=== PATIENT | male | born 1955 | race Caucasian/White ===

== ENCOUNTER 2018-06-20 16:55 | Observation (INO) | payer OTHER, SELFPAY ==
[2018-06-20 16:55] VITALS: BP 111/79; PULSE 99; RESP 18; TEMP 36.6; O2SAT 100; BMI 25.9
--- NOTE | 2018-06-20 17:25 | CT_ITS ---
STUDY: CT ABDOMEN AND PELVIS WITH CONTRAST REASON FOR EXAM: Male, 62 years old. Abdominal pain around tumor site. RADIATION DOSAGE (If Supplied By Facility): CTDIvol = ( 16.03 ) mGy, DLP = ( 988.04 ) mGycm TECHNIQUE: Transaxial images were obtained from the dome of the diaphragm to the symphysis pubis without oral contrast. 100ML ml of Isovue 300 contrast was administered. Sagittal and coronal images were reconstructed. Individualized dose optimization techniques were used for this CT. COMPARISON: None. FINDINGS: The visualized lung bases are unremarkable. The visualized portions of the heart are within normal limits. The liver is diffusely low in attenuation consistent fatty infiltration. There is non-visualization of the gallbladder, which may be secondary to either contraction or a prior cholecystectomy. Normal spleen. Normal pancreas. Normal bilateral adrenal glands. Normal right kidney. Normal left kidney. Normal visualized stomach. Normal small intestine. There are anastomotic sutures within the sigmoid colon. The appendix appears to be surgically absent. There is a enhancing 1 cm soft tissue mass within the mesentery within the mid abdomen. There is an enhancing 6.9 x 2.6 x 5.4 cm soft tissue mass within the anterior abdominal wall within the supraumbilical region. This soft tissue mass extends into the peritoneal cavity and abuts loops of small bowel. There is an additional similar appearing soft tissue focus within the lower anterior abdominal wall cranial to the pubic symphysis measuring 4.7 x 2.6 x 5.1 cm Normal abdominal aorta. Normal inferior vena cava. Normal retroperitoneum. Normal urinary bladder. Normal abdominal wall. There are diffuse degenerative changes of the visualized lumbar spine. CT/Abdomen/Pelvis W IV Cont ONLY IMPRESSION: Soft tissue masses within the anterior abdominal wall consistent with metastases. Soft tissue focus within the mesentery consistent with peritoneal carcinomatosis. Fatty infiltration of the liver. Electronically Signed: Zahra Gutierrez MD at 18:58 EST Tel , Service support ,
--- NOTE | 2018-06-20 17:26 | ED.VISSUMM ---
- ER Visit Summary Date of Service: 06/20/18 Chief Complaint: Abdominal pain History of Present Illness: The patient is a 62 M history of colon CA with abdominal wall metastases. He has had a prior sigmoidectomy. Also prior appendectomy and cholecystectomy. He has had a prior PE and is on Xarelto. Patient's been admitted to [facility] twice in the last 4 months for abdominal pain and what he states her bowel obstructions. He is having the same type of pain for the last 2 days. Limited bowel movement in the last 24 hours. No melena. No fever. He does have nausea. But no vomiting. No dysuria. He is able to urinate. Physical Examination: Middle-aged male. Complaint of pain. Vital signs are stable. He is afebrile. HEENT exam unremarkable. Neck nontender no lymphadenopathy. Lungs clear to auscultation bilaterally. Heart regular rate and rhythm no murmur. Abdomen is soft. Nondistended. He does have a hard mass just above his umbilicus appears to be on the abdominal wall on the inside. He also has some mild bruising by his bellybutton on the which he states he gets from time to time. His abdomen otherwise is soft and nondistended. Normal bowel sounds. No peritoneal signs. He is moving all 4 extremities. Calves are without edema. No cords. Neurologically is awake and alert with no focal motor deficits. Test Results: CBC shows a white count of 3.0. Hemoglobin of 10. I have no old labs available for comparison. Gap of 8 creatinine 0.9. Liver enzymes are normal. Lipase is normal. He had a CAT scan done of his abdomen with IV contrast only which shows a soft tissue mass and peritoneal carcinomatosis but no signs of an acute obstruction. No perforation. Otherwise unremarkable. I discussed all his test results with the patient. Emergency Department Course and Treatment: Patient treated with normal saline times 1 L. Dilaudid for pain and Zofran for nausea. Patient is doing better on repeat exam. Him and his are very anxious he has had bowel obstructions before or the day concerned about going home. He is still having some pain and nausea. He will be admitted for observation and pain control. I have spoken to Dr. Yaneth wells for the patient's oncologist. I have the hospitalist on page for admission. Treatment Plan: Admit for pain control and further observation. Disposition: Observation Impression: Acute abdominal pain Known history of colon CA with abdominal wall metastases This note was generated with [employer] dictation software. It may contain incorrect words, spelling, and punctuation that were not noted in review of the chart prior to signing ED Disposition - Plan for ED Patient: Chief Complaint: Abd Pain Referrals: [facility] Doctor,Out of [Primary Care Provider] -
[2018-06-20] MEDS: HYDROmorphone 1 MG/ML Syringe IV ×2 (17:57→22:07)
[2018-06-20] MEDS: 0.9% Normal Saline 1,000 ML 1000 ML IV (17:57)
[2018-06-20] MEDS: Ondansetron 4 MG/2 ML Vial IV ×2 (17:57→23:10)
[2018-06-20 17:58] VITALS: BP 118/77; PULSE 93; RESP 20; O2SAT 99
[2018-06-20 18:15] LABS: Absolute Lymphocyte Count 1.28 X10^3/ul (0.83-4.51); Basophil# 0.03 X10^3/uL; Eosinophil# 0.05 X10^3/uL; Eosinophils% 1.7 % (0-5); Hematocrit 30.3 % (40-54); Lymphocyte # 1.28 X10^3/ul (4.0); Mean Corpuscular Hgb 29.8 pg (27.0-32.0); Mean Corpuscular Volume 90.2 fL (80-94); Mean Platelet Vol. 8.7 fl (6.2-12.0); Monocyte# 0.64 X10^3/uL; Monocyte% 21.5 % (0-10); Neutrophil # 0.98 X10^3/uL (2.7-7.7); Neutrophil % 32.8 % (47-70); Platelet Count 138 K/mm3 (150-450); RBC Distribution Width CV 14.9 % (11.6-14.6); RBC Distribution Width SD 48.8 fl (35.1-43.9); Red Blood Count 3.36 M/mm3 (4.6-6.2)
[2018-06-20 18:18] LABS: Differential Indicated SCAN CRITERIA MET; POSITIVE COUNT NO; POSITIVE DIFFERENTIAL YES; POSITIVE MORPHOLOGY NO
[2018-06-20 18:19] LABS: AST(SGOT) 24 U/L (15-37); Alanine Aminotransfer ALT/SGPT 26 U/L (16-61); Albumin, Serum 2.8 g/dL (3.2-5.0); Alkaline Phosphatase 82 U/L (45-117); Anion Gap 8 (5-15); BUN 13 mg/dL (7-18); BUN/Creat Ratio 13.5 RATIO (10-20); Calcium,Total 8.3 mg/dL (8.5-10.1); Chloride 114 mmol/L (98-107); Creatinine, Serum 0.96 mg/dL (0.70-1.30); EST Glomerular Filtration Rate 83 mL/min (>60); Est Glom Filt Rate - Afr Amer 101 mL/min (>60); Estimated Creatinine Clearance 85.32 ml/min; Globulin 2.6 g/dL (2.2-4.2); Glucose 85 mg/dL (74-106); Lipase 50 U/L (73-393); Potassium 3.7 mmol/L (3.5-5.1); Protein, Total 5.4 g/dL (6.4-8.2); Sodium Level 144 mmol/L (136-145)
[2018-06-20 18:32] LABS: Differential Comment SCANNED
[2018-06-20 19:00] VITALS: BP 115/72; PULSE 77; RESP 16; O2SAT 97
--- NOTE | 2018-06-20 20:30 | PCM.HP.STD ---
Problem List (1) Intractable abdominal pain Status: Acute History of Present Illness Date of Admission: 06/20/18 Chief Complaint: abdominal pain The patient is a 62 year old M with a significant history of colon cancer status post sigmoidectomy and chemotherapy pack in his abdomen, and chemotherapy every 2 weeks; PE who presented with progressively worsening severe nonradiating vance-umbilical pain that started about 2 days ago. He denies any aggravating factor. At emergency department he received some Dilaudid IV that helped with his pain. Associated with her symptoms is nausea with dry heaving but no vomiting. Patient has had 2 bowel obstruction that [facility]. The day before his admission he had regular bowel movement. However on the morning of his admission he had a small bowel movement. He reported that typically he has diarrhea with chemotherapy. Patient's oncologist Dr. Stone advised patient come to the emergency department. At the ED, CT of his abdomen showed metastasis of colon cancer without any noted bowel obstruction. At emergency department patient was going to be discharged home but because patient was fearful that he might have bowel obstruction he was subsequently admitted. Past Medical History Medical History: Medical History (Last Updated 06/20/18 @ 21:16 by Glen Johnson MD) Colon cancer C18.9 Allergies No Known Allergies Allergy (Verified 06/20/18 16:55) Home Medications: Ambulatory Orders Medication Instructions Recorded Dexamethasone [Decadron] 4 mg PO PRN PRN 06/20/18 Minocycline [Minocin] 100 mg PO BID 06/20/18 Ondansetron [Zofran] 8 mg PO PRN PRN 06/20/18 Potassium Chloride [Klor-Con M20] 40 meq PO BID 06/20/18 Rivaroxaban [Xarelto] 20 mg PO DAILY 06/20/18 proMETHazine tablet [Phenergan 25 mg PO PRN PRN 06/20/18 tablet] Surgical History: - - Sigmoidectomy; chemotherapy packing in abdomen Smoking Status: Former smoker Alcohol: Occasional - *Family History Paternal History Items: Cancer - His paternal grandfather had colon cancer. Review of Systems Constitutional: Reports: Anorexia. Denies: Chills, Fever, Weight Change HEENT: Denies: Head Aches, Sinus Congestion, Sinus Drainage Cardiovascular: Denies: Chest Pain, Palpitations Respiratory: Denies: Cough, Shortness of breath at rest, Sputum production Gastrointestinal: Reports: Abdominal Pain, Nausea. Denies: Vomiting Genitourinary: Denies: Dysuria Musculoskeletal: Denies: Joint Pain, Joint Tenderness Skin: Denies: Rash, Wounds Neurological: Denies: Numbness, Tingling, Focal weakness Psychiatric: Denies: Anxiety, Depression, Homicidal Ideations, Suicidal Ideations Hematologic/ Lymphatic: Denies: Easy Bruising, Easy Bleeding VTE Information - Inpt Only VTE Present on Admission: Yes VTE Mechan Device Prophylaxis: None VTE Pharm Prophylaxis ordered?: No Reason prophylaxis not ordered:: Treatment Not Indicated - Home Xarelto for PE continued. Patient Problems: Active and Suspected Problems (Last Updated 06/20/18 @ 21:16 by Glen Johnson MD) Intractable abdominal pain (Acute) - Physical Exam General: Alert, Oriented x3, Cooperative HEENT: Atraumatic, PERRLA, EOMI, Normocephalic Neck: Supple, No JVD, Negative Carotid Bruits Lungs: Clear to auscultation, Normal air movement Cardiovascular: Regular rate, No murmurs Abdomen: Soft, Bowel Sounds Not Present, Tender - Right vance-umbilical area. A palpable mass at right vance-umbilical area., - Extremities: No edema, Capillary Refill Less than 3 Seconds Skin: No rashes, No breakdown Musculoskeletal: No Tenderness to Palpation of Joints or Extremities Neurological: Cranial nerves II-XII grossly intact Psych/Mental Status: Normal Affect, Appropriate Vital Signs Temp Pulse Resp BP Pulse Ox 98 F 77 16 115/72 97 06/20/18 16:55 06/20/18 19:00 06/20/18 19:00 06/20/18 19:00 06/20/18 19:00 Oxygen Delivery Method Room Air Weight: 87 kg Body Mass Index (BMI) 25.9 Laboratory Tests Past 24 Hrs 06/20/18 06/20/18 17:49 17:49 WBC 3.0 L RBC 3.36 L Hgb 10.0 L Hct 30.3 L MCV 90.2 MCH 29.8 MCHC 33.0 RDW 14.9 H RDW Differential 48.8 H Plt Count 138 L MPV 8.7 Immature Gran % (Auto) 0.000 Neut % (Auto) 32.8 L Lymph % (Auto) 43.0 H [place] % (Auto) 21.5 H Eos % (Auto) 1.7 Baso % (Auto) 1.0 Absolute Neuts (auto) 1.0 L Absolute Lymphs (auto) 1.28 Total Counted Not Reportable Differential Comment SCANNED Sodium 144 Potassium 3.7 Chloride 114 H Carbon Dioxide 22.0 Anion Gap 8 BUN 13 Creatinine 0.96 Estim Creat Clear Calc 85.32 Est GFR (MDRD) Af Amer 101 Est GFR (MDRD) Non-Af 83 BUN/Creatinine Ratio 13.5 Glucose 85 Calcium 8.3 L Total Bilirubin 0.70 Direct Bilirubin 0.20 AST 24 ALT 26 Alkaline Phosphatase 82 Total Protein 5.4 L Albumin 2.8 L Globulin 2.6 Lipase 50 L Assessment/Plan All Active Problems (Last Updated 06/20/18 @ 21:16 by Glen Johnson MD) Intractable abdominal pain (Acute) The patient is a 62 year old M with a significant history of colon cancer status post sigmoidectomy and chemotherapy pack in his abdomen, and chemotherapy every 2 weeks; PE who presented with progressively worsening severe nonradiating vanec-umbilical pain. Intractable abdominal pain in the setting of colon cancer His abdominal pain is likely due to metastatic colon cancer. Supportive treatment with IV hydration; IV Dilaudid; antiemetics of IV Zofran and IV Phenergan. It is unlikely the patient has bowel obstruction since CT abdomen does not support that and he is not constipated but we will keep n.p.o. overnight and monitor. Colon cancer Status post sigmoidoscopy with chemotherapy packing with his abdomen; and regular chemotherapy. Patient reports that he go on vacation in June 2018 after which he will be started on radiation treatment. Reportedly he takes steroids when he gets his chemotherapy. Dr. Stone, his regular oncologist, consulted for inpatient. Facial rash Patient reports that some of his chemotherapy medication gives him facial rash for which reason he is on minocycline. Minocycline continued. History of PE Xarelto continued. Code Visit OBSV E&M: 03738 Initial observation care L3
[2018-06-20 22:00] VITALS: BP 128/82; PULSE 89; RESP 16; TEMP 36.9; O2SAT 100
[2018-06-20] MEDS: Lactated Ringers 1,000 ML 100 ML IV (22:17)
[2018-06-20 22:37] VITALS: BMI 25.9
[2018-06-20 22:40] VITALS: BMI 25.9
[2018-06-20 23:00] VITALS: PULSE 89; RESP 16; BMI 25.1
--- NOTE | 2018-06-20 23:33 | NURSING ---
pt got up to use the restroom was fine till he got back to his bed then nausea hit him, he vomited a small amt, zofran given
[2018-06-21] MEDS: Minocycline 100 MG Capsule PO (00:02)
[2018-06-21] MEDS: HYDROmorphone 1 MG/ML Syringe IV ×2 (01:06→06:13)
[2018-06-21 05:45] VITALS: BP 125/81; PULSE 91; RESP 18; TEMP 36.6; O2SAT 97
--- NOTE | 2018-06-21 06:00 | NURSING ---
After labs were drawn pt wanted to walk in wild without IV fluids being connected. Arlene PHILIPPE aware.
[2018-06-21] MEDS: 0.9% NaCl VAD Flush 10 ML IV ×6 (06:19→12:23)
[2018-06-21 06:27] LABS: Anion Gap 9 (5-15); BUN 12 mg/dL (7-18); BUN/Creat Ratio 12.8 RATIO (10-20); Calcium,Total 8.2 mg/dL (8.5-10.1); Chloride 114 mmol/L (98-107); Creatinine, Serum 0.94 mg/dL (0.70-1.30); EST Glomerular Filtration Rate 86 mL/min (>60); Est Glom Filt Rate - Afr Amer 104 mL/min (>60); Estimated Creatinine Clearance 87.14 ml/min; Glucose 76 mg/dL (74-106); Potassium 3.8 mmol/L (3.5-5.1); Sodium Level 146 mmol/L (136-145)
[2018-06-21 07:10] VITALS: O2SAT 95
[2018-06-21 07:10] LABS: Absolute Lymphocyte Count 1.16 X10^3/ul (0.83-4.51); Absolute Neutrophil Count 0.8 X10^3/uL (2.0-7.7); Basophil# 0.04 X10^3/uL; Basophil% 1.5 % (0-1); Differential Indicated SCAN CRITERIA MET; Eosinophils% 3.7 % (0-5); Hematocrit 30.1 % (40-54); Hemoglobin 9.7 g/dl (13.0-16.5); Lymphocyte # 1.16 X10^3/ul (4.0); Lymphocyte % 43.4 % (19-41); Mean Corp Hgb Conc 32.2 g/gl (32-36); Mean Corpuscular Hgb 29.7 pg (27.0-32.0); Mean Platelet Vol. 9.3 fl (6.2-12.0); Monocyte# 0.58 X10^3/uL; Monocyte% 21.7 % (0-10); Neutrophil # 0.79 X10^3/uL (2.7-7.7); Neutrophil % 29.7 % (47-70); POSITIVE COUNT NO; POSITIVE DIFFERENTIAL YES; POSITIVE MORPHOLOGY NO; Platelet Count 152 K/mm3 (150-450); RBC Distribution Width SD 50.6 fl (35.1-43.9); Red Blood Count 3.27 M/mm3 (4.6-6.2); White Blood Count 2.7 K/mm3 (4.4-11.0)
[2018-06-21 07:39] VITALS: BP 128/83; PULSE 89; RESP 16; TEMP 36.6; O2SAT 95
[2018-06-21] MEDS: Rivaroxaban 20 MG Tablet PO (07:48)
[2018-06-21] MEDS: Lactated Ringers 1,000 ML 100 ML IV (07:48)
[2018-06-21] MEDS: Senna/Docusate Sodium 1 Tablet 2 TABLET PO (07:54)
--- NOTE | 2018-06-21 08:13 | PCM.CONS.B ---
Problem List (1) Intractable abdominal pain Status: Acute Comment: Abdominal wall metastasis (2) Malignant neoplasm metastatic to colon with unknown primary site Status: Chronic (3) Ileus, unspecified Status: Acute - Consult Date of Consult: 06/21/[address] Glen Johnson regarding a patient with metastatic colon cancer presented with abdominal pain and nausea. My final recommendation will be communicated by electronic medical records and to the patient. - Reason for Consult Problem List (1) Intractable abdominal pain Status: Acute History of Present Illness Date of Admission: 06/20/18 Chief Complaint: abdominal pain & nausea The patient is a 62 year old M with a significant history of colon cancer status post sigmoidectomy in January 2015. His tumor was extending to the abdominal wall involving the muscularis propria of the small bowel. Patient underwent chemotherapy with FOLFOX finished in August 2015. CT scan in January 2016 shows small peritoneal omental metastases. Patient underwent additional chemotherapy with FOLFIRI underwent exploratory laparotomy and further resection of residual tumor with HIPEC intraperitoneal chemotherapy (mitomycin C) and bilateral ureteral stent placement on May 22, 2016. Remained free of disease until August 2017. On repeat CT scan unfortunately showed liver metastasis along with intra-abdominal metastasis. He started on chemotherapy FOLFIRI with cetuximab since spring 2017. His last cycle of chemotherapy was 2 weeks ago. He had a rash related to cetuximab & Vectibix on minocycline. He presented with progressively worsening severe nonradiating vance-umbilical pain that started about 2 days ago. He denies any aggravating factor. At emergency department he received some Dilaudid IV that helped with his pain Zofran which helped his nausea. Patient has been having loose stools since chemotherapy. No abdominal bloating or distention. Associated with symptoms of nausea with dry heaving but no vomiting. Patient has had 2 bowel obstruction that was [facility]. The day before his admission he had regular bowel movement. However on the morning of his admission he had a small bowel movement. He reported that typically he has diarrhea with chemotherapy. At the ED, CT of his abdomen showed metastasis of colon cancer without any noted bowel obstruction. Large mass seen in the tear abdominal mass consistent with metastasis. & Possible ileus. At emergency department patient was going to be discharged home but because patient was fearful that he might have bowel obstruction he was subsequently admitted seen by oncology. Past Medical History Medical History: Medical History (Last Updated 06/20/18 @ 21:16 by Glen Johnson MD) Colon cancer C18.9 Allergies No Known Allergies Allergy (Verified 06/20/18 16:55) Home Medications: Ambulatory Orders Medication Instructions Recorded Dexamethasone [Decadron] 4 mg PO PRN PRN 06/20/18 Minocycline [Minocin] 100 mg PO BID 06/20/18 Ondansetron [Zofran] 8 mg PO PRN PRN 06/20/18 Potassium Chloride [Klor-Con M20] 40 meq PO BID 06/20/18 Rivaroxaban [Xarelto] 20 mg PO DAILY 06/20/18 proMETHazine tablet [Phenergan 25 mg PO PRN PRN 06/20/18 tablet] Surgical History: - - Sigmoidectomy; chemotherapy packing in abdomen Smoking Status: Former smoker Alcohol: Occasional - *Family History Paternal History Items: Cancer - His paternal grandfather had colon cancer. Review of Systems Constitutional: Reports: Anorexia. Denies: Chills, Fever, Weight Change HEENT: Denies: Head Aches, Sinus Congestion, Sinus Drainage Cardiovascular: Denies: Chest Pain, Palpitations Respiratory: Denies: Cough, Shortness of breath at rest, Sputum production Gastrointestinal: Reports: Abdominal Pain, Nausea. Denies: Vomiting Genitourinary: Denies: Dysuria Musculoskeletal: Denies: Joint Pain, Joint Tenderness Skin: Denies: Rash, Wounds Neurological: Denies: Numbness, Tingling, Focal weakness Psychiatric: Denies: Anxiety, Depression, Homicidal Ideations, Suicidal Ideations Hematologic/ Lymphatic: Denies: Easy Bruising, Easy Bleeding VTE Information - Inpt Only VTE Present on Admission: Yes VTE Mechan Device Prophylaxis: None VTE Pharm Prophylaxis ordered?: No Reason prophylaxis not ordered:: Treatment Not Indicated - Home Xarelto for PE continued. Patient Problems: Active and Suspected Problems (Last Updated 06/20/18 @ 21:16 by Glen Johnson MD) Intractable abdominal pain (Acute) - Physical Exam General: Alert, Oriented x3, Cooperative HEENT: Atraumatic, PERRLA, EOMI, Normocephalic Neck: Supple, No JVD, Negative Carotid Bruits Lungs: Clear to auscultation, Normal air movement Cardiovascular: Regular rate, No murmurs Abdomen: Soft, Bowel Sounds Not Present, Tender - Right vance-umbilical area. A palpable mass at right vance-umbilical area., - Extremities: No edema, Capillary Refill Less than 3 Seconds Skin: No rashes, No breakdown Musculoskeletal: No Tenderness to Palpation of Joints or Extremities Neurological: Cranial nerves II-XII grossly intact Psych/Mental Status: Normal Affect, Appropriate Vital Signs Temp Pulse Resp BP Pulse Ox 98 F 77 16 115/72 97 06/20/18 16:55 06/20/18 19:00 06/20/18 19:00 06/20/18 19:00 06/20/18 19:00 Oxygen Delivery Method Room Air Weight: 87 kg Body Mass Index (BMI) 25.9 Laboratory Results - last 24 hr 06/20/18 06/20/18 06/21/18 17:49 17:49 05:50 WBC 3.0 L RBC 3.36 L Hgb 10.0 L Hct 30.3 L MCV 90.2 MCH 29.8 MCHC 33.0 RDW 14.9 H RDW Differential 48.8 H Plt Count 138 L MPV 8.7 Immature Gran % (Auto) 0.000 Neut % (Auto) 32.8 L Lymph % (Auto) 43.0 H [place] % (Auto) 21.5 H Eos % (Auto) 1.7 Baso % (Auto) 1.0 Absolute Neuts (auto) 1.0 L Absolute Lymphs (auto) 1.28 Total Counted Not Reportable Differential Comment SCANNED Sodium 144 146 H Potassium 3.7 3.8 Chloride 114 H 114 H Carbon Dioxide 22.0 23.0 Anion Gap 8 9 BUN 13 12 Creatinine 0.96 0.94 Estim Creat Clear Calc 85.32 87.14 Est GFR (MDRD) Af Amer 101 104 Est GFR (MDRD) Non-Af 83 86 BUN/Creatinine Ratio 13.5 12.8 Glucose 85 76 Calcium 8.3 L 8.2 L Total Bilirubin 0.70 Direct Bilirubin 0.20 AST 24 ALT 26 Alkaline Phosphatase 82 Total Protein 5.4 L Albumin 2.8 L Globulin 2.6 Lipase 50 L 06/21/18 05:50 WBC 2.7 L RBC 3.27 L Hgb 9.7 L Hct 30.1 L MCV 92.0 MCH 29.7 MCHC 32.2 RDW 15.0 H RDW Differential 50.6 H Plt Count 152 MPV 9.3 Immature Gran % (Auto) 0.000 Neut % (Auto) 29.7 L Lymph % (Auto) 43.4 H [place] % (Auto) 21.7 H Eos % (Auto) 3.7 Baso % (Auto) 1.5 H Absolute Neuts (auto) 0.8 L Absolute Lymphs (auto) 1.16 Total Counted Not Reportable Differential Comment Sodium Potassium Chloride Carbon Dioxide Anion Gap BUN Creatinine Estim Creat Clear Calc Est GFR (MDRD) Af Amer Est GFR (MDRD) Non-Af BUN/Creatinine Ratio Glucose Calcium Total Bilirubin Direct Bilirubin AST ALT Alkaline Phosphatase Total Protein Albumin Globulin Lipase Assessment/Plan All Active Problems (Last Updated 06/20/18 @ 21:16 by Glen Johnson MD) Intractable abdominal pain (Acute) Nausea (Acute) Ileus (Acute) Leukopenia and anemia secondary to chemotherapy (Acute) Metastatic colon cancer (Chronic) The patient is a 62 year old M with a significant history of colon cancer status post sigmoidectomy with peritoneal metastasis He presented with progressively worsening severe nonradiating vance-umbilical pain secondary to abdominal wall metastasis Ileus and leukopenia/anemia secondary to chemotherapy 1) Intractable abdominal pain in the setting of metastatic colon cancer His abdominal pain is due to metastatic colon cancer. There is no evidence of small bowel obstruction. I personally reviewed CT scan with patient and family today. Plan: -Discharge home on MS Contin 15mg BID -Vicodin or ibuprofen every 6 hours as needed for breakthrough pain. -Start stool softeners; Senokot and Colace once his stool is formed -Continue Zofran and Phenergan as needed for nausea. 2) Colon cancer Status post sigmoidoscopy with chemotherapy on hold until after the new year. Patient reports that he go on vacation in June 2018; after which he will be started on palliative radiation treatment in July to his abdominal wall metastasis Plan: -Stop minocycline -Continue Xarelto -Follow-up with Dr. Stone next week. cc: Dr. Geraldo Stone; Dr. Glen Johnson
[2018-06-21] MEDS: morphine SR 15 MG Tablet PO (09:19)
--- NOTE | 2018-06-21 11:00 | CASEMGMT ---
DENAE CONTRERAS Face to Face with patient for initial transition planning/care coordination assessment. RN CM introduced self and role at [facility]. Patient lying in bed, alert and oriented. Patient willing to participate in assessment and is able to answer all questions appropriately. Care providers, pharmacy, and demographics verified. Patient wishes to discharge home, denies need for home health at this time. Patient states he has no further needs or concerns at this time. CM to follow for discharge planning needs that may arise. Disposition Plan: Patient to discharge home with family support and follow-up plans in place. Keyona FLORES, RN, CM
--- NOTE | 2018-06-21 11:31 | PCM.DC ---
- Discharge Diagnoses Current Active Problems: Current Active and Chronic Problems (Last Updated 06/20/18 @ 21:16 by Glen Johnson MD) Intractable abdominal pain (Acute) Abdominal wall metastasis Malignant neoplasm metastatic to colon with unknown primary site (Chronic) Ileus, unspecified (Acute) You will use the following diet at home:: No restrictions Your food should be the consistency of: Regular Your liquids should be the consistency of: Regular/Thin Discharge Activity: Return to Normal Activity Allergies/Adverse Reactions: Allergies hydromorphone [From Dilaudid] Adverse Reaction (Verified 06/21/18 07:14) Other URINARY RETENTION Medications to take at Discharge Ondansetron [Zofran] 8 mg PO PRN PRN 06/20/18 Potassium Chloride [Klor-Con M20] 40 meq PO BID 06/20/18 Rivaroxaban [Xarelto] 20 mg PO DAILY 06/20/18 proMETHazine tablet [Phenergan tablet] 25 mg PO PRN PRN 06/20/18 Bisacodyl [Dulcolax] 5 mg PO DAILY PRN PRN #30 tablet 06/21/18 Hydrocodone Bitart/Apap 5-325 [[place] 5/325] 1 tablet PO Q6H PRN PRN 7 Days #28 tablet 06/21/18 Magnesium Hydroxide [Milk Of Magnesia] 30 ml PO DAILY PRN PRN #1 bottle 06/21/18 Senna/Docusate Sodium [Senokot-S] 2 tablet PO BID #60 tablet 06/21/18 morphine SR tablet [Ms Contin] 15 mg PO BID #14 tablet 06/21/18 The following prescriptions were given: Bisacodyl [Dulcolax] 5 mg PO DAILY PRN PRN #30 tablet PRN Reason: Constipation Hydrocodone Bitart/Apap 5-325 [[place] 5/325] 1 tablet PO Q6H PRN PRN 7 Days #28 tablet PRN Reason: Severe Pain (6-05/01) Magnesium Hydroxide [Milk Of Magnesia] 30 ml PO DAILY PRN PRN #1 bottle PRN Reason: Constipation morphine SR tablet [Ms Contin] 15 mg PO BID #14 tablet Senna/Docusate Sodium [Senokot-S] 2 tablet PO BID #60 tablet Primary Care Physician: [facility] Doctor,Out of [NON-STAFF] - Please follow up with your Primary Care Physician in: 1-2 weeks Test Results: Test results from this visit will be discussed in further detail at your follow-up appointment, if applicable. Please Follow Up With: Geraldo Stone DO When: 1 week Proposed Discharge Date: 06/21/18
[2018-06-21 12:22] VITALS: BP 118/74; PULSE 100; RESP 18; TEMP 36.9; O2SAT 100
[2018-06-21] MEDS: Ibuprofen 400 MG Tablet PO (12:31)
--- NOTE | 2018-06-21 14:52 | DS.PCM_ITS ---
<Lester Trinh - Last Filed: 06/21/18 14:45> Discharge Date and Diagnosis Date of Admission: 06/20/18 Date of Discharge: 06/21/18 - Primary Discharge Diagnosis Intractable Abdominal pain 2/2 colorectal cancer with peritoneal carcinomatsosis, s/p sigmoidectomy, chemo. Hx PE - Secondary Discharge Diagnosis Chronic Problems (Last Updated 06/20/18 @ 21:16 by Glen Johnson MD) Malignant neoplasm metastatic to colon with unknown primary site (Chronic) Hospital Course and Treatment Imaging Results: CT/Abdomen/Pelvis W IV Cont ONLY IMPRESSION: Soft tissue masses within the anterior abdominal wall consistent with metastases. Soft tissue focus within the mesentery consistent with peritoneal carcinomatosis. Fatty infiltration of the liver. Consults: Yaneth - oncology Operations: None Procedures: None Summary of Care Provided: Hospital Course: The patient is a 62 year old M with pmhx as above who is being treated by Dr. Stone for colorectal cancer, mets to the liver, peritoneum, small bowel, completed chemo about a month prior, who presented to the ER with intractable abdominal pain. CT abdomen showed carcinomatosis as above, and there was concern for ileus. He was made NPO and admitted to the [facility] floor and oncology was consulted. Dr. Wolfe felt the pain was 2/2 the cancer, and there was no obstruction. He was placed on morphine and norco, and a bowel regimen, and discharged home. He will follow up with Dr. Stone next week. He plans to pursue radiation in July after touring [place]. Minocycline was DCd (was on for rash from chemo which is complete) Patient was seen by Lester Trinh PA-C under the supervision of Dr. Salazar [] - Physical Exam General: Alert, Oriented x3, Cooperative HEENT: Atraumatic, PERRLA, EOMI, Normocephalic Neck: Supple, No JVD, Negative Carotid Bruits Lungs: Clear to auscultation, Normal air movement Cardiovascular: Regular rate, No murmurs Abdomen: Bowel Sounds Present, Soft, Tender Extremities: No edema, Capillary Refill Less than 3 Seconds Skin: No rashes, No breakdown Musculoskeletal: No Tenderness to Palpation of Joints or Extremities Neurological: Cranial nerves II-XII grossly intact Psych/Mental Status: Normal Affect, Appropriate, Alert and oriented to time, place, person, mood and affect Vital Signs Temp Pulse Resp BP Pulse Ox 98.5 F 100 18 118/74 100 06/21/18 12:22 06/21/18 12:22 06/21/18 12:22 06/21/18 12:22 06/21/18 12:22 Oxygen Delivery Method Room Air Weight: 185 lb 6.54 oz Body Mass Index (BMI) 25.1 Intake and Output for Last 24 Hours 06/19/18 06/20/18 06/21/18 23:59 23:59 23:59 Intake Total 2234 / 2234 Output Total 925 / 925 Balance 1309 / 1309 Laboratory Tests Past 24 Hrs 06/20/18 06/20/18 06/21/18 17:49 17:49 05:50 WBC 3.0 L RBC 3.36 L Hgb 10.0 L Hct 30.3 L MCV 90.2 MCH 29.8 MCHC 33.0 RDW 14.9 H RDW Differential 48.8 H Plt Count 138 L MPV 8.7 Immature Gran % (Auto) 0.000 Neut % (Auto) 32.8 L Lymph % (Auto) 43.0 H [place] % (Auto) 21.5 H Eos % (Auto) 1.7 Baso % (Auto) 1.0 Absolute Neuts (auto) 1.0 L Absolute Lymphs (auto) 1.28 Total Counted Not Reportable Differential Comment SCANNED Sodium 144 146 H Potassium 3.7 3.8 Chloride 114 H 114 H Carbon Dioxide 22.0 23.0 Anion Gap 8 9 BUN 13 12 Creatinine 0.96 0.94 Estim Creat Clear Calc 85.32 87.14 Est GFR (MDRD) Af Amer 101 104 Est GFR (MDRD) Non-Af 83 86 BUN/Creatinine Ratio 13.5 12.8 Glucose 85 76 Calcium 8.3 L 8.2 L Total Bilirubin 0.70 Direct Bilirubin 0.20 AST 24 ALT 26 Alkaline Phosphatase 82 Total Protein 5.4 L Albumin 2.8 L Globulin 2.6 Lipase 50 L 06/21/18 05:50 WBC 2.7 L RBC 3.27 L Hgb 9.7 L Hct 30.1 L MCV 92.0 MCH 29.7 MCHC 32.2 RDW 15.0 H RDW Differential 50.6 H Plt Count 152 MPV 9.3 Immature Gran % (Auto) 0.000 Neut % (Auto) 29.7 L Lymph % (Auto) 43.4 H [place] % (Auto) 21.7 H Eos % (Auto) 3.7 Baso % (Auto) 1.5 H Absolute Neuts (auto) 0.8 L Absolute Lymphs (auto) 1.16 Total Counted Not Reportable Differential Comment Sodium Potassium Chloride Carbon Dioxide Anion Gap BUN Creatinine Estim Creat Clear Calc Est GFR (MDRD) Af Amer Est GFR (MDRD) Non-Af BUN/Creatinine Ratio Glucose Calcium Total Bilirubin Direct Bilirubin AST ALT Alkaline Phosphatase Total Protein Albumin Globulin Lipase Discharge Diet: No Restrictions Discharge Activity: Return to Normal Activity Home Medications: Medications to take at Discharge Ondansetron [Zofran] 8 mg PO PRN PRN 06/20/18 Potassium Chloride [Klor-Con M20] 40 meq PO BID 06/20/18 Rivaroxaban [Xarelto] 20 mg PO DAILY 06/20/18 proMETHazine tablet [Phenergan tablet] 25 mg PO PRN PRN 06/20/18 Bisacodyl [Dulcolax] 5 mg PO DAILY PRN PRN #30 tablet 06/21/18 Hydrocodone Bitart/Apap 5-325 [Bul[place]de 5/325] 1 tablet PO Q6H PRN PRN 7 Days #28 tablet 06/21/18 Magnesium Hydroxide [Milk Of Magnesia] 30 ml PO DAILY PRN PRN #1 bottle 06/21/18 Senna/Docusate Sodium [Senokot-S] 2 tablet PO BID #60 tablet 06/21/18 morphine SR tablet [Ms Contin] 15 mg PO BID #14 tablet 06/21/18 Following Prescrptions Were Given to Patient: Bisacodyl [Dulcolax] 5 mg PO DAILY PRN PRN #30 tablet PRN Reason: Constipation Hydrocodone Bitart/Apap 5-325 [Bul[place]de 5/325] 1 tablet PO Q6H PRN PRN 7 Days #28 tablet PRN Reason: Severe Pain (-05/01) Magnesium Hydroxide [Milk Of Magnesia] 30 ml PO DAILY PRN PRN #1 bottle PRN Reason: Constipation morphine SR tablet [Ms Contin] 15 mg PO BID #14 tablet Senna/Docusate Sodium [Senokot-S] 2 tablet PO BID #60 tablet Primary Care Physician: [facility] Doctor,Out of [NON-STAFF] - Please follow up with your Primary Care Physician in: 1-2 weeks Please Follow Up With: Geraldo Stone DO When: 1 week Disposition: Home Minutes spent on discharge:: 35 Patient Condition:: Stable Medical Necessity - Tobacco Use Smoking Status: Former smoker Meaningful Use Info Meaningful Use Diagnoses (Choose all that apply): None applicable <Glen Salazar - Last Filed: 06/21/18 15:00> Discharge Date and Diagnosis - Secondary Discharge Diagnosis Chronic Problems (Last Updated 06/20/18 @ 21:16 by Glen Johnson MD) Malignant neoplasm metastatic to colon with unknown primary site (Chronic) Hospital Course and Treatment Summary of Care Provided: Hospitalist note: Discharge summary above reviewed and I agree with above discharge plan. Patient was admitted for intractable abdominal pain in context of history of metastatic colon cancer. CT scan abdomen and pelvis with IV contrast revealed soft tissue masses within the anterior abdominal wall consistent with metastasis as well as soft tissue focus within the mesentery consistent with peritoneal carcinomatosis. His routine blood work was remarkable for chronic anemia, otherwise normal. His LFT and lipase were normal. Patient was treated with pain medications. Oncology consulted and stated that his pain due to the metastatic cancer and there was no evidence of bowel obstruction. His vital signs were stable. With pain medications, his pain improved. Patient discharged home in a stable medical condition, discharged on [place] as needed for pain, Zofran as needed for nausea and vomiting, plan to follow-up with Dr. Stone next week, recommended follow-up with PCP in 1-2 weeks. - Physical Exam General: Alert, Oriented x3, Cooperative, No apparent distress. HEENT: Atraumatic, PERRLA, EOMI. Neck: Supple, No JVD, Negative Carotid Bruits, Trachea Midline, Thyroid Normal. Lungs: Clear to auscultation, Normal air movement, No rhonchi, No wheeze, No rales. Cardiovascular: Regular rate, Regular Rhythm, Normal S1, Normal S2, PMI Normal. Abdomen: Bowel Sounds Present, Soft, tenderness is just above the umbilicus, no guarding or rigidity, Non-Distended, No Hepato-splenomegaly. Extremities: No clubbing, No cyanosis, No edema Skin: No rashes, No breakdown Neurological: Neuro grossly intact Vital Signs are stable. This note was generated with [employer] dictation software. It may contain incorrect words, spelling, and punctuation that were not noted in checking the note before signing. - Physical Exam Vital Signs Temp Pulse Resp BP Pulse Ox 98.5 F 100 18 118/74 100 06/21/18 12:22 06/21/18 12:22 06/21/18 12:22 06/21/18 12:22 06/21/18 12:22 Oxygen Delivery Method Room Air Weight: 185 lb 6.54 oz Body Mass Index (BMI) 25.1 Intake and Output for Last 24 Hours 06/19/18 06/20/18 06/21/18 23:59 23:59 23:59 Intake Total 2234 / 2234 Output Total 925 / 925 Balance 1309 / 1309 Laboratory Tests Past 24 Hrs 06/20/18 06/20/18 06/21/18 17:49 17:49 05:50 WBC 3.0 L RBC 3.36 L Hgb 10.0 L Hct 30.3 L MCV 90.2 MCH 29.8 MCHC 33.0 RDW 14.9 H RDW Differential 48.8 H Plt Count 138 L MPV 8.7 Immature Gran % (Auto) 0.000 Neut % (Auto) 32.8 L Lymph % (Auto) 43.0 H [place] % (Auto) 21.5 H Eos % (Auto) 1.7 Baso % (Auto) 1.0 Absolute Neuts (auto) 1.0 L Absolute Lymphs (auto) 1.28 Total Counted Not Reportable Differential Comment SCANNED Sodium 144 146 H Potassium 3.7 3.8 Chloride 114 H 114 H Carbon Dioxide 22.0 23.0 Anion Gap 8 9 BUN 13 12 Creatinine 0.96 0.94 Estim Creat Clear Calc 85.32 87.14 Est GFR (MDRD) Af Amer 101 104 Est GFR (MDRD) Non-Af 83 86 BUN/Creatinine Ratio 13.5 12.8 Glucose 85 76 Calcium 8.3 L 8.2 L Total Bilirubin 0.70 Direct Bilirubin 0.20 AST 24 ALT 26 Alkaline Phosphatase 82 Total Protein 5.4 L Albumin 2.8 L Globulin 2.6 Lipase 50 L 06/21/18 05:50 WBC 2.7 L RBC 3.27 L Hgb 9.7 L Hct 30.1 L MCV 92.0 MCH 29.7 MCHC 32.2 RDW 15.0 H RDW Differential 50.6 H Plt Count 152 MPV 9.3 Immature Gran % (Auto) 0.000 Neut % (Auto) 29.7 L Lymph % (Auto) 43.4 H [place] % (Auto) 21.7 H Eos % (Auto) 3.7 Baso % (Auto) 1.5 H Absolute Neuts (auto) 0.8 L Absolute Lymphs (auto) 1.16 Total Counted Not Reportable Differential Comment Sodium Potassium Chloride Carbon Dioxide Anion Gap BUN Creatinine Estim Creat Clear Calc Est GFR (MDRD) Af Amer Est GFR (MDRD) Non-Af BUN/Creatinine Ratio Glucose Calcium Total Bilirubin Direct Bilirubin AST ALT Alkaline Phosphatase Total Protein Albumin Globulin Lipase Disposition: Home Minutes spent on discharge:: 24 Patient Condition:: Stable Meaningful Use Info Meaningful Use Diagnoses (Choose all that apply): None applicable Code Visit OBSV E&M: 54906 Observation care discharge
--- OUTSIDE RECORDS SUMMARY | 2018-08-15 23:26 | XMS RPT_ITS ---
:1955 Author Organization OHIP Care Team Providers Name Role Phone GERALDO STONE Referring Unavailable JUSTIN DHILLON Attending Unavailable GERALDO STONE Referring Unavailable JUSTIN DHILLON Admitting Unavailable JUSTIN DHILLON Attending Unavailable Glen Johnson Admitting Unavailable Mariely Chowdary Primary Care Unavailable Geraldo Stone Consulting Unavailable Glen Salazar Attending Unavailable Glen Johnson Admitting Unavailable Agyepong, Glen Attending Unavailable Chowdary, Mariely Primary Care Unavailable Agyepong, Glen Consulting Unavailable Agyepong, Glen Admitting Unavailable Chowdary, Mariely Primary Care Unavailable Masci, Geraldo Consulting Unavailable Ashelfah, Glen Attending Unavailable Ashelfah, Glen Consulting Unavailable SABOTA, ANGUS RODARTE Admitting Unavailable SABOTA, ANGUS RODARTE Attending Unavailable SABOTA, ANGUS RODARTE Primary Care Unavailable CHOWDARY, MARIELY T Referring Unavailable CHOWDARY, MARIELY T Consulting Unavailable PROVIDER, UNKNOWN Consulting Unavailable PROVIDER, UNKNOWN Consulting Unavailable PROVIDER, UNKNOWN Consulting Unavailable MAGANA, IZABELA Admitting Unavailable MAGANA, IZABELA Attending Unavailable MAGANA, IZABELA Primary Care Unavailable CHOWDARY, MARIELY T Consulting Unavailable CHOWDARY, MARIELY T Referring Unavailable PROVIDER, UNKNOWN Consulting Unavailable PROVIDER, UNKNOWN Consulting Unavailable PROVIDER, UNKNOWN Consulting Unavailable CHOWDARY, MARIELY T Referring Unavailable CHOWDARY, MARIELY T Consulting Unavailable MARGA, SKYLER RODARTE Admitting Unavailable OMRAN, SKYLER RODARTE Attending Unavailable MARGA, SKYLER RODARTE Primary Care Unavailable PROVIDER, UNKNOWN Consulting Unavailable PROVIDER, UNKNOWN Consulting Unavailable PROVIDER, UNKNOWN Consulting Unavailable MASCI, GERALDO A Referring Unavailable MASCI, GERALDO A Referring Unavailable MASCI, GERALDO A Referring Unavailable MASCI, GERALDO A Referring Unavailable MASCI, GERALDO A Attending Unavailable MASCI, GERALDO A Referring Unavailable MASCI, GERALDO A Referring Unavailable MASCI, GERALDO A Referring Unavailable MASCI, GERALDO A Referring Unavailable MASCI, GERALDO A Referring Unavailable MASCI, GERALDO A Referring Unavailable MASCI, GERALDO A Referring Unavailable MASCI, GERALDO A Referring Unavailable MASCI, GERALDO Galan Attending Unavailable MASCI, GERALDO A Referring Unavailable MASCI, GERALDO A Referring Unavailable MASCI, GERALDO A Referring Unavailable MASCI, GERALDO A Referring Unavailable MASCI, GERALDO A Referring Unavailable MASCI, GERALDO A Referring Unavailable MASCI, GERALDO A Referring Unavailable MASCI, GERALDO A Referring Unavailable MASCI, GERALDO A Referring Unavailable MASCI, GERALDO A Referring Unavailable MASCI, GERALDO A Referring Unavailable MASCI, GERALDO A Referring Unavailable MASCI, GERALDO A Referring Unavailable MASCI, GERALDO A Attending Unavailable MASCI, GERALDO A Referring Unavailable MASCI, GERALDO A Referring Unavailable MASCI, GERALDO A Referring Unavailable MASCI, GERALDO A Referring Unavailable MASCI, GERALDO A Referring Unavailable MASCI, GERALDO A Referring Unavailable MASCI, GERALDO A Referring Unavailable MASCI, GERALDO A Referring Unavailable MASCI, GERALDO A Referring Unavailable MASCI, GERALDO A Attending Unavailable MASCI, GERALDO A Referring Unavailable MASCI, GERALDO A Referring Unavailable MASCI, GERALDO A Referring Unavailable MASCI, GERALDO A Referring Unavailable MASCI, GERALDO A Referring Unavailable MASCI, GERALDO A Referring Unavailable MASCI, GERALDO A Referring Unavailable MASCI, GERALDO A Referring Unavailable MASCI, GERALDO A Referring Unavailable MASCI, GERALDO A Referring Unavailable MASCI, GERALDO A Referring Unavailable MASCI, GERALDO A Referring Unavailable MASCI, GERALDO A Referring Unavailable MASCI, GERALDO A Referring Unavailable MASCI, GEARLDO A Referring Unavailable MASCI, GERALDO A Attending Unavailable MASCI, GERALDO A Referring Unavailable MASCI, GERALDO A Referring Unavailable MASCI, GERALDO A Referring Unavailable MASCI, GERALDO A Referring Unavailable MASCI, GERALDO A Referring Unavailable TATIANA CARTAGENA (STRUCTURAL WORKER) Attending Unavailable TATIANA CARTAGENA (STRUCTURAL WORKER) Referring Unavailable MASCI, GERALDO A Referring Unavailable MASCI, GERALDO A Attending Unavailable MASCI, GERALDO A Referring Unavailable MASCI, GERALDO A Referring Unavailable MASCI, GERALDO A Referring Unavailable MASCI, GERALDO A Referring Unavailable MASCI, GERALDO A Referring Unavailable MASCI, GERALDO A Attending Unavailable MASCI, GERALDO A Referring Unavailable MASCI, GERALDO A Referring Unavailable MASCI, GERALDO A Referring Unavailable MASCI, GERALDO A Referring Unavailable MASCI, GERALDO A Referring Unavailable MASCI, GERALDO A Referring Unavailable MASCI, GERALDO A Referring Unavailable MASCI, GERALDO A Referring Unavailable MASCI, GERALDO A Attending Unavailable MASCI, GERALDO A Referring Unavailable MASCI, GERALDO A Referring Unavailable MASCI, GERALDO A Referring Unavailable MASCI, GERALDO A Referring Unavailable MASCI, GERALDO A Referring Unavailable TATIANA CARTAGENA (STRUCTURAL WORKER) Attending Unavailable MASCI, GERALDO A Referring Unavailable MASCI, GERALDO A Referring Unavailable TATIANA CARTAGENA (STRUCTURAL WORKER) Referring Unavailable TATIANA CARTAGENA (STRUCTURAL WORKER) Referring Unavailable MASCI, GERALDO A Referring Unavailable MASCI, GERALDO A Attending Unavailable MASCI, GERALDO A Referring Unavailable MASCI, GERALDO A Referring Unavailable MASCI, GERALDO A Referring Unavailable MASCI, GERALDO A Attending Unavailable MASCI, GERALDO A Referring Unavailable MASCI, GERALDO A Referring Unavailable MASCI, GERALDO A Referring Unavailable MASCI, GERALDO A Referring Unavailable MASCI, GERALDO A Referring Unavailable MASCI, GERALDO A Attending Unavailable MASCI, GERALDO A Referring Unavailable MASCI, GERALDO A Referring Unavailable MASCI, GERALDO A Referring Unavailable MASCI, GERALDO A Referring Unavailable MASCI, GERALDO A Referring Unavailable TATIANA CARTAGENA (STRUCTURAL WORKER) Attending Unavailable MASCI, GERALDO A Referring Unavailable TATIANA CARTAGENA (STRUCTURAL WORKER) Referring Unavailable MASCI, GERALDO A Referring Unavailable MASCI, GERALDO A Referring Unavailable MASCI, GERALDO A Referring Unavailable MASCI, GERALDO A Referring Unavailable MASCI, GERALDO A Referring Unavailable TATIANA CARTAGENA (STRUCTURAL WORKER) Attending Unavailable MASCI, GERALDO A Referring Unavailable MASCI, GERALDO A Referring Unavailable TATIANA CARTAGENA (STRUCTURAL WORKER) Referring Unavailable MASCI, GERALDO A Attending Unavailable MASCI, GERALDO A Referring Unavailable [facility] Primary Care Unavailable MASCI, GERALDO A Referring Unavailable [facility] Primary Care Unavailable MASCI, GERALDO A Referring Unavailable ALI, NOAMAN S Attending Unavailable [facility] Primary Care Unavailable ALI, NOAMAN S Admitting Unavailable ALI, NOAMAN S Attending Unavailable [facility] Referring Unavailable [facility] Primary Care Unavailable MIRA CISSE (STRUCTURAL WORKER) Attending Unavailable PROBLEMS PROBLEMS DATE TYPE CONDITION / CODE ATTENDING STATUS SOURCE 08/21/2017 Active Malignant neoplasm ALI, NOAMAN Active [place] of sigmoid colon / Clinic Other C18.7(ICD-10) [place] Repository 06/08/2016 Active Secondary malignant ALI, 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 Clinic Other and intrahepatic [place] bile duct / Repository C78.7(ICD-10) 05/22/2016 Active Disseminated ALI, NOAMAN Active [place] malignant neoplasm, Clinic Other unspecified / [place] C80.0(ICD-10) Repository 08/21/2017 Admitting Unknown / ALI NOAMAN S Active [facility] diagnosis [facility](Unknown) [facility] Repository 06/21/2018 Unknown C18.9 - Malignant Ashelf[place], Active [place] neoplasm of colon, [facility] unspecified / Hospital C18.9(ICD-10) Repository 06/21/2018 Unknown 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[place], 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 / Repository C78.5(ICD-10) 06/21/2018 Unknown C80.1 - Malignant [place], Active [place] (primary) neoplasm, [facility] unspecified / Hospital C80.1(ICD-10) Repository 06/17/2018 Active Dyspnea, unspecified NA Active [facility] / R06.00(ICD-10) Clinic Main [place] Repository 06/17/2018 Active Other abnormalities NA Active [place] of breathing / Clinic Main R06.89(ICD-10) [place] Repository 05/06/2018 Admitting Acute pancreatitis SKYLER GRESHAM Active [facility] without necrosis or [facility] infection, Hospital unspecified / Repository K8590(ICD-10) 05/06/2018 Principle Acute pancreatitis SKYLER GRESHAM Active [facility] without necrosis or 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 and Hospital peritoneum / Repository C786(ICD-10) 04/05/2018 Active Nausea with NA Active [facility] vomiting, Clinic Main unspecified / [place] R11.2(ICD-10) Repository 10/30/2017 Active [place] embolus of NA Active [place] pulmonary artery Clinic Main without acute cor [place] pulmonale / Repository I26.92(ICD-10) 10/06/2016 Active Generalized skin NA Active [facility] eruption due to Clinic Main drugs and [place] medicaments taken Repository internally / L27.0(ICD-10) 02/22/2018 Active Lower abdominal NA Active [facility] pain, unspecified / Clinic Main R10.30(ICD-10) [place] Repository 09/25/2017 Active Unknown / NA Active [facility] UNK(Unknown) Clinic Other [place] Repository 05/22/2016 Active 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 / Repository C78.6(ICD-10) 05/22/2016 Active Malignant (primary) NA Active [facility] neoplasm, Clinic Main unspecified / [place] C80.1(ICD-10) Repository 08/21/2017 Active Malignant neoplasm NA Active [place] of colon, Clinic Main unspecified / [place] C18.9(ICD-10) Repository 05/28/2017 Admitting Chest pain, ANGUS ROBERTS Active [facility] Diagnosis unspecified / [facility] R079(ICD-10) Hospital Repository 05/28/2017 Principle Calculus of ANGUS ROBERTS Active [facility] Diagnosis gallbladder with [facility] cholecystitis Repository without obstruction / K8010(ICD-10) PROCEDURES PROCEDURES No Procedure Records FoundRESULTS RESULTS EKG Observed: 07/05/2018 Status: F Source: [place] 2:03 PM CLINIC OTHER CAMPUS REPOSITORY NAME : BECCA MAGANA PID : [id number] : 1955 Gender : Male Race : ORD : Procedure Date : Jul 05 2018 14:03 Edit Date : Jul 06 2018 13:37 Diagnosis:NORMAL SINUS RHYTHM NORMAL ECG WHEN COMPARED WITH ECG OF 30-DEC-2014 22:44, NO SIGNIFICANT CHANGE WAS FOUND Confirmed by MD Moe Vinay ([id number]) on 07/06/2018 1:37:01 PM Ventricular Rate : 88 BPM Atrial Rate : 88 BPM P-R Interval : 186 ms QRS Duration : 88 ms Q-T Interval : 380 ms QTC Calculation(Bezet) : 459 ms P Compton : 27 degrees R Compton : 44 degrees T Compton : 30 degrees Test Reason : Location : 50 : [address] [place] [address] Overread By : MD Moe Vinay Editted By : MD Moe Vinay Referred By : , Acquired by : Kalyn ZAPATA PLAN OF CARE Observed: 07/05/2018 Status: COMPLETED Source: [place] 11:03 AM [facility] REPOSITORY HNO ID: [id number] Author: Selene Mitchell (Pharmacist) Service: Pharmacy Author Type: Pharmacist Type: Plan of Care Filed: 07/05/2018 11:04 AM Note Text: PHARMACY DISCHARGE MEDICATION COUNSELING PATIENT NAME: Becca Magana DATE of SERVICE: 07/05/18 TIME of SERVICE: 1030 The patient accepted medication counseling for the discharge medications below. The patient was given the opportunity to ask questions regarding medication indication, interactions and side effects. Discharge Medications: Oxycodone, Zofran, Senna-S Patient verbalizes understanding of counseling. Signature: SELENE MITCHELL PHARMACIST Date: July 05, 2018 Time: 11:03 AM PLAN OF CARE Observed: 07/05/2018 Status: COMPLETED Source: [place] 10:43 AM [facility] REPOSITORY HNO ID: [id number] Author: Sunita Keyes (Telemetry Nurse) Service: (none) Author Type: (none) Type: Plan of Care Filed: 07/05/2018 10:44 AM Note Text: Pharmacy Discharge Medication Service: This patient has elected to receive their discharge prescriptions through the [facility] Bedside Prescription Delivery program. The prescriptions are currently being processed. A follow-up note will be entered once the prescriptions have been filled and delivered to the patient. Please contact me with any questions or updates to the patient's discharge medications. Sunita Keyes (Telemetry Nurse) DCT Contact Info: Phone extension [phone] PLAN OF CARE Observed: 07/05/2018 Status: COMPLETED Source: [place] 10:43 AM [facility] REPOSITORY HNO ID: [id number] Author: Sunita Keyes (Telemetry Nurse) Service: (none) Author Type: (none) Type: Plan of Care Filed: 07/05/2018 10:43 AM Note Text: [facility] BEDSIDE DELIVERY SURVEY 1. Patient to use [facility] Bedside Delivery - YES 2. If fax, patient would like us to fax prescriptions to Pharmacy of choice a. Pharmacy: b. Location: c. Phone: 3. Insurance card on file - YES 4. Credit card for payment - N/A Oxycodone 5mg Sunita Keyes, Pharmacy [phone] if you have questions upon discharge PROGRESS Observed: 07/05/2018 Status: COMPLETED Source: [place] 9:56 AM [facility] REPOSITORY HNO ID: [id number] Author: July Borrego Service: Pain Management Author Type: Physician Type: Progress Notes Filed: 07/05/2018 9:58 AM Note Text: BECCA MAGANA 62 year old PAIN CONSULTATION: Abdominal pain, colon cancer Pain Description: some increased pain yest; received more oxycodone- new LUE edema- to be eval by Surgery Interval HPI: new LUE edema yesterday; port working 07/01 Surgery- clamp G tube; ALBERTA to bulb sxn, added Toradol 06/29 Pain currently 10/10 in severity, improves to perhaps 8/10 at its best, inadequately relieved, Sharp/aching, aggravated by any movement, palpation. Subjective HPI: 62-year-old male, status post surgery and 06/28/2018 at which time he underwent resection of abdominal wall masses ?3, SBR ?3 with 1 anastomosis, splenectomy, repair of diaphragmatic defect, insertion of left chest tube, gastric duodenostomy tube placement, bilateral myocutaneous flaps, placement of retrocrural mass, with findings of masses of anterior and right lateral abdominal wall, splenic lesions with diaphragmatic extension, now resected. He had presented to [facility] Emergency department on 06/20 with progressive nonradiating periumbilical pain, with findings of concern for bowel obstruction that was managed conservatively. He was seen by Dr. Dhillon on the day of admission who have directly admitted secondary to persistent and worsening abdominal pain, and sought mechanical cause of partial small bowel obstruction. At presentation, he was able to eat, was having bowel movements without bleeding, no nausea, emesis, and also denied pulmonary, and complaints. This patient has an extensive history of metastatic colon carcinoma. He is followed by Dr. Stone in [place] who summarizes his history with his malignancy as follows: 1) Metastatic recurrence of stage III colon cancer. MSI stable. BRAF - A sequence change: [id number] ([id number]) was detected at approximately 48% allele proportion. [Reference sequence: ([id number])]. KRAS - No variant detected [Reference?sequence: ([id number])]. NRAS - No variant detected [Reference sequence: ([id number])]. ? Patient referred by ongoing management of metastatic colon cancer. ? HPI: The patient is a 62 yo male who developed abdominal pain around June 2014. His symptoms progressively worsened throughout the spring. He also began losing weight in the spring and this culminated in a hospitalization for what was thought to be diverticulitis in December 2014. He underwent a CT scan which was thought to demonstrated a left lower quadrant abscess. The drain was placed and he was treated with antibiotic treatment. Pain flared and a repeat CT scan on 01/24/15 demonstrated marked inflammatory phlegmonous changes of the proximal sigmoid colon. He therefore underwent a colonoscopy and sigmoid colon resection with lymph node dissection on 01/29/2015. The sigmoid colon was noted to be adherent to the anterior abdominal wall and small bowel. The final pathology demonstrated an invasive moderately differentiated adenocarcinoma, tumor extension through the colonic wall and involving the muscularis propria of the small bowel. The proximal margin resection had a small focus of tumor present at the serosal surface. None of 25 lymph nodes were involved. The patient went on to receive 12 cycles FOLFOX which she finished on 09/13/2015. ? Surveillance CT scan the abdomen and pelvis on January 06, 2016 demonstrated a small omental nodules. He was treated with 4 cycles of FOLFIRI and then underwent exploratory laparotomy, excision of peritoneal/liver/small bowel/mesenteric nodules, heated intraperitoneal chemotherapy (HIPEC) administration for 100 minutes, cystoscopy with bilateral ureteral stent placement on 05/22/2016. His [place] prescription history shows recent MS Contin 15 mg every 12 hours #14, and [place] 5/325#28 both filled on 06/21/2018 at the time of his last hospital discharge. Prior to this, had only one prescription approximately one year ago for [place] #15. ? Pathology: 1. Small bowel peritoneal nodules, excision (A) - Organizing fibrous adhesions. - No evidence of malignancy. 2. Left liver nodule, biopsy (B) - Adenocarcinoma in liver, consistent with colonic primary. 3. Omentum, excision (C) - Infiltrating adenocarcinoma, consistent with colonic primary. 4. Left upper quadrant abdominal wall, biopsy (D) - Infiltrating adenocarcinoma, consistent with colonic primary. 5. Pelvic nodule and omentum, excision (E) - Infiltrating adenocarcinoma, consistent with colonic primary. - One lymph node, negative for malignancy (0/1). 6. Ileal nodule, excision (F) - Infiltrating adenocarcinoma, consistent with colonic primary. ? In end of July/first week of August this year he underwent repeat staging workup (CT and PET) which unfortunately showed liver metastasis and intra-abdominal metastases. ? He recently started back on chemotherapy with FOLFIRI and cetuximab. He's had 2 cycles to date. ? Previous therapy: 1) FOLFOX ?12 cycles completed 09/13/2015. 2) FOLFIRI x4 cycles. 3) Exploratory lap 04/2016 with HIPEC (mitomycin). ? Current therapy: 1) FOLFIRI (with Vectibix--side effects permitting). Current Facility-Administered Medications: acetaminophen 975 mg CUP (TYLENOL) 975 mg ORAL QID Lai (Res) Ramirez 975 mg at 07/01/18 0859 Or acetaminophen 975 mg tab(s) (TYLENOL) 975 mg ORAL QID Lai (Res) Ramirez 975 mg at 07/04/18 2230 bisacodyl 10 mg suppository (DULCOLAX) 10 mg RECTAL DAILY PRN Lai (Res) Ramirez enoxaparin 40 mg injection (LOVENOX) 40 mg SUBCUTANEOUS DAILY Esteban (Res) Gastaldo, DO 40 mg at 07/04/18 0916 heparin 100 unit/mL 200-500 Units injection 200-500 Units INTRAVENOUS PRN Trixie (Res) MD Jonny 500 Units at 07/04/18 0440 minocycline 100 mg cap(s) (MINOCIN, DYNACIN) 100 mg ORAL BID Lai (Res) Ramirez 100 mg at 07/04/18 0916 NaCl 0.9% 10 mL 10 mL INTRAVENOUS q 12 H Esteban (Res) Gastaldo, DO 10 mL at 07/04/18 2230 NaCl 0.9% 20 mL 20 mL INTRAVENOUS PRN Esteban (Res) Gastaldo, DO 20 mL at 07/04/18 0440 ondansetron 4 mg tab(s) (ZOFRAN) 4 mg ORAL q 6 H PRN Esteban (Res) Gastaldo, DO 4 mg at 07/05/18 0507 Or ondansetron (PF) 4 mg injection (ZOFRAN) 4 mg INTRAVENOUS q 6 H PRN Esteban (Res) Gastaldo, DO 4 mg at 07/04/18 0041 oxyCODONE IR 10 mg tab(s) (ROXICODONE) 10 mg ORAL q 3 H PRN Dion Carroll Bibi 10 mg at 07/01/18 0654 oxyCODONE IR 5 mg tab(s) (ROXICODONE) 5 mg ORAL q 3 H PRN Dion Carroll Bibi 5 mg at 07/05/[address] 40 mg tab(s) (PROTONIX) 40 mg ORAL DAILY (6 AM) Lai (Res) Ramirez 40 mg at 07/05/18 0508 Or pantoprazole 40 mg granules for suspension (PROTONIX) 40 mg ORAL DAILY (6 AM) Lai (Res) Ramirez polyethylene glycol 3350 17 g packet (MIRALAX, GLYCOLAX) 17 g ORAL DAILY PRN Lai (Res) Ramirez potassium chloride ER 40 mEq tab(s) (K-DUR, KLOR-CON) 40 mEq ORAL BID Esteban (Res) Gastaldo, DO 40 mEq at 07/04/18 2230 prochlorperazine 5 mg injection (COMPAZINE) 5 mg INTRAVENOUS q 6 H PRN Tripp Shaikh) Sher[place] 5 mg at 07/01/18 2105 senna-docusate 8.6-50 mg 1 tablet (SENNA-S) 1 tablet ORAL BID Lai (Res) Ramirez 1 tablet at 07/04/18 0916 Prescriptions Prior to Admission: XARELTO 20 mg tablet TAKE ONE TABLET BY MOUTH DAILY WITH DINNER. Disp: 30 tablet Rfl: 5 Past Week at Unknown time dexamethasone (DECADRON) 4 mg tablet TAKE ONE TABLET BY MOUTH TWICE DAILY (Patient not taking: Reported on 06/26/2018) Disp: 10 tablet Rfl: 5 Not Taking minocycline (MINOCIN, DYNACIN) 100 mg capsule Take 100 mg by mouth twice daily. Disp: Rfl: 3 Not Taking ondansetron (ZOFRAN) 8 mg tablet Take 1 tablet by mouth every 8 hours as needed for Nausea/Vomiting. (Patient not taking: Reported on 06/26/2018 ) Disp: 30 tablet Rfl: 2 Not Taking potassium chloride ER (K-DUR, KLOR-CON) 20 mEq tablet Take 1 tablet by mouth three times daily. (Patient taking differently: Take 40 mEq by mouth twice daily. ) Disp: 90 tablet Rfl: 2 promethazine (PHENERGAN) 25 mg tablet Take 1 tablet by mouth every 6 hours as needed. FOR NAUSEA (Patient not taking: Reported on 06/26/2018 ) Disp: 20 tablet Rfl: 2 Not Taking Social History Marital status: Spouse name: Years of education: Number of children: Social History Main Topics Smoking status: Former Smoker Packs/day: 0.50 Years: 10.00 Types: Cigarettes Quit date: 01/21/1990 Smokeless tobacco: Never Used Alcohol use: Yes Comment: beer once in awhile Drug use: No Other Topics Concern Caffeine Concern Yes Special Diet No Exercise No FAMILY HISTORY Problem Relation Age of Onset - Colon Cancer Paternal Grandfather 83 - Diabetes Sister PAST SURGICAL HISTORY Procedure Laterality Date - APPENDECTOMY at age 8 - LAP COLECTOMY, 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 with en bloc SB resection - PAST SURGICAL HISTORY OF 05/22/16 wedge liver bx, ileum wedge rsxn, omentectomy, debulking, HIPEC ROS: All of the following reviewed and negative except as noted below: GENERAL: no fever, chills, sweats, weight loss, fatigue, generalized weakness HEENT: no headache, vision changes, eye discomfort, hearing change, ear discomfort, sinus pain, nasal discharge or congestion, oral lesions, soreness, dental problem NECK: no adenopathy, discomfort, change in ROM CHEST: no shortness of breath, dyspnea on exertion, wheezing, cough, sputum production or chest pain HEART: no chest pain, palpitations, syncope ABDOMEN: no nausea, vomiting, constipation, diarrhea, abdominal pain : no dysuria, urgency, frequency, history of stones, incontinence NEURO: Tolerating oxycodone better without confusion. Was having some confusion and sedation with IV Dilaudid yesterday. EXTREMITIES: no new pain, edema, change in ROM HEME: no new adenopathy, bruises, petechiae PSYCH: no depression, anxiety, agitation PHYSICAL EXAMINATION: see below for new or abnormal findings BP 126/73 Pulse 93 Temp 36.5 ?C (97.7 ?F) Resp 18 Ht 185.4 cm (6' 1) Wt 78.2 kg (172 lb 8 oz) SpO2 99% BMI 22.76 kg/m? BMI 22.76 kg/(m2) GENERAL: well nourished and developed; no acute distress; alert and oriented x 3; intact judgement and insight HEENT: no evidence of trauma; cranial nerves intact; eyes clear EOMI; no hearing deficits apparent; nasal passages unremarkable; throat and mucous membranes clear NECK: supple without lymphadenopathy; no JVD; no thyromegaly CHEST: clear bilaterally to auscultation; normal chest movement; no rales or rhonchi HEART: regular rate and rhythm, normal S1 and S2, no murmurs, clicks, rubs, or gallops ABDOMEN: soft; nondistended; bowel sounds present; no hepatomegaly; no splenomegaly; mild tender +ALBERTA serosanguinous EXTREMITIES: no evidence of clubbing; no cyanosis; no deformity; no joint effusion; no edema NEURO: cranial nerves intact; no focal deficits; no confusion; no tremor; sensorium normal SKIN: no rash; no skin breakdown; no decubitus lesions HEME: no bruising; no adenopathy PSYCH: no evidence of depression; no anxiety; no agitation; no apparent hallucinations ABNORMAL/NEW FINDINGS: NONE CBC: Recent Labs 07/05/18 0515 WBC 10.80* RBC 2.73* HB 7.9* HCT 25.3* PLT 591* MCV 92.7 MCH 28.9 MPV 8.6* RDW 14.6* CMP: No results for input(s): NA, K, CHLOR, CO2, BUN, CREAT, GLUC, TPROT, CA, MG, ALBUMIN, TBILI, ALKPHOS, ALT, AST, ANION in the last 24 hours. Heme: No results for input(s): RETICP, ABSRETIC, LD, SARAH, FE, TIBC, TRANSFERSAT in the last 24 hours. 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 I reviewed the resident's note. I agree with the resident's assessment and plan with the following revisions and/or additions: al home Signature: Justin Dhillon MD Date: 07/05/2018 Time: 6:13 PM DISCHARGE SUMMARY PATIENT NAME: Becca Magana ADMISSION DATE: 06/26/2018 DISCHARGE DATE: 07/05/2018 ATTENDING PHYSICIAN: Justin Dhillon Code Status: Not on file Highest Readmission Risk Score: 23 The 30 day readmissions risk score is derived from an internally validated risk model which evaluates patient level characteristics, utilization history, medication orders and lab results up until the day of discharge. Patients with a score of 40 or above are considered highest risk for readmission. Specific patient level drivers will be listed at the bottom of the summary. REASON FOR HOSPITALIZATION: Carcinomatosis DIAGNOSIS: Principal Problem: Carcinomatosis (HCC) Resolved Problems: * No resolved hospital problems. * OPERATIONS DURING HOSPITALIZATION: Ex Lap, Resection of Abdominal Masses x3, SBRx3, Splenectomy, Diaphragm Repair, Left Chest tube, Abdominal Closure with Mesh PROCEDURES DURING HOSPITALIZATION: No procedures performed HOSPITAL COURSE: Debulking procedure for Carcinomatosis Post-op pain/nausea control ALBERTA Drain to bulb suction Prevena VAC Left Chest tube removed on POD 2 without complication PT/OT recs home Asplenia vaccines given prior to dc Transitions of Care Critical Issues: ALBERTA and Vac care, patient now Asplenic LABS AND PROCEDURES PENDING AT DISCHARGE: Pathology Results (pending) CONSULTING TEAMS DURING HOSPITALIZATION: Pain mgmt PATIENT CONDITION AT DISCHARGE: Stable DISCHARGE DISPOSITION: Home/Self Care INFORMATION PROVIDED TO PATIENT: (To pull info documented from the DC Instruct Orderset Complete O/S First): DIET: Resume pre-hospital diet ACTIVITY: Resume pre-hospital activity Lifting is restricted to: <15 lbs WOUND/SURGICAL SITE CARE: Wound/Surgical Site Care Leave open to air Other: Prevena wound vac WOUND CARE INSTRUCTIONS WOUND VAC ([place]) Freq: Ongoing Order Specific Question: Site: Answer: abdomen Order Specific Question: Target Pressure (MMHG): Answer: 125 Order Specific Question: Cycle: Answer: Continuous Order Specific Question: Change Canister / Dressing: Answer: Every 48 Hours DRESSING CARE (SPECIFY) ([place]) Freq: Daily Order Specific Question: Specify: Answer: please change Left chest tube dressing, covaderm or gauze/tape is fine Stitches Will absorb, or fall out by themselves, in a week or so ALLERGIES No Known Allergies DISCHARGE MEDICATION: Current Discharge Medication List START taking these medications acetaminophen (TYLENOL) 650 mg Take 650 mg by mouth every 4 hours as needed for Pain or Fever. oxyCODONE IR (ROXICODONE) 5-10 mg Take 5-10 mg by mouth every 4 hours as needed. Earliest Fill Date: 07/05/18 Qty: 30 tablet Refills: 0 Associated Diagnoses:Peritoneal carcinomatosis (HCC); Metastasis to liver (HCC); Malignant neoplasm of sigmoid colon (HCC) senna-docusate (SENNA-S) 1 tablet Take 1 tablet by mouth twice daily. Qty: 60 tablet Refills: 0 CONTINUE these medications which have CHANGED ondansetron (ZOFRAN) 4 mg Take 4 mg by mouth every 6 hours as needed for Nausea/Vomiting. Qty: 120 tablet Refills: 2 CONTINUE these medications which have NOT CHANGED XARELTO 20 mg tablet TAKE ONE TABLET BY MOUTH DAILY WITH DINNER. Qty: 30 tablet Refills: 5 Comments: This prescription was filled on 05/13/2018. Any refills authorized will be placed on file. minocycline (MINOCIN, DYNACIN) 100 mg Take 100 mg by mouth twice daily. Refills: 3 potassium chloride ER (K-DUR, KLOR-CON) 20 mEq Take 20 mEq by mouth three times daily. Qty: 90 tablet Refills: 2 Comments: This prescription was filled on 04/25/2018. Any refills authorized will be placed on file. promethazine (PHENERGAN) 25 mg Take 25 mg by mouth every 6 hours as needed. FOR NAUSEA Qty: 20 tablet Refills: 2 STOP taking these medications dexamethasone (DECADRON) 4 mg tablet Comments: Reason for Stopping: FUTURE APPOINTMENTS: Follow Up Appointments Follow-Up Appointment When: In 2 weeks Patient/Parents to call for appointment?: Yes Justin Dhillon [phone] [facility] [address] [facility] [id number] PCP Requested Referral The patient's risk for 30-day readmission is determined using the following contributing factors: Pt variables contributing to increased readmission risk: 22 Active Medication Orders 9 Most Recent BUN Result 8.3 First Resulted Calcium During Admission 1 Insurance - Private Coverage 1 Active Anticoagulant TIME OF CARE: Discharge Management: I personally spent less than 30 minutes involved in the discharge management of this patient. SIGNATURE: Lai Ramirez MD PAGER/CONTACT #: [phone] DATE: July 05, 2018 TIME: 7:05 AM PROGRESS Observed: 07/05/2018 Status: COMPLETED Source: [place] 6:25 AM [facility] REPOSITORY O ID: [id number] Author: Lai Ramirez Service: General Surgery Author Type: Resident Type: Progress Notes Filed: 07/05/2018 7:05 AM Note Text: Attestation signed by Justin Dhillon at 07/05/2018 6:09 PM Attending Note I personally saw and examined the patient. I reviewed the resident's note. I agree with the resident's assessment and plan with the following revisions and/or additions: doing better. Dc home today Signature: Justin Dhillon MD Date: 07/05/2018 Time: 6:09 PM Elective General Surgery Progress Note SERVICE DATE: 07/05/2018 Elective General Surgery Service Pager: For questions or concerns Mon-Sun 6a-5p please page [phone]. After 5pm and on Weekends and Holidays, please page [phone] if in ICU or [phone] if on RNF. SUBJECTIVE: Persistent Nausea and Poor PO --> Emesis yesterday after eating food from home Tolerating diet DIET GASTRO INTESTINAL Nausea Yes Emesis No Flatus Yes Bowel movement Yes Pain Controlled Yes Ambulating Yes OBJECTIVE: Vitals: Temp (24hrs), Av.8 ?C (98.2 ?F), Min:36.5 ?C (97.7 ?F), Max:37 ?C (98.6 ?F) BP 126/73 Pulse 93 Temp 36.5 ?C (97.7 ?F) Resp 18 Ht 185.4 cm (6' 1) Wt 78.2 kg (172 lb 8 oz) SpO2 99% BMI 22.76 kg/m? O2 Therapy: Room Air IANDO: Date 07/04/18 07 - 07/05/18 0659 07/05/18 07 - 07/06/18 0659 Shift 6387-5415 7330-6894 1540-1374 24 Hour Total 6577-7174 7057-1253 9201-4003 24 Hour Total I N T A K E PO 480 285 495 1267 PO 480 066 500 2047 Shift Total 480 992 340 0626 O U T P U T Urine 490 490 Void (ml) 490 490 Urine Not Saved. 4 x 1 x 5 x Emesis 450 450 Emesis (ml) 450 450 Tubes 40 15 15 70 Drain/Tube Output (Drain/Tube 06/28/18 1857 Assessment Michael Odonnell Right Abdomen Drain #1) 40 15 15 70 # of BMs Number of BMs 2 x 2 x Shift Total 490 15 505 1010 Weight (kg) 80.7 80.7 78.2 78.2 78.2 78.2 78.2 78.2 MEDICATIONS Current Facility-Administered Medications: acetaminophen 975 mg CUP (TYLENOL) 975 mg ORAL QID Or acetaminophen 975 mg tab(s) (TYLENOL) 975 mg ORAL QID bisacodyl 10 mg suppository (DULCOLAX) 10 mg RECTAL DAILY PRN enoxaparin 40 mg injection (LOVENOX) 40 mg SUBCUTANEOUS DAILY heparin 100 unit/mL 200-500 Units injection 200-500 Units INTRAVENOUS PRN minocycline 100 mg cap(s) (MINOCIN, DYNACIN) 100 mg ORAL BID NaCl 0.9% 10 mL 10 mL INTRAVENOUS q 12 H NaCl 0.9% 20 mL 20 mL INTRAVENOUS PRN ondansetron 4 mg tab(s) (ZOFRAN) 4 mg ORAL q 6 H PRN Or ondansetron (PF) 4 mg injection (ZOFRAN) 4 mg INTRAVENOUS q 6 H PRN oxyCODONE IR 10 mg tab(s) (ROXICODONE) 10 mg ORAL q 3 H PRN oxyCODONE IR 5 mg tab(s) (ROXICODONE) 5 mg ORAL q [address] 40 mg tab(s) (PROTONIX) 40 mg ORAL DAILY (6 AM) Or pantoprazole 40 mg granules for suspension (PROTONIX) 40 mg ORAL DAILY (6 AM) polyethylene glycol 3350 17 g packet (MIRALAX, GLYCOLAX) 17 g ORAL DAILY PRN potassium chloride ER 40 mEq tab(s) (K-DUR, KLOR-CON) 40 mEq ORAL BID prochlorperazine 5 mg injection (COMPAZINE) 5 mg INTRAVENOUS q 6 H PRN senna-docusate 8.6-50 mg 1 tablet (SENNA-S) 1 tablet ORAL BID Labs: Recent Labs 07/05/18 0515 07/04/18 0445 NA 136 138 K 4.1 3.7 CHLOR 103 104 CO2 24 25 BUN 9 9 CREAT 0.81 0.79 GLUC 68* 80 ANION 13 13 CA 8.3* 7.9* WBC 10.80* 10.77* HB 7.9* 8.1* HCT 25.3* 25.4* PLT 591* 556* Exam: GENERAL: No distress, Alert NEURO: AANDOx3, CN II-XII grossly intact HEENT: normocephalic, atraumatic LUNGS: Unlabored breathing CARDIAC: Regular rate and rhythm as above ABDOMEN: Soft, ND, minimally TTP, Prevena intact, ALBERTA serosang, G-D Tube intact EXTREMITIES: HEDRICK, No deformities, + edema SKIN: Skin color, texture, turgor normal, No rashes or lesions ASSESSMENT AND PLAN: Active Hospital Problems Diagnosis Date Noted - Carcinomatosis (HCC) 06/26/2018 Overview Note: Added automatically from request for surgery [id number] 62 year old male with Metastatic Sigmoid Colon cancer and Carcinomatosis s/p Sigmoidectomy, Wedge Liver Rxn, SBR, Omentectomy, Debulking, and HIPEC in 2014 and 2016 ? - Soft GI - Clamp G tube - pain ctl per pain mgmt - ALBERTA to bulb sxn - Prevena - ambulate - Leukocytosis without SIRS resolved, Asplenic - monitor - acute blood loss anemia on chronic anemia - stable, monitor - IS - PT/OT recs home - Asplenia vaccines today - dispo planning - poss home today SIGNATURE: Lai Ramirez MD PATIENT NAME: Becca Magana DATE: July 05, 2018 TIME: 6:25 AM Pager: Elective General Surgery Service Pager: For questions or concerns Mon-Fri 6a-5p please page [phone]. After 5pm and on Weekends and Holidays, please page [phone] if in ICU or [phone] if on RNF. MDRD GFR Collected: 07/05/2018 Status: F Source: [facility] 5:15 AM HEALTH SYSTEM REPOSITORY TYPE CODE TESTS RESULT OUT OF RANGE REFERENCE UNITS LAB GFRFN(LOINC >60mL/min/1.73m ) 2 eGFR >60 Result Comment: If the patient is , multiply the result by 1.210. Performed By: #### GFR #### [place] [address] HEMOGRAM/DIFF Collected: 07/05/2018 Status: F Source: [facility] 5:15 AM HEALTH SYSTEM REPOSITORY TYPE CODE TESTS RESULT OUT OF REFERENCE UNITS RANGE LAB WBC(LOINC) 4.23-9.07 thou/cmm WBC High 10.80 LAB RBC(LOINC) 4.63-6.08 mil/cmm Low RBC 2.73 LAB HGB(LOINC) 13.7-17.5 g/dL Low Hgb 7.9 LAB HCT(LOINC) 40.1-51.0 % Low Hct 25.3 LAB MCV(LOINC) 83.2-95.6 fl MCV 92.7 LAB MCH(LOINC) 25.7-32.2 pg MCH 28.9 LAB MCHC(LOINC 32.3-36.5 % ) Low MCHC 31.2 LAB RDW(LOINC) 11.6-14.4 % RDW High 14.6 LAB RDWSD(LOIN 36.1-45.8 fl C) RDW SD High 49.9 LAB PLT(LOINC) 141-365 thou/cmm Platelet High 591 LAB MPV(LOINC) 8.7-12.0 fl Low MPV 8.6 LAB NRBCR(LOIN 0.0-0.2 % C) Nucleated RBC % 0.2 LAB NRBCA(LOIN 0.00-0.01 thou/cmm C) High Nucleated RBC 0.02 Absolute LAB SEG(LOINC) % Seg Neutrophil 63.3 LAB IGRE(LOINC % ) Immature Grans 1.70 LAB LYMPH(LOIN % C) Lymphocyte 12.7 LAB MNO(LOINC) % Monocyte 16.3 LAB EOSIN(LOIN % C) Eosinophil 5.4 LAB BASO(LOINC % ) Basophil 0.6 LAB SEGN(LOINC 1.78-5.38 thou/cmm ) Abs. High Neut (ANC) 6.84 LAB IGAB(LOINC 0.00-0.05 thou/cmm ) Abs High Immature Grans 0.18 LAB LYMN(LOINC 0.84-2.85 thou/cmm ) Abs. Lymph 1.37 LAB MONON(LOIN 0.30-0.82 thou/cmm C) Abs. High [place] 1.76 LAB EOSN(LOINC 0.04-0.54 thou/cmm ) Abs. High Eosin 0.58 LAB BASON(LOIN 0.01-0.08 thou/cmm C) Abs. Baso 0.06 Performed By: #### [id number] #### [place] [address] BASIC PANEL Collected: 07/05/2018 Status: F Source: [facility] 5:15 AM HEALTH SYSTEM REPOSITORY TYPE CODE TESTS RESULT OUT OF REFERENCE UNITS RANGE LAB NA(LOINC) 136-145 mEq/L Sodium Blood 136 LAB K(LOINC) 3.5-5.1 mEq/L Potassium Blood 4.1 LAB CL(LOINC) 98-107 mEq/L Chloride Blood 103 LAB CO2(LOINC) 21-32 mEq/L CO2 Blood 24 LAB GLU(LOINC) 70-99 mg/dL Low Glucose Blood 68 LAB BUN(LOINC) 7-18 mg/dL BUN Blood 9 LAB CREA(LOINC 0.67-1.17 mg/dL ) Creatinine Blood 0.81 LAB CA(LOINC) 8.5-10.1 mg/dL Low Calcium Blood 8.3 LAB ANGAP(LOIN 8-16 C) Anion Gap 13 Performed By: #### P8 #### [place] [address] NURSING PROG Observed: 07/05/2018 Status: COMPLETED Source: [place] 4:29 AM CLINIC OTHER CAMPUS REPOSITORY HNO ID: [id number] Author: Daria HernándezRn) DENAE Freed Service: (none) Author Type: Registered Nurse Type: Nursing Progress Note Filed: 07/05/2018 4:38 AM Note Text: Nursing Progress Note Patient Name: Becca Magana Patient Location: [id number] Event(s) / Intervention Note: At 1930 07/04 RN noticed pt's LUE was bigger in size compared to the RUE. RN flushed Port on LUE and had positive blood return, pt denied N/T, and extremity was warm to touch. RN elevated extremity and continued to monitor. Upon assessment at 0400 RN noticed no decrease in pt's LUE. RN notified Dr. Culver. RN was instructed to get morning labs and notify Dr. Culver if any complications occur. RN will continue to monitor. This note was completed by: Daria Freed RN PROGRESS Observed: 07/04/2018 Status: COMPLETED Source: [place] 9:05 AM CLINIC OTHER CAMPUS REPOSITORY HNO ID: [id number] Author: July Borrego Service: Pain Management Author Type: Physician Type: Progress Notes Filed: 07/04/2018 9:06 AM Note Text: BECCA MAGANA 62 year old PAIN CONSULTATION: Abdominal pain, colon cancer Pain Description: pain scores down 2-3; overall improving dull ache lower abdomen Interval HPI: 12 Surgery- clamp G tube; ALBERTA to bulb sxn, added Toradol 06/29 Pain currently 10/10 in severity, improves to perhaps 8/10 at its best, inadequately relieved, Sharp/aching, aggravated by any movement, palpation. Subjective HPI: 62-year-old male, status post surgery and 06/28/2018 at which time he underwent resection of abdominal wall masses ?3, SBR ?3 with 1 anastomosis, splenectomy, repair of diaphragmatic defect, insertion of left chest tube, gastric duodenostomy tube placement, bilateral myocutaneous flaps, placement of retrocrural mass, with findings of masses of anterior and right lateral abdominal wall, splenic lesions with diaphragmatic extension, now resected. He had presented to [facility] Emergency department on 06/20 with progressive nonradiating periumbilical pain, with findings of concern for bowel obstruction that was managed conservatively. He was seen by Dr. Dhillon on the day of admission who have directly admitted secondary to persistent and worsening abdominal pain, and sought mechanical cause of partial small bowel obstruction. At presentation, he was able to eat, was having bowel movements without bleeding, no nausea, emesis, and also denied pulmonary, and complaints. This patient has an extensive history of metastatic colon carcinoma. He is followed by Dr. Stone in [place] who summarizes his history with his malignancy as follows: 1) Metastatic recurrence of stage III colon cancer. MSI stable. BRAF - A sequence change: [id number] ([id number]) was detected at approximately 48% allele proportion. [Reference sequence: ([id number])]. KRAS - No variant detected [Reference?sequence: ([id number])]. NRAS - No variant detected [Reference sequence: ([id number])]. ? Patient referred by ongoing management of metastatic colon cancer. ? HPI: The patient is a 62 yo male who developed abdominal pain around June 2014. His symptoms progressively worsened throughout the spring. He also began losing weight in the spring and this culminated in a hospitalization for what was thought to be diverticulitis in December 2014. He underwent a CT scan which was thought to demonstrated a left lower quadrant abscess. The drain was placed and he was treated with antibiotic treatment. Pain flared and a repeat CT scan on 01/24/15 demonstrated marked inflammatory phlegmonous changes of the proximal sigmoid colon. He therefore underwent a colonoscopy and sigmoid colon resection with lymph node dissection on 01/29/2015. The sigmoid colon was noted to be adherent to the anterior abdominal wall and small bowel. The final pathology demonstrated an invasive moderately differentiated adenocarcinoma, tumor extension through the colonic wall and involving the muscularis propria of the small bowel. The proximal margin resection had a small focus of tumor present at the serosal surface. None of 25 lymph nodes were involved. The patient went on to receive 12 cycles FOLFOX which she finished on 09/13/2015. ? Surveillance CT scan the abdomen and pelvis on January 06, 2016 demonstrated a small omental nodules. He was treated with 4 cycles of FOLFIRI and then underwent exploratory laparotomy, excision of peritoneal/liver/small bowel/mesenteric nodules, heated intraperitoneal chemotherapy (HIPEC) administration for 100 minutes, cystoscopy with bilateral ureteral stent placement on 05/22/2016. His [place] prescription history shows recent MS Contin 15 mg every 12 hours #14, and [place] 5/325#28 both filled on 06/21/2018 at the time of his last hospital discharge. Prior to this, had only one prescription approximately one year ago for [place] #15. ? Pathology: 1. Small bowel peritoneal nodules, excision (A) - Organizing fibrous adhesions. - No evidence of malignancy. 2. Left liver nodule, biopsy (B) - Adenocarcinoma in liver, consistent with colonic primary. 3. Omentum, excision (C) - Infiltrating adenocarcinoma, consistent with colonic primary. 4. Left upper quadrant abdominal wall, biopsy (D) - Infiltrating adenocarcinoma, consistent with colonic primary. 5. Pelvic nodule and omentum, excision (E) - Infiltrating adenocarcinoma, consistent with colonic primary. - One lymph node, negative for malignancy (0/1). 6. Ileal nodule, excision (F) - Infiltrating adenocarcinoma, consistent with colonic primary. ? In end of July/first week of August this year he underwent repeat staging workup (CT and PET) which unfortunately showed liver metastasis and intra-abdominal metastases. ? He recently started back on chemotherapy with FOLFIRI and cetuximab. He's had 2 cycles to date. ? Previous therapy: 1) FOLFOX ?12 cycles completed 09/13/2015. 2) FOLFIRI x4 cycles. 3) Exploratory lap 04/2016 with HIPEC (mitomycin). ? Current therapy: 1) FOLFIRI (with Vectibix--side effects permitting). Current Facility-Administered Medications: acetaminophen 975 mg CUP (TYLENOL) 975 mg ORAL QID Lai (Res) Ramirez 975 mg at 07/01/18 0859 Or acetaminophen 975 mg tab(s) (TYLENOL) 975 mg ORAL QID Lai (Res) Ramirez 975 mg at 07/02/18 0936 bisacodyl 10 mg suppository (DULCOLAX) 10 mg RECTAL DAILY PRN Lai (Res) Ramirez enoxaparin 40 mg injection (LOVENOX) 40 mg SUBCUTANEOUS DAILY Esteban (Res) Gastaldo, DO 40 mg at 07/03/18 0850 heparin 100 unit/mL 200-500 Units injection 200-500 Units INTRAVENOUS PRN Trixie (Res) MD Jonny 500 Units at 07/04/18 0440 HYDROmorphone HCl 1 mg injection (DILAUDID) 1 mg INTRAVENOUS q 3 H PRN Dion Carroll Bibi 1 mg at 07/01/18 2150 ketorolac 15 mg injection (TORADOL) 15 mg INTRAVENOUS q 6 H Tripp (Res) Sheridan 15 mg at 07/04/18 0440 minocycline 100 mg cap(s) (MINOCIN, DYNACIN) 100 mg ORAL BID Lai (Res) Ramirez 100 mg at 07/03/18 0850 NaCl 0.9% 10 mL 10 mL INTRAVENOUS q 12 H Esteban (Res) Caroaldo, DO 10 mL at 07/03/18 1954 NaCl 0.9% 20 mL 20 mL INTRAVENOUS PRN Esteban (Res) Caroaldo, DO 20 mL at 07/04/18 0440 ondansetron 4 mg tab(s) (ZOFRAN) 4 mg ORAL q 6 H PRN Esteban (Res) Gastaldo, DO Or ondansetron (PF) 4 mg injection (ZOFRAN) 4 mg INTRAVENOUS q 6 H PRN Esteban (Res) Gastaldo, DO 4 mg at 07/04/18 0041 oxyCODONE IR 10 mg tab(s) (ROXICODONE) 10 mg ORAL q 3 H PRN Dion Carroll Bibi 10 mg at 07/01/18 0654 oxyCODONE IR 5 mg tab(s) (ROXICODONE) 5 mg ORAL q 3 H PRN Dion Carroll Bibi pantoprazole DR 40 mg tab(s) (PROTONIX) 40 mg ORAL DAILY (6 AM) Lai (Res) Ramirez 40 mg at 07/04/18 0440 Or pantoprazole 40 mg granules for suspension (PROTONIX) 40 mg ORAL DAILY (6 AM) Lai (Res) Ramirez polyethylene glycol 3350 17 g packet (MIRALAX, GLYCOLAX) 17 g ORAL DAILY PRN Lai (Res) Ramirez potassium chloride ER 40 mEq tab(s) (K-DUR, KLOR-CON) 40 mEq ORAL BID Esteban (Res) Gastaldo, DO 40 mEq at 07/03/18 0851 prochlorperazine 5 mg injection (COMPAZINE) 5 mg INTRAVENOUS q 6 H PRN Tripp (Res) Sheridan 5 mg at 07/01/18 2105 senna-docusate 8.6-50 mg 1 tablet (SENNA-S) 1 tablet ORAL BID Lai (Res) Ramirez 1 tablet at 07/03/18 0850 Prescriptions Prior to Admission: XARELTO 20 mg tablet TAKE ONE TABLET BY MOUTH DAILY WITH DINNER. Disp: 30 tablet Rfl: 5 Past Week at Unknown time dexamethasone (DECADRON) 4 mg tablet TAKE ONE TABLET BY MOUTH TWICE DAILY (Patient not taking: Reported on 06/26/2018) Disp: 10 tablet Rfl: 5 Not Taking minocycline (MINOCIN, DYNACIN) 100 mg capsule Take 100 mg by mouth twice daily. Disp: Rfl: 3 Not Taking ondansetron (ZOFRAN) 8 mg tablet Take 1 tablet by mouth every 8 hours as needed for Nausea/Vomiting. (Patient not taking: Reported on 06/26/2018 ) Disp: 30 tablet Rfl: 2 Not Taking potassium chloride ER (K-DUR, KLOR-CON) 20 mEq tablet Take 1 tablet by mouth three times daily. (Patient taking differently: Take 40 mEq by mouth twice daily. ) Disp: 90 tablet Rfl: 2 promethazine (PHENERGAN) 25 mg tablet Take 1 tablet by mouth every 6 hours as needed. FOR NAUSEA (Patient not taking: Reported on 06/26/2018 ) Disp: 20 tablet Rfl: 2 Not Taking Social History Marital status: Spouse name: Years of education: Number of children: Social History Main Topics Smoking status: Former Smoker Packs/day: 0.50 Years: 10.00 Types: Cigarettes Quit date: 01/21/1990 Smokeless tobacco: Never Used Alcohol use: Yes Comment: beer once in awhile Drug use: No Other Topics Concern Caffeine Concern Yes Special Diet No Exercise No FAMILY HISTORY Problem Relation Age of Onset - Colon Cancer Paternal Grandfather 83 - Diabetes Sister PAST SURGICAL HISTORY Procedure Laterality Date - APPENDECTOMY at age 8 - LAP COLECTOMY, 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 with en bloc SB resection - PAST SURGICAL HISTORY OF 05/22/16 wedge liver bx, ileum wedge rsxn, omentectomy, debulking, HIPEC ROS: All of the following reviewed and negative except as noted below: GENERAL: no fever, chills, sweats, weight loss, fatigue, generalized weakness HEENT: no headache, vision changes, eye discomfort, hearing change, ear discomfort, sinus pain, nasal discharge or congestion, oral lesions, soreness, dental problem NECK: no adenopathy, discomfort, change in ROM CHEST: no shortness of breath, dyspnea on exertion, wheezing, cough, sputum production or chest pain HEART: no chest pain, palpitations, syncope ABDOMEN: no nausea, vomiting, constipation, diarrhea, abdominal pain : no dysuria, urgency, frequency, history of stones, incontinence NEURO: Tolerating oxycodone better without confusion. Was having some confusion and sedation with IV Dilaudid yesterday. EXTREMITIES: no new pain, edema, change in ROM HEME: no new adenopathy, bruises, petechiae PSYCH: no depression, anxiety, agitation PHYSICAL EXAMINATION: see below for new or abnormal findings BP 124/79 Pulse 85 Temp 36.7 ?C (98.1 ?F) (Oral) Resp 18 Ht 185.4 cm (6' 1) Wt 80.7 kg (178 lb) SpO2 96% BMI 23.48 kg/m? BMI 23.48 kg/(m2) GENERAL: well nourished and developed; no acute distress; alert and oriented x 3; intact judgement and insight HEENT: no evidence of trauma; cranial nerves intact; eyes clear EOMI; no hearing deficits apparent; nasal passages unremarkable; throat and mucous membranes clear NECK: supple without lymphadenopathy; no JVD; no thyromegaly CHEST: clear bilaterally to auscultation; normal chest movement; no rales or rhonchi HEART: regular rate and rhythm, normal S1 and S2, no murmurs, clicks, rubs, or gallops ABDOMEN: soft; nondistended; bowel sounds present; no hepatomegaly; no splenomegaly; mild tender +ALBERTA serosanguinous EXTREMITIES: no evidence of clubbing; no cyanosis; no deformity; no joint effusion; no edema NEURO: cranial nerves intact; no focal deficits; no confusion; no tremor; sensorium normal SKIN: no rash; no skin breakdown; no decubitus lesions HEME: no bruising; no adenopathy PSYCH: no evidence of depression; no anxiety; no agitation; no apparent hallucinations ABNORMAL/NEW FINDINGS: NONE CBC: Recent Labs 07/04/18 0445 WBC 10.77* RBC 2.76* HB 8.1* HCT 25.4* PLT 556* MCV 92.0 MCH 29.3 MPV 9.3 RDW 14.6* CMP: No results for input(s): NA, K, CHLOR, CO2, BUN, CREAT, GLUC, TPROT, CA, MG, ALBUMIN, TBILI, ALKPHOS, ALT, AST, ANION in the last 24 hours. Heme: No results for input(s): RETICP, ABSRETIC, LD, SARAH, FE, TIBC, TRANSFERSAT in the last 24 hours. 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) Carcinomatosis (Hcc) OARRS: 06/21/18 MSContin 15mg #14 Dr Trinh 06/21/18 [place] 5/325 #28 Pain Regimen Use/Notes (Opiate use last 24 hrs): Acetaminophen 975 mg qid?x one Dilaudid 1mg IV q3h prn x none Toradol 15mg IV q6h x 5 doses Oxycodone 5-10mg q3h prn x none PLAN: Pt remains hesitant to take pain meds; does get pain relief with Toradol- continue for now Discontinue Dilaudid IV Coninue Oxycodone 5mg po q3h prn moderate pain, 10mg q3h prn severe pain FI[employer]IEF using MSContin 15mg BID AND [place]-no longer taking, pt was trying to get off opiates FI[employer] CHIEF Increase activity as tolerated; appreciate PT input Goal home at discharge- hopefully tomorrow. Son coming today for care instructions July Borrego MD PROGRESS Observed: 07/04/2018 Status: COMPLETED Source: [place] 6:29 AM CLINIC OTHER CAMPUS REPOSITORY HNO ID: [id number] Author: Lai Ramirez Service: General Surgery Author Type: Resident Type: Progress Notes Filed: 07/04/2018 7:09 AM Note Text: Attestation signed by Justin Dhillon at 07/04/2018 6:10 PM Attending Note I personally saw and examined the patient. I reviewed the resident's note. I agree with the resident's assessment and plan with the following revisions and/or additions: Will dc home tomorrow Signature: Justin Dhillon MD Date: 07/04/2018 Time: 6:10 PM Elective General Surgery Progress Note SERVICE DATE: 07/04/2018 Elective General Surgery Service Pager: For questions or concerns Mon-Fri 6a-5p please page [phone]. After 5pm and on Weekends and Holidays, please page [phone] if in ICU or [phone] if on RNF. SUBJECTIVE: Persistent nausea, poor appetite, and pain Tolerating diet DIET GASTRO INTESTINAL Nausea Yes Emesis No Flatus Yes Bowel movement Yes Pain Controlled Yes Ambulating Yes OBJECTIVE: Vitals: Temp (24hrs), Av.7 ?C (98.1 ?F), Min:36 ?C (96.8 ?F), Max:37.1 ?C (98.8 ?F) BP 124/79 Pulse 85 Temp 36.7 ?C (98.1 ?F) (Oral) Resp 18 Ht 185.4 cm (6' 1) Wt 80.7 kg (178 lb) SpO2 96% BMI 23.48 kg/m? O2 Therapy: Room Air IANDO: Date 07/03/18699 - 07/04/1865807/04/18699 - 07/05/1859 Shift 9699-8302 8574-7028 6878-7703 24 Hour Total 7872-0375 8200-2839 7460-1326 24 Hour Total I N T A K E PO 550 204 481 4088 PO 550 467 600 7800 Shift Total 550 760 503 9616 O U T P U T Urine 400 400 Void (ml) 400 400 Urine Not Saved. 3 x 1 x 2 x 6 x Tubes 40 30 40 110 Drain/Tube Output (Drain/Tube 06/28/18 1857 Assessment Michael Odonnell Right Abdomen Drain #1) 40 30 40 110 # of BMs Number of BMs 1 x 2 x 3 x Shift Total 40 30 440 510 Weight (kg) 85 85 80.7 80.7 80.7 80.7 80.7 80.7 MEDICATIONS Current Facility-Administered Medications: acetaminophen 975 mg CUP (TYLENOL) 975 mg ORAL QID Or acetaminophen 975 mg tab(s) (TYLENOL) 975 mg ORAL QID bisacodyl 10 mg suppository (DULCOLAX) 10 mg RECTAL DAILY PRN enoxaparin 40 mg injection (LOVENOX) 40 mg SUBCUTANEOUS DAILY heparin 100 unit/mL 200-500 Units injection 200-500 Units INTRAVENOUS PRN HYDROmorphone HCl 1 mg injection (DILAUDID) 1 mg INTRAVENOUS q 3 H PRN ketorolac 15 mg injection (TORADOL) 15 mg INTRAVENOUS q 6 H minocycline 100 mg cap(s) (MINOCIN, DYNACIN) 100 mg ORAL BID NaCl 0.9% 10 mL 10 mL INTRAVENOUS q 12 H NaCl 0.9% 20 mL 20 mL INTRAVENOUS PRN ondansetron 4 mg tab(s) (ZOFRAN) 4 mg ORAL q 6 H PRN Or ondansetron (PF) 4 mg injection (ZOFRAN) 4 mg INTRAVENOUS q 6 H PRN oxyCODONE IR 10 mg tab(s) (ROXICODONE) 10 mg ORAL q 3 H PRN oxyCODONE IR 5 mg tab(s) (ROXICODONE) 5 mg ORAL q [address] 40 mg tab(s) (PROTONIX) 40 mg ORAL DAILY (6 AM) Or pantoprazole 40 mg granules for suspension (PROTONIX) 40 mg ORAL DAILY (6 AM) polyethylene glycol 3350 17 g packet (MIRALAX, GLYCOLAX) 17 g ORAL DAILY PRN potassium chloride ER 40 mEq tab(s) (K-DUR, KLOR-CON) 40 mEq ORAL BID prochlorperazine 5 mg injection (COMPAZINE) 5 mg INTRAVENOUS q 6 H PRN senna-docusate 8.6-50 mg 1 tablet (SENNA-S) 1 tablet ORAL BID Labs: Recent Labs 12/13/18 0445 07/03/18 0435 07/02/18 0445 NA -- 139 138 K -- 3.9 3.8 CHLOR -- 105 106 CO2 -- 25 25 BUN -- 13 13 CREAT -- 0.80 0.91 GLUC -- 76 78 ANION -- 13 11 CA -- 8.0* 7.7* WBC 10.77* 10.88* 12.77* HB 8.1* 8.0* 9.0* HCT 25.4* 25.4* 28.0* PLT 556* 474* 409* Exam: GENERAL: No distress, Alert NEURO: AANDOx3, CN II-XII grossly intact HEENT: normocephalic, atraumatic LUNGS: Unlabored breathing CARDIAC: Regular rate and rhythm as above ABDOMEN: Soft, ND, minimally TTP, Prevena intact, ALBERTA serosang, G-D Tube intact EXTREMITIES: HEDRICK, No deformities, + edema SKIN: Skin color, texture, turgor normal, No rashes or lesions ASSESSMENT AND PLAN: Active Hospital Problems Diagnosis Date Noted - Carcinomatosis (HCC) 06/26/2018 Overview Note: Added automatically from request for surgery [id number] 62 year old male with Metastatic Sigmoid Colon cancer and Carcinomatosis s/p Sigmoidectomy, Wedge Liver Rxn, SBR, Omentectomy, Debulking, and HIPEC in 2014 and 2015 ? - Soft GI - Clamp G tube - pain ctl per pain mgmt - ALBERTA to bulb sxn - Prevena - ambulate - Leukocytosis without SIRS resolved, Asplenic - acute blood loss anemia on chronic anemia - stable, monitor - IS - PT/OT recs home - will need Asplenia vaccines prior to dc - dispo planning - patient doesn't feel ready for home quite yet, possibly by Sunday SIGNATURE: Lai Ramirez MD PATIENT NAME: Becca Magana DATE: July 04, 2018 TIME: 6:29 AM Pager: Elective General Surgery Service Pager: For questions or concerns Mon-Fri 6a-5p please page [phone]. After 5pm and on Weekends and Holidays, please page [phone] if in ICU or [phone] if on RNF. HEMOGRAM/DIFF Collected: 07/04/2018 Status: F Source: [facility] 4:45 AM [facility]ALTH SYSTEM REPOSITORY TYPE CODE TESTS RESULT OUT OF REFERENCE UNITS RANGE LAB WBC(LOINC) 4.23-9.07 thou/cmm WBC High 10.77 LAB RBC(LOINC) 4.63-6.08 mil/cmm Low RBC 2.76 LAB HGB(LOINC) 13.7-17.5 g/dL Low Hgb 8.1 LAB HCT(LOINC) 40.1-51.0 % Low Hct 25.4 LAB MCV(LOINC) 83.2-95.6 fl MCV 92.0 LAB MCH(LOINC) 25.7-32.2 pg MCH 29.3 LAB MCHC(LOINC 32.3-36.5 % ) Low MCHC 31.9 LAB RDW(LOINC) 11.6-14.4 % RDW High 14.6 LAB RDWSD(LOIN 36.1-45.8 fl C) RDW SD High 49.8 LAB PLT(LOINC) 141-365 thou/cmm Platelet High 556 LAB MPV(LOINC) 8.7-12.0 fl MPV 9.3 LAB SEG(LOINC) % Seg Neutrophil 71.8 LAB IGRE(LOINC % ) Immature Grans 1.50 LAB LYMPH(LOIN % C) Lymphocyte 10.1 LAB MNO(LOINC) % Monocyte 12.9 LAB EOSIN(LOIN % C) Eosinophil 3.2 LAB BASO(LOINC % ) Basophil 0.5 LAB SEGN(LOINC 1.78-5.38 thou/cmm ) Abs. High Neut (ANC) 7.73 LAB IGAB(LOINC 0.00-0.05 thou/cmm ) Abs High Immature Grans 0.16 LAB LYMN(LOINC 0.84-2.85 thou/cmm ) Abs. Lymph 1.09 LAB MONON(LOIN 0.30-0.82 thou/cmm C) Abs. High [place] 1.39 LAB EOSN(LOINC 0.04-0.54 thou/cmm ) Abs. Eosin 0.34 LAB BASON(LOIN 0.01-0.08 thou/cmm C) Abs. Baso 0.05 Performed By: #### [id number] #### [address] [address] BASIC PANEL Collected: 07/04/2018 Status: F Source: [facility] 4:45 AM HEALTH SYSTEM REPOSITORY TYPE CODE TESTS RESULT OUT OF REFERENCE UNITS RANGE LAB NA(LOINC) 136-145 mEq/L Sodium Blood 138 LAB K(LOINC) 3.5-5.1 mEq/L Potassium Blood 3.7 LAB CL(LOINC) 98-107 mEq/L Chloride Blood 104 LAB CO2(LOINC) 21-32 mEq/L CO2 Blood 25 LAB GLU(LOINC) 70-99 mg/dL Glucose Blood 80 LAB BUN(LOINC) 7-18 mg/dL BUN Blood 9 LAB CREA(LOINC 0.67-1.17 mg/dL ) Creatinine Blood 0.79 LAB CA(LOINC) 8.5-10.1 mg/dL Low Calcium Blood 7.9 LAB ANGAP(LOIN 8-16 C) Anion Gap 13 Performed By: #### P8 #### [facility] [address] [address] NUTRITION Observed: 07/03/2018 Status: COMPLETED Source: [place] 3:26 PM CLINIC OTHER CAMPUS REPOSITORY HNO ID: [id number] Author: Mira Knowles) DONNELL Livingston Service: Nutrition Therapy Author Type: Registered Dietitian Type: Nutrition Filed: 07/03/2018 3:31 PM Note Text: NUTRITION THERAPY PROGRESS NOTE SERVICE DATE: 07/03/2018 SERVICE TIME: 1130am RECOMMENDED DIAGNOSIS: UNABLE TO IDENTIFY MALNUTRITION AT THIS TIME per Registered Dietitian on 06/28/18 Pt decline physical assessment NUTRITION CARE PLAN Problem, Etiology and Signs/Symptoms: Increased nutrient needs (protein/kcal)?related to elevated metabolic demand?as evidenced by history of cancer with suspicion of lung mets. ? Intervention: 1. Continue to monitor and encourage PO intake 2. Discussed ways to avoid nausea with food 3. Encouraged supplement intake Coordination of Care: d/w RN Monitor and Evaluation: Goal: Meet >75% of estimated needs Discharge Nutrition Recommendations: Diet: GI soft with supplements as needed Reason for consult: Follow-up Per HPI: 62 year old M with a PMHx colon cancer status post sigmoidectomy in January 2015. At the time, tumor extended into?to the abdominal wall involving the muscularis propria of the small bowel. Patient underwent chemotherapy with FOLFOX finished in August 2015. CT scan in January 2016 showed?small peritoneal omental metastases. Patient underwent additional chemotherapy with FOLFIRI, exploratory laparotomy and further resection of residual tumor with HIPEC intraperitoneal chemotherapy (mitomycin C) and bilateral ureteral stent placement on May 22, 2016. Remained free of disease until August 2017. Repeat CT scan showed liver metastasis along with intra-abdominal metastasis. He started on chemotherapy FOLFIRI with cetuximab since spring 2017. His last cycle of chemotherapy was 3?weeks ago. He presented to [facility] ED on 06/20 with progressively worsening severe nonradiating vance-umbilical pain, concern for bowel obstruction, was managed conservatively and subsequently ?discharged. ? 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 Pt still c/o nausea. +BM. Not trying very hard to eat. Nutritional Intake: Nutritional Intake Prior to Admission: <50% estimated energy need over the past couple day(s) Nauseated with food odors and has excuses as to why he is not drinking the supplements, but states he does not dislike them. Current Diet Order DIET GASTRO INTESTINAL Order Specific Question: Gastro Intestinal Answer: GI SOFT-FIBER CONTROLLED Supplement 1 Frequency: 7. BREAKFAST, LUNCH, DINNER Supplement 2 Frequency: 3. LUNCH Supplement 3 Frequency: 5. DINNER Supplement 1: ENSURE CLEAR APPLE Supplement 2: ENSURE ENLIVE CHOCOLATE Supplement 3: ENSURE ENLIVE STRAWBERRY There are no questions and answers to display. There are no questions and answers to display. Lines and Drains: Implanted Vascular Access Device Single Port 06/30/18 1106 Left (Active) Peripheral 06/28/18 1330 Assessment Right Wrist 18 Gauge (Active) GI Feed/Drain 06/28/18 1806 Assessment Gastrostomy Left Abdomen (Active) Drain/Tube 06/28/18 1857 Assessment Michael Odonnell Right Abdomen Drain #1 (Active) Height: 185.4 cm (6' 1) Admission Weight: 86.6 kg (190 lb 15.8 oz) Current Weight: 85 kg (187 lb 4.8 oz) Body mass index is 24.71 kg/m?. normal Recent Labs 07/03/18 0435 GLUC 76 BUN 13 CREAT 0.80 NA 139 K 3.9 CHLOR 105 CO2 25 HB 8.0* HCT 25.4* WBC 10.88* Current Facility-Administered Medications: acetaminophen 975 mg CUP (TYLENOL) 975 mg ORAL QID Or acetaminophen 975 mg tab(s) (TYLENOL) 975 mg ORAL QID bisacodyl 10 mg suppository (DULCOLAX) 10 mg RECTAL DAILY PRN enoxaparin 40 mg injection (LOVENOX) 40 mg SUBCUTANEOUS DAILY heparin 100 unit/mL 200-500 Units injection 200-500 Units INTRAVENOUS PRN HYDROmorphone HCl 1 mg injection (DILAUDID) 1 mg INTRAVENOUS q 3 H PRN ketorolac 15 mg injection (TORADOL) 15 mg INTRAVENOUS q 6 H minocycline 100 mg cap(s) (MINOCIN, DYNACIN) 100 mg ORAL BID NaCl 0.9% 10 mL 10 mL INTRAVENOUS q 12 H NaCl 0.9% 20 mL 20 mL INTRAVENOUS PRN ondansetron 4 mg tab(s) (ZOFRAN) 4 mg ORAL q 6 H PRN Or ondansetron (PF) 4 mg injection (ZOFRAN) 4 mg INTRAVENOUS q 6 H PRN oxyCODONE IR 10 mg tab(s) (ROXICODONE) 10 mg ORAL q 3 H PRN oxyCODONE IR 5 mg tab(s) (ROXICODONE) 5 mg ORAL q [address] 40 mg tab(s) (PROTONIX) 40 mg ORAL DAILY (6 AM) Or pantoprazole 40 mg granules for suspension (PROTONIX) 40 mg ORAL DAILY (6 AM) polyethylene glycol 3350 17 g packet (MIRALAX, GLYCOLAX) 17 g ORAL DAILY PRN potassium chloride ER 40 mEq tab(s) (K-DUR, KLOR-CON) 40 mEq ORAL BID prochlorperazine 5 mg injection (COMPAZINE) 5 mg INTRAVENOUS q 6 H PRN senna-docusate 8.6-50 mg 1 tablet (SENNA-S) 1 tablet ORAL BID Date 07/02/181499 - 07/03/1865807/03/18 0700 - 07/04/18 0659 Shift 8565-5121 1448-2807 24 Hour Total 9170-4368 2745-9519 9777-9781 24 Hour Total I N T A K E PO 360 240 960 430 430 PO 360 240 960 430 430 Shift Total 360 240 960 430 430 O U T P U T Urine 200 425 925 Void (ml) 200 425 925 Urine Not Saved. 1 x 3 x 1 x 1 x Tubes 40 35 120 40 40 Drain/Tube Output (Drain/Tube 06/28/187 Assessment Michael Odonnell Right Abdomen Drain #1) 40 35 120 40 40 # of BMs Number of BMs 1 x 2 x 1 x 1 x Shift Total 203 617 5719 40 40 Weight (kg) 86.5 85 85 85 85 85 85 Surgical Incision 06/28/18 2250 Abdomen - Midline (Active) Dressing Status Clean, Dry AND Intact 07/03/2018 10:00 AM Frequency of Dressing Change Every 3 Days 07/03/2018 10:00 AM Dressing Change Due 06/30/18 06/28/2018 10:50 PM Dressing /Treatment Type Negative Pressure Wound Therapy 07/03/2018 10:00 AM Incision Closures Other: See Comment 06/28/2018 10:50 PM Drainage Description None 07/03/2018 10:00 AM Drainage Amount None 07/03/2018 10:00 AM Edges Intact 07/03/2018 10:00 AM Hematoma No 07/03/2018 10:00 AM Number of days: 4 MNT Billing Type: Re-assess/15 min 2 units SIGNATURE: Mira Livingston RD PATIENT NAME: Becca Magana DATE: July 03, 2018 TIME: 3:26 PM PAGER: [phone] THERAPY NT Observed: 07/03/2018 Status: COMPLETED Source: [place] 11:33 AM CLINIC OTHER CAMPUS REPOSITORY HNO ID: [id number] Author: Anum Hathaway/Gema Mcfarland Service: Occupational Therapy Author Type: Occupational Therapist Type: Therapy (PT/OT/Speech/Resp) Filed: 07/03/2018 2:02 PM Note Text: Occupational Therapy SERVICE DATE: 07/03/2018 SERVICE TIME: 1107 to 1123 ROOM: [id number] Recommended Discharge Disposition: Home Recommended Discharge Disposition Comments: Pt home with increased assist from /son to complete ADL/IADLs PRN Anticipated Discharge Needs: Physical Assist at Home Physical Assist at Home for: Cleaning;Laundry;Meals OT Recommendations to Nursing: To Bathroom for ADL?s /and or Toileting;With assist of 1 person;Transfer to Chair;OOB for meals OT 6 Clicks Score: 22 Precautions/Activity Restrictions: Abdominal Precaution/Activity Restriction Comments: abdominal ALBERTA drain and wound vac Isolation Type: None ASSESSMENT: OT Evaluation Low Complexity: Occupational Profile - Brief review of patient's medical record completed (please see current hospital course of evaluation). Occupational Performance - Pt presents with no deficits. Complexity in Clinical Decision Making - The extent of clinical reasoning was low, no need for modifications during the evaluation process, few comorbidities present to affect patient's occupational performance: colon cancer Patient Disposition at Start of Session: Supine in Bed;Call Trevino in Reach Patient Disposition at End of Session: OOB in Chair;Call Trevino in Reach Tolerated Full Session Occupational Therapy Problem List: Education Deficit;Pain;Impaired Self Care;Decreased Activity Tolerance Patient /Caregiver Goals: Go Home;Care For Self Rehab Potential: Excellent PLAN: Treatment Frequency (times per week): Discontinue Therapy Services Reasons Therapy Services Discontinued: Independent in all functional mobility;No skilled needs Current admission Treatment Interventions: Education;Self Care / Home Management Plan of Care developed with: Patient TREATMENT INTERVENTIONS: Therapy Diagnosis: Reduced mobility-other;Decreased activities of daily living (ADL);Unsteadiness on feet Interventions Provided: Evaluation $ Evaluation-Low (40806) Billed Units: 1 unit Facilitated functional mobility in hallway with IV pole. Provided opportunity for safe standing ADL of oral hygiene and washing face at sink to increase ADL participation and standing activity tolerance for approx 5 minutes. Provided stand by assist for pt to complete ADL successfully. Facilitated functional mobility to chair with fall guard assist. Edu pt on fall prevention / up with assistance. Pt left in room in chair / bed and chair alarm activated / bed alarm activated with calllight within reach. Total Treatment Time (minutes): 16 FUNCTIONAL G CODE: OT 6 Clicks Score: 22 (07/03/18 1107) Self Care Current Status (G8987): (07/03/18 1107) Self Care Goal Status (G8988): CJ (07/03/18 1107) Self Care Discharge Status (G8989): (07/03/18 110) Based on clinical assessment and the score on the 6 Clicks Functional Assessment Tool, the G code and corresponding severity modifiers are documented above. SUBJECTIVE: Current Hospital Course: Chart reviewed; 62 year old M presented to [facility] ED on 06/20 with progressively worsening severe nonradiating vance-umbilical pain, concern for bowel obstruction, was managed conservatively and subsequently discharged. He states that Dr Dhillon reviewed his new images and directly admitted him to [facility] 06/26/18. Pt admits to some persistent worsening abdominal pain, worse with movement. 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 with en bloc SB resection - PAST SURGICAL HISTORY OF 05/22/16 wedge liver bx, ileum wedge rsxn, omentectomy, debulking, HIPEC Reason for Occupational Therapy Consult: Progressive mobility protocol Relevant Past Medical History: Colon cancer Patient Report: I do okay, I know I need to keep moving so I am better for when I go home on Sunday Pain: 2 Abdominal Verbal Home Environment Patient Lives With: Spouse () Assistance Available: 24 Hour ( and son) Entry To Home: Stairs Number Of Stairs Into Home: 3 Number Of Stairs To Bed/Bath: able to stay on 1st floor Tub/Shower Type: walk in Laundry: can complete Prior Functional Level: Within Functional Limits Prior Functional Level Comments: I with ADL/IADLs, driving, functional mob/transfers OBJECTIVE: Cognition/Communication Deficits Responsiveness: Awake;Alert Follows Commands: 2-step Commands CURRENT FUNCTIONAL STATUS: Current Activities of Daily Living Assist Level Feeding Independent Grooming Contact Guard Assistance Bathing Upper Body Contact Guard Assistance Bathing Lower Body Minimal Assistance Dressing Upper Body Contact Guard Assistance Dressing Lower Body Minimal Assistance Toileting Contact Guard Assistance Functional Mobility Assist Level Rolling Supine to Sit Contact Guard Assistance Sit to Supine Contact Guard Assistance Scooting Sit to Stand Contact Guard Assistance Stand to Sit Contact Guard Assistance Bed to Chair Toilet/Commode Contact Guard Assistance Functional Mobility Contact Guard Assistance IV Pole Balance: Static Standing;Dynamic Standing Static Standing Balance: Contact Guard Assistance Dynamic Standing Balance: Contact Guard Assistance Hand Dominance: Right Range of Motion: WFL Strength: WFL I reviewed and agree with the documentation corresponding to this therapy visit Anum Mcfarland OTR/L Please see discipline specific clinical documentation flowsheet for complete details for this therapy evaluation/treatment. SIGNATURE: Madeleine Peres/ADAM PATIENT NAME: Becca Magana DATE: July 03, 2018 TIME: 11:34 AM PROGRESS Observed: 07/03/2018 Status: COMPLETED Source: [facility] 8:57 AM CLINIC OTHER CAMPUS REPOSITORY HNO ID: [id number] Author: July Borrego Service: Pain Management Author Type: Physician Type: Progress Notes Filed: 07/03/2018 8:59 AM Note Text: BECCA MAGANA 62 year old PAIN CONSULTATION: Abdominal pain, colon cancer Pain Description: pt has tried to go w/o pain meds- some increased pain this AM sitting in chair- c/o no appetite. Limited activity due to pain. Some nausea Interval HPI 12 Surgery- clamp G tube; ALBERTA to bulb sxn, added Toradol 06/29 Pain currently 10/10 in severity, improves to perhaps 8/10 at its best, inadequately relieved, Sharp/aching, aggravated by any movement, palpation. Subjective HPI: 62-year-old male, status post surgery and 06/28/2018 at which time he underwent resection of abdominal wall masses ?3, SBR ?3 with 1 anastomosis, splenectomy, repair of diaphragmatic defect, insertion of left chest tube, gastric duodenostomy tube placement, bilateral myocutaneous flaps, placement of retrocrural mass, with findings of masses of anterior and right lateral abdominal wall, splenic lesions with diaphragmatic extension, now resected. He had presented to [facility] Emergency department on 06/20 with progressive nonradiating periumbilical pain, with findings of concern for bowel obstruction that was managed conservatively. He was seen by Dr. Dhillon on the day of admission who have directly admitted secondary to persistent and worsening abdominal pain, and sought mechanical cause of partial small bowel obstruction. At presentation, he was able to eat, was having bowel movements without bleeding, no nausea, emesis, and also denied pulmonary, and complaints. This patient has an extensive history of metastatic colon carcinoma. He is followed by Dr. Stone in [place] who summarizes his history with his malignancy as follows: 1) Metastatic recurrence of stage III colon cancer. MSI stable. BRAF - A sequence change: [id number] ([id number]) was detected at approximately 48% allele proportion. [Reference sequence: (NM_[id number])]. KRAS - No variant detected [Reference?sequence: ([id number])]. NRAS - No variant detected [Reference sequence: ([id number])]. ? Patient referred by ongoing management of metastatic colon cancer. ? HPI: The patient is a 62 yo male who developed abdominal pain around June 2014. His symptoms progressively worsened throughout the spring. He also began losing weight in the spring and this culminated in a hospitalization for what was thought to be diverticulitis in December 2014. He underwent a CT scan which was thought to demonstrated a left lower quadrant abscess. The drain was placed and he was treated with antibiotic treatment. Pain flared and a repeat CT scan on 01/24/15 demonstrated marked inflammatory phlegmonous changes of the proximal sigmoid colon. He therefore underwent a colonoscopy and sigmoid colon resection with lymph node dissection on 01/29/2015. The sigmoid colon was noted to be adherent to the anterior abdominal wall and small bowel. The final pathology demonstrated an invasive moderately differentiated adenocarcinoma, tumor extension through the colonic wall and involving the muscularis propria of the small bowel. The proximal margin resection had a small focus of tumor present at the serosal surface. None of 25 lymph nodes were involved. The patient went on to receive 12 cycles FOLFOX which she finished on 09/13/2015. ? Surveillance CT scan the abdomen and pelvis on January 06, 2016 demonstrated a small omental nodules. He was treated with 4 cycles of FOLFIRI and then underwent exploratory laparotomy, excision of peritoneal/liver/small bowel/mesenteric nodules, heated intraperitoneal chemotherapy (HIPEC) administration for 100 minutes, cystoscopy with bilateral ureteral stent placement on 05/22/2016. His [place] prescription history shows recent MS Contin 15 mg every 12 hours #14, and [place] 5/325#28 both filled on 06/21/2018 at the time of his last hospital discharge. Prior to this, had only one prescription approximately one year ago for [place] #15. ? Pathology: 1. Small bowel peritoneal nodules, excision (A) - Organizing fibrous adhesions. - No evidence of malignancy. 2. Left liver nodule, biopsy (B) - Adenocarcinoma in liver, consistent with colonic primary. 3. Omentum, excision (C) - Infiltrating adenocarcinoma, consistent with colonic primary. 4. Left upper quadrant abdominal wall, biopsy (D) - Infiltrating adenocarcinoma, consistent with colonic primary. 5. Pelvic nodule and omentum, excision (E) - Infiltrating adenocarcinoma, consistent with colonic primary. - One lymph node, negative for malignancy (0/1). 6. Ileal nodule, excision (F) - Infiltrating adenocarcinoma, consistent with colonic primary. ? In end of July/first week of August this year he underwent repeat staging workup (CT and PET) which unfortunately showed liver metastasis and intra-abdominal metastases. ? He recently started back on chemotherapy with FOLFIRI and cetuximab. He's had 2 cycles to date. ? Previous therapy: 1) FOLFOX ?12 cycles completed 09/13/2015. 2) FOLFIRI x4 cycles. 3) Exploratory lap 04/2016 with HIPEC (mitomycin). ? Current therapy: 1) FOLFIRI (with Vectibix--side effects permitting). Current Facility-Administered Medications: acetaminophen 975 mg CUP (TYLENOL) 975 mg ORAL QID Lai (Res) Ramirez 975 mg at 07/01/18 0859 Or acetaminophen 975 mg tab(s) (TYLENOL) 975 mg ORAL QID Lai (Res) Ramirez 975 mg at 07/02/18 0936 bisacodyl 10 mg suppository (DULCOLAX) 10 mg RECTAL DAILY PRN Lai (Res) Ramirez enoxaparin 40 mg injection (LOVENOX) 40 mg SUBCUTANEOUS DAILY Esteban (Res) Carlos Albertoo, DO 40 mg at 07/02/18 0932 heparin 100 unit/mL 200-500 Units injection 200-500 Units INTRAVENOUS PRN Trixie (Res) MD Jonny 500 Units at 07/02/18 2241 HYDROmorphone HCl 1 mg injection (DILAUDID) 1 mg INTRAVENOUS q 3 H PRN Dion Carroll Bibi 1 mg at 07/01/182149 ketorolac 15 mg injection (TORADOL) 15 mg INTRAVENOUS q 6 H Tripp (Sammie) Sheridan 15 mg at 07/02/182236 minocycline 100 mg cap(s) (MINOCIN, DYNACIN) 100 mg ORAL BID Lai (Res) Ramirez 100 mg at 07/02/182051 NaCl 0.9% 10 mL 10 mL INTRAVENOUS q 12 H Esteban (Res) Gastaldo, DO 10 mL at 07/02/181953 NaCl 0.9% 20 mL 20 mL INTRAVENOUS PRN Esteban (Res) Gastaldo, DO 20 mL at 07/02/182241 ondansetron 4 mg tab(s) (ZOFRAN) 4 mg ORAL q 6 H PRN Esteban (Res) Gastaldo, DO Or ondansetron (PF) 4 mg injection (ZOFRAN) 4 mg INTRAVENOUS q 6 H PRN Esteban (Res) Gastaldo, DO 4 mg at 07/01/18 1728 oxyCODONE IR 10 mg tab(s) (ROXICODONE) 10 mg ORAL q 3 H PRN Dion Carroll Bbii 10 mg at 07/01/18 0654 oxyCODONE IR 5 mg tab(s) (ROXICODONE) 5 mg ORAL q 3 H PRN Dion Carroll Bibi pantoprazole DR 40 mg tab(s) (PROTONIX) 40 mg ORAL DAILY (6 AM) Lai (Res) Ramirez 40 mg at 07/03/18 0551 Or pantoprazole 40 mg granules for suspension (PROTONIX) 40 mg ORAL DAILY (6 AM) Lai (Res) Ramirez polyethylene glycol 3350 17 g packet (MIRALAX, GLYCOLAX) 17 g ORAL DAILY PRN Lai (Res) Ramirez potassium chloride ER 40 mEq tab(s) (K-DUR, KLOR-CON) 40 mEq ORAL BID Esteban (Res) Gastaldo, DO 40 mEq at 07/02/182051 prochlorperazine 5 mg injection (COMPAZINE) 5 mg INTRAVENOUS q 6 H PRN Tripp Shaikh) Sheridan 5 mg at 12/10/18 2105 senna-docusate 8.6-50 mg 1 tablet (SENNA-S) 1 tablet ORAL BID Lai (Res) Ramirez 1 tablet at 07/02/182051 Prescriptions Prior to Admission: XARELTO 20 mg tablet TAKE ONE TABLET BY MOUTH DAILY WITH DINNER. Disp: 30 tablet Rfl: 5 Past Week at Unknown time dexamethasone (DECADRON) 4 mg tablet TAKE ONE TABLET BY MOUTH TWICE DAILY (Patient not taking: Reported on 06/26/2018) Disp: 10 tablet Rfl: 5 Not Taking minocycline (MINOCIN, DYNACIN) 100 mg capsule Take 100 mg by mouth twice daily. Disp: Rfl: 3 Not Taking ondansetron (ZOFRAN) 8 mg tablet Take 1 tablet by mouth every 8 hours as needed for Nausea/Vomiting. (Patient not taking: Reported on 06/26/2018 ) Disp: 30 tablet Rfl: 2 Not Taking potassium chloride ER (K-DUR, KLOR-CON) 20 mEq tablet Take 1 tablet by mouth three times daily. (Patient taking differently: Take 40 mEq by mouth twice daily. ) Disp: 90 tablet Rfl: 2 promethazine (PHENERGAN) 25 mg tablet Take 1 tablet by mouth every 6 hours as needed. FOR NAUSEA (Patient not taking: Reported on 06/26/2018 ) Disp: 20 tablet Rfl: 2 Not Taking Social History Marital status: Spouse name: Years of education: Number of children: Social History Main Topics Smoking status: Former Smoker Packs/day: 0.50 Years: 10.00 Types: Cigarettes Quit date: 01/21/1990 Smokeless tobacco: Never Used Alcohol use: Yes Comment: beer once in awhile Drug use: No Other Topics Concern Caffeine Concern Yes Special Diet No Exercise No FAMILY HISTORY Problem Relation Age of Onset - Colon Cancer Paternal Grandfather 83 - Diabetes Sister PAST SURGICAL HISTORY Procedure Laterality Date - APPENDECTOMY at age 8 - LAP COLECTOMY, 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 with en bloc SB resection - PAST SURGICAL HISTORY OF 05/22/16 wedge liver bx, ileum wedge rsxn, omentectomy, debulking, HIPEC ROS: All of the following reviewed and negative except as noted below: GENERAL: no fever, chills, sweats, weight loss, fatigue, generalized weakness HEENT: no headache, vision changes, eye discomfort, hearing change, ear discomfort, sinus pain, nasal discharge or congestion, oral lesions, soreness, dental problem NECK: no adenopathy, discomfort, change in ROM CHEST: no shortness of breath, dyspnea on exertion, wheezing, cough, sputum production or chest pain HEART: no chest pain, palpitations, syncope ABDOMEN: no nausea, vomiting, constipation, diarrhea, abdominal pain : no dysuria, urgency, frequency, history of stones, incontinence NEURO: Tolerating oxycodone better without confusion. Was having some confusion and sedation with IV Dilaudid yesterday. EXTREMITIES: no new pain, edema, change in ROM HEME: no new adenopathy, bruises, petechiae PSYCH: no depression, anxiety, agitation PHYSICAL EXAMINATION: see below for new or abnormal findings BP 121/75 Pulse 79 Temp 36.7 ?C (98.1 ?F) (Oral) Resp 18 Ht 185.4 cm (6' 1) Wt 85 kg (187 lb 4.8 oz) SpO2 97% BMI 24.71 kg/m? BMI 24.71 kg/(m2) GENERAL: well nourished and developed; no acute distress; alert and oriented x 3; intact judgement and insight HEENT: no evidence of trauma; cranial nerves intact; eyes clear EOMI; no hearing deficits apparent; nasal passages unremarkable; throat and mucous membranes clear NECK: supple without lymphadenopathy; no JVD; no thyromegaly CHEST: clear bilaterally to auscultation; normal chest movement; no rales or rhonchi HEART: regular rate and rhythm, normal S1 and S2, no murmurs, clicks, rubs, or gallops ABDOMEN: soft; nondistended; bowel sounds present; no hepatomegaly; no splenomegaly; mild tender +ALBERTA serosanguinous EXTREMITIES: no evidence of clubbing; no cyanosis; no deformity; no joint effusion; no edema NEURO: cranial nerves intact; no focal deficits; no confusion; no tremor; sensorium normal SKIN: no rash; no skin breakdown; no decubitus lesions HEME: no bruising; no adenopathy PSYCH: no evidence of depression; no anxiety; no agitation; no apparent hallucinations ABNORMAL/NEW FINDINGS: NONE CBC: No results for input(s): WBC, RBC, HB, HCT, PLT, MCV, MCH, MPV, RDW in the last 24 hours. CMP: No results for input(s): NA, K, CHLOR, CO2, BUN, CREAT, GLUC, TPROT, CA, MG, ALBUMIN, TBILI, ALKPHOS, ALT, AST, ANION in the last 24 hours. Heme: No results for input(s): RETICP, ABSRETIC, LD, SARAH, FE, TIBC, TRANSFERSAT in the last 24 hours. 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 MSContin 15mg BID AND [place]-no longer taking, pt was trying to get off opiates FI[employer] CHIEF Pt goal minimize opiates; Toradol added 07/01- beneficial per pt Increase activity as tolerated; appreciate PT input Goal home at discharge July Borrego MD PROGRESS Observed: 07/03/2018 Status: COMPLETED Source: [place] 6:47 AM CLINIC OTHER CAMPUS REPOSITORY O ID: [id number] Author: Lai (Sandra Ramirez Service: General Surgery Author Type: Resident Type: Progress Notes Filed: 07/03/2018 6:55 AM Note Text: Attestation signed by Justin Dhillon at 07/03/2018 8:22 PM Attending Note I personally saw and examined the patient. I reviewed the resident's note. I agree with the resident's assessment and plan with the following revisions and/or additions: anticipate DC this Sunday. Continues to do better Signature: Justin Dhillon MD Date: 07/03/2018 Time: 8:22 PM Elect[facility] General Surgery Progress Note SERVICE DATE: 07/03/2018 Elective General Surgery Service Pager: For questions or concerns Sun-Sun 6a-5p please page [phone]. After 5pm and on Weekends and Holidays, please page [phone] if in ICU or [phone] if on RNF. SUBJECTIVE: +Nausea, poor appetite Weak but improving Tolerating diet DIET GASTRO INTESTINAL Nausea Yes Emesis No Flatus Yes Bowel movement Yes Pain Controlled Yes Ambulating Yes OBJECTIVE: Vitals: Temp (24hrs), Av.6 ?C (97.8 ?F), Min:36.1 ?C (97 ?F), Max:36.8 ?C (98.2 ?F) BP 121/75 Pulse 79 Temp 36.7 ?C (98.1 ?F) (Oral) Resp 18 Ht 185.4 cm (6' 1) Wt 85 kg (187 lb 4.8 oz) SpO2 97% BMI 24.71 kg/m? O2 Therapy: Room Air IANDO: Date 07/02/18699 - 07/03/1865807/03/18699 - 07/04/18 0659 Shift 3075-9121 6694-7424 7352-9467 24 Hour Total 0760-4859 4460-0680 8145-2400 24 Hour Total I N T A K E PO 360 360 240 960 PO 360 360 240 960 Shift Total 360 360 240 960 O U T P U T Urine 300 200 425 925 Void (ml) 300 200 425 925 Urine Not Saved. 2 x 1 x 3 x Tubes 45 40 35 120 Drain/Tube Output (Drain/Tube 06/28/18 1857 Assessment Michael Odonnell Right Abdomen Drain #1) 45 40 35 120 # of BMs Number of BMs 1 x 1 x 2 x Shift Total 345 459 065 8454 Weight (kg) 86.5 86.5 85 85 85 85 85 85 MEDICATIONS Current Facility-Administered Medications: acetaminophen 975 mg CUP (TYLENOL) 975 mg ORAL QID Or acetaminophen 975 mg tab(s) (TYLENOL) 975 mg ORAL QID bisacodyl 10 mg suppository (DULCOLAX) 10 mg RECTAL DAILY PRN enoxaparin 40 mg injection (LOVENOX) 40 mg SUBCUTANEOUS DAILY heparin 100 unit/mL 200-500 Units injection 200-500 Units INTRAVENOUS PRN HYDROmorphone HCl 1 mg injection (DILAUDID) 1 mg INTRAVENOUS q 3 H PRN ketorolac 15 mg injection (TORADOL) 15 mg INTRAVENOUS q 6 H minocycline 100 mg cap(s) (MINOCIN, DYNACIN) 100 mg ORAL BID NaCl 0.9% 10 mL 10 mL INTRAVENOUS q 12 H NaCl 0.9% 20 mL 20 mL INTRAVENOUS PRN ondansetron 4 mg tab(s) (ZOFRAN) 4 mg ORAL q 6 H PRN Or ondansetron (PF) 4 mg injection (ZOFRAN) 4 mg INTRAVENOUS q 6 H PRN oxyCODONE IR 10 mg tab(s) (ROXICODONE) 10 mg ORAL q 3 H PRN oxyCODONE IR 5 mg tab(s) (ROXICODONE) 5 mg ORAL q [address] 40 mg tab(s) (PROTONIX) 40 mg ORAL DAILY (6 AM) Or pantoprazole 40 mg granules for suspension (PROTONIX) 40 mg ORAL DAILY (6 AM) polyethylene glycol 3350 17 g packet (MIRALAX, GLYCOLAX) 17 g ORAL DAILY PRN potassium chloride ER 40 mEq tab(s) (K-DUR, KLOR-CON) 40 mEq ORAL BID prochlorperazine 5 mg injection (COMPAZINE) 5 mg INTRAVENOUS q 6 H PRN senna-docusate 8.6-50 mg 1 tablet (SENNA-S) 1 tablet ORAL BID Labs: Recent Labs 07/03/18 0435 07/02/18 0445 NA 139 138 K 3.9 3.8 CHLOR 105 106 CO2 25 25 BUN 13 13 CREAT 0.80 0.91 GLUC 76 78 ANION 13 11 CA 8.0* 7.7* WBC 10.88* 12.77* HB 8.0* 9.0* HCT 25.4* 28.0* PLT 474* 409* Exam: GENERAL: No distress, Alert NEURO: AANDOx3, CN II-XII grossly intact HEENT: normocephalic, atraumatic LUNGS: Unlabored breathing CARDIAC: Regular rate and rhythm as above ABDOMEN: Soft, ND, minimally TTP, Prevena intact, ALBERTA serosang, G-D Tube intact EXTREMITIES: HEDRICK, No deformities, + edema SKIN: Skin color, texture, turgor normal, No rashes or lesions ASSESSMENT AND PLAN: Active Hospital Problems Diagnosis Date Noted - Carcinomatosis (HCC) 06/26/2018 Overview Note: Added automatically from request for surgery [id number] 62 year old male with Metastatic Sigmoid Colon cancer and Carcinomatosis s/p Sigmoidectomy, Wedge Liver Rxn, SBR, Omentectomy, Debulking, and HIPEC in 2014 and 2015 ? - Soft GI - Clamp G tube - pain ctl per pain mgmt - ALBERTA to bulb sxn - Prevena - ambulate - Leukocytosis without SIRS resolved - acute blood loss anemia on chronic anemia - stable, monitor - IS - PT/OT recs home - dispo planning - patient doesn't feel ready for home quite yet, possibly by Sunday SIGNATURE: Lai Ramirez MD PATIENT NAME: Becca Magana DATE: July 03, 2018 TIME: 6:47 AM Pager: Elective General Surgery Service Pager: For questions or concerns Mon-Sun 6a-5p please page [phone]. After 5pm and on Weekends and Holidays, please page [phone] if in ICU or [phone] if on RNF. HEMOGRAM/DIFF Collected: 07/03/2018 Status: F Source: [facility] 4:35 AM HEALTH SYSTEM REPOSITORY TYPE CODE TESTS RESULT OUT OF REFERENCE UNITS RANGE LAB WBC(LOINC) 4.23-9.07 thou/cmm WBC High 10.88 LAB RBC(LOINC) 4.63-6.08 mil/cmm Low RBC 2.74 LAB HGB(LOINC) 13.7-17.5 g/dL Low Hgb 8.0 LAB HCT(LOINC) 40.1-51.0 % Low Hct 25.4 LAB MCV(LOINC) 83.2-95.6 fl MCV 92.7 LAB MCH(LOINC) 25.7-32.2 pg MCH 29.2 LAB MCHC(LOINC 32.3-36.5 % ) Low MCHC 31.5 LAB RDW(LOINC) 11.6-14.4 % RDW High 14.6 LAB RDWSD(LOIN 36.1-45.8 fl C) RDW SD High 49.2 LAB PLT(LOINC) 141-365 thou/cmm Platelet High 474 LAB MPV(LOINC) 8.7-12.0 fl MPV 9.0 LAB NRBCR(LOIN 0.0-0.2 % C) Nucleated RBC % 0.2 LAB SEG(LOINC) % Seg Neutrophil 70.8 LAB IGRE(LOINC % ) Immature Grans 0.70 LAB LYMPH(LOIN % C) Lymphocyte 10.9 LAB MNO(LOINC) % Monocyte 13.1 LAB EOSIN(LOIN % C) Eosinophil 4.0 LAB BASO(LOINC % ) Basophil 0.5 LAB NRBCA(LOIN 0.00-0.01 thou/cmm C) High Nucleated RBC 0.02 Absolute LAB SEGN(LOINC 1.78-5.38 thou/cmm ) Abs. High Neut (ANC) 7.70 LAB IGAB(LOINC 0.00-0.05 thou/cmm ) Abs High Immature Grans 0.08 LAB LYMN(LOINC 0.84-2.85 thou/cmm ) Abs. Lymph 1.19 LAB MONON(LOIN 0.30-0.82 thou/cmm C) Abs. High [place] 1.43 LAB EOSN(LOINC 0.04-0.54 thou/cmm ) Abs. Eosin 0.44 LAB BASON(LOIN 0.01-0.08 thou/cmm C) Abs. Baso 0.05 Performed By: #### [id number] #### [address] [address] BASIC PANEL Collected: 07/03/2018 Status: F Source: [facility] 4:35 AM HEALTH SYSTEM REPOSITORY TYPE CODE TESTS RESULT OUT OF REFERENCE UNITS RANGE LAB NA(LOINC) 136-145 mEq/L Sodium Blood 139 LAB K(LOINC) 3.5-5.1 mEq/L Potassium Blood 3.9 LAB CL(LOINC) 98-107 mEq/L Chloride Blood 105 LAB CO2(LOINC) 21-32 mEq/L CO2 Blood 25 LAB GLU(LOINC) 70-99 mg/dL Glucose Blood 76 LAB BUN(LOINC) 7-18 mg/dL BUN Blood 13 LAB CREA(LOINC 0.67-1.17 mg/dL ) Creatinine Blood 0.80 LAB CA(LOINC) 8.5-10.1 mg/dL Low Calcium Blood 8.0 LAB ANGAP(LOIN 8-16 C) Anion Gap 13 Performed By: #### P8 #### [facility] [address] [address] THERAPY NT Observed: 07/02/2018 Status: COMPLETED Source: [place] 4:20 PM CLINIC OTHER CAMPUS REPOSITORY HNO ID: [id number] Author: Mira (PtBell Torres Service: Physical Therapy Author Type: Physical Therapist Type: Therapy (PT/OT/Speech/Resp) Filed: 07/02/2018 4:27 PM Note Text: Physical Therapy Evaluation SERVICE DATE: 07/02/2018 SERVICE TIME: 1530 to 1605 (part of time patient was in the bathroom) ROOM: [id number] Recommended Discharge Disposition: Home Patient currently not a household ambulation level PT Recommendations to Nursing: Ambulate with device;To bathroom Device: Hand Held Assist PT 6 Clicks Score: 17 Precautions/Activity Restrictions: Abdominal Precaution/Activity Restriction Comments: abdominal ALBERTA drain and wound vac Isolation Type: None ASSESSMENT : Patient who was admitted for abdominal pain and recurrence of metastatic colon cancer requiring surgery and drain/wound vac, presents with an evolving hospital course and the past medical history of colon cancer since 2014 limiting current functional level, as well as the social factors complicating the discharge of his will not be home in [place] until Sunday; thus the patient required a moderate level complexity evaluation. This patient is below baseline functioning of being independent and will benefit from continued skilled therapy in the hospital for treatment of integumentary and endurance impairments which require gait training, transfer training, general strengthening, balance training, safety and endurance training. Currently the recommendation is home due to above listed functional deficits. Patient Disposition at Start of Session: Supine in Bed Patient Disposition at End of Session: Supine in Bed Tolerance Limited By Fatigue Physical Therapy Problem List: Education Deficit;Safety Deficits;Decreased Activity Tolerance;Decreased Strength;Functional Mobility Impairment;Balance Impaired Patient /Caregiver Goals: Walk Goals for Plan of Care: Rolling with: Independent (from a flat bed) Transfer supine to/from sit with: Independent Transfer sit to/from stand with: Independent Ambulate with: Independent Distance: 50 Device: No Device Ambulate up and down steps with: Independent Number of steps: 4 Device: Rail Rehab Potential: Excellent PLAN: Treatment Frequency (times per week): 5 (2-5) Current admission Treatment Interventions: Education;Strengthening;Functional Mobility Training;Balance Training Plan of Care developed with: Patient TREATMENT INTERVENTIONS: Therapy Diagnosis: Muscle Weakness (generalized);Abnormalities of gait and mobility-other Interventions Provided: Evaluation;Therapeutic Activity (12072) $ Evaluation-Moderate (85504) Billed Units: 1 unit Therapeutic Activity (95750) Treatment Minutes: 8 1 unit Skilled Intervention(s): Education with slow transitions to avoid pain and dizziness with sitting and standing. Education on the need for ambulation to prepare for home going. Total Timed Code Treatment Minutes: 8 Total Treatment Time (minutes): 25 FUNCTIONAL G CODE: PT 6 Clicks Score: 17 (07/02/18 1530) Mobility: Walking and Moving Around Current Status (G8978): CK (07/02/18 1530) Mobility: Walking and Moving Around Goal Status (G8979): CJ (07/02/18 1530) Based on clinical assessment and the score on the 6 Clicks Functional Assessment Tool, the G code and corresponding severity modifiers are documented above. SUBJECTIVE: Current Hospital Course: Chart reviewed; SURGERY/PROCEDURE: 1. Exploratory laparotomy. 2. Lysis of adhesions greater than 30 minutes. 3. Excision of abdominal wall mass x2. 4. Small-bowel resection x3 with primary anastomosis. 5. Excision of peritoneal nodule. 6. Splenectomy. 7. G-tube placement. 8. Creation of bilateral myofascial cutaneous muscle flaps. 9. Wound VAC placement. Reason for Physical Therapy Consult : jorgeal sp surgery Patient Report: patient was fatigued with gait but stated he knew he had to walk Home Environment Patient Lives With: Spouse () Assistance Available: 24 Hour Entry To Home: Stairs Number Of Stairs Into Home: 3 Number Of Stairs To Bed/Bath: can do 1st floor set up Prior Functional Level: Within Functional Limits Prior Functional Level Comments: Patient is hoping to go the [place] the day after [place] OBJECTIVE: .Range of Motion: WFL Strength: WFL Except;Strength Limitation Comments Strength Limitation Comments: weak due to pain CURRENT FUNCTIONAL STATUS: Current Functional Mobility Assist Level Additional Information Rolling Minimal Assistance Supine to Sit Minimal Assistance Sit to Supine Minimal Assistance Scooting Sit to Stand Minimal Assistance Stand to Sit Minimal Assistance Bed to Chair Toilet/Commode Gait Minimal Assistance Gait Device: IV Pole Gait Distance (feet): 30 ft intervals Stairs Curb Step Car Transfer General Gait Deviations: Flexed trunk posture;Lateral sway increased;Non-functional gait speed -HLM: 7: Walk 25 feet or more Please see discipline specific clinical documentation flowsheet for complete details for this therapy evaluation/treatment. SIGNATURE: Mira Torres PT PATIENT NAME: Becca Magana DATE: July 02, 2018 TIME: 4:20 PM CASE MANAGEM Observed: 07/02/2018 Status: COMPLETED Source: [place] 9:20 AM [facility] OTHER [place] REPOSITORY HNO ID: [id number] Author: Irish (Rn) DENAE Johnson Service: Care Management Author Type: Registered Nurse Type: Care Mgt Progress Note Filed: 07/02/2018 9:42 AM Note Text: CARE MANAGEMENT PROGRESS NOTE SERVICE DATE: 07/02/2018 SERVICE TIME: 9:20 AM LOS: 6 days Met with patient at bedside. States he plans to return home with spouse at discharge. Declines need for DME or therapy at home. Prevena wound vac intact. G-tube is clamped at this time. Will follow for need for [facility] for Gtube feeding/care. SIGNATURE: Irish Johnson RN PATIENT NAME: Becca Magana DATE: July 02, 2018 TIME: 9:20 AM PAGER/CONTACT #: [phone] PROGRESS Observed: 07/02/2018 Status: COMPLETED Source: [place] 8:35 AM [facility] OTHER [place] REPOSITORY HNO ID: [id number] Author: July Borrego Service: Pain Management Author Type: Physician Type: Progress Notes Filed: 07/02/2018 8:38 AM Note Text: BECCA MAGANA 62 year old PAIN CONSULTATION: Abdominal pain, colon cancer Pain Description: pressure better with Toradol; had BM this Am. New sharp RLQ pain- intermittent. Some n/v yesterday Interval HPI 07/01 Surgery- clamp G tube; ALBERTA to bulb sxn, added Toradol 06/29 Pain currently 10/10 in severity, improves to perhaps 8/10 at its best, inadequately relieved, Sharp/aching, aggravated by any movement, palpation. Subjective HPI: 62-year-old male, status post surgery and 06/28/2018 at which time he underwent resection of abdominal wall masses ?3, SBR ?3 with 1 anastomosis, splenectomy, repair of diaphragmatic defect, insertion of left chest tube, gastric duodenostomy tube placement, bilateral myocutaneous flaps, placement of retrocrural mass, with findings of masses of anterior and right lateral abdominal wall, splenic lesions with diaphragmatic extension, now resected. He had presented to [facility] Emergency department on 06/20 with progressive nonradiating periumbilical pain, with findings of concern for bowel obstruction that was managed conservatively. He was seen by Dr. Dhillon on the day of admission who have directly admitted secondary to persistent and worsening abdominal pain, and sought mechanical cause of partial small bowel obstruction. At presentation, he was able to eat, was having bowel movements without bleeding, no nausea, emesis, and also denied pulmonary, and complaints. This patient has an extensive history of metastatic colon carcinoma. He is followed by Dr. Stone in [place] who summarizes his history with his malignancy as follows: 1) Metastatic recurrence of stage III colon cancer. MSI stable. BRAF - A sequence change: [id number] ([id number]) was detected at approximately 48% allele proportion. [Reference sequence: ([id number])]. KRAS - No variant detected [Reference?sequence: ([id number])]. NRAS - No variant detected [Reference sequence: ([id number])]. ? Patient referred by ongoing management of metastatic colon cancer. ? HPI: The patient is a 62 yo male who developed abdominal pain around June 2014. His symptoms progressively worsened throughout the spring. He also began losing weight in the spring and this culminated in a hospitalization for what was thought to be diverticulitis in December 2014. He underwent a CT scan which was thought to demonstrated a left lower quadrant abscess. The drain was placed and he was treated with antibiotic treatment. Pain flared and a repeat CT scan on 01/24/15 demonstrated marked inflammatory phlegmonous changes of the proximal sigmoid colon. He therefore underwent a colonoscopy and sigmoid colon resection with lymph node dissection on 01/29/2015. The sigmoid colon was noted to be adherent to the anterior abdominal wall and small bowel. The final pathology demonstrated an invasive moderately differentiated adenocarcinoma, tumor extension through the colonic wall and involving the muscularis propria of the small bowel. The proximal margin resection had a small focus of tumor present at the serosal surface. None of 25 lymph nodes were involved. The patient went on to receive 12 cycles FOLFOX which she finished on 09/13/2015. ? Surveillance CT scan the abdomen and pelvis on January 06, 2016 demonstrated a small omental nodules. He was treated with 4 cycles of FOLFIRI and then underwent exploratory laparotomy, excision of peritoneal/liver/small bowel/mesenteric nodules, heated intraperitoneal chemotherapy (HIPEC) administration for 100 minutes, cystoscopy with bilateral ureteral stent placement on 05/22/2016. His [place] prescription history shows recent MS Contin 15 mg every 12 hours #14, and [place] 5/325#28 both filled on 06/21/2018 at the time of his last hospital discharge. Prior to this, had only one prescription approximately one year ago for [place] #15. ? Pathology: 1. Small bowel peritoneal nodules, excision (A) - Organizing fibrous adhesions. - No evidence of malignancy. 2. Left liver nodule, biopsy (B) - Adenocarcinoma in liver, consistent with colonic primary. 3. Omentum, excision (C) - Infiltrating adenocarcinoma, consistent with colonic primary. 4. Left upper quadrant abdominal wall, biopsy (D) - Infiltrating adenocarcinoma, consistent with colonic primary. 5. Pelvic nodule and omentum, excision (E) - Infiltrating adenocarcinoma, consistent with colonic primary. - One lymph node, negative for malignancy (0/1). 6. Ileal nodule, excision (F) - Infiltrating adenocarcinoma, consistent with colonic primary. ? In end of July/first week of August this year he underwent repeat staging workup (CT and PET) which unfortunately showed liver metastasis and intra-abdominal metastases. ? He recently started back on chemotherapy with FOLFIRI and cetuximab. He's had 2 cycles to date. ? Previous therapy: 1) FOLFOX ?12 cycles completed 09/13/2015. 2) FOLFIRI x4 cycles. 3) Exploratory lap 04/2016 with HIPEC (mitomycin). ? Current therapy: 1) FOLFIRI (with Vectibix--side effects permitting). Current Facility-Administered Medications: oxyCODONE IR 5 mg tab(s) (ROXICODONE) 5 mg ORAL q 3 H PRN Dion Carroll Bibi oxyCODONE IR 10 mg tab(s) (ROXICODONE) 10 mg ORAL q 3 H PRN Dion Carroll Bibi 10 mg at 07/01/18 0654 senna-docusate 8.6-50 mg 1 tablet (SENNA-S) 1 tablet ORAL BID Lai (Res) Ramirez 1 tablet at 07/01/18 2314 polyethylene glycol 3350 17 g packet (MIRALAX, GLYCOLAX) 17 g ORAL DAILY Lai (Res) Ramirez 17 g at 07/01/18 0901 bisacodyl 10 mg suppository (DULCOLAX) 10 mg RECTAL DAILY PRN Lai (Res) Ramirez ketorolac 15 mg injection (TORADOL) 15 mg INTRAVENOUS q 6 H Tripp (Res) Sheridan 15 mg at 07/02/18 0436 pantoprazole 40 mg injection (PROTONIX) 40 mg INTRAVENOUS DAILY (6 AM) Maria Alejandra (Res) Maggei 40 mg at 07/02/18 0436 heparin 100 unit/mL 200-500 Units injection 200-500 Units INTRAVENOUS PRN Trixie (Res) MD Jonny 500 Units at 07/02/18 0436 minocycline 100 mg cap(s) (MINOCIN, DYNACIN) 100 mg ORAL BID Lai (Res) Ramirez 100 mg at 07/01/18 2300 acetaminophen 975 mg CUP (TYLENOL) 975 mg ORAL QID Lai (Res) Ramirez 975 mg at 07/01/18 0859 Or acetaminophen 975 mg tab(s) (TYLENOL) 975 mg ORAL QID Lai (Res) Ramirez 975 mg at 07/01/18 1233 HYDROmorphone HCl 1 mg injection (DILAUDID) 1 mg INTRAVENOUS q 3 H PRN Dion Carroll Bibi 1 mg at 07/01/18 2150 prochlorperazine 5 mg injection (COMPAZINE) 5 mg INTRAVENOUS q 6 H PRN Tripp (Res) Sheridan 5 mg at 07/01/18 2105 potassium chloride ER 40 mEq tab(s) (K-DUR, KLOR-CON) 40 mEq ORAL BID Esteban (Res) Gastaldo, DO 40 mEq at 07/01/18 0900 enoxaparin 40 mg injection (LOVENOX) 40 mg SUBCUTANEOUS DAILY Esteban (Res) Gastaldo, DO 40 mg at 07/01/18 0900 NaCl 0.9% 10 mL 10 mL INTRAVENOUS q 12 H Esteban (Res) Gastaldo, DO 10 mL at 07/01/18 2107 NaCl 0.9% 20 mL 20 mL INTRAVENOUS PRN Esteban (Res) Gastaldo, DO 20 mL at 07/02/18 0442 ondansetron 4 mg tab(s) (ZOFRAN) 4 mg ORAL q 6 H PRN Esteban (Res) Gastaldo, DO Or ondansetron (PF) 4 mg injection (ZOFRAN) 4 mg INTRAVENOUS q 6 H PRN Esteban (Res) Gastaldo, DO 4 mg at 07/01/18 1728 Prescriptions Prior to Admission: XARELTO 20 mg tablet TAKE ONE TABLET BY MOUTH DAILY WITH DINNER. Disp: 30 tablet Rfl: 5 Past Week at Unknown time promethazine (PHENERGAN) 25 mg tablet Take 1 tablet by mouth every 6 hours as needed. FOR NAUSEA (Patient not taking: Reported on 06/26/2018 ) Disp: 20 tablet Rfl: 2 Not Taking dexamethasone (DECADRON) 4 mg tablet TAKE ONE TABLET BY MOUTH TWICE DAILY (Patient not taking: Reported on 06/26/2018) Disp: 10 tablet Rfl: 5 Not Taking minocycline (MINOCIN, DYNACIN) 100 mg capsule Take 100 mg by mouth twice daily. Disp: Rfl: 3 Not Taking potassium chloride ER (K-DUR, KLOR-CON) 20 mEq tablet Take 1 tablet by mouth three times daily. (Patient taking differently: Take 40 mEq by mouth twice daily. ) Disp: 90 tablet Rfl: 2 ondansetron (ZOFRAN) 8 mg tablet Take 1 tablet by mouth every 8 hours as needed for Nausea/Vomiting. (Patient not taking: Reported on 06/26/2018 ) Disp: 30 tablet Rfl: 2 Not Taking Social History Marital status: Spouse name: Years of education: Number of children: Social History Main Topics Smoking status: Former Smoker Packs/day: 0.50 Years: 10.00 Types: Cigarettes Quit date: 01/21/1990 Smokeless tobacco: Never Used Alcohol use: Yes Comment: beer once in awhile Drug use: No Other Topics Concern Caffeine Concern Yes Special Diet No Exercise No FAMILY HISTORY Problem Relation Age of Onset - Colon Cancer Paternal Grandfather 83 - Diabetes Sister PAST SURGICAL HISTORY Procedure Laterality Date - APPENDECTOMY at age 8 - LAP COLECTOMY, 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 with en bloc SB resection - PAST SURGICAL HISTORY OF 05/22/16 wedge liver bx, ileum wedge rsxn, omentectomy, debulking, HIPEC ROS: All of the following reviewed and negative except as noted below: GENERAL: no fever, chills, sweats, weight loss, fatigue, generalized weakness HEENT: no headache, vision changes, eye discomfort, hearing change, ear discomfort, sinus pain, nasal discharge or congestion, oral lesions, soreness, dental problem NECK: no adenopathy, discomfort, change in ROM CHEST: no shortness of breath, dyspnea on exertion, wheezing, cough, sputum production or chest pain HEART: no chest pain, palpitations, syncope ABDOMEN: no nausea, vomiting, constipation, diarrhea, abdominal pain : no dysuria, urgency, frequency, history of stones, incontinence NEURO: Tolerating oxycodone better without confusion. Was having some confusion and sedation with IV Dilaudid yesterday. EXTREMITIES: no new pain, edema, change in ROM HEME: no new adenopathy, bruises, petechiae PSYCH: no depression, anxiety, agitation PHYSICAL EXAMINATION: see below for new or abnormal findings BP 138/84 Pulse 89 Temp 37.1 ?C (98.8 ?F) (Temporal Artery) Resp 18 Ht 185.4 cm (6' 1) Wt 86.5 kg (190 lb 11.2 oz) SpO2 93% BMI 25.16 kg/m? BMI 25.16 kg/(m2) GENERAL: well nourished and developed; no acute distress; alert and oriented x 3; intact judgement and insight HEENT: no evidence of trauma; cranial nerves intact; eyes clear EOMI; no hearing deficits apparent; nasal passages unremarkable; throat and mucous membranes clear NECK: supple without lymphadenopathy; no JVD; no thyromegaly CHEST: clear bilaterally to auscultation; normal chest movement; no rales or rhonchi HEART: regular rate and rhythm, normal S1 and S2, no murmurs, clicks, rubs, or gallops ABDOMEN: soft; nondistended; bowel sounds present; no hepatomegaly; no splenomegaly; mild tender +ALBERTA serosanguinous EXTREMITIES: no evidence of clubbing; no cyanosis; no deformity; no joint effusion; no edema NEURO: cranial nerves intact; no focal deficits; no confusion; no tremor; sensorium normal SKIN: no rash; no skin breakdown; no decubitus lesions HEME: no bruising; no adenopathy PSYCH: no evidence of depression; no anxiety; no agitation; no apparent hallucinations ABNORMAL/NEW FINDINGS: NONE CBC: Recent Labs 07/02/18 0445 WBC 12.77* RBC 2.99* HB 9.0* HCT 28.0* PLT 409* MCV 93.6 MCH 30.1 MPV 9.1 RDW 14.4 CMP: No results for input(s): NA, K, CHLOR, CO2, BUN, CREAT, GLUC, TPROT, CA, MG, ALBUMIN, TBILI, ALKPHOS, ALT, AST, ANION in the last 24 hours. Heme: No results for input(s): RETICP, ABSRETIC, LD, SARAH, FE, TIBC, TRANSFERSAT in the last 24 hours. 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) Carcinomatosis (Hcc) OARRS: 06/21/18 MSContin 15mg #14 Dr Trinh 06/21/18 [place] 5/325 #28 Pain Regimen Use/Notes (Opiate use last 24 hrs): Acetaminophen 975 mg qid?x one Dilaudid 1mg IV q3h prn x one dose Toradol 15mg IV q6h x 3 doses Oxycodone 5-10mg q3h prn x 1 PLAN: Continue Dilaudid IV option 2/2 some nausea; minimal use Coninue Oxycodone 5mg po q3h prn moderate pain, 10mg q3h prn severe pain FIELD [employer]IEF using MSContin 15mg BID AND [place]-no longer taking, pt was trying to get off opiates FIELD [employer] CHIEF Pt goal minimize opiates; Toradol added 07/01- beneficial per pt Increase activity as tolerated July Borrego MD PROGRESS Observed: 07/02/2018 Status: COMPLETED Source: [place] 8:05 AM CLINIC OTHER CAMPUS REPOSITORY HNO ID: [id number] Author: Justin Dhillon Service: (none) Author Type: Physician Type: Progress Notes Filed: 07/02/2018 8:16 AM Note Text: Patient referred by: Geraldo Stone DO [address] [facility] [id number] Patient presents with: Established Patient: Mr. Magana is here today for a small bowel mass. HPI: A 62-year-old male status post sigmoid colectomy for perforated colon cancer followed by HIPEC. He currently has had a recurrence in his abdominal wall. He has been receiving chemotherapy but this is had to be stopped several times due to toxicity. He currently has pain at the abdominal region. He has nausea but no vomiting. He has been hospitalized several times for small bowel obstruction. He is here to discuss possible surgical options. He is taking in very little by mouth. He has severe pain at the epigastric mass. He has no fevers or chills. He denies any jaundice. His last chemotherapy was 3 weeks ago. PAST MEDICAL HISTORY Diagnosis Date - Colon cancer (HCC) PAST SURGICAL HISTORY Procedure Laterality Date - APPENDECTOMY at age 8 - LAP COLECTOMY, 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 with en bloc SB resection - PAST SURGICAL HISTORY OF 05/22/16 wedge liver bx, ileum wedge rsxn, omentectomy, debulking, HIPEC FAMILY HISTORY Problem Relation Age of Onset - Colon Cancer Paternal Grandfather 83 - Diabetes Sister Social History Marital status: Spouse name: Years of education: Number of children: Social History Main Topics Smoking status: Former Smoker Packs/day: 0.50 Years: 10.00 Types: Cigarettes Quit date: 01/21/1990 Smokeless tobacco: Never Used Alcohol use: Yes Comment: beer once in awhile Drug use: No Other Topics Concern Caffeine Concern Yes Special Diet No Exercise No No current facility-administered medications for this visit. No current outpatient prescriptions on file. Facility-Administered Medications Ordered in Other Visits: acetaminophen 975 mg CUP (TYLENOL) 975 mg ORAL QID Or acetaminophen 975 mg tab(s) (TYLENOL) 975 mg ORAL QID bisacodyl 10 mg suppository (DULCOLAX) 10 mg RECTAL DAILY PRN enoxaparin 40 mg injection (LOVENOX) 40 mg SUBCUTANEOUS DAILY heparin 100 unit/mL 200-500 Units injection 200-500 Units INTRAVENOUS PRN HYDROmorphone HCl 1 mg injection (DILAUDID) 1 mg INTRAVENOUS q 3 H PRN ketorolac 15 mg injection (TORADOL) 15 mg INTRAVENOUS q 6 H minocycline 100 mg cap(s) (MINOCIN, DYNACIN) 100 mg ORAL BID NaCl 0.9% 10 mL 10 mL INTRAVENOUS q 12 H NaCl 0.9% 20 mL 20 mL INTRAVENOUS PRN ondansetron 4 mg tab(s) (ZOFRAN) 4 mg ORAL q 6 H PRN Or ondansetron (PF) 4 mg injection (ZOFRAN) 4 mg INTRAVENOUS q 6 H PRN oxyCODONE IR 10 mg tab(s) (ROXICODONE) 10 mg ORAL q 3 H PRN oxyCODONE IR 5 mg tab(s) (ROXICODONE) 5 mg ORAL q [address] 40 mg tab(s) (PROTONIX) 40 mg ORAL DAILY (6 AM) Or pantoprazole 40 mg granules for suspension (PROTONIX) 40 mg ORAL DAILY (6 AM) polyethylene glycol 3350 17 g packet (MIRALAX, GLYCOLAX) 17 g ORAL DAILY PRN potassium chloride ER 40 mEq tab(s) (K-DUR, KLOR-CON) 40 mEq ORAL BID prochlorperazine 5 mg injection (COMPAZINE) 5 mg INTRAVENOUS q 6 H PRN senna-docusate 8.6-50 mg 1 tablet (SENNA-S) 1 tablet ORAL BID ALLERGIES No Known Allergies REVIEW OF SYSTEMS: GENERAL: No weight loss, malaise or fevers GI: Negative for nausea , vomiting, diarrhea, constipation and signs of jaundice Positive for abdominal pain epigastrium PHYSICAL EXAM: BP 110/78 Pulse 96 Ht 6' 0 (1.83m) Wt 190 lb (86.2kg) SpO2 95% BMI 25.76 kg/(m2). GENERAL APPEARANCE: Well appearing, alert, in no acute distress, well-hydrated, well nourished.. ABDOMEN: Abdomen is soft. There is a palpable recurrence at the epigastric region. There is also a recurrence at the suprapubic region. There are no signs of infection or skin necrosis. NEURO: Alert, oriented x3, no asterixis, speech clear and articulate and HEDRICK DATA: Diagnostic tests reviewed for today's visit: Most recent imaging A total of 25 minutes was spent in direct patient contact.Greater than 50% of the direct patient contact time was spent in counseling or coordination of care. ASSESSMENT / PLAN 1. Peritoneal carcinomatosis (HCC) I reviewed his imaging. I discussed this case with his medical oncologist. He does appear to have resectable disease in his abdomen. This would necessitate abdominal wall resection as well as small bowel resection and possible splenectomy. Due to his severe pain and we will direct him into the hospital for IV fluid hydration and bowel prep. I'll make arrangements to have him admitted. Justin Dhillon MD PROGRESS Observed: 07/02/2018 Status: COMPLETED Source: [place] 6:41 AM [facility] REPOSITORY HNO ID: [id number] Author: Lai (Sammie) James Service: General Surgery Author Type: Resident Type: Progress Notes Filed: 07/02/2018 6:54 AM Note Text: Attestation signed by Justin Dhillon at 07/02/2018 9:55 PM Attending Note I personally saw and examined the patient. I reviewed the resident's note. I agree with the resident's assessment and plan with the following revisions and/or additions: poss dc home tomorrow if pain controlled Signature: Justin Dhillon MD Date: 07/02/2018 Time: 9:54 PM [facility] Progress Note SERVICE DATE: 07/02/2018 [facility] Service Pager: For questions or concerns Mon-Fri 6a-5p please page [phone]. After 5pm and on Weekends and Holidays, please page [phone] if in ICU or [phone] if on RNF. SUBJECTIVE: Patient states he's feeling better today +N/V yesterday and overnight, slowly improving Tolerating diet DIET GASTRO INTESTINAL Nausea Yes Emesis Yes Flatus Yes Bowel movement Yes Pain Controlled Yes Ambulating Yes OBJECTIVE: Vitals: Temp (24hrs), Av ?C (98.6 ?F), Min:36.7 ?C (98.1 ?F), Max:37.1 ?C (98.8 ?F) BP 138/84 Pulse 89 Temp 37.1 ?C (98.8 ?F) (Temporal Artery) Resp 18 Ht 185.4 cm (6' 1) Wt 86.5 kg (190 lb 11.2 oz) SpO2 93% BMI 25.16 kg/m? O2 Therapy: Room Air IANDO: Date 07/01/18699 - 07/02/1865807/02/18 07 - 07/03/18 0659 Shift 9940-4049 9729-8565 1751-4763 24 Hour Total 6835-5450 7472-8176 5122-6529 24 Hour Total I N T A K E PO 240 120 360 PO 240 120 360 Shift Total 240 120 360 O U T P U T Urine 725 184 821 5662 Void (ml) 725 703 847 9898 Urine Not Saved. 1 x 1 x Emesis 50 50 100 Emesis (ml) 50 50 100 Tubes 50 50 40 140 Drain/Tube Output (Drain/Tube 06/28/18 1857 Assessment Michael Odonnell Right Abdomen Drain #1) 50 50 40 140 Shift Total 825 119 011 4318 Weight (kg) 86.5 86.5 86.5 86.5 86.5 86.5 86.5 86.5 MEDICATIONS Current Facility-Administered Medications: oxyCODONE IR 5 mg tab(s) (ROXICODONE) 5 mg ORAL q 3 H PRN oxyCODONE IR 10 mg tab(s) (ROXICODONE) 10 mg ORAL q 3 H PRN senna-docusate 8.6-50 mg 1 tablet (SENNA-S) 1 tablet ORAL BID polyethylene glycol 3350 17 g packet (MIRALAX, GLYCOLAX) 17 g ORAL DAILY bisacodyl 10 mg suppository (DULCOLAX) 10 mg RECTAL DAILY PRN ketorolac 15 mg injection (TORADOL) 15 mg INTRAVENOUS q 6 H pantoprazole 40 mg injection (PROTONIX) 40 mg INTRAVENOUS DAILY (6 AM) heparin 100 unit/mL 200-500 Units injection 200-500 Units INTRAVENOUS PRN minocycline 100 mg cap(s) (MINOCIN, DYNACIN) 100 mg ORAL BID acetaminophen 975 mg CUP (TYLENOL) 975 mg ORAL QID Or acetaminophen 975 mg tab(s) (TYLENOL) 975 mg ORAL QID HYDROmorphone HCl 1 mg injection (DILAUDID) 1 mg INTRAVENOUS q 3 H PRN prochlorperazine 5 mg injection (COMPAZINE) 5 mg INTRAVENOUS q 6 H PRN potassium chloride ER 40 mEq tab(s) (K-DUR, KLOR-CON) 40 mEq ORAL BID enoxaparin 40 mg injection (LOVENOX) 40 mg SUBCUTANEOUS DAILY NaCl 0.9% 10 mL 10 mL INTRAVENOUS q 12 H NaCl 0.9% 20 mL 20 mL INTRAVENOUS PRN ondansetron 4 mg tab(s) (ZOFRAN) 4 mg ORAL q 6 H PRN Or ondansetron (PF) 4 mg injection (ZOFRAN) 4 mg INTRAVENOUS q 6 H PRN Labs: Recent Labs 07/02/18 0445 07/01/18 0312 NA 138 138 K 3.8 4.0 CHLOR 106 107 CO2 25 25 BUN 13 15 CREAT 0.91 0.94 GLUC 78 83 ANION 11 10 CA 7.7* 7.6* WBC 12.77* 11.02* HB 9.0* 8.5* HCT 28.0* 27.1* PLT 409* 317 Exam: GENERAL: No distress, Alert NEURO: AANDOx3, CN II-XII grossly intact HEENT: normocephalic, atraumatic LUNGS: Unlabored breathing CARDIAC: Regular rate and rhythm as above ABDOMEN: Soft, mild D, aTTP, Prevena intact, ALBERTA serosang EXTREMITIES: HEDRICK, No deformities, No edema SKIN: Skin color, texture, turgor normal, No rashes or lesions ASSESSMENT AND PLAN: Active Hospital Problems Diagnosis Date Noted - Carcinomatosis (HCC) 06/26/2018 Overview Note: Added automatically from request for surgery [id number] 62 year old male with Metastatic Sigmoid Colon cancer and Carcinomatosis s/p Sigmoidectomy, Wedge Liver Rxn, SBR, Omentectomy, Debulking, and HIPEC in 2014 and 2016 ? - Soft GI - Clamp G tube - pain ctl per pain mgmt - ALBERTA to bulb sxn - Prevena - ambulate - Leukocytosis without SIRS - acute blood loss anemia on chronic anemia - stable, monitor - IS SIGNATURE: Lai Ramirez MD PATIENT NAME: Becca Magana DATE: July 02, 2018 TIME: 6:41 AM Pager: [facility] General [facility] Service Pager: For questions or concerns Mon-Fri 6a-5p please page [phone]. After 5pm and on Weekends and Holidays, please page [phone] if in ICU or [phone] if on RNF. HEMOGRAM/DIFF Collected: 07/02/2018 Status: F Source: [facility] 4:45 AM HEALTH SYSTEM REPOSITORY TYPE CODE TESTS RESULT OUT OF REFERENCE UNITS RANGE LAB WBC(LOINC) 4.23-9.07 thou/cmm WBC High 12.77 LAB RBC(LOINC) 4.63-6.08 mil/cmm Low RBC 2.99 LAB HGB(LOINC) 13.7-17.5 g/dL Low Hgb 9.0 LAB HCT(LOINC) 40.1-51.0 % Low Hct 28.0 LAB MCV(LOINC) 83.2-95.6 fl MCV 93.6 LAB MCH(LOINC) 25.7-32.2 pg MCH 30.1 LAB MCHC(LOINC 32.3-36.5 % ) Low MCHC 32.1 LAB RDW(LOINC) 11.6-14.4 % RDW 14.4 LAB RDWSD(LOIN 36.1-45.8 fl C) RDW SD High 49.9 LAB PLT(LOINC) 141-365 thou/cmm Platelet High 409 LAB MPV(LOINC) 8.7-12.0 fl MPV 9.1 LAB NRBCR(LOIN 0.0-0.2 % C) High Nucleated RBC % 0.3 LAB SEG(LOINC) % Seg Neutrophil 78.0 LAB IGRE(LOINC % ) Immature Grans 1.00 LAB LYMPH(LOIN % C) Lymphocyte 6.7 LAB MNO(LOINC) % Monocyte 11.5 LAB EOSIN(LOIN % C) Eosinophil 2.6 LAB BASO(LOINC % ) Basophil 0.2 LAB NRBCA(LOIN 0.00-0.01 thou/cmm C) High Nucleated RBC 0.04 Absolute LAB SEGN(LOINC 1.78-5.38 thou/cmm ) Abs. High Neut (ANC) 9.96 LAB IGAB(LOINC 0.00-0.05 thou/cmm ) Abs High Immature Grans 0.13 LAB LYMN(LOINC 0.84-2.85 thou/cmm ) Abs. Lymph 0.86 LAB MONON(LOIN 0.30-0.82 thou/cmm C) Abs. High [place] 1.47 LAB EOSN(LOINC 0.04-0.54 thou/cmm ) Abs. Eosin 0.33 LAB BASON(LOIN 0.01-0.08 thou/cmm C) Abs. Baso 0.03 Performed By: #### [id number] #### [place] [id number] BASIC PANEL Collected: 07/02/2018 Status: F Source: [facility] 4:45 AM HEALTH SYSTEM REPOSITORY TYPE CODE TESTS RESULT OUT OF REFERENCE UNITS RANGE LAB NA(LOINC) 136-145 mEq/L Sodium Blood 138 LAB K(LOINC) 3.5-5.1 mEq/L Potassium Blood 3.8 LAB CL(LOINC) 98-107 mEq/L Chloride Blood 106 LAB CO2(LOINC) 21-32 mEq/L CO2 Blood 25 LAB GLU(LOINC) 70-99 mg/dL Glucose Blood 78 LAB BUN(LOINC) 7-18 mg/dL BUN Blood 13 LAB CREA(LOINC 0.67-1.17 mg/dL ) Creatinine Blood 0.91 LAB CA(LOINC) 8.5-10.1 mg/dL Low Calcium Blood 7.7 LAB ANGAP(LOIN 8-16 C) Anion Gap 11 Performed By: #### P8 #### [facility] [address] [place] [address] NUTRITION Observed: 07/01/2018 Status: COMPLETED Source: [place] 1:31 PM CLINIC OTHER CAMPUS REPOSITORY HNO ID: [id number] Author: Mira Livingston RD Service: Nutrition Therapy Author Type: Registered Dietitian Type: Nutrition Filed: 07/01/2018 1:56 PM Note Text: NUTRITION THERAPY PROGRESS NOTE SERVICE DATE: 07/01/2018 SERVICE TIME: 1130am RECOMMENDED DIAGNOSIS: UNABLE TO IDENTIFY MALNUTRITION AT THIS TIME per Registered Dietitian on 06/28/18 NUTRITION CARE PLAN Problem, Etiology and Signs/Symptoms: Increased nutrient needs (protein/kcal) related to elevated metabolic demand as evidenced by history of cancer with suspicion of lung mets. ? Intervention: 1. Continue to monitor and encourage intake 2. Start nutrient dense supplements------------->Ensure Enlive TID for add'l 350kcals, 20gms pro 3. Monitor need for nutrition support if unable to tolerated GI soft diet Coordination of Care: d/w RN Monitor and Evaluation: Goal: Meet >75% of estimated needs Monitor fluid/electrolyte balance Monitor labs, I/Os, vital signs, weight Discharge Nutrition Recommendations: To be determined Reason for consult: Follow up po intake Per HPI: 62 year old M with a PMHx colon cancer status post sigmoidectomy in January 2015. At the time, tumor extended into?to the abdominal wall involving the muscularis propria of the small bowel. Patient underwent chemotherapy with FOLFOX finished in August 2015. CT scan in January 2016 showed?small peritoneal omental metastases. Patient underwent additional chemotherapy with FOLFIRI, exploratory laparotomy and further resection of residual tumor with HIPEC intraperitoneal chemotherapy (mitomycin C) and bilateral ureteral stent placement on May 22, 2016. Remained free of disease until August 2017. Repeat CT scan showed liver metastasis along with intra-abdominal metastasis. He started on chemotherapy FOLFIRI with cetuximab since spring 2017. His last cycle of chemotherapy was 3?weeks ago. He presented to [facility] ED on 06/20 with progressively worsening severe nonradiating vance-umbilical pain, concern for bowel obstruction, was managed conservatively and subsequently ?discharged. ? 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 G-tube clamped. Transitioned to GI soft diet, but with very poor intake d/t nausea. No bowel fxn yet. Willing to try supplements. Eating no > 20% of meals. Poor pain control per pt. Current Diet Order DIET GASTRO INTESTINAL Order Specific Question: Gastro Intestinal Answer: GI SOFT-FIBER CONTROLLED Supplement 1 Frequency: 7. BREAKFAST, LUNCH, DINNER Supplement 1: ENSURE CLEAR APPLE There are no questions and answers to display. There are no questions and answers to display. Lines and Drains: Implanted Vascular Access Device Single Port 06/30/18 1106 Left (Active) Peripheral 06/28/18 1330 Assessment Right Wrist 18 Gauge (Active) GI Feed/Drain 06/28/18 1806 Assessment Gastrostomy Left Abdomen (Active) Drain/Tube 06/28/18 1857 Assessment Michael Odonnell Right Abdomen Drain #1 (Active) Height: 185.4 cm (6' 1) Admission Weight: 86.6 kg (190 lb 15.8 oz) Current Weight: 86.5 kg (190 lb 12.8 oz) Body mass index is 25.17 kg/m?. normal Recent Labs 07/01/18 0312 06/29/18 0335 GLUC 83 < > 186* BUN 15 < > 8 CREAT 0.94 < > 1.00 NA 138 < > 137 K 4.0 < > 5.2* CHLOR 107 < > 105 CO2 25 < > 23 P -- -- 3.7 HB 8.5* < > 10.9* HCT 27.1* < > 34.1* WBC 11.02* < > 16.99* MG -- -- 2.1 < > = values in this interval not displayed. Current Facility-Administered Medications: oxyCODONE IR 5 mg tab(s) (ROXICODONE) 5 mg ORAL q 3 H PRN oxyCODONE IR 10 mg tab(s) (ROXICODONE) 10 mg ORAL q 3 H PRN senna-docusate 8.6-50 mg 1 tablet (SENNA-S) 1 tablet ORAL BID polyethylene glycol 3350 17 g packet (MIRALAX, GLYCOLAX) 17 g ORAL DAILY bisacodyl 10 mg suppository (DULCOLAX) 10 mg RECTAL DAILY PRN ketorolac 15 mg injection (TORADOL) 15 mg INTRAVENOUS q 6 H minocycline 100 mg cap(s) (MINOCIN, DYNACIN) 100 mg ORAL BID acetaminophen 975 mg CUP (TYLENOL) 975 mg ORAL QID Or acetaminophen 975 mg tab(s) (TYLENOL) 975 mg ORAL QID HYDROmorphone HCl 1 mg injection (DILAUDID) 1 mg INTRAVENOUS q 3 H PRN prochlorperazine 5 mg injection (COMPAZINE) 5 mg INTRAVENOUS q 6 H PRN potassium chloride ER 40 mEq tab(s) (K-DUR, KLOR-CON) 40 mEq ORAL BID enoxaparin 40 mg injection (LOVENOX) 40 mg SUBCUTANEOUS DAILY NaCl 0.9% 10 mL 10 mL INTRAVENOUS q 12 H NaCl 0.9% 20 mL 20 mL INTRAVENOUS PRN ondansetron 4 mg tab(s) (ZOFRAN) 4 mg ORAL q 6 H PRN Or ondansetron (PF) 4 mg injection (ZOFRAN) 4 mg INTRAVENOUS q 6 H PRN Date 06/30/18699 - 07/01/1865807/01/18 07 - 07/02/18 0659 Shift 7237-5892 0912-7027 1728-9940 24 Hour Total 9822-7811 9125-2965 5576-0883 24 Hour Total I N T A K E PO 100 100 PO 100 100 IV 2100 1400 1000 4500 D5 LR 1600 1600 NS 0.9% 500 1400 1000 2900 Shift Total 2200 1400 1000 4600 O U T P U T Urine 100 150 235 485 725 725 Void (ml) 100 75 175 725 725 Amount Voided Before Bladder Scan 75 235 310 Urine Incontinence/Not Saved 6 x 6 x Urine Not Saved. 1 x 1 x 2 x Emesis 50 50 Emesis (ml) 50 50 Tubes 50 30 80 50 50 Drain/Tube Output (Drain/Tube 06/28/18 1857 Assessment Michael Odonnell Right Abdomen Drain #1) 50 30 80 50 50 Shift Total 100 200 265 565 825 825 Weight (kg) 89 89 86.5 86.5 86.5 86.5 86.5 86.5 Surgical Incision 06/28/18 2250 Abdomen - Midline (Active) Dressing Status Initial Post-Op Dressing Intact;Other: See Comment 07/01/2018 9:00 AM Frequency of Dressing Change Every 3 Days 06/29/2018 7:45 PM Dressing Change Due 06/30/18 06/28/2018 10:50 PM Dressing /Treatment Type Negative Pressure Wound Therapy 07/01/2018 9:00 AM Incision Closures Other: See Comment 06/28/2018 10:50 PM Drainage Description None 07/01/2018 9:00 AM Drainage Amount None 07/01/2018 9:00 AM Edges Other: See Comment 06/28/2018 10:50 PM Hematoma No 07/01/2018 9:00 AM Number of days: 2 MNT Billing Type: Re-assess/15 min 2 units SIGNATURE: Mira Livingston RD PATIENT NAME: Becca Magana DATE: July 01, 2018 TIME: 1:32 PM PAGER: [id number] PROGRESS Observed: 07/01/2018 Status: COMPLETED Source: [place] 7:45 AM CLINIC OTHER CAMPUS REPOSITORY HNO ID: [id number] Author: Dion Mtz Service: Pain Management Author Type: Physician Type: Progress Notes Filed: 07/01/2018 8:53 AM Note Text: BECCA MAGANA 62 year old PAIN CONSULTATION: Abdominal pain, colon cancer Interval HPI 12/10 rating pain 5/10. Overall better 12/8 Pain currently 10/10 in severity, improves to perhaps 8/10 at its best, inadequately relieved, Sharp/aching, aggravated by any movement, palpation. Subjective HPI: 62-year-old male, status post surgery and 06/28/2018 at which time he underwent resection of abdominal wall masses ?3, SBR ?3 with 1 anastomosis, splenectomy, repair of diaphragmatic defect, insertion of left chest tube, gastric duodenostomy tube placement, bilateral myocutaneous flaps, placement of retrocrural mass, with findings of masses of anterior and right lateral abdominal wall, splenic lesions with diaphragmatic extension, now resected. He had presented to [facility] Emergency department on 06/20 with progressive nonradiating periumbilical pain, with findings of concern for bowel obstruction that was managed conservatively. He was seen by Dr. Dhillon on the day of admission who have directly admitted secondary to persistent and worsening abdominal pain, and sought mechanical cause of partial small bowel obstruction. At presentation, he was able to eat, was having bowel movements without bleeding, no nausea, emesis, and also denied pulmonary, and complaints. This patient has an extensive history of metastatic colon carcinoma. He is followed by Dr. Stone in [place] who summarizes his history with his malignancy as follows: 1) Metastatic recurrence of stage III colon cancer. MSI stable. BRAF - A sequence change: [id number] ([id number]) was detected at approximately 48% allele proportion. [Reference sequence: ([id number])]. KRAS - No variant detected [Reference?sequence: ([id number]_004985.4)]. NRAS - No variant detected [Reference sequence: (NM_[id number])]. ? Patient referred by ongoing management of metastatic colon cancer. ? HPI: The patient is a 62 yo male who developed abdominal pain around June 2014. His symptoms progressively worsened throughout the spring. He also began losing weight in the spring and this culminated in a hospitalization for what was thought to be diverticulitis in December 2014. He underwent a CT scan which was thought to demonstrated a left lower quadrant abscess. The drain was placed and he was treated with antibiotic treatment. Pain flared and a repeat CT scan on 01/24/15 demonstrated marked inflammatory phlegmonous changes of the proximal sigmoid colon. He therefore underwent a colonoscopy and sigmoid colon resection with lymph node dissection on 01/29/2015. The sigmoid colon was noted to be adherent to the anterior abdominal wall and small bowel. The final pathology demonstrated an invasive moderately differentiated adenocarcinoma, tumor extension through the colonic wall and involving the muscularis propria of the small bowel. The proximal margin resection had a small focus of tumor present at the serosal surface. None of 25 lymph nodes were involved. The patient went on to receive 12 cycles FOLFOX which she finished on 09/13/2015. ? Surveillance CT scan the abdomen and pelvis on January 06, 2016 demonstrated a small omental nodules. He was treated with 4 cycles of FOLFIRI and then underwent exploratory laparotomy, excision of peritoneal/liver/small bowel/mesenteric nodules, heated intraperitoneal chemotherapy (HIPEC) administration for 100 minutes, cystoscopy with bilateral ureteral stent placement on 05/22/2016. His [place] prescription history shows recent MS Contin 15 mg every 12 hours #14, and [place] 5/325#28 both filled on 06/21/2018 at the time of his last hospital discharge. Prior to this, had only one prescription approximately one year ago for [place] #15. ? Pathology: 1. Small bowel peritoneal nodules, excision (A) - Organizing fibrous adhesions. - No evidence of malignancy. 2. Left liver nodule, biopsy (B) - Adenocarcinoma in liver, consistent with colonic primary. 3. Omentum, excision (C) - Infiltrating adenocarcinoma, consistent with colonic primary. 4. Left upper quadrant abdominal wall, biopsy (D) - Infiltrating adenocarcinoma, consistent with colonic primary. 5. Pelvic nodule and omentum, excision (E) - Infiltrating adenocarcinoma, consistent with colonic primary. - One lymph node, negative for malignancy (0/1). 6. Ileal nodule, excision (F) - Infiltrating adenocarcinoma, consistent with colonic primary. ? In end of July/first week of August this year he underwent repeat staging workup (CT and PET) which unfortunately showed liver metastasis and intra-abdominal metastases. ? He recently started back on chemotherapy with FOLFIRI and cetuximab. He's had 2 cycles to date. ? Previous therapy: 1) FOLFOX ?12 cycles completed 09/13/2015. 2) FOLFIRI x4 cycles. 3) Exploratory lap 04/2016 with HIPEC (mitomycin). ? Current therapy: 1) FOLFIRI (with Vectibix--side effects permitting). Current Facility-Administered Medications: NaCl 0.9% iv infusion 125 mL/hr INTRAVENOUS CONTINUOUS Lai (Res) Ramirez minocycline 100 mg cap(s) (MINOCIN, DYNACIN) 100 mg ORAL BID Lai (Res) Ramirez HYDROmorphone HCl 1-1.5 mg injection (DILAUDID) 1-1.5 mg INTRAVENOUS q 3 H PRN Dion Carroll Bibi 1 mg at 06/30/18 0659 prochlorperazine 5 mg injection (COMPAZINE) 5 mg INTRAVENOUS q 6 H PRN Tripp (Res) Sheridan 5 mg at 06/28/18 1209 acetaminophen 975 mg CUP (TYLENOL) 975 mg ORAL/FEEDING TUBE QID Lai (Res) Ramirez potassium chloride ER 40 mEq tab(s) (K-DUR, KLOR-CON) 40 mEq ORAL BID Esteban (Res) Gastaldo, DO 40 mEq at 06/27/182016 enoxaparin 40 mg injection (LOVENOX) 40 mg SUBCUTANEOUS DAILY Esteban (Res) Gastaldo, DO 40 mg at 06/30/18 0841 NaCl 0.9% 10 mL 10 mL INTRAVENOUS q 12 H Esteban (Res) Gastaldo, DO 10 mL at 06/28/18 0825 NaCl 0.9% 20 mL 20 mL INTRAVENOUS PRN Esteban (Res) Gastaldo, DO ondansetron 4 mg tab(s) (ZOFRAN) 4 mg ORAL q 6 H PRN Esteban (Res) Gastaldo, DO Or ondansetron (PF) 4 mg injection (ZOFRAN) 4 mg INTRAVENOUS q 6 H PRN Esteban (Res) Gastaldo, DO 4 mg at 06/29/18 1434 Prescriptions Prior to Admission: XARELTO 20 mg tablet TAKE ONE TABLET BY MOUTH DAILY WITH DINNER. Disp: 30 tablet Rfl: 5 Past Week at Unknown time promethazine (PHENERGAN) 25 mg tablet Take 1 tablet by mouth every 6 hours as needed. FOR NAUSEA (Patient not taking: Reported on 06/26/2018 ) Disp: 20 tablet Rfl: 2 Not Taking dexamethasone (DECADRON) 4 mg tablet TAKE ONE TABLET BY MOUTH TWICE DAILY (Patient not taking: Reported on 06/26/2018) Disp: 10 tablet Rfl: 5 Not Taking minocycline (MINOCIN, DYNACIN) 100 mg capsule Take 100 mg by mouth twice daily. Disp: Rfl: 3 Not Taking potassium chloride ER (K-DUR, KLOR-CON) 20 mEq tablet Take 1 tablet by mouth three times daily. (Patient taking differently: Take 40 mEq by mouth twice daily. ) Disp: 90 tablet Rfl: 2 ondansetron (ZOFRAN) 8 mg tablet Take 1 tablet by mouth every 8 hours as needed for Nausea/Vomiting. (Patient not taking: Reported on 06/26/2018 ) Disp: 30 tablet Rfl: 2 Not Taking Social History Marital status: Spouse name: Years of education: Number of children: Social History Main Topics Smoking status: Former Smoker Packs/day: 0.50 Years: 10.00 Types: Cigarettes Quit date: 01/21/1990 Smokeless tobacco: Never Used Alcohol use: Yes Comment: beer once in awhile Drug use: No Other Topics Concern Caffeine Concern Yes Special Diet No Exercise No FAMILY HISTORY Problem Relation Age of Onset - Colon Cancer Paternal Grandfather 83 - Diabetes Sister PAST SURGICAL HISTORY Procedure Laterality Date - APPENDECTOMY at age 8 - LAP COLECTOMY, 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 with en bloc SB resection - PAST SURGICAL HISTORY OF 05/22/16 wedge liver bx, ileum wedge rsxn, omentectomy, debulking, HIPEC ROS: All of the following reviewed and negative except as noted below: GENERAL: no fever, chills, sweats, weight loss, fatigue, generalized weakness HEENT: no headache, vision changes, eye discomfort, hearing change, ear discomfort, sinus pain, nasal discharge or congestion, oral lesions, soreness, dental problem NECK: no adenopathy, discomfort, change in ROM CHEST: no shortness of breath, dyspnea on exertion, wheezing, cough, sputum production or chest pain HEART: no chest pain, palpitations, syncope ABDOMEN: no nausea, vomiting, constipation, diarrhea, abdominal pain : no dysuria, urgency, frequency, history of stones, incontinence NEURO: Tolerating oxycodone better without confusion. Was having some confusion and sedation with IV Dilaudid yesterday. EXTREMITIES: no new pain, edema, change in ROM HEME: no new adenopathy, bruises, petechiae PSYCH: no depression, anxiety, agitation PHYSICAL EXAMINATION: see below for new or abnormal findings BP 119/74 Pulse 103 Temp 36.4 ?C (97.5 ?F) (Temporal Artery) Resp 18 Ht 185.4 cm (6' 1) Wt 89 kg (196 lb 3.2 oz) SpO2 95% BMI 25.89 kg/m? BMI 25.89 kg/(m2) GENERAL: well nourished and developed; no acute distress; alert and oriented x 3; intact judgement and insight HEENT: no evidence of trauma; cranial nerves intact; eyes clear EOMI; no hearing deficits apparent; nasal passages unremarkable; throat and mucous membranes clear NECK: supple without lymphadenopathy; no JVD; no thyromegaly CHEST: clear bilaterally to auscultation; normal chest movement; no rales or rhonchi HEART: regular rate and rhythm, normal S1 and S2, no murmurs, clicks, rubs, or gallops ABDOMEN: soft; nondistended; bowel sounds present; no hepatomegaly; no splenomegaly; no tenderness EXTREMITIES: no evidence of clubbing; no cyanosis; no deformity; no joint effusion; no edema NEURO: cranial nerves intact; no focal deficits; no confusion; no tremor; sensorium normal SKIN: no rash; no skin breakdown; no decubitus lesions HEME: no bruising; no adenopathy PSYCH: no evidence of depression; no anxiety; no agitation; no apparent hallucinations ABNORMAL/NEW FINDINGS: NONE CBC: No results for input(s): WBC, RBC, HB, HCT, PLT, MCV, MCH, MPV, RDW in the last 24 hours. CMP: No results for input(s): NA, K, CHLOR, CO2, BUN, CREAT, GLUC, TPROT, CA, MG, ALBUMIN, TBILI, ALKPHOS, ALT, AST, ANION in the last 24 hours. Heme: No results for input(s): RETICP, ABSRETIC, LD, SARAH, FE, TIBC, TRANSFERSAT in the last 24 hours. 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) Carcinomatosis (Hcc) OARRS: 06/21/18 MSContin 15mg #14 Dr Trinh 06/21/18 [place] 5/325 #28 Pain Regimen Use/Notes (Opiate use last 24 hrs): Acetaminophen 975 mg?x 2 Dilaudid 1mg iv x 3, 0.5mg iv x 1 Oxycodone 10mg x 1 PLAN: D/C Dilaudid IV tomorrow am -pt thinks he needs just one more day Change Oxycodone 5mg po q3h prn moderate pain, 10mg q3h prn severe pain FIELD [employer]IEF using MSContin 15mg BID AND [place]-no longer taking, pt was trying to get off opiates [employer]IEF Surgery note reviewed-low UOP, bladder scan for 300cc pt asymptomatic on 06/30 ALEIDA NORMAN PHARMACIST 6:47 AM Pt seen and examined independently. Discussed with the Pain Service, and agree with above note as amended in blue Dion Mtz MD PROGRESS Observed: 07/01/2018 Status: COMPLETED Source: [place] 6:51 AM CLINIC OTHER CAMPUS REPOSITORY HNO ID: [id number] Author: Lai (Sandra Ramirez Service: General Surgery Author Type: Resident Type: Progress Notes Filed: 07/01/2018 6:57 AM Note Text: Attestation signed by Justin Dhillon at 07/01/2018 4:31 PM Attending Note I personally saw and examined the patient. I reviewed the resident's note. I agree with the resident's assessment and plan with the following revisions and/or additions: Feeling better today. We'll add Toradol. Hep-Lock IV fluids. Add protein supplements. Signature: Justin Dhillon MD Date: 07/01/2018 Time: 4:31 PM [facility] General Surgery Progress Note SERVICE DATE: 07/01/2018 Elective General Surgery Service Pager: For questions or concerns Mon-Fri 6a-5p please page [phone]. After 5pm and on Weekends and Holidays, please page [phone] if in ICU or [phone] if on RNF. SUBJECTIVE: NAEON, +pain, nausea improved from yesterday Tolerating diet DIET GASTRO INTESTINAL Nausea No Emesis No Flatus Yes Bowel movement No Pain Controlled No Ambulating Yes OBJECTIVE: Vitals: Temp (24hrs), Av.4 ?C (97.5 ?F), Min:36.2 ?C (97.2 ?F), Max:36.5 ?C (97.7 ?F) BP 122/77 Pulse 89 Temp 36.2 ?C (97.2 ?F) (Temporal Artery) Resp 18 Ht 185.4 cm (6' 1) Wt 86.5 kg (190 lb 12.8 oz) SpO2 96% BMI 25.17 kg/m? O2 Therapy: Room Air IANDO: Date 06/30/18 07 - 07/01/18 0659 07/01/18 07 - 07/02/18 0659 Shift 2614-7184 4182-8929 7451-8105 24 Hour Total 2589-6815 8675-8251 4109-3182 24 Hour Total I N T A K E PO 100 100 PO 100 100 IV 2100 1400 1000 4500 D5 LR 1600 1600 NS 0.9% 500 1400 1000 2900 Shift Total 2200 1400 1000 4600 O U T P U T Urine 100 150 235 485 Void (ml) 100 75 175 Amount Voided Before Bladder Scan 75 235 310 Urine Incontinence/Not Saved 6 x 6 x Urine Not Saved. 1 x 1 x 2 x Tubes 50 30 80 Drain/Tube Output (Drain/Tube 06/28/18 1857 Assessment Michael Odonnell Right Abdomen Drain #1) 50 30 80 Shift Total 100 200 265 565 Weight (kg) 89 89 86.5 86.5 86.5 86.5 86.5 86.5 MEDICATIONS Current Facility-Administered Medications: oxyCODONE IR 5 mg tab(s) (ROXICODONE) 5 mg ORAL q 3 H PRN oxyCODONE IR 10 mg tab(s) (ROXICODONE) 10 mg ORAL q 3 H PRN NaCl 0.9% iv infusion 125 mL/hr INTRAVENOUS CONTINUOUS minocycline 100 mg cap(s) (MINOCIN, DYNACIN) 100 mg ORAL BID acetaminophen 975 mg CUP (TYLENOL) 975 mg ORAL QID Or acetaminophen 975 mg tab(s) (TYLENOL) 975 mg ORAL QID HYDROmorphone HCl 1 mg injection (DILAUDID) 1 mg INTRAVENOUS q 3 H PRN prochlorperazine 5 mg injection (COMPAZINE) 5 mg INTRAVENOUS q 6 H PRN potassium chloride ER 40 mEq tab(s) (K-DUR, KLOR-CON) 40 mEq ORAL BID enoxaparin 40 mg injection (LOVENOX) 40 mg SUBCUTANEOUS DAILY NaCl 0.9% 10 mL 10 mL INTRAVENOUS q 12 H NaCl 0.9% 20 mL 20 mL INTRAVENOUS PRN ondansetron 4 mg tab(s) (ZOFRAN) 4 mg ORAL q 6 H PRN Or ondansetron (PF) 4 mg injection (ZOFRAN) 4 mg INTRAVENOUS q 6 H PRN Labs: Recent Labs 07/01/18 0312 06/30/18 1050 06/29/18 0335 NA 138 136 137 K 4.0 4.3 5.2* CHLOR 107 103 105 CO2 25 28 23 BUN 15 16 8 CREAT 0.94 1.05 1.00 GLUC 83 164* 186* ANION 10 9 14 CA 7.6* 7.8* 7.8* MG -- -- 2.1 P -- -- 3.7 WBC 11.02* 13.55* 16.99* HB 8.5* 9.5* 10.9* HCT 27.1* 30.3* 34.1* PLT 317 294 300 Exam: GENERAL: No distress, Alert NEURO: AANDOx3, CN II-XII grossly intact HEENT: normocephalic, atraumatic LUNGS: Unlabored breathing CARDIAC: Regular rate and rhythm as above ABDOMEN: Soft, mild D, aTTP, Prevena intact, ALBERTA SS, G-D Tube intact and clamped EXTREMITIES: HEDRICK, No deformities, No edema SKIN: Skin color, texture, turgor normal, No rashes or lesions ASSESSMENT AND PLAN: Active Hospital Problems Diagnosis Date Noted - Carcinomatosis (HCC) 06/26/2018 Overview Note: Added automatically from request for surgery [id number] 62 year old male with Metastatic Sigmoid Colon cancer and Carcinomatosis s/p Sigmoidectomy, Wedge Liver Rxn, SBR, Omentectomy, Debulking, and HIPEC in 2014 and 2016 ? - Soft GI - Clamp G tube - pain ctl per pain mgmt - ALBERTA to bulb sxn - Prevena - ambulate - reactive leukocytosis improving - acute blood loss anemia on chronic anemia - monitor - IS SIGNATURE: Lai Ramirez MD PATIENT NAME: Becca Magana DATE: July 01, 2018 TIME: 6:52 AM Pager: Elective General Surgery Service Pager: For questions or concerns Mon-Fri 6a-5p please page [phone]. After 5pm and on Weekends and Holidays, please page [phone] if in ICU or [phone] if on RNF. NURSING PROG Observed: 07/01/2018 Status: COMPLETED Source: [place] 4:28 AM CLINIC OTHER CAMPUS REPOSITORY HNO ID: [id number] Author: Tawnya HernándezRn) DENAE Ghosh Service: Nursing Author Type: Registered Nurse Type: Nursing Progress Note Filed: 07/01/2018 4:30 AM Note Text: Notified Dr. Fran Culver of pt low urine output. Pt bladder scanned for 235cc. notified now new orders received. Will continue to monitor. HEMOGRAM/DIFF Collected: 07/01/2018 Status: F Source: [facility] 3:12 AM HEALTH SYSTEM REPOSITORY TYPE CODE TESTS RESULT OUT OF REFERENCE UNITS RANGE LAB WBC(LOINC) 4.23-9.07 thou/cmm WBC High 11.02 LAB RBC(LOINC) 4.63-6.08 mil/cmm Low RBC 2.84 LAB HGB(LOINC) 13.7-17.5 g/dL Low Hgb 8.5 LAB HCT(LOINC) 40.1-51.0 % Low Hct 27.1 LAB MCV(LOINC) 83.2-95.6 fl MCV 95.4 LAB MCH(LOINC) 25.7-32.2 pg MCH 29.9 LAB MCHC(LOINC 32.3-36.5 % ) Low MCHC 31.4 LAB RDW(LOINC) 11.6-14.4 % RDW 14.3 LAB RDWSD(LOIN 36.1-45.8 fl C) RDW SD High 50.5 LAB PLT(LOINC) 141-365 thou/cmm Platelet 317 LAB MPV(LOINC) 8.7-12.0 fl MPV 9.2 LAB NRBCR(LOIN 0.0-0.2 % C) High Nucleated RBC % 0.3 LAB SEG(LOINC) % Seg Neutrophil 74.7 LAB IGRE(LOINC % ) Immature Grans 0.80 LAB LYMPH(LOIN % C) Lymphocyte 7.8 LAB MNO(LOINC) % Monocyte 13.2 LAB EOSIN(LOIN % C) Eosinophil 3.1 LAB BASO(LOINC % ) Basophil 0.4 LAB NRBCA(LOIN 0.00-0.01 thou/cmm C) High Nucleated RBC 0.03 Absolute LAB SEGN(LOINC 1.78-5.38 thou/cmm ) Abs. High Neut (ANC) 8.23 LAB IGAB(LOINC 0.00-0.05 thou/cmm ) Abs High Immature Grans 0.09 LAB LYMN(LOINC 0.84-2.85 thou/cmm ) Abs. Lymph 0.86 LAB MONON(LOIN 0.30-0.82 thou/cmm C) Abs. High [place] 1.45 LAB EOSN(LOINC 0.04-0.54 thou/cmm ) Abs. Eosin 0.34 LAB BASON(LOIN 0.01-0.08 thou/cmm C) Abs. Baso 0.04 Performed By: #### [id number] #### [facility] [address] [address] BASIC PANEL Collected: 07/01/2018 Status: F Source: [facility] 3:12 AM HEALTH SYSTEM REPOSITORY TYPE CODE TESTS RESULT OUT OF REFERENCE UNITS RANGE LAB NA(LOINC) 136-145 mEq/L Sodium Blood 138 LAB K(LOINC) 3.5-5.1 mEq/L Potassium Blood 4.0 LAB CL(LOINC) 98-107 mEq/L Chloride Blood 107 LAB CO2(LOINC) 21-32 mEq/L CO2 Blood 25 LAB GLU(LOINC) 70-99 mg/dL Glucose Blood 83 LAB BUN(LOINC) 7-18 mg/dL BUN Blood 15 LAB CREA(LOINC 0.67-1.17 mg/dL ) Creatinine Blood 0.94 LAB CA(LOINC) 8.5-10.1 mg/dL Low Calcium Blood 7.6 LAB ANGAP(LOIN 8-16 C) Anion Gap 10 Performed By: #### P8 #### [facility] [address] [address] CHEST 1 VIEW Observed: 06/30/2018 Status: F Source: [facility] 5:17 PM HEALTH SYSTEM REPOSITORY Performed at [facility] APPROVED BY: Brodie Giron MD EXAMINATION: CHEST RADIOGRAPH (PORTABLE SINGLE VIEW AP) Exam Date/Time: 06/30/2018 5:17 PM Indication: Chest tube removal; evaluate for pneumothorax Comparison: Chest x-ray done earlier today RESULT: Lines, tubes, and devices: Left PICC line is unchanged. Left thoracostomy tube has been removed. Lungs and pleura: Shallow depth of inspiration. Mild left basilar atelectasis. No pleural effusion. Cardiomediastinal silhouette: Normal in appearance. Bony thorax is appropriate for the patient's age. No pneumothorax is seen. IMPRESSION: NO EVIDENCE OF PNEUMOTHORAX FOLLOWING CHEST TUBE REMOVAL. MILD LEFT BASILAR ATELECTASIS. HEMOGRAM/DIFF Collected: 06/30/2018 Status: F Source: [facility] 10:50 AM HEALTH SYSTEM REPOSITORY TYPE CODE TESTS RESULT OUT OF REFERENCE UNITS RANGE LAB WBC(LOINC) 4.23-9.07 thou/cmm WBC High 13.55 LAB RBC(LOINC) 4.63-6.08 mil/cmm Low RBC 3.21 LAB HGB(LOINC) 13.7-17.5 g/dL Low Hgb 9.5 LAB HCT(LOINC) 40.1-51.0 % Low Hct 30.3 LAB MCV(LOINC) 83.2-95.6 fl MCV 94.4 LAB MCH(LOINC) 25.7-32.2 pg MCH 29.6 LAB MCHC(LOINC 32.3-36.5 % ) Low MCHC 31.4 LAB RDW(LOINC) 11.6-14.4 % RDW 14.2 LAB RDWSD(LOIN 36.1-45.8 fl C) RDW SD High 49.4 LAB PLT(LOINC) 141-365 thou/cmm Platelet 294 LAB MPV(LOINC) 8.7-12.0 fl MPV 8.9 LAB NRBCR(LOIN 0.0-0.2 % C) Nucleated RBC % 0.1 LAB NRBCA(LOIN 0.00-0.01 thou/cmm C) High Nucleated RBC 0.02 Absolute LAB SEG(LOINC) % Seg Neutrophil 85.0 LAB LYMPH(LOIN % C) Lymphocyte 8.0 LAB MNO(LOINC) % Monocyte 6.0 LAB EOSIN(LOIN % C) Eosinophil 0.0 LAB BASO(LOINC % ) Basophil 1.0 LAB SEGN(LOINC 1.78-5.38 thou/cmm ) Abs. High Neut (ANC) 11.52 LAB LYMN(LOINC 0.84-2.85 thou/cmm ) Abs. Lymph 1.08 LAB MONON(LOIN 0.30-0.82 thou/cmm C) Abs. [place] 0.81 LAB EOSN(LOINC 0.04-0.54 thou/cmm ) Low Abs. Eosin 0.00 LAB BASON(LOIN 0.01-0.08 thou/cmm C) Abs. High Baso 0.14 LAB RBCM(LOINC ) RBC Morphology Normal Performed By: #### [id number] #### [facility] [address] [place], [place] [address] BASIC PANEL Collected: 06/30/2018 Status: F Source: [facility] 10:50 AM HEALTH SYSTEM REPOSITORY TYPE CODE TESTS RESULT OUT OF REFERENCE UNITS RANGE LAB NA(LOINC) 136-145 mEq/L Sodium Blood 136 LAB K(LOINC) 3.5-5.1 mEq/L Potassium Blood 4.3 LAB CL(LOINC) 98-107 mEq/L Chloride Blood 103 LAB CO2(LOINC) 21-32 mEq/L CO2 Blood 28 LAB GLU(LOINC) 70-99 mg/dL Glucose High Blood 164 LAB BUN(LOINC) 7-18 mg/dL BUN Blood 16 LAB CREA(LOINC 0.67-1.17 mg/dL ) Creatinine Blood 1.05 LAB CA(LOINC) 8.5-10.1 mg/dL Low Calcium Blood 7.8 LAB ANGAP(LOIN 8-16 C) Anion Gap 9 Performed By: #### P8 #### [facility] [address] [place], [place] [address] PROGRESS Observed: 06/30/2018 Status: COMPLETED Source: [place] 7:23 AM CLINIC OTHER CAMPUS REPOSITORY HNO ID: [id number] Author: Dion Mtz Service: Pain Management Author Type: Physician Type: Progress Notes Filed: 07/01/2018 2:52 AM Note Text: BECCA MAGANA 62 year old PAIN CONSULTATION: Abdominal pain, colon cancer Pain currently 10/10 in severity, improves to perhaps 8/10 at its best, inadequately relieved, Sharp/aching, aggravated by any movement, palpation. Liquid diet started 06/29/2018. Has not yet taken much by way of oral route yet. One episode of flatus Subjective HPI: 62-year-old male, status post surgery and 06/28/2018 at which time he underwent resection of abdominal wall masses ?3, SBR ?3 with 1 anastomosis, splenectomy, repair of diaphragmatic defect, insertion of left chest tube, gastric duodenostomy tube placement, bilateral myocutaneous flaps, placement of retrocrural mass, with findings of masses of anterior and right lateral abdominal wall, splenic lesions with diaphragmatic extension, now resected. He had presented to [facility] Emergency department on 06/20 with progressive nonradiating periumbilical pain, with findings of concern for bowel obstruction that was managed conservatively. He was seen by Dr. Dhillon on the day of admission who have directly admitted secondary to persistent and worsening abdominal pain, and sought mechanical cause of partial small bowel obstruction. At presentation, he was able to eat, was having bowel movements without bleeding, no nausea, emesis, and also denied pulmonary, and complaints. This patient has an extensive history of metastatic colon carcinoma. He is followed by Dr. Stone in [place] who summarizes his history with his malignancy as follows: 1) Metastatic recurrence of stage III colon cancer. MSI stable. BRAF - A sequence change: [id number] ([id number]) was detected at approximately 48% allele proportion. [Reference sequence: ([id number])]. KRAS - No variant detected [Reference?sequence: ([id number])]. NRAS - No variant detected [Reference sequence: ([id number])]. ? Patient referred by ongoing management of metastatic colon cancer. ? HPI: The patient is a 62 yo male who developed abdominal pain around June 2014. His symptoms progressively worsened throughout the spring. He also began losing weight in the spring and this culminated in a hospitalization for what was thought to be diverticulitis in December 2014. He underwent a CT scan which was thought to demonstrated a left lower quadrant abscess. The drain was placed and he was treated with antibiotic treatment. Pain flared and a repeat CT scan on 01/24/15 demonstrated marked inflammatory phlegmonous changes of the proximal sigmoid colon. He therefore underwent a colonoscopy and sigmoid colon resection with lymph node dissection on 01/29/2015. The sigmoid colon was noted to be adherent to the anterior abdominal wall and small bowel. The final pathology demonstrated an invasive moderately differentiated adenocarcinoma, tumor extension through the colonic wall and involving the muscularis propria of the small bowel. The proximal margin resection had a small focus of tumor present at the serosal surface. None of 25 lymph nodes were involved. The patient went on to receive 12 cycles FOLFOX which she finished on 09/13/2015. ? Surveillance CT scan the abdomen and pelvis on January 06, 2016 demonstrated a small omental nodules. He was treated with 4 cycles of FOLFIRI and then underwent exploratory laparotomy, excision of peritoneal/liver/small bowel/mesenteric nodules, heated intraperitoneal chemotherapy (HIPEC) administration for 100 minutes, cystoscopy with bilateral ureteral stent placement on 05/22/2016. His [place] prescription history shows recent MS Contin 15 mg every 12 hours #14, and [place] 5/325#28 both filled on 06/21/2018 at the time of his last hospital discharge. Prior to this, had only one prescription approximately one year ago for [place] #15. ? Pathology: 1. Small bowel peritoneal nodules, excision (A) - Organizing fibrous adhesions. - No evidence of malignancy. 2. Left liver nodule, biopsy (B) - Adenocarcinoma in liver, consistent with colonic primary. 3. Omentum, excision (C) - Infiltrating adenocarcinoma, consistent with colonic primary. 4. Left upper quadrant abdominal wall, biopsy (D) - Infiltrating adenocarcinoma, consistent with colonic primary. 5. Pelvic nodule and omentum, excision (E) - Infiltrating adenocarcinoma, consistent with colonic primary. - One lymph node, negative for malignancy (0/1). 6. Ileal nodule, excision (F) - Infiltrating adenocarcinoma, consistent with colonic primary. ? In end of July/first week of August this year he underwent repeat staging workup (CT and PET) which unfortunately showed liver metastasis and intra-abdominal metastases. ? He recently started back on chemotherapy with FOLFIRI and cetuximab. He's had 2 cycles to date. ? Previous therapy: 1) FOLFOX ?12 cycles completed 09/13/2015. 2) FOLFIRI x4 cycles. 3) Exploratory lap 04/2016 with HIPEC (mitomycin). ? Current therapy: 1) FOLFIRI (with Vectibix--side effects permitting). Current Facility-Administered Medications: HYDROmorphone HCl 1-1.5 mg injection (DILAUDID) 1-1.5 mg INTRAVENOUS q 3 H PRN Dion Mtz prochlorperazine 5 mg injection (COMPAZINE) 5 mg INTRAVENOUS q 6 H PRN Tripp (Res) Sheridan 5 mg at 06/28/18 1209 acetaminophen 975 mg CUP (TYLENOL) 975 mg ORAL/FEEDING TUBE QID Lai (Res) Ramirez dextrose 5% in LR infusion (D5-LR) 125 mL/hr INTRAVENOUS CONTINUOUS Lai (Res) Ramirez Last Rate: 125 mL/hr at 06/29/18616 125 mL/hr at 06/29/18616 potassium chloride ER 40 mEq tab(s) (K-DUR, KLOR-CON) 40 mEq ORAL BID Esteban (Res) Gastaldo, DO 40 mEq at 06/27/182016 enoxaparin 40 mg injection (LOVENOX) 40 mg SUBCUTANEOUS DAILY Esteban (Res) Gastaldo, DO 40 mg at 06/28/18825 NaCl 0.9% 10 mL 10 mL INTRAVENOUS q 12 H Esteban (Res) Gastaldo, DO 10 mL at 06/28/18824 NaCl 0.9% 20 mL 20 mL INTRAVENOUS PRN Esteban (Res) Gastaldo, DO ondansetron 4 mg tab(s) (ZOFRAN) 4 mg ORAL q 6 H PRN Esteban (Res) Gastaldo, DO Or ondansetron (PF) 4 mg injection (ZOFRAN) 4 mg INTRAVENOUS q 6 H PRN Esteban (Res) Gastaldo, DO 4 mg at 06/28/18824 minocycline 100 mg cap(s) (MINOCIN, DYNACIN) 100 mg ORAL BID Esteban (Res) Gastaldo, DO 100 mg at 06/28/18825 Prescriptions Prior to Admission: XARELTO 20 mg tablet TAKE ONE TABLET BY MOUTH DAILY WITH DINNER. Disp: 30 tablet Rfl: 5 Past Week at Unknown time promethazine (PHENERGAN) 25 mg tablet Take 1 tablet by mouth every 6 hours as needed. FOR NAUSEA (Patient not taking: Reported on 06/26/2018 ) Disp: 20 tablet Rfl: 2 Not Taking dexamethasone (DECADRON) 4 mg tablet TAKE ONE TABLET BY MOUTH TWICE DAILY (Patient not taking: Reported on 06/26/2018) Disp: 10 tablet Rfl: 5 Not Taking minocycline (MINOCIN, DYNACIN) 100 mg capsule Take 100 mg by mouth twice daily. Disp: Rfl: 3 Not Taking potassium chloride ER (K-DUR, KLOR-CON) 20 mEq tablet Take 1 tablet by mouth three times daily. (Patient taking differently: Take 40 mEq by mouth twice daily. ) Disp: 90 tablet Rfl: 2 ondansetron (ZOFRAN) 8 mg tablet Take 1 tablet by mouth every 8 hours as needed for Nausea/Vomiting. (Patient not taking: Reported on 06/26/2018 ) Disp: 30 tablet Rfl: 2 Not Taking Social History Marital status: Spouse name: Years of education: Number of children: Social History Main Topics Smoking status: Former Smoker Packs/day: 0.50 Years: 10.00 Types: Cigarettes Quit date: 01/21/1990 Smokeless tobacco: Never Used Alcohol use: Yes Comment: beer once in awhile Drug use: No Other Topics Concern Caffeine Concern Yes Special Diet No Exercise No FAMILY HISTORY Problem Relation Age of Onset - Colon Cancer Paternal Grandfather 83 - Diabetes Sister PAST SURGICAL HISTORY Procedure Laterality Date - APPENDECTOMY at age 8 - LAP COLECTOMY, 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 with en bloc SB resection - PAST SURGICAL HISTORY OF 05/22/16 wedge liver bx, ileum wedge rsxn, omentectomy, debulking, HIPEC ROS: All of the following reviewed and negative except as noted below: GENERAL: no fever, chills, sweats, weight loss, fatigue, generalized weakness HEENT: no headache, vision changes, eye discomfort, hearing change, ear discomfort, sinus pain, nasal discharge or congestion, oral lesions, soreness, dental problem NECK: no adenopathy, discomfort, change in ROM CHEST: no shortness of breath, dyspnea on exertion, wheezing, cough, sputum production or chest pain HEART: no chest pain, palpitations, syncope ABDOMEN: no nausea, vomiting, constipation, diarrhea, abdominal pain : no dysuria, urgency, frequency, history of stones, incontinence NEURO: no confusion or alteration in consciousness, slurred speech, seizure, focal weakness EXTREMITIES: no new pain, edema, change in ROM HEME: no new adenopathy, bruises, petechiae PSYCH: no depression, anxiety, agitation PHYSICAL EXAMINATION: see below for new or abnormal findings BP 102/67 Pulse 105 Temp 36.8 ?C (98.2 ?F) (Oral) Resp 18 Ht 185.4 cm (6' 1) Wt 85.8 kg (189 lb 3.2 oz) SpO2 95% BMI 24.96 kg/m? BMI 24.96 kg/(m2) GENERAL: well nourished and developed; no acute distress; alert and oriented x 3; intact judgement and insight HEENT: no evidence of trauma; cranial nerves intact; eyes clear EOMI; no hearing deficits apparent; nasal passages unremarkable; throat and mucous membranes clear NECK: supple without lymphadenopathy; no JVD; no thyromegaly CHEST: clear bilaterally to auscultation; normal chest movement; no rales or rhonchi HEART: regular rate and rhythm, normal S1 and S2, no murmurs, clicks, rubs, or gallops ABDOMEN: soft; nondistended; bowel sounds present; no hepatomegaly; no splenomegaly; no tenderness EXTREMITIES: no evidence of clubbing; no cyanosis; no deformity; no joint effusion; no edema NEURO: cranial nerves intact; no focal deficits; no confusion; no tremor; sensorium normal SKIN: no rash; no skin breakdown; no decubitus lesions HEME: no bruising; no adenopathy PSYCH: no evidence of depression; no anxiety; no agitation; no apparent hallucinations ABNORMAL/NEW FINDINGS: NONE CBC: Recent Labs 06/29/18 0335 WBC 16.99* RBC 3.65* HB 10.9* HCT 34.1* PLT 300 MCV 93.4 MCH 29.9 MPV 9.5 RDW 14.2 CMP: Recent Labs 06/29/18 0335 NA 137 K 5.2* CHLOR 105 CO2 23 BUN 8 CREAT 1.00 GLUC 186* CA 7.8* MG 2.1 ANION 14 Heme: No results for input(s): RETICP, ABSRETIC, LD, SARAH, FE, TIBC, TRANSFERSAT in the last 24 hours. 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 Anticipate transition to oral opiates as early as this afternoon if tolerating by mouth We'll follow along with you No concerns regarding opiate use Dion Mtz M.D. CHEST 1 VIEW Observed: 06/30/2018 Status: F Source: [facility] 7:15 AM HEALTH SYSTEM REPOSITORY Performed at [facility] APPROVED BY: LINSEY GREEN MD X-RAY CHEST (1 VIEW) History: Evaluate tube, line or lead position , Pneumothorax Comparison: 06/29/2018 RESULT: 1. Lines, Tubes, and Devices: Left approach PICC. Left thoracostomy catheter. 2. Lungs and Pleura: No substantive pneumothorax. No focal consolidation. No pleural effusion. 3. Cardiomediastinal silhouette: Stable cardiomediastinal contours. 4. Other: No acute osseous abnormality. IMPRESSION: STABLE EXAM. PROGRESS Observed: 06/30/2018 Status: COMPLETED Source: [place] 6:59 AM CLINIC OTHER CAMPUS REPOSITORY HNO ID: [id number] Author: Vikas Langston Service: General Surgery Author Type: Resident Type: Progress Notes Filed: 06/30/2018 7:01 AM Note Text: Attestation signed by Silvano Menchaca at 07/02/2018 8:55 PM I saw and evaluated the patient. I reviewed the resident's note and agree. Silvano Menchaca MD, [facility], [facility] Elective General Surgery Progress Note SERVICE DATE: 06/30/2018 SUBJECTIVE: No acute events.Low UOP; bladder scan for 300cc, pt asymptomatic. States he usually has urinary retention while in the hospital. Pain LUQ abdomen, mild. Tolerating clears. Tolerating diet DIET LIQUID OBJECTIVE: Vitals: Temp (24hrs), Av.4 ?C (97.6 ?F), Min:35.8 ?C (96.4 ?F), Max:36.9 ?C (98.4 ?F) BP 134/79 Pulse 102 Temp 36.9 ?C (98.4 ?F) (Oral) Resp 18 Ht 185.4 cm (6' 1) Wt 89 kg (196 lb 3.2 oz) SpO2 96% BMI 25.89 kg/m? O2 Therapy: Room Air IANDO: Date 06/29/18699 - 06/30/18 0659 06/30/18 07 - 07/01/18 0659 Shift 7813-5124 2487-8619 6340-1696 24 Hour Total 7715-9377 7236-7933 1227-4113 24 Hour Total I N T A K E PO 120 120 PO 120 120 IV 959 6411 881 9400 D5 LR 959 3449 807 8027 NS 0.9% 500 500 Shift Total 1079 8433 595 3152 O U T P U T Urine 30 150 180 Void (ml) 75 75 Amount Voided Before Bladder Scan 75 75 Tube Output ([REMOVED] Indwelling Urinary Catheter 06/28/18 1430 Assessment [place] 06/29/18 1200) 30 30 Tubes 210 40 40 290 Drain/Tube Output (Drain/Tube 06/28/18 1857 Assessment Michael Odonnell Right Abdomen Drain #1) 30 40 40 110 Output (GI Feed/Drain 06/28/18 1806 Assessment Gastrostomy Left Abdomen) 180 180 Chest Tube 0 85 85 Chest Tube Output (Chest Tube 06/28/18 1758 Assessment Left Pleural 24 Fr Tube #1) 0 85 85 Shift Total 240 125 190 555 Weight (kg) 85.8 85.8 89 89 89 89 89 89 MEDICATIONS Current Facility-Administered Medications: NaCl 0.9% 500 mL iv bolus 500 mL INTRAVENOUS ONCE HYDROmorphone HCl 1-1.5 mg injection (DILAUDID) 1-1.5 mg INTRAVENOUS q 3 H PRN prochlorperazine 5 mg injection (COMPAZINE) 5 mg INTRAVENOUS q 6 H PRN acetaminophen 975 mg CUP (TYLENOL) 975 mg ORAL/FEEDING TUBE QID dextrose 5% in LR infusion (D5-LR) 125 mL/hr INTRAVENOUS CONTINUOUS potassium chloride ER 40 mEq tab(s) (K-DUR, KLOR-CON) 40 mEq ORAL BID enoxaparin 40 mg injection (LOVENOX) 40 mg SUBCUTANEOUS DAILY NaCl 0.9% 10 mL 10 mL INTRAVENOUS q 12 H NaCl 0.9% 20 mL 20 mL INTRAVENOUS PRN ondansetron 4 mg tab(s) (ZOFRAN) 4 mg ORAL q 6 H PRN Or ondansetron (PF) 4 mg injection (ZOFRAN) 4 mg INTRAVENOUS q 6 H PRN minocycline 100 mg cap(s) (MINOCIN, DYNACIN) 100 mg ORAL BID Labs: Recent Labs 06/29/18 0335 06/28/18 0450 NA 137 136 K 5.2* 4.7 CHLOR 105 102 CO2 23 29 BUN 8 8 CREAT 1.00 0.97 GLUC 186* 99 ANION 14 10 CA 7.8* 8.3* MG 2.1 -- P 3.7 -- WBC 16.99* 4.47 HB 10.9* 9.3* HCT 34.1* 29.5* PLT 300 216 Exam: GENERAL: No distress, Alert NEURO: AANDOx3, CN II-XII grossly intact HEENT: normocephalic, atraumatic LUNGS: Unlabored breathing, L CT WS, no leak CARDIAC: Regular rate and rhythm as above ABDOMEN: Soft, non-tender, non-distended, ALBERTA serosang. EXTREMITIES: HEDRICK, No deformities, No edema SKIN: Skin color, texture, turgor normal, No rashes or lesions ASSESSMENT AND PLAN: Active Hospital Problems Diagnosis Date Noted - Carcinomatosis (HCC) 06/26/2018 Overview Note: Added automatically from request for surgery [id number] ? 62 year old male with Metastatic Sigmoid Colon cancer and Carcinomatosis s/p Sigmoidectomy, Wedge Liver Rxn, SBR, Omentectomy, Debulking, and HIPEC in 2014 and 2016 ? - CLD - Clamp G tube - Monitor CT output, continue WS, possibly dc CT today - Daily CXR with CT in place - pain ctl - Saline bolus 500cc - Monitor UOP - bladder scan later today SIGNATURE: Vikas Langston MD PATIENT NAME: Becca Magana DATE: June 30, 2018 TIME: 6:59 AM Pager: [phone] Elective General Surgery Service Pager: For questions or concerns Mon-Fri 6a-5p please page [phone]. After 5pm and on Weekends and Holidays, please page [phone]. NURSING PROG Observed: 06/30/2018 Status: COMPLETED Source: [place] 6:45 AM CLINIC OTHER CAMPUS REPOSITORY HNO ID: [id number] Author: Tawnya HernándezRn) Augie, RN Service: Nursing Author Type: Registered Nurse Type: Nursing Progress Note Filed: 06/30/2018 7:12 AM Note Text: Notified Dr. Vikas Langston of pt low urine output and bladder scan of 216cc. New orders received. PROGRESS Observed: 06/30/2018 Status: COMPLETED Source: [place] 3:15 AM [facility] REPOSITORY HNO ID: [id number] Author: Downtime Note Service: (none) Author Type: (none) Type: Progress Notes Filed: 06/30/2018 3:22 AM Note Text: Epic Scheduled Downtime: 06/30/2018 1:00:00 AM to 06/30/2018 3:07:00 AM NURSING PROG Observed: 06/30/2018 Status: COMPLETED Source: [place] 12:54 AM [facility] REPOSITORY HNO ID: [id number] Author: Tawnya HernándezRn) Augie, RN Service: Nursing Author Type: Registered Nurse Type: Nursing Progress Note Filed: 06/30/2018 12:57 AM Note Text: This nurse and senior tech in to bladder scan pt. Pt apologized to this RN for behavior and miscommunication. Pt bladder scanned for 196 cc. MD Magdaleno Campbell notified. NURSING PROG Observed: 06/30/2018 Status: COMPLETED Source: [place] 12:45 AM [facility] REPOSITORY HNO ID: [id number] Author: Tawnya HernándezRn) Augie, RN Service: Nursing Author Type: Registered Nurse Type: Nursing Progress Note Filed: 06/30/2018 12:55 AM Note Text: Senior tech in to see pt. Pt states to senior tech he would like to apologize to RN. States he thought nurse was going to straight cath pt. NURSING PROG Observed: 06/30/2018 Status: COMPLETED Source: [place] 12:36 AM [facility] REPOSITORY HNO ID: [id number] Author: Tawnya HernándezRn) Augie, RN Service: Nursing Author Type: Registered Nurse Type: Nursing Progress Note Filed: 06/30/2018 12:54 AM Note Text: This nurse and tech in to bladder scan pt. Nurse explains procedure to pt. Pt begins to be argumentative stating I am refusing this, I have the right to refuse. This nurse again explains that this is a rather simple non invasive procedure. He states you are cross talking and will not do that to me. I know my rights and refuse. MD Magdaleno Campbell notified. PROGRESS Observed: 06/29/2018 Status: COMPLETED Source: [place] 10:40 AM CLINIC OTHER CAMPUS REPOSITORY HNO ID: [id number] Author: Vikas Langston Service: General Surgery Author Type: Resident Type: Progress Notes Filed: 06/29/2018 10:43 AM Note Text: Attestation signed by Silvano Menchaca at 06/30/2018 12:28 AM I saw and evaluated the patient. I reviewed the resident's note and agree. Silvano Menchaca MD, FACS, [facility] Elective General Surgery Progress Note SERVICE DATE: 06/29/2018 SUBJECTIVE: No acute events. Pain over incisions. No N/V. L CT to WS, maradiaga, G tube, and ALBERTA in place. No BM or flatus. Tolerating diet DIET LIQUID OBJECTIVE: Vitals: Temp (24hrs), Av.7 ?C (98 ?F), Min:36.1 ?C (97 ?F), Max:37.1 ?C (98.8 ?F) BP 103/64 Pulse 105 Temp 36.5 ?C (97.7 ?F) (Oral) Resp 18 Ht 185.4 cm (6' 1) Wt 85.8 kg (189 lb 3.2 oz) SpO2 95% BMI 24.96 kg/m? O2 Therapy: Room Air IANDO: Date 06/28/18 0700 - 12/08/18 0659 06/29/18 07 - 06/30/18 0659 Shift 8300-6726 0919-6877 9784-1019 24 Hour Total 4213-7825 1136-2694 8440-7730 24 Hour Total I N T A K E IV 3178 912 4090 D5 LR 912 912 LR 178 178 OR Crystalloid intake (mL) 3000 3000 Shift Total 3178 912 4090 O U T P U T Urine 315 269 7807 OR Urine Output 900 900 Tube Output ( Indwelling Urinary Catheter 06/28/18 1430 Assessment [place]) 70 225 295 Tubes 140 195 335 30 30 Drain/Tube Output (Drain/Tube 06/28/18 1857 Assessment Michael Odonnell Right Abdomen Drain #1) 70 70 140 Output (GI Feed/Drain 06/28/18 1806 Assessment Gastrostomy Left Abdomen) 70 125 195 30 30 Chest Tube 80 90 170 Chest Tube Output (Chest Tube 06/28/18 1758 Assessment Left Pleural 24 Fr Tube #1) 80 90 170 Blood 100 100 Estimated Blood loss 100 100 Shift Total 4181 816 2339 30 30 Weight (kg) 86.6 86.6 85.8 85.8 85.8 85.8 85.8 85.8 MEDICATIONS Current Facility-Administered Medications: HYDROmorphone HCl 1-1.5 mg injection (DILAUDID) 1-1.5 mg INTRAVENOUS q 3 H PRN prochlorperazine 5 mg injection (COMPAZINE) 5 mg INTRAVENOUS q 6 H PRN acetaminophen 975 mg CUP (TYLENOL) 975 mg ORAL/FEEDING TUBE QID dextrose 5% in LR infusion (D5-LR) 125 mL/hr INTRAVENOUS CONTINUOUS potassium chloride ER 40 mEq tab(s) (K-DUR, KLOR-CON) 40 mEq ORAL BID enoxaparin 40 mg injection (LOVENOX) 40 mg SUBCUTANEOUS DAILY NaCl 0.9% 10 mL 10 mL INTRAVENOUS q 12 H NaCl 0.9% 20 mL 20 mL INTRAVENOUS PRN ondansetron 4 mg tab(s) (ZOFRAN) 4 mg ORAL q 6 H PRN Or ondansetron (PF) 4 mg injection (ZOFRAN) 4 mg INTRAVENOUS q 6 H PRN minocycline 100 mg cap(s) (MINOCIN, DYNACIN) 100 mg ORAL BID Labs: Recent Labs 06/29/18 0335 06/28/18 0450 06/27/18 0320 06/26/18 1735 NA 137 136 140 140 K 5.2* 4.7 4.3 4.0 CHLOR 105 102 109* 109* CO2 23 29 25 27 BUN 8 8 6* 6* CREAT 1.00 0.97 0.87 0.82 GLUC 186* 99 77 96 ANION 14 10 10 8 CA 7.8* 8.3* 8.2* 8.3* MG 2.1 -- -- -- P 3.7 -- -- -- ALB -- -- 2.2* 2.3* AST -- -- 25 30 ALT -- -- 23 24 ALKPHOS -- -- 73 78 TBILI -- -- 0.2 0.3 WBC 16.99* 4.47 3.73* 4.03* HB 10.9* 9.3* 9.1* 9.2* HCT 34.1* 29.5* 28.6* 27.7* PLT 300 216 182 179 Exam: GENERAL: No distress, Alert NEURO: AANDOx3, CN II-XII grossly intact HEENT: normocephalic, atraumatic LUNGS: Unlabored breathing CARDIAC: Regular rate and rhythm as above ABDOMEN: Soft, mild tenderness, nondistended. ALBERTA serosanguinous, G tube gastric, Chest tube serosang. EXTREMITIES: HEDRICK, No deformities, No edema SKIN: Skin color, texture, turgor normal, No rashes or lesions ASSESSMENT AND PLAN: Active Hospital Problems Diagnosis Date Noted - Carcinomatosis (HCC) 06/26/2018 Overview Note: Added automatically from request for surgery [id number] 62 year old male with Metastatic Sigmoid Colon cancer and Carcinomatosis s/p Sigmoidectomy, Wedge Liver Rxn, SBR, Omentectomy, Debulking, and HIPEC in 2014 and 2016 ? - NPO/IVF - Advance to CLD - DC maradiaga - Clamp G tube - Monitor CT output, continue WS - Daily CXR with CT in place - pain ctl SIGNATURE: Vikas Langston MD PATIENT NAME: Becca Magana DATE: June 29, 2018 TIME: 10:40 AM Pager: [phone] Elective General Surgery Service Pager: For questions or concerns Mon-Sun 6a-5p please page [phone]. After 5pm and on Weekends and Holidays, please page [phone]. NURSING PROG Observed: 06/29/2018 Status: COMPLETED Source: [place] 7:40 AM [facility] REPOSITORY HNO ID: [id number] Author: Margie (Rn) DENAE Henriquez Service: (none) Author Type: Registered Nurse Type: Nursing Progress Note Filed: 06/29/2018 7:40 AM Note Text: Nursing Progress Note Patient Name: Becca Magana Patient Location: [place] [id number] Notified Dr. Culver regarding pt low urine output in mar[place] catheter of 225cc in the last 8 hours. No new orders received. Will continue to monitor pt. This note was completed by: Margie Henriquez RN CHEST 1 VIEW Observed: 06/29/2018 Status: F Source: [facility] 7:28 AM HEALTH SYSTEM REPOSITORY Performed at [facility] APPROVED BY: LINSEY GREEN MD X-RAY CHEST (1 VIEW) History: Evaluate tube, line or lead position , Pneumothorax Comparison: 06/28/2018 RESULT: 1. Lines, Tubes, and Devices: Left approach PICC. Left thoracostomy catheter. 2. Lungs and Pleura: No substantive pneumothorax. No focal consolidation. No pleural effusion. 3. Cardiomediastinal silhouette: Stable cardiomediastinal contours. 4. Other: No acute osseous abnormality. IMPRESSION: ABOVE. CONSULT Observed: 06/29/2018 Status: COMPLETED Source: [place] 7:11 AM [facility] REPOSITORY HNO ID: [id number] Author: Dion Mtz Service: Pain Management Author Type: Physician Type: Consults Filed: 06/29/2018 7:11 AM Note Text: BECCA MAGANA 62 year old PAIN CONSULTATION: Abdominal pain, colon cancer Pain currently 10/10 in severity, improves to perhaps 8/10 at its best, inadequately relieved, Sharp/aching, aggravated by any movement, palpation. Subjective HPI: 62-year-old male, status post surgery and 06/28/2018 at which time he underwent resection of abdominal wall masses ?3, SBR ?3 with 1 anastomosis, splenectomy, repair of diaphragmatic defect, insertion of left chest tube, gastric duodenostomy tube placement, bilateral myocutaneous flaps, placement of retrocrural mass, with findings of masses of anterior and right lateral abdominal wall, splenic lesions with diaphragmatic extension, now resected. He had presented to [facility] Emergency department on 06/20 with progressive nonradiating periumbilical pain, with findings of concern for bowel obstruction that was managed conservatively. He was seen by Dr. Dhillon on the day of admission who have directly admitted secondary to persistent and worsening abdominal pain, and sought mechanical cause of partial small bowel obstruction. At presentation, he was able to eat, was having bowel movements without bleeding, no nausea, emesis, and also denied pulmonary, and complaints. This patient has an extensive history of metastatic colon carcinoma. He is followed by Dr. Stone in [place] who summarizes his history with his malignancy as follows: 1) Metastatic recurrence of stage III colon cancer. MSI stable. BRAF - A sequence change: [id number] (p.[id number]) was detected at approximately 48% allele proportion. [Reference sequence: ([id number])]. KRAS - No variant detected [Reference?sequence: ([id number]_004985.4)]. NRAS - No variant detected [Reference sequence: ([id number])]. ? Patient referred by ongoing management of metastatic colon cancer. ? HPI: The patient is a 62 yo male who developed abdominal pain around June 2014. His symptoms progressively worsened throughout the spring. He also began losing weight in the spring and this culminated in a hospitalization for what was thought to be diverticulitis in December 2014. He underwent a CT scan which was thought to demonstrated a left lower quadrant abscess. The drain was placed and he was treated with antibiotic treatment. Pain flared and a repeat CT scan on 01/24/15 demonstrated marked inflammatory phlegmonous changes of the proximal sigmoid colon. He therefore underwent a colonoscopy and sigmoid colon resection with lymph node dissection on 01/29/2015. The sigmoid colon was noted to be adherent to the anterior abdominal wall and small bowel. The final pathology demonstrated an invasive moderately differentiated adenocarcinoma, tumor extension through the colonic wall and involving the muscularis propria of the small bowel. The proximal margin resection had a small focus of tumor present at the serosal surface. None of 25 lymph nodes were involved. The patient went on to receive 12 cycles FOLFOX which she finished on 09/13/2015. ? Surveillance CT scan the abdomen and pelvis on January 06, 2016 demonstrated a small omental nodules. He was treated with 4 cycles of FOLFIRI and then underwent exploratory laparotomy, excision of peritoneal/liver/small bowel/mesenteric nodules, heated intraperitoneal chemotherapy (HIPEC) administration for 100 minutes, cystoscopy with bilateral ureteral stent placement on 05/22/2016. His [place] prescription history shows recent MS Contin 15 mg every 12 hours #14, and [place] 5/325#28 both filled on 06/21/2018 at the time of his last hospital discharge. Prior to this, had only one prescription approximately one year ago for [place] #15. ? Pathology: 1. Small bowel peritoneal nodules, excision (A) - Organizing fibrous adhesions. - No evidence of malignancy. 2. Left liver nodule, biopsy (B) - Adenocarcinoma in liver, consistent with colonic primary. 3. Omentum, excision (C) - Infiltrating adenocarcinoma, consistent with colonic primary. 4. Left upper quadrant abdominal wall, biopsy (D) - Infiltrating adenocarcinoma, consistent with colonic primary. 5. Pelvic nodule and omentum, excision (E) - Infiltrating adenocarcinoma, consistent with colonic primary. - One lymph node, negative for malignancy (0/1). 6. Ileal nodule, excision (F) - Infiltrating adenocarcinoma, consistent with colonic primary. ? In end of July/first week of August this year he underwent repeat staging workup (CT and PET) which unfortunately showed liver metastasis and intra-abdominal metastases. ? He recently started back on chemotherapy with FOLFIRI and cetuximab. He's had 2 cycles to date. ? Previous therapy: 1) FOLFOX ?12 cycles completed 09/13/2015. 2) FOLFIRI x4 cycles. 3) Exploratory lap 04/2016 with HIPEC (mitomycin). ? Current therapy: 1) FOLFIRI (with Vectibix--side effects permitting). Current Facility-Administered Medications: prochlorperazine 5 mg injection (COMPAZINE) 5 mg INTRAVENOUS q 6 H PRN Tripp (Res) Sheridan 5 mg at 06/28/18 1209 HYDROmorphone HCl 0.5-1 mg injection (DILAUDID) 0.5-1 mg INTRAVENOUS q 3 H PRN Lai (Res) Ramirez 0.5 mg at 06/29/18 0024 acetaminophen 975 mg CUP (TYLENOL) 975 mg ORAL/FEEDING TUBE QID Lai (Res) Ramirez dextrose 5% in LR infusion (D5-LR) 125 mL/hr INTRAVENOUS CONTINUOUS Lai (Res) Ramirez Last Rate: 125 mL/hr at 06/28/18 2244 125 mL/hr at 06/28/18 224 potassium chloride ER 40 mEq tab(s) (K-DUR, KLOR-CON) 40 mEq ORAL BID Esteban (Res) Gastaldo, DO 40 mEq at 06/27/182016 enoxaparin 40 mg injection (LOVENOX) 40 mg SUBCUTANEOUS DAILY Esteban (Res) Gastaldo, DO 40 mg at 06/28/18 0826 NaCl 0.9% 10 mL 10 mL INTRAVENOUS q 12 H Esteban (Res) Gastaldo, DO 10 mL at 06/28/18 0825 NaCl 0.9% 20 mL 20 mL INTRAVENOUS PRN Esteban (Res) Gastaldo, DO ondansetron 4 mg tab(s) (ZOFRAN) 4 mg ORAL q 6 H PRN Esteban (Res) Gastaldo, DO Or ondansetron (PF) 4 mg injection (ZOFRAN) 4 mg INTRAVENOUS q 6 H PRN Esteban (Res) Gastaldo, DO 4 mg at 06/28/18 0825 minocycline 100 mg cap(s) (MINOCIN, DYNACIN) 100 mg ORAL BID Esteban (Res) Gastaldo, DO 100 mg at 06/28/18 0826 Prescriptions Prior to Admission: XARELTO 20 mg tablet TAKE ONE TABLET BY MOUTH DAILY WITH DINNER. Disp: 30 tablet Rfl: 5 Past Week at Unknown time promethazine (PHENERGAN) 25 mg tablet Take 1 tablet by mouth every 6 hours as needed. FOR NAUSEA (Patient not taking: Reported on 06/26/2018 ) Disp: 20 tablet Rfl: 2 Not Taking dexamethasone (DECADRON) 4 mg tablet TAKE ONE TABLET BY MOUTH TWICE DAILY (Patient not taking: Reported on 06/26/2018) Disp: 10 tablet Rfl: 5 Not Taking minocycline (MINOCIN, DYNACIN) 100 mg capsule Take 100 mg by mouth twice daily. Disp: Rfl: 3 Not Taking potassium chloride ER (K-DUR, KLOR-CON) 20 mEq tablet Take 1 tablet by mouth three times daily. (Patient taking differently: Take 40 mEq by mouth twice daily. ) Disp: 90 tablet Rfl: 2 ondansetron (ZOFRAN) 8 mg tablet Take 1 tablet by mouth every 8 hours as needed for Nausea/Vomiting. (Patient not taking: Reported on 06/26/2018 ) Disp: 30 tablet Rfl: 2 Not Taking Social History Marital status: Spouse name: Years of education: Number of children: Social History Main Topics Smoking status: Former Smoker Packs/day: 0.50 Years: 10.00 Types: Cigarettes Quit date: 01/21/1990 Smokeless tobacco: Never Used Alcohol use: Yes Comment: beer once in awhile Drug use: No Other Topics Concern Caffeine Concern Yes Special Diet No Exercise No FAMILY HISTORY Problem Relation Age of Onset - Colon Cancer Paternal Grandfather 83 - Diabetes Sister PAST SURGICAL HISTORY Procedure Laterality Date - APPENDECTOMY at age 8 - LAP COLECTOMY, 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 with en bloc SB resection - PAST SURGICAL HISTORY OF 05/22/16 wedge liver bx, ileum wedge rsxn, omentectomy, debulking, HIPEC ROS: All of the following reviewed and negative except as noted below: GENERAL: no fever, chills, sweats, weight loss, fatigue, generalized weakness HEENT: no headache, vision changes, eye discomfort, hearing change, ear discomfort, sinus pain, nasal discharge or congestion, oral lesions, soreness, dental problem NECK: no adenopathy, discomfort, change in ROM CHEST: no shortness of breath, dyspnea on exertion, wheezing, cough, sputum production or chest pain HEART: no chest pain, palpitations, syncope ABDOMEN: no nausea, vomiting, constipation, diarrhea, abdominal pain : no dysuria, urgency, frequency, history of stones, incontinence NEURO: no confusion or alteration in consciousness, slurred speech, seizure, focal weakness EXTREMITIES: no new pain, edema, change in ROM HEME: no new adenopathy, bruises, petechiae PSYCH: no depression, anxiety, agitation PHYSICAL EXAMINATION: see below for new or abnormal findings BP 102/67 Pulse 105 Temp 36.8 ?C (98.2 ?F) (Oral) Resp 18 Ht 185.4 cm (6' 1) Wt 86.6 kg (190 lb 15.8 oz) SpO2 95% BMI 25.20 kg/m? BMI 25.20 kg/(m2) GENERAL: well nourished and developed; no acute distress; alert and oriented x 3; intact judgement and insight HEENT: no evidence of trauma; cranial nerves intact; eyes clear EOMI; no hearing deficits apparent; nasal passages unremarkable; throat and mucous membranes clear NECK: supple without lymphadenopathy; no JVD; no thyromegaly CHEST: clear bilaterally to auscultation; normal chest movement; no rales or rhonchi HEART: regular rate and rhythm, normal S1 and S2, no murmurs, clicks, rubs, or gallops ABDOMEN: soft; nondistended; bowel sounds present; no hepatomegaly; no splenomegaly; no tenderness EXTREMITIES: no evidence of clubbing; no cyanosis; no deformity; no joint effusion; no edema NEURO: cranial nerves intact; no focal deficits; no confusion; no tremor; sensorium normal SKIN: no rash; no skin breakdown; no decubitus lesions HEME: no bruising; no adenopathy PSYCH: no evidence of depression; no anxiety; no agitation; no apparent hallucinations ABNORMAL/NEW FINDINGS: NONE CBC: Recent Labs 06/28/18 0450 WBC 4.47 RBC 3.14* HB 9.3* HCT 29.5* PLT 216 MCV 93.9 MCH 29.6 MPV 9.1 RDW 14.2 CMP: Recent Labs 06/28/18 0450 NA 136 K 4.7 CHLOR 102 CO2 29 BUN 8 CREAT 0.97 GLUC 99 CA 8.3* ANION 10 Heme: No results for input(s): RETICP, ABSRETIC, LD, SARAH, FE, TIBC, TRANSFERSAT in the last 24 hours. 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 He is not opiate naive and I do suspect he'll require higher than average opiate use given his underlying malignancy. We'll follow along with you No concerns regarding opiate use Dion Mtz M.D. HEMOGRAM/DIFF Collected: 06/29/2018 Status: F Source: [facility] 3:35 AM HEALTH SYSTEM REPOSITORY TYPE CODE TESTS RESULT OUT OF REFERENCE UNITS RANGE LAB WBC(LOINC) 4.23-9.07 thou/cmm WBC High 16.99 LAB RBC(LOINC) 4.63-6.08 mil/cmm Low RBC 3.65 LAB HGB(LOINC) 13.7-17.5 g/dL Low Hgb 10.9 LAB HCT(LOINC) 40.1-51.0 % Low Hct 34.1 LAB MCV(LOINC) 83.2-95.6 fl MCV 93.4 LAB MCH(LOINC) 25.7-32.2 pg MCH 29.9 LAB MCHC(LOINC 32.3-36.5 % ) Low MCHC 32.0 LAB RDW(LOINC) 11.6-14.4 % RDW 14.2 LAB RDWSD(LOIN 36.1-45.8 fl C) RDW SD High 49.2 LAB PLT(LOINC) 141-365 thou/cmm Platelet 300 LAB MPV(LOINC) 8.7-12.0 fl MPV 9.5 LAB SEG(LOINC) % Seg Neutrophil 89.0 LAB LYMPH(LOIN % C) Lymphocyte 6.0 LAB MNO(LOINC) % Monocyte 4.0 LAB EOSIN(LOIN % C) Eosinophil 1.0 LAB BASO(LOINC % ) Basophil 0.0 LAB SEGN(LOINC 1.78-5.38 thou/cmm ) Abs. High Neut (ANC) 15.12 LAB LYMN(LOINC 0.84-2.85 thou/cmm ) Abs. Lymph 1.02 LAB MONON(LOIN 0.30-0.82 thou/cmm C) Abs. [place] 0.68 LAB EOSN(LOINC 0.04-0.54 thou/cmm ) Abs. Eosin 0.17 LAB BASON(LOIN 0.01-0.08 thou/cmm C) Low Abs. Baso 0.00 LAB RBCM(LOINC ) RBC Morphology Normal Performed By: #### [id number] #### [place] [address] BASIC PANEL Collected: 06/29/2018 Status: F Source: [facility] 3:35 AM HEALTH SYSTEM REPOSITORY TYPE CODE TESTS RESULT OUT OF REFERENCE UNITS RANGE LAB NA(LOINC) 136-145 mEq/L Sodium Blood 137 LAB K(LOINC) 3.5-5.1 mEq/L High Potassium Blood 5.2 LAB CL(LOINC) 98-107 mEq/L Chloride Blood 105 LAB CO2(LOINC) 21-32 mEq/L CO2 Blood 23 LAB GLU(LOINC) 70-99 mg/dL Glucose High Blood 186 LAB BUN(LOINC) 7-18 mg/dL BUN Blood 8 LAB CREA(LOINC 0.67-1.17 mg/dL ) Creatinine Blood 1.00 LAB CA(LOINC) 8.5-10.1 mg/dL Low Calcium Blood 7.8 LAB ANGAP(LOIN 8-16 C) Anion Gap 14 Performed By: #### P8 #### [place] [address] MAGNESIUM BLOOD Collected: 06/29/2018 Status: F Source: [facility] 3:35 AM HEALTH SYSTEM REPOSITORY TYPE CODE TESTS RESULT OUT OF REFERENCE UNITS RANGE LAB MAG(LOINC) 1.6-2.6 mg/dL Magnesium Blood 2.1 Performed By: #### MAG #### [place] [address] PHOSPHORUS BLOOD Collected: 06/29/2018 Status: F Source: [facility] 3:35 AM HEALTH SYSTEM REPOSITORY TYPE CODE TESTS RESULT OUT OF REFERENCE UNITS RANGE LAB PHOS(LOINC 2.5-4.9 mg/dL ) Phosphorus Blood 3.7 Performed By: #### PHOS #### [place] [address] ANES POST Observed: 06/29/2018 Status: COMPLETED Source: [place] 3:25 AM CLINIC OTHER CAMPUS REPOSITORY HNO ID: [id number] Author: Adilson Isbell Service: Anesthesiology Author Type: Physician Type: Anesthesia PostOp Filed: 06/29/2018 3:26 AM Note Text: POST ANESTHESIA EVALUATION NOTE SERVICE DATE: 06/29/2018 SERVICE TIME:3:25 AM : 1955 Vitals: 06/28/18203006/28/18212906/28/18225306/29/18318 Temp: 36.7 ?C (98.1 ?F) 37.1 ?C (98.8 ?F) 36.8 ?C (98.2 ?F) 36.8 ?C (98.2 ?F) 06/28/18212906/28/18214406/28/18225306/29/18318 BP: 112/68 117/72 131/74 102/67 06/28/18212906/28/18214406/28/18225306/29/18318 Pulse: 89 91 103 105 06/28/18212906/28/18214406/28/18225306/29/18318 Resp: 19 06/28/18212906/28/18214406/28/18225306/29/18318 SpO2: 100% 100% 100% 95% Validated Vital Signs: Yes POST ANES STATUS: No apparent anesthetic complications. The patient is appropriately hydrated with stable respiratory and cardiovascular status. Patient has safe and adequate airway control. The patient has appropriate pain relief and no significant post operative nausea or vomiting. The patient has achieved baseline mental status. Intra-Operative Events: No Significant Anesthesia Events Further assessment by Anesthesia Service: None Other Remarks: SIGNATURE: Adilson Isbell MD PATIENT NAME: Becca Magana DATE: June 29, 2018 TIME: 3:25 AM PAGER/CONTACT #: CHEST 1 VIEW Observed: 06/28/2018 Status: F Source: [facility] 8:44 PM HEALTH SYSTEM REPOSITORY Performed at [facility] APPROVED BY: Albin Reilly MD EXAMINATION: CHEST RADIOGRAPH (SINGLE VIEW AP OR PA) Clinical History: Evaluate tube, line or lead position , Pneumothorax M: [id number]_4 Comparison: 01/26/2015 chest film. 06/27/2018 CT RESULT: Lines, tubes, and devices: Left side PICC line. Elevated right hemidiaphragm. There is a tubing seen entering the left lower chest or left upper quadrant abdomen as seen on a semiupright portable exam. Correlation with procedure history. Lungs and pleura: No consolidation. Pulmonary nodule seen on the recent CT are below the threshold of plain film imaging. No pleural effusion. Cardiomediastinal silhouette: Normal cardiomediastinal silhouette. Other: IMPRESSION: No acute radiographic abnormality. See discussion above NURSING PROG Observed: 06/28/2018 Status: COMPLETED Source: [place] 8:30 PM [facility] REPOSITORY HNO ID: [id number] Author: Geraldo (Rn) Jacob RN Service: Nursing Author Type: Registered Nurse Type: Nursing Progress Note Filed: 06/28/2018 8:43 PM Note Text: Chest x ray done. Body warmer placed on patient scds on pt and functioning Dr isbell anesthesia by to see patient and evaluate BRIEF OP NOT Observed: 06/28/2018 Status: COMPLETED Source: [place] 8:06 PM [facility] REPOSITORY HNO ID: [id number] Author: Lai Ramirez Service: General Surgery Author Type: Resident Type: Brief Op Note Filed: 06/28/2018 8:35 PM Note Text: BRIEF OPERATIVE / PROCEDURE NOTE LOG ID: [id number] SURGERY/PROCEDURE DATE: 06/28/2018 INCISION/PROCEDURE START TIME: 2:44 PM INCISION CLOSE/PROCEDURE END TIME: 7:46 PM SURGEON(S)/PROCEDURALIST(S) AND PROFESSOR OF POULTRY SCIENCE(S): Surgeon(s) and Role: * Justin Dhillon - Primary * Lai Ramirez - Resident - Assisting No Additional Staff SURGERY/PROCEDURE(S): 1) Exploratory Laparotomy 2) Resection of Abdominal Wall Masses x3 3) SBR x3 with 1* Anastomosis 4) Splenectomy 5) Repair of Diaphragmatic Defect 6) Insertion of Left Chest Tube 7) Gastroduodenostomy Tube Placement 8) Bilateral Myocutaneous Flaps 9) Placement of Retrorectus Mesh ANESTHESIA: General FINDINGS: masses of anterior and right lateral abdominal wall, splenic lesions with diaphragmatic extension ESTIMATED BLOOD LOSS: 100 mls IVF: 3000cc UOP: 900cc SPECIMENS: Abdominal Wall masses x3, SBR x3 COMPLICATIONS: None PRE-OP/PRE-PROCEDURE DIAGNOSIS: Metastatic Colon Cancer, Carcinomatosis POST-OP/POST-PROCEDURE DIAGNOSIS: Carcinomatosis (HCC) [C80.0] same SIGNATURE: Lai Ramirez MD PATIENT NAME: Becca Magana DATE: June 28, 2018 TIME: 8:06 PM PAGER/CONTACT #: LIBRA SUMNERG Observed: 06/28/2018 Status: COMPLETED Source: [place] 5:03 PM [facility] REPOSITORY HNO ID: [id number] Author: Anson (Rn) DENAE Morejon Service: Nursing Author Type: Registered Nurse Type: Nursing Progress Note Filed: 06/28/2018 5:03 PM Note Text: FAMILY UPDATED ON PROGRESS. ANES PREOP Observed: 06/28/2018 Status: COMPLETED Source: [place] 4:09 PM [facility] REPOSITORY HNO ID: [id number] Author: Crescencio Dial Service: Anesthesiology Author Type: Physician Type: Anesthesia PreOp Filed: 06/28/2018 4:11 PM Note Text: ANESTHESIOLOGY DAY OF SURGERY NOTE SERVICE DATE: 06/28/2018 SERVICE TIME: 4:09 PM : 1955 Procedure(s) (LRB): EXPLORATORY LAPAROTOMY, (N/A) POSSIBLE BOWEL RESECTION, POSSIBLE STOMA, (N/A) POSSIBLE BLOOD PRODUCTS, (N/A) POSSIBLE G-TUBE, (N/A) SPLENECTOMY ADULT (N/A) Surgeon(s): Justin Hoyt (Res) James Estimated body mass index is 25.2 kg/m? as calculated from the following: Height as of this encounter: 185.4 cm (6' 1). Weight as of this encounter: 86.6 kg (190 lb 15.8 oz). 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) Carcinomatosis (Hcc) PAST MEDICAL HISTORY Diagnosis Date - Colon cancer (HCC) PAST SURGICAL HISTORY Procedure Laterality Date - APPENDECTOMY at age 8 - LAP COLECTOMY, 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 with en bloc SB resection - PAST SURGICAL HISTORY OF 05/22/16 wedge liver bx, ileum wedge rsxn, omentectomy, debulking, HIPEC FAMILY HISTORY Problem Relation Age of Onset - Colon Cancer Paternal Grandfather 83 - Diabetes Sister Social History: Social History Substance Use Topics - Smoking status: Former Smoker Packs/day: 0.50 Years: 10.00 Types: Cigarettes Quit date: 01/21/1990 - Smokeless tobacco: Never Used - Alcohol use Yes Comment: beer once in awhile No current facility-administered medications on file prior to encounter. Current Outpatient Prescriptions on File Prior to Encounter: XARELTO 20 mg tablet TAKE ONE TABLET BY MOUTH DAILY WITH DINNER. promethazine (PHENERGAN) 25 mg tablet Take 1 tablet by mouth every 6 hours as needed. FOR NAUSEA (Patient not taking: Reported on 06/26/2018 ) dexamethasone (DECADRON) 4 mg tablet TAKE ONE TABLET BY MOUTH TWICE DAILY (Patient not taking: Reported on 06/26/2018) minocycline (MINOCIN, DYNACIN) 100 mg capsule Take 100 mg by mouth twice daily. potassium chloride ER (K-DUR, KLOR-CON) 20 mEq tablet Take 1 tablet by mouth three times daily. (Patient taking differently: Take 40 mEq by mouth twice daily. ) ondansetron (ZOFRAN) 8 mg tablet Take 1 tablet by mouth every 8 hours as needed for Nausea/Vomiting. (Patient not taking: Reported on 06/26/2018 ) Current Facility-Administered Medications: [MAR Hold due to Transfer] ertapenem 1 g in NaCl 0.9% 100 mL MB+ (INVanz) 1 g INTRAVENOUS Pre-Op Once Lai (Res) James [MAR Hold due to Transfer] prochlorperazine 5 mg injection (COMPAZINE) 5 mg INTRAVENOUS q 6 H PRN Tripp (Res) [place] 5 mg at 06/28/18 1209 ketamine 39.95 mg injection (KETALAR) 0.5 mg/kg/dose ([place]) INTRAVENOUS ONCE Noaman Ali lidocaine iv infusion 2 g in D5W 250 mL 2.4 mg/kg/hr ([place]) INTRAVENOUS ONCE Noaman Ali magnesium sulfate 2.4 g in NaCl 0.9% 100 mL 2.4 g INTRAVENOUS ONCE Noaman Ali bupivacaine liposome (EXPAREL) 266 mg (20 mL) + bupivacaine 0.25% 30 mL in 0.9% NaCl 150 mL bag for wound infiltration INFILTRATION ONCE Noaman Ali ketamine 500 mg in NaCl 0.9% 100 mL (KETALAR) 10 mcg/kg/min INTRAVENOUS ONCE Noaman Ali NaCl 0.9% irrigation solution X (OR/PROCEDURE) PRN Noaman Ali 1,000 mL at 06/28/18 1525 water for irrigation irrigation X (OR/PROCEDURE) PRN Noaman Ali 1,000 mL at 06/28/18 1526 [MAR Hold due to Transfer] acetaminophen 975 mg tab(s) (TYLENOL) 975 mg ORAL QID Lai (Res) Ramirez 975 mg at 06/28/18824 [MAR Hold due to Transfer] senna-docusate 8.6-50 mg 1 tablet (SENNA-S) 1 tablet ORAL BID Lai (Res) Ramirez 1 tablet at 06/27/182016 [MAR Hold due to Transfer] morphine 4 mg injection 4 mg INTRAVENOUS q 4 H PRN Lai (Res) Ramirez 4 mg at 06/28/18824 [MAR Hold due to Transfer] oxyCODONE IR 10-15 mg tab(s) (ROXICODONE) 10-15 mg ORAL q 4 H PRN Lai (Res) Ramirez 15 mg at 06/27/182112 [MAR Hold due to Transfer] dextrose 5% in LR infusion (D5- LR) 125 mL/hr INTRAVENOUS CONTINUOUS Lai (Res) Ramirez Last Rate: 125 mL/hr at 06/28/18825 125 mL/hr at 06/28/18825 [MAR Hold due to Transfer] potassium chloride ER 40 mEq tab(s) (K-DUR, KLOR-CON) 40 mEq ORAL BID Esteban (Res) Gastaldo, DO 40 mEq at 06/27/182016 [MAR Hold due to Transfer] enoxaparin 40 mg injection (LOVENOX) 40 mg SUBCUTANEOUS DAILY Esteban (Res) Gastaldo, DO 40 mg at 06/28/18825 [MAR Hold due to Transfer] NaCl 0.9% 10 mL 10 mL INTRAVENOUS q 12 H Esteban (Res) Gastaldo, DO 10 mL at 06/28/18824 [MAR Hold due to Transfer] NaCl 0.9% 20 mL 20 mL INTRAVENOUS PRN Esteban (Res) Gastaldo, DO [MAR Hold due to Transfer] ondansetron 4 mg tab(s) (ZOFRAN) 4 mg ORAL q 6 H PRN Esteban (Res) Gastaldo, DO Or [MAR Hold due to Transfer] ondansetron (PF) 4 mg injection (ZOFRAN) 4 mg INTRAVENOUS q 6 H PRN Esteban (Res) Gastaldo, DO 4 mg at 06/28/18824 [MAR Hold due to Transfer] minocycline 100 mg cap(s) (MINOCIN, DYNACIN) 100 mg ORAL BID Esteban (Res) Gastaldo, DO 100 mg at 06/28/18825 [MAR Hold due to Transfer] iv contrast (radiology procedure) INTRAVENOUS DIRECTED PRN Esteban (Res) Gastaldo, DO Allergies: ALLERGIES No Known Allergies DOS EXAM: Adequate NPO status: Yes Anesthetic risks, benefits, alternatives, personnel and consent discussed: Yes Patient agrees to proceed: Yes Previous Anesthesia: No history of adverse event. Airway Assessment: MP 2; Neck ROM: Full ROM without neurologic symptoms; Airway Evaluation: [place] Present Symptoms of Sleep Apnea: Age over 50 (62 year old) and Male gender Dentition: Teeth intact Additional Physical Exam: Lungs: Patient health status unchanged since recent history and physical. See history and physical for exam findings. Cardiac: Patient health status unchanged since recent history and physical. See history and physical for exam findings. Additional Pertinent Findings: amenia HANDH 9.3/29.5 Blood Products: Not anticipated for this procedure. Anesthetic Plan: General, Standard ASA Monitors Pain Management Plan: Parenteral or Oral, Peripheral Nerve Block and TAP rectus blocks bilaterally ASA Class: 3 Other Medical Problems: None Chronic Beta Liseth medication administered within 24 hours: N/A I have interviewed and examined the patient. I have reviewed the medical record and/or the pre-anesthesia evaluation, pertinent labs, and test results. Significant changes in the patient's condition since the History and Physical, not otherwise documented in primary service progress notes: No This contains updated information obtained within 48 hours of Surgery/Procedure. SIGNATURE: Crescencio Dial MD PATIENT NAME: Becca Magana DATE: June 28, 2018 TIME: 4:09 PM CSN: [id number] NURSING PROG Observed: 06/28/2018 Status: COMPLETED Source: [place] 4:07 PM [facility] REPOSITORY HNO ID: [id number] Author: Anson HernándezRn) DENAE Morejon Service: Nursing Author Type: Registered Nurse Type: Nursing Progress Note Filed: 06/28/2018 5:03 PM Note Text: FAMILY UPDATED ON PROGRESS. NURSING PROG Observed: 06/28/2018 Status: COMPLETED Source: [place] 11:45 AM [facility] REPOSITORY HNO ID: [id number] Author: Nusrat Fairchild) DENAE Ivey Service: Nursing Author Type: Registered Nurse Type: Nursing Progress Note Filed: 06/28/2018 11:47 AM Note Text: Nursing Progress Note Patient Name: Becca Magana Patient Location: [place] [address] [address]* Daily Note: Patient awaiting surgery with family. C/O continued nausea - dose of zofran IVP was given at 0825 worked well initially, but patient stated that it wore off quickly. Surgery aware and awaiting orders This note was completed by: Nusrat Ivey RN NUTRITION Observed: 06/28/2018 Status: COMPLETED Source: [place] 9:13 AM [facility] REPOSITORY HNO ID: [id number] Author: Steph Pisano Service: Nutrition Therapy Author Type: Registered Dietitian Type: Nutrition Filed: 06/28/2018 3:04 PM Note Text: NUTRITION THERAPY INITIAL ASSESSMENT SERVICE DATE: 06/28/2018 SERVICE TIME: 3:03 PM RECOMMENDED MALNUTRITION DIAGNOSIS: UNABLE TO IDENTIFY MALNUTRITION AT THIS TIME NUTRITION CARE PLAN: Problem, Etiology and Signs/Symptoms: Increased nutrient needs (protein/kcal) related to elevated metabolic demand as evidenced by history of cancer with suspicion of lung mets. Intervention: Unable to see patient today d/t OR. Will add supplements and reassess/adjsut as appropriate. - Ensure Clear BID to provide 240 kcals and 8 grams protein per serving Monitor and Evaluation: Goal: Meet >75% of estimated needs Monitor fluid/electrolyte balance Monitor labs, I/Os, vital signs, weight Discharge Nutrition Recommendations: To be determined Reason for Assessment: previous malnutrition Per HPI: 62 year old M with a PMHx colon cancer status post sigmoidectomy in January 2015. At the time, tumor extended into to the abdominal wall involving the muscularis propria of the small bowel. Patient underwent chemotherapy with FOLFOX finished in August 2015. CT scan in January 2016 showed small peritoneal omental metastases. Patient underwent additional chemotherapy with FOLFIRI, exploratory laparotomy and further resection of residual tumor with HIPEC intraperitoneal chemotherapy (mitomycin C) and bilateral ureteral stent placement on May 22, 2016. Remained free of disease until August 2017. Repeat CT scan showed liver metastasis along with intra-abdominal metastasis. He started on chemotherapy FOLFIRI with cetuximab since spring 2017. His last cycle of chemotherapy was 3 weeks ago. He presented to [facility] ED on 06/20 with progressively worsening severe nonradiating vance-umbilical pain, concern for bowel obstruction, was managed conservatively and subsequently discharged. ? Per pt, Dr Dhillon reviewed his new images and directly admitted him to [facility]. This afternoon pt admits to some persistent worsening abdominal pain, worse with movement. He is tolerating a diet, and states he is having softer than normal BM but no bloody stools or melena. Denies CP/SOB, cough, wheezing, urinary problems. CT C/A/P --> two new R lung lesions concerning for mets, 8cm mass superior to umbilicus, 6.5cm pelvic mass, new splenic leasion. OR today for Ex Lap, possible Rxn/Stoma/GT. 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) Carcinomatosis (Hcc) PAST MEDICAL HISTORY Diagnosis Date - Colon cancer (HCC) PAST SURGICAL HISTORY Procedure Laterality Date - APPENDECTOMY at age 8 - LAP COLECTOMY, 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 with en bloc SB resection - PAST SURGICAL HISTORY OF 05/22/16 wedge liver bx, ileum wedge rsxn, omentectomy, debulking, HIPEC Social History Marital status: Spouse name: Years of education: Number of children: Social History Main Topics Smoking status: Former Smoker Packs/day: 0.50 Years: 10.00 Types: Cigarettes Quit date: 01/21/1990 Smokeless tobacco: Never Used Alcohol use: Yes Comment: beer once in awhile Drug use: No Other Topics Concern Caffeine Concern Yes Special Diet No Exercise No Current Diet Order DIET NPO Order Specific Question: NPO Restrictions Answer: EXCEPT MEDS Was on CLD. Lines and Drains: Implanted Vascular Access Device Single Port 06/26/18 1715 Left (Active) Nutritional Intake Prior to Admission: Suspect < or = to 75% estimated energy needs over the past 6 month(s) AEB wt change GI symptoms: abdominal pain, nausea, vomiting Nutrition Abdominal Exam:, abdomen is soft and bowel sounds are hypoactive per nursing ANTHROPOMETRICS Height: 185.4 cm (6' 1) Admission Weight: 86.6 kg (190 lb 15.8 oz) Current Weight: 86.6 kg (190 lb 15.8 oz) Body mass index is 25.2 kg/m?. overweight - Weight has decreased by 10.5 kg over 7 months representing 10.8 % weight change potentially clinically significant but does not meet criteria to support a malnutrition diagnosis - Weight has decreased by 5 kg over 3 months representing 5.5% weight change potentially clinically significant but does not meet criteria to support a malnutrition diagnosis - Weight has not significantly changed over the past month. Last Wt 06/27/18 : 86.6 kg (190 lb 15.8 oz) - bed 06/26/18 : 86.2 kg (190 lb) - gen surg 06/24/18 : 87.1 kg (192 lb) - hem/onc office 06/17/18 : 85.7 kg (189 lb) - infusion center 06/03/18 : 87.5 kg (193 lb) - hem/onc office 05/20/18 : 87.1 kg (192 lb) - hem/onc office 04/23/18 : 89.4 kg (197 lb) - hem/onc office 04/08/18 : 87.1 kg (192 lb)- hem.onc office 04/08/18 : 87.1 kg (192 lb) - infusion center 04/05/18 : 85.3 kg (188 lb) - hem/onc office 03/26/18 : 90.3 kg (199 lb) - hem/onc office 03/22/18 : 90.3 kg (199 lb) - hem/onc office 03/11/18 : 91.6 kg (202 lb) 02/25/18 : 91.2 kg (201 lb) 02/22/18 : 91.4 kg (201 lb 8 oz) 01/29/18 : 94.8 kg (209 lb) 01/17/18 : 91.6 kg (202 lb) 12/12/17 : 95.7 kg (211 lb) 11/27/17 : 97.1 kg (214 lb) - hem/onc office 11/14/17 : 95.9 kg (211 lb 8 oz) 10/30/2017 97.5 kg (215 lb) 10/03/2017 95.9 kg (211 lb 8 oz) 09/18/2017 95.3 kg (210 lb) 09/05/2017 96.6 kg (213 lb) 08/21/2017 96.6 kg (213 lb) 06/20/2017 96.8 kg (213 lb 8 oz) [place] Body Weight: 84kg Resting Metabolic Rate: 1714 Estimated kilocalorie needs: 2520 kilocalories determined by 30 kcal/kg Estimated protein needs: 101-134 grams determined by 1.2-1.6 g/kg [place] weight Estimated fluid needs: 2100 milliliters based on 25 mL/kg NUTRITION FOCUSED PHYSICAL EXAM: Unable to perform exam due to patient unavailable, will re- attempt during reassessment. Temperature Max in 24 hours: Temp (24hrs), Av.4 ?C (97.6 ?F), Min:36.1 ?C (97 ?F), Max:36.7 ?C (98.1 ?F) BP 105/70 Pulse 81 Temp 36.7 ?C (98.1 ?F) (Temporal Artery) Resp 18 Ht 185.4 cm (6' 1) Wt 86.6 kg (190 lb 15.8 oz) SpO2 98% BMI 25.20 kg/m? Recent Labs 06/28/18 0450 06/27/18 0320 06/26/18 1735 GLUC 99 77 96 BUN 8 6* 6* CREAT 0.97 0.87 0.82 NA 136 140 140 K 4.7 4.3 4.0 CHLOR 102 109* 109* CO2 29 25 27 ALB -- 2.2* 2.3* PREALB -- -- 10.5* HB 9.3* 9.1* 9.2* HCT 29.5* 28.6* 27.7* WBC 4.47 3.73* 4.03* Potential Signs of Inflammation: leukopenia, hypoalbuminemia, low prealbumin and chronic condition ALLERGIES No Known Allergies Current Facility-Administered Medications: [MAR Hold due to Transfer] ertapenem 1 g in NaCl 0.9% 100 mL MB+ (INVanz) 1 g INTRAVENOUS Pre-Op Once [MAR Hold due to Transfer] prochlorperazine 5 mg injection (COMPAZINE) 5 mg INTRAVENOUS q 6 H PRN ketamine 39.95 mg injection (KETALAR) 0.5 mg/kg/dose ([place]) INTRAVENOUS ONCE lidocaine iv infusion 2 g in D5W 250 mL 2.4 mg/kg/hr ([place]) INTRAVENOUS ONCE magnesium sulfate 2.4 g in NaCl 0.9% 100 mL 2.4 g INTRAVENOUS ONCE bupivacaine liposome (EXPAREL) 266 mg (20 mL) + bupivacaine 0.25% 30 mL in 0.9% NaCl 150 mL bag for wound infiltration INFILTRATION ONCE ketamine 500 mg in NaCl 0.9% 100 mL (KETALAR) 10 mcg/kg/min INTRAVENOUS ONCE [MAR Hold due to Transfer] acetaminophen 975 mg tab(s) (TYLENOL) 975 mg ORAL QID [MAR Hold due to Transfer] senna-docusate 8.6-50 mg 1 tablet (SENNA-S) 1 tablet ORAL BID [MAR Hold due to Transfer] morphine 4 mg injection 4 mg INTRAVENOUS q 4 H PRN [MAR Hold due to Transfer] oxyCODONE IR 10-15 mg tab(s) (ROXICODONE) 10-15 mg ORAL q 4 H PRN [MAR Hold due to Transfer] dextrose 5% in LR infusion (D5- LR) 125 mL/hr INTRAVENOUS CONTINUOUS [SEP Hold due to Transfer] potassium chloride ER 40 mEq tab(s) (K-DUR, KLOR-CON) 40 mEq ORAL BID [MAR Hold due to Transfer] enoxaparin 40 mg injection (LOVENOX) 40 mg SUBCUTANEOUS DAILY [MAR Hold due to Transfer] NaCl 0.9% 10 mL 10 mL INTRAVENOUS q 12 H [MAR Hold due to Transfer] NaCl 0.9% 20 mL 20 mL INTRAVENOUS PRN [MAR Hold due to Transfer] ondansetron 4 mg tab(s) (ZOFRAN) 4 mg ORAL q 6 H PRN Or [MAR Hold due to Transfer] ondansetron (PF) 4 mg injection (ZOFRAN) 4 mg INTRAVENOUS q 6 H PRN [MAR Hold due to Transfer] minocycline 100 mg cap(s) (MINOCIN, DYNACIN) 100 mg ORAL BID [MAR Hold due to Transfer] iv contrast (radiology procedure) INTRAVENOUS DIRECTED PRN Date 06/27/18699 - 06/28/1865806/28/18699 - 06/29/18 0659 Shift 7652-1219 5122-3439 5946-6571 24 Hour Total 3858-0578 5945-5840 5749-8422 24 Hour Total I N T A K E PO 240 240 PO 240 240 Shift Total 240 240 O U T P U T Urine 500 200 700 Void (ml) 500 200 700 Shift Total 500 200 700 Weight (kg) 86.6 86.6 86.6 86.6 86.6 86.6 86.6 86.6 Vitamin and Mineral Labs in the past year:No results for input(s): CHROMIUM, COPPER, MANGANESE, SELENIUM, VITAMINA, VITB1, VITB2, VITB6, B12, METHYLMAL, VITD25, VITAMINE, VITAK, ZINC, TIBC, FE, SARAH in the last 8784 hours. MNT Billing Type: Initial Assess/15 min 3 units SIGNATURE: Steph Pisano RD, LD PATIENT NAME: Becca Magana DATE: June 28, 2018 TIME: 9:13 AM PAGER: [phone] PROGRESS Observed: 06/28/2018 Status: COMPLETED Source: [place] 6:30 AM CLINIC OTHER CAMPUS REPOSITORY HNO ID: [id number] Author: Lia (Sammie) James Service: General Surgery Author Type: Resident Type: Progress Notes Filed: 06/28/2018 7:24 AM Note Text: Attestation signed by Justin Dhillon at 06/28/2018 11:15 AM Attending Note I personally saw and examined the patient. I reviewed the resident's note. I agree with the resident's assessment and plan with the following revisions and/or additions: plan for OR today Signature: Justin Dhillon MD Date: 06/28/2018 Time: 11:15 AM Elective General Surgery Progress Note SERVICE DATE: 06/28/2018 Elective General Surgery Service Pager: For questions or concerns Mon-Fri 6a-5p please page [phone]. After 5pm and on Weekends and Holidays, please page [phone] if in ICU or [phone] if on RNF. SUBJECTIVE: NAEON, persistent abdominal pain, emesis yesterday with PO contrast, nausea improved Tolerating diet DIET NPO Nausea No Emesis No Flatus Yes Bowel movement Yes Pain Controlled Yes Ambulating Yes OBJECTIVE: Vitals: Temp (24hrs), Av.5 ?C (97.7 ?F), Min:36.1 ?C (97 ?F), Max:36.9 ?C (98.4 ?F) BP 116/70 Pulse 85 Temp 36.5 ?C (97.7 ?F) (Oral) Resp 18 Ht 185.4 cm (6' 1) Wt 86.6 kg (190 lb 15.8 oz) SpO2 100% BMI 25.20 kg/m? O2 Therapy: Room Air IANDO: Date 06/27/18 07 - 06/28/18 0659 06/28/18 0700 - 06/29/18 0659 Shift 8436-0546 6640-2965 4338-6831 24 Hour Total 7964-9658 8419-3887 2014-6034 24 Hour Total I N T A K E PO 240 240 PO 240 240 Shift Total 240 240 O U T P U T Urine 500 200 700 Void (ml) 500 200 700 Shift Total 500 200 700 Weight (kg) 86.6 86.6 86.6 86.6 86.6 86.6 86.6 86.6 MEDICATIONS Current Facility-Administered Medications: acetaminophen 975 mg tab(s) (TYLENOL) 975 mg ORAL QID senna-docusate 8.6-50 mg 1 tablet (SENNA-S) 1 tablet ORAL BID morphine 4 mg injection 4 mg INTRAVENOUS q 4 H PRN oxyCODONE IR 10-15 mg tab(s) (ROXICODONE) 10-15 mg ORAL q 4 H PRN dextrose 5% in LR infusion (D5-LR) 125 mL/hr INTRAVENOUS CONTINUOUS potassium chloride ER 40 mEq tab(s) (K-DUR, KLOR-CON) 40 mEq ORAL BID enoxaparin 40 mg injection (LOVENOX) 40 mg SUBCUTANEOUS DAILY NaCl 0.9% 10 mL 10 mL INTRAVENOUS q 12 H NaCl 0.9% 20 mL 20 mL INTRAVENOUS PRN ondansetron 4 mg tab(s) (ZOFRAN) 4 mg ORAL q 6 H PRN Or ondansetron (PF) 4 mg injection (ZOFRAN) 4 mg INTRAVENOUS q 6 H PRN minocycline 100 mg cap(s) (MINOCIN, DYNACIN) 100 mg ORAL BID iv contrast (radiology procedure) INTRAVENOUS DIRECTED PRN Labs: Recent Labs 06/28/18 0450 06/27/18 0320 06/26/18 1735 NA -- 140 140 K -- 4.3 4.0 CHLOR -- 109* 109* CO2 -- 25 27 BUN -- 6* 6* CREAT -- 0.87 0.82 GLUC -- 77 96 ANION -- 10 8 CA -- 8.2* 8.3* ALB -- 2.2* 2.3* AST -- 25 30 ALT -- 23 24 ALKPHOS -- 73 78 TBILI -- 0.2 0.3 WBC 4.47 3.73* 4.03* HB 9.3* 9.1* 9.2* HCT 29.5* 28.6* 27.7* PLT 216 182 179 Exam: GENERAL: No distress, Alert NEURO: AANDOx3, CN II-XII grossly intact HEENT: normocephalic, atraumatic LUNGS: Unlabored breathing CARDIAC: Regular rate and rhythm as above ABDOMEN: Soft, ND, TTP mid-abdomen, no PS EXTREMITIES: HEDRICK, No deformities, No edema SKIN: Skin color, texture, turgor normal, No rashes or lesions ASSESSMENT AND PLAN: Active Hospital Problems Diagnosis Date Noted - Carcinomatosis (HCC) 06/26/2018 Overview Note: Added automatically from request for surgery [id number] 62 year old male with Metastatic Sigmoid Colon cancer and Carcinomatosis s/p Sigmoidectomy, Wedge Liver Rxn, SBR, Omentectomy, Debulking, and HIPEC in 2014 and 2015 ? - NPO/IVF - CEA 11.7 - CT C/A/P --> two new R lung lesions concerning for mets, 8cm mass superior to umbilicus, 6.5cm pelvic mass, new splenic leasions - Lvx for DVT ppx - OR today for Ex Lap, possible Rxn/Stoma/GT SIGNATURE: Lai Ramirez MD PATIENT NAME: Becca Magana DATE: June 28, 2018 TIME: 6:31 AM Pager: Elective General Surgery Service Pager: For questions or concerns Mon-Fri 6a-5p please page [phone]. After 5pm and on Weekends and Holidays, please page [phone] if in ICU or [phone] if on RNF. HEMOGRAM/DIFF Collected: 06/28/2018 Status: F Source: [facility] 4:50 AM HEALTH SYSTEM REPOSITORY TYPE CODE TESTS RESULT OUT OF REFERENCE UNITS RANGE LAB WBC(LOINC) 4.23-9.07 thou/cmm WBC 4.47 LAB RBC(LOINC) 4.63-6.08 mil/cmm Low RBC 3.14 LAB HGB(LOINC) 13.7-17.5 g/dL Low Hgb 9.3 LAB HCT(LOINC) 40.1-51.0 % Low Hct 29.5 LAB MCV(LOINC) 83.2-95.6 fl MCV 93.9 LAB MCH(LOINC) 25.7-32.2 pg MCH 29.6 LAB MCHC(LOINC 32.3-36.5 % ) Low MCHC 31.5 LAB RDW(LOINC) 11.6-14.4 % RDW 14.2 LAB RDWSD(LOIN 36.1-45.8 fl C) RDW SD High 48.9 LAB PLT(LOINC) 141-365 thou/cmm Platelet 216 LAB MPV(LOINC) 8.7-12.0 fl MPV 9.1 LAB SEG(LOINC) % Seg Neutrophil 49.8 LAB IGRE(LOINC % ) Immature Grans 1.10 LAB LYMPH(LOIN % C) Lymphocyte 28.2 LAB MNO(LOINC) % Monocyte 14.5 LAB EOSIN(LOIN % C) Eosinophil 5.1 LAB BASO(LOINC % ) Basophil 1.3 LAB SEGN(LOINC 1.78-5.38 thou/cmm ) Abs. Neut (ANC) 2.23 LAB IGAB(LOINC 0.00-0.05 thou/cmm ) Abs Immature Grans 0.05 LAB LYMN(LOINC 0.84-2.85 thou/cmm ) Abs. Lymph 1.26 LAB MONON(LOIN 0.30-0.82 thou/cmm C) Abs. [place] 0.65 LAB EOSN(LOINC 0.04-0.54 thou/cmm ) Abs. Eosin 0.23 LAB BASON(LOIN 0.01-0.08 thou/cmm C) Abs. Baso 0.06 Performed By: #### [id number] #### [place] [id number] BASIC PANEL Collected: 06/28/2018 Status: F Source: [facility] 4:50 AM HEALTH SYSTEM REPOSITORY TYPE CODE TESTS RESULT OUT OF REFERENCE UNITS RANGE LAB NA(LOINC) 136-145 mEq/L Sodium Blood 136 LAB K(LOINC) 3.5-5.1 mEq/L Potassium Blood 4.7 LAB CL(LOINC) 98-107 mEq/L Chloride Blood 102 LAB CO2(LOINC) 21-32 mEq/L CO2 Blood 29 LAB GLU(LOINC) 70-99 mg/dL Glucose Blood 99 LAB BUN(LOINC) 7-18 mg/dL BUN Blood 8 LAB CREA(LOINC 0.67-1.17 mg/dL ) Creatinine Blood 0.97 LAB CA(LOINC) 8.5-10.1 mg/dL Low Calcium Blood 8.3 LAB ANGAP(LOIN 8-16 C) Anion Gap 10 Performed By: #### P8 #### [facility] [address] [place] [id number] OPERATIVE NO Observed: 06/28/2018 Status: COMPLETED Source: [place] 12:00 AM CLINIC OTHER CAMPUS REPOSITORY HNO ID: [id number] Author: Justin Dhillon Service: General Surgery Author Type: Physician Type: Operative Report Filed: 07/01/2018 11:40 PM Note Text: [facility] - Operative Report BECCA MAGANA A : 1955 AGE: 62. SEX: M PATIENT TYPE: I HOSP SVC: [facility] LOCATION: [facility] ATTENDING PHYSICIAN: JUSTIN DHILLON CSN NUMBER: [id number] DATE OF SURGERY/PROCEDURE: 06/28/2018 INCISION/PROCEDURE START TIME: 2:44 PM INCISION CLOSE/PROCEDURE END TIME: 7:46 PM PREOPERATIVE DIAGNOSIS: Metastatic colorectal cancer. POSTOPERATIVE DIAGNOSIS: Metastatic colorectal cancer. SURGEON: Justin Dhillon MD PROFESSOR OF POULTRY SCIENCE: Lai Ramirez M.D. SURGERY/PROCEDURE: 1. Exploratory laparotomy. 2. Lysis of adhesions greater than 30 minutes. 3. Excision of abdominal wall mass x2. 4. Small-bowel resection x3 with primary anastomosis. 5. Excision of peritoneal nodule. 6. Splenectomy. 7. G-tube placement. 8. Creation of bilateral myofascial cutaneous muscle flaps. 9. Wound VAC placement. ANESTHESIA: General endotracheal. ESTIMATED BLOOD LOSS: 100. INDICATION FOR PROCEDURE: This is a 62-year-old male with metastatic colon cancer. He had undergone a previous HIPEC and had recurrence in his abdominal wall and several spots in his abdomen. It all appeared to be resectable on CT scans. He was counseled on the need for exploratory laparotomy. Risks and benefits of the procedure including, but not exclusive to bleeding, infection, possibility of anastomotic leak were discussed with him and he elected to undergo the procedure. DESCRIPTION OF PROCEDURE: After informed consent was obtained, patient was brought to the operating room and placed on operating room table in supine position. After induction of general anesthetic and the preoperative check was completed, the abdomen was prepped and draped in sterile fashion. An incision was made inferiorly to the abdominal wall mass and dissected down to the fascia. The fascia was opened in midline and peritoneal cavity was then entered. There were adhesions to the abdominal wall. We lysed adhesions for greater than 30 minutes with a combination of sharp and electrocautery dissection. After this, we were able to free a plane into the abdomen identified that there was 2 loops of small bowel adherent to the patient's abdominal wall mass. We then created an incision superior to this mass and entered the abdominal cavity superior to this. We then were able to score with the subcutaneous fat away from the mass and entered the mass. The mass in the midline was able to be excised from the rectus muscle on the right and left hand side. The mass measured approximately 8 x 8 x 8 centimeters. It was then sent to pathology for permanent sectioning. There was some small bowel, which was attached. This was stapled off with a fire of the JOHNATHAN stapler. We ran the bowel proximally and distally, there were found to be 2 lesions in the small bowel. The small lesion was excised easily without entering the mesenteric vasculature. There was another large lesion approximately 3 cm x 3 cm x 3 cm in size. This was excised. Upon removing this, there was found to be ischemia to the small bowel at the site and secondary to this, we elected to resect the small bowel at the site. We resected the small bowel proximal and distal to this area of ischemia with a fire of the JOHNATHAN stapler. We then oversewed the staple line and created end-to-side functional end- to-end anastomosis with first an outer layer of 3-0 silk and then an inner layer of 3-0 PDS. We then created small bowel anastomosis to our previous two in a similar fashion with an outer layer of 3-0 silk and inner layer of 3-0 PDS. We then closed the mesenteric defects of all these areas with 2-0 silk suture. We then ran the bowel from the ligament of Treitz all the way to the ileocecal valve. The were no further lesionslesions in the mesentery of the entirety of the small bowel as well as the colon. There was no found to be no disease in the pelvis. There was a lesion on the right lateral anterior abdominal wall, measuring approximately 2 cm x 2 cm x 2 cm in size. This was excised with electrocautery, sent to pathology for permanent sectioning. We then turned our attention to the splenectomy. Patient had a palpable lesion in the spleen. The splenic cavity taken down bluntly from the lateral attachments. The tumor was found to be adherent to the diaphragm on the right-hand side, thus a partial diaphragm resection was necessitated. This was accomplished with the LigaSure device. We then brought the spleen up into the field and stapled across the hilum with multiple fires of Endo-JOHNATHAN white load stapler. There was noted to be no bleeding from the staple line. We closed the hole in the diaphragm with figure- of-eight 0 Ethibond sutures. Prior to fully closing this, a 24-Slovenian chest tube was placed in the left chest cavity. It was a Pleur-Evac with good seal without any air leakage. We then turned our attention to our G-tube placement and a pursestring stitch was placed in the stomach. A gastrotomy was then created and the g tube was inserted through the abdominal wall into the stomach. The balloon was then inflated. The tube was then pexied to the abdominal wall with 2-0 silk sutures and the balloon was then inflated. We found no leakage from this site. We then changed closure due to the large defect into the anterior abdominal wall. We elected to create bilateral myofascial cutaneous flaps, which was carried down to the inferior part of the incision found to be a large mass in the abdominal wall. This was excised with electrocautery, measured 6 x 6 x 6 cm. It was sent to pathology for permanent sectioning. We then 1st turned our attention to the right-hand side. The posterior rectus sheath was incised. We created a muscle flap of the anterior rectus sheath and the rectus abdominis. We were able to bring the fascia to the midline. We then created a similar dissection on the left hand side. The posterior rectus sheath was incised and we were able to create this superiorly and inferiorly from the xiphoid down to the pubis to bring the posterior rectus sheath to the midline. We then turned our attention to closure. After adequate sponge and needle counts, we closed the posterior rectus sheath with running 0 non- looped PDS suture. We then placed a lightweight polypropylene mesh in the retrorectus space, was found to lay flat without any kinking or tension. We then closed the anterior rectus sheath with running 0 non-looped PDS suture and reapproximated the skin with 4-0 Monocryl stitch and covered with a wound VAC. At the end of the case, sponge and needle counts were correct. Patient was awakened and transferred to PACU in stable condition. I was present and scrubbed the entire procedure. SPECIMEN: Abdominal mass x2. Small bowel resection, spleen and subcutaneous nodule. DRAINS: 1. A 19-round drain. 2. Wound VAC. 3. Left chest tube. 4. G-tube. WOUND CLASS: 2, clean. Justin Dhillon MD NSA:[id number] /[id number] SURGICAL TISSUE EXAM Observed: 06/28/2018 Status: F Source: [employer] [facility] 12:00 AM HEALTH SYSTEM REPOSITORY Test performed at [place] [address] NAME: BECCA MAGANA REQUESTING: JUSTIN DHILLON MD COPY TO: MANUFACTURING TECHNICIAN; TUMOR REGISTRY FINAL DIAGNOSIS: A) SOFT TISSUE AND SMALL BOWEL, ABDOMINAL WALL MASS (#1), EN BLOC RESECTION - METASTATIC COLORECTAL ADENOCARCINOMA INVOLVING FIBROADIPOSE AND SKELETAL MUSCLE WITH TRANSMURAL EXTENSION INTO SMALL BOWEL SEGMENT. B) SOFT TISSUE, ABDOMINAL WALL MASS (#2), EXCISION - METASTATIC COLORECTAL ADENOCARCINOMA INVOLVING FIBROADIPOSE TISSUE. C) SOFT TISSUE, MESENTERIC NODULE (#1), EXCISION - METASTATIC COLORECTAL ADENOCARCINOMA INVOLVING FIBROADIPOSE TISSUE. D) SOFT TISSUE, MESENTERIC NODULE (#2), EXCISION - METASTATIC COLORECTAL ADENOCARCINOMA INVOLVING FIBROADIPOSE TISSUE. E) SPLEEN, SPLENECTOMY - TWO FOCI OF METASTATIC COLORECTAL ADENOCARCINOMA INVOLVING SPLEEN. F) SMALL BOWEL, SEGMENTAL RESECTION - SMALL BOWEL SEGMENT WITH FIBROUS SEROSAL ADHESIONS. NEGATIVE FOR MALIGNANCY. G) SOFT TISSUE, ABDOMINAL WALL MASS (#3), EXCISION - METASTATIC COLORECTAL ADENOCARCINOMA INVOLVING FIBROADIPOSE TISSUE AND SKELETAL MUSCLE. OPERATIVE PROCEDURE: Exploratory laparotomy CLINICAL INFORMATION: Carcinomatosis (HCC) [ C80.0] GROSS DESCRIPTION: A) Abdominal wall mass #1 Received in formalin labeled abdominal wall mass is an unoriented segment of abdominal wall with tightly adhered segments of bowel. The abdominal wall measures 9 x 6 x 3 cm. The peritoneal surface appears lopes-pink and smooth. The line of resection appears roughened and is inked black. Attached to the peritoneum are two segments of bowel with stapled margin measuring 4.0 and 5.0 cm respectively. The shortest segment of stapled margins are inked blue and the longest segment of margins are inked orange. The abdominal wall tissue is sectioned to reveal an 8.5 x 5.0 x 3.5 white to red mottled solid lesion. The lesion does show focal softening, necrosis and hemorrhage. The mass does grossly appear to involve the muscularis propria of the orange inked segment of bowel, extending within 1.8 cm of the nearest stapled margin. The blue-inked bowel segment shows a focal tumor ulceration extending within 1.0 cm of the nearest stapled margin. Finally, the mass extends within 1 mm of the periphery and deep soft tissue margin. Operations Vice President sections are submitted in formalin as follows: A1 - mass in relationship to nearest orange-inked bowel resection margin; A2 - opposite orange-inked bowel resection margin; A3 - perpendicular section of mass in relationship to nearest blue-inked stapled margin; A4 - opposite blue stapled margin in relationship to mass; A5 - ulcerative area of mass along blue-inked bowel segment; A6- A9 - sections of mass in relationship to periphery of abdominal wall, soft tissue; A10 - mass in relationship to deep soft tissue margin. B) Abdominal wall mass #2 Received in formalin labeled abdominal wall mass #2 is a segment of soft tissue measuring 2.0 x 1.7 x 1.0 cm. One surface is covered by lopes-pink, smooth peritoneum and the opposite is roughened with cauterized fibrofatty tissue. Cross sections reveal a white solid lesion measuring 1.2 x 1.0 x 0.6 cm. The lesion abuts the peritoneum without involvement. It extends within 2 mm of the cauterized soft tissue margin. No other gross abnormalities are seen. A sales and service representative section is submitted in formalin in cassette B1. C) Mesenteric nodule #1 Received in formalin labeled mesenteric nodule is an irregular-shaped segment of yellow fibrofatty tissue measuring 1.5 x 1.5 x 1.0 cm. Palpation reveals a white firm nodule measuring 1.0 x 0.7 x 0.7 cm. The specimen is bivalve and totally submitted in formalin in one cassette. D) Mesenteric nodule #2 Received in formalin labeled mesenteric nodule #2 is an irregular-shaped segment of yellow firm fibrofatty tissue measuring 2.5 x 2.0 x 1.5 cm. A smooth peritoneal lining is identified on one surface. The remaining cut surfaces appear roughened with cautery. The roughened surfaces are inked blue. The specimen is serially sectioned to reveal a 1.2 x 1.2 x 1.0 cm white solid lesion. The lesion extends within 1 mm of the periphery. No other gross abnormalities are seen. Operations Vice President sections are submitted in formalin in three cassettes. E) Spleen Received in formalin labeled spleen is an intact spleen measuring 9 x 8 x 5 cm and weighing 150 gm. The splenic capsule appears purple-stroud. Serial sectioning reveals two distinct white solid lesions measuring 1.5 x 0.5 x 0.5 cm and 2.0 x 2.0 x 1.5 cm. The smallest lesion is located along the hilum and the largest lesion is located along the periphery. The overlying capsule does show retraction in the area of the masses. No other gross abnormalities are seen. The uninvolved parenchyma appears dark red and soft. Operations Vice President sections are submitted in formalin as follow: E1 - smallest lesion; E2 - largest lesion: E3 - uninvolved parenchyma. F) Small bowel resection Received in formalin labeled small bowel resection is an unoriented small bowel resection with two staple margins. One margin is inked blue and the opposite margin is inked black. The serosal surface demonstrates fibrinous adhesions. The mucosal surface appears grossly unremarkable. No involvement by neoplasm is seen. The wall averages 0.2 cm in thickness. Operations Vice President sections are submitted in formalin as follows: F1 - perpendicular blue-inked margin; F2 - 4 cm; F3 - perpendicular black-inked margin. G) Abdominal wall mass #3 Received in formalin labeled abdominal wall mass #3 is an unoriented segment of yellow to white ovoid-shaped soft tissue measuring 6 x 6 x 4.0 cm. The external surfaces are inked black. The specimen is serially sectioned to reveal a 4.5 x 3.6 x 3.6 cm red to white necrotic mass. Focal areas of hemorrhage and softening is seen. The mass does extend within 1 mm of the periphery. Operations Vice President sections of the mass in relationship to the periphery are submitted in formalin in six cassettes. ARH:blair CÁRDENAS M.D.,PATHOLOGIST (Electronic signature on file) Signed out: 07/02/2018 16:14 PRINTED: 07/02/2018 Page 1 of 1 Performed By: #### SURG #### [facility] [address] [place] [address] [address] CHEST WITH Observed: 06/27/2018 Status: F Source: [facility] 1:37 PM HEALTH SYSTEM REPOSITORY Performed at [facility] APPROVED BY: Scar Westfall MD EXAMINATION: CHEST CT WITH CONTRAST CLINICAL HISTORY: Patient history of metastatic colon carcinoma and dehydration. Technique: Spiral CT acquisition of the chest from the thoracic inlet to the upper abdomen following IV contrast. Sagittal and coronal reconstructions. MQ: CTCWR_5 Contrast: [address] Dose-Length Product: 204 mGy*cm CT Dose Reduction Employed: Automated exposure control (AEC) was used. Comparison: 08/16/2016. RESULT: Limitations: None. Lines, tubes, and devices: None. Lung parenchyma and pleura: Right: New 4 mm nodule lateral aspect right middle lobe on 3:80. New since prior study. 4 mm groundglass opacity along the major fissure on 3:81. Stable. Atelectasis and/or scarring noted at the right lung base. 12 mm pleural-based nodular density right lung base posteriorly on 3:112. New since prior study. Previous 10 mm pleural-based nodule slightly lateral at the right lung base is decreased in size to 6 mm. Left: Linear areas of atelectasis noted at left lung base. Thoracic inlet, heart, and mediastinum: Heart size normal. No pericardial effusion. No significant mediastinal lymphadenopathy. Bones and soft tissues: No significant additional findings. IMPRESSION: 2 new nodules noted in the right lung. Metastatic disease is a concern. Nodular density noted posteriorly at the right lung base on prior exam is smaller. CT ABDOMEN AND PELVIS Observed: 06/27/2018 Status: F Source: [facility] 1:37 PM HEALTH SYSTEM REPOSITORY Performed at [facility] APPROVED BY: Scar Westfall MD EXAMINATION: CT ABDOMEN AND PELVIS WITH IV CONTRAST CLINICAL HISTORY: Follow-up colon carcinoma. TECHNIQUE: CT of the abdomen and pelvis was performed using standard technique, scanning from just above the dome of the diaphragm to the symphysis pubis. Sagittal and coronal reconstructions. MQ: CTAP_3 Contrast: IV: 150 ml of Omnipaque 300 Oral: [address] Radiation dose: Integrated Dose-length product (DLP) for this visit = 587 mGy*cm. CT Dose Reduction Employed: Automated exposure control (AEC) was used. COMPARISON: 08/16/2016 RESULT: Liver: Fatty infiltration in the liver. Biliary: The gallbladder is surgically absent. No pathologic bile duct dilatation. Spleen: There is hypodensity noted in the upper pole of the spleen measuring 2.4 cm. It is increased from 0.9 cm on prior exam and is most suspicious for metastasis. New 11 mm nodule centrally in the spleen. Pancreas: Unremarkable. Adrenals: No mass. Kidneys: Unremarkable. GI tract: Status post right hemicolectomy. Enterocolic anastomosis in the right abdomen. Transverse colon is distended with gas and stool. No small bowel dilatation. Lymph nodes: No abdominal or pelvic lymphadenopathy. Mesentery/Peritoneum: No ascites or mass. Retroperitoneum: No mass. Vasculature: The celiac axis and SMA are patent. The portal vein and branches, splenic vein, SMV, and hepatic veins are patent. Pelvis: No mass, ascites or fluid collection. The prostate is enlarged and impressing on the bladder base. Anterior abdominal wall: Large inhomogeneous mass in the midline anterior abdominal wall just above the umbilicus. It measures 8.0 x 4.5 cm. Similar mass lesion seen midline anterior wall of the lower pelvis measuring 6.5 x 3.5 cm. Bones/Soft Tissues: No significant additional findings. IMPRESSION: Solid mass lesions involving the anterior abdominal wall midline just above the umbilicus and in the anterior pelvic wall just above the pubic symphysis consistent with recurrent neoplasm. Splenic lesions. Are either new or have increased in size since prior exam and are most consistent with metastasis. Fatty changes in the liver. CONSULT PROG Observed: 06/27/2018 Status: COMPLETED Source: [facility] 10:53 AM CLINIC OTHER CAMPUS REPOSITORY HNO ID: [id number] Author: Anastasia Fairchild) DENAE Wiley Service: Wound/Ostomy Author Type: Registered Nurse Type: Consult Progress Note Filed: 06/27/2018 11:08 AM Note Text: WOUND CARE NURSE CONSULT NOTE SERVICE DATE: 06/27/2018 SERVICE TIME: 1030 REASON FOR VISIT: Ostomy TIME SPENT (minutes): 30 Documentation from Wound Expert can be found in scanned documents. Patient seen for ostomy care consult for stoma marking for ileostomy and colostomy per order from Dr. Campbell. Patient was assessed in the lying, sitting, and standing positions. Patient marked in the RLQ and LLQ, avoiding abdominal creases and scar tissue. assembler cards and announcements explained what a colostomy and ileostomy is, purpose and function of an ostomy, appearance of a healthy stoma, and showed patient samples of ostomy pouches. Patient verbalized understanding of information provided. No further questions at this time. Colostomy and ileostomy information left at the bedside, including inpatient ostomy care department card. Ostomy care to follow. SIGNATURE: Anastasia Wiley RN PATIENT NAME: Becca Magana DATE: June 27, 2018 TIME: 10:54 AM CONTACT#: [id number] CASE MGT INIT Observed: 06/27/2018 Status: COMPLETED Source: [facility] 8:44 AM CLINIC OTHER CAMPUS REPOSITORY HNO ID: [id number] Author: Alejandra HernándezRn) DENAE Squires Service: Care Management Author Type: Registered Nurse Type: Care Mgt Initial Assessment Filed: 06/27/2018 8:52 AM Note Text: CARE MANAGEMENT: ASSESSMENT AND DISCHARGE PLAN SERVICE DATE: 06/27/2018 SERVICE TIME: 8:44 AM PRIMARY CARE PHYSICIAN: Mariely Chowdary MD ADMISSION STATUS: Inpatient Needs Prior to Discharge: To Be Determined;Procedure MEDICAL: Patient/Operations Vice President Stated Goals: To have reduction in pain To have reduction in symptoms To return home to life as it was Health Insurance: MMO [employer] PLUS None Health Issues Impacting Discharge Plan: Uncontrolled Pain, G-tube care, stoma care. Last Admission Date: Previous admit date: 05/22/2016 Is this Within the Past 30 days? No Advance Directive: Current Advance Directive: None Structural Steel Engineer Attempted to Assist with AD Completion: Yes Action: Patient Unwilling Health Literacy: 1. How often do you need to have someone help you when you read instructions, pamphlets, or other written material from your doctor or pharmacy? Never - 1 2. How confident are you filling out medical forms by yourself? Extremely - 1 If Patient scores > 3 on either question, the following interventions were put into place: Patient did not score > 3 FUNCTIONAL AND COGNITIVE/BEHAVIORAL PRIOR TO ADMISSION: Baseline Mental Status: Alert AND Oriented, Person, Place , Time and Situation Functional Status: Independent Does Patient Currently Receive Any Community Services or Home Care? None Equipment Prior to Admission: None Has the Patient Been in a Residential Facility in the Past 30 days? 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 No Caregiver Needed Patient's transition needs and plan for meeting these needs: TBD Does the patient have an acute stroke diagnosis, or has the patient had a stroke during this admission? No Medication Adherence: I am convinced of the importance of my prescription medication: Agree completely - 0 I worry that my prescription medication will do more harm than good to me Disagree completely - 0 I feel financially burdened by my [id number] expenses for my prescription medication: Disagree completely - 0 Patient is categorized as low risk < 2 Are you interested in bedside delivery of your medications? No Food Concerns: In the Last Month, Have You had Trouble Getting Food? No trouble getting food During the Last Month, Have You Worried Whether Your Food Would Run Out Before You Had Enough Money to Buy More? No Is the Patient Psychosocially Complex? No ASSESSMENT AND PLAN: Medical Needs: 2 or more chronic diseases Psychosocial Needs: None FREEDOM OF CHOICE EXPLAINED: N/A POTENTIAL TRANSITION PLANS No Services Indicated Chart reviewed. Met with patient at bedside. Plan is OR on Sunday for Ex-lap possible bowel resection, Possible stoma and possible G-tube. No needs at this time. Will continue to follow for discharge needs. May need [facility] for GTube placement. SIGNATURE: Alejandra Squires RN PATIENT NAME: Becca Magana DATE: June 27, 2018 TIME: 8:44 AM PAGER/CONTACT #: [phone] PROGRESS Observed: 06/27/2018 Status: COMPLETED Source: [facility] 6:26 AM CLINIC OTHER CAMPUS REPOSITORY HNO ID: [id number] Author: Lai Ramirez Service: General Surgery Author Type: Resident Type: Progress Notes Filed: 06/27/2018 8:38 AM Note Text: Attestation signed by Justin Dhillon at 06/28/2018 11:14 AM Attending Note I personally saw and examined the patient. I reviewed the resident's note. I agree with the resident's assessment and plan with the following revisions and/or additions: await CT scan results Signature: Justin Dhillon MD Date: 06/28/2018 Time: 11:14 AM Elective General Surgery Progress Note SERVICE DATE: 06/27/2018 Elective General Surgery Service Pager: For questions or concerns Mon-Fri 6a-5p please page [phone]. After 5pm and on Weekends and Holidays, please page [phone] if in ICU or [phone] if on RNF. SUBJECTIVE: NAEON, +pain Tolerating diet DIET LIQUID Nausea No Emesis No Flatus Yes Bowel movement Yes Pain Controlled No Ambulating Yes OBJECTIVE: Vitals: Temp (24hrs), Av.9 ?C (98.4 ?F), Min:36.8 ?C (98.2 ?F), Max:37 ?C (98.6 ?F) BP 110/75 Pulse 75 Temp 36.8 ?C (98.2 ?F) (Temporal Artery) Resp 18 Wt 86.6 kg (190 lb 15.8 oz) SpO2 98% BMI 25.90 kg/m? O2 Therapy: Room Air IANDO: Date 06/26/18 07 - 06/27/18 0659 06/27/18 07 - 06/28/18 0659 Shift [id number] 7127-4406 3343-2262 24 Hour Total 3008-6565 1972-0384 6091-9105 24 Hour Total I N T A K E Shift Total O U T P U T Urine 175 175 Void (ml) 175 175 Shift Total 175 175 Weight (kg) 86.6 86.6 86.6 86.6 86.6 86.6 MEDICATIONS Current Facility-Administered Medications: potassium chloride ER 40 mEq tab(s) (K-DUR, KLOR-CON) 40 mEq ORAL BID enoxaparin 40 mg injection (LOVENOX) 40 mg SUBCUTANEOUS DAILY NaCl 0.9% 10 mL 10 mL INTRAVENOUS q 12 H NaCl 0.9% 20 mL 20 mL INTRAVENOUS PRN ondansetron 4 mg tab(s) (ZOFRAN) 4 mg ORAL q 6 H PRN Or ondansetron (PF) 4 mg injection (ZOFRAN) 4 mg INTRAVENOUS q 6 H PRN docusate sodium 100 mg cap(s) (COLACE) 100 mg ORAL BID PRN acetaminophen 975 mg tab(s) (TYLENOL) 975 mg ORAL q 6 H PRN minocycline 100 mg cap(s) (MINOCIN, DYNACIN) 100 mg ORAL BID iv contrast (radiology procedure) INTRAVENOUS DIRECTED PRN And enteric contrast (radiology procedure) ORAL DIRECTED PRN oxyCODONE IR 5-10 mg tab(s) (ROXICODONE) 5-10 mg ORAL q 4 H PRN morphine 1-2 mg injection 1-2 mg INTRAVENOUS q 4 H PRN traMADol 50 mg tab(s) (ULTRAM) 50 mg ORAL q 6 H PRN Labs: Recent Labs 06/27/18 0320 06/26/18 1735 NA 140 140 K 4.3 4.0 CHLOR 109* 109* CO2 25 27 BUN 6* 6* CREAT 0.87 0.82 GLUC 77 96 ANION 10 8 CA 8.2* 8.3* ALB 2.2* 2.3* AST 25 30 ALT 23 24 ALKPHOS 73 78 TBILI 0.2 0.3 WBC 3.73* 4.03* HB 9.1* 9.2* HCT 28.6* 27.7* PLT 182 179 Exam: GENERAL: No distress, Alert NEURO: AANDOx3, CN II-XII grossly intact HEENT: normocephalic, atraumatic LUNGS: Unlabored breathing CARDIAC: Regular rate and rhythm as above ABDOMEN: Soft, ND, TTP mid-abdomen, no PS EXTREMITIES: HEDRICK, No deformities, No edema SKIN: Skin color, texture, turgor normal, No rashes or lesions ASSESSMENT AND PLAN: Active Hospital Problems Diagnosis Date Noted - Carcinomatosis (HCC) 06/26/2018 Overview Note: Added automatically from request for surgery [id number] 62 year old male with Metastatic Sigmoid Colon cancer and Carcinomatosis s/p Sigmoidectomy, Wedge Liver Rxn, SBR, Omentectomy, Debulking, and HIPEC in 2014 and 2016 - CLD - CEA 11.7 - CT C/A/P pending - Lvx for DVT ppx - Bowel prep today - OR tomorrow for Ex Lap, possible Rxn/Stoma/GT SIGNATURE: Lai Ramirez MD PATIENT NAME: Becca Magana DATE: June 27, 2018 TIME: 6:26 AM Pager: Elective General Surgery Service Pager: For questions or concerns Mon-Fri 6a-5p please page [phone]. After 5pm and on Weekends and Holidays, please page [phone] if in ICU or [phone] if on RNF. HEMOGRAM Collected: 06/27/2018 Status: F Source: [facility] 3:20 AM HEALTH SYSTEM REPOSITORY TYPE CODE TESTS RESULT OUT OF REFERENCE UNITS RANGE LAB WBC(LOINC) 4.23-9.07 thou/cmm Low WBC 3.73 LAB RBC(LOINC) 4.63-6.08 mil/cmm Low RBC 3.04 LAB HGB(LOINC) 13.7-17.5 g/dL Low Hgb 9.1 LAB HCT(LOINC) 40.1-51.0 % Low Hct 28.6 LAB MCV(LOINC) 83.2-95.6 fl MCV 94.1 LAB MCH(LOINC) 25.7-32.2 pg MCH 29.9 LAB MCHC(LOINC) 32.3-36.5 % Low MCHC 31.8 LAB RDW(LOINC) 11.6-14.4 % RDW 14.3 LAB RDWSD(LOINC 36.1-45.8 fl ) High RDW SD 48.8 LAB PLT(LOINC) 141-365 thou/cmm Platelet 182 LAB MPV(LOINC) 8.7-12.0 fl MPV 9.6 Performed By: #### CBC1 #### [facility] [address] [place] [address] COMPREHENSIVE PANEL Collected: 06/27/2018 Status: F Source: [facility] 3:20 AM HEALTH SYSTEM REPOSITORY TYPE CODE TESTS RESULT OUT OF REFERENCE UNITS RANGE LAB NA(LOINC) 136-145 mEq/L Sodium Blood 140 LAB K(LOINC) 3.5-5.1 mEq/L Potassium Blood 4.3 LAB CL(LOINC) 98-107 mEq/L Chloride High Blood 109 LAB CO2(LOINC) 21-32 mEq/L CO2 Blood 25 LAB GLU(LOINC) 70-99 mg/dL Glucose Blood 77 LAB BUN(LOINC) 7-18 mg/dL Low BUN Blood 6 LAB CREA(LOINC 0.67-1.17 mg/dL ) Creatinine Blood 0.87 LAB CA(LOINC) 8.5-10.1 mg/dL Low Calcium Blood 8.2 LAB ALB(LOINC) 3.4-5.0 g/dL Low Albumin Blood 2.2 LAB TP(LOINC) 6.4-8.2 g/dL Low Total Protein 5.3 LAB AST(LOINC) 9-37 U/L AST-SGOT Blood 25 LAB ALT(LOINC) 12-78 U/L ALT-SGPT Blood 23 LAB ALKP(LOINC 46-116 U/L ) Alk Phosphatase 73 LAB BILIT(LOIN 0.2-1.0 mg/dL C) Total Bilirubin 0.2 LAB ANGAP(LOIN 8-16 C) Anion Gap 10 Performed By: #### P14 #### [place] [address] HISTORY PHYSICAL Observed: 06/26/2018 Status: COMPLETED Source: [facility] 5:42 PM CLINIC OTHER CAMPUS REPOSITORY HNO ID: [id number] Author: Esteban Campbell DO Service: General Surgery Author Type: Resident Type: HANDP Filed: 06/26/2018 6:09 PM Note Text: Attestation signed by Justin Dhillon at 06/27/2018 7:10 AM Attending Note I personally saw and examined the patient. I reviewed the resident's note. I agree with the resident's assessment and plan with the following revisions and/or additions: concern for PSBO from tumor. Will admit for rehydration and plan for surgery this sunday Signature: Justin Dhillon MD Date: 06/27/2018 Time: 7:09 AM HISTORY AND PHYSICAL EXAMINATION SERVICE DATE: 06/26/2018 SERVICE TIME: 5:43 PM PRIMARY CARE PHYSICIAN: Mariely Chowdary MD Subjective CHIEF COMPLAINT: Abdominal pain, recurrence of metastatic colon cancer HPI: 62 year old M with a PMHx colon cancer status post sigmoidectomy in January 2015. At the time, tumor extended into to the abdominal wall involving the muscularis propria of the small bowel. Patient underwent chemotherapy with FOLFOX finished in August 2015. CT scan in January 2016 showed small peritoneal omental metastases. Patient underwent additional chemotherapy with FOLFIRI, exploratory laparotomy and further resection of residual tumor with HIPEC intraperitoneal chemotherapy (mitomycin C) and bilateral ureteral stent placement on May 22, 2016. Remained free of disease until August 2017. Repeat CT scan showed liver metastasis along with intra-abdominal metastasis. He started on chemotherapy FOLFIRI with cetuximab since spring 2017. His last cycle of chemotherapy was 3 weeks ago. He presented to [facility] ED on 06/20 with progressively worsening severe nonradiating vance-umbilical pain, concern for bowel obstruction, was managed conservatively and subsequently discharged. He states that Dr Dhillon reviewed his new images and directly admitted him to [facility]. This afternoon pt admits to some persistent worsening abdominal pain, worse with movement. He is tolerating a diet, and states he is having softer than normal BM but no bloody stools or melena. Denies CP/SOB, cough, wheezing, urinary problems FUNCTIONAL STATUS: Independent PAST MEDICAL HISTORY Diagnosis Date - Colon cancer (HCC) PAST SURGICAL HISTORY Procedure Laterality Date - APPENDECTOMY at age 8 - LAP COLECTOMY, 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 with en bloc SB resection - PAST SURGICAL HISTORY OF 05/22/16 wedge liver bx, ileum wedge rsxn, omentectomy, debulking, HIPEC FAMILY HISTORY Problem Relation Age of Onset - Colon Cancer Paternal Grandfather 83 - Diabetes Sister Social History Substance Use Topics - Smoking status: Former Smoker Packs/day: 0.50 Years: 10.00 Types: Cigarettes Quit date: 01/21/1990 - Smokeless tobacco: Never Used - Alcohol use Yes Comment: beer once in awhile Prescriptions Prior to Admission: promethazine (PHENERGAN) 25 mg tablet Take 1 tablet by mouth every 6 hours as needed. FOR NAUSEA (Patient not taking: Reported on 06/26/2018 ) Disp: 20 tablet Rfl: 2 Not Taking dexamethasone (DECADRON) 4 mg tablet TAKE ONE TABLET BY MOUTH TWICE DAILY (Patient not taking: Reported on 06/26/2018) Disp: 10 tablet Rfl: 5 Not Taking minocycline (MINOCIN, DYNACIN) 100 mg capsule Take 100 mg by mouth twice daily. Disp: Rfl: 3 Not Taking XARELTO 20 mg tablet TAKE ONE TABLET BY MOUTH DAILY WITH DINNER. (Patient not taking: Reported on 06/26/2018) Disp: 30 tablet Rfl: 5 Not Taking potassium chloride ER (K-DUR, KLOR-CON) 20 mEq tablet Take 1 tablet by mouth three times daily. (Patient taking differently: Take 40 mEq by mouth twice daily. ) Disp: 90 tablet Rfl: 2 ondansetron (ZOFRAN) 8 mg tablet Take 1 tablet by mouth every 8 hours as needed for Nausea/Vomiting. (Patient not taking: Reported on 06/26/2018 ) Disp: 30 tablet Rfl: 2 Not Taking ALLERGIES No Known Allergies COMPLETE REVIEW OF SYSTEMS: 10 point review of systems was performed and negative unless otherwise noted in the HPI. Objective PHYSICAL EXAM: Physical Exam Performed: GENERAL: Alert, no distress, cooperative SKIN: Skin color, texture, turgor normal. No rashes or lesions. HEAD/SINUSES: No significant findings NECK: No jugulovenous distention, Supple BACK: ROM normal, No CVAT. LUNGS: Lungs clear to auscultation, Good diaphragmatic excursion CARDIAC: Normal S1 and S2; no rubs, murmurs, or gallops ABDOMEN: Well healed midline laparotomy scar, palpable periumbilical mass approximately 10cm wide, pelvis firm to palpation, no rebound or guarding. EXTREMITIES: Extremities normal, no deformities, edema, clubbing or skin discoloration. Good capillary refill., No ulcers. BP 122/83 Pulse 85 Temp (Src) 98.6 (Oral) Resp 18 SpO2 100% DATA: Diagnostic tests reviewed for today's visit: Most recent labs and imaging results. Assessment/Plan Active Problems: Metastatic recurrent colon cancer, peritoneal carcinomatosis. - reg diet - OK to access port site - CBC, CMP, CEA, Type AND screen, prealbumin - CT Chest abd pelvis with IV contrast if Cr WNL - bowel prep/CLD starting tomorrow- miralax dulcolax - stoma nurse consult for marking - LVX - Plan for OR Sunday- Ex lap poss bowel resection poss stoma, poss G tube - DW Dr Dhillon Medication and Non-Pharmacologic VTE Prophylaxis/Anticoagulants VTE Prophylaxis: VTE prophylaxis appropriate SIGNATURE: Esteban Campbell DO PATIENT NAME: Becca Magana DATE: June 26, 2018 TIME: 5:42 PM PAGER/CONTACT #: [phone] HEMOGRAM/DIFF Collected: 06/26/2018 Status: F Source: [facility] 5:35 PM HEALTH SYSTEM REPOSITORY TYPE CODE TESTS RESULT OUT OF REFERENCE UNITS RANGE LAB WBC(LOINC) 4.23-9.07 thou/cmm Low WBC 4.03 LAB RBC(LOINC) 4.63-6.08 mil/cmm Low RBC 2.99 LAB HGB(LOINC) 13.7-17.5 g/dL Low Hgb 9.2 LAB HCT(LOINC) 40.1-51.0 % Low Hct 27.7 LAB MCV(LOINC) 83.2-95.6 fl MCV 92.6 LAB MCH(LOINC) 25.7-32.2 pg MCH 30.8 LAB MCHC(LOINC 32.3-36.5 % ) MCHC 33.2 LAB RDW(LOINC) 11.6-14.4 % RDW 14.3 LAB RDWSD(LOIN 36.1-45.8 fl C) RDW SD High 48.3 LAB PLT(LOINC) 141-365 thou/cmm Platelet 179 LAB MPV(LOINC) 8.7-12.0 fl MPV 9.8 LAB SEG(LOINC) % Seg Neutrophil 53.4 LAB IGRE(LOINC % ) Immature Grans 0.50 LAB LYMPH(LOIN % C) Lymphocyte 27.8 LAB MNO(LOINC) % Monocyte 14.6 LAB EOSIN(LOIN % C) Eosinophil 3.0 LAB BASO(LOINC % ) Basophil 0.7 LAB SEGN(LOINC 1.78-5.38 thou/cmm ) Abs. Neut (ANC) 2.15 LAB IGAB(LOINC 0.00-0.05 thou/cmm ) Abs Immature Grans 0.02 LAB LYMN(LOINC 0.84-2.85 thou/cmm ) Abs. Lymph 1.12 LAB MONON(LOIN 0.30-0.82 thou/cmm C) Abs. [place] 0.59 LAB EOSN(LOINC 0.04-0.54 thou/cmm ) Abs. Eosin 0.12 LAB BASON(LOIN 0.01-0.08 thou/cmm C) Abs. Baso 0.03 Performed By: #### CBCD1 #### [facility] [address] [address] COMPREHENSIVE PANEL Collected: 06/26/2018 Status: F Source: [facility] 5:35 PM HEALTH SYSTEM REPOSITORY TYPE CODE TESTS RESULT OUT OF REFERENCE UNITS RANGE LAB NA(LOINC) 136-145 mEq/L Sodium Blood 140 LAB K(LOINC) 3.5-5.1 mEq/L Potassium Blood 4.0 LAB CL(LOINC) 98-107 mEq/L Chloride High Blood 109 LAB CO2(LOINC) 21-32 mEq/L CO2 Blood 27 LAB GLU(LOINC) 70-99 mg/dL Glucose Blood 96 LAB BUN(LOINC) 7-18 mg/dL Low BUN Blood 6 LAB CREA(LOINC 0.67-1.17 mg/dL ) Creatinine Blood 0.82 LAB CA(LOINC) 8.5-10.1 mg/dL Low Calcium Blood 8.3 LAB ALB(LOINC) 3.4-5.0 g/dL Low Albumin Blood 2.3 LAB TP(LOINC) 6.4-8.2 g/dL Low Total Protein 5.5 LAB AST(LOINC) 9-37 U/L AST-SGOT Blood 30 LAB ALT(LOINC) 12-78 U/L ALT-SGPT Blood 24 LAB ALKP(LOINC 46-116 U/L ) Alk Phosphatase 78 LAB BILIT(LOIN 0.2-1.0 mg/dL C) Total Bilirubin 0.3 LAB ANGAP(LOIN 8-16 C) Anion Gap 8 Performed By: #### P14 #### [place] [address] PREALBUMIN Collected: 06/26/2018 Status: F Source: [facility] 5:35 PM HEALTH SYSTEM REPOSITORY TYPE CODE TESTS RESULT OUT OF REFERENCE UNITS RANGE LAB PAB(LOINC) 20.0-40.0 mg/dL Low Prealbumin 10.5 Performed By: #### PAB #### [place] [address] CEA Collected: 06/26/2018 Status: F Source: [facility] 5:35 PM HEALTH SYSTEM REPOSITORY TYPE CODE TESTS RESULT OUT OF RANGE REFERENCE UNITS LAB CEA(LOINC) 0.0-3.0 ng/mL High CEA 11.7 Result Comment: The reference range shown is for adult non-smokers. The range for smokers is 0-5.0 Testing performed by Chemiluminescence LOCI. Performed By: #### CEA #### [place] [address] TYPE AND SCREEN Collected: 06/26/2018 Status: F Source: [facility] 5:35 HEALTH SYSTEM REPOSITORY TYPE CODE TESTS RESULT OUT OF REFERENCE UNITS RANGE LAB ABO(LOINC) A ABO Group LAB WORM RAISER(LOINC ) RH Type Negative LAB ABSCR(LOIN C) Antibody NEGATIVE Screen LAB BBCMT(LOIN C) Comment See Below Result Comment: Screen &/or Xmatch expires in 3 days at 12 midnight. Redraw patient at that time. Performed By: #### T&S #### [place] [address] CNOV Observed: 06/26/2018 Status: COMPLETED Source: [place] 1:00 PM CLINIC OTHER CAMPUS REPOSITORY Office Visit (AGGENS1) BECCA MAGANA ([id number]) 1955 M Date Time Provider Department 06/26/18 1:00 PM JUSTIN DHILLON AGGENS1 During your visit today, we recorded the following information about you: Pulse Blood pressure Weight Height 96/minute 110/78 86.2 kg 1.829 m Justin Dhillon MD 07/02/2018 8:04 AM Signed Hospital will call with room and bed number Justin Dhillon MD 07/02/2018 8:16 AM Signed Patient referred by: Geraldo Stone DO [address] [place] [id number] Patient presents with: Established Patient: Mr. Magana is here today for a small bowel mass. HPI: A 62-year-old male status post sigmoid colectomy for perforated colon cancer followed by HIPEC. He currently has had a recurrence in his abdominal wall. He has been receiving chemotherapy but this is had to be stopped several times due to toxicity. He currently has pain at the abdominal region. He has nausea but no vomiting. He has been hospitalized several times for small bowel obstruction. He is here to discuss possible surgical options. He is taking in very little by mouth. He has severe pain at the epigastric mass. He has no fevers or chills. He denies any jaundice. His last chemotherapy was 3 weeks ago. PAST MEDICAL HISTORY Diagnosis Date - Colon cancer (HCC) PAST SURGICAL HISTORY Procedure Laterality Date - APPENDECTOMY at age 8 - LAP COLECTOMY, 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 with en bloc SB resection - PAST SURGICAL HISTORY OF 05/22/16 wedge liver bx, ileum wedge rsxn, omentectomy, debulking, HIPEC FAMILY HISTORY Problem Relation Age of Onset - Colon Cancer Paternal Grandfather 83 - Diabetes Sister Social History Marital status: Spouse name: Years of education: Number of children: Social History Main Topics Smoking status: Former Smoker Packs/day: 0.50 Years: 10.00 Types: Cigarettes Quit date: 01/21/1990 Smokeless tobacco: Never Used Alcohol use: Yes Comment: beer once in awhile Drug use: No Other Topics Concern Caffeine Concern Yes Special Diet No Exercise No No current facility-administered medications for this visit. No current outpatient prescriptions on file. Facility-Administered Medications Ordered in Other Visits: acetaminophen 975 mg CUP (TYLENOL) 975 mg ORAL QID Or acetaminophen 975 mg tab(s) (TYLENOL) 975 mg ORAL QID bisacodyl 10 mg suppository (DULCOLAX) 10 mg RECTAL DAILY PRN enoxaparin 40 mg injection (LOVENOX) 40 mg SUBCUTANEOUS DAILY heparin 100 unit/mL 200-500 Units injection 200-500 Units INTRAVENOUS PRN HYDROmorphone HCl 1 mg injection (DILAUDID) 1 mg INTRAVENOUS q 3 H PRN ketorolac 15 mg injection (TORADOL) 15 mg INTRAVENOUS q 6 H minocycline 100 mg cap(s) (MINOCIN, DYNACIN) 100 mg ORAL BID NaCl 0.9% 10 mL 10 mL INTRAVENOUS q 12 H NaCl 0.9% 20 mL 20 mL INTRAVENOUS PRN ondansetron 4 mg tab(s) (ZOFRAN) 4 mg ORAL q 6 H PRN Or ondansetron (PF) 4 mg injection (ZOFRAN) 4 mg INTRAVENOUS q 6 H PRN oxyCODONE IR 10 mg tab(s) (ROXICODONE) 10 mg ORAL q 3 H PRN oxyCODONE IR 5 mg tab(s) (ROXICODONE) 5 mg ORAL q [address] 40 mg tab(s) (PROTONIX) 40 mg ORAL DAILY (6 AM) Or pantoprazole 40 mg granules for suspension (PROTONIX) 40 mg ORAL DAILY (6 AM) polyethylene glycol 3350 17 g packet (MIRALAX, GLYCOLAX) 17 g ORAL DAILY PRN potassium chloride ER 40 mEq tab(s) (K-DUR, KLOR-CON) 40 mEq ORAL BID prochlorperazine 5 mg injection (COMPAZINE) 5 mg INTRAVENOUS q 6 H PRN senna-docusate 8.6-50 mg 1 tablet (SENNA-S) 1 tablet ORAL BID ALLERGIES No Known Allergies REVIEW OF SYSTEMS: GENERAL: No weight loss, malaise or fevers GI: Negative for nausea , vomiting, diarrhea, constipation and signs of jaundice Positive for abdominal pain epigastrium PHYSICAL EXAM: BP 110/78 Pulse 96 Ht 6' 0 (1.83m) Wt 190 lb (86.2kg) SpO2 95% BMI 25.76 kg/(m2). GENERAL APPEARANCE: Well appearing, alert, in no acute distress, well-hydrated, well nourished.. ABDOMEN: Abdomen is soft. There is a palpable recurrence at the epigastric region. There is also a recurrence at the suprapubic region. There are no signs of infection or skin necrosis. NEURO: Alert, oriented x3, no asterixis, speech clear and articulate and HEDRICK DATA: Diagnostic tests reviewed for today's visit: Most recent imaging A total of 25 minutes was spent in direct patient contact.Greater than 50% of the direct patient contact time was spent in counseling or coordination of care. ASSESSMENT / PLAN 1. Peritoneal carcinomatosis (HCC) I reviewed his imaging. I discussed this case with his medical oncologist. He does appear to have resectable disease in his abdomen. This would necessitate abdominal wall resection as well as small bowel resection and possible splenectomy. Due to his severe pain and we will direct him into the hospital for IV fluid hydration and bowel prep. I'll make arrangements to have him admitted. Justin Dhillon MD Referring Provider: GERALDO STONE [[id number]] Allergies As of Date: 06/26/2018 (No Known Allergies) Date Reviewed: 06/26/2018 Reviewed by: Soledad ([facility]) Akin - Fully Assessed Reason for Visit: Established Patient [175] Cmt: Mr. Magana is here today for a small bowel mass. Primary Visit Diagnosis:Peritoneal carcinomatosis (HCC) [C78.6, C80.1] Prescriptions as of 06/26/2018 Sig: MINOCYCLINE 100 MG CAPSULE Take 100 mg by mouth twice da* ONDANSETRON HCL 8 MG TABLET Take 1 tablet by mouth every * Patient not taking: Reported on 06/26/2018 POTASSIUM CHLORIDE ER 20 MEQ * Take 1 tablet by mouth three * Patient taking differently: Take 40 mEq by mouth twice da* PROMETHAZINE 25 MG TABLET Take 1 tablet by mouth every * Patient not taking: Reported on 06/26/2018 XARELTO 20 MG TABLET TAKE ONE TABLET BY MOUTH ROBERTA* DEXAMETHASONE 4 MG TABLET TAKE ONE TABLET BY MOUTH TWIC* Patient not taking: Reported on 06/26/2018 Problem List As Of Date 06/26/2018 Noted Resolved Colon cancer (HCC) [C18.9] 08/21/2017 Peritoneal carcinomatosis (HCC) [C78.6, C80.1] INVALID FOR* Metastasis to liver (HCC) [C78.7] INVALID FOR* More... Drug rash [L27.0] INVALID FOR* Malignant neoplasm of sigmoid colon (HCC) [C18.*INVALID FOR* Chronic saddle pulmonary embolism without acute*INVALID FOR* Carcinomatosis (HCC) [C80.0] INVALID FOR* More... Other instructions from your clinician: Hospital will call with room and bed number Encounter Status:Closed by JUSTIN DHILLON MD on 07/02/18 HOSP Observed: 06/26/2018 Status: COMPLETED Source: [place] 12:00 AM CLINIC OTHER CAMPUS REPOSITORY Patient:Becca Magana MRN: <[id number]> Height:6' 1(1.854 m) Weight:190 lb 15.8 oz (86.632 kg) Outpatient Medications as of 06/28/18: promethazine (PHENERGAN) 25 mg tablet dexamethasone (DECADRON) 4 mg tablet minocycline (MINOCIN, DYNACIN) 100 mg capsule XARELTO 20 mg tablet potassium chloride ER (K-DUR, KLOR-CON) 20 mEq tablet ondansetron (ZOFRAN) 8 mg tablet Admission/Clinic Administered Medications as of 06/28/18: ertapenem 1 g in NaCl 0.9% 100 mL MB+ (INVanz) prochlorperazine 5 mg injection (COMPAZINE) ketamine 39.95 mg injection (KETALAR) lidocaine iv infusion 2 g in D5W 250 mL magnesium sulfate 2.4 g in NaCl 0.9% 100 mL bupivacaine liposome (EXPAREL) 266 mg (20 mL) + bupivacaine 0.25% 30 mL in 0.9% NaCl 150 mL bag for wound infiltration ketamine 500 mg in NaCl 0.9% 100 mL (KETALAR) acetaminophen 975 mg tab(s) (TYLENOL) senna-docusate 8.6-50 mg 1 tablet (SENNA-S) morphine 4 mg injection oxyCODONE IR 10-15 mg tab(s) (ROXICODONE) dextrose 5% in LR infusion (D5-LR) potassium chloride ER 40 mEq tab(s) (K-DUR, KLOR-CON) enoxaparin 40 mg injection (LOVENOX) NaCl 0.9% 10 mL NaCl 0.9% 20 mL ondansetron 4 mg tab(s) (ZOFRAN) ondansetron (PF) 4 mg injection (ZOFRAN) minocycline 100 mg cap(s) (MINOCIN, DYNACIN) iv contrast (radiology procedure) Problem List: Peritoneal carcinomatosis (HCC) [C78.6, C80.1] Metastasis to liver (HCC) [C78.7] Drug rash [L27.0] Malignant neoplasm of sigmoid colon (HCC) [C18.7] Chronic saddle pulmonary embolism without acute cor pulmonale (HCC) [I26.92] Carcinomatosis (HCC) [C80.0] Allergies: No Known Allergies Date Verified:06/28/18 Lab Values Lab Value Units Date High Low POTA* 4.7 mEq/L 06/28/2018 5.1 3.5 BOLIVAR* 29.5 % 06/28/2018 51.0 40.1 Progress Notes (): Esteban Campbell DO, DO 06/26/2018 6:09 PM Attested Attestation signed by Justin Dhillon at 06/27/2018 7:10 AM Attending Note I personally saw and examined the patient. I reviewed the resident's note. I agree with the resident's assessment and plan with the following revisions and/or additions: concern for PSBO from tumor. Will admit for rehydration and plan for surgery this sunday Signature: Justin Dhillon MD Date: 06/27/2018 Time: 7:09 AM HISTORY AND PHYSICAL EXAMINATION SERVICE DATE: 06/26/2018 SERVICE TIME: 5:43 PM PRIMARY CARE PHYSICIAN: Mariely Chowdary MD Subjective CHIEF COMPLAINT: Abdominal pain, recurrence of metastatic colon cancer HPI: 62 year old M with a PMHx colon cancer status post sigmoidectomy in January 2015. At the time, tumor extended into to the abdominal wall involving the muscularis propria of the small bowel. Patient underwent chemotherapy with FOLFOX finished in August 2015. CT scan in January 2016 showed small peritoneal omental metastases. Patient underwent additional chemotherapy with FOLFIRI, exploratory laparotomy and further resection of residual tumor with HIPEC intraperitoneal chemotherapy (mitomycin C) and bilateral ureteral stent placement on May 22, 2016. Remained free of disease until August 2017. Repeat CT scan showed liver metastasis along with intra-abdominal metastasis. He started on chemotherapy FOLFIRI with cetuximab since spring 2017. His last cycle of chemotherapy was 3 weeks ago. He presented to [facility] ED on 06/20 with progressively worsening severe nonradiating vance-umbilical pain, concern for bowel obstruction, was managed conservatively and subsequently discharged. He states that Dr Dhillon reviewed his new images and directly admitted him to [facility]. This afternoon pt admits to some persistent worsening abdominal pain, worse with movement. He is tolerating a diet, and states he is having softer than normal BM but no bloody stools or melena. Denies CP/SOB, cough, wheezing, urinary problems FUNCTIONAL STATUS: Independent PAST MEDICAL HISTORY Diagnosis Date - Colon cancer (HCC) PAST SURGICAL HISTORY Procedure Laterality Date - APPENDECTOMY at age 8 - LAP COLECTOMY, 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 with en bloc SB resection - PAST SURGICAL HISTORY OF 05/22/16 wedge liver bx, ileum wedge rsxn, omentectomy, debulking, HIPEC FAMILY HISTORY Problem Relation Age of Onset - Colon Cancer Paternal Grandfather 83 - Diabetes Sister Social History Substance Use Topics - Smoking status: Former Smoker Packs/day: 0.50 Years: 10.00 Types: Cigarettes Quit date: 01/21/1990 - Smokeless tobacco: Never Used - Alcohol use Yes Comment: beer once in awhile Prescriptions Prior to Admission: promethazine (PHENERGAN) 25 mg tablet Take 1 tablet by mouth every 6 hours as needed. FOR NAUSEA (Patient not taking: Reported on 06/26/2018 ) Disp: 20 tablet Rfl: 2 Not Taking dexamethasone (DECADRON) 4 mg tablet TAKE ONE TABLET BY MOUTH TWICE DAILY (Patient not taking: Reported on 06/26/2018) Disp: 10 tablet Rfl: 5 Not Taking minocycline (MINOCIN, DYNACIN) 100 mg capsule Take 100 mg by mouth twice daily. Disp: Rfl: 3 Not Taking XARELTO 20 mg tablet TAKE ONE TABLET BY MOUTH DAILY WITH DINNER. (Patient not taking: Reported on 06/26/2018) Disp: 30 tablet Rfl: 5 Not Taking potassium chloride ER (K-DUR, KLOR-CON) 20 mEq tablet Take 1 tablet by mouth three times daily. (Patient taking differently: Take 40 mEq by mouth twice daily. ) Disp: 90 tablet Rfl: 2 ondansetron (ZOFRAN) 8 mg tablet Take 1 tablet by mouth every 8 hours as needed for Nausea/Vomiting. (Patient not taking: Reported on 06/26/2018 ) Disp: 30 tablet Rfl: 2 Not Taking ALLERGIES No Known Allergies COMPLETE REVIEW OF SYSTEMS: 10 point review of systems was performed and negative unless otherwise noted in the HPI. Objective PHYSICAL EXAM: Physical Exam Performed: GENERAL: Alert, no distress, cooperative SKIN: Skin color, texture, turgor normal. No rashes or lesions. HEAD/SINUSES: No significant findings NECK: No jugulovenous distention, Supple BACK: ROM normal, No CVAT. LUNGS: Lungs clear to auscultation, Good diaphragmatic excursion CARDIAC: Normal S1 and S2; no rubs, murmurs, or gallops ABDOMEN: Well healed midline laparotomy scar, palpable periumbilical mass approximately 10cm wide, pelvis firm to palpation, no rebound or guarding. EXTREMITIES: Extremities normal, no deformities, edema, clubbing or skin discoloration. Good capillary refill., No ulcers. BP 122/83 Pulse 85 Temp (Src) 98.6 (Oral) Resp 18 SpO2 100% DATA: Diagnostic tests reviewed for today's visit: Most recent labs and imaging results. Assessment/Plan Active Problems: Metastatic recurrent colon cancer, peritoneal carcinomatosis. - reg diet - OK to access port site - CBC, CMP, CEA, Type AND screen, prealbumin - CT Chest abd pelvis with IV contrast if Cr WNL - bowel prep/CLD starting tomorrow- miralax dulcolax - stoma nurse consult for marking - LVX - Plan for OR Sunday- Ex lap poss bowel resection poss stoma, poss G tube - DW Dr Dhillon Medication and Non-Pharmacologic VTE Prophylaxis/Anticoagulants VTE Prophylaxis: VTE prophylaxis appropriate SIGNATURE: Esteban Campbell DO PATIENT NAME: Becca Magana DATE: June 26, 2018 TIME: 5:42 PM PAGER/CONTACT #: [phone] Previous Version Lai Ramirez MD 06/27/2018 8:38 AM Attested Attestation signed by Justin Dhillon at 06/28/2018 11:14 AM Attending Note I personally saw and examined the patient. I reviewed the resident's note. I agree with the resident's assessment and plan with the following revisions and/or additions: await CT scan results Signature: Justin Dhillon MD Date: 06/28/2018 Time: 11:14 AM Elective General Surgery Progress Note SERVICE DATE: 06/27/2018 Elective General Surgery Service Pager: For questions or concerns Mon-Fri 6a-5p please page [phone]. After 5pm and on Weekends and Holidays, please page [phone] if in ICU or [phone] if on RNF. SUBJECTIVE: NAEON, +pain Tolerating diet DIET LIQUID Nausea No Emesis No Flatus Yes Bowel movement Yes Pain Controlled No Ambulating Yes OBJECTIVE: Vitals: Temp (24hrs), Av.9 ?C (98.4 ?F), Min:36.8 ?C (98.2 ?F), Max:37 ?C (98.6 ?F) BP 110/75 Pulse 75 Temp 36.8 ?C (98.2 ?F) (Temporal Artery) Resp 18 Wt 86.6 kg (190 lb 15.8 oz) SpO2 98% BMI 25.90 kg/m? O2 Therapy: Room Air IANDO: Date 06/26/18699 - 06/27/1865806/27/18699 - 06/28/18 0659 Shift 5756-4624 5991-0493 4298-9467 24 Hour Total 9524-9244 5035-9617 0069-2130 24 Hour Total I N T A K E Shift Total O U T P U T Urine 175 175 Void (ml) 175 175 Shift Total 175 175 Weight (kg) 86.6 86.6 86.6 86.6 86.6 86.6 MEDICATIONS Current Facility-Administered Medications: potassium chloride ER 40 mEq tab(s) (K-DUR, KLOR-CON) 40 mEq ORAL BID enoxaparin 40 mg injection (LOVENOX) 40 mg SUBCUTANEOUS DAILY NaCl 0.9% 10 mL 10 mL INTRAVENOUS q 12 H NaCl 0.9% 20 mL 20 mL INTRAVENOUS PRN ondansetron 4 mg tab(s) (ZOFRAN) 4 mg ORAL q 6 H PRN Or ondansetron (PF) 4 mg injection (ZOFRAN) 4 mg INTRAVENOUS q 6 H PRN docusate sodium 100 mg cap(s) (COLACE) 100 mg ORAL BID PRN acetaminophen 975 mg tab(s) (TYLENOL) 975 mg ORAL q 6 H PRN minocycline 100 mg cap(s) (MINOCIN, DYNACIN) 100 mg ORAL BID iv contrast (radiology procedure) INTRAVENOUS DIRECTED PRN And enteric contrast (radiology procedure) ORAL DIRECTED PRN oxyCODONE IR 5-10 mg tab(s) (ROXICODONE) 5-10 mg ORAL q 4 H PRN morphine 1-2 mg injection 1-2 mg INTRAVENOUS q 4 H PRN traMADol 50 mg tab(s) (ULTRAM) 50 mg ORAL q 6 H PRN Labs: Recent Labs 06/27/18 0320 06/26/18 1735 NA 140 140 K 4.3 4.0 CHLOR 109* 109* CO2 25 27 BUN 6* 6* CREAT 0.87 0.82 GLUC 77 96 ANION 10 8 CA 8.2* 8.3* ALB 2.2* 2.3* AST 25 30 ALT 23 24 ALKPHOS 73 78 TBILI 0.2 0.3 WBC 3.73* 4.03* HB 9.1* 9.2* HCT 28.6* 27.7* PLT 182 179 Exam: GENERAL: No distress, Alert NEURO: AANDOx3, CN II-XII grossly intact HEENT: normocephalic, atraumatic LUNGS: Unlabored breathing CARDIAC: Regular rate and rhythm as above ABDOMEN: Soft, ND, TTP mid-abdomen, no PS EXTREMITIES: HEDRICK, No deformities, No edema SKIN: Skin color, texture, turgor normal, No rashes or lesions ASSESSMENT AND PLAN: Active Hospital Problems Diagnosis Date Noted - Carcinomatosis (HCC) 06/26/2018 Overview Note: Added automatically from request for surgery [id number] 62 year old male with Metastatic Sigmoid Colon cancer and Carcinomatosis s/p Sigmoidectomy, Wedge Liver Rxn, SBR, Omentectomy, Debulking, and HIPEC in 2014 and 2016 - CLD - CEA 11.7 - CT C/A/P pending - Lvx for DVT ppx - Bowel prep today - OR tomorrow for Ex Lap, possible Rxn/Stoma/GT SIGNATURE: Lai Ramirez MD PATIENT NAME: Becca Magana DATE: June 27, 2018 TIME: 6:26 AM Pager: Elect[facility] General Surgery Service Pager: For questions or concerns Mon-Fri 6a-5p please page [phone]. After 5pm and on Weekends and Holidays, please page [phone] if in ICU or [phone] if on RNF. Alejandra Squires RN, RN 06/27/2018 8:52 AM Signed CARE MANAGEMENT: ASSESSMENT AND DISCHARGE PLAN SERVICE DATE: 06/27/2018 SERVICE TIME: 8:44 AM PRIMARY CARE PHYSICIAN: Mariely Chowdary MD ADMISSION STATUS: Inpatient Needs Prior to Discharge: To Be Determined;Procedure MEDICAL: Patient/Operations Vice President Stated Goals: To have reduction in pain To have reduction in symptoms To return home to life as it was Health Insurance: MMO SU[employer] PLUS None Health Issues Impacting Discharge Plan: Uncontrolled Pain, G-tube care, stoma care. Last Admission Date: Previous admit date: 05/22/2016 Is this Within the Past 30 days? No Advance Directive: Current Advance Directive: None Structural Steel Engineer Attempted to Assist with AD Completion: Yes Action: Patient Unwilling Health Literacy: 1. How often do you need to have someone help you when you read instructions, pamphlets, or other written material from your doctor or pharmacy? Never - 1 2. How confident are you filling out medical forms by yourself? Extremely - 1 If Patient scores > 3 on either question, the following interventions were put into place: Patient did not score > 3 FUNCTIONAL AND COGNITIVE/BEHAVIORAL PRIOR TO ADMISSION: Baseline Mental Status: Alert AND Oriented, Person, Place , Time and Situation Functional Status: Independent Does Patient Currently Receive Any Community Services or Home Care? None Equipment Prior to Admission: None Has the Patient Been in a Residential Facility in the Past 30 days? No SOCIAL: Living Arrangement: Home Lives With: Spouse Financial Resources: Disabled and Employed: PT Primary Contact: Extended Emergency Contact Information Primary Emergency Contact: Arlene Magana Address: [address] [place] [address] [facility] Mobile Relation: Spouse Supportive: Yes Other Important Patient Contacts: None Caregiver Assessment: Caregiver is ready, willing and able to meet the patient's needs as recommended by the inter-professional team? No Caregiver Needed Patient's transition needs and plan for meeting these needs: TBD Does the patient have an acute stroke diagnosis, or has the patient had a stroke during this admission? No Medication Adherence: I am convinced of the importance of my prescription medication: Agree completely - 0 I worry that my prescription medication will do more harm than good to me Disagree completely - 0 I feel financially burdened by my zos-ri-oghewo expenses for my prescription medication: Disagree completely - 0 Patient is categorized as low risk < 2 Are you interested in bedside delivery of your medications? No Food Concerns: In the Last Month, Have You had Trouble Getting Food? No trouble getting food During the Last Month, Have You Worried Whether Your Food Would Run Out Before You Had Enough Money to Buy More? No Is the Patient Psychosocially Complex? No ASSESSMENT AND PLAN: Medical Needs: 2 or more chronic diseases Psychosocial Needs: None FREEDOM OF CHOICE EXPLAINED: N/A POTENTIAL TRANSITION PLANS No Services Indicated Chart reviewed. Met with patient at bedside. Plan is OR on Sunday for Ex-lap possible bowel resection, Possible stoma and possible G-tube. No needs at this time. Will continue to follow for discharge needs. May need [facility] for GTube placement. SIGNATURE: Alejandra Squires RN PATIENT NAME: Becca Magana DATE: June 27, 2018 TIME: 8:44 AM PAGER/CONTACT #: [phone] Aanstasia Wiley RN, RN 06/27/2018 11:08 AM Signed WOUND CARE NURSE CONSULT NOTE SERVICE DATE: 06/27/2018 SERVICE TIME: 1030 REASON FOR VISIT: Ostomy TIME SPENT (minutes): 30 Documentation from Wound Expert can be found in scanned documents. Patient seen for ostomy care consult for stoma marking for ileostomy and colostomy per order from Dr. Campbell. Patient was assessed in the lying, sitting, and standing positions. Patient marked in the RLQ and LLQ, avoiding abdominal creases and scar tissue. assembler cards and announcements explained what a colostomy and ileostomy is, purpose and function of an ostomy, appearance of a healthy stoma, and showed patient samples of ostomy pouches. Patient verbalized understanding of information provided. No further questions at this time. Colostomy and ileostomy information left at the bedside, including inpatient ostomy care department card. Ostomy care to follow. SIGNATURE: Anastasia Wiley RN PATIENT NAME: Becca Magana DATE: June 27, 2018 TIME: 10:54 AM CONTACT#: [id number] Lai Ramirez MD 06/28/2018 7:24 AM Attested Attestation signed by Justin Dhillon at 06/28/2018 11:15 AM Attending Note I personally saw and examined the patient. I reviewed the resident's note. I agree with the resident's assessment and plan with the following revisions and/or additions: plan for OR today Signature: Justin Dhillon MD Date: 06/28/2018 Time: 11:15 AM Elective General Surgery Progress Note SERVICE DATE: 06/28/2018 Elective General Surgery Service Pager: For questions or concerns Mon-Fri 6a-5p please page [phone]. After 5pm and on Weekends and Holidays, please page [phone] if in ICU or [phone] if on RNF. SUBJECTIVE: NAEON, persistent abdominal pain, emesis yesterday with PO contrast, nausea improved Tolerating diet DIET NPO Nausea No Emesis No Flatus Yes Bowel movement Yes Pain Controlled Yes Ambulating Yes OBJECTIVE: Vitals: Temp (24hrs), Av.5 ?C (97.7 ?F), Min:36.1 ?C (97 ?F), Max:36.9 ?C (98.4 ?F) BP 116/70 Pulse 85 Temp 36.5 ?C (97.7 ?F) (Oral) Resp 18 Ht 185.4 cm (6' 1) Wt 86.6 kg (190 lb 15.8 oz) SpO2 100% BMI 25.20 kg/m? O2 Therapy: Room Air IANDO: Date 06/27/18699 - 06/28/18 0659 06/28/18 07 - 06/29/18 0659 Shift 9964-4137 6941-5602 5890-0054 24 Hour Total 5686-5080 1482-7304 7813-1753 24 Hour Total I N T A K E PO 240 240 PO 240 240 Shift Total 240 240 O U T P U T Urine 500 200 700 Void (ml) 500 200 700 Shift Total 500 200 700 Weight (kg) 86.6 86.6 86.6 86.6 86.6 86.6 86.6 86.6 MEDICATIONS Current Facility-Administered Medications: acetaminophen 975 mg tab(s) (TYLENOL) 975 mg ORAL QID senna-docusate 8.6-50 mg 1 tablet (SENNA-S) 1 tablet ORAL BID morphine 4 mg injection 4 mg INTRAVENOUS q 4 H PRN oxyCODONE IR 10-15 mg tab(s) (ROXICODONE) 10-15 mg ORAL q 4 H PRN dextrose 5% in LR infusion (D5-LR) 125 mL/hr INTRAVENOUS CONTINUOUS potassium chloride ER 40 mEq tab(s) (K-DUR, KLOR-CON) 40 mEq ORAL BID enoxaparin 40 mg injection (LOVENOX) 40 mg SUBCUTANEOUS DAILY NaCl 0.9% 10 mL 10 mL INTRAVENOUS q 12 H NaCl 0.9% 20 mL 20 mL INTRAVENOUS PRN ondansetron 4 mg tab(s) (ZOFRAN) 4 mg ORAL q 6 H PRN Or ondansetron (PF) 4 mg injection (ZOFRAN) 4 mg INTRAVENOUS q 6 H PRN minocycline 100 mg cap(s) (MINOCIN, DYNACIN) 100 mg ORAL BID iv contrast (radiology procedure) INTRAVENOUS DIRECTED PRN Labs: Recent Labs 06/28/18 0450 06/27/18 0320 06/26/18 1735 NA -- 140 140 K -- 4.3 4.0 CHLOR -- 109* 109* CO2 -- 25 27 BUN -- 6* 6* CREAT -- 0.87 0.82 GLUC -- 77 96 ANION -- 10 8 CA -- 8.2* 8.3* ALB -- 2.2* 2.3* AST -- 25 30 ALT -- 23 24 ALKPHOS -- 73 78 TBILI -- 0.2 0.3 WBC 4.47 3.73* 4.03* HB 9.3* 9.1* 9.2* HCT 29.5* 28.6* 27.7* PLT 216 182 179 Exam: GENERAL: No distress, Alert NEURO: AANDOx3, CN II-XII grossly intact HEENT: normocephalic, atraumatic LUNGS: Unlabored breathing CARDIAC: Regular rate and rhythm as above ABDOMEN: Soft, ND, TTP mid-abdomen, no PS EXTREMITIES: HEDRICK, No deformities, No edema SKIN: Skin color, texture, turgor normal, No rashes or lesions ASSESSMENT AND PLAN: Active Hospital Problems Diagnosis Date Noted - Carcinomatosis (HCC) 06/26/2018 Overview Note: Added automatically from request for surgery [id number] 62 year old male with Metastatic Sigmoid Colon cancer and Carcinomatosis s/p Sigmoidectomy, Wedge Liver Rxn, SBR, Omentectomy, Debulking, and HIPEC in 2014 and 2016 ? - NPO/IVF - CEA 11.7 - CT C/A/P --> two new R lung lesions concerning for mets, 8cm mass superior to umbilicus, 6.5cm pelvic mass, new splenic leasions - Lvx for DVT ppx - OR today for Ex Lap, possible Rxn/Stoma/GT SIGNATURE: Lai Ramirez MD PATIENT NAME: Becca Magana DATE: June 28, 2018 TIME: 6:31 AM Pager: Elective General Surgery Service Pager: For questions or concerns Mon-Fri 6a-5p please page [phone]. After 5pm and on Weekends and Holidays, please page [phone] if in ICU or [phone] if on RNF. Setph Pisano RD, LD 06/28/2018 9:44 AM Incomplete { :3206297} INITIAL ASSESSMENT SERVICE DATE: 06/28/2018 SERVICE TIME: RECOMMENDED MALNUTRITION DIAGNOSIS: { :048983} {Etiologies:919959} NUTRITION CARE PLAN: {PES Statement:6982300::Problem, Etiology and Signs/Symptoms:} Intervention: {Interventions:1870814} {Collaboration statement:300762} {Coordination of Care:7103774::Coordination of Care:} {Monitor and Evaluation :0462440::Monitor and Evaluation:} Discharge Nutrition Recommendations: { :321983} Reason for Assessment: previous malnutrition Per HPI: 62 year old M with a PMHx colon cancer status post sigmoidectomy in January 2015. At the time, tumor extended into to the abdominal wall involving the muscularis propria of the small bowel. Patient underwent chemotherapy with FOLFOX finished in August 2015. CT scan in January 2016 showed small peritoneal omental metastases. Patient underwent additional chemotherapy with FOLFIRI, exploratory laparotomy and further resection of residual tumor with HIPEC intraperitoneal chemotherapy (mitomycin C) and bilateral ureteral stent placement on May 22, 2016. Remained free of disease until August 2017. Repeat CT scan showed liver metastasis along with intra-abdominal metastasis. He started on chemotherapy FOLFIRI with cetuximab since spring 2017. His last cycle of chemotherapy was 3 weeks ago. He presented to [facility] ED on 06/20 with progressively worsening severe nonradiating vance-umbilical pain, concern for bowel obstruction, was managed conservatively and subsequently discharged. ? He states that Dr Dhillon reviewed his new images and directly admitted him to [facility]. This afternoon pt admits to some persistent worsening abdominal pain, worse with movement. He is tolerating a diet, and states he is having softer than normal BM but no bloody stools or melena. Denies CP/SOB, cough, wheezing, urinary problems. CT C/A/P --> two new R lung lesions concerning for mets, 8cm mass superior to umbilicus, 6.5cm pelvic mass, new splenic leasion. OR today for Ex Lap, possible Rxn/Stoma/GT. 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) Carcinomatosis (Hcc) PAST MEDICAL HISTORY Diagnosis Date - Colon cancer (HCC) PAST SURGICAL HISTORY Procedure Laterality Date - APPENDECTOMY at age 8 - LAP COLECTOMY, 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 with en bloc SB resection - PAST SURGICAL HISTORY OF 05/22/16 wedge liver bx, ileum wedge rsxn, omentectomy, debulking, HIPEC Social History Marital status: Spouse name: Years of education: Number of children: Social History Main Topics Smoking status: Former Smoker Packs/day: 0.50 Years: 10.00 Types: Cigarettes Quit date: 01/21/1990 Smokeless tobacco: Never Used Alcohol use: Yes Comment: beer once in awhile Drug use: No Other Topics Concern Caffeine Concern Yes Special Diet No Exercise No Current Diet Order DIET NPO Order Specific Question: NPO Restrictions Answer: EXCEPT MEDS Lines and Drains: Implanted Vascular Access Device Single Port 06/26/18 1715 Left (Active) {Nutritional Intake Prior to Admission :5034843::Nutritional Intake Prior to Admission:} GI symptoms: { :42404} {Nutrition Abdominal Exam:56162::Nutrition Abdominal Exam:} ANTHROPOMETRICS Height: 185.4 cm (6' 1) Admission Weight: 86.6 kg (190 lb 15.8 oz) Current Weight: 86.6 kg (190 lb 15.8 oz) Body mass index is 25.2 kg/m?. overweight Weight has {IP TPN WEIGHT STATUS:920629} Last Wt 06/27/18 : 86.6 kg (190 lb 15.8 oz) 06/26/18 : 86.2 kg (190 lb) 06/24/18 : 87.1 kg (192 lb) 06/17/18 : 85.7 kg (189 lb) 06/03/18 : 87.5 kg (193 lb) 05/20/18 : 87.1 kg (192 lb) 04/23/18 : 89.4 kg (197 lb) 04/08/18 : 87.1 kg (192 lb) 04/08/18 : 87.1 kg (192 lb) 04/05/18 : 85.3 kg (188 lb) 03/26/18 : 90.3 kg (199 lb) 03/22/18 : 90.3 kg (199 lb) 03/11/18 : 91.6 kg (202 lb) 02/25/18 : 91.2 kg (201 lb) 02/22/18 : 91.4 kg (201 lb 8 oz) 01/29/18 : 94.8 kg (209 lb) 01/17/18 : 91.6 kg (202 lb) 12/12/17 : 95.7 kg (211 lb) 11/27/17 : 97.1 kg (214 lb) 11/14/17 : 95.9 kg (211 lb 8 oz) {Weight Types:0824664} Resting Metabolic Rate: 1714 Estimated kilocalorie needs: kilocalories determined by { :82947} Estimated protein needs: grams determined by { :51389} { :318325} weight Estimated fluid needs: milliliters based on { :8567719} NUTRITION FOCUSED PHYSICAL EXAM: { :639630} Temperature Max in 24 hours: Temp (24hrs), Av.4 ?C (97.6 ?F), Min:36.1 ?C (97 ?F), Max:36.7 ?C (98.1 ?F) BP 105/70 Pulse 81 Temp 36.7 ?C (98.1 ?F) (Temporal Artery) Resp 18 Ht 185.4 cm (6' 1) Wt 86.6 kg (190 lb 15.8 oz) SpO2 98% BMI 25.20 kg/m? Recent Labs 06/28/18 0450 06/27/18 0320 06/26/18 1735 GLUC 99 77 96 BUN 8 6* 6* CREAT 0.97 0.87 0.82 NA 136 140 140 K 4.7 4.3 4.0 CHLOR 102 109* 109* CO2 29 25 27 ALB -- 2.2* 2.3* PREALB -- -- 10.5* HB 9.3* 9.1* 9.2* HCT 29.5* 28.6* 27.7* WBC 4.47 3.73* 4.03* Potential Signs of Inflammation: { :10920} {Links:42720788} MNT Billing Type: {IP NUTR MNT BILLING TYPE:88109} SIGNATURE: Steph Pisano RD, LD PATIENT NAME: Becca Magana DATE: June 28, 2018 TIME: 9:13 AM PAGER: Nusrat Ivey RN, RN 06/28/2018 11:47 AM Signed Nursing Progress Note Patient Name: Becca Magana Patient Location: [id number]/[id number]* Daily Note: Patient awaiting surgery with family. C/O continued nausea - dose of zofran IVP was given at 0825 worked well initially, but patient stated that it wore off quickly. Surgery aware and awaiting orders This note was completed by: Nusrat Ivey, RN Progress Notes ([facility]): Daisy Verduzco LPN 06/24/2018 11:11 AM Signed Est patient. [facility] follow up. Appetite poor, c/o nausea. Daisy Stone DO 06/24/2018 11:55 AM Signed Diagnosis: 1) Metastatic recurrence of stage III colon cancer. MSI stable. BRAF - A sequence change: c.1781A>G (p.Dxy320Qgd) was detected at approximately 48% allele proportion. [Reference sequence: ([id number])]. KRAS - No variant detected [Reference?sequence: ([id number])]. NRAS - No variant detected [Reference sequence: (NM_[id number])]. Patient referred by ongoing management of metastatic colon cancer. HPI: The patient is a 62 yo male who developed abdominal pain around June 2014. His symptoms progressively worsened throughout the spring. He also began losing weight in the spring and this culminated in a hospitalization for what was thought to be diverticulitis in December 2014. He underwent a CT scan which was thought to demonstrated a left lower quadrant abscess. The drain was placed and he was treated with antibiotic treatment. Pain flared and a repeat CT scan on 01/24/15 demonstrated marked inflammatory phlegmonous changes of the proximal sigmoid colon. He therefore underwent a colonoscopy and sigmoid colon resection with lymph node dissection on 01/29/2015. The sigmoid colon was noted to be adherent to the anterior abdominal wall and small bowel. The final pathology demonstrated an invasive moderately differentiated adenocarcinoma, tumor extension through the colonic wall and involving the muscularis propria of the small bowel. The proximal margin resection had a small focus of tumor present at the serosal surface. None of 25 lymph nodes were involved. The patient went on to receive 12 cycles FOLFOX whichshe finished on 09/13/2015. Surveillance CT scan the abdomen and pelvis on January 06, 2016 demonstrated a small omental nodules. He was treated with 4 cycles of FOLFIRI and then underwent exploratory laparotomy, excision of peritoneal/liver/small bowel/mesenteric nodules, heated intraperitoneal chemotherapy (HIPEC) administration for 100 minutes, cystoscopy with bilateral ureteral stent placement on 05/22/2016. Pathology: 1. Small bowel peritoneal nodules, excision (A) - Organizing fibrous adhesions. - No evidence of malignancy. 2. Left liver nodule, biopsy (B) - Adenocarcinoma in liver, consistent with colonic primary. 3. Omentum, excision (C) - Infiltrating adenocarcinoma, consistent with colonic primary. 4. Left upper quadrant abdominal wall, biopsy (D) - Infiltrating adenocarcinoma, consistent with colonic primary. 5. Pelvic nodule and omentum, excision (E) - Infiltrating adenocarcinoma, consistent with colonic primary. - One lymph node, negative for malignancy (0/1). 6. Ileal nodule, excision (F) - Infiltrating adenocarcinoma, consistent with colonic primary. In end of [place]/first week of August this year he underwent repeat staging workup (CT and PET) which unfortunately showed liver metastasis and intra-abdominal metastases. He recently started back on chemotherapy with FOLFIRI and cetuximab. He's had 2 cycles to date. Previous therapy: 1) FOLFOX ?12 cycles completed 09/13/2015. 2) FOLFIRI x4 cycles. 3) Exploratory lap 04/2016 with HIPEC (mitomycin). Current therapy: 1) FOLFIRI (with Vectibix--side effects permitting). Interim history: He was admitted for 23 hour observation last week to [facility] for worsening abdominal pain. CT showed no evidence of obstruction. Pain was controlled with pain medication. His bowels haven't moved but on the way here today he felt the urge to go after stopping pain medicines as of yesterday. He was able to move his bowels. He still having considerable pain. No nausea or vomiting. PMH, medications and allergies as below personally reviewed by me today. Any changes documented in appropriate section. ROS: Constitutional: Denies episodes night sweats. Neuro: Denies HIDALGO, vertigo, dizziness and imbalance. HEENT: No recent change in voice, vision or hearing. Resp: Denies cough, wheeze and hemoptysis. CVS: Denies exertional chest pain, PND, orthopnea and LE edema. GI: Denies dysgeusia. : Denies dysuria or gross hematuria. No symptoms of bladder outlet obstruction. Endo: Denies hot flashes. Denies polyuria and polydipsia. Denies heat and cold intolerance. Musculoskeletal: Denies bone, back, joint and muscular pain. Derm: Denies jaundice and diffuse pruritis. Heme: See above. Psych: Normal mood. PHYSICAL EXAM: Vitals: Blood pressure 115/83, pulse 102, temperature 36.8 ?C (98.2 ?F), temperature source Oral, weight 87.1 kg (192 lb). Well-appearing and in no acute distress. EYES: Sclerae are anicteric bilaterally. ENT: Oral mucosa is unremarkable. There is no sign of thrush or mucositis. NECK: Supple. No enlargement of thyroid. LYMPHATIC: There is no palpable cervical, supraclavicular, axillary or inguinal adenopathy. RESPIRATORY: Inspiratory breath sounds are of normal intensity in all woodruff. No rales, wheezes or rhonchi. Expiratory phase is normal. CARDIOVASCULAR: Rhythm is regular. Normal intensity S1/S2. There is no gallop or murmur. ABDOMEN: The abdomen is nondistended. No organomegaly. The periumbilical tumor is noticeably larger. Extremities: No swelling or edema. SKIN: No rash presently. 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 No focal motor weakness. MUSCULOSKELETAL: NNo muscle wasting. ASSESSMENT/PLAN: (C18.9) Malignant neoplasm of colon, unspecified part of colon (HCC) (primary encounter diagnosis) (C78.6, C80.1) Peritoneal carcinomatosis (HCC) (C78.7) Metastasis to liver (HCC) (L27.0) Drug rash Assessment: -KPS is 80-90%. -MMR proficient. [facility] sent previous testing that had been done at the time of his surgery 02/2016. Please see scanned document. -I reviewed the CT from [facility]. More convincing that he probably has a lupus small bowel adherent to the tumor causing intermittent obstructive symptoms. -I discussed the case with Dr. Dhillon is agreeable to see the patient on Sunday for potential ileostomy or bypass surgery depending on his assessment. Plan: -Appointment with Dr. Dhillon at Sunday. (I26.92) Chronic saddle pulmonary embolism without acute cor pulmonale (HCC) Assessment: -Symptoms of shortness of breath previously improved. -No unusual bleeding episodes. Plan: -Continue Xarelto can hold prior to surgery. Geraldo Stone, DO PROGRESS Observed: 06/24/2018 Status: COMPLETED Source: [place] 11:01 AM [facility] REPOSITORY HNO ID: [id number] Author: Geraldo Stone Service: (none) Author Type: Physician Type: Progress Notes Filed: 06/24/2018 11:55 AM Note Text: Diagnosis: 1) Metastatic recurrence of stage III colon cancer. MSI stable. BRAF - A sequence change: c.1781A>G (p.Xkn904Apz) was detected at approximately 48% allele proportion. [Reference sequence: (NM_[id number])]. KRAS - No variant detected [Reference?sequence: (NM_[id number])]. NRAS - No variant detected [Reference sequence: (NM_[id number])]. Patient referred by ongoing management of metastatic colon cancer. HPI: The patient is a 62 yo male who developed abdominal pain around June 2014. His symptoms progressively worsened throughout the spring. He also began losing weight in the spring and this culminated in a hospitalization for what was thought to be diverticulitis in December 2014. He underwent a CT scan which was thought to demonstrated a left lower quadrant abscess. The drain was placed and he was treated with antibiotic treatment. Pain flared and a repeat CT scan on 01/24/15 demonstrated marked inflammatory phlegmonous changes of the proximal sigmoid colon. He therefore underwent a colonoscopy and sigmoid colon resection with lymph node dissection on 01/29/2015. The sigmoid colon was noted to be adherent to the anterior abdominal wall and small bowel. The final pathology demonstrated an invasive moderately differentiated adenocarcinoma, tumor extension through the colonic wall and involving the muscularis propria of the small bowel. The proximal margin resection had a small focus of tumor present at the serosal surface. None of 25 lymph nodes were involved. The patient went on to receive 12 cycles FOLFOX which she finished on 09/13/2015. Surveillance CT scan the abdomen and pelvis on January 06, 2016 demonstrated a small omental nodules. He was treated with 4 cycles of FOLFIRI and then underwent exploratory laparotomy, excision of peritoneal/liver/small bowel/mesenteric nodules, heated intraperitoneal chemotherapy (HIPEC) administration for 100 minutes, cystoscopy with bilateral ureteral stent placement on 05/22/2016. Pathology: 1. Small bowel peritoneal nodules, excision (A) - Organizing fibrous adhesions. - No evidence of malignancy. 2. Left liver nodule, biopsy (B) - Adenocarcinoma in liver, consistent with colonic primary. 3. Omentum, excision (C) - Infiltrating adenocarcinoma, consistent with colonic primary. 4. Left upper quadrant abdominal wall, biopsy (D) - Infiltrating adenocarcinoma, consistent with colonic primary. 5. Pelvic nodule and omentum, excision (E) - Infiltrating adenocarcinoma, consistent with colonic primary. - One lymph node, negative for malignancy (0/1). 6. Ileal nodule, excision (F) - Infiltrating adenocarcinoma, consistent with colonic primary. In end of July/first week of August this year he underwent repeat staging workup (CT and PET) which unfortunately showed liver metastasis and intra-abdominal metastases. He recently started back on chemotherapy with FOLFIRI and cetuximab. He's had 2 cycles to date. Previous therapy: 1) FOLFOX ?12 cycles completed 09/13/2015. 2) FOLFIRI x4 cycles. 3) Exploratory lap 04/2016 with HIPEC (mitomycin). Current therapy: 1) FOLFIRI (with Vectibix--side effects permitting). Interim history: He was admitted for 23 hour observation last week to [facility] for worsening abdominal pain. CT showed no evidence of obstruction. Pain was controlled with pain medication. His bowels haven't moved but on the way here today he felt the urge to go after stopping pain medicines as of yesterday. He was able to move his bowels. He still having considerable pain. No nausea or vomiting. PMH, medications and allergies as below personally reviewed by me today. Any changes documented in appropriate section. ROS: Constitutional: Denies episodes night sweats. Neuro: Denies HIDALGO, vertigo, dizziness and imbalance. HEENT: No recent change in voice, vision or hearing. Resp: Denies cough, wheeze and hemoptysis. CVS: Denies exertional chest pain, PND, orthopnea and LE edema. GI: Denies dysgeusia. : Denies dysuria or gross hematuria. No symptoms of bladder outlet obstruction. Endo: Denies hot flashes. Denies polyuria and polydipsia. Denies heat and cold intolerance. Musculoskeletal: Denies bone, back, joint and muscular pain. Derm: Denies jaundice and diffuse pruritis. Heme: See above. Psych: Normal mood. PHYSICAL EXAM: Vitals: Blood pressure 115/83, pulse 102, temperature 36.8 ?C (98.2 ?F), temperature source Oral, weight 87.1 kg (192 lb). Well-appearing and in no acute distress. EYES: Sclerae are anicteric bilaterally. ENT: Oral mucosa is unremarkable. There is no sign of thrush or mucositis. NECK: Supple. No enlargement of thyroid. LYMPHATIC: There is no palpable cervical, supraclavicular, axillary or inguinal adenopathy. RESPIRATORY: Inspiratory breath sounds are of normal intensity in all woodruff. No rales, wheezes or rhonchi. Expiratory phase is normal. CARDIOVASCULAR: Rhythm is regular. Normal intensity S1/S2. There is no gallop or murmur. ABDOMEN: The abdomen is nondistended. No organomegaly. The periumbilical tumor is noticeably larger. Extremities: No swelling or edema. SKIN: No rash presently. 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 No focal motor weakness. MUSCULOSKELETAL: NNo muscle wasting. ASSESSMENT/PLAN: (C18.9) Malignant neoplasm of colon, unspecified part of colon (HCC) (primary encounter diagnosis) (C78.6, C80.1) Peritoneal carcinomatosis (HCC) (C78.7) Metastasis to liver (HCC) (L27.0) Drug rash Assessment: -KPS is 80-90%. -MMR proficient. [facility] sent previous testing that had been done at the time of his surgery 02/2016. Please see scanned document. -I reviewed the CT from [facility]. More convincing that he probably has a lupus small bowel adherent to the tumor causing intermittent obstructive symptoms. -I discussed the case with Dr. Dhillon is agreeable to see the patient on Sunday for potential ileostomy or bypass surgery depending on his assessment. Plan: -Appointment with Dr. Dhillon at Sunday. (I26.92) Chronic saddle pulmonary embolism without acute cor pulmonale (HCC) Assessment: -Symptoms of shortness of breath previously improved. -No unusual bleeding episodes. Plan: -Continue Xarelto can hold prior to surgery. Geraldo Stone DO CNOVSP Observed: 06/24/2018 Status: COMPLETED Source: [place] 10:30 AM [facility] REPOSITORY Visit (SP) Office ([place]) BECCA MAGANA ([id number]) 1955 M Date Time Provider Department 06/24/18 10:30 AM GERALDO STONE During your visit today, we recorded the following information about you: Temperature Pulse Blood pressure Weight 98.2 degrees 102/minute 115/83 87.1 kg Daisy Verduzco LPN 06/24/2018 11:11 AM Signed Est patient. [facility] follow up. Appetite poor, c/o nausea. Daisy Stone DO 06/24/2018 11:55 AM Signed Diagnosis: 1) Metastatic recurrence of stage III colon cancer. MSI stable. BRAF - A sequence change: [id number] ([id number]) was detected at approximately 48% allele proportion. [Reference sequence: (NM_[id number])]. KRAS - No variant detected [Reference?sequence: (NM_004985.4)]. NRAS - No variant detected [Reference sequence: (NM_[id number])]. Patient referred by ongoing management of metastatic colon cancer. HPI: The patient is a 62 yo male who developed abdominal pain around June 2014. His symptoms progressively worsened throughout the spring. He also began losing weight in the spring and this culminated in a hospitalization for what was thought to be diverticulitis in December 2014. He underwent a CT scan which was thought to demonstrated a left lower quadrant abscess. The drain was placed and he was treated with antibiotic treatment. Pain flared and a repeat CT scan on 01/24/15 demonstrated marked inflammatory phlegmonous changes of the proximal sigmoid colon. He therefore underwent a colonoscopy and sigmoid colon resection with lymph node dissection on 01/29/2015. The sigmoid colon was noted to be adherent to the anterior abdominal wall and small bowel. The final pathology demonstrated an invasive moderately differentiated adenocarcinoma, tumor extension through the colonic wall and involving the muscularis propria of the small bowel. The proximal margin resection had a small focus of tumor present at the serosal surface. None of 25 lymph nodes were involved. The patient went on to receive 12 cycles FOLFOX which she finished on 09/13/2015. Surveillance CT scan the abdomen and pelvis on January 06, 2016 demonstrated a small omental nodules. He was treated with 4 cycles of FOLFIRI and then underwent exploratory laparotomy, excision of peritoneal/liver/small bowel/mesenteric nodules, heated intraperitoneal chemotherapy (HIPEC) administration for 100 minutes, cystoscopy with bilateral ureteral stent placement on 05/22/2016. Pathology: 1. Small bowel peritoneal nodules, excision (A) - Organizing fibrous adhesions. - No evidence of malignancy. 2. Left liver nodule, biopsy (B) - Adenocarcinoma in liver, consistent with colonic primary. 3. Omentum, excision (C) - Infiltrating adenocarcinoma, consistent with colonic primary. 4. Left upper quadrant abdominal wall, biopsy (D) - Infiltrating adenocarcinoma, consistent with colonic primary. 5. Pelvic nodule and omentum, excision (E) - Infiltrating adenocarcinoma, consistent with colonic primary. - One lymph node, negative for malignancy (0/1). 6. Ileal nodule, excision (F) - Infiltrating adenocarcinoma, consistent with colonic primary. In end of July/first week of August this year he underwent repeat staging workup (CT and PET) which unfortunately showed liver metastasis and intra-abdominal metastases. He recently started back on chemotherapy with FOLFIRI and cetuximab. He's had 2 cycles to date. Previous therapy: 1) FOLFOX ?12 cycles completed 09/13/2015. 2) FOLFIRI x4 cycles. 3) Exploratory lap 04/2016 with HIPEC (mitomycin). Current therapy: 1) FOLFIRI (with Vectibix--side effects permitting). Interim history: He was admitted for 23 hour observation last week to [facility] for worsening abdominal pain. CT showed no evidence of obstruction. Pain was controlled with pain medication. His bowels haven't moved but on the way here today he felt the urge to go after stopping pain medicines as of yesterday. He was able to move his bowels. He still having considerable pain. No nausea or vomiting. PMH, medications and allergies as below personally reviewed by me today. Any changes documented in appropriate section. ROS: Constitutional: Denies episodes night sweats. Neuro: Denies HIDALGO, vertigo, dizziness and imbalance. HEENT: No recent change in voice, vision or hearing. Resp: Denies cough, wheeze and hemoptysis. CVS: Denies exertional chest pain, PND, orthopnea and LE edema. GI: Denies dysgeusia. : Denies dysuria or gross hematuria. No symptoms of bladder outlet obstruction. Endo: Denies hot flashes. Denies polyuria and polydipsia. Denies heat and cold intolerance. Musculoskeletal: Denies bone, back, joint and muscular pain. Derm: Denies jaundice and diffuse pruritis. Heme: See above. Psych: Normal mood. PHYSICAL EXAM: Vitals: Blood pressure 115/83, pulse 102, temperature 36.8 ?C (98.2 ?F), temperature source Oral, weight 87.1 kg (192 lb). Well-appearing and in no acute distress. EYES: Sclerae are anicteric bilaterally. ENT: Oral mucosa is unremarkable. There is no sign of thrush or mucositis. NECK: Supple. No enlargement of thyroid. LYMPHATIC: There is no palpable cervical, supraclavicular, axillary or inguinal adenopathy. RESPIRATORY: Inspiratory breath sounds are of normal intensity in all [place]. No rales, wheezes or rhonchi. Expiratory phase is normal. CARDIOVASCULAR: Rhythm is regular. Normal intensity S1/S2. There is no gallop or murmur. ABDOMEN: The abdomen is nondistended. No organomegaly. The periumbilical tumor is noticeably larger. Extremities: No swelling or edema. SKIN: No rash presently. 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 No focal motor weakness. MUSCULOSKELETAL: NNo muscle wasting. ASSESSMENT/PLAN: (C18.9) Malignant neoplasm of colon, unspecified part of colon (HCC) (primary encounter diagnosis) (C78.6, C80.1) Peritoneal carcinomatosis (HCC) (C78.7) Metastasis to liver (HCC) (L27.0) Drug rash Assessment: -KPS is 80-90%. -MMR proficient. [facility] sent previous testing that had been done at the time of his surgery 02/2016. Please see scanned document. -I reviewed the CT from [facility]. More convincing that he probably has a lupus small bowel adherent to the tumor causing intermittent obstructive symptoms. -I discussed the case with Dr. Dhillon is agreeable to see the patient on Sunday for potential ileostomy or bypass surgery depending on his assessment. Plan: -Appointment with Dr. Dhillon at Sunday. (I26.92) Chronic saddle pulmonary embolism without acute cor pulmonale (HCC) Assessment: -Symptoms of shortness of breath previously improved. -No unusual bleeding episodes. Plan: -Continue Xarelto can hold prior to surgery. Geraldo Stone DO Referring Provider: GERALDO STONE [[id number]] Allergies As of Date: 06/24/2018 (No Known Allergies) Date Reviewed: 06/24/2018 Reviewed by: Daisy Verduzco LPN - Fully Assessed Reason for Visit: Established Patient [175] Primary Visit Diagnosis:Malignant neoplasm of sigmoid colon (HCC) [C18.7] Other Visit Diagnosis:Peritoneal carcinomatosis (HCC) [C78.6, C80.1] Prescriptions as of 06/24/2018 Sig: PROMETHAZINE 25 MG TABLET Take 1 tablet by mouth every * MINOCYCLINE 100 MG CAPSULE Take 100 mg by mouth twice da* XARELTO 20 MG TABLET TAKE ONE TABLET BY MOUTH ROBERTA* POTASSIUM CHLORIDE ER 20 MEQ * Take 1 tablet by mouth three * ONDANSETRON HCL 8 MG TABLET Take 1 tablet by mouth every * DEXAMETHASONE 4 MG TABLET TAKE ONE TABLET BY MOUTH TWIC* Medication notes this encounter DEXAMETHASONE 4 MG TABLET >> Daisy Verduzco LPN 06/24/2018 10:50 AM >> DAISY VERDUZCO LPN [facility] Jun 24, 2018 10:50 AM Hasn't taken in 2 weeks Problem List As Of Date 06/24/2018 Noted Resolved Colon cancer (HCC) [C18.9] 08/21/2017 Peritoneal carcinomatosis (HCC) [C78.6, C80.1] INVALID FOR* Metastasis to liver (HCC) [C78.7] INVALID FOR* More... Drug rash [L27.0] INVALID FOR* Malignant neoplasm of sigmoid colon (HCC) [C18.*INVALID FOR* Chronic saddle pulmonary embolism without acute*INVALID FOR* Visit Notes: >> Daisy Verduzco LPN [facility] Jun 24, 2018 10:50 AM Status: Signed Est patient. [facility] follow up. Appetite poor, c/o nausea. Daisy Verduzco LPN Encounter Status:Closed by GERALDO STONE DO on 06/24/18 DISCHARGE SUMMARY Observed: 06/21/2018 Status: F Source: [place] 3:01 PM [facility] REPOSITORY [facility] Medical Records Department [address] [place] [place] [address] Discharge Summary 06/21/18 1445 MR#: [id number] Acct: [id number] Name: BECCA MAGANA Rep #: [id number] : 1955 62 From: Lester RED PCP: Mariely Chowdary MD Status: DIS FARHAN Y Location: ME3 [id number] <Lester Trinh - Last Filed: 06/21/18 14:45> Discharge Date and Diagnosis Date of Admission: 06/20/18 Date of Discharge: 06/21/18 - Primary Discharge Diagnosis Intractable Abdominal pain 2/2 colorectal cancer with peritoneal carcinomatsosis, s/p sigmoidectomy, chemo. Hx PE - Secondary Discharge Diagnosis Chronic Problems (Last Updated 06/20/18 @ 21:16 by Glen Johnson MD) Malignant neoplasm metastatic to colon with unknown primary site (Chronic) Hospital Course and Treatment Imaging Results: CT/Abdomen/Pelvis W IV Cont ONLY IMPRESSION: Soft tissue masses within the anterior abdominal wall consistent with metastases. Soft tissue focus within the mesentery consistent with peritoneal carcinomatosis. Fatty infiltration of the liver. Consults: Yaneth - oncology Operations: None Procedures: None Summary of Care Provided: Hospital Course: The patient is a 62 year old M with pmhx as above who is being treated by Dr. Stone for colorectal cancer, mets to the liver, peritoneum, small bowel, completed chemo about a month prior, who presented to the ER with intractable abdominal pain. CT abdomen showed carcinomatosis as above, and there was concern for ileus. He was made NPO and admitted to the Gen med floor and oncology was consulted. Dr. Wolfe felt the pain was 2/2 the cancer, and there was no obstruction. He was placed on morphine and norco, and a bowel regimen, and discharged home. He will follow up with Dr. Stone next week. He plans to pursue radiation in July after touring [place]. Minocycline was DCd (was on for rash from chemo which is complete) Patient was seen by Lester Trinh PA-C under the supervision of Dr. Salazar [] - Physical Exam General: Alert, Oriented x3, Cooperative HEENT: Atraumatic, PERRLA, EOMI, Normocephalic Neck: Supple, No JVD, Negative Carotid Bruits Lungs: Clear to auscultation, Normal air movement Cardiovascular: Regular rate, No murmurs Abdomen: Bowel Sounds Present, Soft, Tender Extremities: No edema, Capillary Refill Less than 3 Seconds Skin: No rashes, No breakdown Musculoskeletal: No Tenderness to Palpation of Joints or Extremities Neurological: Cranial nerves II-XII grossly intact Psych/Mental Status: Normal Affect, Appropriate, Alert and oriented to time, place, person, mood and affect Vital Signs Temp Pulse Resp BP Pulse Ox 98.5 F 100 18 118/74 100 06/21/18 12:22 06/21/18 12:22 06/21/18 12:22 06/21/18 12:22 06/21/18 12:22 Oxygen Delivery Method Room Air Weight: 185 lb 6.54 oz Body Mass Index (BMI) 25.1 Intake and Output for Last 24 Hours Intake Total 2234 / 2234 Output Total 925 / 925 Balance 1309 / 1309 Laboratory Tests Past 24 Hrs WBC 3.0 L WBC 2.7 L RBC 3.27 L Hgb 9.7 L Hct 30.1 L MCV 92.0 MCH 29.7 MCHC 32.2 RDW 15.0 H RDW Differential 50.6 H Plt Count 152 MPV 9.3 Immature Gran % (Auto) 0.000 Discharge Diet: No Restrictions Discharge Activity: Return to Normal Activity Home Medications: Medications to take at Discharge Ondansetron [Zofran] 8 mg PO PRN PRN 06/20/18 Potassium Chloride [Klor-Con M20] 40 meq PO BID 06/20/18 Rivaroxaban [Xarelto] 20 mg PO DAILY 06/20/18 proMETHazine tablet [Phenergan tablet] 25 mg PO PRN PRN 06/20/18 Bisacodyl [Dulcolax] 5 mg PO DAILY PRN PRN #30 tablet 06/21/18 Hydrocodone Bitart/Apap 5-325 [[place] 5/325] 1 tablet PO Q6H PRN PRN 7 Days #28 tablet 06/21/18 Magnesium Hydroxide [Milk Of Magnesia] 30 ml PO DAILY PRN PRN #1 bottle 06/21/18 Senna/Docusate Sodium [Senokot-S] 2 tablet PO BID #60 tablet 06/21/18 morphine SR tablet [Ms Contin] 15 mg PO BID #14 tablet 06/21/18 Following Prescrptions Were Given to Patient: Bisacodyl [Dulcolax] 5 mg PO DAILY PRN PRN #30 tablet PRN Reason: Constipation Hydrocodone Bitart/Apap 5-325 [[place] 5/325] 1 tablet PO Q6H PRN PRN 7 Days #28 tablet PRN Reason: Severe Pain (6-05/01) Magnesium Hydroxide [Milk Of Magnesia] 30 ml PO DAILY PRN PRN #1 bottle PRN Reason: Constipation morphine SR tablet [Ms Contin] 15 mg PO BID #14 tablet Senna/Docusate Sodium [Senokot-S] 2 tablet PO BID #60 tablet Primary Care Physician: [facility] Doctor,Out of [NON-STAFF] - Please follow up with your Primary Care Physician in: 1-2 weeks Please Follow Up With: Geraldo Stone DO When: 1 week Disposition: Home Minutes spent on discharge:: 35 Patient Condition:: Stable Medical Necessity - Tobacco Use Smoking Status: Former smoker Meaningful Use Info Meaningful Use Diagnoses (Choose all that apply): None applicable <Glen Salazar - Last Filed: 06/21/18 15:00> Discharge Date and Diagnosis - Secondary Discharge Diagnosis Chronic Problems (Last Updated 06/20/18 @ 21:16 by Glen Johnson MD) Malignant neoplasm metastatic to colon with unknown primary site (Chronic) Hospital Course and Treatment Summary of Care Provided: Hospitalist note: Discharge summary above reviewed and I agree with above discharge plan. Patient was admitted for intractable abdominal pain in context of history of metastatic colon cancer. CT scan abdomen and pelvis with IV contrast revealed soft tissue masses within the anterior abdominal wall consistent with metastasis as well as soft tissue focus within the mesentery consistent with peritoneal carcinomatosis. His routine blood work was remarkable for chronic anemia, otherwise normal. His LFT and lipase were normal. Patient was treated with pain medications. Oncology consulted and stated that his pain due to the metastatic cancer and there was no evidence of bowel obstruction. His vital signs were stable. With pain medications, his pain improved. Patient discharged home in a stable medical condition, discharged on [place] as needed for pain, Zofran as needed for nausea and vomiting, plan to follow-up with Dr. Stone next week, recommended follow-up with PCP in 1-2 weeks. - Physical Exam General: Alert, Oriented x3, Cooperative, No apparent distress. HEENT: Atraumatic, PERRLA, EOMI. Neck: Supple, No JVD, Negative Carotid Bruits, Trachea Midline, Thyroid Normal. Lungs: Clear to auscultation, Normal air movement, No rhonchi, No wheeze, No rales. Cardiovascular: Regular rate, Regular Rhythm, Normal S1, Normal S2, PMI Normal. Abdomen: Bowel Sounds Present, Soft, tenderness is just above the umbilicus, no guarding or rigidity, Non-Distended, No Hepato-splenomegaly. Extremities: No clubbing, No cyanosis, No edema Skin: No rashes, No breakdown Neurological: Neuro grossly intact Vital Signs are stable. This note was generated with [employer] software. It may contain incorrect words, spelling, and punctuation that were not noted in checking the note before signing. - Physical Exam Vital Signs Temp Pulse Resp BP Pulse Ox 98.5 F 100 18 118/74 100 06/21/18 12:22 06/21/18 12:22 06/21/18 12:22 06/21/18 12:22 06/21/18 12:22 Oxygen Delivery Method Room Air Weight: 185 lb 6.54 oz Body Mass Index (BMI) 25.1 Intake and Output for Last 24 Hours Intake Total 2234 / 2234 Output Total 925 / 925 Balance 1309 / 1309 Laboratory Tests Past 24 Hrs WBC 3.0 L WBC 2.7 L RBC 3.27 L Hgb 9.7 L Hct 30.1 L MCV 92.0 MCH 29.7 MCHC 32.2 RDW 15.0 H RDW Differential 50.6 H Plt Count 152 MPV 9.3 Immature Gran % (Auto) 0.000 Disposition: Home Minutes spent on discharge:: 24 Patient Condition:: Stable Meaningful Use Info Meaningful Use Diagnoses (Choose all that apply): None applicable Code Visit OBSV E AND M: [id number] Observation care discharge 06/21/18 1452 <Electronically signed by Lester RED> Date Lester RED 06/21/18 1501<Electronically signed by Glen Salazar MD> Cosigner Signature (if applicable): Date Glen Salazar MD CC: TEOFILO Trinh; Glen Salazar; Geraldo Stone DO; Mariely Chowdary MD Signed DISCHARGE INSTRUCTION Observed: 06/21/2018 Status: F Source: [place] 11:32 AM [facility] REPOSIT[facility] Medical Records Department [address] [address] Instructions for Home/Discharge Instructions 06/21/18 1131 MR#: [id number] Acct: [id number] Name: BECCA MAGANA Rep #: [id number] : 1955 62 From: Lester RED PCP: Mariely Chowdary MD Status: ADM FARHAN - Discharge Diagnoses Current Active Problems: Current Active and Chronic Problems (Last Updated 06/20/18 @ 21:16 by Glen Johnson MD) Intractable abdominal pain (Acute) Abdominal wall metastasis Malignant neoplasm metastatic to colon with unknown primary site (Chronic) Ileus, unspecified (Acute) You will use the following diet at home:: No restrictions Your food should be the consistency of: Regular Your liquids should be the consistency of: Regular/Thin Discharge Activity: Return to Normal Activity Allergies/Adverse Reactions: Allergies hydromorphone [From Dilaudid] Adverse Reaction (Verified 06/21/18 07:14) Other URINARY RETENTION Medications to take at Discharge Ondansetron [Zofran] 8 mg PO PRN PRN 06/20/18 Potassium Chloride [Klor-Con M20] 40 meq PO BID 06/20/18 Rivaroxaban [Xarelto] 20 mg PO DAILY 06/20/18 proMETHazine tablet [Phenergan tablet] 25 mg PO PRN PRN 06/20/18 Bisacodyl [Dulcolax] 5 mg PO DAILY PRN PRN #30 tablet 06/21/18 Hydrocodone Bitart/Apap 5-325 [[place] 5/325] 1 tablet PO Q6H PRN PRN 7 Days #28 tablet 06/21/18 Magnesium Hydroxide [Milk Of Magnesia] 30 ml PO DAILY PRN PRN #1 bottle 06/21/18 Senna/Docusate Sodium [Senokot-S] 2 tablet PO BID #60 tablet 06/21/18 morphine SR tablet [Ms Contin] 15 mg PO BID #14 tablet 06/21/18 The following prescriptions were given: Bisacodyl [Dulcolax] 5 mg PO DAILY PRN PRN #30 tablet PRN Reason: Constipation Hydrocodone Bitart/Apap 5-325 [[place] 5/325] 1 tablet PO Q6H PRN PRN 7 Days #28 tablet PRN Reason: Severe Pain (6-10/10) Magnesium Hydroxide [Milk Of Magnesia] 30 ml PO DAILY PRN PRN #1 bottle PRN Reason: Constipation morphine SR tablet [Ms Contin] 15 mg PO BID #14 tablet Senna/Docusate Sodium [Senokot-S] 2 tablet PO BID #60 tablet Primary Care Physician: [facility] Doctor,Out of [NON-STAFF] - Please follow up with your Primary Care Physician in: 1-2 weeks Test Results: Test results from this visit will be discussed in further detail at your follow-up appointment, if applicable. Please Follow Up With: Geraldo Stone DO When: 1 week Proposed Discharge Date: 06/21/18 06/21/18 1132 <Electronically signed by Lester RED> Date Lester RED CC: Geraldo Stone DO; Mariely Chowdary MD CONSULTATION Observed: 06/21/2018 Status: F Source: [place] 8:36 AM [facility] Medical Records Department [address] [place] [id number] Consultation 06/21/18 0813 MR#: [id number] Acct: [id number] Name: BECCA MAGANA Rep #: [id number] : 1955 62 From: Yogesh Wolfe MD PCP: Mariely Chowdary MD Status: ADM FARHAN Y Location: [place] [id number] Problem List (1) Intractable abdominal pain Status: Acute Comment: Abdominal wall metastasis (2) Malignant neoplasm metastatic to colon with unknown primary site Status: Chronic (3) Ileus, unspecified Status: Acute - Consult Date of Consult: 06/21/[address] Glen Johnson regarding a patient with metastatic colon cancer presented with abdominal pain and nausea. My final recommendation will be communicated by electronic medical records and to the patient. - Reason for Consult Problem List (1) Intractable abdominal pain Status: Acute History of Present Illness Date of Admission: 06/20/18 Chief Complaint: abdominal pain AND nausea The patient is a 62 year old M with a significant history of colon cancer status post sigmoidectomy in January 2015. His tumor was extending to the abdominal wall involving the muscularis propria of the small bowel. Patient underwent chemotherapy with FOLFOX finished in August 2015. CT scan in January 2016 shows small peritoneal omental metastases. Patient underwent additional chemotherapy with FOLFIRI underwent exploratory laparotomy and further resection of residual tumor with HIPEC intraperitoneal chemotherapy (mitomycin C) and bilateral ureteral stent placement on May 22, 2016. Remained free of disease until August 2017. On repeat CT scan unfortunately showed liver metastasis along with intra-abdominal metastasis. He started on chemotherapy FOLFIRI with cetuximab since spring 2017. His last cycle of chemotherapy was 2 weeks ago. He had a rash related to cetuximab AND Vectibix on minocycline. He presented with progressively worsening severe nonradiating vance-umbilical pain that started about 2 days ago. He denies any aggravating factor. At emergency department he received some Dilaudid IV that helped with his pain Zofran which helped his nausea. Patient has been having loose stools since chemotherapy. No abdominal bloating or distention. Associated with symptoms of nausea with dry heaving but no vomiting. Patient has had 2 bowel obstruction that [facility]. The day before his admission he had regular bowel movement. However on the morning of his admission he had a small bowel movement. He reported that typically he has diarrhea with chemotherapy. At the ED, CT of his abdomen showed metastasis of colon cancer without any noted bowel obstruction. Large mass seen in the tear abdominal mass consistent with metastasis. AND Possible ileus. At emergency department patient was going to be discharged home but because patient was fearful that he might have bowel obstruction he was subsequently admitted seen by oncology. Past Medical History Medical History: Medical History (Last Updated 06/20/18 @ 21:16 by Glen Johnson MD) Colon cancer C18.9 Allergies No Known Allergies Allergy (Verified 06/20/18 16:55) Home Medications: Ambulatory Orders Medication Instructions Recorded Dexamethasone [Decadron] 4 mg PO PRN PRN 06/20/18 Minocycline [Minocin] 100 mg PO BID 06/20/18 Ondansetron [Zofran] 8 mg PO PRN PRN 06/20/18 Surgical History: - - Sigmoidectomy; chemotherapy packing in abdomen Smoking Status: Former smoker Alcohol: Occasional - *Family History Paternal History Items: Cancer - His paternal grandfather had colon cancer. Review of Systems Constitutional: Reports: Anorexia. Denies: Chills, Fever, Weight Change HEENT: Denies: Head Aches, Sinus Congestion, Sinus Drainage Cardiovascular: Denies: Chest Pain, Palpitations Respiratory: Denies: Cough, Shortness of breath at rest, Sputum production Gastrointestinal: Reports: Abdominal Pain, Nausea. Denies: Vomiting Genitourinary: Denies: Dysuria Musculoskeletal: Denies: Joint Pain, Joint Tenderness Skin: Denies: Rash, Wounds Neurological: Denies: Numbness, Tingling, Focal weakness Psychiatric: Denies: Anxiety, Depression, Homicidal Ideations, Suicidal Ideations Hematologic/ Lymphatic: Denies: Easy Bruising, Easy Bleeding VTE Information - Inpt Only VTE Present on Admission: Yes VTE Mechan Device Prophylaxis: None VTE Pharm Prophylaxis ordered?: No Reason prophylaxis not ordered:: Treatment Not Indicated - Home Xarelto for PE continued. Patient Problems: Active and Suspected Problems (Last Updated 06/20/18 @ 21:16 by Glen Johnson MD) Intractable abdominal pain (Acute) - Physical Exam General: Alert, Oriented x3, Cooperative HEENT: Atraumatic, PERRLA, EOMI, Normocephalic Neck: Supple, No JVD, Negative Carotid Bruits Lungs: Clear to auscultation, Normal air movement Cardiovascular: Regular rate, No murmurs Abdomen: Soft, Bowel Sounds Not Present, Tender - Right vance- umbilical area. A palpable mass at right vance-umbilical area., - Extremities: No edema, Capillary Refill Less than 3 Seconds Skin: No rashes, No breakdown Musculoskeletal: No Tenderness to Palpation of Joints or Extremities Neurological: Cranial nerves II-XII grossly intact Psych/Mental Status: Normal Affect, Appropriate Vital Signs Temp Pulse Resp BP Pulse Ox 98 F 77 16 115/72 97 06/20/18 16:55 06/20/18 19:00 06/20/18 19:00 06/20/18 19:00 06/20/18 19:00 Oxygen Delivery Method Room Air Weight: 87 kg Body Mass Index (BMI) 25.9 Laboratory Results - last 24 hr WBC 3.0 L WBC 2.7 L RBC 3.27 L Hgb 9.7 L Hct 30.1 L MCV 92.0 MCH 29.7 MCHC 32.2 RDW 15.0 H RDW Differential 50.6 H Plt Count 152 MPV 9.3 Immature Gran % (Auto) 0.000 Assessment/Plan All Active Problems (Last Updated 06/20/18 @ 21:16 by Glen Johnson MD) Intractable abdominal pain (Acute) Nausea (Acute) Ileus (Acute) Leukopenia and anemia secondary to chemotherapy (Acute) Metastatic colon cancer (Chronic) The patient is a 62 year old M with a significant history of colon cancer status post sigmoidectomy with peritoneal metastasis He presented with progressively worsening severe nonradiating vance-umbilical pain secondary to abdominal wall metastasis Ileus and leukopenia/anemia secondary to chemotherapy 1) Intractable abdominal pain in the setting of metastatic colon cancer His abdominal pain is due to metastatic colon cancer. There is no evidence of small bowel obstruction. I personally reviewed CT scan with patient and family today. Plan: -Discharge home on MS Contin 15mg BID -Vicodin or ibuprofen every 6 hours as needed for breakthrough pain. -Start stool softeners; Senokot and Colace once his stool is formed -Continue Zofran and Phenergan as needed for nausea. 2) Colon cancer Status post sigmoidoscopy with chemotherapy on hold until after the new year. Patient reports that he go on vacation in June 2018; after which he will be started on palliative radiation treatment in July to his abdominal wall metastasis Plan: -Stop minocycline -Continue Xarelto -Follow-up with Dr. Stone next week. cc: Dr. Geraldo Stone; Dr. Glen Johnson 06/21/18 0836 <Electronically signed by Yogesh Wolfe MD> Date Yogesh Wolfe MD Cosigner Signature (if applicable): Date CC: Geraldo Stone DO; Mariely Chowdary MD Signed HISTORY AND PHYSICAL Observed: 06/21/2018 Status: F Source: [place] EXAM 6:47 AM [facility] Medical Records Department [address] [place] [address] History and Physical 06/20/182029 MR#: [id number] Acct: [id number] Name: BECCA MAGANA Rep #: [id number] : 1955 62 From: Glen Johnson MD PCP: Mariely Chowdary MD Status: ADM FARHAN Y Location: MS3 [id number] ADDENDUM by Glen Johnson MD on 06/21/18 at 0647 Code Visit Patient later reported that Dilaudid causes him to have urinary retention. Will discontinue Dilaudid and order prn morphine. Will start patient on a diet; and order bowel regimen in the setting of narcotic administration 06/21/18 0647 <Electronically signed by Glen Johnson MD> Date Glen Johnson MD cc: Glen Johnson MD; Mariely Chowdary MD * Signed Problem List (1) Intractable abdominal pain Status: Acute History of Present Illness Date of Admission: 06/20/18 Chief Complaint: abdominal pain The patient is a 62 year old M with a significant history of colon cancer status post sigmoidectomy and chemotherapy pack in his abdomen, and chemotherapy every 2 weeks; PE who presented with progressively worsening severe nonradiating vance-umbilical pain that started about 2 days ago. He denies any aggravating factor. At emergency department he received some Dilaudid IV that helped with his pain. Associated with her symptoms is nausea with dry heaving but no vomiting. Patient has had 2 bowel obstruction that [facility]. The day before his admission he had regular bowel movement. However on the morning of his admission he had a small bowel movement. He reported that typically he has diarrhea with chemotherapy. Patient's oncologist Dr. Stone advised patient come to the emergency department. At the ED, CT of his abdomen showed metastasis of colon cancer without any noted bowel obstruction. At emergency department patient was going to be discharged home but because patient was fearful that he might have bowel obstruction he was subsequently admitted. Past Medical History Medical History: Medical History (Last Updated 06/20/18 @ 21:16 by Glen Johnson MD) Colon cancer C18.9 Allergies No Known Allergies Allergy (Verified 06/20/18 16:55) Home Medications: Ambulatory Orders Medication Instructions Recorded Dexamethasone [Decadron] 4 mg PO PRN PRN 06/20/18 Minocycline [Minocin] 100 mg PO BID 06/20/18 Ondansetron [Zofran] 8 mg PO PRN PRN 06/20/18 Surgical History: - - Sigmoidectomy; chemotherapy packing in abdomen Smoking Status: Former smoker Alcohol: Occasional - *Family History Paternal History Items: Cancer - His paternal grandfather had colon cancer. Review of Systems Constitutional: Reports: Anorexia. Denies: Chills, Fever, Weight Change HEENT: Denies: Head Aches, Sinus Congestion, Sinus Drainage Cardiovascular: Denies: Chest Pain, Palpitations Respiratory: Denies: Cough, Shortness of breath at rest, Sputum production Gastrointestinal: Reports: Abdominal Pain, Nausea. Denies: Vomiting Genitourinary: Denies: Dysuria Musculoskeletal: Denies: Joint Pain, Joint Tenderness Skin: Denies: Rash, Wounds Neurological: Denies: Numbness, Tingling, Focal weakness Psychiatric: Denies: Anxiety, Depression, Homicidal Ideations, Suicidal Ideations Hematologic/ Lymphatic: Denies: Easy Bruising, Easy Bleeding VTE Information - Inpt Only VTE Present on Admission: Yes VTE Mechan Device Prophylaxis: None VTE Pharm Prophylaxis ordered?: No Reason prophylaxis not ordered:: Treatment Not Indicated - Home Xarelto for PE continued. Patient Problems: Active and Suspected Problems (Last Updated 06/20/18 @ 21:16 by Glen Johnson MD) Intractable abdominal pain (Acute) - Physical Exam General: Alert, Oriented x3, Cooperative HEENT: Atraumatic, PERRLA, EOMI, Normocephalic Neck: Supple, No JVD, Negative Carotid Bruits Lungs: Clear to auscultation, Normal air movement Cardiovascular: Regular rate, No murmurs Abdomen: Soft, Bowel Sounds Not Present, Tender - Right vance- umbilical area. A palpable mass at right vance-umbilical area., - Extremities: No edema, Capillary Refill Less than 3 Seconds Skin: No rashes, No breakdown Musculoskeletal: No Tenderness to Palpation of Joints or Extremities Neurological: Cranial nerves II-XII grossly intact Psych/Mental Status: Normal Affect, Appropriate Vital Signs Temp Pulse Resp BP Pulse Ox 98 F 77 16 115/72 97 06/20/18 16:55 06/20/18 19:00 06/20/18 19:00 06/20/18 19:00 06/20/18 19:00 Oxygen Delivery Method Room Air Weight: 87 kg Body Mass Index (BMI) 25.9 Laboratory Tests Past 24 Hrs WBC 3.0 L RBC 3.36 L Hgb 10.0 L Hct 30.3 L MCV 90.2 MCH 29.8 MCHC 33.0 RDW 14.9 H Assessment/Plan All Active Problems (Last Updated 06/20/18 @ 21:16 by Glen Johnson MD) Intractable abdominal pain (Acute) The patient is a 62 year old M with a significant history of colon cancer status post sigmoidectomy and chemotherapy pack in his abdomen, and chemotherapy every 2 weeks; PE who presented with progressively worsening severe nonradiating vance-umbilical pain. Intractable abdominal pain in the setting of colon cancer His abdominal pain is likely due to metastatic colon cancer. Supportive treatment with IV hydration; IV Dilaudid; antiemetics of IV Zofran and IV Phenergan. It is unlikely the patient has bowel obstruction since CT abdomen does not support that and he is not constipated but we will keep n.p.o. overnight and monitor. Colon cancer Status post sigmoidoscopy with chemotherapy packing with his abdomen; and regular chemotherapy. Patient reports that he go on vacation in June 2018 after which he will be started on radiation treatment. Reportedly he takes steroids when he gets his chemotherapy. Dr. Stone, his regular oncologist, consulted for inpatient. Facial rash Patient reports that some of his chemotherapy medication gives him facial rash for which reason he is on minocycline. Minocycline continued. History of PE Xarelto continued. Code Visit OBSV E AND M: [id number] Initial observation care L3 06/21/18 0616 <Electronically signed by Glen Johnson MD> Date Glen Johnson MD Cosigner Signature: Date (if applicable) CC: Glen Johnson MD; Mariely Chowdary MD Signed BASIC METABOLIC Collected: 06/21/2018 Status: F Source: [place] PROFILE (BMP) 5:50 AM [facility] REPOSITORY Order Comment: SPECIMEN OBTAINED FROM LINE DRAW TYPE CODE TESTS RESULT OUT OF RANGE REFERENCE UNITS LAB L501.0100 74-106 mg/dL Normal GLU 76 Result Comment: Please note revised GLUCOSE reference range effective 2017. LAB L501.1000 7-18 mg/dL Normal BUN 12 LAB L501.1100 0.70-1.30 mg/dL Normal CREAT,SERUM 0.94 Result Comment: The validity of the calculated GFR AND GFRAA in patients over 70 years has not been determined. Clinical correlation is essential. LAB L501.1110 >60 mL/min Normal EST GFR 86 Result Comment: Non- GFR Calc LAB L501.1115 >60 mL/min Normal EST GFR - AA 104 Result Comment: GFR Calc LAB L501.1255 ml/min Normal Estimated CRCL 87.14 LAB L501.1300 10-20 RATIO Normal BUN/CRE 12.8 LAB L501.2200 8.5-10 mg/dL Low .1 CA 8.2 LAB L501.5300 136-14 mmol/L High 5 NA 146 LAB L501.5600 3.5-5. mmol/L Normal 1 K 3.8 LAB L501.5900 98-107 mmol/L High CL 114 LAB L501.6100 21.0-3 mmol/L Normal 2.0 CO2 23.0 LAB L501.6200 5-15 Normal GAP 9 Performed By: #### L500.2500 #### [facility] [address] [place], [address] CBC W/DIFF, AUTOMATED Collected: 06/21/2018 Status: F Source: [place] 5:50 AM [facility] TYPE CODE TESTS RESULT OUT OF RANGE REFERENCE UNITS LAB L100.1000 4.4-11.0 K/mm3 Low WBC 2.7 LAB L100.1200 4.6-6.2 M/mm3 Low RBC 3.27 LAB L100.1300 13.0-16.5 g/dl Low HGB 9.7 LAB L100.1400 40-54 % Low HCT 30.1 LAB L100.1500 80-94 fL Normal MCV 92.0 LAB L100.1600 27.0-32.0 pg Normal MCH 29.7 LAB L100.1700 32-36 g/gl Normal MCHC 32.2 LAB L100.1810 11.6-14.6 % High RDW CV 15.0 LAB L100.1820 35.1-43.9 fl High RDW SD 50.6 LAB L100.1900 150-450 K/mm3 Normal PLT 152 LAB L100.2000 6.2-12.0 fl Normal MPV 9.3 LAB L100.2100 47-70 % Low NEUT% 29.7 LAB L100.2200 19-41 % High LY% 43.4 LAB L100.2300 0-10 % High MONO% 21.7 LAB L100.2400 0-5 % Normal EO% 3.7 LAB L100.2500 0-1 % High BASO% 1.5 LAB L100.2550 0.0-0.9 % Normal IM GRAN % 0.000 Result Comment: IG% - Immature Granulocytes (promyelocytes, myelocytes and metamyelocytes) > 1% indicates that a LEFT SHIFT is Present. LAB L100.2620 2.0-7.7 X10 3/uL Low Absolute Neut 0.8 LAB L100.2720 0.83-4.51 X10 3/ul Normal Absolute Lymph 1.16 Performed By: #### L100.0100 #### [facility] [address] [place], [address] EMERGENCY DEPARTMENT Observed: 06/20/2018 Status: F Source: [place] SUMMARY 11:54 PM [facility] Medical Records Department [address] [place] [address] Emergency Department Summary 06/20/18 1726 MR#: [id number] Acct: [id number] Name: BECCA MAGANA Rep #: [id number] : 1955 62 From: Kvng Gerardo MD PCP: Mariely Chowdary MD Status: ADM FARHAN - ER Visit Summary Date of Service: 06/20/18 Chief Complaint: Abdominal pain History of Present Illness: The patient is a 62 M history of colon CA with abdominal wall metastases. He has had a prior sigmoidectomy. Also prior appendectomy and cholecystectomy. He has had a prior PE and is on Xarelto. Patient's been admitted to [facility] twice in the last 4 months for abdominal pain and what he states her bowel obstructions. He is having the same type of pain for the last 2 days. Limited bowel movement in the last 24 hours. No melena. No fever. He does have nausea. But no vomiting. No dysuria. He is able to urinate. Physical Examination: Middle-aged male. Complaint of pain. Vital signs are stable. He is afebrile. HEENT exam unremarkable. Neck nontender no lymphadenopathy. Lungs clear to auscultation bilaterally. Heart regular rate and rhythm no murmur. Abdomen is soft. Nondistended. He does have a hard mass just above his umbilicus appears to be on the abdominal wall on the inside. He also has some mild bruising by his bellybutton on the which he states he gets from time to time. His abdomen otherwise is soft and nondistended. Normal bowel sounds. No peritoneal signs. He is moving all 4 extremities. Calves are without edema. No cords. Neurologically is awake and alert with no focal motor deficits. Test Results: CBC shows a white count of 3.0. Hemoglobin of 10. I have no old labs available for comparison. Gap of 8 creatinine 0.9. Liver enzymes are normal. Lipase is normal. He had a CAT scan done of his abdomen with IV contrast only which shows a soft tissue mass and peritoneal carcinomatosis but no signs of an acute obstruction. No perforation. Otherwise unremarkable. I discussed all his test results with the patient. Emergency Department Course and Treatment: Patient treated with normal saline times 1 L. Dilaudid for pain and Zofran for nausea. Patient is doing better on repeat exam. Him and his are very anxious he has had bowel obstructions before or the day concerned about going home. He is still having some pain and nausea. He will be admitted for observation and pain control. I have spoken to Dr. Yaneth wells for the patient's oncologist. I have the hospitalist on page for admission. Treatment Plan: Admit for pain control and further observation. Disposition: Observation Impression: Acute abdominal pain Known history of colon CA with abdominal wall metastases This note was generated with [employer] dictation software. It may contain incorrect words, spelling, and punctuation that were not noted in review of the chart prior to signing ED Disposition - Plan for ED Patient: Chief Complaint: Abd Pain Referrals: [facility] Doctor,Out of [Primary Care Provider] - What to do if you have Problems For any increased pain, shortness of breath, bleeding, nausea or vomiting, chest pain, or any unexpected problems, contact your Primary Care Provider. Call [facility] ([phone]) or report to the closest Emergency Room. Call 911 if necessary. 06/20/18 6724 <Electronically signed by Kvng Gerardo MD> Date Kvng Gerardo MD Cosigner Signature (If Indicated): Date CC: Mariely Chowdary MD CBC W/DIFF, AUTOMATED Collected: 06/20/2018 Status: F Source: [place] 5:49 PM [facility] TYPE CODE TESTS RESULT OUT OF RANGE REFERENCE UNITS LAB L100.1000 4.4-11.0 K/mm3 Low WBC 3.0 LAB L100.1200 4.6-6.2 M/mm3 Low RBC 3.36 LAB L100.1300 13.0-16.5 g/dl Low HGB 10.0 LAB L100.1400 40-54 % Low HCT 30.3 LAB L100.1500 80-94 fL Normal MCV 90.2 LAB L100.1600 27.0-32.0 pg Normal MCH 29.8 LAB L100.1700 32-36 g/gl Normal MCHC 33.0 LAB L100.1810 11.6-14.6 % High RDW CV 14.9 LAB L100.1820 35.1-43.9 fl High RDW SD 48.8 LAB L100.1900 150-450 K/mm3 Low PLT 138 LAB L100.2000 6.2-12.0 fl Normal MPV 8.7 LAB L100.2100 47-70 % Low NEUT% 32.8 LAB L100.2200 19-41 % High LY% 43.0 LAB L100.2300 0-10 % High MONO% 21.5 LAB L100.2400 0-5 % Normal EO% 1.7 LAB L100.2500 0-1 % Normal BASO% 1.0 LAB L100.2550 0.0-0.9 % Normal IM GRAN % 0.000 Result Comment: IG% - Immature Granulocytes (promyelocytes, myelocytes and metamyelocytes) > 1% indicates that a LEFT SHIFT is Present. LAB L100.2620 2.0-7.7 X10 3/uL Low Absolute Neut 1.0 LAB L100.2720 0.83-4.51 X10 3/ul Normal Absolute Lymph 1.28 LAB L100.4500 Normal SMEAR COMMENT SCANNED Result Comment: NEUTROPENIA NOTED Performed By: #### L100.0100 #### [facility] [address] [place], [address] BASIC METABOLIC Collected: 06/20/2018 Status: F Source: [place] PROFILE ([facility]) 5:49 PM [facility] TYPE CODE TESTS RESULT OUT OF RANGE REFERENCE UNITS LAB L501.0100 74-106 mg/dL Normal GLU 85 Result Comment: Please note revised GLUCOSE reference range effective 2017. LAB L501.1000 7-18 mg/dL Normal BUN 13 LAB L501.1100 0.70-1.30 mg/dL Normal CREAT,SERUM 0.96 Result Comment: The validity of the calculated GFR AND GFRAA in patients over 70 years has not been determined. Clinical correlation is essential. LAB L501.1110 >60 mL/min Normal EST GFR 83 Result Comment: Non- GFR Calc LAB L501.1115 >60 mL/min Normal EST GFR - AA 101 Result Comment: GFR Calc LAB L501.1255 ml/min Normal Estimated CRCL 85.32 LAB L501.1300 10-20 RATIO Normal BUN/CRE 13.5 LAB L501.2200 8.5-10 mg/dL Low .1 CA 8.3 LAB L501.5300 136-14 mmol/L Normal 5 NA 144 LAB L501.5600 3.5-5. mmol/L Normal 1 K 3.7 LAB L501.5900 98-107 mmol/L High CL 114 LAB L501.6100 21.0-3 mmol/L Normal 2.0 CO2 22.0 LAB L501.6200 5-15 Normal GAP 8 Performed By: #### L500.2500, L500.3400, L501.2450 #### [facility] [address] [place], [address] LIVER PROFILE Collected: 06/20/2018 Status: F Source: [place] 5:49 PM [facility] TYPE CODE TESTS RESULT OUT OF RANGE REFERENCE UNITS LAB L501.1500 6.4-8.2 g/dL Low T PROT 5.4 LAB L501.1800 3.2-5.0 g/dL Low ALB 2.8 LAB L501.1950 2.2-4.2 g/dL Normal GLOB 2.6 LAB L501.4100 15-37 U/L Normal AST 24 LAB L501.4305 45-117 U/L Normal ALK P 82 LAB L501.4405 16-61 U/L Normal ALT 26 LAB L501.4600 0.20-1.00 mg/dL Normal T BILI 0.70 LAB L501.4700 0.00-0.30 mg/dL Normal D BILI 0.20 Performed By: #### L500.2500, L500.3400, L501.2450 #### [facility] [address] [place], [address] LIPASE Collected: 06/20/2018 Status: F Source: [place] 5:49 PM [facility] TYPE CODE TESTS RESULT OUT OF REFERENCE UNITS RANGE LAB L501.2450 73-393 U/L Low LIPASE 50 Performed By: #### L500.2500, L500.3400, L501.2450 #### [facility] [address] [place], [address] ABDOMEN/PELVIS W IV CONT Observed: 06/20/2018 Status: F Source: [place] ONLY 5:26 PM [facility] Imaging Services [address] [place] [address] Abdomen/Pelvis W IV Cont ONLY MR#: [id number] Acct: [id number] Name: BECCA MAGANA A Rep #: [id number] : 1955 M 62 From: Zahra Gutierrez MD PCP: OUT OF TOWN DOCTOR Status: REG ER Study: Abdomen/Pelvis W IV Cont ONLY Date of Exam: 06/20/18 Exam# [id number] Ordering Dr: Kvng Gerardo MD STUDY: CT ABDOMEN AND PELVIS WITH CONTRAST REASON FOR EXAM: Male, 62 years old. Abdominal pain around tumor site. RADIATION DOSAGE (If Supplied By Facility): CTDIvol = ( 16.03 ) mGy, DLP = ( 988.04 ) mGycm TECHNIQUE: Transaxial images were obtained from the dome of the diaphragm to the symphysis pubis without oral contrast. 100ML ml of Isovue 300 contrast was administered. Sagittal and coronal images were reconstructed. Individualized dose optimization techniques were used for this CT. COMPARISON: None. FINDINGS: The visualized lung bases are unremarkable. The visualized portions of the heart are within normal limits. The liver is diffusely low in attenuation consistent fatty infiltration. There is non-visualization of the gallbladder, which may be secondary to either contraction or a prior cholecystectomy. Normal spleen. Normal pancreas. Normal bilateral adrenal glands. Normal right kidney. Normal left kidney. Normal visualized stomach. Normal small intestine. There are anastomotic sutures within the sigmoid colon. The appendix appears to be surgically absent. There is a enhancing 1 cm soft tissue mass within the mesentery within the mid abdomen. There is an enhancing 6.9 x 2.6 x 5.4 cm soft tissue mass within the anterior abdominal wall within the supraumbilical region. This soft tissue mass extends into the peritoneal cavity and abuts loops of small bowel. There is an additional similar appearing soft tissue focus within the lower anterior abdominal wall cranial to the pubic symphysis measuring 4.7 x 2.6 x 5.1 cm Normal abdominal aorta. Normal inferior vena cava. Normal retroperitoneum. Normal urinary bladder. Normal abdominal wall. There are diffuse degenerative changes of the visualized lumbar spine. CT/Abdomen/Pelvis W IV Cont ONLY IMPRESSION: Soft tissue masses within the anterior abdominal wall consistent with metastases. Soft tissue focus within the mesentery consistent with peritoneal carcinomatosis. Fatty infiltration of the liver. Electronically Signed: Zahra Gutierrez MD at 18:58 EST Tel , Service support , CC: Kvng Gerardo MD; OUT OF TOWN DOCTOR Dyeing Machine Feeder: Signed CT-ABDOMEN/PELVIS W IV CONT Observed: 06/20/2018 Status: F Source: [place] ONLY IMPORT 12:00 AM [facility] REPOSITORY Images were obtained outside of [facility] [id number] XR OUTSIDE CD DICOM Observed: 06/20/2018 Status: F Source: [place] IMPORT -NBNR 12:00 AM [facility] REPOSITORY Images were obtained outside of [facility] [id number] Observed: 06/17/2018 Status: COMPLETED Source: [place] 2:00 PM [facility] REPOSITORY Visit (SP) Office (DAMASO) MAGANABECCAALLYN ([id number]) 1955 M Date Time Provider Department 06/17/18 2:00 PM TATIANA CARTAGENA During your visit today, we recorded the following information about you: Temperature Pulse Blood pressure Weight 98.8 degrees 113/minute 103/70 85.7 kg Tatiana Cartagena APRN.CNP 06/18/2018 1:00 PM Signed Chief Complaint Patient presents with: Established Patient HPI: Becca Magana is a 62 year old male who presents here today for complaints of nausea/fatigue/dizziness since last treatment. See phone note. Per Dr. Stone's previous note: H/o abdominal pain around June 2014. His symptoms progressively worsened throughout the spring. He also began losing weight in the spring and this culminated in a hospitalization for what was thought to be diverticulitis in December 2014. He underwent a CT scan which was thought to demonstrated a left lower quadrant abscess. The drain was placed and he was treated with antibiotic treatment. Pain flared and a repeat CT scan on 01/24/15 demonstrated marked inflammatory phlegmonous changes of the proximal sigmoid colon. He therefore underwent a colonoscopy and sigmoid colon resection with lymph node dissection on 01/29/2015. The sigmoid colon was noted to be adherent to the anterior abdominal wall and small bowel. The final pathology demonstrated an invasive moderately differentiated adenocarcinoma, tumor extension through the colonic wall and involving the muscularis propria of the small bowel. The proximal margin resection had a small focus of tumor present at the serosal surface. None of 25 lymph nodes were involved. The patient went on to receive 12 cycles FOLFOX which she finished on 09/13/2015. ? Surveillance CT scan the abdomen and pelvis on January 06, 2016 demonstrated a small omental nodules. He was treated with 4 cycles of FOLFIRI and then underwent exploratory laparotomy, excision of peritoneal/liver/small bowel/mesenteric nodules, heated intraperitoneal chemotherapy (HIPEC) administration for 100 minutes, cystoscopy with bilateral ureteral stent placement on 05/22/2016. ? Pathology: 1. Small bowel peritoneal nodules, excision (A) - Organizing fibrous adhesions. - No evidence of malignancy. 2. Left liver nodule, biopsy (B) - Adenocarcinoma in liver, consistent with colonic primary. 3. Omentum, excision (C) - Infiltrating adenocarcinoma, consistent with colonic primary. 4. Left upper quadrant abdominal wall, biopsy (D) - Infiltrating adenocarcinoma, consistent with colonic primary. 5. Pelvic nodule and omentum, excision (E) - Infiltrating adenocarcinoma, consistent with colonic primary. - One lymph node, negative for malignancy (0/1). 6. Ileal nodule, excision (F) - Infiltrating adenocarcinoma, consistent with colonic primary. ? In end of July/first week of August this year he underwent repeat staging workup (CT and PET) which unfortunately showed liver metastasis and intra-abdominal metastases. ? He recently started back on chemotherapy with FOLFIRI and cetuximab. He's had 2 cycles to date. ? Previous therapy: 1) FOLFOX ?12 cycles completed 09/13/2015. 2) FOLFIRI x4 cycles. 3) Exploratory lap 04/2016 with HIPEC (mitomycin). ? Current therapy: 1) FOLFIRI (with Vectibix--side effects permitting). ? I'm not bouncing back as quickly this time. Appetite:I'm eating but everything turns to diarrhea. I get nauseated and then I try to eat. Energy level:very little energy-I don't want to go to work but I do. Denies fevers. Mouth:denies mouth sores Resp:denies cough or sob at rest, +arenas Cardiac:denies chest pain/palpitations GI:occ. pain to tumor site, +nausea-takes zofran with relief for an hour or two, denies vomiting, moving bowels regularly-more soft I feel like food goes right through me. :denies dysuria/hematuria Extrem:denies pain elsewhere Skin:facial rash-resolving Heme:denies bleeding The ROS is otherwise negative. Past medical history, appointments, medications, allergies reviewed. No changes. EXAM: BP 103/70 Pulse 113 Temp 37.1 ?C (98.8 ?F) (Oral) Wt 85.7 kg (189 lb) SpO2 99% BMI 26.55 kg/m? APPEARANCE tired appearing, alert, in no acute distress, well- hydrated, well nourished. MOUTH no mucositis/thrush HEART RRR with normal S1 and S2, no murmurs LUNG clear to auscultation LYMPH NODES No cervical lymphadenopathy, No supraclavicular lymphadenopathy and No axillary lymphadenopathy. ABDOMEN bowel sounds normoactive, soft, mild tenderness, non- distended, firm tumor above/R lateral umbilicus EXTREMITIES No edema NEURO Awake, alert and oriented x 3, Normal gait and No involuntary motions. SKIN Skin color, texture, turgor normal, no suspicious rashes or lesions LABS: Component Latest Ref Rng AND Units 06/03/2018 06/17/2018 WBC, [place] 3.70 - 11.00 k/uL 3.54 (L) 3.73 RBC, [place] 4.20 - 6.00 m/uL 3.10 (L) 3.56 (L) Hemoglobin, [place] 13.0 - 17.0 g/dL 9.5 (L) 10.8 (L) Hematocrit, [place] 39.0 - 51.0 % 29.1 (L) 32.3 (L) MCV, [place] 80.0 - 100.0 fL 93.9 90.7 MCH, [place] 26.0 - 34.0 pg 30.6 30.3 MCHC, [place] 30.5 - 36.0 g/dL 32.6 33.4 RDW, [place] 11.5 - 15.0 % 14.9 14.6 Platelet Cnt, [place] 150 - 400 k/uL 173 137 (L) MPV, [place] 9.0 - 12.7 fL 9.0 9.8 Absol Gran Count 1.45 - 7.50 k/uL 2.04 BMP: Pending RADIOLOGY: CXR: Pending ASSESSMENT/PLAN: 1. Malignant neoplasm of sigmoid colon (HCC) - ICD9: 153.3, ICD10: C18.7 (primary diagnosis) 2. Metastasis to liver (HCC) - ICD9: 197.7, ICD10: C78.7 3. Peritoneal carcinomatosis (HCC) - ICD9: 197.6, 199.1, ICD10: C78.6, C80.1 4. Drug rash - ICD9: 693.0, ICD10: L27.0 5. Dehydration - ICD9: 276.51, ICD10: E86.0 - CXR pending. - Reviewed CBC with pt. - Stop zofran. Trial phenergan. - Rx phenergan. - NS 1 Liter and phenergan today. See [place] orders. - Follow up as scheduled for CT's. - Pt. aware to call office with any questions/concerns. The patient indicates understanding of these issues and agrees with the plan. Tatiana Cartagena, MELLISA.STRUCTURAL WORKER Referring Provider: GERALDO STONE [[id number]] Allergies As of Date: 06/17/2018 (No Known Allergies) Date Reviewed: 06/17/2018 Reviewed by: Tatiana Cartagena - Fully Assessed Reason for Visit: Established Patient [[id number]] Primary Visit Diagnosis:Malignant neoplasm of sigmoid colon (HCC) [C18.7] Other Visit Diagnoses:Metastasis to liver (HCC) [C78.7] Peritoneal carcinomatosis (HCC) [C78.6, C80.1] Drug rash [L27.0] Dehydration [E86.0] Order(s):promethazine (PHENERGAN) 25 mg tabletTake 1 tablet by mouth every 6 hours as needed. FOR NAUSEADisp: 20 tabletRfl: 2 Follow-up and Disposition History Recorded Prescriptions as of 06/17/2018 Sig: DEXAMETHASONE 4 MG TABLET TAKE ONE TABLET BY MOUTH TWIC* MINOCYCLINE 100 MG CAPSULE Take 100 mg by mouth twice da* XARELTO 20 MG TABLET TAKE ONE TABLET BY MOUTH ROBERTA* POTASSIUM CHLORIDE ER 20 MEQ * Take 1 tablet by mouth three * ONDANSETRON HCL 8 MG TABLET Take 1 tablet by mouth every * PROMETHAZINE 25 MG TABLET Take 1 tablet by mouth every * Problem List As Of Date 06/17/2018 Noted Resolved Colon cancer (HCC) [C18.9] 08/21/2017 Peritoneal carcinomatosis (HCC) [C78.6, C80.1] INVALID FOR* Metastasis to liver (HCC) [C78.7] INVALID FOR* More... Drug rash [L27.0] INVALID FOR* Malignant neoplasm of sigmoid colon (HCC) [C18.*INVALID FOR* Chronic saddle pulmonary embolism without acute*INVALID FOR* Encounter Status:Closed by TATIANA CARTAGENA STRUCTURAL WORKER on 06/18/18 PROGRESS Observed: 06/17/2018 Status: COMPLETED Source: [place] 1:41 PM [facility] REPOSITORY HNO ID: [id number] Author: Tatiana Cartagena Service: (none) Author Type: Nurse Practitioner Type: Progress Notes Filed: 06/18/2018 1:00 PM Note Text: Chief Complaint Patient presents with: Established Patient HPI: Becca Magana is a 62 year old male who presents here today for complaints of nausea/fatigue/dizziness since last treatment. See phone note. Per Dr. Stone's previous note: H/o abdominal pain around June 2014. His symptoms progressively worsened throughout the spring. He also began losing weight in the spring and this culminated in a hospitalization for what was thought to be diverticulitis in December 2014. He underwent a CT scan which was thought to demonstrated a left lower quadrant abscess. The drain was placed and he was treated with antibiotic treatment. Pain flared and a repeat CT scan on 01/24/15 demonstrated marked inflammatory phlegmonous changes of the proximal sigmoid colon. He therefore underwent a colonoscopy and sigmoid colon resection with lymph node dissection on 01/29/2015. The sigmoid colon was noted to be adherent to the anterior abdominal wall and small bowel. The final pathology demonstrated an invasive moderately differentiated adenocarcinoma, tumor extension through the colonic wall and involving the muscularis propria of the small bowel. The proximal margin resection had a small focus of tumor present at the serosal surface. None of 25 lymph nodes were involved. The patient went on to receive 12 cycles FOLFOX which she finished on 09/13/2015. ? Surveillance CT scan the abdomen and pelvis on January 06, 2016 demonstrated a small omental nodules. He was treated with 4 cycles of FOLFIRI and then underwent exploratory laparotomy, excision of peritoneal/liver/small bowel/mesenteric nodules, heated intraperitoneal chemotherapy (HIPEC) administration for 100 minutes, cystoscopy with bilateral ureteral stent placement on 05/22/2016. ? Pathology: 1. Small bowel peritoneal nodules, excision (A) - Organizing fibrous adhesions. - No evidence of malignancy. 2. Left liver nodule, biopsy (B) - Adenocarcinoma in liver, consistent with colonic primary. 3. Omentum, excision (C) - Infiltrating adenocarcinoma, consistent with colonic primary. 4. Left upper quadrant abdominal wall, biopsy (D) - Infiltrating adenocarcinoma, consistent with colonic primary. 5. Pelvic nodule and omentum, excision (E) - Infiltrating adenocarcinoma, consistent with colonic primary. - One lymph node, negative for malignancy (0/1). 6. Ileal nodule, excision (F) - Infiltrating adenocarcinoma, consistent with colonic primary. ? In end of July/first week of August this year he underwent repeat staging workup (CT and PET) which unfortunately showed liver metastasis and intra-abdominal metastases. ? He recently started back on chemotherapy with FOLFIRI and cetuximab. He's had 2 cycles to date. ? Previous therapy: 1) FOLFOX ?12 cycles completed 09/13/2015. 2) FOLFIRI x4 cycles. 3) Exploratory lap 04/2016 with HIPEC (mitomycin). ? Current therapy: 1) FOLFIRI (with Vectibix--side effects permitting). ? I'm not bouncing back as quickly this time. Appetite:I'm eating but everything turns to diarrhea. I get nauseated and then I try to eat. Energy level:very little energy-I don't want to go to work but I do. Denies fevers. Mouth:denies mouth sores Resp:denies cough or sob at rest, +arenas Cardiac:denies chest pain/palpitations GI:occ. pain to tumor site, +nausea-takes zofran with relief for an hour or two, denies vomiting, moving bowels regularly-more soft I feel like food goes right through me. :denies dysuria/hematuria Extrem:denies pain elsewhere Skin:facial rash-resolving Heme:denies bleeding The ROS is otherwise negative. Past medical history, appointments, medications, allergies reviewed. No changes. EXAM: BP 103/70 Pulse 113 Temp 37.1 ?C (98.8 ?F) (Oral) Wt 85.7 kg (189 lb) SpO2 99% BMI 26.55 kg/m? APPEARANCE tired appearing, alert, in no acute distress, well-hydrated, well nourished. MOUTH no mucositis/thrush HEART RRR with normal S1 and S2, no murmurs LUNG clear to auscultation LYMPH NODES No cervical lymphadenopathy, No supraclavicular lymphadenopathy and No axillary lymphadenopathy. ABDOMEN bowel sounds normoactive, soft, mild tenderness, non-distended, firm tumor above/R lateral umbilicus EXTREMITIES No edema NEURO Awake, alert and oriented x 3, Normal gait and No involuntary motions. SKIN Skin color, texture, turgor normal, no suspicious rashes or lesions LABS: Component Latest Ref Rng AND Units 06/03/2018 06/17/2018 WBC, [place] 3.70 - 11.00 k/uL 3.54 (L) 3.73 RBC, [place] 4.20 - 6.00 m/uL 3.10 (L) 3.56 (L) Hemoglobin, [place] 13.0 - 17.0 g/dL 9.5 (L) 10.8 (L) Hematocrit, [place] 39.0 - 51.0 % 29.1 (L) 32.3 (L) MCV, [place] 80.0 - 100.0 fL 93.9 90.7 MCH, [place] 26.0 - 34.0 pg 30.6 30.3 MCHC, [place] 30.5 - 36.0 g/dL 32.6 33.4 RDW, [place] 11.5 - 15.0 % 14.9 14.6 Platelet Cnt, [place] 150 - 400 k/uL 173 137 (L) MPV, [place] 9.0 - 12.7 fL 9.0 9.8 Absol Gran Count 1.45 - 7.50 k/uL 2.04 BMP: Pending RADIOLOGY: CXR: Pending ASSESSMENT/PLAN: 1. Malignant neoplasm of sigmoid colon (HCC) - ICD9: 153.3, ICD10: C18.7 (primary diagnosis) 2. Metastasis to liver (HCC) - ICD9: 197.7, ICD10: C78.7 3. Peritoneal carcinomatosis (HCC) - ICD9: 197.6, 199.1, ICD10: C78.6, C80.1 4. Drug rash - ICD9: 693.0, ICD10: L27.0 5. Dehydration - ICD9: 276.51, ICD10: E86.0 - CXR pending. - Reviewed CBC with pt. - Stop zofran. Trial phenergan. - Rx phenergan. - NS 1 Liter and phenergan today. See [place] orders. - Follow up as scheduled for CT's. - Pt. aware to call office with any questions/concerns. The patient indicates understanding of these issues and agrees with the plan. Tatiana Cartagena APRN.STRUCTURAL WORKER [place] CBC Collected: 06/17/2018 Status: F Source: [place] 1:15 PM [facility] REPOSITORY TYPE CODE TESTS RESULT OUT OF REFERENCE UNITS RANGE LAB WWBC 3.70-11.00 k/uL [place] WBC 3.73 LAB WRBC 4.20-6.00 m/uL Low [place] RBC 3.56 LAB WHGB 13.0-17.0 g/dL Low [place] Hemoglobin 10.8 LAB WHCT 39.0-51.0 % Low [place] Hematocrit 32.3 LAB WMCV 80.0-100.0 fL [place] MCV 90.7 LAB WMCH 26.0-34.0 pg [place] MCH 30.3 LAB WMCHC 30.5-36.0 g/dL [place] MCHC 33.4 LAB WRDW 11.5-15.0 % [place] RDW 14.6 LAB WPLT 150-400 k/uL Low [place] Platelet Cnt 137 LAB WMPV 9.0-12.7 fL [place] MPV 9.8 Result Comment: Test performed at: [facility] [place] [facility], [address] [place] [address] Rd[address] [place] [address]. BASIC METABOLIC PANL Collected: 06/17/2018 Status: F Source: [place] 1:15 PM [facility] REPOSITORY TYPE CODE TESTS RESULT OUT OF REFERENCE UNITS RANGE LAB GLU 74-99 mg/dL Glucose High 144 LAB BUN 9-24 mg/dL BUN 16 LAB CRET 0.73-1.22 mg/dL Creatinine 1.04 LAB NA 136-144 mmol/L Sodium 138 LAB K 3.7-5.1 mmol/L Low Potassium 3.3 LAB CL 97-105 mmol/L Chloride High 109 LAB CO2 22-30 mmol/L Low CO2 20 LAB AGAP 9-18 mmol/L Anion Gap 9 LAB CA 8.5-10.2 mg/dL Calcium, Total 8.8 LAB GFRAA eGFR- >60 Amer. LAB GFRNAA . eGFR-All Other Races >60 Result Comment: eGFR (Estimated GFR) Units of measure: mL/min/1.73 meters squared eGFR is derived from the reexpressed MDRD Study equation using the following parameters: serum creatinine, age, gender and race. The creatinine assay has been calibrated to be traceable to IDMS. An eGFR <60 mL/min/1.73m2 for >3 months is consistent with chronic kidney disease. Refer to KDOQI guidelines for clinical interpretation. In patients with unstable renal function, e.g. those with acute kidney injury, the eGFR may not accurately reflect actual GFR. PROGRESS Observed: 06/17/2018 Status: COMPLETED Source: [place] 1:00 PM [facility] REPOSITORY HNO ID: [id number] Author: Tawnya (Rt) Danelle Magana Service: (none) Author Type: Deburring And Tooling Machine Operator Type: Progress Notes Filed: 06/17/2018 1:00 PM Note Text: Radiology Service Progress Note PATIENT NAME: Becca Magana DATE OF SERVICE: June 17, 2018 TIME: 1:00 PM PATIENT IDENTITY VERIFICATION COMPLETED USING TWO (2) METHODS: Patient confirmed name verbally and Date of . PATIENT GENDER DATA: Male PATIENT RELEVANT IMPLANT DATA REVIEWED: Not Applicable RADIOLOGY DEPARTMENT: General X-ray: Exam(s) Completed: Chest X-Ray PERIPHERAL IV DATA: Not applicable SIGNED BY: RT Zee June 17, 2018 1:00 PM XR CHEST 2V FRONTAL/LAT Observed: 06/17/2018 Status: F Source: [place] 12:59 PM [facility] REPOSITORY * * *Final Report* * * DATE OF EXAM: Jun 17 2018 12:59PM [id number] [id number] - XR CHEST 2V FRONTAL/LAT / PROCEDURE REASON: multiple diagnoses * * * * Physician Interpretation * * * * EXAMINATION: CHEST RADIOGRAPH (2 VIEW FRONTAL and LATERAL) CLINICAL HISTORY: Malignant neoplasm of sigmoid colon (HCC) Metastasis to liver (HCC) MQ: XC2_5 Comparison: 04/05/2018 RESULT: Lines, tubes, and devices: Left central venous catheter tip overlies the distal superior vena cava. Lungs and pleura: Lung woodruff are clear. No pleural fluid or pneumothorax is seen. Cardiomediastinal silhouette: Normal cardiomediastinal silhouette. IMPRESSION: No acute radiographic abnormality. Dyeing Machine Feeder: LALY Transcribe Date/Time: Jun 17 2018 1:56P Dictated by : RANDALL MAXWELL MD This examination was interpreted and the report reviewed and electronically signed by: RANDALL MAXWELL MD on Jun 17 2018 1:57PM EST [id number] PROGRESS Observed: 06/03/2018 Status: COMPLETED Source: [place] 9:38 AM [facility] REPOSITORY HNO ID: [id number] Author: Tatiana Cartagena Service: (none) Author Type: Nurse Practitioner Type: Progress Notes Filed: 06/04/2018 8:24 AM Note Text: Chief Complaint Patient presents with: Established Patient HPI: Becca Magana is a 62 year old male who presents here today for evaluation for treatment on Sun. Per Dr. Stone's previous note: H/o abdominal pain around June 2014. His symptoms progressively worsened throughout the spring. He also began losing weight in the spring and this culminated in a hospitalization for what was thought to be diverticulitis in December 2014. He underwent a CT scan which was thought to demonstrated a left lower quadrant abscess. The drain was placed and he was treated with antibiotic treatment. Pain flared and a repeat CT scan on 01/24/15 demonstrated marked inflammatory phlegmonous changes of the proximal sigmoid colon. He therefore underwent a colonoscopy and sigmoid colon resection with lymph node dissection on 01/29/2015. The sigmoid colon was noted to be adherent to the anterior abdominal wall and small bowel. The final pathology demonstrated an invasive moderately differentiated adenocarcinoma, tumor extension through the colonic wall and involving the muscularis propria of the small bowel. The proximal margin resection had a small focus of tumor present at the serosal surface. None of 25 lymph nodes were involved. The patient went on to receive 12 cycles FOLFOX which she finished on 09/13/2015. ? Surveillance CT scan the abdomen and pelvis on January 06, 2016 demonstrated a small omental nodules. He was treated with 4 cycles of FOLFIRI and then underwent exploratory laparotomy, excision of peritoneal/liver/small bowel/mesenteric nodules, heated intraperitoneal chemotherapy (HIPEC) administration for 100 minutes, cystoscopy with bilateral ureteral stent placement on 05/22/2016. ? Pathology: 1. Small bowel peritoneal nodules, excision (A) - Organizing fibrous adhesions. - No evidence of malignancy. 2. Left liver nodule, biopsy (B) - Adenocarcinoma in liver, consistent with colonic primary. 3. Omentum, excision (C) - Infiltrating adenocarcinoma, consistent with colonic primary. 4. Left upper quadrant abdominal wall, biopsy (D) - Infiltrating adenocarcinoma, consistent with colonic primary. 5. Pelvic nodule and omentum, excision (E) - Infiltrating adenocarcinoma, consistent with colonic primary. - One lymph node, negative for malignancy (0/1). 6. Ileal nodule, excision (F) - Infiltrating adenocarcinoma, consistent with colonic primary. ? In end of July/first week of August this year he underwent repeat staging workup (CT and PET) which unfortunately showed liver metastasis and intra-abdominal metastases. ? He recently started back on chemotherapy with FOLFIRI and cetuximab. He's had 2 cycles to date. ? Previous therapy: 1) FOLFOX ?12 cycles completed 09/13/2015. 2) FOLFIRI x4 cycles. 3) Exploratory lap 04/2016 with HIPEC (mitomycin). ? Current therapy: 1) FOLFIRI (with Vectibix--side effects permitting). ? I took a probiotic in Sunday morning and I've had pain and diarrhea. 3 episodes of diarrhea yesterday. Appetite:I can tell that I need to eat in the mornings to take my pills then I eat again after that. I don't feel hungry anymore like I used to. Energy level:It's bad. Denies fevers. Mouth:denies sores, some cracking in the corners on my mouth. Resp:denies cough or sob Cardiac:denies chest pain/palpitations GI:R sided abd pain, +nausea third day after treatement it started and then it's just blaine there-when I eat it feels good.-takes zofran with relief, denies vomiting, bowels as above :denies dysuria/hematuria Extrem:denies pain elsewhere Neuro:neuropathy stable Skin:denies rashes, will get rash to forehead the weekend before treatment, lasts a few days Heme:denies bleeding The ROS is otherwise negative. Past medical history, appointments, medications, allergies reviewed. No changes. EXAM: BP 110/71 Pulse 90 Temp 36.9 ?C (98.4 ?F) (Temporal Artery) Wt 87.5 kg (193 lb) BMI 27.11 kg/m? APPEARANCE Well appearing, alert, in no acute distress, well-hydrated, well nourished. MOUTH no mucositis HEART RRR with normal S1 and S2, no murmurs LUNG clear to auscultation LYMPH NODES No cervical lymphadenopathy, No supraclavicular lymphadenopathy and No axillary lymphadenopathy. ABDOMEN bowel sounds normoactive, no bruits, soft, non-tender, non-distended, firm tumor above/R lateral umbilicus EXTREMITIES No edema NEURO Awake, alert and oriented x 3, Normal gait and No involuntary motions. SKIN 2 small bruises to abd at waist/pant line LABS: Component Latest Ref Rng AND Units 04/23/2018 05/20/2018 WBC, [place] 3.70 - 11.00 k/uL 5.57 5.12 RBC, [place] 4.20 - 6.00 m/uL 3.57 (L) 3.30 (L) Hemoglobin, [place] 13.0 - 17.0 g/dL 10.8 (L) 10.0 (L) Hematocrit, [place] 39.0 - 51.0 % 33.2 (L) 30.9 (L) MCV, [place] 80.0 - 100.0 fL 93.0 93.6 MCH, [place] 26.0 - 34.0 pg 30.3 30.3 MCHC, [place] 30.5 - 36.0 g/dL 32.5 32.4 RDW, [place] 11.5 - 15.0 % 16.9 (H) 15.1 (H) Platelet Cnt, [place] 150 - 400 k/uL 148 (L) 189 MPV, [place] 9.0 - 12.7 fL 9.8 9.1 Absol Gran Count 1.45 - 7.50 k/uL 3.44 2.65 BMP/Mag/CEA/Hep. func.: Pending ASSESSMENT/PLAN: 1. Malignant neoplasm of sigmoid colon (HCC) - ICD9: 153.3, ICD10: C18.7 (primary diagnosis) 2. Metastasis to liver (HCC) - ICD9: 197.7, ICD10: C78.7 3. Peritoneal carcinomatosis (HCC) - ICD9: 197.6, 199.1, ICD10: C78.6, C80.1 4. Drug rash - ICD9: 693.0, ICD10: L27.0 - Tolerating vectibix fairly well. +nausea-taking zofran with relief. Rash to forehead persists with each treatment-usually resolved by next treatment. - Continue xarelto-monitor bruises (No bleeding). - Reviewed CBC with pt. Other labs pending. - CT abd/pelvis first week of Jun. - Proceed as scheduled for treatment on Sun. - Follow up as scheduled. - Pt. aware to call office with any questions/concerns. The patient indicates understanding of these issues and agrees with the plan. Discussed case with Dr. Stone who agrees with treatment plan. Tatiana Cartagena APRN.STRUCTURAL WORKER CEA Collected: 06/03/2018 Status: F Source: [place] 9:35 AM [facility] REPOSITORY TYPE CODE TESTS RESULT OUT OF RANGE REFERENCE UNITS LAB CEA 0.0-2.9 ng/mL High CEA 11.8 Result Comment: Test analyzed by the [employer] DxI method. Performed By: #### CEA #### [facility] [address] [place], [place] [address] BASIC METABOLIC PANL Collected: 06/03/2018 Status: F Source: [place] 9:32 AM [facility] REPOSITORY TYPE CODE TESTS RESULT OUT OF REFERENCE UNITS RANGE LAB GLU 74-99 mg/dL Glucose High 105 LAB BUN 7-21 mg/dL BUN 14 LAB CRET 0.73-1.22 mg/dL Creatinine 0.88 LAB NA 136-144 mmol/L Sodium 142 LAB K 3.7-5.1 mmol/L Low Potassium 3.6 LAB CL 97-105 mmol/L Chloride High 111 LAB CO2 22-30 mmol/L CO2 23 LAB AGAP 9-18 mmol/L Low Anion Gap 8 LAB CA 8.5-10.2 mg/dL Calcium, Total 9.2 LAB GFRAA eGFR- >60 Amer. LAB GFRNAA . eGFR-All Other Races >60 Result Comment: eGFR (Estimated GFR) Units of measure: mL/min/1.73 meters squared eGFR is derived from the reexpressed MDRD Study equation using the following parameters: serum creatinine, age, gender and race. The creatinine assay has been calibrated to be traceable to IDMS. An eGFR <60 mL/min/1.73m2 for >3 months is consistent with chronic kidney disease. Refer to KDOQI guidelines for clinical interpretation. In patients with unstable renal function, e.g. those with acute kidney injury, the eGFR may not accurately reflect actual GFR. HEPATIC FUNCTN PANEL Collected: 06/03/2018 Status: F Source: [place] 9:32 AM [facility] REPOSITORY TYPE CODE TESTS RESULT OUT OF REFERENCE UNITS RANGE LAB ALB 3.9-4.9 g/dL Low Albumin 3.7 LAB TBIL 0.2-1.3 mg/dL Bilirubin, Total 0.2 LAB CBIL <0.2 mg/dL Bilirubin,Conjuga <0.2 [place] LAB ALKP 38-113 U/L Alkaline Phosphatase 70 LAB AST 14-40 U/L Low AST 12 LAB ALT 10-54 U/L ALT 15 LAB TP 6.3-8.0 g/dL Low Protein, Total 5.5 MAGNESIUM Collected: 06/03/2018 Status: F Source: [place] 9:32 AM [facility] REPOSITORY TYPE CODE TESTS RESULT OUT OF REFERENCE UNITS RANGE LAB MG 1.7-2.3 mg/dL Low Magnesium 1.3 [place] ABS GR + CBC Collected: 06/03/2018 Status: F Source: [place] 9:31 AM [facility] REPOSITORY TYPE CODE TESTS RESULT OUT OF REFERENCE UNITS RANGE LAB WWBC 3.70-11.00 k/uL Low [place] WBC 3.54 LAB WRBC 4.20-6.00 m/uL Low [place] RBC 3.10 LAB WHGB 13.0-17.0 g/dL Low [place] Hemoglobin 9.5 LAB WHCT 39.0-51.0 % Low [place] Hematocrit 29.1 LAB WMCV 80.0-100.0 fL [place] MCV 93.9 LAB WMCH 26.0-34.0 pg [place] MCH 30.6 LAB WMCHC 30.5-36.0 g/dL [place] MCHC 32.6 LAB WRDW 11.5-15.0 % [place] RDW 14.9 LAB WPLT 150-400 k/uL [place] Platelet Cnt 173 LAB WMPV 9.0-12.7 fL [place] MPV 9.0 Result Comment: Test performed at: [facility] [place] [address] [place], [place] [address] [address]. LAB ABGRAN 1.45-7.50 k/uL Absol Gran 2.04 Count CNOVSP Observed: 06/03/2018 Status: COMPLETED Source: [place] 9:30 AM [facility] REPOSITORY Visit (SP) Office ([place]) BECCA MAGANA ([id number]) 1955 M Date Time Provider Department 06/03/18 9:30 AM TATIANA CARTAGENA During your visit today, we recorded the following information about you: Temperature Pulse Blood pressure Weight 98.4 degrees 90/minute 110/71 87.5 kg Tatiana Cartagena APRN.CNP 06/04/2018 8:24 AM Signed Chief Complaint Patient presents with: Established Patient HPI: Becca Magana is a 62 year old male who presents here today for evaluation for treatment on Sun. Per Dr. Stone's previous note: H/o abdominal pain around June 2014. His symptoms progressively worsened throughout the spring. He also began losing weight in the spring and this culminated in a hospitalization for what was thought to be diverticulitis in December 2014. He underwent a CT scan which was thought to demonstrated a left lower quadrant abscess. The drain was placed and he was treated with antibiotic treatment. Pain flared and a repeat CT scan on 01/24/15 demonstrated marked inflammatory phlegmonous changes of the proximal sigmoid colon. He therefore underwent a colonoscopy and sigmoid colon resection with lymph node dissection on 01/29/2015. The sigmoid colon was noted to be adherent to the anterior abdominal wall and small bowel. The final pathology demonstrated an invasive moderately differentiated adenocarcinoma, tumor extension through the colonic wall and involving the muscularis propria of the small bowel. The proximal margin resection had a small focus of tumor present at the serosal surface. None of 25 lymph nodes were involved. The patient went on to receive 12 cycles FOLFOX which she finished on 09/13/2015. ? Surveillance CT scan the abdomen and pelvis on January 06, 2016 demonstrated a small omental nodules. He was treated with 4 cycles of FOLFIRI and then underwent exploratory laparotomy, excision of peritoneal/liver/small bowel/mesenteric nodules, heated intraperitoneal chemotherapy (HIPEC) administration for 100 minutes, cystoscopy with bilateral ureteral stent placement on 05/22/2016. ? Pathology: 1. Small bowel peritoneal nodules, excision (A) - Organizing fibrous adhesions. - No evidence of malignancy. 2. Left liver nodule, biopsy (B) - Adenocarcinoma in liver, consistent with colonic primary. 3. Omentum, excision (C) - Infiltrating adenocarcinoma, consistent with colonic primary. 4. Left upper quadrant abdominal wall, biopsy (D) - Infiltrating adenocarcinoma, consistent with colonic primary. 5. Pelvic nodule and omentum, excision (E) - Infiltrating adenocarcinoma, consistent with colonic primary. - One lymph node, negative for malignancy (0/1). 6. Ileal nodule, excision (F) - Infiltrating adenocarcinoma, consistent with colonic primary. ? In end of July/first week of August this year he underwent repeat staging workup (CT and PET) which unfortunately showed liver metastasis and intra-abdominal metastases. ? He recently started back on chemotherapy with FOLFIRI and cetuximab. He's had 2 cycles to date. ? Previous therapy: 1) FOLFOX ?12 cycles completed 09/13/2015. 2) FOLFIRI x4 cycles. 3) Exploratory lap 04/2016 with HIPEC (mitomycin). ? Current therapy: 1) FOLFIRI (with Vectibix--side effects permitting). ? I took a probiotic in Sunday morning and I've had pain and diarrhea. 3 episodes of diarrhea yesterday. Appetite:I can tell that I need to eat in the mornings to take my pills then I eat again after that. I don't feel hungry anymore like I used to. Energy level:It's bad. Denies fevers. Mouth:denies sores, some cracking in the corners on my mouth. Resp:denies cough or sob Cardiac:denies chest pain/palpitations GI:R sided abd pain, +nausea third day after treatement it started and then it's just blaine there-when I eat it feels good.-takes zofran with relief, denies vomiting, bowels as above :denies dysuria/hematuria Extrem:denies pain elsewhere Neuro:neuropathy stable Skin:denies rashes, will get rash to forehead the weekend before treatment, lasts a few days Heme:denies bleeding The ROS is otherwise negative. Past medical history, appointments, medications, allergies reviewed. No changes. EXAM: BP 110/71 Pulse 90 Temp 36.9 ?C (98.4 ?F) (Temporal Artery) Wt 87.5 kg (193 lb) BMI 27.11 kg/m? APPEARANCE Well appearing, alert, in no acute distress, well- hydrated, well nourished. MOUTH no mucositis HEART RRR with normal S1 and S2, no murmurs LUNG clear to auscultation LYMPH NODES No cervical lymphadenopathy, No supraclavicular lymphadenopathy and No axillary lymphadenopathy. ABDOMEN bowel sounds normoactive, no bruits, soft, non-tender, non-distended, firm tumor above/R lateral umbilicus EXTREMITIES No edema NEURO Awake, alert and oriented x 3, Normal gait and No involuntary motions. SKIN 2 small bruises to abd at waist/pant line LABS: Component Latest Ref Rng AND Units 04/23/2018 05/20/2018 WBC, [place] 3.70 - 11.00 k/uL 5.57 5.12 RBC, [place] 4.20 - 6.00 m/uL 3.57 (L) 3.30 (L) Hemoglobin, [place] 13.0 - 17.0 g/dL 10.8 (L) 10.0 (L) Hematocrit, [place] 39.0 - 51.0 % 33.2 (L) 30.9 (L) MCV, [place] 80.0 - 100.0 fL 93.0 93.6 MCH, [place] 26.0 - 34.0 pg 30.3 30.3 MCHC, [place] 30.5 - 36.0 g/dL 32.5 32.4 RDW, [place] 11.5 - 15.0 % 16.9 (H) 15.1 (H) Platelet Cnt, [place] 150 - 400 k/uL 148 (L) 189 MPV, [place] 9.0 - 12.7 fL 9.8 9.1 Absol Gran Count 1.45 - 7.50 k/uL 3.44 2.65 BMP/Mag/CEA/Hep. func.: Pending ASSESSMENT/PLAN: 1. Malignant neoplasm of sigmoid colon (HCC) - ICD9: 153.3, ICD10: C18.7 (primary diagnosis) 2. Metastasis to liver (HCC) - ICD9: 197.7, ICD10: C78.7 3. Peritoneal carcinomatosis (HCC) - ICD9: 197.6, 199.1, ICD10: C78.6, C80.1 4. Drug rash - ICD9: 693.0, ICD10: L27.0 - Tolerating vectibix fairly well. +nausea-taking zofran with relief. Rash to forehead persists with each treatment-usually resolved by next treatment. - Continue xarelto-monitor bruises (No bleeding). - Reviewed CBC with pt. Other labs pending. - CT abd/pelvis first week of Jun. - Proceed as scheduled for treatment on Sun. - Follow up as scheduled. - Pt. aware to call office with any questions/concerns. The patient indicates understanding of these issues and agrees with the plan. Discussed case with Dr. Stone who agrees with treatment plan. GEORGE Dyer APRN.CNP 06/04/2018 10:37 AM Signed Addended by: TATIANA CARATGENA CNP on: 06/04/2018 10:37 AM Modules accepted: Orders Referring Provider: GERALDO STONE [[id number]] Allergies As of Date: 06/03/2018 (No Known Allergies) Date Reviewed: 06/03/2018 Reviewed by: Tatiana Cartagena - Fully Assessed Reason for Visit: Established Patient [175] Primary Visit Diagnosis:Malignant neoplasm of sigmoid colon (HCC) [C18.7] Other Visit Diagnoses:Metastasis to liver (HCC) [C78.7] Peritoneal carcinomatosis (HCC) [C78.6, C80.1] Drug rash [L27.0] Order(s):CT ABD/PEL W IVCON [[id number]] Order #: [id number] FUTURE iv contrast (will be provided with radiology test)CT Chest ABD/PEL-Inject, intravenously, once for 1 dose.No IV access, insert saline lock prior to the beginning of sedation, infusion, injection of imaging exam. Discontinue saline lock post exam. If Pt. has a central line or IVAD, may access for administration according to line specific nursing protocol. Once exam is complete flush line and de-access according to line specific nursing protocol in the CT contrast administration guidelines link.Disp: 1 EachRfl: 0 enteric contrast (will be provided with radiology test)For CT CHESTABD/PEL W IVCON Routine order Administer, As Directed One Time Only, via Oral, Rectal, both Oral and Rectal, Enteric Tube, Stoma or Indwelling Catheter, Enteric Contrast as designated per enteric contrast guidelinesDisp: 1 EachRfl: 0 Follow-up and Disposition History Recorded Prescriptions as of 06/03/2018 Sig: MINOCYCLINE 100 MG CAPSULE Take 100 mg by mouth twice da* XARELTO 20 MG TABLET TAKE ONE TABLET BY MOUTH ROBERTA* POTASSIUM CHLORIDE ER 20 MEQ * Take 1 tablet by mouth three * ONDANSETRON HCL 8 MG TABLET Take 1 tablet by mouth every * DEXAMETHASONE 4 MG TABLET Take 1 tablet by mouth twice * IV CONTRAST (RADIOLOGY PROCED* CT Chest ABD/PEL-Inject, intr* ENTERIC CONTRAST (RADIOLOGY P* For CT CHESTABD/PEL W IVCON R* Problem List As Of Date 06/03/2018 Noted Resolved Colon cancer (HCC) [C18.9] 08/21/2017 Peritoneal carcinomatosis (HCC) [C78.6, C80.1] INVALID FOR* Metastasis to liver (HCC) [C78.7] INVALID FOR* More... Drug rash [L27.0] INVALID FOR* Malignant neoplasm of sigmoid colon (HCC) [C18.*INVALID FOR* Chronic saddle pulmonary embolism without acute*INVALID FOR* Encounter Status:Closed by TATIANA CARTAGENA CNP on 06/04/18 PROGRESS Observed: 05/20/2018 Status: COMPLETED Source: [place] 3:24 PM [facility] REPOSITORY HNO ID: [id number] Author: Geraldo Stone Service: (none) Author Type: Physician Type: Progress Notes Filed: 05/20/2018 3:45 PM Note Text: Diagnosis: 1) Metastatic recurrence of stage III colon cancer. MSI stable. BRAF - A sequence change: c.1781A>G (p.Brc286Hyu) was detected at approximately 48% allele proportion. [Reference sequence: (NM_[id number])]. KRAS - No variant detected [Reference?sequence: ([id number]_[id number])]. NRAS - No variant detected [Reference sequence: (NM_[id number])]. Patient referred by ongoing management of metastatic colon cancer. HPI: The patient is a 62 yo male who developed abdominal pain around June 2014. His symptoms progressively worsened throughout the spring. He also began losing weight in the spring and this culminated in a hospitalization for what was thought to be diverticulitis in December 2014. He underwent a CT scan which was thought to demonstrated a left lower quadrant abscess. The drain was placed and he was treated with antibiotic treatment. Pain flared and a repeat CT scan on 01/24/15 demonstrated marked inflammatory phlegmonous changes of the proximal sigmoid colon. He therefore underwent a colonoscopy and sigmoid colon resection with lymph node dissection on 01/29/2015. The sigmoid colon was noted to be adherent to the anterior abdominal wall and small bowel. The final pathology demonstrated an invasive moderately differentiated adenocarcinoma, tumor extension through the colonic wall and involving the muscularis propria of the small bowel. The proximal margin resection had a small focus of tumor present at the serosal surface. None of 25 lymph nodes were involved. The patient went on to receive 12 cycles FOLFOX which she finished on 09/13/2015. Surveillance CT scan the abdomen and pelvis on January 06, 2016 demonstrated a small omental nodules. He was treated with 4 cycles of FOLFIRI and then underwent exploratory laparotomy, excision of peritoneal/liver/small bowel/mesenteric nodules, heated intraperitoneal chemotherapy (HIPEC) administration for 100 minutes, cystoscopy with bilateral ureteral stent placement on 05/22/2016. Pathology: 1. Small bowel peritoneal nodules, excision (A) - Organizing fibrous adhesions. - No evidence of malignancy. 2. Left liver nodule, biopsy (B) - Adenocarcinoma in liver, consistent with colonic primary. 3. Omentum, excision (C) - Infiltrating adenocarcinoma, consistent with colonic primary. 4. Left upper quadrant abdominal wall, biopsy (D) - Infiltrating adenocarcinoma, consistent with colonic primary. 5. Pelvic nodule and omentum, excision (E) - Infiltrating adenocarcinoma, consistent with colonic primary. - One lymph node, negative for malignancy (0/1). 6. Ileal nodule, excision (F) - Infiltrating adenocarcinoma, consistent with colonic primary. In end of July/first week of August this year he underwent repeat staging workup (CT and PET) which unfortunately showed liver metastasis and intra-abdominal metastases. He recently started back on chemotherapy with FOLFIRI and cetuximab. He's had 2 cycles to date. Previous therapy: 1) FOLFOX ?12 cycles completed 09/13/2015. 2) FOLFIRI x4 cycles. 3) Exploratory lap 04/2016 with HIPEC (mitomycin). Current therapy: 1) FOLFIRI (with Vectibix--side effects permitting). Interim history: He was admitted to [facility] for 3 days for small bowel obstruction. He was made nothing by mouth and treated with IV fluids. His symptoms resolved. He blames the episode on going to a wedding in [place] and having too much to eat. His symptoms started shortly thereafter. He's feeling better at this point. Abdominal tenderness is back to baseline. No nausea or vomiting. Bowels are moving regularly. No episodes of jaundice. Tolerating Xarelto well with no unusual bleeding or unexplained bruising-verified. Symptoms from neuropathy remain stable-verified. PMH, medications and allergies as below personally reviewed by me today. Any changes documented in appropriate section. ROS: Constitutional: Denies episodes night sweats. Neuro: Denies HIDALGO, vertigo, dizziness and imbalance. HEENT: No recent change in voice, vision or hearing. Resp: Denies cough, wheeze and hemoptysis. CVS: Denies exertional chest pain, PND, orthopnea and LE edema. GI: Denies dysgeusia. : Denies dysuria or gross hematuria. No symptoms of bladder outlet obstruction. Endo: Denies hot flashes. Denies polyuria and polydipsia. Denies heat and cold intolerance. Musculoskeletal: Denies bone, back, joint and muscular pain. Derm: Denies jaundice and diffuse pruritis. Heme: See above. Psych: Normal mood. PHYSICAL EXAM: Vitals: Blood pressure 117/82, pulse 99, temperature 36.9 ?C (98.5 ?F), weight 87.1 kg (192 lb). Well-appearing and in no acute distress. EYES: Sclerae are anicteric bilaterally. ENT: Oral mucosa is unremarkable. There is no sign of thrush or mucositis. NECK: Supple. No enlargement of thyroid. LYMPHATIC: There is no palpable cervical, supraclavicular, axillary or inguinal adenopathy. RESPIRATORY: Inspiratory breath sounds are of normal intensity in all woodruff. No rales, wheezes or rhonchi. Expiratory phase is normal. CARDIOVASCULAR: Rhythm is regular. Normal intensity S1/S2. There is no gallop or murmur. ABDOMEN: The abdomen is nondistended. No organomegaly. The periumbilical tumor is firmer but not larger. Extremities: No swelling or edema. SKIN: No rash presently. 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 No focal motor weakness. MUSCULOSKELETAL: NNo muscle wasting. ASSESSMENT/PLAN: (C18.9) Malignant neoplasm of colon, unspecified part of colon (HCC) (primary encounter diagnosis) (C78.6, C80.1) Peritoneal carcinomatosis (HCC) (C78.7) Metastasis to liver (HCC) (L27.0) Drug rash Assessment: -KPS is 80-90%. -MMR proficient. [facility] sent previous testing that had been done at the time of his surgery 02/2016. Please see scanned document. -Tolerating treatment with current dose of Vectibix fairly well. He is at low dose and tends to get cumulative toxicity of rash and diarrhea. -Symptoms from recent partial small bowel traction have resolved. I reviewed the CT scan images of the abdomen and pelvis personally with him. Stable disease. -Potentially could consider palliative radiation to the abdominal wall tumor in the future if necessary but we would probably use this as a last resort. -He may be a very good candidate for regorafenib when has chemotherapy failure. Plan: -Resume chemotherapy Sunday. -Olanzapine 5 mg at at bedtime. Zofran 8 mg every 6-8 hours throughout the day. -CT scan after 3 more cycles. -Continue potassium supplement. 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 -No unusual bleeding episodes. Plan: -Continue Xarelto. Geraldo Stone DO CNOVSP Observed: 05/20/2018 Status: COMPLETED Source: [place] 3:10 PM [facility] REPOSITORY Visit (SP) Office ([place]) BECCA MAGANA ([id number]) 1955 M Date Time Provider Department 05/20/18 3:10 PM GERALDO STONE During your visit today, we recorded the following information about you: Temperature Pulse Blood pressure Weight 98.5 degrees 99/minute 117/82 87.1 kg Azeb Mann LPN, [employer] 05/20/2018 3:29 PM Signed Est pt, discuss recent lab results, tx Sunday Azeb Mann, [employer] Geraldo Angelia Stone, DO 05/20/2018 3:45 PM Signed Diagnosis: 1) Metastatic recurrence of stage III colon cancer. MSI stable. BRAF - A sequence change: c.1781A>G (p.Bfl447Dxa) was detected at approximately 48% allele proportion. [Reference sequence: (NM_004333.4)]. KRAS - No variant detected [Reference?sequence: (NM_004985.4)]. NRAS - No variant detected [Reference sequence: (NM_002524.4)]. Patient referred by ongoing management of metastatic colon cancer. HPI: The patient is a 62 yo male who developed abdominal pain around June 2014. His symptoms progressively worsened throughout the spring. He also began losing weight in the spring and this culminated in a hospitalization for what was thought to be diverticulitis in December 2014. He underwent a CT scan which was thought to demonstrated a left lower quadrant abscess. The drain was placed and he was treated with antibiotic treatment. Pain flared and a repeat CT scan on 01/24/15 demonstrated marked inflammatory phlegmonous changes of the proximal sigmoid colon. He therefore underwent a colonoscopy and sigmoid colon resection with lymph node dissection on 01/29/2015. The sigmoid colon was noted to be adherent to the anterior abdominal wall and small bowel. The final pathology demonstrated an invasive moderately differentiated adenocarcinoma, tumor extension through the colonic wall and involving the muscularis propria of the small bowel. The proximal margin resection had a small focus of tumor present at the serosal surface. None of 25 lymph nodes were involved. The patient went on to receive 12 cycles FOLFOX which she finished on 09/13/2015. Surveillance CT scan the abdomen and pelvis on January 06, 2016 demonstrated a small omental nodules. He was treated with 4 cycles of FOLFIRI and then underwent exploratory laparotomy, excision of peritoneal/liver/small bowel/mesenteric nodules, heated intraperitoneal chemotherapy (HIPEC) administration for 100 minutes, cystoscopy with bilateral ureteral stent placement on 05/22/2016. Pathology: 1. Small bowel peritoneal nodules, excision (A) - Organizing fibrous adhesions. - No evidence of malignancy. 2. Left liver nodule, biopsy (B) - Adenocarcinoma in liver, consistent with colonic primary. 3. Omentum, excision (C) - Infiltrating adenocarcinoma, consistent with colonic primary. 4. Left upper quadrant abdominal wall, biopsy (D) - Infiltrating adenocarcinoma, consistent with colonic primary. 5. Pelvic nodule and omentum, excision (E) - Infiltrating adenocarcinoma, consistent with colonic primary. - One lymph node, negative for malignancy (0/1). 6. Ileal nodule, excision (F) - Infiltrating adenocarcinoma, consistent with colonic primary. In end of July/first week of August this year he underwent repeat staging workup (CT and PET) which unfortunately showed liver metastasis and intra-abdominal metastases. He recently started back on chemotherapy with FOLFIRI and cetuximab. He's had 2 cycles to date. Previous therapy: 1) FOLFOX ?12 cycles completed 09/13/2015. 2) FOLFIRI x4 cycles. 3) Exploratory lap 04/2016 with HIPEC (mitomycin). Current therapy: 1) FOLFIRI (with Vectibix--side effects permitting). Interim history: He was admitted to [facility] for 3 days for small bowel obstruction. He was made nothing by mouth and treated with IV fluids. His symptoms resolved. He blames the episode on going to a wedding in [place] and having too much to eat. His symptoms started shortly thereafter. He's feeling better at this point. Abdominal tenderness is back to baseline. No nausea or vomiting. Bowels are moving regularly. No episodes of jaundice. Tolerating Xarelto well with no unusual bleeding or unexplained bruising-verified. Symptoms from neuropathy remain stable-verified. PMH, medications and allergies as below personally reviewed by me today. Any changes documented in appropriate section. ROS: Constitutional: Denies episodes night sweats. Neuro: Denies HIDALGO, vertigo, dizziness and imbalance. HEENT: No recent change in voice, vision or hearing. Resp: Denies cough, wheeze and hemoptysis. CVS: Denies exertional chest pain, PND, orthopnea and LE edema. GI: Denies dysgeusia. : Denies dysuria or gross hematuria. No symptoms of bladder outlet obstruction. Endo: Denies hot flashes. Denies polyuria and polydipsia. Denies heat and cold intolerance. Musculoskeletal: Denies bone, back, joint and muscular pain. Derm: Denies jaundice and diffuse pruritis. Heme: See above. Psych: Normal mood. PHYSICAL EXAM: Vitals: Blood pressure 117/82, pulse 99, temperature 36.9 ?C (98.5 ?F), weight 87.1 kg (192 lb). Well-appearing and in no acute distress. EYES: Sclerae are anicteric bilaterally. ENT: Oral mucosa is unremarkable. There is no sign of thrush or mucositis. NECK: Supple. No enlargement of thyroid. LYMPHATIC: There is no palpable cervical, supraclavicular, axillary or inguinal adenopathy. RESPIRATORY: Inspiratory breath sounds are of normal intensity in all woodruff. No rales, wheezes or rhonchi. Expiratory phase is normal. CARDIOVASCULAR: Rhythm is regular. Normal intensity S1/S2. There is no gallop or murmur. ABDOMEN: The abdomen is nondistended. No organomegaly. The periumbilical tumor is firmer but not larger. Extremities: No swelling or edema. SKIN: No rash presently. 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 No focal motor weakness. MUSCULOSKELETAL: NNo muscle wasting. ASSESSMENT/PLAN: (C18.9) Malignant neoplasm of colon, unspecified part of colon (HCC) (primary encounter diagnosis) (C78.6, C80.1) Peritoneal carcinomatosis (HCC) (C78.7) Metastasis to liver (HCC) (L27.0) Drug rash Assessment: -KPS is 80-90%. -MMR proficient. [facility] sent previous testing that had been done at the time of his surgery 02/2016. Please see scanned document. -Tolerating treatment with current dose of Vectibix fairly well. He is at low dose and tends to get cumulative toxicity of rash and diarrhea. -Symptoms from recent partial small bowel traction have resolved. I reviewed the CT scan images of the abdomen and pelvis personally with him. Stable disease. -Potentially could consider palliative radiation to the abdominal wall tumor in the future if necessary but we would probably use this as a last resort. -He may be a very good candidate for regorafenib when has chemotherapy failure. Plan: -Resume chemotherapy Sunday. -Olanzapine 5 mg at at bedtime. Zofran 8 mg every 6-8 hours throughout the day. -CT scan after 3 more cycles. -Continue potassium supplement. 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 -No unusual bleeding episodes. Plan: -Continue Xarelto. Geraldo Stone DO Referring Provider: GERALDO STONE [[id number]] Allergies As of Date: 05/20/2018 (No Known Allergies) Date Reviewed: 05/20/2018 Reviewed by: Azeb Mann LPN - Fully Assessed Reason for Visit: Established Patient [175] Primary Visit Diagnosis:Malignant neoplasm of sigmoid colon (HCC) [C18.7] Other Visit Diagnoses:Metastasis to liver (HCC) [C78.7] Peritoneal carcinomatosis (HCC) [C78.6, C80.1] Chronic saddle pulmonary embolism without acute cor pulmonale (HCC) [I26.92] Follow-up and Disposition History Recorded Prescriptions as of 05/20/2018 Sig: MINOCYCLINE 100 MG CAPSULE Take 100 mg by mouth twice da* XARELTO 20 MG TABLET TAKE ONE TABLET BY MOUTH ROBERTA* POTASSIUM CHLORIDE ER 20 MEQ * Take 1 tablet by mouth three * ONDANSETRON HCL 8 MG TABLET Take 1 tablet by mouth every * DEXAMETHASONE 4 MG TABLET Take 1 tablet by mouth twice * Problem List As Of Date 05/20/2018 Noted Resolved Colon cancer (HCC) [C18.9] 08/21/2017 Peritoneal carcinomatosis (HCC) [C78.6, C80.1] INVALID FOR* Metastasis to liver (HCC) [C78.7] INVALID FOR* More... Drug rash [L27.0] INVALID FOR* Malignant neoplasm of sigmoid colon (HCC) [C18.*INVALID FOR* Chronic saddle pulmonary embolism without acute*INVALID FOR* Visit Notes: >> Azeb Mann LPN SunMay 20, 2018 3:06 PM Status: Signed Est pt, discuss recent lab results, tx Sunday Azeb Mann LPN Encounter Status:Closed by GERALDO STONE DO on 05/20/18 CEA Collected: 05/20/2018 Status: F Source: [place] 3:07 PM [facility] REPOSITORY TYPE CODE TESTS RESULT OUT OF RANGE REFERENCE UNITS LAB CEA 0.0-2.9 ng/mL High CEA 9.4 Result Comment: Test analyzed by the Brandon DxI method. Performed By: #### CEA #### [facility] [id number] [place] [id number] BASIC METABOLIC PANL Collected: 05/20/2018 Status: F Source: [place] 3:06 PM [facility] REPOSITORY TYPE CODE TESTS RESULT OUT OF REFERENCE UNITS RANGE LAB GLU 74-99 mg/dL Glucose 77 LAB BUN 7-21 mg/dL BUN 15 LAB CRET 0.73-1.22 mg/dL Creatinine 0.90 LAB NA 136-144 mmol/L Sodium 140 LAB K 3.7-5.1 mmol/L Potassium 3.8 LAB CL 97-105 mmol/L Chloride High 108 LAB CO2 22-30 mmol/L CO2 22 LAB AGAP 9-18 mmol/L Anion Gap 10 LAB CA 8.5-10.2 mg/dL Calcium, Total 9.5 LAB GFRAA eGFR- >60 Amer. LAB GFRNAA . eGFR-All Other Races >60 Result Comment: eGFR (Estimated GFR) Units of measure: mL/min/1.73 meters squared eGFR is derived from the reexpressed MDRD Study equation using the following parameters: serum creatinine, age, gender and race. The creatinine assay has been calibrated to be traceable to IDMS. An eGFR <60 mL/min/1.73m2 for >3 months is consistent with chronic kidney disease. Refer to KDOQI guidelines for clinical interpretation. In patients with unstable renal function, e.g. those with acute kidney injury, the eGFR may not accurately reflect actual GFR. HEPATIC FUNCTN PANEL Collected: 05/20/2018 Status: F Source: [place] 3:06 PM [facility] REPOSITORY TYPE CODE TESTS RESULT OUT OF REFERENCE UNITS RANGE LAB ALB 3.9-4.9 g/dL Albumin 3.9 LAB TBIL 0.2-1.3 mg/dL Bilirubin, Total 0.3 LAB CBIL <0.2 mg/dL Bilirubin,Conjuga <0.2 [place] LAB ALKP 38-113 U/L Alkaline Phosphatase 89 LAB AST 14-40 U/L AST 16 LAB ALT 10-54 U/L ALT 17 LAB TP 6.3-8.0 g/dL Low Protein, Total 6.0 MAGNESIUM Collected: 05/20/2018 Status: F Source: [place] 3:06 PM [facility] REPOSITORY TYPE CODE TESTS RESULT OUT OF REFERENCE UNITS RANGE LAB MG 1.7-2.3 mg/dL Low Magnesium 1.5 ROLANDO ABS GR + CBC Collected: 05/20/2018 Status: F Source: [place] 3:05 PM [facility] REPOSITORY TYPE CODE TESTS RESULT OUT OF REFERENCE UNITS RANGE LAB WWBC 3.70-11.00 k/uL [place] WBC 5.12 LAB WRBC 4.20-6.00 m/uL Low [place] RBC 3.30 LAB WHGB 13.0-17.0 g/dL Low [place] Hemoglobin 10.0 LAB WHCT 39.0-51.0 % Low [place] Hematocrit 30.9 LAB WMCV 80.0-100.0 fL [place] MCV 93.6 LAB WMCH 26.0-34.0 pg [place] MCH 30.3 LAB WMCHC 30.5-36.0 g/dL [place] MCHC 32.4 LAB WRDW 11.5-15.0 % [place] High RDW 15.1 LAB WPLT 150-400 k/uL [place] Platelet Cnt 189 LAB WMPV 9.0-12.7 fL [place] MPV 9.1 Result Comment: Test performed at: [facility], [address] [place] [address] Rd[address] [place] [address]. LAB ABGRAN 1.45-7.50 k/uL Absol Gran 2.65 Count CBC Collected: 05/10/2018 Status: F Source: [facility] 5:25 AM [facility] REPOSITORY TYPE CODE TESTS RESULT OUT OF RANGE REFERENCE UNITS LAB CBC(LOINC) CBC Result Comment: CBC-COMPLETE BLOOD COUNT LAB WBC(LOINC) 4.5 - 10.8 x 10EE3/UL WBC Low 2.1 LAB RBC(LOINC) 4.50 - x 10EE6/UL 6.00 RBC Low 3.10 LAB HEMOGLOBIN(LOINC 13.0 - g/dl ) 17.5 Low HEMOGLOBIN 9.5 LAB HEMATOCRIT(LOINC 40.0 - % ) 52.0 Low HEMATOCRIT 28.1 LAB MCV(LOINC) 81 - 98 fl MCV 91 LAB MCH(LOINC) 27 - 33 pg MCH 31 LAB MCHC(LOINC) 32 - 36 X10 3 MCHC 34 LAB RDW/CV(LOINC) 12.0 - % 15.6 RDW/CV High 17.0 LAB PLATELET(LOINC) 150 - 450 x10EE3/UL PLATELET Low 131 LAB MPV(LOINC) 6.4 - 10.5 fl MPV 8.0 Result Comment: AUTOMATED DIFFERENTIAL LAB NEUT %(LOINC) 46.0 - 76.0 % Low NEUT % 37.0 LAB LYMPH %(LOINC) 20.0 - 45.0 % LYMPH % 34.4 LAB MONOS %(LOINC) 0.0 - 10.0 % MONOS % High 19.5 LAB EO %(LOINC) 0.0 - 7.0 % EO % High 7.6 LAB BASO %(LOINC) 0.0 - 2.0 % BASO % 1.5 LAB Lymph #(LOINC) 0.80 - 2.80 x10EE3/U Low L Lymph # 0.70 LAB Neut #(LOINC) 1.50 - 7.10 x10EE3/U Low L Neut # 0.80 LAB [place] #(LOINC) 0.20 - 1.00 x10EE3/U L [place] # 0.40 LAB EO #(LOINC) 0.00 - 0.50 x10EE3/U L EO # 0.20 LAB Baso #(LOINC) 0.00 - 0.10 x10EE3/U L Baso # 0.00 LAB MANUAL DIFF(LOINC) MANUAL DIFF N/A LAB MORPHOLOGY(LOINC ) MORPHOLOGY N/A Result Comment: {CD] Performed By: #### [id number] #### [facility],[address] [place] [address] CMP WITH EGFR Collected: 05/10/2018 Status: F Source: [facility] 5:25 AM [facility] REPOSITORY TYPE CODE TESTS RESULT OUT OF RANGE REFERENCE UNITS LAB CMP with eGFR(INC) CMP with eGFR Result Comment: COMPREHENSIVE METABOLIC PANEL LAB SODIUM(LOINC) 136 - 145 mmol/l SODIUM 139 LAB POTASSIUM(LOINC) 3.5 - 5.1 mmol/L POTASSIUM 3.5 LAB CHLORIDE(LOINC) 98 - 107 mmol/L CHLORIDE High 111 LAB CO2(LOINC) 21.0 - mmol/L 31.0 CO2 23.4 LAB GLUCOSE(LOINC) 74 - 106 mg/dl GLUCOSE High 114 LAB BUN(LOINC) 6 - 20 mg/dl BUN 9 LAB CREATININE(LOINC) 0.7 - 1.3 mg/dl CREATININE 0.8 LAB AST/SGOT(LOINC) 13 - 39 U/L AST/SGOT 15 LAB ALK PHOS(LOINC) 38 - 126 U/L ALK PHOS 42 LAB CALCIUM(LOINC) 8.6 - mg/dl 10.2 CALCIUM Low 8.3 LAB TOTAL 6.4 - 8.3 g/dl PROTEIN(LOINC) TOTAL Low PROTEIN 4.4 LAB ALBUMIN(LOINC) 3.4 - 4.8 g/dL ALBUMIN Low 2.6 LAB GLOBULIN(LOINC) 1.5 - 3.8 G/DL GLOBULIN 1.8 LAB A/G RATIO(LOINC) 0.9 - 1.6 A/G RATIO 1.4 LAB TOTAL BILI(LOINC) 0.0 - 1.5 mg/dl TOTAL BILI 0.4 LAB B/C RATIO(LOINC) 0 - 30 ratio B/C RATIO 11 LAB ALT/SGPT(LOINC) 10 - 40 U/L ALT/SGPT 16 LAB ANION GAP(LOINC) 10 - 20 mmol/L ANION Low GAP 8 LAB AGE(LOINC) years AGE 62 LAB eGFR(LOINC) 60 - 999 ML/MINUTE eGFR >60 LAB eGFR(AA)(LOINC) 60 - 999 ML/MINUTE eGFR(AA) >60 Result Comment: ACCORDING TO THE NATIONAL KIDNEY DISEASE EDUCATION PROGRAM(NKDE), A NORMAL eGFR IS A VALUE GREATER THAN OR EQUAL TO 60 ML/MIN/1.73 SQ METERS. CHRONIC KIDNEY DISEASE: <60mL/MIN/1.73 SQ METERS KIDNEY FAILURE: <15mL/MIN/1.73 SQ METERS THIS TEST SHOULD ONLY BE USED FOR PATIENTS 18 YEARS OF AGE AND OLDER. Performed By: #### [id number] #### [facility],[address] [place] [address] CBC Collected: 05/09/2018 Status: F Source: [facility] 5:20 AM [facility] REPOSITORY TYPE CODE TESTS RESULT OUT OF RANGE REFERENCE UNITS LAB CBC(LOINC) CBC Result Comment: CBC-COMPLETE BLOOD COUNT LAB WBC(LOINC) 4.5 - 10.8 x 10EE3/UL WBC Low 1.8 LAB RBC(LOINC) 4.50 - x 10EE6/UL 6.00 RBC Low 3.14 LAB HEMOGLOBIN(LOINC 13.0 - g/dl ) 17.5 Low HEMOGLOBIN 9.7 LAB HEMATOCRIT(LOINC 40.0 - % ) 52.0 Low HEMATOCRIT 28.4 LAB MCV(LOINC) 81 - 98 fl MCV 90 LAB MCH(LOINC) 27 - 33 pg MCH 31 LAB MCHC(LOINC) 32 - 36 X10 3 MCHC 34 LAB RDW/CV(LOINC) 12.0 - % 15.6 RDW/CV High 16.7 LAB PLATELET(LOINC) 150 - 450 x10EE3/UL PLATELET Low 123 LAB MPV(LOINC) 6.4 - 10.5 fl MPV 7.5 Result Comment: AUTOMATED DIFFERENTIAL LAB NEUT %(LOINC) 46.0 - 76.0 % Low NEUT % 45.6 LAB LYMPH %(LOINC) 20.0 - 45.0 % LYMPH % 29.5 LAB MONOS %(LOINC) 0.0 - 10.0 % MONOS % High 15.8 LAB EO %(LOINC) 0.0 - 7.0 % EO % High 8.1 LAB BASO %(LOINC) 0.0 - 2.0 % BASO % 1.0 LAB Lymph #(LOINC) 0.80 - 2.80 x10EE3/U Low L Lymph # 0.50 LAB Neut #(LOINC) 1.50 - 7.10 x10EE3/U Low L Neut # 0.80 LAB [place] #(LOINC) 0.20 - 1.00 x10EE3/U L [place] # 0.30 LAB EO #(LOINC) 0.00 - 0.50 x10EE3/U L EO # 0.10 LAB Baso #(LOINC) 0.00 - 0.10 x10EE3/U L Baso # 0.00 LAB MANUAL DIFF(LOINC) MANUAL DIFF N/A LAB MORPHOLOGY(LOINC ) MORPHOLOGY N/A Result Comment: {CD] Performed By: #### [id number] #### [facility],[address] [place], [place] [id number] CMP WITH EGFR Collected: 05/09/2018 Status: F Source: [facility] 5:20 AM [facility] REPOSITORY TYPE CODE TESTS RESULT OUT OF RANGE REFERENCE UNITS LAB CMP with eGFR(LOINC) CMP with eGFR Result Comment: COMPREHENSIVE METABOLIC PANEL LAB SODIUM(LOINC) 136 - 145 mmol/l SODIUM 138 LAB POTASSIUM(LOINC) 3.5 - 5.1 mmol/L Low POTASSIUM 3.3 LAB CHLORIDE(LOINC) 98 - 107 mmol/L CHLORIDE High 111 LAB CO2(LOINC) 21.0 - mmol/L 31.0 CO2 21.3 LAB GLUCOSE(LOINC) 74 - 106 mg/dl GLUCOSE 84 LAB BUN(LOINC) 6 - 20 mg/dl BUN 9 LAB CREATININE(LOINC) 0.7 - 1.3 mg/dl CREATININE 0.7 LAB AST/SGOT(LOINC) 13 - 39 U/L AST/SGOT 15 LAB ALK PHOS(LOINC) 38 - 126 U/L ALK PHOS 41 LAB CALCIUM(LOINC) 8.6 - mg/dl 10.2 CALCIUM Low 7.9 LAB TOTAL 6.4 - 8.3 g/dl PROTEIN(LOINC) TOTAL Low PROTEIN 4.5 LAB ALBUMIN(LOINC) 3.4 - 4.8 g/dL ALBUMIN Low 2.6 LAB GLOBULIN(LOINC) 1.5 - 3.8 G/DL GLOBULIN 1.9 LAB A/G RATIO(LOINC) 0.9 - 1.6 A/G RATIO 1.4 LAB TOTAL BILI(LOINC) 0.0 - 1.5 mg/dl TOTAL BILI 0.8 LAB B/C RATIO(LOINC) 0 - 30 ratio B/C RATIO 13 LAB ALT/SGPT(LOINC) 10 - 40 U/L ALT/SGPT 17 LAB ANION GAP(LOINC) 10 - 20 mmol/L ANION Low GAP 9 LAB AGE(LOINC) years AGE 62 LAB eGFR(LOINC) 60 - 999 ML/MINUTE eGFR >60 LAB eGFR(AA)(LOINC) 60 - 999 ML/MINUTE eGFR(AA) >60 Result Comment: ACCORDING TO THE NATIONAL KIDNEY DISEASE EDUCATION PROGRAM(NKDE), A NORMAL eGFR IS A VALUE GREATER THAN OR EQUAL TO 60 ML/MIN/1.73 SQ METERS. CHRONIC KIDNEY DISEASE: <60mL/MIN/1.73 SQ METERS KIDNEY FAILURE: <15mL/MIN/1.73 SQ METERS THIS TEST SHOULD ONLY BE USED FOR PATIENTS 18 YEARS OF AGE AND OLDER. Performed By: #### [id number] #### [facility],[address] [place] [address] ABDOMEN 2 VIEWS Observed: 05/08/2018 Status: F [facility] [place] [id number] Patient: BECCA MAGANA Phone#: : [phone] Age: 62 Gender: M Pt. Type: In Account: [id number] Location: 010 Ordering: IZABELA MAGANA Exam Date: 05/08/2018/10:17 Family Phys: MARIELY CHOWDARY Charge Code: [id number] Physician: Uinta Order #: [id number] DLP Dose#: PROCEDURE: ABDOMEN 2 VIEWS COMPARISON: [facility], , ABDOMEN 2 VIEWS, 05/07/2018, 15:50. INDICATIONS: Abdominal pain FINDINGS: BOWEL GAS PATTERN: There has been interval decrease in the degree of bowel gas. Stool is seen in the transverse colon. Air is seen in small and large bowel without evidence of dilatation or bstruction. Air is present in the rectum. CALCIFICATIONS: Renal shadows are partially obscured by overlying bowel gas and stool. OTHER: Surgical anastomosis material seen in the right lower quadrant. CONCLUSION: 1. Interval decrease in the degree of air within the large and small bowel. No dilated air-filled the bowel present on the current study. Dictated by: Natasha Prasad MD on 05/08/2018 at 10:57 Approved by: Natasha Prasad MD on 05/08/2018 at 10:57 ABDOMEN 2 VIEWS Observed: 05/07/2018 Status: F Source: [facility] [place] 4:[address] [address] Patient: BECCA MAGANA Phone#: : 1955 Age: 62 Gender: M Pt. Type: In Account: [id number] Location: 010 Ordering: IZABELA MAGANA Exam Date: 05/07/2018/15:50 Family Phys: MARIELY CHOWDARY Charge Code: [id number] Physician: Uinta Order #: [id number] DLP Dose#: PROCEDURE: ABDOMEN 2 VIEWS COMPARISON: [facility], , ABDOMEN 2 VIEWS, 02/24/2018, 11:18. INDICATIONS: Abdominal pain FINDINGS: BOWEL GAS PATTERN: The ascending colon is stool and air filled measuring up to 11.5 cm. There is air throughout the transverse and descending colon. There is air in loops of small bowel measuring up to 3.5 cm. There is air in the pelvis. CALCIFICATIONS: The renal shadows are obscured by overlying bowel gas. OTHER: Surgical anastomosis material seen in the right lower quadrant. CONCLUSION: 1. Dilated air-filled loop of small bowel. Air is seen in bowel throughout the colon and into the rectum. 2. Distended stool and air filled ascending colon. 3. Air filled transverse and descending colon. Dictated by: Natasha Prasad MD on 05/07/2018 at 16:35 Approved by: Natasha Prasad MD on 05/07/2018 at 16:35 CBC Collected: 05/07/2018 Status: F Source: [facility] [place] 5:25 AM [facility] REPOSITORY TYPE CODE TESTS RESULT OUT OF RANGE REFERENCE UNITS LAB CBC(LOINC) CBC Result Comment: CBC-COMPLETE BLOOD COUNT LAB WBC(LOINC) 4.5 - 10.8 x 10EE3/UL WBC 4.7 LAB RBC(LOINC) 4.50 - x 10EE6/UL 6.00 RBC Low 3.65 LAB HEMOGLOBIN(LOINC 13.0 - g/dl ) 17.5 Low HEMOGLOBIN 11.1 LAB HEMATOCRIT(LOINC 40.0 - % ) 52.0 Low HEMATOCRIT 32.9 LAB MCV(LOINC) 81 - 98 fl MCV 90 LAB MCH(LOINC) 27 - 33 pg MCH 31 LAB MCHC(LOINC) 32 - 36 X10 3 MCHC 34 LAB RDW/CV(LOINC) 12.0 - % 15.6 RDW/CV High 17.6 LAB PLATELET(LOINC) 150 - 450 x10EE3/UL PLATELET Low 144 LAB MPV(LOINC) 6.4 - 10.5 fl MPV 7.8 Result Comment: AUTOMATED DIFFERENTIAL LAB NEUT %(LOINC) 46.0 - 76.0 % NEUT % 66.3 LAB LYMPH %(LOINC) 20.0 - 45.0 % Low LYMPH % 18.3 LAB MONOS %(LOINC) 0.0 - 10.0 % MONOS % High 12.3 LAB EO %(LOINC) 0.0 - 7.0 % EO % 2.8 LAB BASO %(LOINC) 0.0 - 2.0 % BASO % 0.3 LAB Lymph #(LOINC) 0.80 - 2.80 x10EE3/U L Lymph # 0.90 LAB Neut #(LOINC) 1.50 - 7.10 x10EE3/U L Neut # 3.10 LAB [place] #(LOINC) 0.20 - 1.00 x10EE3/U L [place] # 0.60 LAB EO #(LOINC) 0.00 - 0.50 x10EE3/U L EO # 0.10 LAB Baso #(LOINC) 0.00 - 0.10 x10EE3/U L Baso # 0.00 LAB MANUAL DIFF(INC) MANUAL DIFF N/A LAB MORPHOLOGY([facility] ) MORPHOLOGY N/A Result Comment: {CD] Performed By: #### [id number] #### [facility],[address] [place] [address] CMP WITH EGFR Collected: 05/07/2018 Status: F Source: [facility] 5:25 AM [facility] REPOSITORY TYPE CODE TESTS RESULT OUT OF RANGE REFERENCE UNITS LAB CMP with eGFR(INC) CMP with eGFR Result Comment: COMPREHENSIVE METABOLIC PANEL LAB SODIUM(LOINC) 136 - 145 mmol/l SODIUM Low 133 LAB POTASSIUM(INC) 3.5 - 5.1 mmol/L POTASSIUM 3.5 LAB CHLORIDE(LOINC) 98 - 107 mmol/L CHLORIDE 104 LAB CO2(LOINC) 21.0 - mmol/L 31.0 CO2 24.1 LAB GLUCOSE(LOINC) 74 - 106 mg/dl GLUCOSE 91 LAB BUN(LOINC) 6 - 20 mg/dl BUN 13 LAB CREATININE(LOINC) 0.7 - 1.3 mg/dl CREATININE 0.7 LAB AST/SGOT(LOINC) 13 - 39 U/L AST/SGOT 14 LAB ALK PHOS(LOINC) 38 - 126 U/L ALK PHOS 48 LAB CALCIUM(LOINC) 8.6 - mg/dl 10.2 CALCIUM Low 8.5 LAB TOTAL PROTEIN(LOINC) 6.4 - 8.3 g/dl TOTAL Low PROTEIN 5.0 LAB ALBUMIN(LOINC) 3.4 - 4.8 g/dL ALBUMIN Low 3.1 LAB GLOBULIN(LOINC) 1.5 - 3.8 G/DL GLOBULIN 1.9 LAB A/G RATIO(LOINC) 0.9 - 1.6 A/G RATIO 1.6 LAB TOTAL BILI(LOINC) 0.0 - 1.5 mg/dl TOTAL BILI 1.0 LAB B/C RATIO(LOINC) 0 - 30 ratio B/C RATIO 19 LAB ALT/SGPT(LOINC) 10 - 40 U/L ALT/SGPT 22 LAB ANION GAP(LOINC) 10 - 20 mmol/L ANION Low GAP 8 LAB AGE(LOINC) years AGE 62 LAB eGFR(LOINC) 60 - 999 ML/MINUTE eGFR >60 LAB eGFR(AA)(LOINC) 60 - 999 ML/MINUTE eGFR(AA) >60 Result Comment: ACCORDING TO THE NATIONAL KIDNEY DISEASE EDUCATION PROGRAM(NKDE), A NORMAL eGFR IS A VALUE GREATER THAN OR EQUAL TO 60 ML/MIN/1.73 SQ METERS. CHRONIC KIDNEY DISEASE: <60mL/MIN/1.73 SQ METERS KIDNEY FAILURE: <15mL/MIN/1.73 SQ METERS THIS TEST SHOULD ONLY BE USED FOR PATIENTS 18 YEARS OF AGE AND OLDER. Performed By: #### [id number] #### [place] [id number] LIPASE Collected: 05/07/2018 Status: F Source: [facility] 5:25 [facility] REPOSITORY TYPE CODE TESTS RESULT OUT OF REFERENCE UNITS RANGE LAB LIPASE(LOIN 18.0 - 51.0 U/L C) Low LIPASE 13.0 Performed By: #### [id number] #### [place] [address] AMYLASE Collected: 05/07/2018 Status: F Source: [facility] 5:25 [facility] REPOSITORY TYPE CODE TESTS RESULT OUT OF REFERENCE UNITS RANGE LAB AMYLASE(BALA 29 - 103 U/L NC) AMYLASE 31 Performed By: #### [id number] #### [place] [address] MAGNESIUM Collected: 05/07/2018 Status: F [facility] AM [facility] REPOSITORY TYPE CODE TESTS RESULT OUT OF REFERENCE UNITS RANGE LAB MAGNESIUM( 1.6 - 2.6 mg/dl LOINC) MAGNESIUM 1.8 Performed By: #### [id number] #### [facility],[address] [place] [address] ABDOMEN/PELVIS W Observed: 05/06/2018 Status: F Source: [facility] 10:38 AM [facility] REPOSITORY [address] [address] Patient: BECCA MAGANA Phone#: : 1955 Age: 62 Gender: M Pt. Type: ER Account: [id number] Location: [facility] Ordering: MANPREET THOMPSON Exam Date: 05/06/2018/10:23 Family Phys: MARIELY BOYD Charge Code: [id number] Physician: Uinta Order #: [id number] DLP Dose#: PROCEDURE: CT ABDOMEN/PELVIS WITH CONTRAST COMPARISON: [facility], CT, ABDOMEN/PELVIS W CON, 05/28/2017, 23:25. INDICATIONS: Abdominal pain TECHNIQUE: After obtaining the patient's consent, CT images were created with non-ionic intravenous contrast material. All CT scans at this facility use dose modulation, iterative reconstruction, and/or weight based dosing when appropriate to reduce radiation dose to as low as reasonably achievable. IV CONTRAST: Omnipaque 350,80ml TOTAL DOSE: 20.30 CTDIvol(mGy) FINDINGS: LIVER: Fatty changes of the liver are present. There is no evidence of focal abnormality. BILIARY: The gallbladder is absent. PANCREAS: Fatty changes in the liver are present. There is mild peripancreatic fat stranding. Early pancreatitis cannot be excluded. Correlate with amylase/lipase levels. SPLEEN: Normal. No enlargement or focal lesion. KIDNEYS: Normal. No mass, obstruction, or calcification. ADRENALS: Normal. No mass or enlargement. AORTA/VASCULAR: Normal. No aneurysm or dissection. RETROPERITONEUM: Normal. No mass or adenopathy. BOWEL/MESENTERY: There is moderate stool retention in the proximal colon. Surgical sutures present at the descending colon/sigmoid level. Continued Report - Page 2 of 2 Patient: BECCA MAGANA Phone#: : 1955 Age: 62 Gender: M Pt. Type: ER Account: [id number] Location: 052 Ordering: MANPREET THOMPSON Exam Date: 05/06/2018/10:23 Family Phys: MARIELY CHOWDARY Charge Code: [id number] Physician: Uinta Order #: [id number] DLP Dose#: ABDOMINAL WALL: Proximal to the umbilicus there is an irregularly shaped soft tissue mass within the abdominal wall musculature. The mass measures 6.8 x 7.5 x 2.6 cm. URINARY BLADDER: Normal. No visible focal wall thickening, lesion, or calculus. PELVIC NODES: Normal. No adenopathy. PELVIC ORGANS: Normal. No visible mass. Pelvic organs appropriate for patient age. BONES: Degenerative changes of the spine are present. Immediately above the pubic symphysis is a second anterior abdominal wall mass measuring 6.3 x 2.8 x 4.9 cm. LUNG BASES: Normal. No visible pulmonary or pleural disease. OTHER: Negative. CONCLUSION: 1. There are 2 foci of abdominal wall mass one immediately proximal to the umbilicus and the second immediately above the level of the pubic symphysis. 2. There is moderate stool retention. 3. Fatty changes of the pancreas are present. The head and neck is minimal peripancreatic fat stranding. Early pancreatitis cannot be excluded. Correlate lipase/amylase. Dictated by: Yennifer Milligan MD on 05/06/2018 at 11:11 Approved by: Yennifer Milligan MD on 05/06/2018 at 11:11 URINALYSIS Collected: 05/06/2018 Status: F Source: [facility] 9:22 AM [facility] REPOSITORY TYPE CODE TESTS RESULT OUT OF REFERENCE UNITS RANGE LAB URINALYSIS (LOINC) URINALYSIS Result Comment: URINALYSIS LAB Specimen Type(LOINC) Specimen Type UNSPECIFIED LAB Color(LOINC) NORMAL: YELLOW Color p.yel LAB Clarity(LOINC) NORMAL: CLEAR Clarity clear LAB ph(LOINC) NORMAL: 5.0-8.0 ph 5 LAB Protein(LOINC) NORMAL: NEGATIVE Protein 15 Abnormal LAB Glucose(LOINC) NORMAL: NORMAL Glucose 50 Abnormal LAB Ketone(LOINC) NORMAL: NEGATIVE Ketone NEG LAB Bilirubin(LOINC) NORMAL: NEGATIVE NEG Bilirubin LAB Blood(LOINC) NORMAL: NEGATIVE Blood NEG LAB Urobilinog(LOINC NORMAL: ) NORMAL NORM Urobilinog LAB Sp NORMAL: [place](LOINC) 1.010-1.030 Sp 1.020 [place] LAB Nitrite(LOINC) NORMAL: NEGATIVE Nitrite NEG LAB Leukocytes(LOINC NORMAL: ) NEGATIVE NEG Leukocytes LAB Microscopic(LOIN C) NOT Microscopic INDICATED Performed By: #### [id number] #### [facility],[address] [place] [address] CBC Collected: 05/06/2018 Status: F Source: [facility] 9:22 AM [facility] REPOSITORY TYPE CODE TESTS RESULT OUT OF RANGE REFERENCE UNITS LAB CBC(LOINC) CBC Result Comment: CBC-COMPLETE BLOOD COUNT LAB WBC(LOINC) 4.5 - 10.8 x 10EE3/UL WBC 5.4 LAB RBC(LOINC) 4.50 - x 10EE6/UL 6.00 RBC Low 3.92 LAB HEMOGLOBIN(LOINC 13.0 - g/dl ) 17.5 Low HEMOGLOBIN 12.0 LAB HEMATOCRIT(LOINC 40.0 - % ) 52.0 Low HEMATOCRIT 35.4 LAB MCV(LOINC) 81 - 98 fl MCV 90 LAB MCH(LOINC) 27 - 33 pg MCH 31 LAB MCHC(LOINC) 32 - 36 X10 3 MCHC 34 LAB RDW/CV(LOINC) 12.0 - % 15.6 RDW/CV High 17.1 LAB PLATELET(LOINC) 150 - 450 x10EE3/UL PLATELET 166 LAB MPV(LOINC) 6.4 - 10.5 fl MPV 7.8 Result Comment: AUTOMATED DIFFERENTIAL LAB NEUT %(LOINC) 46.0 - 76.0 % NEUT % 66.2 LAB LYMPH %(LOINC) 20.0 - 45.0 % LYMPH % 20.3 LAB MONOS %(LOINC) 0.0 - 10.0 % MONOS % High 10.8 LAB EO %(LOINC) 0.0 - 7.0 % EO % 2.5 LAB BASO %(LOINC) 0.0 - 2.0 % BASO % 0.2 LAB Lymph #(LOINC) 0.80 - 2.80 x10EE3/U L Lymph # 1.10 LAB Neut #(LOINC) 1.50 - 7.10 x10EE3/U L Neut # 3.60 LAB [place] #(LOINC) 0.20 - 1.00 x10EE3/U L [place] # 0.60 LAB EO #(LOINC) 0.00 - 0.50 x10EE3/U L EO # 0.10 LAB Baso #(LOINC) 0.00 - 0.10 x10EE3/U L Baso # 0.00 LAB MANUAL DIFF(LOINC) MANUAL DIFF N/A LAB MORPHOLOGY(INC ) MORPHOLOGY N/A Result Comment: {CD] Performed By: #### [id number] #### [facility],[address] [place] [address] CMP WITH EGFR Collected: 05/06/2018 Status: F Source: [facility] 9:22 AM [facility] REPOSITORY TYPE CODE TESTS RESULT OUT OF RANGE REFERENCE UNITS LAB CMP with eGFR(INC) CMP with eGFR Result Comment: COMPREHENSIVE METABOLIC PANEL LAB SODIUM(LOINC) 136 - 145 mmol/l SODIUM 136 LAB POTASSIUM(LOINC) 3.5 - 5.1 mmol/L POTASSIUM 3.9 LAB CHLORIDE(LOINC) 98 - 107 mmol/L CHLORIDE 106 LAB CO2(LOINC) 21.0 - mmol/L 31.0 CO2 23.4 LAB GLUCOSE(LOINC) 74 - 106 mg/dl GLUCOSE High 109 LAB BUN(LOINC) 6 - 20 mg/dl BUN 19 LAB CREATININE(LOINC) 0.7 - 1.3 mg/dl CREATININE 0.8 LAB AST/SGOT(LOINC) 13 - 39 U/L AST/SGOT 14 LAB ALK PHOS(LOINC) 38 - 126 U/L ALK PHOS 54 LAB CALCIUM(LOINC) 8.6 - mg/dl 10.2 CALCIUM 8.8 LAB TOTAL 6.4 - 8.3 g/dl PROTEIN(LOINC) TOTAL Low PROTEIN 5.4 LAB ALBUMIN(LOINC) 3.4 - 4.8 g/dL ALBUMIN 3.5 LAB GLOBULIN(LOINC) 1.5 - 3.8 G/DL GLOBULIN 1.9 LAB A/G RATIO(LOINC) 0.9 - 1.6 A/G High RATIO 1.8 LAB TOTAL BILI(LOINC) 0.0 - 1.5 mg/dl TOTAL BILI 0.6 LAB B/C RATIO(LOINC) 0 - 30 ratio B/C RATIO 24 LAB ALT/SGPT(LOINC) 10 - 40 U/L ALT/SGPT 24 LAB ANION GAP(LOINC) 10 - 20 mmol/L ANION GAP 11 LAB AGE(LOINC) years AGE 62 LAB eGFR(LOINC) 60 - 999 ML/MINUTE eGFR >60 LAB eGFR(AA)(LOINC) 60 - 999 ML/MINUTE eGFR(AA) >60 Result Comment: ACCORDING TO THE NATIONAL KIDNEY DISEASE EDUCATION PROGRAM(NKDE), A NORMAL eGFR IS A VALUE GREATER THAN OR EQUAL TO 60 ML/MIN/1.73 SQ METERS. CHRONIC KIDNEY DISEASE: <60mL/MIN/1.73 SQ METERS KIDNEY FAILURE: <15mL/MIN/1.73 SQ METERS THIS TEST SHOULD ONLY BE USED FOR PATIENTS 18 YEARS OF AGE AND OLDER. Performed By: #### [id number] #### [place] [id number] LIPASE Collected: 05/06/2018 Status: F Source: REFUGIO SPEAR 9:22 AM [facility] REPOSITORY TYPE CODE TESTS RESULT OUT OF REFERENCE UNITS RANGE LAB LIPASE(LOIN 18.0 - 51.0 U/L C) High LIPASE 92.0 Performed By: #### [id number] #### [address] [id number] LACTATE Collected: 05/06/2018 Status: F Source: REFUGIO SPEAR 9:22 [facility] REPOSITORY TYPE CODE TESTS RESULT OUT OF REFERENCE UNITS RANGE LAB LACTATE(BALA 4.5 - 18.0 mg/dL NC) LACTATE 10.8 Performed By: #### [id number] #### [place] [id number] ACUTE ABD W/SUPINE, Observed: 05/06/2018 Status: F Source: REFUGIO SPEAR ERECT OR DECU 1V CXR 9:05 AM [place] [id number] Patient: BECCA MAGANA Phone#: : [phone] Age: 62 Gender: M Pt. Type: ER Account: [id number] Location: 052 Ordering: MANPREET THOMPSON Exam Date: 05/06/2018/8:51 Family Phys: MARIELY CHOWDARY Charge Code: [id number] Physician: [place] Order #: [id number] DLP Dose#: PROCEDURE: X-RAY ACUTE ABDOMINAL SERIES SINGLE VIEW CHEST COMPARISON: None. INDICATIONS: Abdomen pain FINDINGS: BOWEL GAS PATTERN: There is mild gaseous distention of small bowel. There is moderate to large stool retention in the proximal colon. FREE AIR: None. CALCIFICATIONS: None significant. LUNGS: Normal for age. MEDIASTINUM: Normal for age. PLEURA: Normal. OTHER: Negative. CONCLUSION: 1. Moderate to large proximal stool retention. There is mild gaseous distention of a few segments of small bowel with air-fluid levels. Dictated by: Yennifer Milligan MD on 05/06/2018 at 9:27 Approved by: Yennifer Milligan MD on 05/06/2018 at 9:27 REVENUE COLLECTOR REPORT Observed: 05/06/2018 Status: F Source: [facility] 8:20 AM [facility] CONSULTATION REPORT NAME ACCOUNT SEX AGE ADMIT DISCHARGE PT MED. NUMBER DATE DATE TYPE RECORD# BECCA MAGANA [id number] M 62 05/06/18 1 [id number] ROOM: [facility] DATE OF : 1955 DICTATING PHYSICIAN: Izabela Magana DATE OF CONSULTATION: May 06, 2018 REASON FOR CONSULTATION: Abdominal pain. HISTORY OF PRESENT ILLNESS: Becca Magana is a pleasant is a 62-year-old gentleman who came to the emergency room because of increased abdominal pain. The patient has a long history which included colon cancer with metastatic disease, which is currently being treated with chemotherapy. He initially had diverticulitis, had undergone resection and cancer was found. He initially had his resection done in [place], [place], but recently has been followed in [place], [place] for chemotherapy. He was told that he is not a candidate for further surgical resection. The patient had been doing well Sunday and Sunday before noon and then Sunday afternoon had gradual mid abdominal pain, decreased appetite, nausea, but did not have emesis. His last bowel movement was Sunday and he did not feel like eating much. He had no fever, sweats, chills, increased cough, or increased sputum production. He came to the emergency room, and in his emergency room workup was found to be mildly anemic, hemoglobin was 12.0, hematocrit 35.4. In addition, he was found to have elevated lipase at 92. CT scan showed mild peripancreatic fat stranding. His gallbladder was removed in the past. He does have some fatty changes in the liver and there is some moderate stool retention in the proximal colon. In addition, his previously noted abdominal wall masses were noted as well. Urine specific gravity was 1.020, negative nitrites, negative leukocytes. He was admitted, placed at bowel rest, given intravenous fluids, and is receiving Nubain for pain medication. He is on Protonix and also on Zofran as needed. PAST MEDICAL HISTORY: (1) Colon cancer with metastases/carcinomatosis followed by his oncologist in [place], [place]. (2) History of deep venous thrombosis. The patient is on Xarelto at home. (3) Prior history of diverticulitis. (4) No rheumatic fever, murmur, arrhythmia, bleed diathesis. PAST SURGICAL HISTORY: (1) Colon resection. (2) Abdominal exploration. (3) Appendectomy. (4) Cholecystectomy. (5) T&A. MEDICATIONS: Omeprazole 20 mg p.o. b.i.d., potassium chloride 20 mEq t.i.d., Xarelto 20 mg every p.m., Zofran 8 mg p.o. every 8 hours as needed. ALLERGIES: Denied. Page 1 of 3 BECCA MAGANA Consultation FAMILY HISTORY: See H&P. SOCIAL HISTORY: The patient is . He has attentive family members. Ethanol: None. Smoking: None. REVIEW OF SYSTEMS: See H&P. PHYSICAL EXAMINATION: This is a pleasant, alert gentleman resting comfortably in bed. He is fully oriented. Speech is clear. Vital signs: Per nursing notes. HEENT: EOMI, not icteric. Mucosal surfaces normal. Neck: No JVD. No thyromegaly. No cervical lymphadenopathy. Chest: Clear. No rales or rhonchi. Heart: Regular rate and rhythm. Soft S1, S2. No gallops, rubs, or murmurs. Abdomen: Soft. Healthy scars, slight fullness above the umbilicus consistent with his known metastases. There is very vague discomfort. Definitely no rebound, no guarding, no thrill, no bruit, and no pulsatile mass. Bowel sounds are somewhat decreased. No flank tenderness. He is not grossly distended. Calves are nontender. Fair radial upstroke. Neurologic examination is nonfocal. ASSESSMENT/RECOMMENDATION: 1. Abdominal pain with slightly elevated lipase and findings worrisome for early pancreatitis. He could also have ileus because of the pancreatitis. I certainly agree with bowel rest, intravenous fluids, and empiric antibiotics in view of his likely pancreatitis. I have explained to the patient at this point I do not see any surgical need. Consider obtaining a HIDA scan to see if his common duct is open and would also agree with continued monitoring with serial physical examinations. Repeat blood studies. 2. History of multiple abdominal surgeries. He may have mild obstructive symptomatology because of adhesions or could also have ileus because of the pancreatitis. He is on IV fluids and bowel rest. I will be happy to follow him with you. 3. Status post appendectomy. 4. Status post cholecystectomy. 5. Status post tonsillectomy and adenoidectomy. 6. The patient has no further questions, concurs, and will continue to follow with you. Thank you for allowing me to participate in this fine gentleman's care. Dictated By: Izabela Magana MD 05/06/18 18:26 JOB #: [id number] Transcribed By: mickey 05/06/18 19:13 Electronically signed by: Page 2 of 3 BECCA MAGANA Consultation E-Sign Dr. Izabela Magana MD 05/07/18 15:39 Page 3 of 3 BECCA MAGANA Consultation PROGRESS NOTE Observed: 05/06/2018 Status: F Source: [facility] 8:20 AM [facility] PROGRESS NOTE NAME ACCOUNT SEX AGE ADMIT DISCHARGE PT MED. RECORD# NUMBER DATE DATE TYPE BECCA MAGANA [id number] M 62 05/06/18 1 A [id number] ROOM: 312 DATE OF : 1955 DICTATING PHYSICIAN: Izabela Magana DATE OF SERVICE: May 07, 2018 SUBJECTIVE: Today, Becca feels about the same. He has slight abdominal fullness or distension, but minimal pain. Occasionally, it goes up to a 3 out of 10 in severity. Earlier, he had pain up to an 8 out of 10 in severity. He has not had a bowel movement or flatus today. He is fully alert, spouse is present. OBJECTIVE: T-MAX is 99.3. He is currently afebrile. Pulse is 82, respiratory rate 18, blood pressure 98/66, weight 191.8 pounds, which is up slightly, and oxygen saturation 93 to 97% on room air. Intake so far today 1660 mL, output 1475 mL. Chest: Good air movement bilaterally. Heart: Regular rate and rhythm. Abdomen: There are a few bowel sounds present. 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 Calves are unremarkable. DIAGNOSTIC DATA: Laboratories: White blood cell count is 4.7, hemoglobin 11.1, which is down very slightly, differential shows 66.3% neutrophils. Lipase is 13 down from 92, amylase is 31. Magnesium is 1.8, sodium 133, potassium 3.5, chloride 104, BUN 13, creatinine 0.7, glucose 91. Total protein 5.0, albumin 3.1. ASSESSMENT/PLAN: The patient is clinically somewhat better. He has some of a history worrisome for obstructive symptomatology; although, obstruction was not really noted on his initial radiographic examination. I would suggest repeating abdominal x-rays and looking for obstructive symptomatology. He does have lots of stool in his colon, consider adding Dulcolax suppository which should only stimulate the colon, and I have explained in detail to the patient and spouse the possibility of needing a nasogastric tube placed for decompression. Becca states this would be the last thing that he wishes to have done, but he realizes it may eventually be necessary. So we will try to stimulate the colon to empty, and perhaps this will make him more comfortable and hopefully his small bowel will again cone picker motility. At this point, I am not sure if he really did have pancreatitis or whether the slightly elevated lipase came from the small bowel or other etiology. Perhaps, he did have early pancreatitis, which may have lead to an ileus; however, it is difficult to tell what is causing this problem. He does have constipation, and at least this can be relieved. Overall, he appears to be stable. He has no further questions. Spouse has no further questions as well. Dictated By: Izabela Magana MD 05/07/18 15:30 Page 1 of 2 BECCA MAAGNA Progress Note JOB #: [id number] Transcribed By: am 05/07/18 15:55 Electronically signed by: E-Sign Dr. Izabela Magana MD 05/08/18 14:15 Page 2 of 2 BECCA MAGANA Progress Note PROGRESS NOTE Observed: 05/06/2018 Status: F Source: [facility] 8:20 AM [facility] PROGRESS NOTE NAME ACCOUNT SEX AGE ADMIT DISCHARGE PT MED. RECORD# NUMBER DATE DATE TYPE BECCA MAGANA [id number] M 62 05/06/18 1 A [id number] ROOM: [facility] DATE OF : 1955 DICTATING PHYSICIAN: Izabela Magana DATE OF SERVICE: May 08, 2018 SUBJECTIVE: Today, Becca feels better. Yesterday evening at around 1900 hours, he states he had a bowel movement. Since then, he has been passing some flatus and today he had some liquids and he noted that this seemed to activate his bowels and he has noticed some rumbling. Overall, he feels better. OBJECTIVE: The patient is alert, fully oriented. Speech is clear. Spouse was present this morning when I first saw him. He is afebrile. Pulse 74 to 78, respiratory rate 12 to 14, blood pressure 115/75, oxygen saturation 98% on room air, weight is 190.2 pounds. Intake so far today is 2795 mL, output 1000 mL. Chest: Good air movement bilaterally. Abdomen: Soft and nondistended. He has mild tenderness at the tumor site, but otherwise no significant tenderness. Extremities: Unremarkable. DIAGNOSTIC DATA: X-ray shows no distended bowel and he has air all the way through the colon (see report). ASSESSMENT/PLAN: The patient apparently has had an ileus, which is resolving. This may have also possibly been a mechanical obstruction, difficult to tell at this time. He has no evidence of residual pancreatitis if, indeed, there may have been an early pancreatitis. It is not clear at this point. Overall, he is improving. We will advance him to clear, cool liquids and possibly advance him to a soft diet tomorrow if he tolerates this well. Dictated By: Izabela Magana MD 05/08/18 14:46 JOB #: [id number] Transcribed By: am 05/08/18 15:04 Electronically signed by: E-Sign Dr. Izabela Magana MD 05/09/18 16:47 Page 1 of 1 BECCA MAGANA Progress Note PROGRESS NOTE Observed: 05/06/2018 Status: F Source: [facility] 8:20 AM [facility] PROGRESS NOTE NAME ACCOUNT SEX AGE ADMIT DISCHARGE PT MED. RECORD# NUMBER DATE DATE BECCA STILES [id number] M 62 05/06/18 1 A [id number] ROOM: 312 DATE OF : 1955 DICTATING PHYSICIAN: Izabela Magana DATE OF SERVICE: May 09, 2018 SUBJECTIVE: Today, Becca feels somewhat better, but he did note that after he had full liquids he felt somewhat bloated and slightly uncomfortable. OBJECTIVE: He is alert. He is afebrile. Pulse is 67, respiratory rate 14, blood pressure 118/76, weight is 198 pounds. Intake so far 3838 mL in, 2800 mL out. Abdomen: No significant change. ASSESSMENT/PLAN: The patient is improving. His potassium is somewhat low and this is being supplemented. Possible discharge tomorrow. The patient has no further questions. He is improving and is resolving his ileus/obstruction. Dictated By: Izabela Magana MD 05/09/18 17:56 JOB #: [id number] Transcribed By: am 05/09/18 18:00 Electronically signed by: E-Sign Dr. Izabela Magana MD 05/12/18 11:18 Page 1 of 1 BECCA MAGANA Progress Note PROGRESS NOTE Observed: 05/06/2018 Status: F Source: [facility] 8:20 AM [facility] PROGRESS NOTE NAME ACCOUNT SEX AGE ADMIT DISCHARGE PT MED. RECORD# NUMBER DATE DATE TYPE BECCA MAGANA [id number] M 62 05/06/18 05/10/18 1 A [id number] ROOM: 312 DATE OF : 1955 DICTATING PHYSICIAN: Izabela Magana DATE OF SERVICE: May 10, 2018 The patient was seen this morning at 10:15. He was alert, fully oriented, and he tolerated his breakfast well. He is passing multiple bowel movements. He appeared to understand his restrictions, diet recommendations and will call or return for any difficulties. It appears that his partial obstructive symptomatology has resolved and he has no evidence of any pancreatitis. He will call for any difficulties. Dictated By: Izabela Magana MD 05/10/18 18:53 JOB #: [id number] Transcribed By: sp 05/10/18 19:28 Electronically signed by: E-Sign Dr. Izabela Magana MD 05/12/18 11:18 Page 1 of 1 BECCA MAGANA Progress Note HISTORY AND PHYSICAL Observed: 05/06/2018 Status: F Source: [facility] EXAM 8:20 AM [facility] HISTORY & PHYSICAL NAME ACCOUNT SEX AGE ADMIT DISCHARGE PT MED. RECORD# NUMBER DATE DATE TYPE CHINOBECCA [id number] M 62 05/06/18 1 [id number] ROOM: [facility] DATE OF : [birth year] DICTATING PHYSICIAN: Skyler Gresham ADMITTING DIAGNOSIS: Pancreatitis. CHIEF COMPLAINT: Abdominal pain. HISTORY OF PRESENT ILLNESS: This is a 62-year-old gentleman with a history of colon cancer with metastasis. The patient has been receiving chemotherapy at present for abdominal masses in the anterior abdomen and has been doing well. His last chemotherapy was 2 weeks ago. The patient started to get ill today with acute abdominal pain, sharp to burning in nature in the mid upper abdomen radiating to the side. The pain was persistent all through and quite severe and he did present to the emergency room. In the emergency room, his vital signs were stable. He was afebrile. Blood pressure 125/88, saturation on room air was 99. Examination did reveal abdominal tenderness. Laboratory data revealed normal white count, hemoglobin 12. His chemistries were unremarkable. Liver function tests were normal. UA was unremarkable. CT scan of the abdomen was done which revealed possible early pancreatitis, and his lipase was slightly elevated. The patient was admitted for management. When I saw the patient, his pain improved, but he has been medicated. He was not passing gas. He does not have any nausea or vomiting. He did not have any recent episodes of diarrhea or constipation. PAST MEDICAL HISTORY: Remarkable for (1) Colon cancer with metastasis. 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 He had relapse now with two masses of abdominal wall lesion, malignant, which is being treated with chemotherapy and tolerated very well. (2) Remote history of pneumonia. (3) History of elevated PSA in the past. (4) History of pulmonary emboli on Xarelto. PAST SURGICAL HISTORY: The patient has had (1) Multiple abdominal surgery for colon cancer. (2) Appendectomy. (3) T&A in remote past. (4) cholecystectomy. He did have hand surgery due to saw table accident. MEDICATIONS: The patient is currently on (1) Minocycline 100 mg twice a day. (2) Omeprazole 30 mg a day. (3) Potassium 20 mEq 3 times a day. (4) Xarelto 20 mg daily. (5) Zofran 8 mg every 8 hours as needed. FAMILY HISTORY: Remarkable for grandfather who had colon cancer. One sister had diabetes. No other significant family history. SOCIAL HISTORY: The patient is . He does not smoke or drink alcohol. 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 REVIEW OF SYSTEMS: The patient denied fever, chills, or night sweats. No headache, blurry vision, earache, or sore throat. No neck pain. No chest pain. No cough, abdominal pain as described above with some nausea, but no vomiting. No diarrhea. No constipation recently, but he has not passed gas today or had any bowel movement. He denied any edema of the lower extremities. PHYSICAL EXAMINATION GENERAL APPEARANCE: This is a 62-year-old gentleman alert, cooperative with examination. VITAL SIGNS: Afebrile. Temperature 98.2, blood pressure 125/88, respirations 16. HEENT: Pupils are round, equal, and reactive. Normal eye motion. No congestion. No icterus. No sinus tenderness. Tongue to midline. Slightly dry mucous membranes. NECK: Neck is supple. LUNGS: Clear bilaterally. HEART: Regular. No gallop or murmurs. ABDOMEN: Revealed mild tenderness in the upper 2 sides of the abdomen. There is a small mass, one just above the umbilicus and the other one below in the abdominal wall. Both of them are hard. Bowel sounds were reduced. EXTREMITIES: Revealed no edema, cyanosis, or clubbing. DIAGNOSTIC DATA: White count was 5.4, hemoglobin 12, hematocrit 35.4. Lipase was 92. Chemistries revealed a sodium of 136, potassium 3.9, chloride 106, bicarbonate 23.4, BUN 19, creatinine 0.8. Chemistries were unremarkable. UA was unremarkable. CT scan of the abdomen did reveal the following: (1) There was some stranding around the pancreas. It could be indicative of early pancreatitis. (2) There was moderate stool retention. (3) There was 2 foci of abdominal wall mass, one proximal to the umbilicus and the second immediately above the level of the pubis synthesis. IMPRESSION: 1. Acute pancreatitis. The patient has had a cholecystectomy in the past, which makes it unlikely to be biliary in nature. Other charge authorizer such as chemotherapy and malignancies are on the list of triggering events. 2. History of colon cancer with reoccurrence, currently on chemotherapy and well-tolerated. Page 2 of 3 BECCA MAGANA History & Physical PLAN: 1. Admit the patient to the hospital. 2. IV fluid resuscitation. 3. Proton-pump inhibitors. 4. Bowel rest. 5. Pain control. 6. Monitor electrolytes, amylase and lipase. 7. Deep venous thrombosis prophylaxis. The patient is currently on Xarelto. We will go ahead and use sequential compression devices for now and consideration for anticoagulation if he remains stable. We will use antibiotic empirically at this point with meropenem. Dictated By: Skyler Gresham MD 05/06/18 17:34 JOB #: [id number] Transcribed By: mickey 05/06/18 18:37 Electronically signed by: KISHA GRESHAM MD 05/15/18 11:07 Update to H&P: [ ] No changes: I have examined the patient and reviewed the H&P and there are no changes. [ ] As previously dictated with the following changes: PHYSICIAN SIGNATURE: TIME: DATE: Page 3 of 3 BECCA MAGANA History & Physical PROGRESS NOTE Observed: 05/06/2018 Status: F Source: [facility] 8:20 AM [facility] PROGRESS NOTE NAME ACCOUNT SEX AGE ADMIT DISCHARGE PT MED. RECORD# NUMBER DATE DATE TYPE BECCA MAGANA [id number] M 62 05/06/18 1 A [id number] ROOM: 312 DATE OF : 1955 DICTATING PHYSICIAN: Skyler Gresham DATE OF SERVICE: May 08, 2018 SUBJECTIVE: He is feeling better. He states abdominal pain is better. He had a small bowel movement. He is tolerating small amounts of liquid intake. Update from nursing staff. OBJECTIVE: Blood pressure 107/64, heart rate 74, respirations 14, temperature 98.2, oxygen saturation 96% on room air. This is a well-nourished, well-developed 62-year-old male in no acute distress who is alert, pleasant, and cooperative. Neck is supple. No JVD. Lungs: Normal respiratory effort. Abdomen: Soft with minimal tenderness. Neurologic: He is alert and oriented. Mood, affect, and memory within normal limits. DIAGNOSTIC DATA: Laboratory data: White count 4.7, hemoglobin 11.1, hematocrit 32.7, platelets 144,000. Amylase 31, lipase 13. Sodium 133, potassium 3.5, BUN 13, creatinine 0.7. Albumin is 3.1. ASSESSMENT/PLAN: 1. Partial bowel obstruction, improving. Appreciate Dr. Izabela Magana's input. 2. Pancreatitis, improving. 3. Above was discussed with the patient and his family at the bedside. All of their questions were answered. He verbalized understanding of the plan. Also, the case was discussed with Dr. Izabela Magana today. I examined the patient myself, The E&M above is accurate reflection of my work Enrrique Gresham M.D. Dictated by daniel Bryant for Skyler Gresham M.D. 05/08/18 12:28 JOB #: [id number] Transcribed By: am 05/08/18 13:10 Electronically signed by: KISHA GRESHAM MD SIGNDATE Page 1 of 1 BECCA MAGANA Progress Note PROGRESS NOTE Observed: 05/06/2018 Status: F Source: [facility] 8:20 AM [facility] PROGRESS NOTE NAME ACCOUNT SEX AGE ADMIT DISCHARGE PT MED. RECORD# NUMBER DATE DATE TYPE BECCA MAGANA [id number] M 62 05/06/18 1 A [id number] ROOM: 312 DATE OF : 1955 DICTATING PHYSICIAN: Skyler Gresham DATE OF SERVICE: May 07, 2018 SUBJECTIVE: Mr. Magana did have some abdominal pain during the night, but today, after he got up, he did have an episode where he felt something moving inside his belly and after that, that alleviated a significant amount of his pain. He has been receiving also Ketorolac, which was added to his medications. OBJECTIVE: Vital signs has revealed the following: His highest temperature is 99.4, blood pressure 109/70, respirations 14, and heart rate is 82. HEENT: Pupils are round, equal, and reactive. Tongue is midline. Neck is supple. Lungs are clear bilaterally. The heart was regular. Abdomen revealed no significant tenderness. Bowel sounds are reduced. Extremities revealed no edema. DIAGNOSTIC DATA: Laboratory data revealed a white count of 4.7, hemoglobin 11.1, hematocrit 32.9, platelets are 144,000. Sodium 133, potassium 3.5, chloride 104, CO2 24.1, BUN 13, creatinine 0.7. The rest of his chemistries are unremarkable. Albumin is 3.1. ASSESSMENT/PLAN: 1. Abdominal pain, could be pancreatitis very mild and improving at this point versus partial ileus. The patient does appear to be having some symptomatic improvement. The treatment for both are the same. We will continue current measures, pain control, IV fluids, and appreciate Dr. Izabela Magana's input. 2. Colon cancer with reoccurrence. It does not appear to be an issue at this point. Dictated By: Skyler Gresham MD 05/07/18 15:48 JOB #: [id number] Transcribed By: mickey 05/07/18 16:06 Electronically signed by: KISHA GRESHAM MD 05/15/18 11:14 Page 1 of 2 CHINOBECCA Progress Note PROGRESS NOTE Observed: 05/06/2018 Status: F Source: [facility] 8:20 AM [facility] PROGRESS NOTE NAME ACCOUNT SEX AGE ADMIT DISCHARGE PT MED. RECORD# NUMBER DATE DATE TYPE BECCA MAGANA [id number] Josefa 62 05/06/18 1 A [id number] ROOM: 312 DATE OF : 1955 DICTATING PHYSICIAN: Skyler Gresham DATE OF SERVICE: May 09, 2018 SUBJECTIVE: Mr. Magana continued to improve. At this point, he denied any significant pain. He is ambulatory. He is tolerating his diet well. OBJECTIVE: Vital signs are stable. HEENT: Unremarkable. Neck is supple. Lungs are clear. The heart was regular. Abdomen revealed no significant tenderness. Bowel sounds were positive. DIAGNOSTIC DATA: White count is 1.8, hemoglobin 9.7, platelets are 123,000. Sodium 138, potassium 3.3, bicarbonate 21.3, BUN 9, creatinine 0.7. ASSESSMENT: 1. Ileus, resolving. Continue current measures. 2. Hypokalemia. We will correct orally. 3. Leukopenia most likely reflection of the patient's chemotherapy, and it could be the normal white count on presentation to present elevated white count in fact. PLAN: Continue current treatment. Reassess the situation in the morning. Dictated By: Skyler Gresham MD 05/09/18 16:46 JOB #: [id number] Transcribed By: am 05/09/18 16:58 Electronically signed by: KISHA GRESHAM MD 05/15/18 11:14 Page 1 of 1 EBCCA MAGANA A Progress Note DISCHARGE SUMMARY Observed: 05/06/2018 Status: F Source: [facility] 8:20 AM [facility] DISCHARGE SUMMARY NAME ACCOUNT SEX AGE ADMIT DISCHARGE PT MED. RECORD# NUMBER DATE DATE TYPE BECCA MAGANA [id number] Josefa 62 05/06/18 05/10/18 1 [id number] ROOM: 312 DATE OF : 1955 DICTATING PHYSICIAN: Skyler Gresham ADMITTING DIAGNOSIS: Pancreatitis. FINAL DIAGNOSES: 1. Partial bowel obstruction, treated and resolved. 2. Metastatic carcinoma of the colon to the abdominal wall. HISTORY OF PRESENT ILLNESS: This is a 62-year-old gentleman with metastatic colon cancer. The patient was in his usual state of health. He presented to the Emergency Room with extensive and severe abdominal pain across the upper area on both sides of the abdomen. In the Emergency Room, vital signs were stable. The abdomen revealed bilateral tenderness from the epigastric area to both sides. The rest of his examination was unremarkable. CT scan of the abdomen did reveal some dilated loops of bowel. He had some inflammatory processes in the tail of the pancreas. Lipase was slightly elevated. At that point, entertainment of the diagnosis of pancreatitis was done. HOSPITAL COURSE: The patient was admitted and initiated on PPIs, broad-spectrum antibiotics, IV fluid resuscitation, and pain control. He had some improvement. Surgical consultation was obtained by Dr. Izabela Magana, who saw the patient and followed with his management. Repeat x-ray of the abdomen did reveal some partial bowel obstruction. His lipase went back to low on the following day, which made pancreatitis less likely. The patient at that point was felt to have a partial bowel obstruction. He was initiated on some clear liquid initially and his diet advanced carefully with continuation of the fluid. He did receive a laxative in the form of Dulcolax suppositories, and this did help some. On the day prior to discharge, the patient was walking the hallways well. He felt the bowels starting to move, and he did have a bowel movement. On the day of discharge, he was doing well, eating, and had a good bowel movement. He was discharged home in stable condition. CONDITION ON DISCHARGE: Improved. MEDICATIONS ON DISCHARGE: The patient was discharged on probiotics once a day. He will continue Zofran 8 mg every 8 hours as needed, Xarelto 20 mg daily, potassium chloride 20 mEq 3 times daily, omeprazole 20 mg twice a day, and minocycline 100 mg twice a day. DISCHARGE INSTRUCTIONS/PLAN: Activity as tolerated. Diet: Regular with increased fiber. Page 1 of 2 BECCA MAGANA Discharge Summary Dictated By: Skyler Gresham MD 05/10/18 18:02 JOB #: [id number] Transcribed By: agustin 05/11/18 07:58 Electronically signed by: KISHA GRESHAM MD 05/15/18 11:17 Page 2 of 2 BECCA MAGANA Discharge Summary EMERGENCY REPORT Observed: 05/06/2018 Status: F Source: [facility] 8:20 AM [facility]ENCY RO[facility] REPORT NAME ACCOUNT SEX AGE ADMIT DISCHARGE PT MED. RECORD# NUMBER DATE DATE TYPE BECCA MAGANA [id number] M 62 05/06/18 3 [id number] ROOM: ER DATE OF : 1955 DICTATING PHYSICIAN: Manpreet Malin CHIEF COMPLAINT: Abdominal pain. HISTORY OF PRESENT ILLNESS: This is a 62-year-old male patient with a history of abdominal carcinomatosis, seen at [facility] where he gets chemotherapy. His last dose of chemotherapy was last week, and he is due to have it tomorrow. He has a history of bowel obstructions x1 and says that he feels exactly the same as he did on that previous episode. He states that he has not been able to eat anything until last night he ate some popcorn. His last bowel movement was Sunday night and was not bloody in nature. He has been able to urinate. He has had no fever, chills, cough, chest pain, or shortness of breath. No nausea. No vomiting. No diarrhea, flank pain, or back pain. PAST MEDICAL HISTORY: Abdominal carcinomatosis, colon cancer. PAST SURGICAL HISTORY: Appendectomy, cholecystectomy, tonsils and adenoids. MEDICATIONS: See nursing notes. ALLERGIES: None. FAMILY HISTORY: Noncontributory. SOCIAL HISTORY: He lives with family. He denies alcohol, tobacco, or illicit drug abuse. REVIEW OF SYSTEMS: Ten systems reviewed and present above in the HPI. PHYSICAL EXAMINATION: Vital signs: Blood pressure 125/88, pulse 83, respiratory rate 16, O2 saturation 99% on room air. General: Well-developed, well-nourished, well-hydrated, alert and oriented x3 in no acute distress. Head: Normocephalic and atraumatic. Pupils are equal and reactive to light bilaterally. Mucous membranes are moist. No intraoral lesions. Full range of motion of the neck without any difficulty. Heart rate and rhythm are regular without murmur, gallop, or rub. Lungs: Clear to auscultation bilaterally without wheeze, rales, or rhonchi. Abdomen: Soft, diffuse tenderness to palpation without guarding, rebound, or rigidity. Minimal and diminished bowel sounds are present. No pulsatile abdominal masses or hernia. Femoral pulses are symmetric. No lower extremity edema, calf tenderness, or swelling. Page 1 of 2 BECCA MAGANA Emergency Room Report EMERGENCY DEPARTMENT COURSE AND TREATMENT: The patient is made n.p.o., given pain medication. Acute abdominal series, CT with IV contrast, CBC, CMP, lipase, urinalysis, and further assessment and evaluation. Dictated By: Manpreet Malin DO 05/06/18 08:41 JOB #: [id number] Transcribed By: am 05/06/18 13:18 Electronically signed by: E-Sign: MANPREET MALIN MD 06/11/18 12:00 Page 2 of 2 BECCA MAGANA Emergency Room Report EMERGENCY REPORT Observed: 05/06/2018 Status: F Source: [facility] 8:20 AM [facility] EM[facility]GENCY ROOM REPORT NAME ACCOUNT SEX AGE ADMIT DISCHARGE PT MED. RECORD# NUMBER DATE DATE TYPE BECCA MAGANA [id number] M 62 05/06/18 1 [id number] ROOM: [facility] DATE OF : 1955 DICTATING PHYSICIAN: Manpreet Malin CHIEF COMPLAINT: Abdominal pain. 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 They initially removed part of his colon and thought it was due to diverticulitis, but found out it was actually a cancer. He gets his chemotherapy at [facility], and is due again on Sunday. He said he has had a bowel obstruction in the past. Dr. Magana took care of him, and he feels that way again. Over the weekend, he has had increasing abdominal pain, nausea, decreased appetite, and no bowel movements since Sunday, but he has not been eating as much. No fevers, chills, cough, chest pain, or shortness of breath. PAST MEDICAL HISTORY: Colon cancer, abdominal pneumo carcinomatosis. PAST SURGICAL HISTORY: See nursing notes. MEDICATIONS: See nursing notes. ALLERGIES: None. FAMILY HISTORY: Noncontributory. REVIEW OF SYSTEMS: Ten systems reviewed and present above in the HPI. PHYSICAL EXAMINATION: Vital signs: Blood pressure 125/88, pulse 83, respiratory rate 16, O2 saturation 99% on room air, and temperature 98.1. General: Well-developed, well-nourished, well-hydrated, alert and oriented x3. Heart rate and rhythm are regular without murmur, gallop, or rub. Lungs: Clear to auscultation bilaterally without wheeze, rales, or rhonchi. Abdomen: Tenderness diffusely. No guarding, rebound, or rigidity. Diminished bowel sounds. Serial abdominal examination DIAGNOSTIC DATA: Acute x-ray does not show any obstruction. CT of the abdomen and pelvis shows early pancreatitis, mildly elevated lipase. Laboratories are stable. EMERGENCY DEPARTMENT COURSE AND TREATMENT: Pain control and fluids. Page 1 of 2 BECCA MAGANA Emergency Room Report DIAGNOSIS: Acute pancreatitis. PLAN/DISPOSITION: Dr. Magana was not available to speak as he is in the OR for 2 to 3 hours, so I contacted Dr. Gresham. He is going to admit him medically in stable condition. Dictated By: Manpreet Malin DO 05/06/18 13:11 JOB #: [id number] Transcribed By: am 05/06/18 15:41 Electronically signed by: E-Sign: MANPREET MALIN MD 06/11/18 12:00 Page 2 of 2 BECCA MAGANA Emergency Room Report CNPN Observed: 05/06/2018 Status: COMPLETED Source: [place] 12:00 AM [facility] REPOSITORY Telephone (HEMAWS) BECCA MAGANA ([id number]) 1955 M Date Time Provider Department 05/06/18 GERALDO STONE HEMAWS During your visit today, we recorded the following information about you: Azeb Mann LPN, LPN 05/06/2018 1:11 PM Signed Cancel appt. For today , pt. Being admitted to [facility] . AL Nicholsonoff Psr 05/06/2018 2:35 PM Signed Schedule updated. Ketty Asher PSR 05/07/2018 1:20 PM Signed Patient's called - patient is still in the hospital - please cancel appointment for tomorrow 05/08 and for 05/10 - please call patient's Arlene to r/s appts for next week Allergies As of Date: 05/06/2018 (No Known Allergies) Date Reviewed: 04/26/2018 Reviewed by: Jessika Lyles RN, RN - Fully Assessed Reason for Visit: cancel appt. [Other] Prescriptions as of 05/06/2018 Sig: POTASSIUM CHLORIDE ER 20 MEQ * Take 1 tablet by mouth three * ONDANSETRON HCL 8 MG TABLET Take 1 tablet by mouth every * DEXAMETHASONE 4 MG TABLET Take 1 tablet by mouth twice * RIVAROXABAN 20 MG TABLET Take 1 tablet by mouth daily * Problem List As Of Date 05/06/2018 Noted Resolved Colon cancer (HCC) [C18.9] 08/21/2017 Peritoneal carcinomatosis (HCC) [C78.6, C80.1] INVALID FOR* Metastasis to liver (HCC) [C78.7] INVALID FOR* More... Drug rash [L27.0] INVALID FOR* Malignant neoplasm of sigmoid colon (HCC) [C18.*INVALID FOR* Chronic saddle pulmonary embolism without acute*INVALID FOR* Encounter Status:Closed by GAVIN BELTRAN on 05/06/18 CT-ABDOMEN/PELVIS W CON Observed: 05/06/2018 Status: F Source: [facility] 12:00 AM [facility] REPOSITORY Images were obtained outside of [facility] [id number] Observed: 04/23/2018 Status: COMPLETED Source: [place] 10:07 AM [facility] REPOSITORY HNO ID: [id number] Author: Geraldo Stone Service: (none) Author Type: Physician Type: Progress Notes Filed: 04/23/2018 10:25 AM Note Text: Diagnosis: 1) Metastatic recurrence of stage III colon cancer. MSI stable. BRAF - A sequence change: c.1781A>G ([id number]) was detected at approximately 48% allele proportion. [Reference sequence: ([id number])]. KRAS - No variant detected [Reference?sequence: ([id number])]. NRAS - No variant detected [Reference sequence: ([id number]_[id number])]. Patient referred by ongoing management of metastatic colon cancer. HPI: The patient is a 62 yo male who developed abdominal pain around June 2014. His symptoms progressively worsened throughout the spring. He also began losing weight in the spring and this culminated in a hospitalization for what was thought to be diverticulitis in December 2014. He underwent a CT scan which was thought to demonstrated a left lower quadrant abscess. The drain was placed and he was treated with antibiotic treatment. Pain flared and a repeat CT scan on 01/24/15 demonstrated marked inflammatory phlegmonous changes of the proximal sigmoid colon. He therefore underwent a colonoscopy and sigmoid colon resection with lymph node dissection on 01/29/2015. The sigmoid colon was noted to be adherent to the anterior abdominal wall and small bowel. The final pathology demonstrated an invasive moderately differentiated adenocarcinoma, tumor extension through the colonic wall and involving the muscularis propria of the small bowel. The proximal margin resection had a small focus of tumor present at the serosal surface. None of 25 lymph nodes were involved. The patient went on to receive 12 cycles FOLFOX which she finished on 09/13/2015. Surveillance CT scan the abdomen and pelvis on January 06, 2016 demonstrated a small omental nodules. He was treated with 4 cycles of FOLFIRI and then underwent exploratory laparotomy, excision of peritoneal/liver/small bowel/mesenteric nodules, heated intraperitoneal chemotherapy (HIPEC) administration for 100 minutes, cystoscopy with bilateral ureteral stent placement on 05/22/2016. Pathology: 1. Small bowel peritoneal nodules, excision (A) - Organizing fibrous adhesions. - No evidence of malignancy. 2. Left liver nodule, biopsy (B) - Adenocarcinoma in liver, consistent with colonic primary. 3. Omentum, excision (C) - Infiltrating adenocarcinoma, consistent with colonic primary. 4. Left upper quadrant abdominal wall, biopsy (D) - Infiltrating adenocarcinoma, consistent with colonic primary. 5. Pelvic nodule and omentum, excision (E) - Infiltrating adenocarcinoma, consistent with colonic primary. - One lymph node, negative for malignancy (0/1). 6. Ileal nodule, excision (F) - Infiltrating adenocarcinoma, consistent with colonic primary. In end of July/first week of August this year he underwent repeat staging workup (CT and PET) which unfortunately showed liver metastasis and intra-abdominal metastases. He recently started back on chemotherapy with FOLFIRI and cetuximab. He's had 2 cycles to date. Previous therapy: 1) FOLFOX ?12 cycles completed 09/13/2015. 2) FOLFIRI x4 cycles. 3) Exploratory lap 04/2016 with HIPEC (mitomycin). Current therapy: 1) FOLFIRI (with Vectibix--side effects permitting). Interim history: Feeling much better now that off treatment for almost a month. Diarrhea resolved. Appetite improved. Having discomfort in the left midabdomen. Tumor itself is not quite as tender as it had been but it does feel harder to him. Rash cleared up. No episodes of jaundice. Tolerating Xarelto well with no unusual bleeding or unexplained bruising-verified. Symptoms from neuropathy remain stable-verified. PMH, medications and allergies as below personally reviewed by me today. Any changes documented in appropriate section. ROS: Constitutional: Denies episodes night sweats. Neuro: Denies HIDALGO, vertigo, dizziness and imbalance. HEENT: No recent change in voice, vision or hearing. Resp: Denies cough, wheeze and hemoptysis. CVS: Denies exertional chest pain, PND, orthopnea and LE edema. GI: Denies dysgeusia. : Denies dysuria or gross hematuria. No symptoms of bladder outlet obstruction. Endo: Denies hot flashes. Denies polyuria and polydipsia. Denies heat and cold intolerance. Musculoskeletal: Denies bone, back, joint and muscular pain. Derm: Denies jaundice and diffuse pruritis. Heme: See above. Psych: Normal mood. PHYSICAL EXAM: Vitals: Blood pressure 101/67, pulse 76, temperature 36.7 ?C (98.1 ?F), temperature source Temporal Artery, weight 89.4 kg (197 lb). Well-appearing and in no acute distress. EYES: Sclerae are anicteric bilaterally. ENT: Oral mucosa is unremarkable. There is no sign of thrush or mucositis. NECK: Supple. No enlargement of thyroid. LYMPHATIC: There is no palpable cervical, supraclavicular, axillary or inguinal adenopathy. RESPIRATORY: Inspiratory breath sounds are of normal intensity in all woodruff. No rales, wheezes or rhonchi. Expiratory phase is normal. CARDIOVASCULAR: Rhythm is regular. Normal intensity S1/S2. There is no gallop or murmur. ABDOMEN: The abdomen is nondistended. No organomegaly. The periumbilical tumor is firmer but not larger. Extremities: No swelling or edema. SKIN: No rash presently. 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 No focal motor weakness. MUSCULOSKELETAL: NNo muscle wasting. ASSESSMENT/PLAN: (C18.9) Malignant neoplasm of colon, unspecified part of colon (HCC) (primary encounter diagnosis) (C78.6, C80.1) Peritoneal carcinomatosis (HCC) (C78.7) Metastasis to liver (HCC) (L27.0) Drug rash Assessment: -KPS is 80-90%. -MMR proficient. [facility] sent previous testing that had been done at the time of his surgery 02/2016. Please see scanned document. -Tolerating treatment with current dose of Vectibix fairly well. He is at low dose and tends to get cumulative toxicity of rash and diarrhea. Plan: -Resume chemotherapy tomorrow. Dose reduce irinotecan and Vectibix further. -Olanzapine 5 mg at at bedtime. Zofran 8 mg every 6-8 hours throughout the day. -CT scan after 2 more cycles. -Continue potassium supplement. 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 -No unusual bleeding episodes. Plan: -Continue Xarelto. Geraldo Stone, DO [facility] ABS GR + CBC Collected: 04/23/2018 Status: F Source: [place] 10:02 AM [facility] REPOSITORY TYPE CODE TESTS RESULT OUT OF REFERENCE UNITS RANGE LAB WWBC 3.70-11.00 k/uL [facility] WBC 5.57 LAB WRBC 4.20-6.00 m/uL Low [facility] RBC 3.57 LAB WHGB 13.0-17.0 g/dL Low [facility] Hemoglobin 10.8 LAB WHCT 39.0-51.0 % Low [facility] Hematocrit 33.2 LAB WMCV 80.0-100.0 fL [facility] MCV 93.0 LAB WMCH 26.0-34.0 pg [facility] MCH 30.3 LAB WMCHC 30.5-36.0 g/dL [facility] MCHC 32.5 LAB WRDW 11.5-15.0 % [facility] High RDW 16.9 LAB WPLT 150-400 k/uL Low [facility] Platelet Cnt 148 LAB WMPV 9.0-12.7 fL [facility] MPV 9.8 Result Comment: Test performed at: [facility], [address] [place], [place] [address] [place] [address]. LAB ABGRAN 1.45-7.50 k/uL Absol Gran 3.44 Count BMP PLUS FHC Collected: 04/23/2018 Status: F Source: [place] 10:02 AM [facility] REPOSITORY TYPE CODE TESTS RESULT OUT OF REFERENCE UNITS RANGE LAB NA 128-145 mmol/L Sodium 141 LAB K 3.6-5.1 mmol/L Potassium 4.4 LAB CL 98-108 mmol/L Chloride 108 LAB CO2 18-33 mmol/L CO2 25 LAB CRET 0.6-1.2 mg/dL Creatinine 1.10 LAB BUN 7-22 mg/dL BUN 18 LAB GLU 73-118 mg/dL Glucose 91 LAB CA 8.0-10.3 mg/dL Calcium, Total 9.1 LAB MG 1.6-2.3 mg/dL Low Magnesium 1.4 LAB AGAP 9-18 mmol/L Low Anion Gap 8 LAB GFRAA eGFR- >60 Amer. LAB GFRNAA . eGFR-All Other Races >60 Result Comment: eGFR (Estimated GFR) Units of measure: mL/min/1.73 meters squared eGFR is derived from the reexpressed MDRD Study equation using the following parameters: serum creatinine, age, gender and race. The creatinine assay has been calibrated to be traceable to IDMS. An eGFR <60 mL/min/1.73m2 for >3 months is consistent with chronic kidney disease. Refer to KDOQI guidelines for clinical interpretation. In patients with unstable renal function, e.g. those with acute kidney injury, the eGFR may not accurately reflect actual GFR. HEPATIC FUNCTN PANEL Collected: 04/23/2018 Status: F Source: [place] 10:02 AM [facility] REPOSITORY TYPE CODE TESTS RESULT OUT OF REFERENCE UNITS RANGE LAB ALB 3.9-4.9 g/dL Low Albumin 3.7 LAB TBIL 0.2-1.3 mg/dL Bilirubin, Total 0.4 LAB CBIL <0.2 mg/dL Bilirubin,Conjuga <0.2 [place] LAB ALKP 38-113 U/L Alkaline Phosphatase 88 LAB AST 14-40 U/L AST 19 LAB ALT 10-54 U/L ALT 19 LAB TP 6.3-8.0 g/dL Low Protein, Total 5.7 Performed By: #### HFP, CEA #### [facility] [address] [place], [place] [address] CEA Collected: 04/23/2018 Status: F Source: [place] 10:02 AM [facility] REPOSITORY TYPE CODE TESTS RESULT OUT OF RANGE REFERENCE UNITS LAB CEA 0.0-2.9 ng/mL High CEA 11.1 Result Comment: Test analyzed by the Brandon DxI method. Performed By: #### HFP, CEA #### [facility] [address] [place], [place] [address] CNOVSP Observed: 04/23/2018 Status: COMPLETED Source: [place] 9:50 AM [facility] REPOSITORY Visit (SP) Office (DAMASO) BECCA MAGANA ([id number]) 1955 M Date Time Provider Department 04/23/18 9:50 AM GERALDO STONE During your visit today, we recorded the following information about you: Temperature Pulse Blood pressure Weight 98.1 degrees 76/minute 101/67 89.4 kg Geraldo Stone DO 04/23/2018 10:25 AM Signed Diagnosis: 1) Metastatic recurrence of stage III colon cancer. MSI stable. BRAF - A sequence change: c.1781A>G ([id number]) was detected at approximately 48% allele proportion. [Reference sequence: ([id number])]. KRAS - No variant detected [Reference?sequence: ([id number]_[id number])]. NRAS - No variant detected [Reference sequence: (NM_[id number])]. Patient referred by ongoing management of metastatic colon cancer. HPI: The patient is a 62 yo male who developed abdominal pain around June 2014. His symptoms progressively worsened throughout the spring of 2014. He also began losing weight in the spring and this culminated in a hospitalization for what was thought to be diverticulitis in December 2014. He underwent a CT scan which was thought to demonstrated a left lower quadrant abscess. The drain was placed and he was treated with antibiotic treatment. Pain flared and a repeat CT scan on 01/24/15 demonstrated marked inflammatory phlegmonous changes of the proximal sigmoid colon. He therefore underwent a colonoscopy and sigmoid colon resection with lymph node dissection on 01/29/2015. The sigmoid colon was noted to be adherent to the anterior abdominal wall and small bowel. The final pathology demonstrated an invasive moderately differentiated adenocarcinoma, tumor extension through the colonic wall and involving the muscularis propria of the small bowel. The proximal margin resection had a small focus of tumor present at the serosal surface. None of 25 lymph nodes were involved. The patient went on to receive 12 cycles FOLFOX which she finished on 09/13/2015. Surveillance CT scan the abdomen and pelvis on January 06, 2016 demonstrated a small omental nodules. He was treated with 4 cycles of FOLFIRI and then underwent exploratory laparotomy, excision of peritoneal/liver/small bowel/mesenteric nodules, heated intraperitoneal chemotherapy (HIPEC) administration for 100 minutes, cystoscopy with bilateral ureteral stent placement on 05/22/2016. Pathology: 1. Small bowel peritoneal nodules, excision (A) - Organizing fibrous adhesions. - No evidence of malignancy. 2. Left liver nodule, biopsy (B) - Adenocarcinoma in liver, consistent with colonic primary. 3. Omentum, excision (C) - Infiltrating adenocarcinoma, consistent with colonic primary. 4. Left upper quadrant abdominal wall, biopsy (D) - Infiltrating adenocarcinoma, consistent with colonic primary. 5. Pelvic nodule and omentum, excision (E) - Infiltrating adenocarcinoma, consistent with colonic primary. - One lymph node, negative for malignancy (0/1). 6. Ileal nodule, excision (F) - Infiltrating adenocarcinoma, consistent with colonic primary. In end of July/first week of August this year he underwent repeat staging workup (CT and PET) which unfortunately showed liver metastasis and intra-abdominal metastases. He recently started back on chemotherapy with FOLFIRI and cetuximab. He's had 2 cycles to date. Previous therapy: 1) FOLFOX ?12 cycles completed 09/13/2015. 2) FOLFIRI x4 cycles. 3) Exploratory lap 04/2016 with HIPEC (mitomycin). Current therapy: 1) FOLFIRI (with Vectibix--side effects permitting). Interim history: Feeling much better now that off treatment for almost a month. Diarrhea resolved. Appetite improved. Having discomfort in the left midabdomen. Tumor itself is not quite as tender as it had been but it does feel harder to him. Rash cleared up. No episodes of jaundice. Tolerating Xarelto well with no unusual bleeding or unexplained bruising-verified. Symptoms from neuropathy remain stable-verified. PMH, medications and allergies as below personally reviewed by me today. Any changes documented in appropriate section. ROS: Constitutional: Denies episodes night sweats. Neuro: Denies HIDALGO, vertigo, dizziness and imbalance. HEENT: No recent change in voice, vision or hearing. Resp: Denies cough, wheeze and hemoptysis. CVS: Denies exertional chest pain, PND, orthopnea and LE edema. GI: Denies dysgeusia. : Denies dysuria or gross hematuria. No symptoms of bladder outlet obstruction. Endo: Denies hot flashes. Denies polyuria and polydipsia. Denies heat and cold intolerance. Musculoskeletal: Denies bone, back, joint and muscular pain. Derm: Denies jaundice and diffuse pruritis. Heme: See above. Psych: Normal mood. PHYSICAL EXAM: Vitals: Blood pressure 101/67, pulse 76, temperature 36.7 ?C (98.1 ?F), temperature source Temporal Artery, weight 89.4 kg (197 lb). Well-appearing and in no acute distress. EYES: Sclerae are anicteric bilaterally. ENT: Oral mucosa is unremarkable. There is no sign of thrush or mucositis. NECK: Supple. No enlargement of thyroid. LYMPHATIC: There is no palpable cervical, supraclavicular, axillary or inguinal adenopathy. RESPIRATORY: Inspiratory breath sounds are of normal intensity in all woodruff. No rales, wheezes or rhonchi. Expiratory phase is normal. CARDIOVASCULAR: Rhythm is regular. Normal intensity S1/S2. There is no gallop or murmur. ABDOMEN: The abdomen is nondistended. No organomegaly. The periumbilical tumor is firmer but not larger. Extremities: No swelling or edema. SKIN: No rash presently. 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 No focal motor weakness. MUSCULOSKELETAL: NNo muscle wasting. ASSESSMENT/PLAN: (C18.9) Malignant neoplasm of colon, unspecified part of colon (HCC) (primary encounter diagnosis) (C78.6, C80.1) Peritoneal carcinomatosis (HCC) (C78.7) Metastasis to liver (HCC) (L27.0) Drug rash Assessment: -KPS is 80-90%. -MMR proficient. [facility] sent previous testing that had been done at the time of his surgery 02/2016. Please see scanned document. -Tolerating treatment with current dose of Vectibix fairly well. He is at low dose and tends to get cumulative toxicity of rash and diarrhea. Plan: -Resume chemotherapy tomorrow. Dose reduce irinotecan and Vectibix further. -Olanzapine 5 mg at at bedtime. Zofran 8 mg every 6-8 hours throughout the day. -CT scan after 2 more cycles. -Continue potassium supplement. 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 -No unusual bleeding episodes. Plan: -Continue Xarelto. 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 Drug rash [L27.0] INVALID FOR* Malignant neoplasm of sigmoid colon (HCC) [C18.*INVALID FOR* Chronic saddle pulmonary embolism without acute*INVALID FOR* Encounter Status:Closed by GERALDO STONE DO on 10/2/18 PROGRESS Observed: 04/08/2018 Status: COMPLETED Source: [place] 10:21 AM [facility] REPOSITORY HNO ID: [id number] Author: Geraldo Stone Service: (none) Author Type: Physician Type: Progress Notes Filed: 04/08/2018 10:41 AM Note Text: Diagnosis: 1) Metastatic recurrence of stage III colon cancer. MSI stable. BRAF - A sequence change: c.1781A>G (p.Dct520Ras) was detected at approximately 48% allele proportion. [Reference sequence: (NM_[id number])]. KRAS - No variant detected [Reference?sequence: ([id number]_004985.4)]. NRAS - No variant detected [Reference sequence: (NM_[id number])]. Patient referred by ongoing management of metastatic colon cancer. HPI: The patient is a 62 yo male who developed abdominal pain around June 2014. His symptoms progressively worsened throughout the spring. He also began losing weight in the spring and this culminated in a hospitalization for what was thought to be diverticulitis in December 2014. He underwent a CT scan which was thought to demonstrated a left lower quadrant abscess. The drain was placed and he was treated with antibiotic treatment. Pain flared and a repeat CT scan on 01/24/15 demonstrated marked inflammatory phlegmonous changes of the proximal sigmoid colon. He therefore underwent a colonoscopy and sigmoid colon resection with lymph node dissection on 01/29/2015. The sigmoid colon was noted to be adherent to the anterior abdominal wall and small bowel. The final pathology demonstrated an invasive moderately differentiated adenocarcinoma, tumor extension through the colonic wall and involving the muscularis propria of the small bowel. The proximal margin resection had a small focus of tumor present at the serosal surface. None of 25 lymph nodes were involved. The patient went on to receive 12 cycles FOLFOX which she finished on 09/13/2015. Surveillance CT scan the abdomen and pelvis on January 06, 2016 demonstrated a small omental nodules. He was treated with 4 cycles of FOLFIRI and then underwent exploratory laparotomy, excision of peritoneal/liver/small bowel/mesenteric nodules, heated intraperitoneal chemotherapy (HIPEC) administration for 100 minutes, cystoscopy with bilateral ureteral stent placement on 05/22/2016. Pathology: 1. Small bowel peritoneal nodules, excision (A) - Organizing fibrous adhesions. - No evidence of malignancy. 2. Left liver nodule, biopsy (B) - Adenocarcinoma in liver, consistent with colonic primary. 3. Omentum, excision (C) - Infiltrating adenocarcinoma, consistent with colonic primary. 4. Left upper quadrant abdominal wall, biopsy (D) - Infiltrating adenocarcinoma, consistent with colonic primary. 5. Pelvic nodule and omentum, excision (E) - Infiltrating adenocarcinoma, consistent with colonic primary. - One lymph node, negative for malignancy (0/1). 6. Ileal nodule, excision (F) - Infiltrating adenocarcinoma, consistent with colonic primary. In end of July/first week of August this year he underwent repeat staging workup (CT and PET) which unfortunately showed liver metastasis and intra-abdominal metastases. He recently started back on chemotherapy with FOLFIRI and cetuximab. He's had 2 cycles to date. Previous therapy: 1) FOLFOX ?12 cycles completed 09/13/2015. 2) FOLFIRI x4 cycles. 3) Exploratory lap 04/2016 with HIPEC (mitomycin). Current therapy: 1) FOLFIRI (with Vectibix--side effects permitting). Interim history: Was seen urgently last week for complaints of diarrhea, nausea and weakness along with shortness of breath. His potassium was low. He had not been taking potassium supplement properly. He was given in office hydration and felt better. Weakness and shortness of breath improved significantly. He still having loose bowel movements but there is more formed to the stools. No signs of GI bleeding. Rash under good control. Tolerating Xarelto well with no unusual bleeding or unexplained bruising-verified. Symptoms from neuropathy remain stable-verified. PMH, medications and allergies as below personally reviewed by me today. Any changes documented in appropriate section. ROS: Constitutional: Denies episodes night sweats. Neuro: Denies HIDALGO, vertigo, dizziness and imbalance. HEENT: No recent change in voice, vision or hearing. Resp: Denies cough, wheeze and hemoptysis. CVS: Denies exertional chest pain, PND, orthopnea and LE edema. GI: Denies dysgeusia. : Denies dysuria or gross hematuria. No symptoms of bladder outlet obstruction. Endo: Denies hot flashes. Denies polyuria and polydipsia. Denies heat and cold intolerance. Musculoskeletal: Denies bone, back, joint and muscular pain. Derm: Denies jaundice and diffuse pruritis. Heme: See above. Psych: Normal mood. PHYSICAL EXAM: Vitals: Blood pressure 97/64, pulse 110, temperature 37.1 ?C (98.8 ?F), temperature source Temporal Artery, weight 87.1 kg (192 lb). Well-appearing and in no acute distress. EYES: Sclerae are anicteric bilaterally. ENT: Oral mucosa is unremarkable. There is no sign of thrush or mucositis. NECK: Supple. No enlargement of thyroid. LYMPHATIC: There is no palpable cervical, supraclavicular, axillary or inguinal adenopathy. RESPIRATORY: Inspiratory breath sounds are of normal intensity in all woodruff. No rales, wheezes or rhonchi. Expiratory phase is normal. CARDIOVASCULAR: Rhythm is regular. Normal intensity S1/S2. There is no gallop or murmur. ABDOMEN: The abdomen is nondistended. No organomegaly. The mass in the midline just above the umbilicus is smaller and softer.. Extremities: No swelling or edema. SKIN: He has dry, flaky skin as well as resolving acneiform rash of the face. 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 No focal motor weakness. MUSCULOSKELETAL: NNo muscle wasting. ASSESSMENT/PLAN: (C18.9) Malignant neoplasm of colon, unspecified part of colon (HCC) (primary encounter diagnosis) (C78.6, C80.1) Peritoneal carcinomatosis (HCC) (C78.7) Metastasis to liver (HCC) (L27.0) Drug rash Assessment: -KPS is 80-90%. -MMR proficient. [facility] sent previous testing that had been done at the time of his surgery 02/2016. Please see scanned document. -Tolerating treatment with current dose of Vectibix fairly well. He is at low dose and tends to get cumulative toxicity of rash and diarrhea. -Continued response to Vectibix when added to chemotherapy as evidenced by physical exam. -We again discussed our schedule of dosing. Given the severity of diarrhea and hypokalemia, a two-week break from treatment is warranted. He agrees. Restart treatment first week of April. Towards the end of May, he'll hold on chemotherapy for a trip to [facility]. Plan: -Cancel chemotherapy tomorrow and resume in 2 weeks. -Olanzapine 5 mg at at bedtime. Zofran 8 mg every 6-8 hours throughout the day. -CT scan after 2-3 more cycles. -Continue potassium supplement. 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 -No unusual bleeding episodes. Plan: -Continue Xarelto. Geraldo Stone DO CNOVSP Observed: 04/08/2018 Status: COMPLETED Source: [place] 10:10 AM [facility] REPOSITORY Visit (SP) Office ([place]) BECCA MAGANA ([id number]) 1955 M Date Time Provider Department 04/08/18 10:10 AM GERALDO STONE During your visit today, we recorded the following information about you: Temperature Pulse Blood pressure Weight 98.8 degrees 110/minute 97/64 87.1 kg Daisy Verduzco LPN 04/08/2018 10:27 AM Signed Est patient. Discuss recent labs, treatment Sunday. Daisy Stone DO 04/08/2018 10:41 AM Signed Diagnosis: 1) Metastatic recurrence of stage III colon cancer. MSI stable. BRAF - A sequence change: c.1781A>G (p.Ois299Pgz) was detected at approximately 48% allele proportion. [Reference sequence: (NM_[id number])]. KRAS - No variant detected [Reference?sequence: (NM_004985.4)]. NRAS - No variant detected [Reference sequence: (NM_[id number])]. Patient referred by ongoing management of metastatic colon cancer. HPI: The patient is a 62 yo male who developed abdominal pain around June 2014. His symptoms progressively worsened throughout the spring. He also began losing weight in the spring and this culminated in a hospitalization for what was thought to be diverticulitis in December 2014. He underwent a CT scan which was thought to demonstrated a left lower quadrant abscess. The drain was placed and he was treated with antibiotic treatment. Pain flared and a repeat CT scan on 01/24/15 demonstrated marked inflammatory phlegmonous changes of the proximal sigmoid colon. He therefore underwent a colonoscopy and sigmoid colon resection with lymph node dissection on 01/29/2015. The sigmoid colon was noted to be adherent to the anterior abdominal wall and small bowel. The final pathology demonstrated an invasive moderately differentiated adenocarcinoma, tumor extension through the colonic wall and involving the muscularis propria of the small bowel. The proximal margin resection had a small focus of tumor present at the serosal surface. None of 25 lymph nodes were involved. The patient went on to receive 12 cycles FOLFOX which she finished on 09/13/2015. Surveillance CT scan the abdomen and pelvis on January 06, 2016 demonstrated a small omental nodules. He was treated with 4 cycles of FOLFIRI and then underwent exploratory laparotomy, excision of peritoneal/liver/small bowel/mesenteric nodules, heated intraperitoneal chemotherapy (HIPEC) administration for 100 minutes, cystoscopy with bilateral ureteral stent placement on 05/22/2016. Pathology: 1. Small bowel peritoneal nodules, excision (A) - Organizing fibrous adhesions. - No evidence of malignancy. 2. Left liver nodule, biopsy (B) - Adenocarcinoma in liver, consistent with colonic primary. 3. Omentum, excision (C) - Infiltrating adenocarcinoma, consistent with colonic primary. 4. Left upper quadrant abdominal wall, biopsy (D) - Infiltrating adenocarcinoma, consistent with colonic primary. 5. Pelvic nodule and omentum, excision (E) - Infiltrating adenocarcinoma, consistent with colonic primary. - One lymph node, negative for malignancy (0/1). 6. Ileal nodule, excision (F) - Infiltrating adenocarcinoma, consistent with colonic primary. In end of July/first week of August this year he underwent repeat staging workup (CT and PET) which unfortunately showed liver metastasis and intra-abdominal metastases. He recently started back on chemotherapy with FOLFIRI and cetuximab. He's had 2 cycles to date. Previous therapy: 1) FOLFOX ?12 cycles completed 09/13/2015. 2) FOLFIRI x4 cycles. 3) Exploratory lap 04/2016 with HIPEC (mitomycin). Current therapy: 1) FOLFIRI (with Vectibix--side effects permitting). Interim history: Was seen urgently last week for complaints of diarrhea, nausea and weakness along with shortness of breath. His potassium was low. He had not been taking potassium supplement properly. He was given in office hydration and felt better. Weakness and shortness of breath improved significantly. He still having loose bowel movements but there is more formed to the stools. No signs of GI bleeding. Rash under good control. Tolerating Xarelto well with no unusual bleeding or unexplained bruising-verified. Symptoms from neuropathy remain stable-verified. PMH, medications and allergies as below personally reviewed by me today. Any changes documented in appropriate section. ROS: Constitutional: Denies episodes night sweats. Neuro: Denies HIDALGO, vertigo, dizziness and imbalance. HEENT: No recent change in voice, vision or hearing. Resp: Denies cough, wheeze and hemoptysis. CVS: Denies exertional chest pain, PND, orthopnea and LE edema. GI: Denies dysgeusia. : Denies dysuria or gross hematuria. No symptoms of bladder outlet obstruction. Endo: Denies hot flashes. Denies polyuria and polydipsia. Denies heat and cold intolerance. Musculoskeletal: Denies bone, back, joint and muscular pain. Derm: Denies jaundice and diffuse pruritis. Heme: See above. Psych: Normal mood. PHYSICAL EXAM: Vitals: Blood pressure 97/64, pulse 110, temperature 37.1 ?C (98.8 ?F), temperature source Temporal Artery, weight 87.1 kg (192 lb). Well-appearing and in no acute distress. EYES: Sclerae are anicteric bilaterally. ENT: Oral mucosa is unremarkable. There is no sign of thrush or mucositis. NECK: Supple. No enlargement of thyroid. LYMPHATIC: There is no palpable cervical, supraclavicular, axillary or inguinal adenopathy. RESPIRATORY: Inspiratory breath sounds are of normal intensity in all woodruff. No rales, wheezes or rhonchi. Expiratory phase is normal. CARDIOVASCULAR: Rhythm is regular. Normal intensity S1/S2. There is no gallop or murmur. ABDOMEN: The abdomen is nondistended. No organomegaly. The mass in the midline just above the umbilicus is smaller and softer.. Extremities: No swelling or edema. SKIN: He has dry, flaky skin as well as resolving acneiform rash of the face. 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 No focal motor weakness. MUSCULOSKELETAL: NNo muscle wasting. ASSESSMENT/PLAN: (C18.9) Malignant neoplasm of colon, unspecified part of colon (HCC) (primary encounter diagnosis) (C78.6, C80.1) Peritoneal carcinomatosis (HCC) (C78.7) Metastasis to liver (HCC) (L27.0) Drug rash Assessment: -KPS is 80-90%. -MMR proficient. [facility] sent previous testing that had been done at the time of his surgery 02/2016. Please see scanned document. -Tolerating treatment with current dose of Vectibix fairly well. He is at low dose and tends to get cumulative toxicity of rash and diarrhea. -Continued response to Vectibix when added to chemotherapy as evidenced by physical exam. -We again discussed our schedule of dosing. Given the severity of diarrhea and hypokalemia, a two-week break from treatment is warranted. He agrees. Restart treatment first week of April. Towards the end of May, he'll hold on chemotherapy for a trip to [facility]. Plan: -Cancel chemotherapy tomorrow and resume in 2 weeks. -Olanzapine 5 mg at at bedtime. Zofran 8 mg every 6-8 hours throughout the day. -CT scan after 2-3 more cycles. -Continue potassium supplement. 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 -No unusual bleeding episodes. Plan: -Continue Xarelto. Geraldo Stone DO Referring Provider: GERALDO STONE [[id number]] Allergies As of Date: 04/08/2018 (No Known Allergies) Date Reviewed: 04/08/2018 Reviewed by: Daisy Verduzco LPN - Fully Assessed Reason for Visit: Established Patient [175] Primary Visit Diagnosis:Malignant neoplasm of sigmoid colon (HCC) [C18.7] Other Visit Diagnoses:Metastasis to liver (HCC) [C78.7] Peritoneal carcinomatosis (HCC) [C78.6, C80.1] Chronic saddle pulmonary embolism without acute cor pulmonale (HCC) [I26.92] Follow-up and Disposition History Recorded Prescriptions as of 04/08/2018 Sig: ONDANSETRON HCL 8 MG TABLET Take 1 tablet by mouth every * MINOCYCLINE 100 MG CAPSULE Take 1 capsule by mouth twice* DEXAMETHASONE 4 MG TABLET Take 1 tablet by mouth twice * POTASSIUM CHLORIDE ER 20 MEQ * Take 1 tablet by mouth three * RIVAROXABAN 20 MG TABLET Take 1 tablet by mouth daily * Medication notes this encounter POTASSIUM CHLORIDE ER 20 MEQ TABLET,EXTENDED RELEASE(PART/CRYST) >> Daisy Verduzco LPN 04/08/2018 9:47 AM >> LUBA MELENDEZ DAISY SunApr 08, 2018 9:47 AM Taking three times a day Problem List As Of Date 04/08/2018 Noted Resolved Colon cancer (HCC) [C18.9] 08/21/2017 Peritoneal carcinomatosis (HCC) [C78.6, C80.1] INVALID FOR* Metastasis to liver (HCC) [C78.7] INVALID FOR* More... Drug rash [L27.0] INVALID FOR* Malignant neoplasm of sigmoid colon (HCC) [C18.*INVALID FOR* Chronic saddle pulmonary embolism without acute*INVALID FOR* Visit Notes: >> Daisy Verduzco LPN SunApr 08, 2018 9:48 AM Status: Signed Est patient. Discuss recent labs, treatment Sunday. Daisy Verduzco LPN Encounter Status:Closed by GERALDO STONE DO on 04/08/18 [place] ABS GR + CBC Collected: 04/08/2018 Status: F Source: [place] 9:47 AM [facility] REPOSITORY TYPE CODE TESTS RESULT OUT OF REFERENCE UNITS RANGE LAB WWBC 3.70-11.00 k/uL Low [place] WBC 3.43 LAB WRBC 4.20-6.00 m/uL Low [place] RBC 4.05 LAB WHGB 13.0-17.0 g/dL Low [place] Hemoglobin 12.1 LAB WHCT 39.0-51.0 % Low [place] Hematocrit 35.6 LAB WMCV 80.0-100.0 fL [place] MCV 87.9 LAB WMCH 26.0-34.0 pg [place] MCH 29.9 LAB WMCHC 30.5-36.0 g/dL [place] MCHC 34.0 LAB WRDW 11.5-15.0 % [place] RDW 15.0 LAB WPLT 150-400 k/uL Low [place] Platelet Cnt 118 LAB WMPV 9.0-12.7 fL [place] MPV 9.2 Result Comment: Test performed at: [facility] [place], [address] [place] [address]. LAB ABGRAN 1.45-7.50 k/uL Absol Gran 1.73 Count [place] ISTAT BMP Collected: 04/08/2018 Status: F Source: [place] 9:47 AM [facility] REPOSITORY TYPE CODE TESTS RESULT OUT OF REFERENCE UNITS RANGE LAB NAWB 135-146 mmol/L Sodium, Whole 141 Bld LAB K1WB 3.5-5.0 mmol/L Potassium,Who 3.7 le Bld LAB CLWB 98-110 mmol/L Chloride, 105 Whole Bld LAB ICAWB 1.08-1.30 mmol/L Ionized 1.26 Calcium, WB Result Comment: Please note: This value represents ionized calcium not total calcium. LAB CO2WB 23-32 mmol/L TCO2, Whole 23 Blood LAB GLUWB 65-100 mg/dL High Glucose, 105 Whole Bld LAB BUNWB 10-25 mg/dL BUN, Whole 13 Blood LAB BCRET 0.70-1.40 mg/dL Creatinine,Wh 1.10 ole Bld LAB AGAPWB 0-15 mmol/L Anion Gap, 13 Whole Bld LAB GFRAA eGFR- >60 Amer. LAB GFRNAA . eGFR-All >60 Other Races Result Comment: eGFR (Estimated GFR) Units of measure: mL/min/1.73 meters squared eGFR is derived from the reexpressed MDRD Study equation using the following parameters: serum creatinine, age, gender and race. The creatinine assay has been calibrated to be traceable to IDMS. An eGFR <60 mL/min/1.73m2 for >3 months is consistent with chronic kidney disease. Refer to KDOQI guidelines for clinical interpretation. In patients with unstable renal function, e.g. those with acute kidney injury, the eGFR may not accurately reflect actual GFR. HEPATIC FUNCTN PANEL Collected: 04/08/2018 Status: F Source: [place] 9:47 AM [facility] REPOSITORY TYPE CODE TESTS RESULT OUT OF REFERENCE UNITS RANGE LAB ALB 3.9-4.9 g/dL Albumin 4.0 LAB TBIL 0.2-1.3 mg/dL Bilirubin, Total 0.4 LAB CBIL <0.2 mg/dL Bilirubin,Conjuga <0.2 [place] LAB ALKP 36-108 U/L Alkaline Phosphatase 63 LAB AST 14-40 U/L AST 24 LAB ALT 10-54 U/L ALT 35 LAB TP 6.3-8.0 g/dL Low Protein, Total 5.9 Performed By: #### HFP #### [facility] [address] [place], [place] [address] CNOVSP Observed: 04/05/2018 Status: COMPLETED Source: [place] 9:30 AM [facility] REPOSITORY Visit (SP) Office ([place]) BECCA MAGANA ([id number]) 1955 M Date Time Provider Department 04/05/18 9:30 AM TATIANA CARTAGENA (LEIGHA) [place] During your visit today, we recorded the following information about you: Temperature Pulse Blood pressure Weight 98.2 degrees 69/minute 100/72 85.3 kg Tatiana Cartagena APRN.CNP 04/05/2018 11:03 AM Signed Chief Complaint Patient presents with: Established Patient HPI: Becca [place] is a 62 year old male who presents here today for complaints of diarrhea/nausea/fatigue-see phone note. Diagnosis: 1) Metastatic recurrence of stage III colon cancer. MSI stable. BRAF - A sequence change: c.1781A>G (p.[id number]) was detected at approximately 48% allele proportion. [Reference sequence: (NM_[id number])]. KRAS - No variant detected [Reference?sequence: (NM_004985.4)]. NRAS - No variant detected [Reference sequence: (NM_[id number])]. ? Per Dr. Stone's previous note: H/o developed abdominal pain around June 2014. His symptoms progressively worsened throughout the spring. He also began losing weight in the spring and this culminated in a hospitalization for what was thought to be diverticulitis in December 2014. He underwent a CT scan which was thought to demonstrated a left lower quadrant abscess. The drain was placed and he was treated with antibiotic treatment. Pain flared and a repeat CT scan on 01/24/15 demonstrated marked inflammatory phlegmonous changes of the proximal sigmoid colon. He therefore underwent a colonoscopy and sigmoid colon resection with lymph node dissection on 01/29/2015. The sigmoid colon was noted to be adherent to the anterior abdominal wall and small bowel. The final pathology demonstrated an invasive moderately differentiated adenocarcinoma, tumor extension through the colonic wall and involving the muscularis propria of the small bowel. The proximal margin resection had a small focus of tumor present at the serosal surface. None of 25 lymph nodes were involved. The patient went on to receive 12 cycles FOLFOX which she finished on 09/13/2015. ? Surveillance CT scan the abdomen and pelvis on January 06, 2016 demonstrated a small omental nodules. He was treated with 4 cycles of FOLFIRI and then underwent exploratory laparotomy, excision of peritoneal/liver/small bowel/mesenteric nodules, heated intraperitoneal chemotherapy (HIPEC) administration for 100 minutes, cystoscopy with bilateral ureteral stent placement on 05/22/2016. ? Pathology: 1. Small bowel peritoneal nodules, excision (A) - Organizing fibrous adhesions. - No evidence of malignancy. 2. Left liver nodule, biopsy (B) - Adenocarcinoma in liver, consistent with colonic primary. 3. Omentum, excision (C) - Infiltrating adenocarcinoma, consistent with colonic primary. 4. Left upper quadrant abdominal wall, biopsy (D) - Infiltrating adenocarcinoma, consistent with colonic primary. 5. Pelvic nodule and omentum, excision (E) - Infiltrating adenocarcinoma, consistent with colonic primary. - One lymph node, negative for malignancy (0/1). 6. Ileal nodule, excision (F) - Infiltrating adenocarcinoma, consistent with colonic primary. ? In end of July/first week of August this year he underwent repeat staging workup (CT and PET) which unfortunately showed liver metastasis and intra-abdominal metastases. ? He recently started back on chemotherapy with FOLFIRI and cetuximab. He's had 2 cycles to date. ? Previous therapy: 1) FOLFOX ?12 cycles completed 09/13/2015. 2) FOLFIRI x4 cycles. 3) Exploratory lap 04/2016 with HIPEC (mitomycin). ? Current therapy: 1) FOLFIRI (with Vectibix--side effects permitting). ? Diarrhea started on Sunday every time I ate. had solid food yesterday morning and eggs and toast went right through me so I've tea and jello the rest of the day. No diarrhea since yesterday morning. I don't feel obstructed. I'm just so weak. I'm so short of breathe and weak. It's been getting worse. If we can't do this every 2 weeks then I'm willing not to. I'm queasy. Pt. has not been taking zofran or zyprexa. He took dex for 4 days in a row and that helped. Pt. admits to only taking K once daily-not as prescribed. Appetite:I would eat if I knew it would stay down. Energy level:none Denies fevers. Resp:denies cough, +sob with steps Cardiac:denies chest pain/palpitations GI:+abd pain it hasn't been too bad, +nausea, denies vomiting, diarrhea as above-no diarrhea since yesterday morning :denies dysuria/hematuria Extrem:denies pain elsewhere Neuro:neuropathy stable Skin:rash from vectibix stable Heme:I have seen a little bit of blood in the diarrhea The ROS is otherwise negative. Past medical history, appointments, medications, allergies reviewed. No changes. EXAM: BP 100/72 Pulse 69 Temp 36.8 ?C (98.2 ?F) (Oral) Wt 85.3 kg (188 lb) BMI 26.41 kg/m? APPEARANCE Well appearing, alert, in no acute distress, well- hydrated, well nourished. HEART RRR with normal S1 and S2, no murmurs LUNG clear to auscultation LYMPH NODES No cervical lymphadenopathy, No supraclavicular lymphadenopathy and No axillary lymphadenopathy. ABDOMEN bowel sounds normoactive, no bruits, soft, non-tender, non-distended, mass smaller/softer to upper abd EXTREMITIES No edema NEURO Awake, alert and oriented x 3, Normal gait and No involuntary motions. SKIN Skin color, texture, turgor normal, no suspicious rashes or lesions LABS: Component Latest Ref Rng AND Units 03/11/2018 03/19/2018 04/05/2018 WBC, [place] 3.70 - 11.00 k/uL 4.34 5.80 3.62 (L) RBC, [place] 4.20 - 6.00 m/uL 3.67 (L) 4.05 (L) 4.39 Hemoglobin, [place] 13.0 - 17.0 g/dL 11.1 (L) 12.2 (L) 13.2 Hematocrit, [place] 39.0 - 51.0 % 33.4 (L) 35.6 (L) 37.6 (L) MCV, [place] 80.0 - 100.0 fL 91.0 87.9 85.6 MCH, [place] 26.0 - 34.0 pg 30.2 30.1 30.1 MCHC, [place] 30.5 - 36.0 g/dL 33.2 34.3 35.1 RDW, [place] 11.5 - 15.0 % 13.7 13.0 14.3 Platelet Cnt, [place] 150 - 400 k/uL 173 137 (L) 156 MPV, [place] 9.0 - 12.7 fL 9.2 8.9 (L) 9.7 Absol Gran Count 1.45 - 7.50 k/uL 2.43 3.11 1.82 Component Latest Ref Rng AND Units 03/19/2018 04/05/2018 Sodium 128 - 145 mmol/L 135 137 Potassium 3.6 - 5.1 mmol/L 3.2 (L) 2.9 (L) Chloride 98 - 108 mmol/L 102 103 CO2 18 - 33 mmol/L 26 25 Creatinine 0.6 - 1.2 mg/dL 0.80 0.90 BUN 7 - 22 mg/dL 26 (H) 18 Glucose 73 - 118 mg/dL 103 137 (H) Calcium 8.0 - 10.3 mg/dL 9.7 9.3 Magnesium 1.6 - 2.3 mg/dL 1.7 1.8 Anion Gap 9 - 18 mmol/L 7 (L) 9 eGFR- >60 >60 eGFR-All Other Races . >60 >60 RADIOLOGY: CXR/Abd series 04/05/18: Pending Reviewed with Dr. Stone. ASSESSMENT/PLAN: 1. Malignant neoplasm of sigmoid colon (HCC) - ICD9: 153.3, ICD10: C18.7 (primary diagnosis) 2. Metastasis to liver (HCC) - ICD9: 197.7, ICD10: C78.7 3. Peritoneal carcinomatosis (HCC) - ICD9: 197.6, 199.1, ICD10: C78.6, C80.1 4. Malignant neoplasm of colon, unspecified part of colon (HCC) - ICD9: 153.9, ICD10: C18.9 5. Nausea - ICD9: 787.02, ICD10: R11.0 6. Hypokalemia - ICD9: 276.8, ICD10: E87.6 - Diarrhea stopped with clear liquids. Nausea persists. - Reviewed labs/xrays with pt. and spouse. - Encouraged pt. to take zofran and Kdur as prescribed. Rx zofran. - Discussed with pt. that he will need to monitor his BM's and treat accordingly with miralax. - IV NS today with potassium-See [place] orders. - Follow up as scheduled. - Pt. aware to call office with any questions/concerns. The patient indicates understanding of these issues and agrees with the plan. Discussed case with Dr. Stone who agrees with treatment plan. Tatiana Cartagena APRN.LEIGHA Verduzco LPN 04/05/2018 9:09 AM Signed Est patient. Discuss recent labs and xray. C/O diarrhea since Sunday whenever he eats. Also c/o SOB. Daisy Verduzco LPN Referring Provider: GERALDO STONE [[id number]] Allergies As of Date: 04/05/2018 (No Known Allergies) Date Reviewed: 04/05/2018 Reviewed by: Tatiana (Health Navigator) Mitzi - Fully Assessed Reason for Visit: Established Patient [[id number]] Primary Visit Diagnosis:Malignant neoplasm of sigmoid colon (HCC) [C18.7] Other Visit Diagnoses:Metastasis to liver (HCC) [C78.7] Peritoneal carcinomatosis (HCC) [C78.6, C80.1] Malignant neoplasm of colon, unspecified part of colon (HCC) [C18.9] Nausea [R11.0] Hypokalemia [E87.6] Order(s):ROLANDO ABS GRAN CT + CBC [SQWAGCBC] Order #: [id number] FUTURE ondansetron (ZOFRAN) 8 mg tabletTake 1 tablet by mouth every 8 hours as needed for Nausea/Vomiting.Disp: 30 tabletRfl: 2 Follow-up and Disposition History Recorded Prescriptions as of 04/05/2018 Sig: ONDANSETRON HCL 8 MG TABLET Take 1 tablet by mouth every * MINOCYCLINE 100 MG CAPSULE Take 1 capsule by mouth twice* DEXAMETHASONE 4 MG TABLET Take 1 tablet by mouth twice * POTASSIUM CHLORIDE ER 20 MEQ * Take 1 tablet by mouth three * RIVAROXABAN 20 MG TABLET Take 1 tablet by mouth daily * Problem List As Of Date 04/05/2018 Noted Resolved Colon cancer (HCC) [C18.9] 08/21/2017 Peritoneal carcinomatosis (HCC) [C78.6, C80.1] INVALID FOR* Metastasis to liver (HCC) [C78.7] INVALID FOR* More... Drug rash [L27.0] INVALID FOR* Malignant neoplasm of sigmoid colon (HCC) [C18.*INVALID FOR* Chronic saddle pulmonary embolism without acute*INVALID FOR* Visit Notes: >> Daisy uLba MELENDEZ SunApr 05, 2018 9:06 AM Status: Signed Est patient. Discuss recent labs and xray. C/O diarrhea since Sunday whenever he eats. Also c/o SOB. Daisy Luba MELENDEZ Encounter Status:Closed by TATIANA CARTAGENA CNP on 04/05/18 ROLANDO ABS GR + CBC Collected: 04/05/2018 Status: F Source: [place] 9:10 AM [facility] REPOSITORY TYPE CODE TESTS RESULT OUT OF REFERENCE UNITS RANGE LAB WWBC 3.70-11.00 k/uL Low [place] WBC 3.62 LAB WRBC 4.20-6.00 m/uL [place] RBC 4.39 LAB WHGB 13.0-17.0 g/dL [place] Hemoglobin 13.2 LAB WHCT 39.0-51.0 % Low [place] Hematocrit 37.6 LAB WMCV 80.0-100.0 fL [place] MCV 85.6 LAB WMCH 26.0-34.0 pg [place] MCH 30.1 LAB WMCHC 30.5-36.0 g/dL [place] MCHC 35.1 LAB WRDW 11.5-15.0 % [place] RDW 14.3 LAB WPLT 150-400 k/uL [place] Platelet Cnt 156 LAB WMPV 9.0-12.7 fL [place] MPV 9.7 Result Comment: Test performed at: [facility], [address] [place] [address]. LAB ABGRAN 1.45-7.50 k/uL Absol Gran 1.82 Count BMP PLUS [facility]HC Collected: 04/05/2018 Status: F Source: [place] 9:06 AM [facility] REPOSITORY TYPE CODE TESTS RESULT OUT OF REFERENCE UNITS RANGE LAB NA 128-145 mmol/L Sodium 137 LAB K 3.6-5.1 mmol/L Low Potassium 2.9 Result Comment: REPEAT AND VERIFIED LAB CL 98-108 mmol/L Chloride 103 LAB CO2 18-33 mmol/L CO2 25 LAB CRET 0.6-1.2 mg/dL Creatinine 0.90 LAB BUN 7-22 mg/dL BUN 18 LAB GLU 73-118 mg/dL Glucose High 137 LAB CA 8.0-10.3 mg/dL Calcium, Total 9.3 LAB MG 1.6-2.3 mg/dL Magnesium 1.8 LAB AGAP 9-18 mmol/L Anion Gap 9 LAB GFRAA eGFR- Amer. >60 LAB GFRNAA . eGFR-All Other Races >60 Result Comment: eGFR (Estimated GFR) Units of measure: mL/min/1.73 meters squared eGFR is derived from the reexpressed MDRD Study equation using the following parameters: serum creatinine, age, gender and race. The creatinine assay has been calibrated to be traceable to IDMS. An eGFR <60 mL/min/1.73m2 for >3 months is consistent with chronic kidney disease. Refer to KDOQI guidelines for clinical interpretation. In patients with unstable renal function, e.g. those with acute kidney injury, the eGFR may not accurately reflect actual GFR. PROGRESS Observed: 04/05/2018 Status: COMPLETED Source: [place] 9:03 AM [facility] REPOSITORY O ID: [id number] Author: Tatiana Cartagena Service: (none) Author Type: Nurse Practitioner Type: Progress Notes Filed: 04/05/2018 11:03 AM Note Text: Chief Complaint Patient presents with: Established Patient HPI: Becca Magana is a 62 year old male who presents here today for complaints of diarrhea/nausea/fatigue-see phone note. Diagnosis: 1) Metastatic recurrence of stage III colon cancer. MSI stable. BRAF - A sequence change: c.1781A>G ([id number].[id number]) was detected at approximately 48% allele proportion. [Reference sequence: (NM_004333.4)]. KRAS - No variant detected [Reference?sequence: ([id number]_004985.4)]. NRAS - No variant detected [Reference sequence: (NM_002524.4)]. ? Per Dr. Stone's previous note: H/o developed abdominal pain around June 2014. His symptoms progressively worsened throughout the spring. He also began losing weight in the spring and this culminated in a hospitalization for what was thought to be diverticulitis in December 2014. He underwent a CT scan which was thought to demonstrated a left lower quadrant abscess. The drain was placed and he was treated with antibiotic treatment. Pain flared and a repeat CT scan on 01/24/15 demonstrated marked inflammatory phlegmonous changes of the proximal sigmoid colon. He therefore underwent a colonoscopy and sigmoid colon resection with lymph node dissection on 01/29/2015. The sigmoid colon was noted to be adherent to the anterior abdominal wall and small bowel. The final pathology demonstrated an invasive moderately differentiated adenocarcinoma, tumor extension through the colonic wall and involving the muscularis propria of the small bowel. The proximal margin resection had a small focus of tumor present at the serosal surface. None of 25 lymph nodes were involved. The patient went on to receive 12 cycles FOLFOX which she finished on 09/13/2015. ? Surveillance CT scan the abdomen and pelvis on January 06, 2016 demonstrated a small omental nodules. He was treated with 4 cycles of FOLFIRI and then underwent exploratory laparotomy, excision of peritoneal/liver/small bowel/mesenteric nodules, heated intraperitoneal chemotherapy (HIPEC) administration for 100 minutes, cystoscopy with bilateral ureteral stent placement on 05/22/2016. ? Pathology: 1. Small bowel peritoneal nodules, excision (A) - Organizing fibrous adhesions. - No evidence of malignancy. 2. Left liver nodule, biopsy (B) - Adenocarcinoma in liver, consistent with colonic primary. 3. Omentum, excision (C) - Infiltrating adenocarcinoma, consistent with colonic primary. 4. Left upper quadrant abdominal wall, biopsy (D) - Infiltrating adenocarcinoma, consistent with colonic primary. 5. Pelvic nodule and omentum, excision (E) - Infiltrating adenocarcinoma, consistent with colonic primary. - One lymph node, negative for malignancy (0/1). 6. Ileal nodule, excision (F) - Infiltrating adenocarcinoma, consistent with colonic primary. ? In end of July/first week of August this year he underwent repeat staging workup (CT and PET) which unfortunately showed liver metastasis and intra-abdominal metastases. ? He recently started back on chemotherapy with FOLFIRI and cetuximab. He's had 2 cycles to date. ? Previous therapy: 1) FOLFOX ?12 cycles completed 09/13/2015. 2) FOLFIRI x4 cycles. 3) Exploratory lap 04/2016 with HIPEC (mitomycin). ? Current therapy: 1) FOLFIRI (with Vectibix--side effects permitting). ? Diarrhea started on Sunday every time I ate. had solid food yesterday morning and eggs and toast went right through me so I've tea and jello the rest of the day. No diarrhea since yesterday morning. I don't feel obstructed. I'm just so weak. I'm so short of breathe and weak. It's been getting worse. If we can't do this every 2 weeks then I'm willing not to. I'm queasy. Pt. has not been taking zofran or zyprexa. He took dex for 4 days in a row and that helped. Pt. admits to only taking K once daily-not as prescribed. Appetite:I would eat if I knew it would stay down. Energy level:none Denies fevers. Resp:denies cough, +sob with steps Cardiac:denies chest pain/palpitations GI:+abd pain it hasn't been too bad, +nausea, denies vomiting, diarrhea as above-no diarrhea since yesterday morning :denies dysuria/hematuria Extrem:denies pain elsewhere Neuro:neuropathy stable Skin:rash from vectibix stable Heme:I have seen a little bit of blood in the diarrhea The ROS is otherwise negative. Past medical history, appointments, medications, allergies reviewed. No changes. EXAM: BP 100/72 Pulse 69 Temp 36.8 ?C (98.2 ?F) (Oral) Wt 85.3 kg (188 lb) BMI 26.41 kg/m? APPEARANCE Well appearing, alert, in no acute distress, well-hydrated, well nourished. HEART RRR with normal S1 and S2, no murmurs LUNG clear to auscultation LYMPH NODES No cervical lymphadenopathy, No supraclavicular lymphadenopathy and No axillary lymphadenopathy. ABDOMEN bowel sounds normoactive, no bruits, soft, non-tender, non-distended, mass smaller/softer to upper abd EXTREMITIES No edema NEURO Awake, alert and oriented x 3, Normal gait and No involuntary motions. SKIN Skin color, texture, turgor normal, no suspicious rashes or lesions LABS: Component Latest Ref Rng AND Units 03/11/2018 03/19/2018 04/05/2018 WBC, [place] 3.70 - 11.00 k/uL 4.34 5.80 3.62 (L) RBC, [place] 4.20 - 6.00 m/uL 3.67 (L) 4.05 (L) 4.39 Hemoglobin, [place] 13.0 - 17.0 g/dL 11.1 (L) 12.2 (L) 13.2 Hematocrit, [place] 39.0 - 51.0 % 33.4 (L) 35.6 (L) 37.6 (L) MCV, [place] 80.0 - 100.0 fL 91.0 87.9 85.6 MCH, [place] 26.0 - 34.0 pg 30.2 30.1 30.1 MCHC, [place] 30.5 - 36.0 g/dL 33.2 34.3 35.1 RDW, [place] 11.5 - 15.0 % 13.7 13.0 14.3 Platelet Cnt, [place] 150 - 400 k/uL 173 137 (L) 156 MPV, [place] 9.0 - 12.7 fL 9.2 8.9 (L) 9.7 Absol Gran Count 1.45 - 7.50 k/uL 2.43 3.11 1.82 Component Latest Ref Rng AND Units 03/19/2018 04/05/2018 Sodium 128 - 145 mmol/L 135 137 Potassium 3.6 - 5.1 mmol/L 3.2 (L) 2.9 (L) Chloride 98 - 108 mmol/L 102 103 CO2 18 - 33 mmol/L 26 25 Creatinine 0.6 - 1.2 mg/dL 0.80 0.90 BUN 7 - 22 mg/dL 26 (H) 18 Glucose 73 - 118 mg/dL 103 137 (H) Calcium 8.0 - 10.3 mg/dL 9.7 9.3 Magnesium 1.6 - 2.3 mg/dL 1.7 1.8 Anion Gap 9 - 18 mmol/L 7 (L) 9 eGFR- >60 >60 eGFR-All Other Races . >60 >60 RADIOLOGY: CXR/Abd series 04/05/18: Pending Reviewed with Dr. Stone. ASSESSMENT/PLAN: 1. Malignant neoplasm of sigmoid colon (HCC) - ICD9: 153.3, ICD10: C18.7 (primary diagnosis) 2. Metastasis to liver (HCC) - ICD9: 197.7, ICD10: C78.7 3. Peritoneal carcinomatosis (HCC) - ICD9: 197.6, 199.1, ICD10: C78.6, C80.1 4. Malignant neoplasm of colon, unspecified part of colon (HCC) - ICD9: 153.9, ICD10: C18.9 5. Nausea - ICD9: 787.02, ICD10: R11.0 6. Hypokalemia - ICD9: 276.8, ICD10: E87.6 - Diarrhea stopped with clear liquids. Nausea persists. - Reviewed labs/xrays with pt. and spouse. - Encouraged pt. to take zofran and Kdur as prescribed. Rx zofran. - Discussed with pt. that he will need to monitor his BM's and treat accordingly with miralax. - IV NS today with potassium-See [place] orders. - Follow up as scheduled. - Pt. aware to call office with any questions/concerns. The patient indicates understanding of these issues and agrees with the plan. Discussed case with Dr. Stone who agrees with treatment plan. Tatiana Cartagena APRN.STRUCTURAL WORKER PROGRESS Observed: 04/05/2018 Status: COMPLETED Source: [place] 8:56 AM [facility] REPOSITORY HNO ID: [id number] Author: CHITRA Mcmahon (Ct) Service: (none) Author Type: Clinical Deburring And Tooling Machine Operator Type: Progress Notes Filed: 04/05/2018 8:57 AM Note Text: Radiology Service Progress Note PATIENT NAME: Becca Magana DATE OF SERVICE: April 05, 2018 TIME: 8:56 AM PATIENT IDENTITY VERIFICATION COMPLETED USING TWO (2) METHODS: Patient confirmed name verbally and Date of . PATIENT GENDER DATA: Male PATIENT RELEVANT IMPLANT DATA REVIEWED: Not Applicable RADIOLOGY DEPARTMENT: General X-ray: Exam(s) Completed: Chest X-Ray Abdomen X-Ray Abdomen PERIPHERAL IV DATA: Not applicable SIGNED BY: CHITRA Mcmahon April 05, 2018 8:56 AM XR ABD 2V SUPINE W Observed: 04/05/2018 Status: F Source: [place] UPR//CTL 8:56 AM [facility] REPOSITORY * * *Final Report* * * DATE OF EXAM: Apr 05 2018 8:56AM [id number] - XR ABD 2V SUPINE W UPR//CTL / PROCEDURE REASON: multiple diagnoses * * * * Physician Interpretation * * * * EXAMINATION: XR ABD 2V SUP[place] W UPR/DECUB/CTL HISTORY: HX OF COLON CONCER Malignant neoplasm of sigmoid colon Secondary malignant neoplasm of retroperitoneum and peritoneum Malignant (primary) neoplasm, unspecified Nausea with vomiting, unspecified. TECHNIQUE: XR ABD 2V SUPINE W UPR/DECUB/CTL Laterality: NOT APPLICABLE Number of different views (projections): 1, CHEST, 2 ABDOMEN M: XB_1 COMPARISON: Comparison is made to an outside abdomen series from 24 February 2018 RESULT: 2 Supine and a single erect views of the abdomen demonstrate a nonobstructive bowel gas pattern with fecal retention. The erect view... The hemidiaphragms but on the corresponding chest radiograph there is no evidence of subdiaphragmatic free air. The soft tissues and bony structures are unremarkable. There are no pathologic calculi. IMPRESSION: Nonobstructive bowel gas pattern with fecal retention. Dyeing Machine Feeder: LALY Transcribe Date/Time: Apr 05 2018 1:39P Dictated by : JESSIKA CAMPOVERDE MD This examination was interpreted and the report reviewed and electronically signed by: JESSIKA CAMPOVERDE MD on Apr 05 2018 1:41PM EST [id number] XR CHEST 1V FRONTAL Observed: 04/05/2018 Status: F Source: [place] 8:56 AM [facility] REPOSITORY * * *Final Report* * * DATE OF EXAM: Apr 05 2018 8:56AM [id number] - XR CHEST 1V FRONTAL / PROCEDURE REASON: multiple diagnoses * * * * Physician Interpretation * * * * EXAMINATION: XR CHEST 1V FRONTAL HISTORY: HX OF COLON CONCER Malignant neoplasm of sigmoid colon Secondary malignant neoplasm of retroperitoneum and peritoneum Malignant (primary) neoplasm, unspecified Nausea with vomiting, unspecified. TECHNIQUE: XR CHEST 1V FRONTAL Laterality: NOT APPLICABLE Number of different views (projections): 1, CHEST, 2 ABDOMEN M: XB_1 COMPARISON: Comparison is made to prior chest dated March 2018 RESULT: PICC line is unchanged and satisfactory in position. No interval complication. There is no focal consolidation or acute pleural process. There is no overt pulmonary edema. There is no subdiaphragmatic free air The cardiac, mediastinal and hilar shadows are unchanged. The visualized bony structures are intact IMPRESSION: No acute cardiopulmonary process. Dyeing Machine Feeder: LALY Transcribe Date/Time: Apr 05 2018 1:42P Dictated by : JESSIKA CAMPOVERDE MD This examination was interpreted and the report reviewed and electronically signed by: JESSIKA CAMPOVERDE MD on Apr 05 2018 1:43PM EST [id number] PROGRESS Observed: 03/22/2018 Status: COMPLETED Source: [place] 9:35 AM [facility] REPOSITORY HNO ID: [id number] Author: Geraldo Stone Service: (none) Author Type: Physician Type: Progress Notes Filed: 03/22/2018 9:39 AM Note Text: Diagnosis: 1) Metastatic recurrence of stage III colon cancer. MSI stable. BRAF - A sequence change: c.1781A>G (p.[id number]) was detected at approximately 48% allele proportion. [Reference sequence: (NM_[id number])]. KRAS - No variant detected [Reference?sequence: ([id number]_004985.4)]. NRAS - No variant detected [Reference sequence: (NM_[id number])]. Patient referred by ongoing management of metastatic colon cancer. HPI: The patient is a 62 yo male who developed abdominal pain around June 2014. His symptoms progressively worsened throughout the spring. He also began losing weight in the spring and this culminated in a hospitalization for what was thought to be diverticulitis in December 2014. He underwent a CT scan which was thought to demonstrated a left lower quadrant abscess. The drain was placed and he was treated with antibiotic treatment. Pain flared and a repeat CT scan on 01/24/15 demonstrated marked inflammatory phlegmonous changes of the proximal sigmoid colon. He therefore underwent a colonoscopy and sigmoid colon resection with lymph node dissection on 01/29/2015. The sigmoid colon was noted to be adherent to the anterior abdominal wall and small bowel. The final pathology demonstrated an invasive moderately differentiated adenocarcinoma, tumor extension through the colonic wall and involving the muscularis propria of the small bowel. The proximal margin resection had a small focus of tumor present at the serosal surface. None of 25 lymph nodes were involved. The patient went on to receive 12 cycles FOLFOX which she finished on 09/13/2015. Surveillance CT scan the abdomen and pelvis on January 06, 2016 demonstrated a small omental nodules. He was treated with 4 cycles of FOLFIRI and then underwent exploratory laparotomy, excision of peritoneal/liver/small bowel/mesenteric nodules, heated intraperitoneal chemotherapy (HIPEC) administration for 100 minutes, cystoscopy with bilateral ureteral stent placement on 05/22/2016. Pathology: 1. Small bowel peritoneal nodules, excision (A) - Organizing fibrous adhesions. - No evidence of malignancy. 2. Left liver nodule, biopsy (B) - Adenocarcinoma in liver, consistent with colonic primary. 3. Omentum, excision (C) - Infiltrating adenocarcinoma, consistent with colonic primary. 4. Left upper quadrant abdominal wall, biopsy (D) - Infiltrating adenocarcinoma, consistent with colonic primary. 5. Pelvic nodule and omentum, excision (E) - Infiltrating adenocarcinoma, consistent with colonic primary. - One lymph node, negative for malignancy (0/1). 6. Ileal nodule, excision (F) - Infiltrating adenocarcinoma, consistent with colonic primary. In end of July/first week of August this year he underwent repeat staging workup (CT and PET) which unfortunately showed liver metastasis and intra-abdominal metastases. He recently started back on chemotherapy with FOLFIRI and cetuximab. He's had 2 cycles to date. Previous therapy: 1) FOLFOX ?12 cycles completed 09/13/2015. 2) FOLFIRI x4 cycles. 3) Exploratory lap 04/2016 with HIPEC (mitomycin). Current therapy: 1) FOLFIRI (with Vectibix--side effects permitting). Interim history: Rash remains very minimal and asymptomatic. He does get frequent loose bowel movements, but she prefers this over constipation and has been eating a wider variety of foods. No signs of GI bleeding. No episodes of jaundice. No episodes of fever. Energy level is low. He had a little bit of queasiness following the most recent cycle of treatment but instead of decreasing olanzapine 5 mg at bedtime he stopped it altogether. When he started taking it, nausea subsided. Tolerating Xarelto well with no unusual bleeding or unexplained bruising. Symptoms from neuropathy remain stable. PMH, medications and allergies as below personally reviewed by me today. Any changes documented in appropriate section. ROS: Constitutional: Denies episodes night sweats. Neuro: Denies HIDALGO, vertigo, dizziness and imbalance. HEENT: No recent change in voice, vision or hearing. Resp: Denies cough, wheeze and hemoptysis. Denies shortness of breath at rest. Denies ARENAS. CVS: Denies exertional chest pain, PND, orthopnea and LE edema. GI: Denies dysgeusia. Denies symptoms of stomatitis. : Denies dysuria or gross hematuria. No symptoms of bladder outlet obstruction. Endo: Denies hot flashes. Denies polyuria and polydipsia. Denies heat and cold intolerance. Musculoskeletal: Denies bone, back, joint and muscular pain. Derm: Denies jaundice and diffuse pruritis. Heme: See above. Psych: Normal mood. PHYSICAL EXAM: Vitals: Blood pressure 106/72, pulse 75, temperature 37.4 ?C (99.3 ?F), temperature source Oral, weight 90.3 kg (199 lb). Well-appearing and in no acute distress. EYES: Sclerae are anicteric bilaterally. ENT: Oral mucosa is unremarkable. There is no sign of thrush or mucositis. NECK: Supple. No enlargement of thyroid. LYMPHATIC: There is no palpable cervical, supraclavicular, axillary or inguinal adenopathy. RESPIRATORY: Inspiratory breath sounds are of normal intensity in all [place]. No rales, wheezes or rhonchi. Expiratory phase is normal. CARDIOVASCULAR: Rhythm is regular. Normal intensity S1/S2. There is no gallop or murmur. ABDOMEN: The abdomen is nondistended. No organomegaly. The mass in the midline just above the umbilicus is stable. Extremities: No swelling or edema. SKIN: He has dry, flaky skin as well as resolving acneiform rash of the face upper chest and upper back. 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 No focal motor weakness. MUSCULOSKELETAL: NNo muscle wasting. ASSESSMENT/PLAN: (C18.9) Malignant neoplasm of colon, unspecified part of colon (HCC) (primary encounter diagnosis) (C78.6, C80.1) Peritoneal carcinomatosis (HCC) (C78.7) Metastasis to liver (HCC) (L27.0) Drug rash Assessment: -KPS is 80-90%. -MMR proficient. [facility] sent previous testing that had been done at the time of his surgery 02/2016. Please see scanned document. -Tolerating treatment with current dose of Vectibix very well. Rash is minimal and not significantly tender or painful for him at present. No symptoms of stomatitis. -I personally reviewed CT images and again with patient and independently verified and agreed with the radiologist's findings. SD overall. -He is maintaining very nice palliative effect i.e. relief from intestinal obstruction and anterior abdominal wall pain with current treatment. Side effects are very tolerable. Discussed plan to continue treatment. Plan: -Continue with chemotherapy this week. -Olanzapine 5 mg at at bedtime. -CT scan after 3 more cycles. 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 -No unusual bleeding episodes. Plan: -Continue Xarelto. Geraldo Stone DO CNOVSP Observed: 03/22/2018 Status: COMPLETED Source: [place] 9:20 AM [facility] REPOSITORY Visit (SP) Office ([place]) BECCA MAGANA ([id number]) 1955 M Date Time Provider Department 03/22/18 9:20 AM GERALDO STONE During your visit today, we recorded the following information about you: Temperature Pulse Blood pressure Weight 99.3 degrees 75/minute 106/72 90.3 kg Geraldo Stone DO 03/22/2018 9:39 AM Signed Diagnosis: 1) Metastatic recurrence of stage III colon cancer. MSI stable. BRAF - A sequence change: c.1781A>G ([id number]) was detected at approximately 48% allele proportion. [Reference sequence: ([id number])]. KRAS - No variant detected [Reference?sequence: ([id number])]. NRAS - No variant detected [Reference sequence: ([id number])]. Patient referred by ongoing management of metastatic colon cancer. HPI: The patient is a 62 yo male who developed abdominal pain around June 2014. His symptoms progressively worsened throughout the spring of 2014. He also began losing weight in the spring and this culminated in a hospitalization for what was thought to be diverticulitis in December 2014. He underwent a CT scan which was thought to demonstrated a left lower quadrant abscess. The drain was placed and he was treated with antibiotic treatment. Pain flared and a repeat CT scan on 01/24/15 demonstrated marked inflammatory phlegmonous changes of the proximal sigmoid colon. He therefore underwent a colonoscopy and sigmoid colon resection with lymph node dissection on 01/29/2015. The sigmoid colon was noted to be adherent to the anterior abdominal wall and small bowel. The final pathology demonstrated an invasive moderately differentiated adenocarcinoma, tumor extension through the colonic wall and involving the muscularis propria of the small bowel. The proximal margin resection had a small focus of tumor present at the serosal surface. None of 25 lymph nodes were involved. The patient went on to receive 12 cycles FOLFOX which she finished on 09/13/2015. Surveillance CT scan the abdomen and pelvis on January 06, 2016 demonstrated a small omental nodules. He was treated with 4 cycles of FOLFIRI and then underwent exploratory laparotomy, excision of peritoneal/liver/small bowel/mesenteric nodules, heated intraperitoneal chemotherapy (HIPEC) administration for 100 minutes, cystoscopy with bilateral ureteral stent placement on 05/22/2016. Pathology: 1. Small bowel peritoneal nodules, excision (A) - Organizing fibrous adhesions. - No evidence of malignancy. 2. Left liver nodule, biopsy (B) - Adenocarcinoma in liver, consistent with colonic primary. 3. Omentum, excision (C) - Infiltrating adenocarcinoma, consistent with colonic primary. 4. Left upper quadrant abdominal wall, biopsy (D) - Infiltrating adenocarcinoma, consistent with colonic primary. 5. Pelvic nodule and omentum, excision (E) - Infiltrating adenocarcinoma, consistent with colonic primary. - One lymph node, negative for malignancy (0/1). 6. Ileal nodule, excision (F) - Infiltrating adenocarcinoma, consistent with colonic primary. In end of July/first week of August this year he underwent repeat staging workup (CT and PET) which unfortunately showed liver metastasis and intra-abdominal metastases. He recently started back on chemotherapy with FOLFIRI and cetuximab. He's had 2 cycles to date. Previous therapy: 1) FOLFOX ?12 cycles completed 09/13/2015. 2) FOLFIRI x4 cycles. 3) Exploratory lap 04/2016 with HIPEC (mitomycin). Current therapy: 1) FOLFIRI (with Vectibix--side effects permitting). Interim history: Rash remains very minimal and asymptomatic. He does get frequent loose bowel movements, but she prefers this over constipation and has been eating a wider variety of foods. No signs of GI bleeding. No episodes of jaundice. No episodes of fever. Energy level is low. He had a little bit of queasiness following the most recent cycle of treatment but instead of decreasing olanzapine 5 mg at bedtime he stopped it altogether. When he started taking it, nausea subsided. Tolerating Xarelto well with no unusual bleeding or unexplained bruising. Symptoms from neuropathy remain stable. PMH, medications and allergies as below personally reviewed by me today. Any changes documented in appropriate section. ROS: Constitutional: Denies episodes night sweats. Neuro: Denies HIDALGO, vertigo, dizziness and imbalance. HEENT: No recent change in voice, vision or hearing. Resp: Denies cough, wheeze and hemoptysis. Denies shortness of breath at rest. Denies ARENAS. CVS: Denies exertional chest pain, PND, orthopnea and LE edema. GI: Denies dysgeusia. Denies symptoms of stomatitis. : Denies dysuria or gross hematuria. No symptoms of bladder outlet obstruction. Endo: Denies hot flashes. Denies polyuria and polydipsia. Denies heat and cold intolerance. Musculoskeletal: Denies bone, back, joint and muscular pain. Derm: Denies jaundice and diffuse pruritis. Heme: See above. Psych: Normal mood. PHYSICAL EXAM: Vitals: Blood pressure 106/72, pulse 75, temperature 37.4 ?C (99.3 ?F), temperature source Oral, weight 90.3 kg (199 lb). Well-appearing and in no acute distress. EYES: Sclerae are anicteric bilaterally. ENT: Oral mucosa is unremarkable. There is no sign of thrush or mucositis. NECK: Supple. No enlargement of thyroid. LYMPHATIC: There is no palpable cervical, supraclavicular, axillary or inguinal adenopathy. RESPIRATORY: Inspiratory breath sounds are of normal intensity in all woodruff. No rales, wheezes or rhonchi. Expiratory phase is normal. CARDIOVASCULAR: Rhythm is regular. Normal intensity S1/S2. There is no gallop or murmur. ABDOMEN: The abdomen is nondistended. No organomegaly. The mass in the midline just above the umbilicus is stable. Extremities: No swelling or edema. SKIN: He has dry, flaky skin as well as resolving acneiform rash of the face upper chest and upper back. 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 No focal motor weakness. MUSCULOSKELETAL: NNo muscle wasting. ASSESSMENT/PLAN: (C18.9) Malignant neoplasm of colon, unspecified part of colon (HCC) (primary encounter diagnosis) (C78.6, C80.1) Peritoneal carcinomatosis (HCC) (C78.7) Metastasis to liver (HCC) (L27.0) Drug rash Assessment: -KPS is 80-90%. -MMR proficient. [facility] sent previous testing that had been done at the time of his surgery 02/2016. Please see scanned document. -Tolerating treatment with current dose of Vectibix very well. Rash is minimal and not significantly tender or painful for him at present. No symptoms of stomatitis. -I personally reviewed CT images and again with patient and independently verified and agreed with the radiologist's findings. SD overall. -He is maintaining very nice palliative effect i.e. relief from intestinal obstruction and anterior abdominal wall pain with current treatment. Side effects are very tolerable. Discussed plan to continue treatment. Plan: -Continue with chemotherapy this week. -Olanzapine 5 mg at at bedtime. -CT scan after 3 more cycles. 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 -No unusual bleeding episodes. Plan: -Continue Xarelto. 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 (HCC) [I26.92] Drug rash [L27.0] Follow-up and Disposition History Recorded Prescriptions as of 03/22/2018 Sig: MINOCYCLINE 100 MG CAPSULE Take 1 capsule by mouth twice* DEXAMETHASONE 4 MG TABLET Take 1 tablet by mouth twice * POTASSIUM CHLORIDE ER 20 MEQ * Take 1 tablet by mouth three * RIVAROXABAN 20 MG TABLET Take 1 tablet by mouth daily * OLANZAPINE 10 MG TABLET Take 1 tablet by mouth daily * ONDANSETRON HCL 8 MG TABLET Take 1 tablet by mouth every * AMOXICILLIN 875 MG-POTASSIUM * Take 1 tablet by mouth twice * Problem List As Of Date 03/22/2018 Noted Resolved Colon cancer (HCC) [C18.9] 08/21/2017 Peritoneal carcinomatosis (HCC) [C78.6, C80.1] INVALID FOR* Metastasis to liver (HCC) [C78.7] INVALID FOR* More... Drug rash [L27.0] INVALID FOR* Malignant neoplasm of sigmoid colon (HCC) [C18.*INVALID FOR* Chronic saddle pulmonary embolism without acute*INVALID FOR* Encounter Status:Closed by GERALDO STONE DO on 03/22/18 CT ABD/PEL W IVCON Observed: 03/19/2018 Status: F Source: [place] 11:41 AM [facility] REPOSITORY * * *Final Report* * * DATE OF EXAM: Mar 19 2018 11:41AM [facility] 0530 - CT ABD/PEL W IVCON / PROCEDURE REASON: multiple diagnoses * * * * Physician Interpretation * * * * EXAMINATION: CT ABDOMEN AND PELVIS WITH IV CONTRAST CLINICAL HISTORY: Malignant neoplasm sigmoid colon TECHNIQUE: CT of the abdomen and pelvis was performed using standard technique, scanning from just above the dome of the diaphragm to the symphysis pubis. MQ: CTAP_3 Contrast: Other: 150 ml of Omnipaque 300 Oral: 50 ml of 50ML Omnipaque [address] Radiation dose: Integrated Dose-length product (DLP) for this visit = 550 mGy*cm. CT Dose Reduction Employed: Automated exposure control (AEC) COMPARISON: 12/03/2017 RESULT: Liver: There are findings suggestive of fatty infiltration of the liver. Biliary: The gallbladder is not visualized consistent with cholecystectomy. Spleen: A small hypodensity is noted in the spleen which was seen on the prior study this appears slightly smaller in size on the current study measuring 1.7 cm. On the prior study this measured approximately 2.4 cm in greatest dimension. Pancreas: Fatty atrophy of the pancreas is noted. Adrenals: No mass. Kidneys: No hydronephrosis or renal calculi are identified. The kidneys appear unremarkable. GI tract: No bowel obstruction is identified. The descending and sigmoid colon appears slightly thickened which may be related to the decompressed state of the colon. Scattered colonic diverticula are noted. The appendix is not identified. Lymph nodes: No abdominal or pelvic lymphadenopathy. Mesentery/Peritoneum: No ascites or mass. Retroperitoneum: There is a small peritoneal nodule on image 91 measuring approximately 1 cm in size which appears stable. Vasculature: The aorta appears normal in caliber. No evidence of aneurysm or dissection. Pelvis: The soft tissue attenuation along the lower anterior abdominal wall near the midline appears stable. No enlarging masses are identified. Bones/Soft Tissues: There is an area of soft tissue attenuation along the anterior abdominal wall, which was seen on the prior study, appears stable. Degenerative changes are noted in the thoracic and lumbar spine. Lower thorax: There is a 7 mm partially calcified pulmonary nodule in the right lower lobe which appears stable. IMPRESSION: The decreased attenuation in the spleen noted on the prior study is smaller in size. The other masses appear stable. Stable to improved metastatic disease. Dyeing Machine Feeder: LALY Transcribe Date/Time: Mar 19 2018 9:37P Dictated by : BECCA LAST MD This examination was interpreted and the report reviewed and electronically signed by: BECCA LAST MD on Mar 19 2018 9:47PM EST [id number] PROGRESS Observed: 03/19/2018 Status: COMPLETED Source: [place] 11:18 AM [facility] REPOSITORY HNO ID: [id number] Author: Fina Myrick Ct Service: (none) Author Type: (none) Type: Progress Notes Filed: 03/19/2018 11:24 AM Note Text: Radiology Service Progress Note PATIENT NAME: Becca Magana DATE OF SERVICE: March 19, 2018 TIME: 11:18 AM PATIENT IDENTITY VERIFICATION COMPLETED USING TWO (2) METHODS: Patient confirmed name verbally and Date of . PATIENT GENDER DATA: Male PATIENT RELEVANT IMPLANT DATA REVIEWED: Not Applicable CONTRAST INDUCED NEPHROPATHY RISK FACTORS: Patient age > 60 years CREATININE: Creatinine Date Value Ref Range Status 03/19/2018 0.80 0.6 - 1.2 mg/dL Final 02/25/2018 1.00 0.6 - 1.2 mg/dL Final 01/29/2018 0.80 0.6 - 1.2 mg/dL Final Creatinine, Whole Blood (iSTAT) Date Value Ref Range Status 03/11/2018 0.80 0.70 - 1.40 mg/dL Final eGFR-All Other Races Date Value Ref Range Status 03/19/2018 >60 . Final Comment: eGFR (Estimated GFR) Units of measure: mL/min/1.73 meters squared eGFR is derived from the reexpressed MDRD Study equation using the following parameters: serum creatinine, age, gender and race. The creatinine assay has been calibrated to be traceable to IDMS. An eGFR <60 mL/min/1.73m2 for >3 months is consistent with chronic kidney disease. Refer to KDOQI guidelines for clinical interpretation. In patients with unstable renal function, e.g. those with acute kidney injury, the eGFR may not accurately reflect actual GFR. eGFR- Date Value Ref Range Status 03/19/2018 >60 Final P.O.C.T. RESULTS: POC done: Yes, See Lab Tab March 19, 2018 RADIOLOGIST NOTIFIED?: No ALLERGIES: Reviewed and unchanged CONTRAST ALLERGY: NO. PERIPHERAL IV ACCESS: Ambulatory: IV type: A peripheral IV was started in the lt arm power port accessed by hemoc with a lt arm power port accessed by hemoc., Site assessment: Clean,Dry and Intact, Site disposition Discontinued by nurse from hemoc RADIOLOGY DEPARTMENT: CT; Exam(s) Completed: Abdomen/Pelvis SIGNED BY: Fina Myrick Ct March 19, 2018 11:18 AM [facility] ABS GR + CBC Collected: 03/19/2018 Status: F Source: [place] 10:10 AM [facility] TYPE CODE TESTS RESULT OUT OF REFERENCE UNITS RANGE LAB WWBC 3.70-11.00 k/uL [place] WBC 5.80 LAB WRBC 4.20-6.00 m/uL Low [place] RBC 4.05 LAB WHGB 13.0-17.0 g/dL Low [place] Hemoglobin 12.2 LAB WHCT 39.0-51.0 % Low [place] Hematocrit 35.6 LAB WMCV 80.0-100.0 fL [place] MCV 87.9 LAB WMCH 26.0-34.0 pg [place] MCH 30.1 LAB WMCHC 30.5-36.0 g/dL [place] MCHC 34.3 LAB WRDW 11.5-15.0 % [place] RDW 13.0 LAB WPLT 150-400 k/uL Low [place] Platelet Cnt 137 LAB WMPV 9.0-12.7 fL Low [place] MPV 8.9 Result Comment: Test performed at: [facility], [address] [place] [address]. LAB ABGRAN 1.45-7.50 k/uL [place] Gran 3.11 Count BMP PLUS [facility]HC Collected: 03/19/2018 Status: F Source: [place] 10:10 AM [facility] REPOSITORY TYPE CODE TESTS RESULT OUT OF REFERENCE UNITS RANGE LAB NA 128-145 mmol/L Sodium 135 LAB K 3.6-5.1 mmol/L Low Potassium 3.2 LAB CL 98-108 mmol/L Chloride 102 LAB CO2 18-33 mmol/L CO2 26 LAB CRET 0.6-1.2 mg/dL Creatinine 0.80 LAB BUN 7-22 mg/dL BUN High 26 LAB GLU 73-118 mg/dL Glucose 103 LAB CA 8.0-10.3 mg/dL Calcium, Total 9.7 LAB MG 1.6-2.3 mg/dL Magnesium 1.7 LAB AGAP 9-18 mmol/L Low Anion Gap 7 LAB GFRAA eGFR- >60 Amer. LAB GFRNAA . eGFR-All Other Races >60 Result Comment: eGFR (Estimated GFR) Units of measure: mL/min/1.73 meters squared eGFR is derived from the reexpressed MDRD Study equation using the following parameters: serum creatinine, age, gender and race. The creatinine assay has been calibrated to be traceable to IDMS. An eGFR <60 mL/min/1.73m2 for >3 months is consistent with chronic kidney disease. Refer to KDOQI guidelines for clinical interpretation. In patients with unstable renal function, e.g. those with acute kidney injury, the eGFR may not accurately reflect actual GFR. CEA Collected: 03/19/2018 Status: F Source: [place] 10:10 AM [facility] REPOSITORY TYPE CODE TESTS RESULT OUT OF RANGE REFERENCE UNITS LAB CEA 0.0-2.9 ng/mL High CEA 6.8 Result Comment: Test analyzed by the Harry and DavidI method. Performed By: #### CEA, HFP #### [email or web address] [address] [place], [place] [address] HEPATIC FUNCTN PANEL Collected: 03/19/2018 Status: F Source: [place] 10:10 AM [facility] REPOSITORY TYPE CODE TESTS RESULT OUT OF REFERENCE UNITS RANGE LAB ALB 3.9-4.9 g/dL Albumin 4.1 LAB TBIL 0.2-1.3 mg/dL Bilirubin, Total 0.6 LAB CBIL <0.2 mg/dL Bilirubin,Conjuga <0.2 [place] LAB ALKP 36-108 U/L Alkaline Phosphatase 67 LAB AST 14-40 U/L AST 19 LAB ALT 10-54 U/L ALT 24 LAB TP 6.3-8.0 g/dL Low Protein, Total 6.1 Performed By: #### CEA, HFP #### [facility] [email or web address] [place], [place] [address] PROGRESS Observed: 03/11/2018 Status: COMPLETED Source: [place] 11:05 AM [facility] REPOSITORY HNO ID: [id number] Author: Geraldo Stone Service: (none) Author Type: Physician Type: Progress Notes Filed: 03/11/2018 11:07 AM Note Text: Diagnosis: 1) Metastatic recurrence of stage III colon cancer. MSI stable. BRAF - A sequence change: c.1781A>G ([id number]) was detected at approximately 48% allele proportion. [Reference sequence: ([id number])]. KRAS - No variant detected [Reference?sequence: ([id number]_[id number])]. NRAS - No variant detected [Reference sequence: (NM_[id number])]. Patient referred by ongoing management of metastatic colon cancer. HPI: The patient is a 62 yo male who developed abdominal pain around June 2014. His symptoms progressively worsened throughout the spring. He also began losing weight in the spring and this culminated in a hospitalization for what was thought to be diverticulitis in December 2014. He underwent a CT scan which was thought to demonstrated a left lower quadrant abscess. The drain was placed and he was treated with antibiotic treatment. Pain flared and a repeat CT scan on 01/24/15 demonstrated marked inflammatory phlegmonous changes of the proximal sigmoid colon. He therefore underwent a colonoscopy and sigmoid colon resection with lymph node dissection on 01/29/2015. The sigmoid colon was noted to be adherent to the anterior abdominal wall and small bowel. The final pathology demonstrated an invasive moderately differentiated adenocarcinoma, tumor extension through the colonic wall and involving the muscularis propria of the small bowel. The proximal margin resection had a small focus of tumor present at the serosal surface. None of 25 lymph nodes were involved. The patient went on to receive 12 cycles FOLFOX which she finished on 09/13/2015. Surveillance CT scan the abdomen and pelvis on January 06, 2016 demonstrated a small omental nodules. He was treated with 4 cycles of FOLFIRI and then underwent exploratory laparotomy, excision of peritoneal/liver/small bowel/mesenteric nodules, heated intraperitoneal chemotherapy (HIPEC) administration for 100 minutes, cystoscopy with bilateral ureteral stent placement on 05/22/2016. Pathology: 1. Small bowel peritoneal nodules, excision (A) - Organizing fibrous adhesions. - No evidence of malignancy. 2. Left liver nodule, biopsy (B) - Adenocarcinoma in liver, consistent with colonic primary. 3. Omentum, excision (C) - Infiltrating adenocarcinoma, consistent with colonic primary. 4. Left upper quadrant abdominal wall, biopsy (D) - Infiltrating adenocarcinoma, consistent with colonic primary. 5. Pelvic nodule and omentum, excision (E) - Infiltrating adenocarcinoma, consistent with colonic primary. - One lymph node, negative for malignancy (0/1). 6. Ileal nodule, excision (F) - Infiltrating adenocarcinoma, consistent with colonic primary. In end of July/first week of August this year he underwent repeat staging workup (CT and PET) which unfortunately showed liver metastasis and intra-abdominal metastases. He recently started back on chemotherapy with FOLFIRI and cetuximab. He's had 2 cycles to date. Previous therapy: 1) FOLFOX ?12 cycles completed 09/13/2015. 2) FOLFIRI x4 cycles. 3) Exploratory lap 04/2016 with HIPEC (mitomycin). Current therapy: 1) FOLFIRI (with Vectibix--side effects permitting). Interim history: Minimal rash. Using minocycline and steroid cream had a time really helped. No mouth sores. Bowel obstruction symptoms relieved on day 2 of the last cycle. He felt physical sensation of food moving through the bowels and relief of pain in short order. His been eating a wider variety of foods since then. Olanzapine and dexamethasone prevented nausea but he was very fatigued with olanzapine. Tolerating Xarelto well with no unusual bleeding or unexplained bruising. Symptoms from neuropathy remain stable. PMH, medications and allergies as below personally reviewed by me today. Any changes documented in appropriate section. ROS: Constitutional: Denies episodes night sweats. Neuro: Denies HIDALGO, vertigo, dizziness and imbalance. HEENT: No recent change in voice, vision or hearing. Resp: Denies cough, wheeze and hemoptysis. Denies shortness of breath at rest. Denies ARENAS. CVS: Denies exertional chest pain, PND, orthopnea and LE edema. GI: Denies dysgeusia. Denies symptoms of stomatitis. : Denies dysuria or gross hematuria. No symptoms of bladder outlet obstruction. Endo: Denies hot flashes. Denies polyuria and polydipsia. Denies heat and cold intolerance. Musculoskeletal: Denies bone, back, joint and muscular pain. Derm: Denies jaundice and diffuse pruritis. Heme: See above. Psych: Normal mood. PHYSICAL EXAM: Vitals: Blood pressure 104/69, pulse 75, temperature 36.9 ?C (98.4 ?F), temperature source Temporal Artery, weight 91.6 kg (202 lb). Well-appearing and in no acute distress. EYES: Sclerae are anicteric bilaterally. ENT: Oral mucosa is unremarkable. There is no sign of thrush or mucositis. NECK: Supple. No enlargement of thyroid. LYMPHATIC: There is no palpable cervical, supraclavicular, axillary or inguinal adenopathy. RESPIRATORY: Inspiratory breath sounds are of normal intensity in all woodruff. No rales, wheezes or rhonchi. Expiratory phase is normal. CARDIOVASCULAR: Rhythm is regular. Normal intensity S1/S2. There is no gallop or murmur. ABDOMEN: The abdomen is nondistended. No organomegaly. The mass in the midline just above the umbilicus is stable. Extremities: No swelling or edema. SKIN: He has dry, flaky skin as well as resolving acneiform rash of the face upper chest and upper back. 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 No focal motor weakness. MUSCULOSKELETAL: NNo muscle wasting. ASSESSMENT/PLAN: (C18.9) Malignant neoplasm of colon, unspecified part of colon (HCC) (primary encounter diagnosis) (C78.6, C80.1) Peritoneal carcinomatosis (HCC) (C78.7) Metastasis to liver (HCC) (L27.0) Drug rash Assessment: -KPS is 80-90%. -MMR proficient. [facility] sent previous testing that had been done at the time of his surgery 02/2016. Please see scanned document. -Tolerating treatment with current dose of Vectibix very well. Rash is minimal and not significantly tender or painful for him at present. No symptoms of stomatitis. No significant diarrhea. -Discussed plan to continue treatment on an every two-week basis as long as he tolerates it reasonably well. He would like to take a break from treatment to go on a trip to [place] in June. I think this is a very realistic goal for him. He's, schedule a trip I advised cancellation insurance. Plan: -Continue with chemotherapy this week. -Decrease olanzapine 5 mg at at bedtime. -CT scan prior to next cycle. 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 -No unusual bleeding episodes. Plan: -Continue Xarelto. Geraldo Stone DO CNOVSP Observed: 03/11/2018 Status: COMPLETED Source: [place] 10:30 AM [facility] REPOSITORY Visit (SP) Office ([place]) BECCA MAGANA ([id number]) 1955 M Date Time Provider Department 03/11/18 10:30 AM GERALDO STONE During your visit today, we recorded the following information about you: Temperature Pulse Blood pressure Weight 98.4 degrees 75/minute 104/69 91.6 kg Geraldo Stone DO 03/11/2018 11:07 AM Signed Diagnosis: 1) Metastatic recurrence of stage III colon cancer. MSI stable. BRAF - A sequence change: c.1781A>G (p.[id number]) was detected at approximately 48% allele proportion. [Reference sequence: ([id number]_004333.4)]. KRAS - No variant detected [Reference?sequence: ([id number]_004985.4)]. NRAS - No variant detected [Reference sequence: (NM_[id number])]. Patient referred by ongoing management of metastatic colon cancer. HPI: The patient is a 62 yo male who developed abdominal pain around June 2014. His symptoms progressively worsened throughout the spring. He also began losing weight in the spring and this culminated in a hospitalization for what was thought to be diverticulitis in December 2014. He underwent a CT scan which was thought to demonstrated a left lower quadrant abscess. The drain was placed and he was treated with antibiotic treatment. Pain flared and a repeat CT scan on 01/24/15 demonstrated marked inflammatory phlegmonous changes of the proximal sigmoid colon. He therefore underwent a colonoscopy and sigmoid colon resection with lymph node dissection on 01/29/2015. The sigmoid colon was noted to be adherent to the anterior abdominal wall and small bowel. The final pathology demonstrated an invasive moderately differentiated adenocarcinoma, tumor extension through the colonic wall and involving the muscularis propria of the small bowel. The proximal margin resection had a small focus of tumor present at the serosal surface. None of 25 lymph nodes were involved. The patient went on to receive 12 cycles FOLFOX which she finished on 09/13/2015. Surveillance CT scan the abdomen and pelvis on January 06, 2016 demonstrated a small omental nodules. He was treated with 4 cycles of FOLFIRI and then underwent exploratory laparotomy, excision of peritoneal/liver/small bowel/mesenteric nodules, heated intraperitoneal chemotherapy (HIPEC) administration for 100 minutes, cystoscopy with bilateral ureteral stent placement on 05/22/2016. Pathology: 1. Small bowel peritoneal nodules, excision (A) - Organizing fibrous adhesions. - No evidence of malignancy. 2. Left liver nodule, biopsy (B) - Adenocarcinoma in liver, consistent with colonic primary. 3. Omentum, excision (C) - Infiltrating adenocarcinoma, consistent with colonic primary. 4. Left upper quadrant abdominal wall, biopsy (D) - Infiltrating adenocarcinoma, consistent with colonic primary. 5. Pelvic nodule and omentum, excision (E) - Infiltrating adenocarcinoma, consistent with colonic primary. - One lymph node, negative for malignancy (0/1). 6. Ileal nodule, excision (F) - Infiltrating adenocarcinoma, consistent with colonic primary. In end of July/first week of August this year he underwent repeat staging workup (CT and PET) which unfortunately showed liver metastasis and intra-abdominal metastases. He recently started back on chemotherapy with FOLFIRI and cetuximab. He's had 2 cycles to date. Previous therapy: 1) FOLFOX ?12 cycles completed 09/13/2015. 2) FOLFIRI x4 cycles. 3) Exploratory lap 04/2016 with HIPEC (mitomycin). Current therapy: 1) FOLFIRI (with Vectibix--side effects permitting). Interim history: Minimal rash. Using minocycline and steroid cream had a time really helped. No mouth sores. Bowel obstruction symptoms relieved on day 2 of the last cycle. He felt physical sensation of food moving through the bowels and relief of pain in short order. His been eating a wider variety of foods since then. Olanzapine and dexamethasone prevented nausea but he was very fatigued with olanzapine. Tolerating Xarelto well with no unusual bleeding or unexplained bruising. Symptoms from neuropathy remain stable. PMH, medications and allergies as below personally reviewed by me today. Any changes documented in appropriate section. ROS: Constitutional: Denies episodes night sweats. Neuro: Denies HIDALGO, vertigo, dizziness and imbalance. HEENT: No recent change in voice, vision or hearing. Resp: Denies cough, wheeze and hemoptysis. Denies shortness of breath at rest. Denies ARENAS. CVS: Denies exertional chest pain, PND, orthopnea and LE edema. GI: Denies dysgeusia. Denies symptoms of stomatitis. : Denies dysuria or gross hematuria. No symptoms of bladder outlet obstruction. Endo: Denies hot flashes. Denies polyuria and polydipsia. Denies heat and cold intolerance. Musculoskeletal: Denies bone, back, joint and muscular pain. Derm: Denies jaundice and diffuse pruritis. Heme: See above. Psych: Normal mood. PHYSICAL EXAM: Vitals: Blood pressure 104/69, pulse 75, temperature 36.9 ?C (98.4 ?F), temperature source Temporal Artery, weight 91.6 kg (202 lb). Well-appearing and in no acute distress. EYES: Sclerae are anicteric bilaterally. ENT: Oral mucosa is unremarkable. There is no sign of thrush or mucositis. NECK: Supple. No enlargement of thyroid. LYMPHATIC: There is no palpable cervical, supraclavicular, axillary or inguinal adenopathy. RESPIRATORY: Inspiratory breath sounds are of normal intensity in all woodruff. No rales, wheezes or rhonchi. Expiratory phase is normal. CARDIOVASCULAR: Rhythm is regular. Normal intensity S1/S2. There is no gallop or murmur. ABDOMEN: The abdomen is nondistended. No organomegaly. The mass in the midline just above the umbilicus is stable. Extremities: No swelling or edema. SKIN: He has dry, flaky skin as well as resolving acneiform rash of the face upper chest and upper back. 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 No focal motor weakness. MUSCULOSKELETAL: NNo muscle wasting. ASSESSMENT/PLAN: (C18.9) Malignant neoplasm of colon, unspecified part of colon (HCC) (primary encounter diagnosis) (C78.6, C80.1) Peritoneal carcinomatosis (HCC) (C78.7) Metastasis to liver (HCC) (L27.0) Drug rash Assessment: -KPS is 80-90%. -MMR proficient. [facility] sent previous testing that had been done at the time of his surgery 02/2016. Please see scanned document. -Tolerating treatment with current dose of Vectibix very well. Rash is minimal and not significantly tender or painful for him at present. No symptoms of stomatitis. No significant diarrhea. -Discussed plan to continue treatment on an every two-week basis as long as he tolerates it reasonably well. He would like to take a break from treatment to go on a trip to [place] in June. I think this is a very realistic goal for him. He's, schedule a trip I advised cancellation insurance. Plan: -Continue with chemotherapy this week. -Decrease olanzapine 5 mg at at bedtime. -CT scan prior to next cycle. 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 -No unusual bleeding episodes. Plan: -Continue Xarelto. 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 Discontinue saline lock post exam. If Pt. has a central line or IVAD, may access for administration according to line specific nursing protocol. Once exam is complete flush line and de- access according to line specific nursing protocol in the CT contrast administration guidelines link.Disp: 1 EachRfl: 0 enteric contrast (will be provided with radiology test)For CT ABD/PEL W IVCON Routine order Administer, As Directed One Time Only, via Oral, Rectal, both Oral and Rectal, Enteric Tube, Stoma or Indwelling Catheter, Enteric Contrast as designated per enteric contrast guidelinesDisp: 1 EachRfl: 0 Follow-up and Disposition History Recorded Prescriptions as of 03/11/2018 Sig: MINOCYCLINE 100 MG CAPSULE Take 1 capsule by mouth twice* DEXAMETHASONE 4 MG TABLET Take 1 tablet by mouth twice * POTASSIUM CHLORIDE ER 20 MEQ * Take 1 tablet by mouth three * RIVAROXABAN 20 MG TABLET Take 1 tablet by mouth daily * OLANZAPINE 10 MG TABLET Take 1 tablet by mouth daily * ONDANSETRON HCL 8 MG TABLET Take 1 tablet by mouth every * IV CONTRAST (RADIOLOGY PROCED* CT ABD/PEL -Inject, intraveno* ENTERIC CONTRAST (RADIOLOGY P* For CT ABD/PEL W IVCON Routin* AMOXICILLIN 875 MG-POTASSIUM * Take 1 tablet by mouth twice * Medication notes this encounter DEXAMETHASONE 4 MG TABLET >> Susanne Doyle MA 03/11/2018 10:18 AM >> SUSANNE DOYLE MA Mar 11, 2018 10:18 AM Completed >> Susanne Doyle MA 03/11/2018 10:23 AM >> JOSH ORTIZSUSANNE Mariaa Mar 11, 2018 10:23 AM Taking one tablet by mouth twice daily with meals for three days beginning the day after chemo treatment. Problem List As Of Date 03/11/2018 Noted Resolved Colon cancer (HCC) [C18.9] 08/21/2017 Peritoneal carcinomatosis (HCC) [C78.6, C80.1] INVALID FOR* Metastasis to liver (HCC) [C78.7] INVALID FOR* More... Drug rash [L27.0] INVALID FOR* Malignant neoplasm of sigmoid colon (HCC) [C18.*INVALID FOR* Chronic saddle pulmonary embolism without acute*INVALID FOR* Encounter Status:Closed by GERALDO STONE DO on 03/11/18 HEPATIC FUNCTN PANEL Collected: 03/11/2018 Status: F Source: [place] 10:13 AM [facility] REPOSITORY TYPE CODE TESTS RESULT OUT OF REFERENCE UNITS RANGE LAB ALB 3.9-4.9 g/dL Albumin 3.9 LAB TBIL 0.2-1.3 mg/dL Bilirubin, Total 0.2 LAB CBIL <0.2 mg/dL Bilirubin,Conjuga <0.2 [place] LAB ALKP 36-108 U/L Alkaline Phosphatase 67 LAB AST 14-40 U/L AST 25 LAB ALT 10-54 U/L ALT 27 LAB TP 6.3-8.0 g/dL Protein, Total 6.3 Performed By: #### HFP #### [facility] [address] [place] [address] [place] ABS GR + CBC Collected: 03/11/2018 Status: F Source: [place] 10:12 AM [facility] REPOSITORY TYPE CODE TESTS RESULT OUT OF REFERENCE UNITS RANGE LAB WWBC 3.70-11.00 k/uL [place] WBC 4.34 LAB WRBC 4.20-6.00 m/uL Low [place] RBC 3.67 LAB WHGB 13.0-17.0 g/dL Low [place] Hemoglobin 11.1 LAB WHCT 39.0-51.0 % Low [place] Hematocrit 33.4 LAB WMCV 80.0-100.0 fL [place] MCV 91.0 LAB WMCH 26.0-34.0 pg [place] MCH 30.2 LAB WMCHC 30.5-36.0 g/dL [place] MCHC 33.2 LAB WRDW 11.5-15.0 % [place] RDW 13.7 LAB WPLT 150-400 k/uL [place] Platelet Cnt 173 LAB WMPV 9.0-12.7 fL [place] MPV 9.2 Result Comment: Test performed at: [facility] [place], [address] [place] [address]. LAB ABGRAN 1.45-7.50 k/uL Absol Gran 2.43 Count [place] ISTAT BMP Collected: 03/11/2018 Status: F Source: [place] 10:12 AM [facility] REPOSITORY TYPE CODE TESTS RESULT OUT OF REFERENCE UNITS RANGE LAB NAWB 135-146 mmol/L Sodium, Whole 142 Bld LAB K1WB 3.5-5.0 mmol/L Potassium,Who 3.7 le Bld LAB CLWB 98-110 mmol/L Chloride, 108 Whole Bld LAB ICAWB 1.08-1.30 mmol/L Ionized 1.25 Calcium, WB Result Comment: Please note: This value represents ionized calcium not total calcium. LAB CO2WB 23-32 mmol/L Low TCO2, Whole Blood 21 LAB GLUWB 65-100 mg/dL Glucose, Whole Bld 91 LAB BUNWB 10-25 mg/dL BUN, Whole Blood 14 LAB BCRET 0.70-1.40 mg/dL Creatinine,Wh ole Bld 0.80 LAB AGAPWB 0-15 mmol/L Anion Gap, Whole Bld 13 LAB GFRAA eGFR- Amer. >60 LAB GFRNAA . eGFR-All Other Races >60 Result Comment: eGFR (Estimated GFR) Units of measure: mL/min/1.73 meters squared eGFR is derived from the reexpressed MDRD Study equation using the following parameters: serum creatinine, age, gender and race. The creatinine assay has been calibrated to be traceable to IDMS. An eGFR <60 mL/min/1.73m2 for >3 months is consistent with chronic kidney disease. Refer to KDOQI guidelines for clinical interpretation. In patients with unstable renal function, e.g. those with acute kidney injury, the eGFR may not accurately reflect actual GFR. DISCHARGE SUMMARY Observed: 02/28/2018 Status: F Source: [place] 11:18 AM [facility] REPOSITORY [facility] DISCHARGE SUMMARY NAME ACCOUNT SEX AGE ADMIT DISCHARGE PT MED. RECORD# NUMBER DATE DATE TYPE BECCA MAGANA [id number] Josefa 62 02/24/18 02/25/18 2 [id number] ROOM: 317 DATE OF : 1955 DICTATING PHYSICIAN: Izabela Magana FINAL DIAGNOSES: Partial bowel obstruction, abdominal pain, and nausea. HOSPITAL COURSE: Becca Magana is a pleasant 62-year-old gentleman who was admitted with abdominal pain and inability to tolerate oral intake. He was found to be dehydrated. He was kept at bowel rest, given intravenous fluids, and had excellent pain control. He has a scheduled appointment with his oncologist today for his recurrent metastatic colon cancer. He wishes to see his oncologist, and will follow up with him today for an appointment. I sent along copies of his x-rays, laboratories, and his information. The patient and spouse appear to understand the plan, findings, and wish to proceed as outlined. They wish to see the oncologist and have no further questions. Dictated By: Izabela Magana MD 02/25/18 17:31 JOB #: [id number] Transcribed By: mickey 02/25/18 17:40 Electronically signed by: E-Sign Dr. Izabela Magana MD 02/28/18 11:17 Page 1 of 1 BECCA MAGANA Discharge Summary HISTORY AND PHYSICAL Observed: 02/28/2018 Status: F Source: [facility] [place] EXAM 11:18 AM [facility] HISTORY & PHYSICAL NAME ACCOUNT SEX AGE ADMIT DISCHARGE PT MED. RECORD# NUMBER DATE DATE TYPE BECCA MAGANA [id number] Josefa 62 02/24/18 2 [id number] ROOM: 317 DATE OF : [birth year] DICTATING PHYSICIAN: Izabela Magana DIAGNOSIS: Abdominal pain. HISTORY OF PRESENT ILLNESS: Becca Magana is a pleasant 62-year-old gentleman who has had several days of abdominal pain, decreased stool and decreased flatus, although he is still passing flatus and today he had a very small bowel movement. He has had no fevers, sweats or chills, but he has had decreased energy. He feels weak and tired and was unable to eat adequately. He felt somewhat distended and bloated. The patient has a prior history of colon cancer which had actually been discovered approximately 3 years ago after a period of abdominal pain, weight loss. He has undergone multiple surgeries and has had chemotherapy and appears to have had recurrence that was not felt to be surgically treatable. He is scheduled to see his oncologist, Dr. Stone, tomorrow at 0845 hours. Initially, he tried taking liquids at home, but could not tolerate this adequately and so presented for further evaluation and treatment. He has had no bloody stool, black tarry stool, no significant diarrhea but he did have decreased stool output. PAST MEDICAL HISTORY: (1) History of colon cancer with metastases and recurrence, see old chart. (2) Distant history of pneumonia. (3) History of back problems. (4) Distant history of elevated PSA, details not available. (5) History of pulmonary emboli. He is on Xarelto. (6) No rheumatic heart disease, heart attack, stroke, seizure, diabetes, congestive heart failure (see old chart). PAST SURGICAL HISTORY: (1) Multiple abdominal surgeries for colon cancer. (2) Appendectomy - 3rd grade. (3) T&A - distant history. (4) Hand surgery for table saw accident on left hand. MEDICATIONS: (1) Xarelto. ALLERGIES: No known drug allergies. FAMILY HISTORY: Paternal grandfather had colon cancer. Sister had diabetes. No hypertension, anesthetic allergies or bleeding diatheses. Otherwise see above. SOCIAL HISTORY: Smoking - none. Ethanol - Rare. The patient is . 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 He has attentive family members. Page 1 of 3 BECCA MAGANA History & Physical REVIEW OF SYSTEMS: No thyroid, kidney, liver or heart complaints currently. Otherwise, see above. PHYSICAL EXAMINATION GENERAL APPEARANCE: Pleasant and alert gentleman, appearing tired with decreased skin turgor. VITAL SIGNS: Per nursing notes. SKIN: Not jaundiced. HEENT: EOMI not icteric. Mucosal surfaces decreased moisture. NECK: No JVD. No thyromegaly. LUNGS: Clear except for slightly decreased breath sounds at the bases. HEART: Regular rate and rhythm, no gallops, rubs, or murmurs. ABDOMEN: He has healthy midline scars. He has slight tenderness above the umbilicus with slight fullness in this area. No true rebound. He is slightly distended. No true flank tenderness. No thrill. No bruit. No pulsatile mass. EXTREMITIES: Calves nontender, fair radial upstroke. NEUROLOGIC: Nonfocal. IMPRESSION/PLAN: 1. Recurrent metastatic colon cancer, nonoperable, being followed by Oncology. The patient is scheduled to see Dr. Stone tomorrow, but felt he needed pain control and rehydration. He was admitted and we will use Toradol and Ofirmev for most of his pain control and add Dilaudid as needed if he has more severe pain. However, we will try to avoid narcotics if we can as these will decrease his GI motility. Difficult situation in an otherwise quite healthy gentleman. We will try to keep him comfortable. The patient and spouse have no further questions. 2. Distant history of pulmonary embolus. The patient is on Xarelto. 3. Distant history of diverticulitis. 4. History of PSA, details not available. 5. Dehydration. The patient is receiving intravenous fluids. Dictated By: Izabela Magana MD 02/24/18 22:01 JOB #: [id number] Transcribed By: amelia 02/24/18 22:27 Page 2 of 3 BECCA MAGANA History & Physical Electronically signed by: E-Sign Dr. Izabela Magana MD 02/28/18 11:17 Update to H&P: [ ] No changes: I have examined the patient and reviewed the H&P and there are no changes. [ ] As previously dictated with the following changes: PHYSICIAN SIGNATURE: TIME: DATE: Page 3 of 3 BECCA MAGANA History & Physical PROGRESS Observed: 02/25/2018 Status: COMPLETED Source: [place] 9:24 AM [facility] REPOSITORY HNO ID: [id number] Author: Geraldo Stone Service: (none) Author Type: Physician Type: Progress Notes Filed: 02/25/2018 9:41 AM Note Text: Diagnosis: 1) Metastatic recurrence of stage III colon cancer. MSI stable. BRAF - A sequence change: c.1781A>G (p.[id number]) was detected at approximately 48% allele proportion. [Reference sequence: ([id number])]. KRAS - No variant detected [Reference?sequence: ([id number])]. NRAS - No variant detected [Reference sequence: (NM_[id number])]. Patient referred by ongoing management of metastatic colon cancer. HPI: The patient is a 62 yo male who developed abdominal pain around June 2014. His symptoms progressively worsened throughout the spring. He also began losing weight in the spring and this culminated in a hospitalization for what was thought to be diverticulitis in December 2014. He underwent a CT scan which was thought to demonstrated a left lower quadrant abscess. The drain was placed and he was treated with antibiotic treatment. Pain flared and a repeat CT scan on 01/24/15 demonstrated marked inflammatory phlegmonous changes of the proximal sigmoid colon. He therefore underwent a colonoscopy and sigmoid colon resection with lymph node dissection on 01/29/2015. The sigmoid colon was noted to be adherent to the anterior abdominal wall and small bowel. The final pathology demonstrated an invasive moderately differentiated adenocarcinoma, tumor extension through the colonic wall and involving the muscularis propria of the small bowel. The proximal margin resection had a small focus of tumor present at the serosal surface. None of 25 lymph nodes were involved. The patient went on to receive 12 cycles FOLFOX which she finished on 09/13/2015. Surveillance CT scan the abdomen and pelvis on January 06, 2016 demonstrated a small omental nodules. He was treated with 4 cycles of FOLFIRI and then underwent exploratory laparotomy, excision of peritoneal/liver/small bowel/mesenteric nodules, heated intraperitoneal chemotherapy (HIPEC) administration for 100 minutes, cystoscopy with bilateral ureteral stent placement on 05/22/2016. Pathology: 1. Small bowel peritoneal nodules, excision (A) - Organizing fibrous adhesions. - No evidence of malignancy. 2. Left liver nodule, biopsy (B) - Adenocarcinoma in liver, consistent with colonic primary. 3. Omentum, excision (C) - Infiltrating adenocarcinoma, consistent with colonic primary. 4. Left upper quadrant abdominal wall, biopsy (D) - Infiltrating adenocarcinoma, consistent with colonic primary. 5. Pelvic nodule and omentum, excision (E) - Infiltrating adenocarcinoma, consistent with colonic primary. - One lymph node, negative for malignancy (0/1). 6. Ileal nodule, excision (F) - Infiltrating adenocarcinoma, consistent with colonic primary. In end of July/first week of August this year he underwent repeat staging workup (CT and PET) which unfortunately showed liver metastasis and intra-abdominal metastases. He recently started back on chemotherapy with FOLFIRI and cetuximab. He's had 2 cycles to date. Previous therapy: 1) FOLFOX ?12 cycles completed 09/13/2015. 2) FOLFIRI x4 cycles. 3) Exploratory lap 04/2016 with HIPEC (mitomycin). Current therapy: 1) FOLFIRI (with Vectibix--side effects permitting). Interim history: He was seen on Sunday for increasing abdominal pain and distention. Plain films suggested possible ileus. However results weren't known until later that evening. He went into the hospital last night with crescendo pain. He was admitted overnight and given hydration and pain medications. No NG tube. Plain film x-ray suggested possible obstruction at the descending colon. He hasn't been vomiting. He's not had a fever. The tumor in the anterior abdominal wall apparently was more erythematous and he was started on antibiotics last night but the erythema has resolved. He is passing flatus. He's been trying to eat as much as he can which hasn't been very much. Tolerating Xarelto well with no unusual bleeding or unexplained bruising. Symptoms from neuropathy remain stable. PMH, medications and allergies as below personally reviewed by me today. Any changes documented in appropriate section. ROS: Constitutional: Denies episodes night sweats. Neuro: Denies HIDALGO, vertigo, dizziness and imbalance. HEENT: No recent change in voice, vision or hearing. Resp: Denies cough, wheeze and hemoptysis. Denies shortness of breath at rest. Denies ARENAS. CVS: Denies exertional chest pain, PND, orthopnea and LE edema. GI: Denies dysgeusia. Denies symptoms of stomatitis. : Denies dysuria or gross hematuria. No symptoms of bladder outlet obstruction. Endo: Denies hot flashes. Denies polyuria and polydipsia. Denies heat and cold intolerance. Musculoskeletal: Denies bone, back, joint and muscular pain. Derm: Denies jaundice and diffuse pruritis. Heme: See above. Psych: Normal mood. PHYSICAL EXAM: Vitals: Blood pressure 103/68, pulse 65, temperature 36.4 ?C (97.6 ?F), temperature source Oral. Well-appearing and in no acute distress. EYES: Sclerae are anicteric bilaterally. ENT: Oral mucosa is unremarkable. There is no sign of thrush or mucositis. NECK: Supple. No enlargement of thyroid. LYMPHATIC: There is no palpable cervical, supraclavicular, axillary or inguinal adenopathy. RESPIRATORY: Inspiratory breath sounds are of normal intensity in all woodruff. No rales, wheezes or rhonchi. Expiratory phase is normal. CARDIOVASCULAR: Rhythm is regular. Normal intensity S1/S2. There is no gallop or murmur. ABDOMEN: The abdomen is nondistended. No organomegaly. The mass in the midline just above the umbilicus is stable. Extremities: No swelling or edema. SKIN: He has dry, flaky skin as well as resolving acneiform rash of the face upper chest and upper back. 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 No focal motor weakness. MUSCULOSKELETAL: NNo muscle wasting. ASSESSMENT/PLAN: (C18.9) Malignant neoplasm of colon, unspecified part of colon (HCC) (primary encounter diagnosis) (C78.6, C80.1) Peritoneal carcinomatosis (HCC) (C78.7) Metastasis to liver (HCC) (L27.0) Drug rash Assessment: -KPS is 80-90%. -MMR proficient. [facility] sent previous testing that had been done at the time of his surgery 02/2016. Please see scanned document. -He tolerated chemotherapy and Vectibix at half dose very well. He had wanted to receive chemotherapy once a month. He now has partial bowel obstruction. I had a very open and nicky discussion with the patient and his again today regarding the strategy. I explained that if there is any hope of extending his life in palliating his symptoms better then we need to keep chemotherapy on an every two-week schedule. Admittedly this is difficult for him given the significant side effects he's had with Vectibix before but with a preemptive strategy of topical hydrocortisone therapy and starting minocycline the side effects were not as bad this past cycle. Also I explained I'd like to start him on dexamethasone twice a day for several days. Advise clear liquid diet as well for the next several days. Hopefully he'll have some relief from the partial small bowel obstruction later this week. If not we may have to consider admission for appropriate care at that point. Plan: -As above. 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 -No unusual bleeding episodes. Plan: -Continue Xarelto. Geraldo Stone DO CNOVSP Observed: 02/25/2018 Status: COMPLETED Source: [place] 9:10 AM [facility] REPOSITORY Visit (SP) Office ([place]) BECCA MAGANA ([id number]) 1955 M Date Time Provider Department 02/25/18 9:10 AM GERALDO STONE During your visit today, we recorded the following information about you: Temperature Pulse Blood pressure 97.6 degrees 65/minute 103/68 Daisy Luba MELENDEZ 02/25/2018 9:24 AM Signed Est patient. Discuss recent labs. Was here Sunday with c/o abdominal pain. Took Mag Citrate Sunday afternoon and Sunday morning without relief of pain. Was admitted to [facility] Sunday for partial bowel obstruction and was discharged this morning. Daisy Verduzco AL Geraldo StoneDO 02/25/2018 9:41 AM Signed Diagnosis: 1) Metastatic recurrence of stage III colon cancer. MSI stable. BRAF - A sequence change: [id number] ([id number]) was detected at approximately 48% allele proportion. [Reference sequence: ([id number])]. KRAS - No variant detected [Reference?sequence: ([id number])]. NRAS - No variant detected [Reference sequence: ([id number])]. Patient referred by ongoing management of metastatic colon cancer. HPI: The patient is a 62 yo male who developed abdominal pain around June 2014. His symptoms progressively worsened throughout the spring. He also began losing weight in the spring and this culminated in a hospitalization for what was thought to be diverticulitis in December 2014. He underwent a CT scan which was thought to demonstrated a left lower quadrant abscess. The drain was placed and he was treated with antibiotic treatment. Pain flared and a repeat CT scan on 01/24/15 demonstrated marked inflammatory phlegmonous changes of the proximal sigmoid colon. He therefore underwent a colonoscopy and sigmoid colon resection with lymph node dissection on 01/29/2015. The sigmoid colon was noted to be adherent to the anterior abdominal wall and small bowel. The final pathology demonstrated an invasive moderately differentiated adenocarcinoma, tumor extension through the colonic wall and involving the muscularis propria of the small bowel. The proximal margin resection had a small focus of tumor present at the serosal surface. None of 25 lymph nodes were involved. The patient went on to receive 12 cycles FOLFOX which she finished on 09/13/2015. Surveillance CT scan the abdomen and pelvis on January 06, 2016 demonstrated a small omental nodules. He was treated with 4 cycles of FOLFIRI and then underwent exploratory laparotomy, excision of peritoneal/liver/small bowel/mesenteric nodules, heated intraperitoneal chemotherapy (HIPEC) administration for 100 minutes, cystoscopy with bilateral ureteral stent placement on 05/22/2016. Pathology: 1. Small bowel peritoneal nodules, excision (A) - Organizing fibrous adhesions. - No evidence of malignancy. 2. Left liver nodule, biopsy (B) - Adenocarcinoma in liver, consistent with colonic primary. 3. Omentum, excision (C) - Infiltrating adenocarcinoma, consistent with colonic primary. 4. Left upper quadrant abdominal wall, biopsy (D) - Infiltrating adenocarcinoma, consistent with colonic primary. 5. Pelvic nodule and omentum, excision (E) - Infiltrating adenocarcinoma, consistent with colonic primary. - One lymph node, negative for malignancy (0/1). 6. Ileal nodule, excision (F) - Infiltrating adenocarcinoma, consistent with colonic primary. In end of July/first week of August this year he underwent repeat staging workup (CT and PET) which unfortunately showed liver metastasis and intra-abdominal metastases. He recently started back on chemotherapy with FOLFIRI and cetuximab. He's had 2 cycles to date. Previous therapy: 1) FOLFOX ?12 cycles completed 09/13/2015. 2) FOLFIRI x4 cycles. 3) Exploratory lap 04/2016 with HIPEC (mitomycin). Current therapy: 1) FOLFIRI (with Vectibix--side effects permitting). Interim history: He was seen on Sunday for increasing abdominal pain and distention. Plain films suggested possible ileus. However results weren't known until later that evening. He went into the hospital last night with crescendo pain. He was admitted overnight and given hydration and pain medications. No NG tube. Plain film x-ray suggested possible obstruction at the descending colon. He hasn't been vomiting. He's not had a fever. The tumor in the anterior abdominal wall apparently was more erythematous and he was started on antibiotics last night but the erythema has resolved. He is passing flatus. He's been trying to eat as much as he can which hasn't been very much. Tolerating Xarelto well with no unusual bleeding or unexplained bruising. Symptoms from neuropathy remain stable. PMH, medications and allergies as below personally reviewed by me today. Any changes documented in appropriate section. ROS: Constitutional: Denies episodes night sweats. Neuro: Denies HIDALGO, vertigo, dizziness and imbalance. HEENT: No recent change in voice, vision or hearing. Resp: Denies cough, wheeze and hemoptysis. Denies shortness of breath at rest. Denies ARENAS. CVS: Denies exertional chest pain, PND, orthopnea and LE edema. GI: Denies dysgeusia. Denies symptoms of stomatitis. : Denies dysuria or gross hematuria. No symptoms of bladder outlet obstruction. Endo: Denies hot flashes. Denies polyuria and polydipsia. Denies heat and cold intolerance. Musculoskeletal: Denies bone, back, joint and muscular pain. Derm: Denies jaundice and diffuse pruritis. Heme: See above. Psych: Normal mood. PHYSICAL EXAM: Vitals: Blood pressure 103/68, pulse 65, temperature 36.4 ?C (97.6 ?F), temperature source Oral. Well-appearing and in no acute distress. EYES: Sclerae are anicteric bilaterally. ENT: Oral mucosa is unremarkable. There is no sign of thrush or mucositis. NECK: Supple. No enlargement of thyroid. LYMPHATIC: There is no palpable cervical, supraclavicular, axillary or inguinal adenopathy. RESPIRATORY: Inspiratory breath sounds are of normal intensity in all [place]. No rales, wheezes or rhonchi. Expiratory phase is normal. CARDIOVASCULAR: Rhythm is regular. Normal intensity S1/S2. There is no gallop or murmur. ABDOMEN: The abdomen is nondistended. No organomegaly. The mass in the midline just above the umbilicus is stable. Extremities: No swelling or edema. SKIN: He has dry, flaky skin as well as resolving acneiform rash of the face upper chest and upper back. 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 No focal motor weakness. MUSCULOSKELETAL: NNo muscle wasting. ASSESSMENT/PLAN: (C18.9) Malignant neoplasm of colon, unspecified part of colon (HCC) (primary encounter diagnosis) (C78.6, C80.1) Peritoneal carcinomatosis (HCC) (C78.7) Metastasis to liver (HCC) (L27.0) Drug rash Assessment: -KPS is 80-90%. -MMR proficient. [facility] sent previous testing that had been done at the time of his surgery 02/2016. Please see scanned document. -He tolerated chemotherapy and Vectibix at half dose very well. He had wanted to receive chemotherapy once a month. He now has partial bowel obstruction. I had a very open and nicky discussion with the patient and his again today regarding the strategy. I explained that if there is any hope of extending his life in palliating his symptoms better then we need to keep chemotherapy on an every two-week schedule. Admittedly this is difficult for him given the significant side effects he's had with Vectibix before but with a preemptive strategy of topical hydrocortisone therapy and starting minocycline the side effects were not as bad this past cycle. Also I explained I'd like to start him on dexamethasone twice a day for several days. Advise clear liquid diet as well for the next several days. Hopefully he'll have some relief from the partial small bowel obstruction later this week. If not we may have to consider admission for appropriate care at that point. Plan: -As above. 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 -No unusual bleeding episodes. Plan: -Continue Xarelto. 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 (HCC) [I26.92] Order(s):dexamethasone (DECADRON) 4 mg tabletTake 1 tablet by mouth twice daily.Disp: 10 tabletRfl: 0 Follow-up and Disposition History Recorded Prescriptions as of 02/25/2018 Sig: AMOXICILLIN 875 MG-POTASSIUM * Take 1 tablet by mouth twice * MINOCYCLINE 100 MG CAPSULE Take 1 capsule by mouth twice* POTASSIUM CHLORIDE ER 20 MEQ * Take 1 tablet by mouth three * RIVAROXABAN 20 MG TABLET Take 1 tablet by mouth daily * OLANZAPINE 10 MG TABLET Take 1 tablet by mouth daily * ONDANSETRON HCL 8 MG TABLET Take 1 tablet by mouth every * DEXAMETHASONE 4 MG TABLET Take 1 tablet by mouth twice * Medication notes this encounter AMOXICILLIN 875 MG-POTASSIUM CLAVULANATE 125 MG TABLET >> Daisy Verduzco LPN 02/25/2018 8:59 AM >> DAISY VERDUZCO LPN Feb 25, 2018 8:59 AM Hasn't started yet POTASSIUM CHLORIDE ER 20 MEQ TABLET,EXTENDED RELEASE(PART/CRYST) >> Daisy Verduzco LPN 02/25/2018 8:55 AM >> DAISY VERDUZCO LPN SunFeb 25, 2018 8:55 AM Taking once a day Problem List As Of Date 02/25/2018 Noted Resolved Colon cancer (HCC) [C18.9] 08/21/2017 Peritoneal carcinomatosis (HCC) [C78.6, C80.1] INVALID FOR* Metastasis to liver (HCC) [C78.7] INVALID FOR* More... Drug rash [L27.0] INVALID FOR* Malignant neoplasm of sigmoid colon (HCC) [C18.*INVALID FOR* Chronic saddle pulmonary embolism without acute*INVALID FOR* Visit Notes: >> Daisy Verduzco AL SunFeb 25, 2018 8:55 AM Status: Signed Est patient. Discuss recent labs. Was here Sunday with c/o abdominal pain. Took Mag Citrate Sunday afternoon and Sunday morning without relief of pain. Was admitted to [facility] Sunday for partial bowel obstruction and was discharged this morning. Daisy Luba MELENDEZ Encounter Status:Closed by GERALDO STONE DO on 02/25/18 [place] ABS GR + CBC Collected: 02/25/2018 Status: F Source: [place] 8:53 AM [facility] REPOSITORY TYPE CODE TESTS RESULT OUT OF REFERENCE UNITS RANGE LAB WWBC 3.70-11.00 k/uL [place] WBC 4.68 LAB WRBC 4.20-6.00 m/uL Low [place] RBC 3.94 LAB WHGB 13.0-17.0 g/dL Low [place] Hemoglobin 11.9 LAB WHCT 39.0-51.0 % Low [place] Hematocrit 35.7 LAB WMCV 80.0-100.0 fL [place] MCV 90.6 LAB WMCH 26.0-34.0 pg [place] MCH 30.2 LAB WMCHC 30.5-36.0 g/dL [place] MCHC 33.3 LAB WRDW 11.5-15.0 % [place] RDW 12.9 LAB WPLT 150-400 k/uL [place] Platelet Cnt 187 LAB WMPV 9.0-12.7 fL [place] MPV 9.1 Result Comment: Test performed at: [facility] [place], [address] [place] [address]. LAB ABGRAN 1.45-7.50 k/uL Absol Gran 2.85 Count BMP PLUS [facility]HC Collected: 02/25/2018 Status: F Source: [place] 8:53 AM [facility] REPOSITORY TYPE CODE TESTS RESULT OUT OF REFERENCE UNITS RANGE LAB NA 128-145 mmol/L Sodium 135 LAB K 3.6-5.1 mmol/L Potassium 3.9 LAB CL 98-108 mmol/L Chloride 104 LAB CO2 18-33 mmol/L CO2 29 LAB CRET 0.6-1.2 mg/dL Creatinine 1.00 LAB BUN 7-22 mg/dL BUN 14 LAB GLU 73-118 mg/dL Glucose 101 LAB CA 8.0-10.3 mg/dL Calcium, Total 9.4 LAB MG 1.6-2.3 mg/dL Magnesium 2.1 LAB AGAP 9-18 mmol/L Low Anion Gap 2 LAB GFRAA eGFR- >60 Amer. LAB GFRNAA . eGFR-All Other Races >60 Result Comment: eGFR (Estimated GFR) Units of measure: mL/min/1.73 meters squared eGFR is derived from the reexpressed MDRD Study equation using the following parameters: serum creatinine, age, gender and race. The creatinine assay has been calibrated to be traceable to IDMS. An eGFR <60 mL/min/1.73m2 for >3 months is consistent with chronic kidney disease. Refer to KDOQI guidelines for clinical interpretation. In patients with unstable renal function, e.g. those with acute kidney injury, the eGFR may not accurately reflect actual GFR. HEPATIC FUNCTN PANEL Collected: 02/25/2018 Status: F Source: [place] 8:53 AM [facility] REPOSITORY TYPE CODE TESTS RESULT OUT OF REFERENCE UNITS RANGE LAB ALB 3.9-4.9 g/dL Low Albumin 3.5 LAB TBIL 0.2-1.3 mg/dL Bilirubin, Total 0.7 LAB CBIL <0.2 mg/dL High Bilirubin,Conjuga 0.2 [place] LAB ALKP 36-108 U/L Alkaline Phosphatase 75 LAB AST 14-40 U/L AST 22 LAB ALT 10-54 U/L ALT 17 LAB TP 6.3-8.0 g/dL Low Protein, Total 6.1 Performed By: #### HFP, CEA #### [facility] [address] [place], [place] [address] CEA Collected: 02/25/2018 Status: F Source: [place] 8:53 AM [facility] REPOSITORY TYPE CODE TESTS RESULT OUT OF RANGE REFERENCE UNITS LAB CEA 0.0-2.9 ng/mL High CEA 9.9 Result Comment: Test analyzed by the Brandon DxI method. Performed By: #### HFP, CEA #### [facility] [address] [place], [place] [address] ABDOMEN 2 VIEWS Observed: 02/24/2018 Status: F Source: [place] 12:41 PM [facility] REPOSITORY [address] [address] Patient: BECCA MAGANA Phone#: : 1955 Age: 62 Gender: M Pt. Type: Out Account: [id number] Location: [facility] Ordering: IZABELA CHINO Exam Date: 02/24/2018/11:18 Family Phys: MARIELY EPI Charge Code: [id number] Physician: [place] Order #: [id number] DLP Dose#: PROCEDURE: ABDOMEN 2 VIEWS COMPARISON: None. INDICATIONS: Abdominal pain FINDINGS: BOWEL GAS PATTERN: There is moderate gaseous distention of small large bowel with air-fluid levels. There is little air identified at the level of the rectosigmoid colon. Obstruction at the descending colon level is suspected. There is no evidence of free intraperitoneal air. CALCIFICATIONS: None significant. OTHER: Degenerative changes of the spine are present. Surgical sutures present in the right lower abdomen. CONCLUSION: 1. Findings consistent with obstruction, possibly at the descending colon level. Dictated by: Yennifer Milligan MD on 02/25/2018 at 8:20 Approved by: Yennifer Milligan MD on 02/25/2018 at 8:20 CMP WITH EGFR Collected: 02/24/2018 Status: F Source: [place] 12:20 PM [facility] REPOSITORY TYPE CODE TESTS RESULT OUT OF RANGE REFERENCE UNITS LAB CMP with eGFR(LOINC) CMP with eGFR Result Comment: COMPREHENSIVE METABOLIC PANEL LAB SODIUM(LOINC) 136 - 145 mmol/l SODIUM 137 LAB POTASSIUM(LOINC) 3.5 - 5.1 mmol/L POTASSIUM 4.3 LAB CHLORIDE(LOINC) 98 - 107 mmol/L CHLORIDE 100 LAB CO2(LOINC) 21.0 - mmol/L 31.0 CO2 21.9 LAB GLUCOSE(LOINC) 74 - 106 mg/dl GLUCOSE 88 LAB BUN(LOINC) 6 - 20 mg/dl BUN 18 LAB CREATININE(LOINC) 0.7 - 1.3 mg/dl CREATININE 0.9 LAB AST/SGOT(LOINC) 13 - 39 U/L AST/SGOT 19 LAB ALK PHOS(LOINC) 38 - 126 U/L ALK PHOS 79 LAB CALCIUM(LOINC) 8.6 - mg/dl 10.2 CALCIUM 9.5 LAB TOTAL PROTEIN(LOINC) 6.4 - 8.3 g/dl TOTAL PROTEIN 6.6 LAB ALBUMIN(LOINC) 3.4 - 4.8 g/dL ALBUMIN 4.1 LAB GLOBULIN(LOINC) 1.5 - 3.8 G/DL GLOBULIN 2.5 LAB A/G RATIO(LOINC) 0.9 - 1.6 A/G RATIO 1.6 LAB TOTAL BILI(LOINC) 0.0 - 1.5 mg/dl TOTAL BILI 0.9 LAB B/C RATIO(LOINC) 0 - 30 ratio B/C RATIO 20 LAB ALT/SGPT(LOINC) 10 - 40 U/L ALT/SGPT 14 LAB ANION GAP(LOINC) 10 - 20 mmol/L ANION GAP 19 LAB AGE(LOINC) years AGE 62 LAB eGFR(LOINC) 60 - 999 ML/MINUTE eGFR >60 LAB eGFR(AA)(LOINC) 60 - 999 ML/MINUTE eGFR(AA) >60 Result Comment: ACCORDING TO THE NATIONAL KIDNEY DISEASE EDUCATION PROGRAM(NKDE), A NORMAL eGFR IS A VALUE GREATER THAN OR EQUAL TO 60 ML/MIN/1.73 SQ METERS. CHRONIC KIDNEY DISEASE: <60mL/MIN/1.73 SQ METERS KIDNEY FAILURE: <15mL/MIN/1.73 SQ METERS THIS TEST SHOULD ONLY BE USED FOR PATIENTS 18 YEARS OF AGE AND OLDER. Performed By: #### [id number] #### [facility],[address] [place] [id number] CEA [QUEST] Collected: 02/24/2018 Status: F Source: [facility] 12:20 PM [facility] REPOSITORY TYPE CODE TESTS RESULT OUT OF RANGE REFERENCE UNITS LAB CEA [QUEST](BALA NC) CEA [QUEST] Result Comment: _CEA_ CEA Reported: 02/27/2018 16:40 Status=F TEST RESULT FLAG RANGE UNITS CEA 6.3 H 0.0-2.4 ng/mL 02/27/18.1651.[facility].COMPLETE.AMRR .2039-6 CEA REFERENCE RANGE FOR SMOKERS/NON-SMOKERS Non-smokers: <2.5 ng/mL Smokers: <5.0 ng/mL This test was performed using the Siemens chemiluminescent method. Values obtained from different assay methods cannot be used inter- changeably. CEA levels, regardless of value, should not be interpreted as absolute evidence of the presence or absence of disease. Test Performed by Brittani Ashley, [facility], [address] [place] [address] Braydon Otoole M.D., Ph.D., Director of Laboratories , [facility] [id number] Performed By: #### [id number] #### [facility],[address] [place] [address] CBC Collected: 02/24/2018 Status: F Source: [facility] 11:19 AM [facility] REPOSITORY TYPE CODE TESTS RESULT OUT OF RANGE REFERENCE UNITS LAB CBC(LOINC) CBC Result Comment: CBC-COMPLETE BLOOD COUNT LAB WBC(LOINC) 4.5 - 10.8 x 10EE3/UL WBC 8.1 LAB RBC(LOINC) 4.50 - x 10EE6/UL 6.00 RBC 4.80 LAB HEMOGLOBIN(LOINC) 13.0 - g/dl 17.5 HEMOGLOBIN 14.8 LAB HEMATOCRIT(LOINC) 40.0 - % 52.0 HEMATOCRIT 42.8 LAB MCV(LOINC) 81 - 98 fl MCV 89 LAB MCH(LOINC) 27 - 33 pg MCH 31 LAB MCHC(LOINC) 32 - 36 X10 3 MCHC 35 LAB RDW/CV(LOINC) 12.0 - % 15.6 RDW/CV 14.3 LAB PLATELET(LOINC) 150 - 450 x10EE3/UL PLATELET 152 LAB MPV(LOINC) 6.4 - 10.5 fl MPV 8.8 Result Comment: AUTOMATED DIFFERENTIAL LAB NEUT %(LOINC) 46.0 - % 76.0 NEUT % 74.9 LAB LYMPH %(LOINC) 20.0 - % Low 45.0 LYMPH % 12.6 LAB MONOS %(LOINC) 0.0 - 10.0 % MONOS % 11.0 High LAB EO %(LOINC) 0.0 - 7.0 % EO % 1.0 LAB BASO %(LOINC) 0.0 - 2.0 % BASO % 0.5 LAB Lymph #(LOINC) 0.80 - x10EE3/ 2.80 UL Lymph # 1.00 LAB Neut #(LOINC) 1.50 - x10EE3/ 7.10 UL Neut # 6.10 LAB [place] #(LOINC) 0.20 - x10EE3/ 1.00 UL [place] # 0.90 LAB EO #(LOINC) 0.00 - x10EE3/ 0.50 UL EO # 0.10 LAB Baso #(LOINC) 0.00 - x10EE3/ 0.10 UL Baso # 0.00 LAB MANUAL DIFF(LOINC) MANUAL DIFF REVIEWED LAB MORPHOLOGY(LOIN C) MORPHOLOGY REVIEWED Result Comment: {CD] Performed By: #### [id number] #### [facility],[address] [place] [address] CR-ABDOMEN 2 VIEWS Observed: 02/24/2018 Status: F Source: [place] [facility] 12:00 AM [facility] REPOSITORY Images were obtained outside of [facility] [id number] XR ABD 2V SUPINE W Observed: 02/22/2018 Status: F Source: [place] UPR/DECUB/CTL 1:11 PM [facility] REPOSITORY * * *Final Report* * * DATE OF EXAM: Feb 22 2018 1:11PM WRX [id number] - XR ABD 2V SUPINE W UPR// / PROCEDURE REASON: multiple diagnoses * * * * Physician Interpretation * * * * ABDOMEN - 2 VIEWS: Indication: Abdominal pain. Views: Supine and upright. Comparison: 2016 Findings: DJD. Suture lines in the right pelvis. Mildly distended colon, few loops of mildly distended small bowel scattered air-fluid levels. Large amount fecal residue throughout the colon. Impression Ileus Large amount fecal residue throughout the colon Dyeing Machine Feeder: PSCB Transcribe Date/Time: Feb 22 2018 10:16P Dictated by : HYACINTH OLVERA DO This examination was interpreted and the report reviewed and electronically signed by: HYACINTH OLVERA DO on Feb 22 2018 10:17PM EST [id number] Observed: 02/22/2018 Status: COMPLETED Source: [place] 1:01 PM [facility] REPOSITORY HNO ID: [id number] Author: Dominique Lovett Service: (none) Author Type: (none) Type: Progress Notes Filed: 02/22/2018 1:12 PM Note Text: Radiology Service Progress Note PATIENT NAME: Becca Magana DATE OF SERVICE: February 22, 2018 TIME: 1:01 PM PATIENT IDENTITY VERIFICATION COMPLETED USING TWO (2) METHODS: Patient confirmed name verbally and Date of . PATIENT GENDER DATA: Male PATIENT RELEVANT IMPLANT DATA REVIEWED: Not Applicable RADIOLOGY DEPARTMENT: General X-ray: Exam(s) Completed: Abdomen X-Ray Abdomen with upright PERIPHERAL IV DATA: Not applicable SIGNED BY: Dominique Lovett February 22, 2018 1:01 PM PROGRESS Observed: 02/22/2018 Status: COMPLETED Source: [place] 12:38 PM [facility] REPOSITORY HNO ID: [id number] Author: Tatiana Cartagena Service: (none) Author Type: Nurse Practitioner Type: Progress Notes Filed: 02/22/2018 1:21 PM Note Text: Chief Complaint Patient presents with: Established Patient HPI: Becca Magana is a 62 year old male who presents here today for complaints of abd pain, nausea, no BM x past 2-[address] Stone's previous note: H/o developed abdominal pain around June 2014. His symptoms progressively worsened throughout the spring. He also began losing weight in the spring and this culminated in a hospitalization for what was thought to be diverticulitis in December 2014. He underwent a CT scan which was thought to demonstrated a left lower quadrant abscess. The drain was placed and he was treated with antibiotic treatment. Pain flared and a repeat CT scan on 01/24/15 demonstrated marked inflammatory phlegmonous changes of the proximal sigmoid colon. He therefore underwent a colonoscopy and sigmoid colon resection with lymph node dissection on 01/29/2015. The sigmoid colon was noted to be adherent to the anterior abdominal wall and small bowel. The final pathology demonstrated an invasive moderately differentiated adenocarcinoma, tumor extension through the colonic wall and involving the muscularis propria of the small bowel. The proximal margin resection had a small focus of tumor present at the serosal surface. None of 25 lymph nodes were involved. The patient went on to receive 12 cycles FOLFOX which she finished on 09/13/2015. ? Surveillance CT scan the abdomen and pelvis on January 06, 2016 demonstrated a small omental nodules. He was treated with 4 cycles of FOLFIRI and then underwent exploratory laparotomy, excision of peritoneal/liver/small bowel/mesenteric nodules, heated intraperitoneal chemotherapy (HIPEC) administration for 100 minutes, cystoscopy with bilateral ureteral stent placement on 05/22/2016. ? Pathology: 1. Small bowel peritoneal nodules, excision (A) - Organizing fibrous adhesions. - No evidence of malignancy. 2. Left liver nodule, biopsy (B) - Adenocarcinoma in liver, consistent with colonic primary. 3. Omentum, excision (C) - Infiltrating adenocarcinoma, consistent with colonic primary. 4. Left upper quadrant abdominal wall, biopsy (D) - Infiltrating adenocarcinoma, consistent with colonic primary. 5. Pelvic nodule and omentum, excision (E) - Infiltrating adenocarcinoma, consistent with colonic primary. - One lymph node, negative for malignancy (0/1). 6. Ileal nodule, excision (F) - Infiltrating adenocarcinoma, consistent with colonic primary. ? In end of July/first week of August this year he underwent repeat staging workup (CT and PET) which unfortunately showed liver metastasis and intra-abdominal metastases. ? He recently started back on chemotherapy with FOLFIRI and cetuximab. He's had 2 cycles to date. ? Previous therapy: 1) FOLFOX ?12 cycles completed 09/13/2015. 2) FOLFIRI x4 cycles. 3) Exploratory lap 04/2016 with HIPEC (mitomycin). ? Current therapy: 1) FOLFIRI (with Vectibix--side effects permitting). ? My abdomen gets tight and I stopped eating. The pain is still there but it's better. Pt. lowered his intake on Sun. Last BM on Sunday. He was able to sleep comfortably lastnight. This happened about a month ago. I took a laxative that I had left before my surgery and it got better. Appetite:I'm not eating much. Energy level:poor Denies fevers. Mouth:denies sores Resp:denies cough or sob, occ. arenas Cardiac:denies chest pain/palpitations GI:+abd pain as above, denies n/v, last BM 3 days ago :denies dysuria/hematuria Extrem:the abdominal pain goes to my back. denies pain elsewhere Neuro:neuropathy stable Skin:denies rashes/lesions Heme:denies bleeding The ROS is otherwise negative. Past medical history, appointments, medications, allergies reviewed. No changes. EXAM: BP 112/73 Pulse 108 Temp 37.3 ?C (99.1 ?F) (Oral) Wt 91.4 kg (201 lb 8 oz) BMI 28.30 kg/m? APPEARANCE Well appearing, alert, in no acute distress, well-hydrated, well nourished. MOUTH no mucositis HEART RRR with normal S1 and S2, no murmurs LUNG clear to auscultation LYMPH NODES No cervical lymphadenopathy, No supraclavicular lymphadenopathy and No axillary lymphadenopathy. ABDOMEN bowel sounds normoactive, soft although hard mass central with mild tenderness EXTREMITIES No edema NEURO Awake, alert and oriented x 3, Normal gait and No involuntary motions. SKIN Skin color, texture, turgor normal, no suspicious rashes or lesions ASSESSMENT/PLAN: 1. Malignant neoplasm of sigmoid colon (HCC) - ICD9: 153.3, ICD10: C18.7 (primary diagnosis) 2. Metastasis to liver (HCC) - ICD9: 197.7, ICD10: C78.7 3. Peritoneal carcinomatosis (HCC) - ICD9: 197.6, 199.1, ICD10: C78.6, C80.1 4. Lower abdominal pain - ICD9: 789.09, ICD10: R10.30 - ? constipation. - Abd series today. - Advised pt. to drink 1/2 bottle magnesium citrate today. Drink other half of mag. citrate tomorrow if still feels full. - If symptoms worsen go to ED. - Follow up as scheduled. - Pt. aware to call office with any questions/concerns. The patient indicates understanding of these issues and agrees with the plan. Discussed case with Dr. Stone who agrees with treatment plan. Tatiana Cartagena APRN.LEIGHA CNOVSP Observed: 02/22/2018 Status: COMPLETED Source: [place] 12:30 PM [facility] REPOSITORY Visit (SP) Office (HEMAWS) BECCA MAGANA ([id number]) 1955 M Date Time Provider Department 02/22/18 12:30 PM TATIANA CARTAGENA (STRUCTURAL WORKER) DAMASO During your visit today, we recorded the following information about you: Temperature Pulse Blood pressure Weight 99.1 degrees 108/minute 112/73 91.4 kg Daisy Verduzco LPN 02/22/2018 12:41 PM Signed Est patient. C/O abdominal pain that started Sunday. Started at 6/10. Decreased to 4/10 after he lessened his po intake. Appetite poor. C/O abdominal distention, last BM 2 days ago. Afebrile. Daisy Cartagena APRN.LEIGHA 02/22/2018 1:21 PM Signed Chief Complaint Patient presents with: Established Patient HPI: Becca Magana is a 62 year old male who presents here today for complaints of abd pain, nausea, no BM x past 2-[address] Stone's previous note: H/o developed abdominal pain around June 2014. His symptoms progressively worsened throughout the spring. He also began losing weight in the spring and this culminated in a hospitalization for what was thought to be diverticulitis in December 2014. He underwent a CT scan which was thought to demonstrated a left lower quadrant abscess. The drain was placed and he was treated with antibiotic treatment. Pain flared and a repeat CT scan on 01/24/15 demonstrated marked inflammatory phlegmonous changes of the proximal sigmoid colon. He therefore underwent a colonoscopy and sigmoid colon resection with lymph node dissection on 01/29/2015. The sigmoid colon was noted to be adherent to the anterior abdominal wall and small bowel. The final pathology demonstrated an invasive moderately differentiated adenocarcinoma, tumor extension through the colonic wall and involving the muscularis propria of the small bowel. The proximal margin resection had a small focus of tumor present at the serosal surface. None of 25 lymph nodes were involved. The patient went on to receive 12 cycles FOLFOX which she finished on 09/13/2015. ? Surveillance CT scan the abdomen and pelvis on January 06, 2016 demonstrated a small omental nodules. He was treated with 4 cycles of FOLFIRI and then underwent exploratory laparotomy, excision of peritoneal/liver/small bowel/mesenteric nodules, heated intraperitoneal chemotherapy (HIPEC) administration for 100 minutes, cystoscopy with bilateral ureteral stent placement on 05/22/2016. ? Pathology: 1. Small bowel peritoneal nodules, excision (A) - Organizing fibrous adhesions. - No evidence of malignancy. 2. Left liver nodule, biopsy (B) - Adenocarcinoma in liver, consistent with colonic primary. 3. Omentum, excision (C) - Infiltrating adenocarcinoma, consistent with colonic primary. 4. Left upper quadrant abdominal wall, biopsy (D) - Infiltrating adenocarcinoma, consistent with colonic primary. 5. Pelvic nodule and omentum, excision (E) - Infiltrating adenocarcinoma, consistent with colonic primary. - One lymph node, negative for malignancy (0/1). 6. Ileal nodule, excision (F) - Infiltrating adenocarcinoma, consistent with colonic primary. ? In end of July/first week of August this year he underwent repeat staging workup (CT and PET) which unfortunately showed liver metastasis and intra-abdominal metastases. ? He recently started back on chemotherapy with FOLFIRI and cetuximab. He's had 2 cycles to date. ? Previous therapy: 1) FOLFOX ?12 cycles completed 09/13/2015. 2) FOLFIRI x4 cycles. 3) Exploratory lap 04/2016 with HIPEC (mitomycin). ? Current therapy: 1) FOLFIRI (with Vectibix--side effects permitting). ? My abdomen gets tight and I stopped eating. The pain is still there but it's better. Pt. lowered his intake on Sun. Last BM on Sunday. He was able to sleep comfortably lastnight. This happened about a month ago. I took a laxative that I had left before my surgery and it got better. Appetite:I'm not eating much. Energy level:poor Denies fevers. Mouth:denies sores Resp:denies cough or sob, occ. arenas Cardiac:denies chest pain/palpitations GI:+abd pain as above, denies n/v, last BM 3 days ago :denies dysuria/hematuria Extrem:the abdominal pain goes to my back. denies pain elsewhere Neuro:neuropathy stable Skin:denies rashes/lesions Heme:denies bleeding The ROS is otherwise negative. Past medical history, appointments, medications, allergies reviewed. No changes. EXAM: BP 112/73 Pulse 108 Temp 37.3 ?C (99.1 ?F) (Oral) Wt 91.4 kg (201 lb 8 oz) BMI 28.30 kg/m? APPEARANCE Well appearing, alert, in no acute distress, well- hydrated, well nourished. MOUTH no mucositis HEART RRR with normal S1 and S2, no murmurs LUNG clear to auscultation LYMPH NODES No cervical lymphadenopathy, No supraclavicular lymphadenopathy and No axillary lymphadenopathy. ABDOMEN bowel sounds normoactive, soft although hard mass central with mild tenderness EXTREMITIES No edema NEURO Awake, alert and oriented x 3, Normal gait and No involuntary motions. SKIN Skin color, texture, turgor normal, no suspicious rashes or lesions ASSESSMENT/PLAN: 1. Malignant neoplasm of sigmoid colon (HCC) - ICD9: 153.3, ICD10: C18.7 (primary diagnosis) 2. Metastasis to liver (HCC) - ICD9: 197.7, ICD10: C78.7 3. Peritoneal carcinomatosis (HCC) - ICD9: 197.6, 199.1, ICD10: C78.6, C80.1 4. Lower abdominal pain - ICD9: 789.09, ICD10: R10.30 - ? constipation. - Abd series today. - Advised pt. to drink 1/2 bottle magnesium citrate today. Drink other half of mag. citrate tomorrow if still feels full. - If symptoms worsen go to ED. - Follow up as scheduled. - Pt. aware to call office with any questions/concerns. The patient indicates understanding of these issues and agrees with the plan. Discussed case with Dr. Stone who agrees with treatment plan. Tatiana Cartagena APRN.STRUCTURAL WORKER Referring Provider: SELF [[id number]] Allergies As of Date: 02/22/2018 (No Known Allergies) Date Reviewed: 02/22/2018 Reviewed by: Tatiana (Leigha) Mitzi - Fully Assessed Reason for Visit: Established Patient [175] Primary Visit Diagnosis:Malignant neoplasm of sigmoid colon (HCC) [C18.7] Other Visit Diagnoses:Metastasis to liver (HCC) [C78.7] Peritoneal carcinomatosis (HCC) [C78.6, C80.1] Lower abdominal pain [R10.30] Order(s):XR ABDOMEN 2V ROUTINE SUPINE W UPRIGHT/DECUB/CTL [[id number]] Order #: [id number] FUTURE Follow-up and Disposition History Recorded Prescriptions as of 02/22/2018 Sig: MINOCYCLINE 100 MG CAPSULE Take 1 capsule by mouth twice* POTASSIUM CHLORIDE ER 20 MEQ * Take 1 tablet by mouth three * RIVAROXABAN 20 MG TABLET Take 1 tablet by mouth daily * OLANZAPINE 10 MG TABLET Take 1 tablet by mouth daily * DEXAMETHASONE 4 MG TABLET Take 1 tablet by mouth twice * ONDANSETRON HCL 8 MG TABLET Take 1 tablet by mouth every * Problem List As Of Date 02/22/2018 Noted Resolved Colon cancer (HCC) [C18.9] 08/21/2017 Peritoneal carcinomatosis (HCC) [C78.6, C80.1] INVALID FOR* Metastasis to liver (HCC) [C78.7] INVALID FOR* More... Drug rash [L27.0] INVALID FOR* Malignant neoplasm of sigmoid colon (HCC) [C18.*INVALID FOR* Chronic saddle pulmonary embolism without acute*INVALID FOR* Visit Notes: >> Daisy Verduzco LPN SunFeb 22, 2018 12:33 PM Status: Signed Est patient. C/O abdominal pain that started Sunday. Started at 6/10. Decreased to 4/10 after he lessened his po intake. Appetite poor. C/O abdominal distention, last BM 2 days ago. Afebrile. Daisy Verduzco LPN Encounter Status:Closed by TATIANA CARTAGENA CNP on 02/22/18 R[place]O ABS GR + CBC Collected: 01/29/2018 Status: F Source: [place] 7:55 AM [facility] REPOSITORY TYPE CODE TESTS RESULT OUT OF REFERENCE UNITS RANGE LAB WWBC 3.70-11.00 k/uL [place] WBC 5.16 LAB WRBC 4.20-6.00 m/uL Low [place] RBC 3.87 LAB WHGB 13.0-17.0 g/dL Low [place] Hemoglobin 11.8 LAB WHCT 39.0-51.0 % Low [place] Hematocrit 35.7 LAB WMCV 80.0-100.0 fL [place] MCV 92.2 LAB WMCH 26.0-34.0 pg [place] MCH 30.5 LAB WMCHC 30.5-36.0 g/dL [place] MCHC 33.1 LAB WRDW 11.5-15.0 % [place] RDW 13.0 LAB WPLT 150-400 k/uL [place] Platelet Cnt 168 LAB WMPV 9.0-12.7 fL [place] MPV 9.1 Result Comment: Test performed at: [facility] [place] [facility], [address] [place] [address] Rd[address] [place] [address]. LAB ABGRAN 1.45-7.50 k/uL Absol Gran 3.07 Count BMP PLUS FHC Collected: 01/29/2018 Status: F Source: [place] 7:55 AM [facility] REPOSITORY TYPE CODE TESTS RESULT OUT OF REFERENCE UNITS RANGE LAB NA 128-145 mmol/L Sodium 140 LAB K 3.6-5.1 mmol/L Potassium 3.7 LAB CL 98-108 mmol/L Chloride 106 LAB CO2 18-33 mmol/L CO2 26 LAB CRET 0.6-1.2 mg/dL Creatinine 0.80 LAB BUN 7-22 mg/dL BUN 14 LAB GLU 73-118 mg/dL Glucose 110 LAB CA 8.0-10.3 mg/dL Calcium, Total 9.3 LAB MG 1.6-2.3 mg/dL Magnesium 1.7 LAB AGAP 9-18 mmol/L Low Anion Gap 8 LAB GFRAA eGFR- >60 Amer. LAB GFRNAA . eGFR-All Other Races >60 Result Comment: eGFR (Estimated GFR) Units of measure: mL/min/1.73 meters squared eGFR is derived from the reexpressed MDRD Study equation using the following parameters: serum creatinine, age, gender and race. The creatinine assay has been calibrated to be traceable to IDMS. An eGFR <60 mL/min/1.73m2 for >3 months is consistent with chronic kidney disease. Refer to KDOQI guidelines for clinical interpretation. In patients with unstable renal function, e.g. those with acute kidney injury, the eGFR may not accurately reflect actual GFR. HEPATIC FUNCTN PANEL Collected: 01/29/2018 Status: F Source: [place] 7:55 AM [facility] REPOSITORY TYPE CODE TESTS RESULT OUT OF REFERENCE UNITS RANGE LAB ALB 3.9-4.9 g/dL Albumin 4.3 LAB TBIL 0.2-1.3 mg/dL Bilirubin, Total 0.4 LAB CBIL <0.2 mg/dL Bilirubin,Conjuga <0.2 [place] LAB ALKP 36-108 U/L Alkaline Phosphatase 68 LAB AST 14-40 U/L AST 19 LAB ALT 10-54 U/L ALT 15 LAB TP 6.3-8.0 g/dL Protein, Total 6.3 Performed By: #### HFP, CEA #### [facility] [email or web address] [place], [place] [address] CEA Collected: 01/29/2018 Status: F Source: [place] 7:55 AM [facility] REPOSITORY TYPE CODE TESTS RESULT OUT OF RANGE REFERENCE UNITS LAB CEA 0.0-2.9 ng/mL High CEA 12.4 Result Comment: Test analyzed by the [employer] DxI method. Performed By: #### HFP, CEA #### [facility] [email or web address] [place], [place] [address] PROGRESS Observed: 01/17/2018 Status: COMPLETED Source: [place] 3:09 PM [facility] REPOSITORY HNO ID: [id number] Author: Geraldo Stone Service: (none) Author Type: Physician Type: Progress Notes Filed: 01/17/2018 3:41 PM Note Text: Diagnosis: 1) Metastatic recurrence of stage III colon cancer. MSI stable. BRAF - A sequence change: c.1781A>G (p.[id number]) was detected at approximately 48% allele proportion. [Reference sequence: ([id number]_[id number])]. KRAS - No variant detected [Reference?sequence: ([id number]_[id number])]. NRAS - No variant detected [Reference sequence: (NM_[id number])]. Patient referred by ongoing management of metastatic colon cancer. HPI: The patient is a 62 yo male who developed abdominal pain around June 2014. His symptoms progressively worsened throughout the spring. He also began losing weight in the spring and this culminated in a hospitalization for what was thought to be diverticulitis in December 2014. He underwent a CT scan which was thought to demonstrated a left lower quadrant abscess. The drain was placed and he was treated with antibiotic treatment. Pain flared and a repeat CT scan on 01/24/15 demonstrated marked inflammatory phlegmonous changes of the proximal sigmoid colon. He therefore underwent a colonoscopy and sigmoid colon resection with lymph node dissection on 01/29/2015. The sigmoid colon was noted to be adherent to the anterior abdominal wall and small bowel. The final pathology demonstrated an invasive moderately differentiated adenocarcinoma, tumor extension through the colonic wall and involving the muscularis propria of the small bowel. The proximal margin resection had a small focus of tumor present at the serosal surface. None of 25 lymph nodes were involved. The patient went on to receive 12 cycles FOLFOX which she finished on 09/13/2015. Surveillance CT scan the abdomen and pelvis on January 06, 2016 demonstrated a small omental nodules. He was treated with 4 cycles of FOLFIRI and then underwent exploratory laparotomy, excision of peritoneal/liver/small bowel/mesenteric nodules, heated intraperitoneal chemotherapy (HIPEC) administration for 100 minutes, cystoscopy with bilateral ureteral stent placement on 05/22/2016. Pathology: 1. Small bowel peritoneal nodules, excision (A) - Organizing fibrous adhesions. - No evidence of malignancy. 2. Left liver nodule, biopsy (B) - Adenocarcinoma in liver, consistent with colonic primary. 3. Omentum, excision (C) - Infiltrating adenocarcinoma, consistent with colonic primary. 4. Left upper quadrant abdominal wall, biopsy (D) - Infiltrating adenocarcinoma, consistent with colonic primary. 5. Pelvic nodule and omentum, excision (E) - Infiltrating adenocarcinoma, consistent with colonic primary. - One lymph node, negative for malignancy (0/1). 6. Ileal nodule, excision (F) - Infiltrating adenocarcinoma, consistent with colonic primary. In end of July/first week of August this year he underwent repeat staging workup (CT and PET) which unfortunately showed liver metastasis and intra-abdominal metastases. He recently started back on chemotherapy with FOLFIRI and cetuximab. He's had 2 cycles to date. Previous therapy: 1) FOLFOX ?12 cycles completed 09/13/2015. 2) FOLFIRI x4 cycles. 3) Exploratory lap 04/2016 with HIPEC (mitomycin). Current therapy: 1) FOLFIRI (with Vectibix--side effects permitting). Interim history: He last received Vectibix on 10/31/2017. Following that dose he had noticeable decrease in disease burden on physical exam. Also CT scans in November suggested response as well. He returns from vacation. He's been feeling well with the exception of abdominal pain. He did not require narcotic medication. He found that while he was on his cruise he does state smaller portions and that seemed to help the pain rather significantly. He says his bowels are working normally. No nausea or vomiting. No episodes of jaundice. Tolerating Xarelto well with no unusual bleeding or unexplained bruising. Symptoms from neuropathy remain stable. PMH, medications and allergies as below personally reviewed by me today. Any changes documented in appropriate section. ROS: Constitutional: Denies episodes night sweats. Neuro: Denies HIDALGO, vertigo, dizziness and imbalance. HEENT: No recent change in voice, vision or hearing. Resp: Denies cough, wheeze and hemoptysis. Denies shortness of breath at rest. Denies ARENAS. CVS: Denies exertional chest pain, PND, orthopnea and LE edema. GI: Denies dysgeusia. Denies symptoms of stomatitis. : Denies dysuria or gross hematuria. No symptoms of bladder outlet obstruction. Endo: Denies hot flashes. Denies polyuria and polydipsia. Denies heat and cold intolerance. Musculoskeletal: Denies bone, back, joint and muscular pain. Derm: Denies jaundice and diffuse pruritis. Heme: See above. Psych: Normal mood. PHYSICAL EXAM: Vitals: Blood pressure 112/69, pulse 70, temperature 36.8 ?C (98.2 ?F), temperature source Tympanic, weight 91.6 kg (202 lb). Well-appearing and in no acute distress. EYES: Sclerae are anicteric bilaterally. ENT: Oral mucosa is unremarkable. There is no sign of thrush or mucositis. NECK: Supple. No enlargement of thyroid. LYMPHATIC: There is no palpable cervical, supraclavicular, axillary or inguinal adenopathy. RESPIRATORY: Inspiratory breath sounds are of normal intensity in all [place]. No rales, wheezes or rhonchi. Expiratory phase is normal. CARDIOVASCULAR: Rhythm is regular. Normal intensity S1/S2. There is no gallop or murmur. ABDOMEN: The abdomen is nondistended. No organomegaly. The mass in the midline just above the umbilicus is stable. Extremities: No swelling or edema. SKIN: He has dry, flaky skin as well as resolving acneiform rash of the face upper chest and upper back. 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 No focal motor weakness. MUSCULOSKELETAL: NNo muscle wasting. ASSESSMENT/PLAN: (C18.9) Malignant neoplasm of colon, unspecified part of colon (HCC) (primary encounter diagnosis) (C78.6, C80.1) Peritoneal carcinomatosis (HCC) (C78.7) Metastasis to liver (HCC) (L27.0) Drug rash Assessment: -KPS is 80-90%. -MMR proficient. [facility] sent previous testing that had been done at the time of his surgery 02/2016. Please see scanned document. -Detailed in longer discussion with patient and family again regarding which direction were going. He is obviously distressed about stopping chemotherapy but he is also very worried about the potential side effects. I suggested that we resume treatment with FOLFIRI and 50% dose reduction in Vectibix. Also he will prophylactically start applying hydrocortisone lotion and start back on minocycline 4 days prior to undergoing treatment. Our tentative plan for now is to do cycles once a month. We will continue monitoring CEA and obtain scans when appropriate. Plan: -As above. -Continue olanzapine and dexamethasone for nausea. 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 -No unusual bleeding episodes. Plan: -Continue Xarelto. Geraldo Stone DO CNOVSP Observed: 01/17/2018 Status: COMPLETED Source: [place] 3:00 PM [facility] REPOSITORY Visit (SP) Office (HEMAWS) BECCA MAGANA ([id number]) 1955 M Date Time Provider Department 01/17/18 3:00 PM GERALDO STONE During your visit today, we recorded the following information about you: Temperature Pulse Blood pressure Weight 98.2 degrees 70/minute 112/69 91.6 kg Tika Razo Ma 01/17/2018 3:12 PM Signed Established Patient, Discuss POC Tika Dung Stone DO 01/17/2018 3:41 PM Signed Diagnosis: 1) Metastatic recurrence of stage III colon cancer. MSI stable. BRAF - A sequence change: c.1781A>G (p.[id number]) was detected at approximately 48% allele proportion. [Reference sequence: (NM_004333.4)]. KRAS - No variant detected [Reference?sequence: ([id number]_004985.4)]. NRAS - No variant detected [Reference sequence: (NM_002524.4)]. Patient referred by ongoing management of metastatic colon cancer. HPI: The patient is a 62 yo male who developed abdominal pain around June 2014. His symptoms progressively worsened throughout the spring. He also began losing weight in the spring and this culminated in a hospitalization for what was thought to be diverticulitis in December 2014. He underwent a CT scan which was thought to demonstrated a left lower quadrant abscess. The drain was placed and he was treated with antibiotic treatment. Pain flared and a repeat CT scan on 01/24/15 demonstrated marked inflammatory phlegmonous changes of the proximal sigmoid colon. He therefore underwent a colonoscopy and sigmoid colon resection with lymph node dissection on 01/29/2015. The sigmoid colon was noted to be adherent to the anterior abdominal wall and small bowel. The final pathology demonstrated an invasive moderately differentiated adenocarcinoma, tumor extension through the colonic wall and involving the muscularis propria of the small bowel. The proximal margin resection had a small focus of tumor present at the serosal surface. None of 25 lymph nodes were involved. The patient went on to receive 12 cycles FOLFOX which she finished on 09/13/2015. Surveillance CT scan the abdomen and pelvis on January 06, 2016 demonstrated a small omental nodules. He was treated with 4 cycles of FOLFIRI and then underwent exploratory laparotomy, excision of peritoneal/liver/small bowel/mesenteric nodules, heated intraperitoneal chemotherapy (HIPEC) administration for 100 minutes, cystoscopy with bilateral ureteral stent placement on 05/22/2016. Pathology: 1. Small bowel peritoneal nodules, excision (A) - Organizing fibrous adhesions. - No evidence of malignancy. 2. Left liver nodule, biopsy (B) - Adenocarcinoma in liver, consistent with colonic primary. 3. Omentum, excision (C) - Infiltrating adenocarcinoma, consistent with colonic primary. 4. Left upper quadrant abdominal wall, biopsy (D) - Infiltrating adenocarcinoma, consistent with colonic primary. 5. Pelvic nodule and omentum, excision (E) - Infiltrating adenocarcinoma, consistent with colonic primary. - One lymph node, negative for malignancy (0/1). 6. Ileal nodule, excision (F) - Infiltrating adenocarcinoma, consistent with colonic primary. In end of July/first week of August this year he underwent repeat staging workup (CT and PET) which unfortunately showed liver metastasis and intra-abdominal metastases. He recently started back on chemotherapy with FOLFIRI and cetuximab. He's had 2 cycles to date. Previous therapy: 1) FOLFOX ?12 cycles completed 09/13/2015. 2) FOLFIRI x4 cycles. 3) Exploratory lap 04/2016 with HIPEC (mitomycin). Current therapy: 1) FOLFIRI (with Vectibix--side effects permitting). Interim history: He last received Vectibix on 10/31/2017. Following that dose he had noticeable decrease in disease burden on physical exam. Also CT scans in November suggested response as well. He returns from vacation. He's been feeling well with the exception of abdominal pain. He did not require narcotic medication. He found that while he was on his cruise he does state smaller portions and that seemed to help the pain rather significantly. He says his bowels are working normally. No nausea or vomiting. No episodes of jaundice. Tolerating Xarelto well with no unusual bleeding or unexplained bruising. Symptoms from neuropathy remain stable. PMH, medications and allergies as below personally reviewed by me today. Any changes documented in appropriate section. ROS: Constitutional: Denies episodes night sweats. Neuro: Denies HIDALGO, vertigo, dizziness and imbalance. HEENT: No recent change in voice, vision or hearing. Resp: Denies cough, wheeze and hemoptysis. Denies shortness of breath at rest. Denies ARENAS. CVS: Denies exertional chest pain, PND, orthopnea and LE edema. GI: Denies dysgeusia. Denies symptoms of stomatitis. : Denies dysuria or gross hematuria. No symptoms of bladder outlet obstruction. Endo: Denies hot flashes. Denies polyuria and polydipsia. Denies heat and cold intolerance. Musculoskeletal: Denies bone, back, joint and muscular pain. Derm: Denies jaundice and diffuse pruritis. Heme: See above. Psych: Normal mood. PHYSICAL EXAM: Vitals: Blood pressure 112/69, pulse 70, temperature 36.8 ?C (98.2 ?F), temperature source Tympanic, weight 91.6 kg (202 lb). Well-appearing and in no acute distress. EYES: Sclerae are anicteric bilaterally. ENT: Oral mucosa is unremarkable. There is no sign of thrush or mucositis. NECK: Supple. No enlargement of thyroid. LYMPHATIC: There is no palpable cervical, supraclavicular, axillary or inguinal adenopathy. RESPIRATORY: Inspiratory breath sounds are of normal intensity in all woodruff. No rales, wheezes or rhonchi. Expiratory phase is normal. CARDIOVASCULAR: Rhythm is regular. Normal intensity S1/S2. There is no gallop or murmur. ABDOMEN: The abdomen is nondistended. No organomegaly. The mass in the midline just above the umbilicus is stable. Extremities: No swelling or edema. SKIN: He has dry, flaky skin as well as resolving acneiform rash of the face upper chest and upper back. 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 No focal motor weakness. MUSCULOSKELETAL: NNo muscle wasting. ASSESSMENT/PLAN: (C18.9) Malignant neoplasm of colon, unspecified part of colon (HCC) (primary encounter diagnosis) (C78.6, C80.1) Peritoneal carcinomatosis (HCC) (C78.7) Metastasis to liver (HCC) (L27.0) Drug rash Assessment: -KPS is 80-90%. -MMR proficient. [facility] sent previous testing that had been done at the time of his surgery 02/2016. Please see scanned document. -Detailed in longer discussion with patient and family again regarding which direction were going. He is obviously distressed about stopping chemotherapy but he is also very worried about the potential side effects. I suggested that we resume treatment with FOLFIRI and 50% dose reduction in Vectibix. Also he will prophylactically start applying hydrocortisone lotion and start back on minocycline 4 days prior to undergoing treatment. Our tentative plan for now is to do cycles once a month. We will continue monitoring CEA and obtain scans when appropriate. Plan: -As above. -Continue olanzapine and dexamethasone for nausea. 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 -No unusual bleeding episodes. Plan: -Continue Xarelto. Geraldo Stone DO Referring Provider: GERALDO STONE [[id number]] Allergies As of Date: 01/17/2018 (No Known Allergies) Date Reviewed: 01/17/2018 Reviewed by: Tika Razo Ma - Fully Assessed Reason for Visit: Established Patient [175] Primary Visit Diagnosis:Malignant neoplasm of sigmoid colon (HCC) [C18.7] Other Visit Diagnoses:Metastasis to liver (HCC) [C78.7] Peritoneal carcinomatosis (HCC) [C78.6, C80.1] Follow-up and Disposition History Recorded Prescriptions as of 01/17/2018 Sig: POTASSIUM CHLORIDE ER 20 MEQ * Take 1 tablet by mouth three * MINOCYCLINE 100 MG CAPSULE Take 1 capsule by mouth twice* RIVAROXABAN 20 MG TABLET Take 1 tablet by mouth daily * OLANZAPINE 10 MG TABLET Take 1 tablet by mouth daily * ONDANSETRON HCL 8 MG TABLET Take 1 tablet by mouth every * ENOXAPARIN 100 MG/ML SUBCUTAN* Inject 1 mL subcutaneously q * DEXAMETHASONE 4 MG TABLET Take 1 tablet by mouth twice * OMEPRAZOLE 20 MG CAPSULE,REJI* Take 2 capsules by mouth once* WKDISICUZOOJGOD-LXPNBFH-FRMOL* Take 10 mL by mouth every 4 h* Problem List As Of Date 01/17/2018 Noted Resolved Colon cancer (HCC) [C18.9] 08/21/2017 Peritoneal carcinomatosis (HCC) [C78.6, C80.1] INVALID FOR* Metastasis to liver (HCC) [C78.7] INVALID FOR* More... Drug rash [L27.0] INVALID FOR* Malignant neoplasm of sigmoid colon (HCC) [C18.*INVALID FOR* Chronic saddle pulmonary embolism without acute*INVALID FOR* Visit Notes: >> Tika Razo Ortiz Juliann Jan 17, 2018 3:01 PM Status: Signed Established Patient, Discuss POC Tika Razo Ortiz Encounter Status:Closed by GERALDO STONE DO on 01/17/18 ROLANDO ABS GR + CBC Collected: 12/12/2017 Status: F Source: [place] 10:38 AM [facility] REPOSITORY TYPE CODE TESTS RESULT OUT OF REFERENCE UNITS RANGE LAB WWBC 3.70-11.00 k/uL Low [place] WBC 3.08 LAB WRBC 4.20-6.00 m/uL Low [place] RBC 3.80 LAB WHGB 13.0-17.0 g/dL Low [place] Hemoglobin 11.8 LAB WHCT 39.0-51.0 % Low [place] Hematocrit 35.6 LAB WMCV 80.0-100.0 fL [place] MCV 93.7 LAB WMCH 26.0-34.0 pg [place] MCH 31.1 LAB WMCHC 30.5-36.0 g/dL [place] MCHC 33.1 LAB WRDW 11.5-15.0 % [place] RDW 14.4 LAB WPLT 150-400 k/uL Low [place] Platelet Cnt 148 LAB WMPV 9.0-12.7 fL [place] MPV 9.0 Result Comment: Test performed at: [facility] [place] [facility], [address] [place] [address] Rd[address] [place] [address]. LAB ABGRAN 1.45-7.50 k/uL Absol Gran 1.66 Count BMP PLUS [facility] Collected: 12/12/2017 Status: F Source: [place] 10:38 AM [facility] REPOSITORY TYPE CODE TESTS RESULT OUT OF REFERENCE UNITS RANGE LAB NA 128-145 mmol/L Sodium 143 LAB K 3.6-5.1 mmol/L Potassium 4.0 LAB CL 98-108 mmol/L Chloride High 110 LAB CO2 18-33 mmol/L CO2 25 LAB CRET 0.6-1.2 mg/dL Creatinine 1.20 LAB BUN 7-22 mg/dL BUN 12 LAB GLU 73-118 mg/dL Glucose High 132 LAB CA 8.0-10.3 mg/dL Calcium, Total 9.6 LAB MG 1.6-2.3 mg/dL Magnesium 1.7 LAB AGAP 9-18 mmol/L Low Anion Gap 8 LAB GFRAA eGFR- >60 Amer. LAB GFRNAA . eGFR-All Other Races >60 Result Comment: eGFR (Estimated GFR) Units of measure: mL/min/1.73 meters squared eGFR is derived from the reexpressed MDRD Study equation using the following parameters: serum creatinine, age, gender and race. The creatinine assay has been calibrated to be traceable to IDMS. An eGFR <60 mL/min/1.73m2 for >3 months is consistent with chronic kidney disease. Refer to KDOQI guidelines for clinical interpretation. In patients with unstable renal function, e.g. those with acute kidney injury, the eGFR may not accurately reflect actual GFR. HEPATIC FUNCTN PANEL Collected: 12/12/2017 Status: F Source: [place] 10:38 AM [facility] REPOSITORY TYPE CODE TESTS RESULT OUT OF REFERENCE UNITS RANGE LAB ALB 3.9-4.9 g/dL Albumin 4.2 LAB TBIL 0.2-1.3 mg/dL Bilirubin, Total 0.6 LAB CBIL <0.2 mg/dL Bilirubin,Conjuga <0.2 [place] LAB ALKP 36-108 U/L Alkaline Phosphatase 70 LAB AST 14-40 U/L AST 19 LAB ALT 10-54 U/L ALT 24 LAB TP 6.3-8.0 g/dL Protein, Total 6.5 Performed By: #### HFP, CEA #### [facility] [email or web address] [place] [id number] CEA Collected: 12/12/2017 Status: F Source: [place] 10:38 AM [facility] REPOSITORY TYPE CODE TESTS RESULT OUT OF RANGE REFERENCE UNITS LAB CEA 0.0-2.9 ng/mL High CEA 12.4 Result Comment: Test analyzed by the [employer] DxI method. Performed By: #### HFP, CEA #### [facility] [email or web address] [place], [place] [address] ROLANDO SALAZAR Collected: 12/04/2017 Status: F Source: [place] 10:15 AM [facility] REPOSITORY TYPE CODE TESTS RESULT OUT OF REFERENCE UNITS RANGE LAB NAWB 135-146 mmol/L Sodium, Whole 139 Bld LAB K1WB 3.5-5.0 mmol/L Potassium,Who 3.6 le Bld LAB CLWB 98-110 mmol/L Chloride, 104 Whole Bld LAB ICAWB 1.08-1.30 mmol/L Ionized 1.20 Calcium, WB Result Comment: Please note: This value represents ionized calcium not total calcium. LAB CO2WB 23-32 mmol/L TCO2, Whole 26 Blood LAB GLUWB 65-100 mg/dL High Glucose, 114 Whole Bld LAB BUNWB 10-25 mg/dL BUN, Whole 20 Blood LAB BCRET 0.70-1.40 mg/dL Creatinine,Wh 1.00 ole Bld LAB AGAPWB 0-15 mmol/L Anion Gap, 9 Whole Bld LAB GFRAA eGFR- >60 Amer. LAB GFRNAA . eGFR-All >60 Other Races Result Comment: eGFR (Estimated GFR) Units of measure: mL/min/1.73 meters squared eGFR is derived from the reexpressed MDRD Study equation using the following parameters: serum creatinine, age, gender and race. The creatinine assay has been calibrated to be traceable to IDMS. An eGFR <60 mL/min/1.73m2 for >3 months is consistent with chronic kidney disease. Refer to KDOQI guidelines for clinical interpretation. In patients with unstable renal function, e.g. those with acute kidney injury, the eGFR may not accurately reflect actual GFR. PROGRESS Observed: 12/03/2017 Status: COMPLETED Source: [place] 3:41 PM [facility] REPOSITORY [facility] ID: [id number] Author: Fina Bhatti Service: (none) Author Type: (none) Type: Progress Notes Filed: 12/03/2017 3:41 PM Note Text: Radiology Service Progress Note PATIENT NAME: Becca Magana DATE OF SERVICE: December 03, 2017 TIME: 3:41 PM PATIENT IDENTITY VERIFICATION COMPLETED USING TWO (2) METHODS: Patient confirmed name verbally and Date of . PATIENT GENDER DATA: Male PATIENT RELEVANT IMPLANT DATA REVIEWED: Not Applicable CONTRAST INDUCED NEPHROPATHY RISK FACTORS: Patient age > 60 years CREATININE: Creatinine Date Value Ref Range Status 12/03/2017 0.90 0.6 - 1.2 mg/dL Final 04/10/2017 0.98 0.73 - 1.22 mg/dL Final 02/28/2017 1.14 0.73 - 1.22 mg/dL Final Creatinine, Whole Blood (iSTAT) Date Value Ref Range Status 11/27/2017 0.90 0.70 - 1.40 mg/dL Final 11/14/2017 1.00 0.70 - 1.40 mg/dL Final 10/30/2017 1.00 0.70 - 1.40 mg/dL Final eGFR-All Other Races Date Value Ref Range Status 12/03/2017 >60 . Final Comment: eGFR (Estimated GFR) Units of measure: mL/min/1.73 meters squared eGFR is derived from the reexpressed MDRD Study equation using the following parameters: serum creatinine, age, gender and race. The creatinine assay has been calibrated to be traceable to IDMS. An eGFR <60 mL/min/1.73m2 for >3 months is consistent with chronic kidney disease. Refer to KDOQI guidelines for clinical interpretation. In patients with unstable renal function, e.g. those with acute kidney injury, the eGFR may not accurately reflect actual GFR. eGFR- Date Value Ref Range Status 12/03/2017 >60 Final P.O.C.T. RESULTS: POC done: Yes, See Lab Tab December 03, 2017 RADIOLOGIST NOTIFIED?: No ALLERGIES: Reviewed and unchanged CONTRAST ALLERGY: NO. 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 MQ: CTAP_3 Contrast: Other: 134 ml of Omnipaque 300 Oral: 50 ml of 50ML Omnipaque [address] Radiation dose: Integrated Dose-length product (DLP) for this visit = 1082 mGy*cm. CT Dose Reduction Employed: Automated exposure control (AEC) COMPARISON: CT 09/28/2017. RESULT: Liver: There is generalized decreased hepatic attenuation. No hepatic mass is noted. Biliary: No bile duct dilation. Gallbladder is absent. Spleen: Central superior splenic low attenuation consistent with a mass decreased in size measuring 2.4 x 1.6 cm versus 3.5 x 2.0 cm previously. No splenomegaly. Pancreas: No mass or duct dilation. Adrenals: No mass. Kidneys: Subcentimeter lesions that are too small to characterize but likely benign. GI tract: No dilation or wall thickening. Lymph nodes: No abdominal or pelvic lymphadenopathy. Mesentery/Peritoneum: Anterior peritoneal nodule upper pelvis slightly to the LEFT of midline 1.4 x 0.9 cm (8:92) previously 1.3 x 1.3 cm Retroperitoneum: No mass. Vasculature: The celiac axis and SMA are patent. The portal vein and branches, splenic vein, SMV, and hepatic veins are patent. No abdominal aortic or iliac artery aneurysm. Pelvis: No ascites Bones/Soft Tissues: Again noted is a mass in the ventral abdominal wall near the level of the umbilicus. It is slightly smaller than on the previous study measuring 4.7 x 2.1 cm (9:105) versus 5.1 x 2.8 cm previously. Postsurgical changes noted. There is also noted to be stable heterogeneity of the inferior aspect of the rectus muscle without discrete mass (for example 9:192). Lower thorax: CT chest dictated separately IMPRESSION: Mild diminishment of size of masses consistent with metastatic disease. Dyeing Machine Feeder: LALY Transcribe Date/Time: Dec 04 2017 10:50A Dictated by : ALEJO ESTRADA MD This examination was interpreted and the report reviewed and electronically signed by: ALEJO ESTRADA MD on Dec 04 2017 11:11AM EST [id number] CT CHEST W IVCON Observed: 12/03/2017 Status: F Source: [place] 3:39 PM [facility] REPOSITORY * * *Final Report* * * DATE OF EXAM: Dec 03 2017 3:39PM [facility] 0539 - CT CHEST W IVCON / PROCEDURE REASON: multiple diagnoses * * * * Physician Interpretation * * * * EXAMINATION: CHEST CT WITH CONTRAST Indication: Malignant neoplasm of sigmoid colon Secondary malignant neoplasm of retroperitoneum and peritoneum Malignant (primary) neoplasm, unspecified Secondary malignant neoplasm of liver and intrahepatic bile duct Technique: Spiral CT acquisition of the chest from the thoracic inlet to the upper abdomen following IV contrast. MQ: CTCWR_5 Contrast: 134 mL Omnipaque [address] Dose-Length Product: 1082 mGy*cm CT Dose Reduction Employed: Automated exposure control (AEC) Comparison: Type of study and date/time RESULT: Limitations: None. Lines, tubes, and devices: None. Lung parenchyma and pleura: No consolidation. No suspicious pulmonary nodule. Stable 7 mm nodule posterior RIGHT costophrenic sulcus with central calcification. There are a few linear densities in the lower lungs. No pleural effusion. Central airways are patent. Thoracic inlet, heart, and mediastinum: No lymphadenopathy in the axillary, mediastinal, or hilar regions. The thoracic aorta and main pulmonary artery are normal in caliber. The cardiac chambers are normal in size. No coronary artery atherosclerotic calcifications are noted, although the study is not optimized for coronary assessment. No pericardial effusion or thickening. Bones and soft tissues: No destructive bone lesion. Chest wall is unremarkable. Upper abdomen: No abnormality in the imaged upper abdomen. IMPRESSION: No findings suggestive of metastatic disease. Dyeing Machine Feeder: PSCB Transcribe Date/Time: Dec 04 2017 11:11A Dictated by : ALEJO ESTRADA MD This examination was interpreted and the report reviewed and electronically signed by: ALEJO ESTRADA MD on Dec 04 2017 11:17AM EST [id number] [facility] Collected: 12/03/2017 Status: F Source: [place] 2:46 PM [facility] REPOSITORY TYPE CODE TESTS RESULT OUT OF REFERENCE UNITS RANGE LAB NA 128-145 mmol/L Sodium 137 LAB K 3.6-5.1 mmol/L Low Potassium 2.9 LAB CL 98-108 mmol/L Chloride 107 LAB CO2 18-33 mmol/L CO2 26 LAB CRET 0.6-1.2 mg/dL Creatinine 0.90 LAB BUN 7-22 mg/dL BUN 19 LAB GLU 73-118 mg/dL Glucose 90 LAB CA 8.0-10.3 mg/dL Calcium, Total 8.8 LAB MG 1.6-2.3 mg/dL Magnesium 1.7 LAB AGAP 9-18 mmol/L Low Anion Gap 4 LAB GFRAA eGFR- >60 Amer. LAB GFRNAA . eGFR-All Other Races >60 Result Comment: eGFR (Estimated GFR) Units of measure: mL/min/1.73 meters squared eGFR is derived from the reexpressed MDRD Study equation using the following parameters: serum creatinine, age, gender and race. The creatinine assay has been calibrated to be traceable to IDMS. An eGFR <60 mL/min/1.73m2 for >3 months is consistent with chronic kidney disease. Refer to KDOQI guidelines for clinical interpretation. In patients with unstable renal function, e.g. those with acute kidney injury, the eGFR may not accurately reflect actual GFR. PROGRESS Observed: 11/27/2017 Status: COMPLETED Source: [place] 10:15 AM [facility] REPOSITORY [facility] ID: [id number] Author: Geraldo Stone Service: (none) Author Type: Physician Type: Progress Notes Filed: 11/27/2017 10:42 AM Note Text: Diagnosis: 1) Metastatic recurrence of stage III colon cancer. MSI stable. BRAF - A sequence change: [id number] ([id number]) was detected at approximately 48% allele proportion. [Reference sequence: ([id number])]. KRAS - No variant detected [Reference?sequence: ([id number])]. NRAS - No variant detected [Reference sequence: ([id number])]. Patient referred by ongoing management of metastatic colon cancer. HPI: The patient is a 61 yo male who developed abdominal pain around June 2014. His symptoms progressively worsened throughout the spring of 2014. He also began losing weight in the spring and this culminated in a hospitalization for what was thought to be diverticulitis in December 2014. He underwent a CT scan which was thought to demonstrated a left lower quadrant abscess. The drain was placed and he was treated with antibiotic treatment. Pain flared and a repeat CT scan on 01/24/15 demonstrated marked inflammatory phlegmonous changes of the proximal sigmoid colon. He therefore underwent a colonoscopy and sigmoid colon resection with lymph node dissection on 01/29/2015. The sigmoid colon was noted to be adherent to the anterior abdominal wall and small bowel. The final pathology demonstrated an invasive moderately differentiated adenocarcinoma, tumor extension through the colonic wall and involving the muscularis propria of the small bowel. The proximal margin resection had a small focus of tumor present at the serosal surface. None of 25 lymph nodes were involved. The patient went on to receive 12 cycles FOLFOX which she finished on 09/13/2015. Surveillance CT scan the abdomen and pelvis on January 06, 2016 demonstrated a small omental nodules. He was treated with 4 cycles of FOLFIRI and then underwent exploratory laparotomy, excision of peritoneal/liver/small bowel/mesenteric nodules, heated intraperitoneal chemotherapy (HIPEC) administration for 100 minutes, cystoscopy with bilateral ureteral stent placement on 05/22/2016. Pathology: 1. Small bowel peritoneal nodules, excision (A) - Organizing fibrous adhesions. - No evidence of malignancy. 2. Left liver nodule, biopsy (B) - Adenocarcinoma in liver, consistent with colonic primary. 3. Omentum, excision (C) - Infiltrating adenocarcinoma, consistent with colonic primary. 4. Left upper quadrant abdominal wall, biopsy (D) - Infiltrating adenocarcinoma, consistent with colonic primary. 5. Pelvic nodule and omentum, excision (E) - Infiltrating adenocarcinoma, consistent with colonic primary. - One lymph node, negative for malignancy (0/1). 6. Ileal nodule, excision (F) - Infiltrating adenocarcinoma, consistent with colonic primary. In end of July/first week of August this year he underwent repeat staging workup (CT and PET) which unfortunately showed liver metastasis and intra-abdominal metastases. He recently started back on chemotherapy with FOLFIRI and cetuximab. He's had 2 cycles to date. Previous therapy: 1) FOLFOX ?12 cycles completed 09/13/2015. 2) FOLFIRI x4 cycles. 3) Exploratory lap 04/2016 with HIPEC (mitomycin). Current therapy: 1) FOLFIRI (with Vectibix--side effects permitting). Interim history: Since last seen for office visit, he had 1 cycle of treatment with Vectibix and then a treatment 2 weeks ago without Vectibix. He experienced the onset of rather significant rash. He had tenderness in the corners of the mouth and some burning of the eyes. He had diarrhea for about 5 days. He has not been taking minocycline. He is not using any topical steroid or antibiotic cream. He is not using any moisturizing lotion. No further diarrhea. He is no longer having abdominal pain though. His appetite is normal. 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 No jaundice. Tolerating Xarelto well with no unusual bleeding or unexplained bruising. Symptoms from neuropathy are stable. PMH, medications and allergies as below personally reviewed by me today. Any changes documented in appropriate section. ROS: Constitutional: Denies episodes night sweats. Neuro: Denies HIDALGO, vertigo, dizziness and imbalance. HEENT: No recent change in voice, vision or hearing. Resp: Denies cough, wheeze and hemoptysis. Denies shortness of breath at rest. Denies ARENAS. CVS: Denies exertional chest pain, PND, orthopnea and LE edema. GI: Denies dysgeusia. Denies symptoms of stomatitis. : Denies dysuria or gross hematuria. No symptoms of bladder outlet obstruction. Endo: Denies hot flashes. Denies polyuria and polydipsia. Denies heat and cold intolerance. Musculoskeletal: Denies bone, back, joint and muscular pain. Derm: Denies jaundice and diffuse pruritis. Heme: See above. Psych: Normal mood. PHYSICAL EXAM: Vitals: Blood pressure 112/68, pulse 73, temperature 36.6 ?C (97.8 ?F), temperature source Oral, weight 97.1 kg (214 lb). Well-appearing and in no acute distress. EYES: Sclerae are anicteric bilaterally. ENT: Oral mucosa is unremarkable. There is no sign of thrush or mucositis. NECK: Supple. No enlargement of thyroid. LYMPHATIC: There is no palpable cervical, supraclavicular, axillary or inguinal adenopathy. RESPIRATORY: Inspiratory breath sounds are of normal intensity in all woodruff. No rales, wheezes or rhonchi. Expiratory phase is normal. CARDIOVASCULAR: Rhythm is regular. Normal intensity S1/S2. There is no gallop or murmur. ABDOMEN: The abdomen is nondistended. No organomegaly. The mass in the midline just above the umbilicus is now softer and smaller. Extremities: No swelling or edema. SKIN: He has dry, flaky skin as well as resolving acneiform rash of the face upper chest and upper back. 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 No focal motor weakness. MUSCULOSKELETAL: NNo muscle wasting. ASSESSMENT/PLAN: (C18.9) Malignant neoplasm of colon, unspecified part of colon (HCC) (primary encounter diagnosis) (C78.6, C80.1) Peritoneal carcinomatosis (HCC) (C78.7) Metastasis to liver (HCC) (L27.0) Drug rash Assessment: -KPS is 80%. -MMR proficient. [place] sent previous testing that had been done at the time of his surgery 02/2016. Please see scanned document. -We discussed again today the plan of using Vectibix when he feels his side effect profile has sufficiently resolved enough to tolerate another dose. When you next gets a dose, it will be 3 mg/kg. Plan: -Continue FOLFIRI with dose reduction of irinotecan and 5-fluorouracil. -Add panitumumab when able. -CT scan 12/03. -Monitor CEA. -Continue olanzapine and dexamethasone for nausea. 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 -No unusual bleeding episodes. Plan: -Continue Xarelto. Geraldo Stone, DO ROLANDO COX BMP Collected: 11/27/2017 Status: F Source: [place] 9:51 AM [facility] REPOSITORY TYPE CODE TESTS RESULT OUT OF REFERENCE UNITS RANGE LAB NAWB 135-146 mmol/L Sodium, Whole 143 Bld LAB K1WB 3.5-5.0 mmol/L Low Potassium,Who 3.0 le Bld LAB CLWB 98-110 mmol/L Chloride, 106 Whole Bld LAB ICAWB 1.08-1.30 mmol/L Ionized 1.21 Calcium, WB Result Comment: Please note: This value represents ionized calcium not total calcium. LAB CO2WB 23-32 mmol/L TCO2, Whole Blood 23 LAB GLUWB 65-100 mg/dL Glucose, Whole Bld 93 LAB BUNWB 10-25 mg/dL BUN, Whole Blood 11 LAB BCRET 0.70-1.40 mg/dL Creatinine,Wh ole Bld 0.90 LAB AGAPWB 0-15 mmol/L Anion Gap, Whole Bld 14 LAB GFRAA eGFR- Amer. >60 LAB GFRNAA . eGFR-All Other Races >60 Result Comment: eGFR (Estimated GFR) Units of measure: mL/min/1.73 meters squared eGFR is derived from the reexpressed MDRD Study equation using the following parameters: serum creatinine, age, gender and race. The creatinine assay has been calibrated to be traceable to IDMS. An eGFR <60 mL/min/1.73m2 for >3 months is consistent with chronic kidney disease. Refer to KDOQI guidelines for clinical interpretation. In patients with unstable renal function, e.g. those with acute kidney injury, the eGFR may not accurately reflect actual GFR. ROLANDO ABS GR + CBC Collected: 11/27/2017 Status: F Source: [place] 9:51 AM [facility] REPOSITORY TYPE CODE TESTS RESULT OUT OF REFERENCE UNITS RANGE LAB WWBC 3.70-11.00 k/uL [place] WBC 3.73 LAB WRBC 4.20-6.00 m/uL Low [place] RBC 3.57 LAB WHGB 13.0-17.0 g/dL Low [place] Hemoglobin 11.1 LAB WHCT 39.0-51.0 % Low [place] Hematocrit 32.5 LAB WMCV 80.0-100.0 fL [place] MCV 91.0 LAB WMCH 26.0-34.0 pg [place] MCH 31.1 LAB WMCHC 30.5-36.0 g/dL [place] MCHC 34.2 LAB WRDW 11.5-15.0 % [place] RDW 14.0 LAB WPLT 150-400 k/uL Low [place] Platelet Cnt 126 LAB WMPV 9.0-12.7 fL Low [place] MPV 8.6 Result Comment: Test performed at: [facility] [place] [facility], [address] [place] [address]. LAB ABGRAN 1.45-7.50 k/uL Absol Gran 1.98 Count HEPATIC FUNCTN PANEL Collected: 11/27/2017 Status: F Source: [place] 9:51 AM [facility] REPOSITORY TYPE CODE TESTS RESULT OUT OF REFERENCE UNITS RANGE LAB ALB 3.9-4.9 g/dL Low Albumin 3.7 LAB TBIL 0.2-1.3 mg/dL Bilirubin, Total 0.4 LAB CBIL <0.2 mg/dL Bilirubin,Conjuga <0.2 [place] LAB ALKP 36-108 U/L Alkaline Phosphatase 59 LAB AST 14-40 U/L AST 20 LAB ALT 10-54 U/L ALT 32 LAB TP 6.3-8.0 g/dL Protein, Total 6.3 Performed By: #### HFP, CEA #### [facility] [address] [place] [place], [place] [address] CEA Collected: 11/27/2017 Status: F Source: [place] 9:51 AM [facility] REPOSITORY TYPE CODE TESTS RESULT OUT OF RANGE REFERENCE UNITS LAB CEA 0.0-2.9 ng/mL High CEA 13.8 Result Comment: Test analyzed by the [employer] DxI method. Performed By: #### HFP, CEA #### [facility] [address] [place], [place] [address] CNOVSP Observed: 11/27/2017 Status: COMPLETED Source: [place] 9:50 AM [facility] REPOSITORY Visit (SP) Office ([place]) BECCA MAGANA ([id number]) 1955 M Date Time Provider Department 11/27/17 9:50 AM GERALDO STONE During your visit today, we recorded the following information about you: Temperature Pulse Blood pressure Weight 97.8 degrees 73/minute 112/68 97.1 kg Geraldo Stone 11/27/2017 10:42 AM Signed Diagnosis: 1) Metastatic recurrence of stage III colon cancer. MSI stable. BRAF - A sequence change: c.1781A>G ([id number]) was detected at approximately 48% allele proportion. [Reference sequence: (NM_004333.4)]. KRAS - No variant detected [Reference?sequence: (NM_004985.4)]. NRAS - No variant detected [Reference sequence: (NM_[id number])]. Patient referred by ongoing management of metastatic colon cancer. HPI: The patient is a 61 yo male who developed abdominal pain around June 2014. His symptoms progressively worsened throughout the spring. He also began losing weight in the spring and this culminated in a hospitalization for what was thought to be diverticulitis in December 2014. He underwent a CT scan which was thought to demonstrated a left lower quadrant abscess. The drain was placed and he was treated with antibiotic treatment. Pain flared and a repeat CT scan on 01/24/15 demonstrated marked inflammatory phlegmonous changes of the proximal sigmoid colon. He therefore underwent a colonoscopy and sigmoid colon resection with lymph node dissection on 01/29/2015. The sigmoid colon was noted to be adherent to the anterior abdominal wall and small bowel. The final pathology demonstrated an invasive moderately differentiated adenocarcinoma, tumor extension through the colonic wall and involving the muscularis propria of the small bowel. The proximal margin resection had a small focus of tumor present at the serosal surface. None of 25 lymph nodes were involved. The patient went on to receive 12 cycles FOLFOX which she finished on 09/13/2015. Surveillance CT scan the abdomen and pelvis on January 06, 2016 demonstrated a small omental nodules. He was treated with 4 cycles of FOLFIRI and then underwent exploratory laparotomy, excision of peritoneal/liver/small bowel/mesenteric nodules, heated intraperitoneal chemotherapy (HIPEC) administration for 100 minutes, cystoscopy with bilateral ureteral stent placement on 05/22/2016. Pathology: 1. Small bowel peritoneal nodules, excision (A) - Organizing fibrous adhesions. - No evidence of malignancy. 2. Left liver nodule, biopsy (B) - Adenocarcinoma in liver, consistent with colonic primary. 3. Omentum, excision (C) - Infiltrating adenocarcinoma, consistent with colonic primary. 4. Left upper quadrant abdominal wall, biopsy (D) - Infiltrating adenocarcinoma, consistent with colonic primary. 5. Pelvic nodule and omentum, excision (E) - Infiltrating adenocarcinoma, consistent with colonic primary. - One lymph node, negative for malignancy (0/1). 6. Ileal nodule, excision (F) - Infiltrating adenocarcinoma, consistent with colonic primary. In end of July/first week of August this year he underwent repeat staging workup (CT and PET) which unfortunately showed liver metastasis and intra-abdominal metastases. He recently started back on chemotherapy with FOLFIRI and cetuximab. He's had 2 cycles to date. Previous therapy: 1) FOLFOX ?12 cycles completed 09/13/2015. 2) FOLFIRI x4 cycles. 3) Exploratory lap 04/2016 with HIPEC (mitomycin). Current therapy: 1) FOLFIRI (with Vectibix--side effects permitting). Interim history: Since last seen for office visit, he had 1 cycle of treatment with Vectibix and then a treatment 2 weeks ago without Vectibix. He experienced the onset of rather significant rash. He had tenderness in the corners of the mouth and some burning of the eyes. He had diarrhea for about 5 days. He has not been taking minocycline. He is not using any topical steroid or antibiotic cream. He is not using any moisturizing lotion. No further diarrhea. He is no longer having abdominal pain though. His appetite is normal. 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 No jaundice. Tolerating Xarelto well with no unusual bleeding or unexplained bruising. Symptoms from neuropathy are stable. PMH, medications and allergies as below personally reviewed by me today. Any changes documented in appropriate section. ROS: Constitutional: Denies episodes night sweats. Neuro: Denies HIDALGO, vertigo, dizziness and imbalance. HEENT: No recent change in voice, vision or hearing. Resp: Denies cough, wheeze and hemoptysis. Denies shortness of breath at rest. Denies ARENAS. CVS: Denies exertional chest pain, PND, orthopnea and LE edema. GI: Denies dysgeusia. Denies symptoms of stomatitis. : Denies dysuria or gross hematuria. No symptoms of bladder outlet obstruction. Endo: Denies hot flashes. Denies polyuria and polydipsia. Denies heat and cold intolerance. Musculoskeletal: Denies bone, back, joint and muscular pain. Derm: Denies jaundice and diffuse pruritis. Heme: See above. Psych: Normal mood. PHYSICAL EXAM: Vitals: Blood pressure 112/68, pulse 73, temperature 36.6 ?C (97.8 ?F), temperature source Oral, weight 97.1 kg (214 lb). Well-appearing and in no acute distress. EYES: Sclerae are anicteric bilaterally. ENT: Oral mucosa is unremarkable. There is no sign of thrush or mucositis. NECK: Supple. No enlargement of thyroid. LYMPHATIC: There is no palpable cervical, supraclavicular, axillary or inguinal adenopathy. RESPIRATORY: Inspiratory breath sounds are of normal intensity in all [place]. No rales, wheezes or rhonchi. Expiratory phase is normal. CARDIOVASCULAR: Rhythm is regular. Normal intensity S1/S2. There is no gallop or murmur. ABDOMEN: The abdomen is nondistended. No organomegaly. The mass in the midline just above the umbilicus is now softer and smaller. Extremities: No swelling or edema. SKIN: He has dry, flaky skin as well as resolving acneiform rash of the face upper chest and upper back. 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 No focal motor weakness. MUSCULOSKELETAL: NNo muscle wasting. ASSESSMENT/PLAN: (C18.9) Malignant neoplasm of colon, unspecified part of colon (HCC) (primary encounter diagnosis) (C78.6, C80.1) Peritoneal carcinomatosis (HCC) (C78.7) Metastasis to liver (HCC) (L27.0) Drug rash Assessment: -KPS is 80%. -MMR proficient. [place] sent previous testing that had been done at the time of his surgery 02/2016. Please see scanned document. -We discussed again today the plan of using Vectibix when he feels his side effect profile has sufficiently resolved enough to tolerate another dose. When you next gets a dose, it will be 3 mg/kg. Plan: -Continue FOLFIRI with dose reduction of irinotecan and 5-fluorouracil. -Add panitumumab when able. -CT scan 12/03. -Monitor CEA. -Continue olanzapine and dexamethasone for nausea. 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 -No unusual bleeding episodes. Plan: -Continue Xarelto. 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 Discontinue saline lock post exam. If Pt. has a central line or IVAD, may access for administration according to line specific nursing protocol. Once exam is complete flush line and de- access according to line specific nursing protocol in the CT contrast administration guidelines link.Disp: 1 EachRfl: 0 enteric contrast (radiology procedure)For CT CHESTABD/PEL W IVCON Routine order Administer, As Directed One Time Only, via Oral, Rectal, both Oral and Rectal, Enteric Tube, Stoma or Indwelling Catheter, Enteric Contrast as designated per enteric contrast guidelinesDisp: 1 EachRfl: 0 BMP [facility]US [facility] [SQPICBMP] Order #: [id number] FUTURE Follow-up and Disposition History Recorded Prescriptions as of 11/27/2017 Sig: MINOCYCLINE 100 MG CAPSULE Take 1 capsule by mouth twice* RIVAROXABAN 20 MG TABLET Take 1 tablet by mouth daily * OLANZAPINE 10 MG TABLET Take 1 tablet by mouth daily * DEXAMETHASONE 4 MG TABLET Take 1 tablet by mouth twice * ONDANSETRON HCL 8 MG TABLET Take 1 tablet by mouth every * IV CONTRAST (RADIOLOGY PROCED* CT Chest ABD/PEL-Inject, intr* ENTERIC CONTRAST (RADIOLOGY P* For CT CHESTABD/PEL W IVCON R* ENOXAPARIN 100 MG/ML SUBCUTAN* Inject 1 mL subcutaneously q * OMEPRAZOLE 20 MG CAPSULE,REJI* Take 2 capsules by mouth once* LOAXEFMJKTYITTK-TLFEXDS-DBNEY* Take 10 mL by mouth every 4 h* Medication notes this encounter ONDANSETRON HCL 8 MG TABLET >> Susanne Doyle Ma 11/27/2017 9:48 AM >> SUSANNE DOYLE MA November 27, 2017 9:48 AM as necessary ENOXAPARIN 100 MG/ML SUBCUTANEOUS SYRINGE >> Susanne Doyle Ma 11/27/2017 9:48 AM >> SUSANNE DOYLE MA November 27, 2017 9:48 AM No longer using. OMEPRAZOLE 20 MG CAPSULE,DELAYED RELEASE >> Susanne Doyle Ma 11/27/2017 9:48 AM >> SUSANNE DOYLE MA November 27, 2017 9:48 AM No longer taking. WCEPZHEYHMPJGWE-DZEUSSE-VPZNGCECK ([facility]) >> Susanne Doyle Ma 11/27/2017 9:48 AM >> SUSANNE DOYLE MA November 27, 2017 9:48 AM No longer using. Problem List As Of Date 11/27/2017 Noted Resolved Colon cancer (HCC) [C18.9] 08/21/2017 Peritoneal carcinomatosis (HCC) [C78.6, C80.1] INVALID FOR* Metastasis to liver (HCC) [C78.7] INVALID FOR* More... Drug rash [L27.0] INVALID FOR* Malignant neoplasm of sigmoid colon (HCC) [C18.*INVALID FOR* Chronic saddle pulmonary embolism without acute*INVALID FOR* Encounter Status:Closed by GERALDO STONE DO on 11/27/17 PROGRESS Observed: 11/14/2017 Status: COMPLETED Source: [place] 10:08 AM [facility] REPOSITORY HNO ID: [id number] Author: Janet Rivero (Rn) DENAE Alvarado Service: (none) Author Type: Registered Nurse Type: Progress Notes Filed: 11/14/2017 1:17 PM Note Text: 0945 Patient c/o acne type rash on face, back and chest. Also c/o blurred vision and states inside of eye lids feel funny. Requesting Vectibix to be held today. Dr Stone notified of patient complaints. Vectibix to be held today. Per Dr Stone ok to use moisturizing drops. Patient notified and verbalized understanding. Janet Alvarado, DENAE [facility] Collected: 11/14/2017 Status: F Source: [place] 9:15 AM [facility] REPOSITORY TYPE CODE TESTS RESULT OUT OF REFERENCE UNITS RANGE LAB NAWB 135-146 mmol/L Sodium, Whole 141 Bld LAB K1WB 3.5-5.0 mmol/L Low Potassium,Who 3.4 le Bld LAB CLWB 98-110 mmol/L Chloride, 104 Whole Bld LAB ICAWB 1.08-1.30 mmol/L Ionized 1.17 Calcium, WB Result Comment: Please note: This value represents ionized calcium not total calcium. LAB CO2WB 23-32 mmol/L TCO2, Whole 24 Blood LAB GLUWB 65-100 mg/dL High Glucose, 144 Whole Bld LAB BUNWB 10-25 mg/dL BUN, Whole 16 Blood LAB BCRET 0.70-1.40 mg/dL Creatinine,Wh 1.00 ole Bld LAB AGAPWB 0-15 mmol/L Anion Gap, 13 Whole Bld LAB GFRAA eGFR- >60 Amer. LAB GFRNAA . eGFR-All >60 Other Races Result Comment: eGFR (Estimated GFR) Units of measure: mL/min/1.73 meters squared eGFR is derived from the reexpressed MDRD Study equation using the following parameters: serum creatinine, age, gender and race. The creatinine assay has been calibrated to be traceable to IDMS. An eGFR <60 mL/min/1.73m2 for >3 months is consistent with chronic kidney disease. Refer to KDOQI guidelines for clinical interpretation. In patients with unstable renal function, e.g. those with acute kidney injury, the eGFR may not accurately reflect actual GFR. ROLANDO ABS GR + CBC Collected: 11/14/2017 Status: F Source: [place] 9:15 AM [facility] REPOSITORY TYPE CODE TESTS RESULT OUT OF REFERENCE UNITS RANGE LAB WWBC 3.70-11.00 k/uL [place] WBC 5.74 LAB WRBC 4.20-6.00 m/uL Low [place] RBC 3.95 LAB WHGB 13.0-17.0 g/dL Low [place] Hemoglobin 12.4 LAB WHCT 39.0-51.0 % Low [place] Hematocrit 36.1 LAB WMCV 80.0-100.0 fL [place] MCV 91.4 LAB WMCH 26.0-34.0 pg [place] MCH 31.4 LAB WMCHC 30.5-36.0 g/dL [place] MCHC 34.3 LAB WRDW 11.5-15.0 % [place] RDW 14.0 LAB WPLT 150-400 k/uL [place] Platelet Cnt 164 LAB WMPV 9.0-12.7 fL Low [place] MPV 8.6 Result Comment: Test performed at: [facility] [place] [facility], [address] [place] [address]. LAB ABGRAN 1.45-7.50 k/uL Absol Gran 3.74 Count HEPATIC FUNCTN PANEL Collected: 11/14/2017 Status: F Source: [place] 9:15 AM [facility] REPOSITORY TYPE CODE TESTS RESULT OUT OF REFERENCE UNITS RANGE LAB ALB 3.9-4.9 g/dL Albumin 3.9 LAB TBIL 0.2-1.3 mg/dL Bilirubin, Total 0.6 LAB CBIL <0.2 mg/dL Bilirubin,Conjuga <0.2 [place] LAB ALKP 36-108 U/L Alkaline Phosphatase 78 LAB AST 14-40 U/L AST 18 LAB ALT 10-54 U/L ALT 25 LAB TP 6.3-8.0 g/dL Protein, Total 6.4 Performed By: #### HFP, CEA #### [facility] [address], [place] [id number] CEA Collected: 11/14/2017 Status: F Source: [place] 9:15 AM [facility] REPOSITORY TYPE CODE TESTS RESULT OUT OF RANGE REFERENCE UNITS LAB CEA 0.0-2.9 ng/mL High CEA 13.0 Result Comment: Test analyzed by the [employer] DxI method. Performed By: #### HFP, CEA #### [email or web address] [address] [place], [place] [address] PROGRESS Observed: 10/31/2017 Status: COMPLETED Source: [place] 12:42 PM [facility] REPOSITORY HNO ID: [id number] Author: Margie Rucker (Sw) Service: (none) Author Type: Measurement Technician Type: Progress Notes Filed: 10/31/2017 12:42 PM Note Text: You are not granted access to view this sensitive note. CNSW Observed: 10/31/2017 Status: COMPLETED Source: [place] 12:00 AM [facility] REPOSITORY Social Work ([place]) BECCA MAGANA ([id number]) 1955 M Date Time Provider Department 10/31/17 MARGIE RUCKER (SW) During your visit today, we recorded the following information about you: Allergies As of Date: 10/31/2017 (No Known Allergies) Date Reviewed: 10/31/2017 Reviewed by: Jessika Lyles RN, RN - Fully Assessed Reason for Visit: Social Work Services [507] Cmt: distress assessment Prescriptions as of 10/31/2017 Sig: RIVAROXABAN 20 MG TABLET Take 1 tablet by mouth daily * ENOXAPARIN 100 MG/ML SUBCUTAN* Inject 1 mL subcutaneously q * OLANZAPINE 10 MG TABLET Take 1 tablet by mouth daily * DEXAMETHASONE 4 MG TABLET Take 1 tablet by mouth twice * OMEPRAZOLE 20 MG CAPSULE,REJI* Take 2 capsules by mouth once* ONDANSETRON HCL 8 MG TABLET Take 1 tablet by mouth every * HKZPMHGSUTGBYFH-TGYDCOA-IOTNJ* Take 10 mL by mouth every 4 h* Problem List As Of Date 10/31/2017 Noted Resolved Colon cancer (HCC) [C18.9] 08/21/2017 Peritoneal carcinomatosis (HCC) [C78.6, C80.1] INVALID FOR* Metastasis to liver (HCC) [C78.7] INVALID FOR* More... Drug rash [L27.0] INVALID FOR* Malignant neoplasm of sigmoid colon (HCC) [C18.*INVALID FOR* Chronic saddle pulmonary embolism without acute*INVALID FOR* Encounter Status:Closed by MARGIE RUCKER on 10/31/17 PROGRESS Observed: 10/30/2017 Status: COMPLETED Source: [place] 9:55 AM [facility] REPOSITORY O ID: [id number] Author: Geraldo Stone Service: (none) Author Type: Physician Type: Progress Notes Filed: 10/30/2017 10:20 AM Note Text: Diagnosis: 1) Metastatic recurrence of stage III colon cancer. MSI stable. BRAF - A sequence change: c.1781A>G (p.[id number]) was detected at approximately 48% allele proportion. [Reference sequence: (NM_004333.4)]. KRAS - No variant detected [Reference?sequence: (NM_004985.4)]. NRAS - No variant detected [Reference sequence: (NM_002524.4)]. Patient referred by ongoing management of metastatic colon cancer. HPI: The patient is a 61 yo male who developed abdominal pain around June 2014. His symptoms progressively worsened throughout the spring of 2014. He also began losing weight in the spring and this culminated in a hospitalization for what was thought to be diverticulitis in December 2014. He underwent a CT scan which was thought to demonstrated a left lower quadrant abscess. The drain was placed and he was treated with antibiotic treatment. Pain flared and a repeat CT scan on 01/24/15 demonstrated marked inflammatory phlegmonous changes of the proximal sigmoid colon. He therefore underwent a colonoscopy and sigmoid colon resection with lymph node dissection on 01/29/2015. The sigmoid colon was noted to be adherent to the anterior abdominal wall and small bowel. The final pathology demonstrated an invasive moderately differentiated adenocarcinoma, tumor extension through the colonic wall and involving the muscularis propria of the small bowel. The proximal margin resection had a small focus of tumor present at the serosal surface. None of 25 lymph nodes were involved. The patient went on to receive 12 cycles FOLFOX which she finished on 09/13/2015. Surveillance CT scan the abdomen and pelvis on January 06, 2016 demonstrated a small omental nodules. He was treated with 4 cycles of FOLFIRI and then underwent exploratory laparotomy, excision of peritoneal/liver/small bowel/mesenteric nodules, heated intraperitoneal chemotherapy (HIPEC) administration for 100 minutes, cystoscopy with bilateral ureteral stent placement on 05/22/2016. Pathology: 1. Small bowel peritoneal nodules, excision (A) - Organizing fibrous adhesions. - No evidence of malignancy. 2. Left liver nodule, biopsy (B) - Adenocarcinoma in liver, consistent with colonic primary. 3. Omentum, excision (C) - Infiltrating adenocarcinoma, consistent with colonic primary. 4. Left upper quadrant abdominal wall, biopsy (D) - Infiltrating adenocarcinoma, consistent with colonic primary. 5. Pelvic nodule and omentum, excision (E) - Infiltrating adenocarcinoma, consistent with colonic primary. - One lymph node, negative for malignancy (0/1). 6. Ileal nodule, excision (F) - Infiltrating adenocarcinoma, consistent with colonic primary. In end of July/first week of August this year he underwent repeat staging workup (CT and PET) which unfortunately showed liver metastasis and intra-abdominal metastases. He recently started back on chemotherapy with FOLFIRI and cetuximab. He's had 2 cycles to date. Previous therapy: 1) FOLFOX ?12 cycles completed 09/13/2015. 2) FOLFIRI x4 cycles. 3) Exploratory lap 04/2016 with HIPEC (mitomycin). Current therapy: 1) FOLFIRI (with cetuximab--side effects permitting). Currently on hold. Interim history: Patient was here for CT scans when he was incidentally found to have high clot burden from PEG. In retrospect he had been getting progressively short of breath with exertion. He was started on Lovenox immediately. He's had no unusual bleeding or unexplained bruising. He was seen by his surgeon for the previous bleeding hemorrhoid. Apparently bleeding stopped and no surgical intervention was needed. Patient says hemorrhoid is asymptomatic at this point. His complaint today is having more abdominal pain from a swollen tender area just above the umbilicus. He's not had any fever or shaking chill. No diarrhea. Symptoms from neuropathy are stable. PMH, medications and allergies as below personally reviewed by me today. Any changes documented in appropriate section. ROS: Constitutional: Denies episodes night sweats. Neuro: Denies HIDALGO, vertigo, dizziness and imbalance. HEENT: No recent change in voice, vision or hearing. Resp: Denies cough, wheeze and hemoptysis. Denies shortness of breath at rest. Denies ARENAS. CVS: Denies exertional chest pain, PND, orthopnea and LE edema. GI: Denies dysgeusia. Denies symptoms of stomatitis. : Denies dysuria or gross hematuria. No symptoms of bladder outlet obstruction. Endo: Denies hot flashes. Denies polyuria and polydipsia. Denies heat and cold intolerance. Musculoskeletal: Denies bone, back, joint and muscular pain. Derm: Denies jaundice and diffuse pruritis. Heme: See above. Psych: Normal mood. PHYSICAL EXAM: Vitals: Blood pressure 114/73, pulse 78, temperature 36.7 ?C (98 ?F), temperature source Temporal Artery, weight 97.5 kg (215 lb). Well-appearing and in no acute distress. EYES: Sclerae are anicteric bilaterally. ENT: Oral mucosa is unremarkable. There is no sign of thrush or mucositis. NECK: Supple. No enlargement of thyroid. LYMPHATIC: There is no palpable cervical, supraclavicular, axillary or inguinal adenopathy. RESPIRATORY: Inspiratory breath sounds are of normal intensity in all [place]. No rales, wheezes or rhonchi. Expiratory phase is normal. CARDIOVASCULAR: Rhythm is regular. Normal intensity S1/S2. There is no gallop or murmur. ABDOMEN: The abdomen is nondistended. No organomegaly. There is a firm subcutaneous mass just above the umbilicus measuring approximately 6-7 cm [id number] and about 4 cm cranial caudal. Extremities: No swelling or edema. SKIN: No jaundice. No rash. 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 No focal motor weakness. MUSCULOSKELETAL: NNo muscle wasting. ASSESSMENT/PLAN: (C18.9) Malignant neoplasm of colon, unspecified part of colon (HCC) (primary encounter diagnosis) (C78.6, C80.1) Peritoneal carcinomatosis (HCC) (C78.7) Metastasis to liver (HCC) (L27.0) Drug rash Assessment: -KPS is 90%. -Now worsening subcutaneous/abdominal wall metastasis. -I discussed over the phone the overall prognosis with the patient's several weeks ago. In the past he has been very reluctant to undergo consistent treatment. I discussed with him the importance of doing this. Also the plan is to add panitumumab back to his regimen. -MMR proficient. [facility] sent previous testing that had been done at the time of his surgery 02/2016. Please see scanned document. Plan: -Continue FOLFIRI with dose reduction of irinotecan and 5-fluorouracil. -Add panitumumab. -CT scan after 3 cycles depending on how abdominal wall metastasis responds. -Monitor CEA. -Continue olanzapine and dexamethasone for nausea. 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 -No unusual bleeding episodes. Plan: -He will continue anticoagulation indefinitely. He would like to change to oral therapy. Rx for Xarelto sent. Geraldo Stone DO CNOVSP Observed: 10/30/2017 Status: COMPLETED Source: [place] 9:50 AM [facility] REPOSITORY Visit (SP) Office ([place]) BECCA MAGANA ([id number]) 1955 M Date Time Provider Department 10/30/17 9:50 AM GERALDO STONE During your visit today, we recorded the following information about you: Temperature Pulse Blood pressure Weight 98 degrees 78/minute 114/73 97.5 kg Geraldo Stone DO 10/30/2017 10:20 AM Signed Diagnosis: 1) Metastatic recurrence of stage III colon cancer. MSI stable. BRAF - A sequence change: [id number] ([id number]) was detected at approximately 48% allele proportion. [Reference sequence: ([id number])]. KRAS - No variant detected [Reference?sequence: ([id number])]. NRAS - No variant detected [Reference sequence: ([id number])]. Patient referred by ongoing management of metastatic colon cancer. HPI: The patient is a 61 yo male who developed abdominal pain around June 2014. His symptoms progressively worsened throughout the spring. He also began losing weight in the spring and this culminated in a hospitalization for what was thought to be diverticulitis in December 2014. He underwent a CT scan which was thought to demonstrated a left lower quadrant abscess. The drain was placed and he was treated with antibiotic treatment. Pain flared and a repeat CT scan on 01/24/15 demonstrated marked inflammatory phlegmonous changes of the proximal sigmoid colon. He therefore underwent a colonoscopy and sigmoid colon resection with lymph node dissection on 01/29/2015. The sigmoid colon was noted to be adherent to the anterior abdominal wall and small bowel. The final pathology demonstrated an invasive moderately differentiated adenocarcinoma, tumor extension through the colonic wall and involving the muscularis propria of the small bowel. The proximal margin resection had a small focus of tumor present at the serosal surface. None of 25 lymph nodes were involved. The patient went on to receive 12 cycles FOLFOX which she finished on 09/13/2015. Surveillance CT scan the abdomen and pelvis on January 06, 2016 demonstrated a small omental nodules. He was treated with 4 cycles of FOLFIRI and then underwent exploratory laparotomy, excision of peritoneal/liver/small bowel/mesenteric nodules, heated intraperitoneal chemotherapy (HIPEC) administration for 100 minutes, cystoscopy with bilateral ureteral stent placement on 05/22/2016. Pathology: 1. Small bowel peritoneal nodules, excision (A) - Organizing fibrous adhesions. - No evidence of malignancy. 2. Left liver nodule, biopsy (B) - Adenocarcinoma in liver, consistent with colonic primary. 3. Omentum, excision (C) - Infiltrating adenocarcinoma, consistent with colonic primary. 4. Left upper quadrant abdominal wall, biopsy (D) - Infiltrating adenocarcinoma, consistent with colonic primary. 5. Pelvic nodule and omentum, excision (E) - Infiltrating adenocarcinoma, consistent with colonic primary. - One lymph node, negative for malignancy (0/1). 6. Ileal nodule, excision (F) - Infiltrating adenocarcinoma, consistent with colonic primary. In end of July/first week of August this year he underwent repeat staging workup (CT and PET) which unfortunately showed liver metastasis and intra-abdominal metastases. He recently started back on chemotherapy with FOLFIRI and cetuximab. He's had 2 cycles to date. Previous therapy: 1) FOLFOX ?12 cycles completed 09/13/2015. 2) FOLFIRI x4 cycles. 3) Exploratory lap 04/2016 with HIPEC (mitomycin). Current therapy: 1) FOLFIRI (with cetuximab--side effects permitting). Currently on hold. Interim history: Patient was here for CT scans when he was incidentally found to have high clot burden from PEG. In retrospect he had been getting progressively short of breath with exertion. He was started on Lovenox immediately. He's had no unusual bleeding or unexplained bruising. He was seen by his surgeon for the previous bleeding hemorrhoid. Apparently bleeding stopped and no surgical intervention was needed. Patient says hemorrhoid is asymptomatic at this point. His complaint today is having more abdominal pain from a swollen tender area just above the umbilicus. He's not had any fever or shaking chill. No diarrhea. Symptoms from neuropathy are stable. PMH, medications and allergies as below personally reviewed by me today. Any changes documented in appropriate section. ROS: Constitutional: Denies episodes night sweats. Neuro: Denies HIDALGO, vertigo, dizziness and imbalance. HEENT: No recent change in voice, vision or hearing. Resp: Denies cough, wheeze and hemoptysis. Denies shortness of breath at rest. Denies ARENAS. CVS: Denies exertional chest pain, PND, orthopnea and LE edema. GI: Denies dysgeusia. Denies symptoms of stomatitis. : Denies dysuria or gross hematuria. No symptoms of bladder outlet obstruction. Endo: Denies hot flashes. Denies polyuria and polydipsia. Denies heat and cold intolerance. Musculoskeletal: Denies bone, back, joint and muscular pain. Derm: Denies jaundice and diffuse pruritis. Heme: See above. Psych: Normal mood. PHYSICAL EXAM: Vitals: Blood pressure 114/73, pulse 78, temperature 36.7 ?C (98 ?F), temperature source Temporal Artery, weight 97.5 kg (215 lb). Well-appearing and in no acute distress. EYES: Sclerae are anicteric bilaterally. ENT: Oral mucosa is unremarkable. There is no sign of thrush or mucositis. NECK: Supple. No enlargement of thyroid. LYMPHATIC: There is no palpable cervical, supraclavicular, axillary or inguinal adenopathy. RESPIRATORY: Inspiratory breath sounds are of normal intensity in all [place]ruff. No rales, wheezes or rhonchi. Expiratory phase is normal. CARDIOVASCULAR: Rhythm is regular. Normal intensity S1/S2. There is no gallop or murmur. ABDOMEN: The abdomen is nondistended. No organomegaly. There is a firm subcutaneous mass just above the umbilicus measuring approximately 6-7 cm qvdo-vw-lgys and about 4 cm cranial caudal. Extremities: No swelling or edema. SKIN: No jaundice. No rash. 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 No focal motor weakness. MUSCULOSKELETAL: NNo muscle wasting. ASSESSMENT/PLAN: (C18.9) Malignant neoplasm of colon, unspecified part of colon (HCC) (primary encounter diagnosis) (C78.6, C80.1) Peritoneal carcinomatosis (HCC) (C78.7) Metastasis to liver (HCC) (L27.0) Drug rash Assessment: -KPS is 90%. -Now worsening subcutaneous/abdominal wall metastasis. -I discussed over the phone the overall prognosis with the patient's several weeks ago. In the past he has been very reluctant to undergo consistent treatment. I discussed with him the importance of doing this. Also the plan is to add panitumumab back to his regimen. -MMR proficient. [facility] sent previous testing that had been done at the time of his surgery 02/2016. Please see scanned document. Plan: -Continue FOLFIRI with dose reduction of irinotecan and 5-fluorouracil. -Add panitumumab. -CT scan after 3 cycles depending on how abdominal wall metastasis responds. -Monitor CEA. -Continue olanzapine and dexamethasone for nausea. 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 -No unusual bleeding episodes. Plan: -He will continue anticoagulation indefinitely. He would like to change to oral therapy. Rx for Xarelto sent. Geraldo Stone DO Referring Provider: GERALDO STONE [[id number]] Allergies As of Date: 10/30/2017 (No Known Allergies) Date Reviewed: 10/30/2017 Reviewed by: Jessika Lyles, RN, RN - Fully Assessed Reason for Visit: Established Patient [[id number]] Primary Visit Diagnosis:Malignant neoplasm of sigmoid colon (HCC) [C18.7] Other Visit Diagnoses:Metastasis to liver (HCC) [C78.7] Peritoneal carcinomatosis (HCC) [C78.6, C80.1] Chronic saddle pulmonary embolism without acute cor pulmonale (HCC) [I26.92] Order(s):rivaroxaban (XARELTO) 20 mg tabletTake 1 tablet by mouth daily with dinner.Disp: 30 tabletRfl: 5 Follow-up and Disposition History Recorded Prescriptions as of 10/30/2017 Sig: ENOXAPARIN 100 MG/ML SUBCUTAN* Inject 1 mL subcutaneously q * OLANZAPINE 10 MG TABLET Take 1 tablet by mouth daily * DEXAMETHASONE 4 MG TABLET Take 1 tablet by mouth twice * RIVAROXABAN 20 MG TABLET Take 1 tablet by mouth daily * OMEPRAZOLE 20 MG CAPSULE,REJI* Take 2 capsules by mouth once* ONDANSETRON HCL 8 MG TABLET Take 1 tablet by mouth every * [id number]* Take 10 mL by mouth every 4 h* Problem List As Of Date 10/30/2017 Noted Resolved Colon cancer (HCC) [C18.9] 08/21/2017 Peritoneal carcinomatosis (HCC) [C78.6, C80.1] INVALID FOR* Metastasis to liver (HCC) [C78.7] INVALID FOR* More... Drug rash [L27.0] INVALID FOR* Malignant neoplasm of sigmoid colon (HCC) [C18.*INVALID FOR* Chronic saddle pulmonary embolism without acute*INVALID FOR* Encounter Status:Closed by GERALDO STONE DO on 10/30/17 [place] COX BMP Collected: 10/30/2017 Status: F Source: [place] 9:39 AM [facility] TYPE CODE TESTS RESULT OUT OF REFERENCE UNITS RANGE LAB NAWB 135-146 mmol/L Sodium, Whole 140 Bld LAB K1WB 3.5-5.0 mmol/L Potassium,Who 3.9 le Bld LAB CLWB 98-110 mmol/L Chloride, 106 Whole Bld LAB ICAWB 1.08-1.30 mmol/L Ionized 1.25 Calcium, WB Result Comment: Please note: This value represents ionized calcium not total calcium. LAB CO2WB 23-32 mmol/L TCO2, Whole Blood 25 LAB GLUWB 65-100 mg/dL Glucose, Whole Bld 95 LAB BUNWB 10-25 mg/dL BUN, Whole Blood 17 LAB BCRET 0.70-1.40 mg/dL Creatinine,Wh ole Bld 1.00 LAB AGAPWB 0-15 mmol/L Anion Gap, 9 Whole Bld LAB GFRAA eGFR- Amer. >60 LAB GFRNAA . eGFR-All Other Races >60 Result Comment: eGFR (Estimated GFR) Units of measure: mL/min/1.73 meters squared eGFR is derived from the reexpressed MDRD Study equation using the following parameters: serum creatinine, age, gender and race. The creatinine assay has been calibrated to be traceable to IDMS. An eGFR <60 mL/min/1.73m2 for >3 months is consistent with chronic kidney disease. Refer to KDOQI guidelines for clinical interpretation. In patients with unstable renal function, e.g. those with acute kidney injury, the eGFR may not accurately reflect actual GFR. [place] ABS GR + CBC Collected: 10/30/2017 Status: F Source: [place] 9:39 AM [facility] REPOSITORY TYPE CODE TESTS RESULT OUT OF REFERENCE UNITS RANGE LAB WWBC 3.70-11.00 k/uL [place] WBC 6.21 LAB WRBC 4.20-6.00 m/uL Low [place] RBC 3.80 LAB WHGB 13.0-17.0 g/dL Low [place] Hemoglobin 11.9 LAB WHCT 39.0-51.0 % Low [place] Hematocrit 35.0 LAB WMCV 80.0-100.0 fL [place] MCV 92.1 LAB WMCH 26.0-34.0 pg [place] MCH 31.3 LAB WMCHC 30.5-36.0 g/dL [place] MCHC 34.0 LAB WRDW 11.5-15.0 % [place] RDW 14.8 LAB WPLT 150-400 k/uL [place] Platelet Cnt 173 LAB WMPV 9.0-12.7 fL Low [place] MPV 8.6 Result Comment: Test performed at: [facility] [place], [address] [place] [address]. LAB ABGRAN 1.45-7.50 k/uL Absol Gran 3.88 Count HEPATIC FUNCTN PANEL Collected: 10/30/2017 Status: F Source: [place] 9:39 AM [facility] REPOSITORY TYPE CODE TESTS RESULT OUT OF REFERENCE UNITS RANGE LAB ALB 3.9-4.9 g/dL Albumin 4.1 LAB TBIL 0.2-1.3 mg/dL Bilirubin, Total 0.4 LAB CBIL <0.2 mg/dL Bilirubin,Conjuga <0.2 [place] LAB ALKP 36-108 U/L Alkaline Phosphatase 62 LAB AST 14-40 U/L AST 20 LAB ALT 10-54 U/L ALT 24 LAB TP 6.3-8.0 g/dL Protein, Total 7.5 Performed By: #### HFP, CEA #### [email or web address] [address] [address] CEA Collected: 10/30/2017 Status: F Source: [place] 9:39 AM [facility] REPOSITORY TYPE CODE TESTS RESULT OUT OF RANGE REFERENCE UNITS LAB CEA 0.0-2.9 ng/mL High CEA 17.4 Result Comment: Test analyzed by the [employer] DxI method. Performed By: #### HFP, CEA #### [email or web address] [address] [address] [place] ABS GR + CBC Collected: 10/03/2017 Status: F Source: [place] 9:20 AM [facility] REPOSITORY TYPE CODE TESTS RESULT OUT OF REFERENCE UNITS RANGE LAB WWBC 3.70-11.00 k/uL Low [place] WBC 3.39 LAB WRBC 4.20-6.00 m/uL Low [place] RBC 4.03 LAB WHGB 13.0-17.0 g/dL Low [place] Hemoglobin 12.0 LAB WHCT 39.0-51.0 % Low [place] Hematocrit 35.8 LAB WMCV 80.0-100.0 fL [place] MCV 88.8 LAB WMCH 26.0-34.0 pg [place] MCH 29.8 LAB WMCHC 30.5-36.0 g/dL [place] MCHC 33.5 LAB WRDW 11.5-15.0 % [place] High RDW 15.5 LAB WPLT 150-400 k/uL Low [place] Platelet Cnt 126 LAB WMPV 9.0-12.7 fL Low [place] MPV 8.6 Result Comment: Test performed at: [facility] [place], [address] [place] [address]. LAB ABGRAN 1.45-7.50 k/uL Low Absol 1.41 Gran Count [place] ISTAT BMP Collected: 10/03/2017 Status: F Source: [place] 9:20 AM [facility] REPOSITORY TYPE CODE TESTS RESULT OUT OF REFERENCE UNITS RANGE LAB NAWB 135-146 mmol/L Sodium, Whole 140 Bld LAB K1WB 3.5-5.0 mmol/L Potassium,Who 3.8 le Bld LAB CLWB 98-110 mmol/L Chloride, 105 Whole Bld LAB ICAWB 1.08-1.30 mmol/L Ionized 1.24 Calcium, WB Result Comment: Please note: This value represents ionized calcium not total calcium. LAB CO2WB 23-32 mmol/L TCO2, Whole 25 Blood LAB GLUWB 65-100 mg/dL High Glucose, 102 Whole Bld LAB BUNWB 10-25 mg/dL BUN, Whole 16 Blood LAB BCRET 0.70-1.40 mg/dL Creatinine,Wh 1.00 ole Bld LAB AGAPWB 0-15 mmol/L Anion Gap, 10 Whole Bld LAB GFRAA eGFR- >60 Amer. LAB GFRNAA . eGFR-All >60 Other Races Result Comment: eGFR (Estimated GFR) Units of measure: mL/min/1.73 meters squared eGFR is derived from the reexpressed MDRD Study equation using the following parameters: serum creatinine, age, gender and race. The creatinine assay has been calibrated to be traceable to IDMS. An eGFR <60 mL/min/1.73m2 for >3 months is consistent with chronic kidney disease. Refer to KDOQI guidelines for clinical interpretation. In patients with unstable renal function, e.g. those with acute kidney injury, the eGFR may not accurately reflect actual GFR. CT CHEST W IVCON Observed: 09/28/2017 Status: F Source: [place] 9:24 AM [facility] REPOSITORY * * *Final Report* * * DATE OF EXAM: Sep 28 2017 9:24AM [facility] 0539 - CT CHEST W IVCON / PROCEDURE REASON: multiple diagnoses * * * * Physician Interpretation * * * * CT CHEST WITH IV CONTRAST and CT ABDOMEN AND PELVIS WITH IV CONTRAST HISTORY: Malignant neoplasm of sigmoid colon Secondary malignant neoplasm of liver and intrahepatic bile duct Secondary malignant neoplasm of retroperitoneum and peritoneum Malignant (primary) neoplasm, unspecified TECHNIQUE: CT of the chest from the thoracic inlet to the upper abdomen was performed following IV contrast. CT of the abdomen and pelvis was performed using standard technique, scanning from just above the diaphragm to the symphysis pubis. M: CTCAP_2 Contrast: Other: 145 ml of Omnipaque 300 Oral: 50 ml of 50ML Omnipaque [address] Radiation dose: Integrated Dose-length product (DLP) for this visit = 1189 mGy*cm. CT Dose Reduction Employed: Automated exposure control(AEC) and iterative recon COMPARISON: 06/18/2017. RESULT: Limitations: None. Chest: Pulmonary arteries: This exam was not performed utilizing protocol to evaluate the pulmonary arteries. Nevertheless, there are bilateral pulmonary emboli evident. On the LEFT there is an embolus at the bifurcation of the LEFT pulmonary artery with anterior aspect of embolus extending into the LEFT upper lobe pulmonary artery and its proximal aspect of the adjacent segmental artery. The posterior aspect of the embolus extends into the LEFT lower lobe pulmonary artery, and lateral basilar segmental artery as well as a small component extending into the proximal aspect of the superior segment artery. On the RIGHT there is embolus in the lower lobe artery, anterior lateral and posterior basilar segmental arteries. No evidence of thrombus in the RIGHT ventricle. Lines, tubes, and devices: None. Lung parenchyma and pleura: No consolidation. Stable 7 mm nodule posterior RIGHT costophrenic sulcus with central coarse calcification. Findings consistent with a granuloma. No suspicious pulmonary nodule. No pleural effusion. Central airways are patent. Thoracic inlet, heart, and mediastinum: Stable 1.2 cm in diameter AP window adenopathy. The thoracic aorta and main pulmonary artery are normal in caliber. The cardiac chambers are normal in size. No coronary artery atherosclerotic calcifications are noted, although the study is not optimized for coronary assessment. No pericardial effusion or thickening. Abdomen / Pelvis: Liver: No mass. Decreased attenuation. Biliary: No bile duct dilation. Gallbladder is absent. Spleen: Stable central superior splenic mass 3.4 x 3.6 cm. No splenomegaly. Pancreas: No mass or duct dilation. Adrenals: No mass. Kidneys: No mass, calculus or hydronephrosis. GI tract: No dilation. Anterior lower abdominal small bowel loops contiguous to abdominal wall mass-see below. Bowel sutures distal colon.. Lymph nodes: Stable anterior upper pelvic mesenteric adenopathy 1.3 cm in diameter (8:86). Mesentery/Peritoneum: No ascites Vasculature: The celiac axis and SMA are patent. The portal vein and branches, splenic vein, SMV, and hepatic veins are patent. Pelvis: No mass, ascites or fluid collection. Bones/Soft Tissues: Stable findings of a mass in the anterior abdominal wall at the level of the umbilicus and superior extending posterior into the peritoneum contiguous to small bowel loops. IMPRESSION: Bilateral pulmonary emboli. Stable AP window adenopathy. Stable appearance of ventral abdominal wall mass and adjacent peritoneal adenopathy. Stable splenic mass URGENT RESULTS: Pulmonary embolism communicated with on 09/28/2017 at approximately 10:20. Dyeing Machine Feeder: [employer] Transcribe Date/Time: Sep 28 2017 10:00A Dictated by : ALEJO ESTRADA MD This examination was interpreted and the report reviewed and electronically signed by: ALEJO ESTRADA MD on Sep 28 2017 10:39AM EST [id number] CT ABD/PEL W IVCON Observed: 09/28/2017 Status: F Source: [place] 9:24 AM [facility] REPOSITORY * * *Final Report* * * DATE OF EXAM: Sep 28 2017 9:24AM [facility] 0530 - CT ABD/PEL W IVCON / PROCEDURE REASON: multiple diagnoses * * * * Physician Interpretation * * * * CT CHEST WITH IV CONTRAST and CT ABDOMEN AND PELVIS WITH IV CONTRAST HISTORY: Malignant neoplasm of sigmoid colon Secondary malignant neoplasm of liver and intrahepatic bile duct Secondary malignant neoplasm of retroperitoneum and peritoneum Malignant (primary) neoplasm, unspecified TECHNIQUE: CT of the chest from the thoracic inlet to the upper abdomen was performed following IV contrast. CT of the abdomen and pelvis was performed using standard technique, scanning from just above the diaphragm to the symphysis pubis. M: CTCAP_2 Contrast: Other: 145 ml of Omnipaque 300 Oral: 50 ml of 50ML Omnipaque [address] Radiation dose: Integrated Dose-length product (DLP) for this visit = 1189 mGy*cm. CT Dose Reduction Employed: Automated exposure control(AEC) and iterative recon COMPARISON: 06/18/2017. RESULT: Limitations: None. Chest: Pulmonary arteries: This exam was not performed utilizing protocol to evaluate the pulmonary arteries. Nevertheless, there are bilateral pulmonary emboli evident. On the LEFT there is an embolus at the bifurcation of the LEFT pulmonary artery with anterior aspect of embolus extending into the LEFT upper lobe pulmonary artery and its proximal aspect of the adjacent segmental artery. The posterior aspect of the embolus extends into the LEFT lower lobe pulmonary artery, and lateral basilar segmental artery as well as a small component extending into the proximal aspect of the superior segment artery. On the RIGHT there is embolus in the lower lobe artery, anterior lateral and posterior basilar segmental arteries. No evidence of thrombus in the RIGHT ventricle. Lines, tubes, and devices: None. Lung parenchyma and pleura: No consolidation. Stable 7 mm nodule posterior RIGHT costophrenic sulcus with central coarse calcification. Findings consistent with a granuloma. No suspicious pulmonary nodule. No pleural effusion. Central airways are patent. Thoracic inlet, heart, and mediastinum: Stable 1.2 cm in diameter AP window adenopathy. The thoracic aorta and main pulmonary artery are normal in caliber. The cardiac chambers are normal in size. No coronary artery atherosclerotic calcifications are noted, although the study is not optimized for coronary assessment. No pericardial effusion or thickening. Abdomen / Pelvis: Liver: No mass. Decreased attenuation. Biliary: No bile duct dilation. Gallbladder is absent. Spleen: Stable central superior splenic mass 3.4 x 3.6 cm. No splenomegaly. Pancreas: No mass or duct dilation. Adrenals: No mass. Kidneys: No mass, calculus or hydronephrosis. GI tract: No dilation. Anterior lower abdominal small bowel loops contiguous to abdominal wall mass-see below. Bowel sutures distal colon.. Lymph nodes: Stable anterior upper pelvic mesenteric adenopathy 1.3 cm in diameter (8:86). Mesentery/Peritoneum: No ascites Vasculature: The celiac axis and SMA are patent. The portal vein and branches, splenic vein, SMV, and hepatic veins are patent. Pelvis: No mass, ascites or fluid collection. Bones/Soft Tissues: Stable findings of a mass in the anterior abdominal wall at the level of the umbilicus and superior extending posterior into the peritoneum contiguous to small bowel loops. IMPRESSION: Bilateral pulmonary emboli. Stable AP window adenopathy. Stable appearance of ventral abdominal wall mass and adjacent peritoneal adenopathy. Stable splenic mass URGENT RESULTS: Pulmonary embolism communicated with on 09/28/2017 at approximately 10:20. Dyeing Machine Feeder: [employer] Transcribe Date/Time: Sep 28 2017 10:00A Dictated by : ALEJO ESTRADA MD This examination was interpreted and the report reviewed and electronically signed by: ALEJO ESTRADA MD on Sep 28 2017 10:39AM EST [id number] Observed: 09/28/2017 Status: COMPLETED Source: [place] 9:05 AM [facility] [facility] REPOSITORY O ID: [id number] Author: Fina Myrick Ct Service: (none) Author Type: (none) Type: Progress Notes Filed: 09/28/2017 9:06 AM Note Text: Radiology Service Progress Note PATIENT NAME: Becca Magana DATE OF SERVICE: September 28, 2017 TIME: 9:06 AM PATIENT IDENTITY VERIFICATION COMPLETED USING TWO (2) METHODS: Patient confirmed name verbally and Date of . PATIENT GENDER DATA: Male PATIENT RELEVANT IMPLANT DATA REVIEWED: Not Applicable CONTRAST INDUCED NEPHROPATHY RISK FACTORS: Patient age > 60 years CREATININE: Creatinine Date Value Ref Range Status 04/10/2017 0.98 0.73 - 1.22 mg/dL Final 02/28/2017 1.14 0.73 - 1.22 mg/dL Final 02/12/2017 1.04 0.73 - 1.22 mg/dL Final Creatinine, Whole Blood (iSTAT) Date Value Ref Range Status 09/18/2017 1.00 0.70 - 1.40 mg/dL Final 09/05/2017 0.90 0.70 - 1.40 mg/dL Final 08/21/2017 1.00 0.70 - 1.40 mg/dL Final eGFR-All Other Races Date Value Ref Range Status 09/18/2017 >60 . Final Comment: eGFR (Estimated GFR) Units of measure: mL/min/1.73 meters squared eGFR is derived from the reexpressed MDRD Study equation using the following parameters: serum creatinine, age, gender and race. The creatinine assay has been calibrated to be traceable to [employer]ME. An eGFR <60 mL/min/1.73m2 for >3 months is consistent with chronic kidney disease. Refer to KDOQI guidelines for clinical interpretation. In patients with unstable renal function, e.g. those with acute kidney injury, the eGFR may not accurately reflect actual GFR. eGFR- Date Value Ref Range Status 09/18/2017 >60 Final P.O.C.T. RESULTS: POC done: Yes, See Lab Tab September 28, 2017 RADIOLOGIST NOTIFIED?: No ALLERGIES: Reviewed and unchanged CONTRAST ALLERGY: NO. PERIPHERAL IV ACCESS: lt arm power port accessed by [employer] RADIOLOGY DEPARTMENT: CT; Exam(s) Completed: Chest Abdomen Pelvis SIGNED BY: Fina Myrick Ct September 28, 2017 9:06 AM PROGRESS Observed: 09/18/2017 Status: COMPLETED Source: [place] 10:59 AM [facility] REPOSITORY HNO ID: [id number] Author: Geraldo Stone Service: (none) Author Type: Physician Type: Progress Notes Filed: 09/25/2017 8:17 AM Note Text: Diagnosis: 1) Metastatic recurrence of stage III colon cancer. MSI stable. BRAF - A sequence change: c.1781A>G (p.Zlr125Dln) was detected at approximately 48% allele proportion. [Reference sequence: ([id number])]. KRAS - No variant detected [Reference?sequence: ([id number])]. NRAS - No variant detected [Reference sequence: (NM_[id number])]. Patient referred by ongoing management of metastatic colon cancer. HPI: The patient is a 61 yo male who developed abdominal pain around June 2014. His symptoms progressively worsened throughout the spring. He also began losing weight in the spring and this culminated in a hospitalization for what was thought to be diverticulitis in December 2014. He underwent a CT scan which was thought to demonstrated a left lower quadrant abscess. The drain was placed and he was treated with antibiotic treatment. Pain flared and a repeat CT scan on 01/24/15 demonstrated marked inflammatory phlegmonous changes of the proximal sigmoid colon. He therefore underwent a colonoscopy and sigmoid colon resection with lymph node dissection on 01/29/2015. The sigmoid colon was noted to be adherent to the anterior abdominal wall and small bowel. The final pathology demonstrated an invasive moderately differentiated adenocarcinoma, tumor extension through the colonic wall and involving the muscularis propria of the small bowel. The proximal margin resection had a small focus of tumor present at the serosal surface. None of 25 lymph nodes were involved. The patient went on to receive 12 cycles FOLFOX which she finished on 09/13/2015. Surveillance CT scan the abdomen and pelvis on January 06, 2016 demonstrated a small omental nodules. He was treated with 4 cycles of FOLFIRI and then underwent exploratory laparotomy, excision of peritoneal/liver/small bowel/mesenteric nodules, heated intraperitoneal chemotherapy (HIPEC) administration for 100 minutes, cystoscopy with bilateral ureteral stent placement on 05/22/2016. Pathology: 1. Small bowel peritoneal nodules, excision (A) - Organizing fibrous adhesions. - No evidence of malignancy. 2. Left liver nodule, biopsy (B) - Adenocarcinoma in liver, consistent with colonic primary. 3. Omentum, excision (C) - Infiltrating adenocarcinoma, consistent with colonic primary. 4. Left upper quadrant abdominal wall, biopsy (D) - Infiltrating adenocarcinoma, consistent with colonic primary. 5. Pelvic nodule and omentum, excision (E) - Infiltrating adenocarcinoma, consistent with colonic primary. - One lymph node, negative for malignancy (0/1). 6. Ileal nodule, excision (F) - Infiltrating adenocarcinoma, consistent with colonic primary. In end of July/first week of August this year he underwent repeat staging workup (CT and PET) which unfortunately showed liver metastasis and intra-abdominal metastases. He recently started back on chemotherapy with FOLFIRI and cetuximab. He's had 2 cycles to date. Previous therapy: 1) FOLFOX ?12 cycles completed 09/13/2015. 2) FOLFIRI x4 cycles. 3) Exploratory lap 04/2016 with HIPEC (mitomycin). Current therapy: 1) FOLFIRI (with cetuximab--side effects permitting). Currently on hold. Interim history: He's been tolerating FOLFIRI pretty well this time around with minimal nausea and other side effect. His appetite is been good. This past weekend he had several episodes of gnawing abdominal pain. They weren't associated with any nausea or change in bowel habits. He still has some abdominal tenderness. At the time of his most recent CT, he said after he expelled oral contrast he developed a bleeding hemorrhoid. It still bleeding but slowing down. He doesn't have any pain or itching from these lesions. Symptoms from neuropathy are stable. PMH, medications and allergies as below personally reviewed by me today. Any changes documented in appropriate section. ROS: Constitutional: Denies episodes of fever and night sweats. Normal appetite. Neuro: Denies HIDALGO, vertigo, dizziness and imbalance. HEENT: No recent change in voice, vision or hearing. Resp: Denies cough, wheeze and hemoptysis. Denies shortness of breath at rest. Denies ARENAS. CVS: Denies exertional chest pain, PND, orthopnea and LE edema. GI: Denies dysgeusia. Denies symptoms of stomatitis. : Denies dysuria or gross hematuria. No symptoms of bladder outlet obstruction. Endo: Denies hot flashes. Denies polyuria and polydipsia. Denies heat and cold intolerance. Musculoskeletal: Denies bone, back, joint and muscular pain. Derm: Denies jaundice and diffuse pruritis. Heme: Denies unusual bleeding and unexplained bruising. Psych: Normal mood. PHYSICAL EXAM: Vitals: Blood pressure 112/70, pulse 82, temperature 36.6 ?C (97.9 ?F), weight 95.3 kg (210 lb). Well-appearing and in no acute distress. EYES: Sclerae are anicteric bilaterally. ENT: Oral mucosa is unremarkable. There is no sign of thrush or mucositis. NECK: Supple. No enlargement of thyroid. LYMPHATIC: There is no palpable cervical, supraclavicular, axillary or inguinal adenopathy. RESPIRATORY: Inspiratory breath sounds are of normal intensity in all woodruff. No rales, wheezes or rhonchi. Expiratory phase is normal. CARDIOVASCULAR: Rhythm is regular. Normal intensity S1/S2. There is no gallop or murmur. ABDOMEN: The abdomen is nondistended. No organomegaly. Tender throughout the lower abdomen. Rectal: There is what appears to be a thrombosed hemorrhoid to the left of midline perianally with an area of central ulceration and small amount of bleeding. Extremities: No swelling or edema. SKIN: No jaundice. No rash. 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 No focal motor weakness. MUSCULOSKELETAL: NNo muscle wasting. ASSESSMENT/PLAN: (C18.9) Malignant neoplasm of colon, unspecified part of colon (HCC) (primary encounter diagnosis) (C78.6, C80.1) Peritoneal carcinomatosis (HCC) (C78.7) Metastasis to liver (HCC) (L27.0) Drug rash Assessment: -KPS is 90%. -We again addressed his overall clinical course. He is tolerating FOLFIRI well but the progressive symptoms of abdominal pain or becoming concerning for progression of disease. He also is reluctant to come to office visits with each treatment or every other treatment. I again explained to him that in the setting of metastatic disease, the best strategy is continual treatment. At this juncture, we've decided on another CT scan prior to the next cycle of chemotherapy and if he has responding or stable disease we will keep on with treatment. If he has progressive disease, then we can consider adding panitumumab back to his therapy. -He is going to contact Dr. Izabela Magana who is a personal friend of his about seeing him for the potential hemorrhoid. -MMR proficient. [facility] sent previous testing that had been done at the time of his surgery 02/2016. Please see scanned document. Plan: -Continue FOLFIRI with dose reduction of irinotecan and 5-fluorouracil. -CT scan following prior to cycle #4. -Monitor CEA. -Continue olanzapine and dexamethasone for nausea. Geraldo Stone DO CNOVSP Observed: 09/18/2017 Status: COMPLETED Source: [place] 10:50 AM [facility] REPOSITORY Visit (SP) Office ([place]) BECCA MAGANA ([id number]) 1955 M Date Time Provider Department 09/18/17 10:50 AM GERALDO STONE During your visit today, we recorded the following information about you: Temperature Pulse Blood pressure Weight 97.9 degrees 82/minute 112/70 95.3 kg Daisy Verduzco LPN 09/18/2017 10:59 AM Signed Est patient. Discuss recent labs. Daisy Verduzco LPN Geraldo Stone DO 09/25/2017 8:17 AM Addendum Diagnosis: 1) Metastatic recurrence of stage III colon cancer. MSI stable. BRAF - A sequence change: c.1781AANDgt;G (p.Cff512Awg) was detected at approximately 48% allele proportion. [Reference sequence: (NM_004333.4)]. KRAS - No variant detected [Reference?sequence: (NM_004985.4)]. NRAS - No variant detected [Reference sequence: (NM_002524.4)]. Patient referred by ongoing management of metastatic colon cancer. HPI: The patient is a 61 yo male who developed abdominal pain around June 2014. His symptoms progressively worsened throughout the spring. He also began losing weight in the spring and this culminated in a hospitalization for what was thought to be diverticulitis in December 2014. He underwent a CT scan which was thought to demonstrated a left lower quadrant abscess. The drain was placed and he was treated with antibiotic treatment. Pain flared and a repeat CT scan on 01/24/15 demonstrated marked inflammatory phlegmonous changes of the proximal sigmoid colon. He therefore underwent a colonoscopy and sigmoid colon resection with lymph node dissection on 01/29/2015. The sigmoid colon was noted to be adherent to the anterior abdominal wall and small bowel. The final pathology demonstrated an invasive moderately differentiated adenocarcinoma, tumor extension through the colonic wall and involving the muscularis propria of the small bowel. The proximal margin resection had a small focus of tumor present at the serosal surface. None of 25 lymph nodes were involved. The patient went on to receive 12 cycles FOLFOX which she finished on 09/13/2015. Surveillance CT scan the abdomen and pelvis on January 06, 2016 demonstrated a small omental nodules. He was treated with 4 cycles of FOLFIRI and then underwent exploratory laparotomy, excision of peritoneal/liver/small bowel/mesenteric nodules, heated intraperitoneal chemotherapy (HIPEC) administration for 100 minutes, cystoscopy with bilateral ureteral stent placement on 05/22/2016. Pathology: 1. Small bowel peritoneal nodules, excision (A) - Organizing fibrous adhesions. - No evidence of malignancy. 2. Left liver nodule, biopsy (B) - Adenocarcinoma in liver, consistent with colonic primary. 3. Omentum, excision (C) - Infiltrating adenocarcinoma, consistent with colonic primary. 4. Left upper quadrant abdominal wall, biopsy (D) - Infiltrating adenocarcinoma, consistent with colonic primary. 5. Pelvic nodule and omentum, excision (E) - Infiltrating adenocarcinoma, consistent with colonic primary. - One lymph node, negative for malignancy (0/1). 6. Ileal nodule, excision (F) - Infiltrating adenocarcinoma, consistent with colonic primary. In end of July/first week of August this year he underwent repeat staging workup (CT and PET) which unfortunately showed liver metastasis and intra-abdominal metastases. He recently started back on chemotherapy with FOLFIRI and cetuximab. He's had 2 cycles to date. Previous therapy: 1) FOLFOX ?12 cycles completed 09/13/2015. 2) FOLFIRI x4 cycles. 3) Exploratory lap 04/2016 with HIPEC (mitomycin). Current therapy: 1) FOLFIRI (with cetuximab--side effects permitting). Currently on hold. Interim history: He's been tolerating FOLFIRI pretty well this time around with minimal nausea and other side effect. His appetite is been good. This past weekend he had several episodes of gnawing abdominal pain. They weren't associated with any nausea or change in bowel habits. He still has some abdominal tenderness. At the time of his most recent CT, he said after he expelled oral contrast he developed a bleeding hemorrhoid. It still bleeding but slowing down. He doesn't have any pain or itching from these lesions. Symptoms from neuropathy are stable. PMH, medications and allergies as below personally reviewed by me today. Any changes documented in appropriate section. ROS: Constitutional: Denies episodes of fever and night sweats. Normal appetite. Neuro: Denies HIDALGO, vertigo, dizziness and imbalance. HEENT: No recent change in voice, vision or hearing. Resp: Denies cough, wheeze and hemoptysis. Denies shortness of breath at rest. Denies ARENAS. CVS: Denies exertional chest pain, PND, orthopnea and LE edema. GI: Denies dysgeusia. Denies symptoms of stomatitis. : Denies dysuria or gross hematuria. No symptoms of bladder outlet obstruction. Endo: Denies hot flashes. Denies polyuria and polydipsia. Denies heat and cold intolerance. Musculoskeletal: Denies bone, back, joint and muscular pain. Derm: Denies jaundice and diffuse pruritis. Heme: Denies unusual bleeding and unexplained bruising. Psych: Normal mood. PHYSICAL EXAM: Vitals: Blood pressure 112/70, pulse 82, temperature 36.6 ?C (97.9 ?F), weight 95.3 kg (210 lb). Well-appearing and in no acute distress. EYES: Sclerae are anicteric bilaterally. ENT: Oral mucosa is unremarkable. There is no sign of thrush or mucositis. NECK: Supple. No enlargement of thyroid. LYMPHATIC: There is no palpable cervical, supraclavicular, axillary or inguinal adenopathy. RESPIRATORY: Inspiratory breath sounds are of normal intensity in all woodruff. No rales, wheezes or rhonchi. Expiratory phase is normal. CARDIOVASCULAR: Rhythm is regular. Normal intensity S1/S2. There is no gallop or murmur. ABDOMEN: The abdomen is nondistended. No organomegaly. Tender throughout the lower abdomen. Rectal: There is what appears to be a thrombosed hemorrhoid to the left of midline perianally with an area of central ulceration and small amount of bleeding. Extremities: No swelling or edema. SKIN: No jaundice. No rash. 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 No focal motor weakness. MUSCULOSKELETAL: NNo muscle wasting. ASSESSMENT/PLAN: (C18.9) Malignant neoplasm of colon, unspecified part of colon (HCC) (primary encounter diagnosis) (C78.6, C80.1) Peritoneal carcinomatosis (HCC) (C78.7) Metastasis to liver (HCC) (L27.0) Drug rash Assessment: -KPS is 90%. -We again addressed his overall clinical course. He is tolerating FOLFIRI well but the progressive symptoms of abdominal pain or becoming concerning for progression of disease. He also is reluctant to come to office visits with each treatment or every other treatment. I again explained to him that in the setting of metastatic disease, the best strategy is continual treatment. At this juncture, we've decided on another CT scan prior to the next cycle of chemotherapy and if he has responding or stable disease we will keep on with treatment. If he has progressive disease, then we can consider adding panitumumab back to his therapy. -He is going to contact Dr. Izabela Magana who is a personal friend of his about seeing him for the potential hemorrhoid. -MMR proficient. [place] sent previous testing that had been done at the time of his surgery 02/2016. Please see scanned document. Plan: -Continue FOLFIRI with dose reduction of irinotecan and 5-fluorouracil. -CT scan following prior to cycle #4. -Monitor CEA. -Continue olanzapine and dexamethasone for nausea. Geraldo Stone DO Referring Provider: GERALDO STONE [[id number]] Allergies As of Date: 09/18/2017 (No Known Allergies) Date Reviewed: 09/18/2017 Reviewed by: Daisy Verduzco LPN - Fully Assessed Reason for Visit: Established Patient [175] Primary Visit Diagnosis:Malignant neoplasm of sigmoid colon (HCC) [C18.7] Other Visit Diagnoses:Metastasis to liver (HCC) [C78.7] Peritoneal carcinomatosis (HCC) [C78.6, C80.1] Order(s):CT ABD/PEL W IVCON [[id number]] Order #: [id number] FUTURE CT CHEST W IVCON [[id number]] Order #: [id number] FUTURE [] iv contrast (radiology procedure)CT Chest ABD/PEL-Inject, intravenously, once for 1 dose.No IV access, insert saline lock prior to the beginning of sedation, infusion, injection of imaging exam. Discontinue saline lock post exam. If Pt. has a central line or IVAD, may access for administration according to line specific nursing protocol. Once exam is complete flush line and de- access according to line specific nursing protocol in the CT contrast administration guidelines link.Disp: 1 EachRfl: 0 [] enteric contrast (radiology procedure)For CT CHESTABD/PEL W IVCON Routine order Administer, As Directed One Time Only, via Oral, Rectal, both Oral and Rectal, Enteric Tube, Stoma or Indwelling Catheter, Enteric Contrast as designated per enteric contrast guidelinesDisp: 1 EachRfl: 0 Follow-up and Disposition History Recorded Prescriptions as of 09/18/2017 Sig: OLANZAPINE 10 MG TABLET Take 1 tablet by mouth daily * DEXAMETHASONE 4 MG TABLET Take 1 tablet by mouth twice * IV CONTRAST (RADIOLOGY PROCED* CT Chest ABD/PEL-Inject, intr* ENTERIC CONTRAST (RADIOLOGY P* For CT CHESTABD/PEL W IVCON R* OMEPRAZOLE 20 MG CAPSULE,REJI* Take 2 capsules by mouth once* ONDANSETRON HCL 8 MG TABLET Take 1 tablet by mouth every * [id number]* Take 10 mL by mouth every 4 h* Problem List As Of Date 09/18/2017 Noted Resolved Colon cancer (HCC) [C18.9] 08/21/2017 Peritoneal carcinomatosis (HCC) [C78.6, C80.1] INVALID FOR* Metastasis to liver (HCC) [C78.7] INVALID FOR* More... Drug rash [L27.0] INVALID FOR* Malignant neoplasm of sigmoid colon (HCC) [C18.*INVALID FOR* Visit Notes: >> Daisy Verduzco LPN [place] Sep 18, 2017 10:40 AM Status: Signed Est patient. Discuss recent labs. Daisy Verduzco LPN Encounter Status:Closed by GERALDO STONE DO on 09/18/17 ROLANDO SALAZAR Collected: 09/18/2017 Status: F Source: [place] 10:35 AM [facility] REPOSITORY TYPE CODE TESTS RESULT OUT OF REFERENCE UNITS RANGE LAB NAWB 135-146 mmol/L Sodium, Whole 142 Bld LAB K1WB 3.5-5.0 mmol/L Potassium,Who 3.9 le Bld LAB CLWB 98-110 mmol/L Chloride, 101 Whole Bld LAB ICAWB 1.08-1.30 mmol/L High Ionized 1.34 Calcium, WB Result Comment: Please note: This value represents ionized calcium not total calcium. LAB CO2WB 23-32 mmol/L Low TCO2, Whole 22 Blood LAB GLUWB 65-100 mg/dL High Glucose, 104 Whole Bld LAB BUNWB 10-25 mg/dL BUN, Whole 20 Blood LAB BCRET 0.70-1.40 mg/dL Creatinine,Wh 1.00 ole Bld LAB AGAPWB 0-15 mmol/L High Anion Gap, 19 Whole Bld LAB GFRAA eGFR- >60 Amer. LAB GFRNAA . eGFR-All >60 Other Races Result Comment: eGFR (Estimated GFR) Units of measure: mL/min/1.73 meters squared eGFR is derived from the reexpressed MDRD Study equation using the following parameters: serum creatinine, age, gender and race. The creatinine assay has been calibrated to be traceable to IDMS. An eGFR <60 mL/min/1.73m2 for >3 months is consistent with chronic kidney disease. Refer to KDOQI guidelines for clinical interpretation. In patients with unstable renal function, e.g. those with acute kidney injury, the eGFR may not accurately reflect actual GFR. ROLANDO ABS GR + CBC Collected: 09/18/2017 Status: F Source: [place] 10:35 AM [facility] REPOSITORY TYPE CODE TESTS RESULT OUT OF REFERENCE UNITS RANGE LAB WWBC 3.70-11.00 k/uL [place] WBC 4.73 LAB WRBC 4.20-6.00 m/uL Low [place] RBC 4.16 LAB WHGB 13.0-17.0 g/dL Low [place] Hemoglobin 12.4 LAB WHCT 39.0-51.0 % Low [place] Hematocrit 36.5 LAB WMCV 80.0-100.0 fL [place] MCV 87.7 LAB WMCH 26.0-34.0 pg [place] MCH 29.8 LAB WMCHC 30.5-36.0 g/dL [place] MCHC 34.0 LAB WRDW 11.5-15.0 % [place] High RDW 15.7 LAB WPLT 150-400 k/uL Low [place] Platelet Cnt 127 LAB WMPV 9.0-12.7 fL Low [place] MPV 8.1 Result Comment: Test performed at: [facility] [place] [facility], [address] [place] [address]. LAB ABGRAN 1.45-7.50 k/uL Absol Gran 2.67 Count HEPATIC FUNCTN PANEL Collected: 09/18/2017 Status: F Source: [place] 10:35 AM [facility] REPOSITORY TYPE CODE TESTS RESULT OUT OF REFERENCE UNITS RANGE LAB ALB 3.9-4.9 g/dL Albumin 3.9 LAB TBIL 0.2-1.3 mg/dL Bilirubin, Total 0.5 LAB CBIL <0.2 mg/dL Bilirubin,Conjuga <0.2 [place] LAB ALKP 36-108 U/L Alkaline Phosphatase 72 LAB AST 14-40 U/L AST 23 LAB ALT 10-54 U/L ALT 24 LAB TP 6.3-8.0 g/dL Protein, Total 6.7 Performed By: #### YOKO, CEA #### [facility] [address] [place], [place] [address] CEA Collected: 09/18/2017 Status: F Source: [place] 10:35 AM [facility] REPOSITORY TYPE CODE TESTS RESULT OUT OF RANGE REFERENCE UNITS LAB CEA 0.0-2.9 ng/mL High CEA 21.0 Result Comment: Test analyzed by the Brandon DxI method. Performed By: #### HFP, CEA #### [facility] [address] [place], [place] [address] EMERGENCY REPORT Observed: 09/06/2017 Status: F [facility] EMERGENCY ROOM REPORT NAME NUMBER SEX AGE ADMIT DISC TYPE MED.RECORD# BECCA MAGANA [id number] M 61 05/28/2017 O/P [id number] ROOM:[id number] DATE OF :1955 PHYSICIAN NO.:[id number] PHYSICIAN NAME:Mariely Chowdary MD PHYSICIAN:Klever Mata M.D. CHIEF COMPLAINT: Chest pain. HISTORY OF PRESENT ILLNESS: The patient is a 61-year-old male with a history significant for gastroesophageal reflux disease and colorectal cancer who presents with substernal chest pain. The patient states that the pain is similar to his reflux pain. He also notes that he has not had his gastroesophageal reflux medications for the last 3 days. The patient describes the pain as substernal and burning in nature and also notes that he is having some subxiphoid/left upper quadrant pain. The patient's and daughter are both with him, and they express concern for possible recurrence of abdominal cancer. The patient notes that the pain is constant in nature, and nothing seems to make it particularly better or worse. The patient's notes that he has been in considerable pain throughout his abdomen for the last 2 weeks, which is longer than patient initially advertised and longer than he says he was out of his reflux disease medications. PAST MEDICAL HISTORY: Significant for colorectal cancer. PAST SURGICAL HISTORY: Significant for: (1) Appendectomy. (2) Tonsillectomy. (3) Sigmoidectomy. ALLERGIES: No known drug allergies. SOCIAL HISTORY: Patient denies tobacco, alcohol, illicit drug or prescription drug use or abuse. Immunizations are noted to be up to date. REVIEW OF SYSTEMS: A full 10-point review of systems is documented on the ED paper chart. Please see this for additional details. PHYSICAL EXAMINATION: Vitals: Temperature is 99.3, pulse is 65, respiratory rate 18, blood pressure 161/88, oxygen saturation 98%. Weight is 210 pounds. General: The patient is awake, alert, and oriented x3, reclining in ED bed 2 in no acute distress, and patient does appear to be in mild discomfort. HEENT: Atraumatic, normocephalic. Extraocular muscles intact. Mucous membranes moist. Neck: Range of motion normal, supple. Pulmonary: Clear to auscultation bilaterally. No wheezes, rales, or rhonchi. Cardiovascular: Regular rate and rhythm. S1, S2 heard. No murmurs, rubs, or gallops. Abdomen: Soft, mild diffuse abdominal tenderness, more specifically noted in epigastric area. No rebound tenderness. Skin: Warm, normal coloration, no bruising or rashes. Neuro: Cranial nerves 2-12 grossly intact, normal sensation, 5/5 muscle strength grossly in all 4 extremities. DIAGNOSTIC DATA: Studies: Chest x-ray was within normal limits and not significant for any acute disease. CT abdomen and pelvis was significant for possibility of acute cholecystitis. Laboratories: CBC was significant for a hemoglobin of 12.5 and a relative neutrophilia with neutrophils being 79% and a level of 8.3. CMP was unremarkable. Troponins were less than 0.01. EKG: Significant for a normal sinus rhythm without evidence of ischemia in anterior, lateral, or inferior leads. MEDICAL DECISION MAKING: Patient is a 61-year-old male with a history of colorectal cancer and GERD who presents with symptoms that may be consistent with ACS or acid reflux with concerns for possibility of recurrence of cancer. A CT abdomen failed to show any recurrent cancer but did note a gallbladder with an appearance consistent with potential acute cholecystitis. CT review did recommend a followup ultrasound for gallbladder if acute cholecystitis is suspected. Patient did not have any particular pain in the right upper quadrant. The pain that patient did have responded very well to 30 mg of Toradol. Discussed results and findings with family and patient. All of their questions were answered to their satisfaction during their time here in the emergency department. EMERGENCY ROOM REPORT [facility] [address] [place] [address] EMERGENCY ROOM REPORT NAME NUMBER SEX AGE ADMIT DISC TYPE MED.RECORD# BECCA MAGANA [id number] M 61 05/28/2017 O/P [id number] ROOM:[id number] DATE OF :1955 PHYSICIAN NO.:[id number] PHYSICIAN NAME:Mariely Chowdary MD PHYSICIAN:Klever Mata M.D. PLAN/DISPOSITION: Given the patient's history and symptoms, I discussed with the patient and recommended admission for stress tests to complete the ACS workup as well as surgical consult for potential cholecystectomy pending results of a right upper quadrant ultrasound. Ideally, it will be done tomorrow. Patient and family expressed understanding of the above plan and were agreeable to hospital admission at this time. The patient's condition is good. D: Klever Mata M.D. TD: 05/29/2017 07:01:08 JOB #: [id number] DR. KLEVER MATA EMERGENCY DEPARTMENT 09/06/17 02:29 Transcribed by: ALINA 05/29/2017 07:01:08 Copy for: KIERRA ERNST MD Copy for: EPI Baires EMERGENCY ROOM REPORT BECCA MAGANA 2 [place] ABS GR + CBC Collected: 09/05/2017 Status: F Source: [place] 10:00 AM [facility] REPOSITORY TYPE CODE TESTS RESULT OUT OF REFERENCE UNITS RANGE LAB WWBC 3.70-11.00 k/uL [place] WBC 4.56 LAB WRBC 4.20-6.00 m/uL Low [place] RBC 4.15 LAB WHGB 13.0-17.0 g/dL Low [place] Hemoglobin 12.2 LAB WHCT 39.0-51.0 % Low [place] Hematocrit 36.4 LAB WMCV 80.0-100.0 fL [place] MCV 87.7 LAB WMCH 26.0-34.0 pg [place] MCH 29.4 LAB WMCHC 30.5-36.0 g/dL [place] MCHC 33.5 LAB WRDW 11.5-15.0 % [place] High RDW 15.5 LAB WPLT 150-400 k/uL [place] Platelet Cnt 159 LAB WMPV 9.0-12.7 fL Low [place] MPV 8.9 Result Comment: Test performed at: [facility] [place], [address] [place] [address]. LAB ABGRAN 1.45-7.50 k/uL Absol Gran 2.49 Count [place] ISTAT BMP Collected: 09/05/2017 Status: F Source: [place] 10:00 AM [facility] REPOSITORY TYPE CODE TESTS RESULT OUT OF REFERENCE UNITS RANGE LAB NAWB 135-146 mmol/L Sodium, Whole 145 Bld LAB K1WB 3.5-5.0 mmol/L Potassium,Who 3.9 le Bld LAB CLWB 98-110 mmol/L Chloride, 107 Whole Bld LAB ICAWB 1.08-1.30 mmol/L Ionized 1.26 Calcium, WB Result Comment: Please note: This value represents ionized calcium not total calcium. LAB CO2WB 23-32 mmol/L TCO2, Whole 25 Blood LAB GLUWB 65-100 mg/dL High Glucose, 126 Whole Bld LAB BUNWB 10-25 mg/dL BUN, Whole 18 Blood LAB BCRET 0.70-1.40 mg/dL Creatinine,Wh 0.90 ole Bld LAB AGAPWB 0-15 mmol/L Anion Gap, 13 Whole Bld LAB GFRAA eGFR- >60 Amer. LAB GFRNAA . eGFR-All >60 Other Races Result Comment: eGFR (Estimated GFR) Units of measure: mL/min/1.73 meters squared eGFR is derived from the reexpressed MDRD Study equation using the following parameters: serum creatinine, age, gender and race. The creatinine assay has been calibrated to be traceable to IDMS. An eGFR <60 mL/min/1.73m2 for >3 months is consistent with chronic kidney disease. Refer to KDOQI guidelines for clinical interpretation. In patients with unstable renal function, e.g. those with acute kidney injury, the eGFR may not accurately reflect actual GFR. HOSP Observed: 08/22/2017 Status: COMPLETED Source: [place] 8:30 AM [facility] REPOSITORY Infusion Center ([facility]) BECCA MAGANA ([id number]) 1955 M Date Time Provider Department 08/22/17 8:30 AM TREATMENT 3 [facility] During your visit today, we recorded the following information about you: Temperature Pulse Blood pressure 98.1 degrees 75/minute 124/70 Referring Provider: GERALDO STONE [[id number]] Allergies As of Date: 08/22/2017 (No Known Allergies) Date Reviewed: 08/22/2017 Reviewed by: Tiara Rivero (Rn) DENAE Kaiser - Fully Assessed Reason for Visit: Chemotherapy Treatment [771] Primary Visit Diagnosis:Malignant neoplasm of sigmoid colon (HCC) [C18.7] Other Visit Diagnoses:Metastasis to liver (HCC) [C78.7] Peritoneal carcinomatosis (HCC) [C78.6, C80.1] Order(s):[] fosaprepitant 150 mg in NaCl 0.9% 250 mL iv piggybackDisp: Rfl: [] ondansetron (PF) 8 mg injection (ZOFRAN)Disp: Rfl: [] dexamethasone sodium phosphate 10 mg injection (DECADRON)Disp: Rfl: [] hyoscyamine sublingual 0.25 mg tab(s) (LEVSIN SL)Disp: Rfl: [] Irinotecan 273 mg in D5W 500 mL (CAMPTOSAR)Disp: Rfl: [] leucovorin 872 mg in D5W 250 mLDisp: Rfl: [] fluorouracil 698 mg injection (ADRUCIL)Disp: Rfl: fluorouracil 4,142 mg in NaCl 0.9% 19.16 mL, empty container, plastic bag 102 mLDisp: Rfl: atropine 0.4 mg injectionDisp: Rfl: NaCl 0.9% iv infusionDisp: Rfl: diphenhydrAMINE 50 mg injection (BENADRYL)Disp: Rfl: hydrocortisone sodium succinate (PF) 100 mg injection (Solu-CORTEF)Disp: Rfl: EPINEPHrine 1 mg/mL (1 mL) 0.3 mg injectionDisp: Rfl: TREATMENT PARAMETERS [[id number]] Order #: [id number]: 1 [facility] NURSING COMMUNICATION [[id number]] Order #: [id number]: 1 STANDING Prescriptions as of 08/22/2017 Sig: OLANZAPINE 10 MG TABLET Take 1 tablet by mouth daily * DEXAMETHASONE 4 MG TABLET Take 1 tablet by mouth twice * OMEPRAZOLE 20 MG CAPSULE,REJI* Take 2 capsules by mouth once* ONDANSETRON HCL 8 MG TABLET Take 1 tablet by mouth every * [id number]* Take 10 mL by mouth every 4 h* Problem List As Of Date 08/22/2017 Noted Resolved Colon cancer (HCC) [C18.9] 08/21/2017 Peritoneal carcinomatosis (HCC) [C78.6, C80.1] INVALID FOR* Metastasis to liver (HCC) [C78.7] INVALID FOR* More... Drug rash [L27.0] INVALID FOR* Malignant neoplasm of sigmoid colon (HCC) [C18.*INVALID FOR* Prescriptions ordered this encounter Disp Refills Start End FOSAPREPITANT 150 MG IV PGBK 08/22/2017 08/22/2017 Route: INTRAVENOUS ONDANSETRON HCL (PF) 4 MG/2 ML INJEC* 08/22/2017 08/22/2017 Route: INTRAVENOUS DEXAMETHASONE 10 MG/ML INJECTION CANELO* 08/22/2017 08/22/2017 Route: INTRAVENOUS HYOSCYAMINE 0.125 MG SUBLINGUAL TABL* 08/22/2017 08/22/2017 Route: SUBLINGUAL IRINOTECAN IV PGBK 08/22/2017 08/22/2017 Route: INTRAVENOUS LEUCOVORIN IV PGBK 08/22/2017 08/22/2017 Route: INTRAVENOUS FLUOROURACIL 5 GRAM/100 ML INTRAVENO* 08/22/2017 08/22/2017 Route: INTRAVENOUS FLUOROURACIL IV INFUSION CASSETTE W* 08/22/2017 08/24/2017 Route: INTRAVENOUS ATROPINE 0.4 MG/ML INJECTION SOLUTION 08/22/2017 Route: INTRAVENOUS SODIUM CHLORIDE 0.9 % INTRAVENOUS SO* 08/22/2017 Cmt: Inform physician Route: INTRAVENOUS DIPHENHYDRAMINE 50 MG/ML INJECTION S* 08/22/2017 Route: INTRAVENOUS HYDROCORTISONE SOD SUCCINATE (PF) 10* 08/22/2017 Route: INTRAVENOUS EPINEPHRINE 1 MG/ML (1 ML) INJECTION* 08/22/2017 Route: INTRAMUSCULA Encounter Status:Closed by TIARA KAISER on 08/22/17 PROGRESS Observed: 08/21/2017 Status: COMPLETED Source: [place] 11:48 AM [facility] REPOSITORY HNO ID: [id number] Author: Fina Myrick Ct Service: (none) Author Type: (none) Type: Progress Notes Filed: 08/21/2017 11:49 AM Note Text: Radiology Service Progress Note PATIENT NAME: Becca Magana DATE OF SERVICE: August 21, 2017 TIME: 11:48 AM PATIENT IDENTITY VERIFICATION COMPLETED USING TWO (2) METHODS: Patient confirmed name verbally and Date of . PATIENT GENDER DATA: Male PATIENT RELEVANT IMPLANT DATA REVIEWED: Not Applicable CONTRAST INDUCED NEPHROPATHY RISK FACTORS: Patient age > 60 years CREATININE: Creatinine Date Value Ref Range Status 04/10/2017 0.98 0.73 - 1.22 mg/dL Final 02/28/2017 1.14 0.73 - 1.22 mg/dL Final 02/12/2017 1.04 0.73 - 1.22 mg/dL Final Creatinine, Whole Blood (iSTAT) Date Value Ref Range Status 08/21/2017 1.00 0.70 - 1.40 mg/dL Final 06/18/2017 1.10 0.70 - 1.40 mg/dL Final eGFR-All Other Races Date Value Ref Range Status 08/21/2017 >60 . Final Comment: eGFR (Estimated GFR) Units of measure: mL/min/1.73 meters squared eGFR is derived from the reexpressed MDRD Study equation using the following parameters: serum creatinine, age, gender and race. The creatinine assay has been calibrated to be traceable to IDMS. An eGFR <60 mL/min/1.73m2 for >3 months is consistent with chronic kidney disease. Refer to KDOQI guidelines for clinical interpretation. In patients with unstable renal function, e.g. those with acute kidney injury, the eGFR may not accurately reflect actual GFR. eGFR- Date Value Ref Range Status 08/21/2017 >60 Final P.O.C.T. RESULTS: POC done: Yes, See Lab Tab August 21, 2017 RADIOLOGIST NOTIFIED?: No ALLERGIES: Reviewed and unchanged CONTRAST ALLERGY: NO. PERIPHERAL IV ACCESS: power port lt arm accessed by hemoc RADIOLOGY DEPARTMENT: CT; Exam(s) Completed: Chest Abdomen Pelvis SIGNED BY: Fina Myrick Ct August 21, 2017 11:48 AM PROGRESS Observed: 08/21/2017 Status: COMPLETED Source: [place] 11:46 AM [facility] REPOSITORY HNO ID: [id number] Author: Geraldo Stone Service: (none) Author Type: Physician Type: Progress Notes Filed: 08/21/2017 12:56 PM Note Text: Diagnosis: 1) Metastatic recurrence of stage III colon cancer. MSI stable. BRAF - A sequence change: c.1781A>G ([id number]) was detected at approximately 48% allele proportion. [Reference sequence: (NM_[id number])]. KRAS - No variant detected [Reference?sequence: (NM_004985.4)]. NRAS - No variant detected [Reference sequence: (NM_[id number])]. Patient referred by ongoing management of metastatic colon cancer. HPI: The patient is a 61 yo male who developed abdominal pain around June 2014. His symptoms progressively worsened throughout the spring. He also began losing weight in the spring and this culminated in a hospitalization for what was thought to be diverticulitis in December 2014. He underwent a CT scan which was thought to demonstrated a left lower quadrant abscess. The drain was placed and he was treated with antibiotic treatment. Pain flared and a repeat CT scan on 01/24/15 demonstrated marked inflammatory phlegmonous changes of the proximal sigmoid colon. He therefore underwent a colonoscopy and sigmoid colon resection with lymph node dissection on 01/29/2015. The sigmoid colon was noted to be adherent to the anterior abdominal wall and small bowel. The final pathology demonstrated an invasive moderately differentiated adenocarcinoma, tumor extension through the colonic wall and involving the muscularis propria of the small bowel. The proximal margin resection had a small focus of tumor present at the serosal surface. None of 25 lymph nodes were involved. The patient went on to receive 12 cycles FOLFOX which she finished on 09/13/2015. Surveillance CT scan the abdomen and pelvis on January 06, 2016 demonstrated a small omental nodules. He was treated with 4 cycles of FOLFIRI and then underwent exploratory laparotomy, excision of peritoneal/liver/small bowel/mesenteric nodules, heated intraperitoneal chemotherapy (HIPEC) administration for 100 minutes, cystoscopy with bilateral ureteral stent placement on 05/22/2016. Pathology: 1. Small bowel peritoneal nodules, excision (A) - Organizing fibrous adhesions. - No evidence of malignancy. 2. Left liver nodule, biopsy (B) - Adenocarcinoma in liver, consistent with colonic primary. 3. Omentum, excision (C) - Infiltrating adenocarcinoma, consistent with colonic primary. 4. Left upper quadrant abdominal wall, biopsy (D) - Infiltrating adenocarcinoma, consistent with colonic primary. 5. Pelvic nodule and omentum, excision (E) - Infiltrating adenocarcinoma, consistent with colonic primary. - One lymph node, negative for malignancy (0/1). 6. Ileal nodule, excision (F) - Infiltrating adenocarcinoma, consistent with colonic primary. In end of July/first week of August this year he underwent repeat staging workup (CT and PET) which unfortunately showed liver metastasis and intra-abdominal metastases. He recently started back on chemotherapy with FOLFIRI and cetuximab. He's had 2 cycles to date. Previous therapy: 1) FOLFOX ?12 cycles completed 09/13/2015. 2) FOLFIRI x4 cycles. 3) Exploratory lap 04/2016 with HIPEC (mitomycin). Current therapy: 1) FOLFIRI (with cetuximab--side effects permitting). Currently on hold. Interim history: He offers no complaints today. However his has noticed over the last week or so his been having increasing abdominal pain. She says she'll often find him walking along holding his abdomen around the umbilicus. His appetite is doing very well his weight is stable no episodes of jaundice or nausea. Bowels are working normally. Symptoms from neuropathy are stable. PMH, medications and allergies as below personally reviewed by me today. Any changes documented in appropriate section. ROS: Constitutional: Denies episodes of fever and night sweats. Normal appetite. Neuro: Denies HIDALGO, vertigo, dizziness and imbalance. HEENT: No recent change in voice, vision or hearing. Resp: Denies cough, wheeze and hemoptysis. Denies shortness of breath at rest. Denies ARENAS. CVS: Denies exertional chest pain, PND, orthopnea and LE edema. GI: Denies dysgeusia. Denies symptoms of stomatitis. : Denies dysuria or gross hematuria. No symptoms of bladder outlet obstruction. Endo: Denies hot flashes. Denies polyuria and polydipsia. Denies heat and cold intolerance. Musculoskeletal: Denies bone, back, joint and muscular pain. Derm: Denies jaundice and diffuse pruritis. Heme: Denies unusual bleeding and unexplained bruising. Psych: Normal mood. PHYSICAL EXAM: Vitals: Blood pressure 138/79, pulse 69, temperature 36.6 ?C (97.9 ?F), weight 96.6 kg (213 lb). Well-appearing and in no acute distress. EYES: Sclerae are anicteric bilaterally. ENT: Oral mucosa is unremarkable. There is no sign of thrush or mucositis. NECK: Supple. No enlargement of thyroid. LYMPHATIC: There is no palpable cervical, supraclavicular, axillary or inguinal adenopathy. RESPIRATORY: Inspiratory breath sounds are of normal intensity in all woodruff. No rales, wheezes or rhonchi. Expiratory phase is normal. CARDIOVASCULAR: Rhythm is regular. Normal intensity S1/S2. There is no gallop or murmur. ABDOMEN: The abdomen is nondistended. No organomegaly. There is a tender abdominal wall mass just above the umbilicus. Extremities: No swelling or edema. SKIN: No jaundice. No rash. 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 No focal motor weakness. MUSCULOSKELETAL: NNo muscle wasting. ASSESSMENT/PLAN: (C18.9) Malignant neoplasm of colon, unspecified part of colon (HCC) (primary encounter diagnosis) (C78.6, C80.1) Peritoneal carcinomatosis (HCC) (C78.7) Metastasis to liver (HCC) (L27.0) Drug rash Assessment: -KPS is 90%. -I personally reviewed CT A/P images and again with patient and independently verified and agreed with the radiologist's findings. There is been progression of disease in terms of the splenic metastasis and omental metastasis. There is also an enlarging anterior abdominal wall metastasis just above the umbilicus. -The patient is clearly distraught about going back on chemotherapy so we talked about the most prominent symptoms for him included burning sensation of the tongue and nausea. Plan: -Resume FOLFIRI with dose reduction of irinotecan and 5-fluorouracil. -CT scan following recycles. -Monitor CEA. -Trial of olanzapine and dexamethasone for nausea. Geraldo Stone DO CNOVSP Observed: 08/21/2017 Status: COMPLETED Source: [place] 11:10 AM [facility] REPOSITORY Visit (SP) Office ([place]) BECCA MAGANA ([id number]) 1955 M Date Time Provider Department 08/21/17 11:10 AM GERALDO STONE During your visit today, we recorded the following information about you: Temperature Pulse Blood pressure Weight 97.9 degrees 69/minute 138/79 96.6 kg Azeb Virginie Mann LPN, [place] 08/21/2017 11:52 AM Signed Est . Pt, discuss recent ct and lab results, poss tx tomorrow Azeb AL Joe, DO 08/21/2017 12:56 PM Signed Diagnosis: 1) Metastatic recurrence of stage III colon cancer. MSI stable. BRAF - A sequence change: c.1781AANDgt;G (p.Ikx568Gyi) was detected at approximately 48% allele proportion. [Reference sequence: (NM_004333.4)]. KRAS - No variant detected [Reference?sequence: (NM_004985.4)]. NRAS - No variant detected [Reference sequence: (NM_002524.4)]. Patient referred by ongoing management of metastatic colon cancer. HPI: The patient is a 61 yo male who developed abdominal pain around June 2014. His symptoms progressively worsened throughout the spring. He also began losing weight in the spring and this culminated in a hospitalization for what was thought to be diverticulitis in December 2014. He underwent a CT scan which was thought to demonstrated a left lower quadrant abscess. The drain was placed and he was treated with antibiotic treatment. Pain flared and a repeat CT scan on 01/24/15 demonstrated marked inflammatory phlegmonous changes of the proximal sigmoid colon. He therefore underwent a colonoscopy and sigmoid colon resection with lymph node dissection on 01/29/2015. The sigmoid colon was noted to be adherent to the anterior abdominal wall and small bowel. The final pathology demonstrated an invasive moderately differentiated adenocarcinoma, tumor extension through the colonic wall and involving the muscularis propria of the small bowel. The proximal margin resection had a small focus of tumor present at the serosal surface. None of 25 lymph nodes were involved. The patient went on to receive 12 cycles FOLFOX which she finished on 09/13/2015. Surveillance CT scan the abdomen and pelvis on January 06, 2016 demonstrated a small omental nodules. He was treated with 4 cycles of FOLFIRI and then underwent exploratory laparotomy, excision of peritoneal/liver/small bowel/mesenteric nodules, heated intraperitoneal chemotherapy (HIPEC) administration for 100 minutes, cystoscopy with bilateral ureteral stent placement on 05/22/2016. Pathology: 1. Small bowel peritoneal nodules, excision (A) - Organizing fibrous adhesions. - No evidence of malignancy. 2. Left liver nodule, biopsy (B) - Adenocarcinoma in liver, consistent with colonic primary. 3. Omentum, excision (C) - Infiltrating adenocarcinoma, consistent with colonic primary. 4. Left upper quadrant abdominal wall, biopsy (D) - Infiltrating adenocarcinoma, consistent with colonic primary. 5. Pelvic nodule and omentum, excision (E) - Infiltrating adenocarcinoma, consistent with colonic primary. - One lymph node, negative for malignancy (0/1). 6. Ileal nodule, excision (F) - Infiltrating adenocarcinoma, consistent with colonic primary. In end of July/first week of August this year he underwent repeat staging workup (CT and PET) which unfortunately showed liver metastasis and intra-abdominal metastases. He recently started back on chemotherapy with FOLFIRI and cetuximab. He's had 2 cycles to date. Previous therapy: 1) FOLFOX ?12 cycles completed 09/13/2015. 2) FOLFIRI x4 cycles. 3) Exploratory lap 04/2016 with HIPEC (mitomycin). Current therapy: 1) FOLFIRI (with cetuximab--side effects permitting). Currently on hold. Interim history: He offers no complaints today. However his has noticed over the last week or so his been having increasing abdominal pain. She says she'll often find him walking along holding his abdomen around the umbilicus. His appetite is doing very well his weight is stable no episodes of jaundice or nausea. Bowels are working normally. Symptoms from neuropathy are stable. PMH, medications and allergies as below personally reviewed by me today. Any changes documented in appropriate section. ROS: Constitutional: Denies episodes of fever and night sweats. Normal appetite. Neuro: Denies HIDALGO, vertigo, dizziness and imbalance. HEENT: No recent change in voice, vision or hearing. Resp: Denies cough, wheeze and hemoptysis. Denies shortness of breath at rest. Denies ARENAS. CVS: Denies exertional chest pain, PND, orthopnea and LE edema. GI: Denies dysgeusia. Denies symptoms of stomatitis. : Denies dysuria or gross hematuria. No symptoms of bladder outlet obstruction. Endo: Denies hot flashes. Denies polyuria and polydipsia. Denies heat and cold intolerance. Musculoskeletal: Denies bone, back, joint and muscular pain. Derm: Denies jaundice and diffuse pruritis. Heme: Denies unusual bleeding and unexplained bruising. Psych: Normal mood. PHYSICAL EXAM: Vitals: Blood pressure 138/79, pulse 69, temperature 36.6 ?C (97.9 ?F), weight 96.6 kg (213 lb). Well-appearing and in no acute distress. EYES: Sclerae are anicteric bilaterally. ENT: Oral mucosa is unremarkable. There is no sign of thrush or mucositis. NECK: Supple. No enlargement of thyroid. LYMPHATIC: There is no palpable cervical, supraclavicular, axillary or inguinal adenopathy. RESPIRATORY: Inspiratory breath sounds are of normal intensity in all woodruff. No rales, wheezes or rhonchi. Expiratory phase is normal. CARDIOVASCULAR: Rhythm is regular. Normal intensity S1/S2. There is no gallop or murmur. ABDOMEN: The abdomen is nondistended. No organomegaly. There is a tender abdominal wall mass just above the umbilicus. Extremities: No swelling or edema. SKIN: No jaundice. No rash. 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 No focal motor weakness. MUSCULOSKELETAL: NNo muscle wasting. ASSESSMENT/PLAN: (C18.9) Malignant neoplasm of colon, unspecified part of colon (HCC) (primary encounter diagnosis) (C78.6, C80.1) Peritoneal carcinomatosis (HCC) (C78.7) Metastasis to liver (HCC) (L27.0) Drug rash Assessment: -KPS is 90%. -I personally reviewed CT A/P images and again with patient and independently verified and agreed with the radiologist's findings. There is been progression of disease in terms of the splenic metastasis and omental metastasis. There is also an enlarging anterior abdominal wall metastasis just above the umbilicus. -The patient is clearly distraught about going back on chemotherapy so we talked about the most prominent symptoms for him included burning sensation of the tongue and nausea. Plan: -Resume FOLFIRI with dose reduction of irinotecan and 5-fluorouracil. -CT scan following recycles. -Monitor CEA. -Trial of olanzapine and dexamethasone for nausea. Geraldo Stone DO Referring Provider: GERALDO STONE [[id number]] Allergies As of Date: 08/21/2017 (No Known Allergies) Date Reviewed: 08/21/2017 Reviewed by: Azeb Acevedo) AL Mann - Fully Assessed Reason for Visit: Established Patient [175] Primary Visit Diagnosis:Malignant neoplasm of sigmoid colon (HCC) [C18.7] Other Visit Diagnosis:Peritoneal carcinomatosis (HCC) [C78.6, C80.1] Order(s):OLANZapine (ZYPREXA) 10 mg tabletTake 1 tablet by mouth daily at bedtime. for 3 nights beginning the first day of chemotherapy.Disp: 30 tabletRfl: 2 dexamethasone (DECADRON) 4 mg tabletTake 1 tablet by mouth twice daily with meals. for 3 days beginning the day after each chemotherapy treatment.Disp: 30 tabletRfl: 2 Prescriptions as of 08/21/2017 Sig: OLANZAPINE 10 MG TABLET Take 1 tablet by mouth daily * DEXAMETHASONE 4 MG TABLET Take 1 tablet by mouth twice * OMEPRAZOLE 20 MG CAPSULE,REJI* Take 2 capsules by mouth once* ONDANSETRON HCL 8 MG TABLET Take 1 tablet by mouth every * NUHZZDYYZHXYUUH-MLPWIWE-ESTOF* Take 10 mL by mouth every 4 h* Medication notes this encounter OMEPRAZOLE 20 MG CAPSULE,DELAYED RELEASE >> Azeb Mann LPN, LPN 08/21/2017 11:07 AM >> AZEB MANN Aug 21, 2017 11:07 AM Hasn't used in 4 months ONDANSETRON HCL 8 MG TABLET >> Azeb Mann LPN, LPN 08/21/2017 11:08 AM >> AZEB MANN Aug 21, 2017 11:08 AM Hasn't had in 4 months MVHVWWIBRXCHYNP-USHQOLW-BXXXLPTXO ([facility]) >> Azeb Mann LPN, LPN 08/21/2017 11:07 AM >> AZEB MANN Aug 21, 2017 11:07 AM Hasn't used in 4 months Problem List As Of Date 08/21/2017 Noted Resolved Colon cancer (HCC) [C18.9] 08/21/2017 Peritoneal carcinomatosis (HCC) [C78.6, C80.1] INVALID FOR* Metastasis to liver (HCC) [C78.7] INVALID FOR* More... Drug rash [L27.0] INVALID FOR* Malignant neoplasm of sigmoid colon (HCC) [C18.*INVALID FOR* Visit Notes: >> Azeb Rachel (Planning Advisor) Mackenzie AL Brizuela Aug 21, 2017 11:08 AM Status: Signed Est . Pt, discuss recent ct and lab results, poss tx tomorrow Azeb GarayAL yarbrough Encounter Status:Closed by GERALDO STONE DO on 08/21/17 CT CHEST W IVCON Observed: 08/21/2017 Status: F Source: [place] 11:01 AM [facility] REPOSITORY * * *Final Report* * * DATE OF EXAM: Aug 21 2017 11:01AM [facility] 0539 - CT CHEST W IVCON / PROCEDURE REASON: multiple diagnoses * * * * Physician Interpretation * * * * EXAMINATION: CHEST CT WITH CONTRAST Indication: Malignant neoplasm of colon, unspecified Secondary malignant neoplasm of retroperitoneum and peritoneum Malignant (primary) neoplasm, unspecified Secondary malignant neoplasm of liver and intrahepatic bile duct Technique: Spiral CT acquisition of the chest from the thoracic inlet to the upper abdomen following IV contrast. M: [id number]_4 Contrast: 145 mL Omnipaque [address] Dose-Length Product: 1040 mGy*cm CT Dose Reduction Employed: Automated exposure control (AEC) Comparison: CT chest on 06/18/2017 RESULT: Limitations: None. Lines, tubes, and devices: There appears to be a left-sided PICC with the tip extending to the superior right atrium. Lung parenchyma and pleura: The central airways are patent. There is a 6 mm solid nodule or nodular density in the posterior right costophrenic recess, series 5 image 175. No definite new nodules noted. Dependent and mild bibasilar atelectasis is demonstrated. The lungs are clear of consolidative opacities. No pleural effusions or pneumothorax. Thoracic inlet, heart, and mediastinum: The visualized thyroid gland is unremarkable. No supraclavicular or axillary lymph node biopsy. There are a few subcentimeter in short axial mediastinal lymph nodes, unchanged. The thoracic aorta and main pulmonary artery are normal in caliber. The cardiac chambers are normal in size. No coronary artery atherosclerotic calcifications are noted, although the study is not optimized for coronary assessment. No pericardial effusion or thickening. Bones and soft tissues: Chest wall soft tissue remains unremarkable. The spine shows degenerative changes. No destructive osseous lesions appreciated. Upper abdomen: A dedicated CT abdomen and pelvis was performed concurrently and will be reported separately. . IMPRESSION: Stable 6 mm solid nodule/nodular density in the right lower lobe. No new nodules identified. Stable subcentimeter mediastinal lymph nodes with no progressive lymphadenopathy noted. Dyeing Machine Feeder: PSCB Transcribe Date/Time: Aug 22 2017 12:14P Dictated by : ALDO SIMS MD This examination was interpreted and the report reviewed and electronically signed by: ALDO SIMS MD on Aug 22 2017 1:59PM EST [id number] CT ABD/PEL W IVCON Observed: 08/21/2017 Status: F Source: [place] 11:01 AM [facility] REPOSITORY * * *Final Report* * * DATE OF EXAM: Aug 21 2017 11:01AM [facility] 0530 - CT ABD/PEL W IVCON / PROCEDURE REASON: multiple diagnoses * * * * Physician Interpretation * * * * EXAMINATION: CT ABDOMEN AND PELVIS WITH IV CONTRAST CLINICAL HISTORY: Colon cancer follow-up TECHNIQUE: CT of the abdomen and pelvis was performed using standard technique, scanning from just above the dome of the diaphragm to the symphysis pubis. M: CTAP_3 Contrast: Other: 145 ml of Omnipaque 300 Oral: 50 ml of 50ML Omnipaque [address] Radiation dose: Integrated Dose-length product (DLP) for this visit = 1040 mGy*cm. CT Dose Reduction Employed: Automated exposure control (AEC) COMPARISON: CT abdomen pelvis on 06/18/2017 RESULT: Liver: No mass. Biliary: No bile duct dilation. Status post cholecystectomy. Spleen: There is a 2.2 x 3.6 cm low-attenuation lesion in the spleen, previously 1.5 x 2.3 cm. No splenomegaly. Pancreas: No mass or duct dilation. Adrenals: No mass. Kidneys: Symmetric bilateral kidneys without mass lesion appreciated. No hydroureteronephrosis. GI tract: No dilation or wall thickening. Lymph nodes: Interval increase in size of previously mentioned mesenteric lymph node measuring 1.3 cm, series 8 image 93, previously 8 mm. Mesentery/Peritoneum: No ascites or mass. Retroperitoneum: No mass. Vasculature: The celiac axis and SMA are patent. The portal vein and branches, splenic vein, SMV, and hepatic veins are patent. Pelvis: No mass, ascites or fluid collection. The prostate is mildly enlarged. Bones/Soft Tissues: Interval increase in size of soft tissue component in the abdominal wall along the umbilicus, series 8 image 77. There are degenerative changes in the spine, with S1 Schmorl's node. No destructive osseous lesions identified. Lower thorax: A dedicated CT chest was performed concurrently and has been reported separately. IMPRESSION: Interval enlargement of splenic mass. Interval increase in size of mesenteric lymph node. More prominent soft tissue along the umbilicus; please clinically correlate. Dyeing Machine Feeder: LALY Transcribe Date/Time: Aug 22 2017 12:14P Dictated by : ALDO SIMS MD This examination was interpreted and the report reviewed and electronically signed by: ALDO SIMS MD on Aug 22 2017 2:45PM EST [id number] ROLANDO ABS GR + CBC Collected: 08/21/2017 Status: F Source: [place] 9:45 AM [facility] REPOSITORY TYPE CODE TESTS RESULT OUT OF REFERENCE UNITS RANGE LAB WWBC 3.70-11.00 k/uL [place] WBC 5.20 LAB WRBC 4.20-6.00 m/uL [place] RBC 4.29 LAB WHGB 13.0-17.0 g/dL Low [place] Hemoglobin 12.5 LAB WHCT 39.0-51.0 % Low [place] Hematocrit 37.3 LAB WMCV 80.0-100.0 fL [place] MCV 86.9 LAB WMCH 26.0-34.0 pg [place] MCH 29.1 LAB WMCHC 30.5-36.0 g/dL [place] MCHC 33.5 LAB WRDW 11.5-15.0 % [place] RDW 14.9 LAB WPLT 150-400 k/uL [place] Platelet Cnt 156 LAB WMPV 9.0-12.7 fL [place] MPV 9.2 Result Comment: Test performed at: [facility] [place] [facility], [address] [place] [address]. LAB ABGRAN 1.45-7.50 k/uL Absol Gran 2.95 Count ROLANDO COX BMP Collected: 08/21/2017 Status: F Source: [place] 9:45 AM [facility] REPOSITORY TYPE CODE TESTS RESULT OUT OF REFERENCE UNITS RANGE LAB NAWB 135-146 mmol/L Sodium, Whole 141 Bld LAB K1WB 3.5-5.0 mmol/L Potassium,Who 4.2 le Bld LAB CLWB 98-110 mmol/L Chloride, 105 Whole Bld LAB ICAWB 1.08-1.30 mmol/L Ionized 1.24 Calcium, WB Result Comment: Please note: This value represents ionized calcium not total calcium. LAB CO2WB 23-32 mmol/L TCO2, Whole Blood 25 LAB GLUWB 65-100 mg/dL Glucose, Whole Bld 96 LAB BUNWB 10-25 mg/dL BUN, Whole Blood 17 LAB BCRET 0.70-1.40 mg/dL Creatinine,Wh ole Bld 1.00 LAB AGAPWB 0-15 mmol/L Anion Gap, Whole Bld 11 LAB GFRAA eGFR- Amer. >60 LAB GFRNAA . eGFR-All Other Races >60 Result Comment: eGFR (Estimated GFR) Units of measure: mL/min/1.73 meters squared eGFR is derived from the reexpressed MDRD Study equation using the following parameters: serum creatinine, age, gender and race. The creatinine assay has been calibrated to be traceable to IDMS. An eGFR <60 mL/min/1.73m2 for >3 months is consistent with chronic kidney disease. Refer to KDOQI guidelines for clinical interpretation. In patients with unstable renal function, e.g. those with acute kidney injury, the eGFR may not accurately reflect actual GFR. HOSP Observed: 08/21/2017 Status: COMPLETED Source: [place] 9:45 AM [facility] REPOSITORY Infusion Center ([facility]) BECCA MAGANA ([id number]) 1955 M Date Time Provider Department 08/21/17 9:45 AM LAB[facility] During your visit today, we recorded the following information about you: Referring Provider: GERALDO STONE [[id number]] Allergies As of Date: 08/21/2017 (No Known Allergies) Date Reviewed: 08/14/2017 Reviewed by: Fina Myrick Ct - Fully Assessed Reason for Visit: Blood Draw (CVAD) [1758] Primary Visit Diagnosis:Malignant neoplasm of colon, unspecified part of colon (HCC) [C18.9] Prescriptions as of 08/21/2017 Sig: OMEPRAZOLE 20 MG CAPSULE,REJI* Take 2 capsules by mouth once* ONDANSETRON HCL 8 MG TABLET Take 1 tablet by mouth every * [id number]-MDLPQZW-VEGAH* Take 10 mL by mouth every 4 h* Problem List As Of Date 08/21/2017 Noted Resolved Colon cancer (HCC) [C18.9] Peritoneal carcinomatosis (HCC) [C78.6, C80.1] INVALID FOR* Metastasis to liver (HCC) [C78.7] INVALID FOR* More... Drug rash [L27.0] INVALID FOR* Encounter Status:Closed by SHREE MAN on 08/21/17 HEPATIC FUNCTN PANEL Collected: 08/21/2017 Status: F Source: [place] 9:45 AM [facility] REPOSITORY TYPE CODE TESTS RESULT OUT OF REFERENCE UNITS RANGE LAB ALB 3.9-4.9 g/dL Albumin 4.4 LAB TBIL 0.2-1.3 mg/dL Bilirubin, Total 0.4 LAB CBIL <0.2 mg/dL Bilirubin,Conjuga <0.2 [place] LAB ALKP 36-108 U/L Alkaline Phosphatase 83 LAB AST 14-40 U/L AST 24 LAB ALT 10-54 U/L ALT 19 LAB TP 6.3-8.0 g/dL Protein, Total 7.0 Performed By: #### HFP, CEA #### [facility] [place], [place] [address] CEA Collected: 08/21/2017 Status: F Source: [place] 9:45 AM [facility] REPOSITORY TYPE CODE TESTS RESULT OUT OF RANGE REFERENCE UNITS LAB CEA 0.0-2.9 ng/mL High CEA 10.2 Result Comment: Test analyzed by the Brandon DxI method. Performed By: #### HFP, CEA #### [facility] [address] [place] [address] ALLERGIES ALLERGIES DATE TYPE / CODE NAME / CODE REACTION SEVERITY SOURCE 06/21/2018 Drug hydromorphone/F Other Unknown [place] Allergy/299950738(S 123211286(RXNOR [facility] N[facility]) M) Hospital Repository 06/20/2018 Drug No Known Unknown [place] Allergy/833836402(S Allergies/F[address] [place]) [address](RXNORM) Hospital Repository Drug NO KNOWN [place] Class/915719480(SNO ALLERGIES Clinic Other MED CT) [place] Repository NG/285758253(SNOMED NO KNOWN [facility] CT) ALLERGIES [facility] Repository Miscellaneous No Known Drug Moderate Refugio Pomerene Allergy/527524094(S Allergies (S[facility]ity [facility]) Modifier) Hospital (Qualifier Repository Value) ENCOUNTERS ENCOUNTERS ADMIT/DISCHARGE ACCOUNT NUMBER ADMITTING ENCOUNTER LOCATION SOURCE CLASS 07/10/2018 [id number] Ambulatory [facility] MEDICAL Repository CENTERBuildi ng:AGGENS6 06/26/2018/07/05/20 [id number] JUSTIN DHILLON Inpatient [address] Repository 06/26/2018/07/05/20 [id number] JUSTIN DHILLON Inpatient [address] MEDICAL Repository WALTERSBuildi nARoom: [id number]: 06/26/2018/07/02/20 [id number] Ambulatory [address] Repository 06/26/2018/07/02/20 [id number] Ambulatory [address] MEDICAL Repository WALTERSBuildi ng:AGGENS1 06/24/2018/06/25/20 [id number] Ambulatory [address] Main [place] Repository 06/20/2018/06/21/20 [id number] Alex, Ambulatory [place] ding:[id number] Repository : TI212Dyo: 1 06/20/2018 [id number] Alex, [facility]/2018 [id number] Amrik Johnson BMSBuilding: [facility] ESP[facility] Repository 06/17/2018/06/18/20 [id number] Ambulatory [facility] Main [place] Repository 06/17/2018/06/18/20 [id number] Ambulatory [facility] [place] Repository 06/17/2018/06/17/20 [id number] Ambulatory [facility] [place] Repository 06/17/2018/06/17/20 [id number] Ambulatory [facility] [place] Repository 06/17/2018/06/17/20 [id number] Ambulatory [facility] [place] Repository 06/07/2018/06/10/20 [id number] Ambulatory [facility] [place] Repository 06/05/2018/06/06/20 [id number] Ambulatory [facility] [place] Repository 06/03/2018/06/03/20 [id number] Ambulatory [facility] [place] Repository 06/03/2018/06/03/20 [id number] Ambulatory [facility] [place] Repository 06/03/2018/06/04/20 [id number] Ambulatory [facility] [place] Repository 06/03/2018/06/03/20 [id number] Ambulatory [facility] [place] Repository 05/24/2018/05/27/20 [id number] Ambulatory [facility] [place] Repository 05/22/2018/05/23/20 [id number] Ambulatory [facility] [place] Repository 05/20/2018/05/20/20 [id number] Ambulatory [facility] [place] Repository 05/20/2018/05/21/20 [id number] Ambulatory [facility] [place] Repository 05/20/2018/05/20/20 [id number] Ambulatory [facility] [place] Repository 05/06/2018/05/10/20 [id number] SKYLER GRESHAM Inpatient Buildin Refugio Amaro MD Encounter Room: [address] [place] [address] Repository 04/26/2018/04/29/20 [id number] Ambulatory [facility] [place] Repository 04/24/2018/04/25/20 [id number] Ambulatory [facility] [place] Repository 04/23/2018/04/23/20 [id number] Ambulatory [facility] [place] Repository 04/23/2018/04/24/20 [id number] Ambulatory [facility] [place] Repository 04/23/2018/04/23/20 [id number] Ambulatory [facility] [place] Repository 04/08/2018/04/09/20 [id number] Ambulatory [facility] [place] Repository 04/08/2018/04/08/20 [id number] Ambulatory [facility] [place] Repository 04/08/2018/04/08/20 [id number] Ambulatory [place] [place] Repository 04/05/2018/04/08/20 [id number] Ambulatory [place] [place] Repository 04/05/2018/04/05/20 [id number] Ambulatory [facility] [place] Repository 04/05/2018/04/08/20 [id number] Ambulatory [facility] [place] Repository 04/05/2018/04/05/20 [id number] Ambulatory [place] [place] Repository 04/05/2018/04/05/20 [id number] Ambulatory [facility] [place] Repository 04/05/2018/04/05/20 [id number] Ambulatory [facility] [place] Repository 03/28/2018/03/29/20 [id number] Ambulatory [facility] [place] Repository 03/26/2018/03/27/20 [id number] Ambulatory [place] [place] Repository 03/22/2018/03/26/20 [id number] Ambulatory [place] [place] Repository 03/19/2018/03/20/20 [id number] Ambulatory [place] [place] Repository 03/19/2018/03/19/20 [id number] Ambulatory [facility] [place] Repository 03/19/2018/03/19/20 [id number] Ambulatory [place] [place] Repository 03/19/2018/03/19/20 [id number] Ambulatory [place] [place] Repository 03/15/2018/03/18/20 [id number] Ambulatory [place] [place] Repository 03/13/2018/03/14/20 [id number] Ambulatory [facility] [place] Repository 03/11/2018/03/12/20 [id number] Ambulatory [facility] [place] Repository 03/11/2018/03/11/20 [id number] Ambulatory [place] [place] Repository 03/11/2018/03/11/20 [id number] Ambulatory [facility] [place] Repository 02/28/2018/03/04/20 [id number] Ambulatory [facility] [place] Repository 02/26/2018/02/28/20 [id number] Ambulatory [facility] [place] Repository 02/25/2018/02/27/20 [id number] Ambulatory [facility] [place] Repository 02/25/2018/02/26/20 [id number] Ambulatory [facility] [place] Repository 02/25/2018/02/26/20 [id number] Ambulatory [facility] [place] Repository 02/24/2018/02/26/20 [id number] IZABELA MAGANA Ambulatory Buildin[address] [place] [address] Room: [address] [place] [address] Repository 02/22/2018/02/23/20 [id number] Ambulatory [facility] [place] Repository 02/22/2018/02/26/20 [id number] Ambulatory [facility] [place] Repository 01/31/2018/02/01/20 [id number] Ambulatory [facility] [place] Repository 01/29/2018/01/30/20 [id number] Ambulatory [facility] [place] Repository 01/29/2018/01/30/20 [id number] Ambulatory [facility] [place] Repository 01/29/2018/01/31/20 [id number] Ambulatory [facility] [place] Repository 01/17/2018/01/19/20 [id number] Ambulatory [facility] [place] Repository 12/14/2017/12/19/19 [id number] Ambulatory [facility] [place] Repository 12/12/2017 [id number] Ambulatory [facility] [place] Repository 12/12/2017/12/14/19 [id number] Ambulatory [facility] [place] Repository 12/12/2017 [id number] Ambulatory [facility] [place] Repository 12/04/2017 [id number] Ambulatory [facility] [place] Repository 12/04/2017 [id number] Ambulatory [facility] [place] Repository 12/04/2017/12/06/19 [id number] Ambulatory [facility] [place] Repository 12/03/2017/12/04/19 [id number] Ambulatory [facility] [place] Repository 12/03/2017 [id number] Ambulatory [facility] [place] Repository 12/03/2017/12/04/19 [id number] Ambulatory [facility] [place] Repository 12/03/2017/12/04/19 [id number] Ambulatory [place] [place] Repository 11/30/2017/12/04/19 [id number] Ambulatory [facility] [place] Repository 11/28/2017/11/30/19 [id number] Ambulatory [facility] [place] Repository 11/27/2017 [id number] Ambulatory [facility] [place] Repository 11/27/2017/11/29/19 [id number] Ambulatory [facility] [place] Repository 11/27/2017/11/28/19 [id number] Ambulatory [facility] [place] Repository 11/16/2017/11/20/19 [id number] Ambulatory [place] [place] Repository 11/14/2017/11/16/19 [id number] Ambulatory [place] [place] Repository 11/14/2017 [id number] Ambulatory [facility] [place] Repository 11/14/2017/11/15/19 [id number] Ambulatory [facility] [place] Repository 11/02/2017/11/06/19 [id number] Ambulatory [place] [place] Repository 10/31/2017/11/02/19 [id number] Ambulatory [place] [place] Repository 10/30/2017/11/01/19 [id number] Ambulatory [facility] [place] Repository 10/30/2017 [id number] Ambulatory [facility] [place] Repository 10/30/2017/10/31/19 [id number] Ambulatory [facility] [place] Repository 10/05/2017/10/09/19 [id number] Ambulatory [place] [place] Repository 10/03/2017/10/05/19 [id number] Ambulatory [facility] [place] Repository 10/03/2017 [id number] Ambulatory [facility] [place] Repository 10/03/2017/10/04/19 [id number] Ambulatory [facility] [place] Repository 09/28/2017 [id number] Ambulatory [facility] [place] Repository 09/28/2017/10/03/19 [id number] Ambulatory [place] [place] Repository 09/28/2017/03/09 [id number] Ambulatory [facility] [place] Repository 09/28/2017/09/29/19 [id number] Ambulatory [place] [place] Repository 09/25/2017 [id number] [facility] [place] Rep[facility] 09/25/2017/09/26/19 [id number] Ambulatory FREIDA Valenzuela [address] MEDICAL Repository CENTERBuildi ng:AKLB 09/21/2017/09/25/19 [id number] Ambulatory [facility] [place] Repository 09/19/2017/09/21/19 [id number] Ambulatory [facility] [place] Repository 09/18/2017/09/19/19 [id number] Ambulatory [place] [place] Repository 09/18/2017 [id number] Ambulatory [facility] Main [place] Repository 09/18/2017/09/18/19 [id number] Ambulatory [place] [place] Repository 09/07/2017/09/10/19 [id number] Ambulatory [place] [place] Repository 09/05/2017/09/06/19 [id number] Ambulatory [facility] [place] Repository 09/05/2017/09/05/19 [id number] Ambulatory [facility] [place] Repository 09/05/2017 [id number] Ambulatory [facility] [place] Repository 08/24/2017/08/27/19 [id number] Ambulatory [facility] [place] Repository 08/22/2017/08/23/19 [id number] Ambulatory [facility] [place] Repository 08/21/2017/08/22/19 [id number] Ambulatory [facility] [place] Repository 08/21/2017/08/21/19 [id number] Ambulatory [facility] [place] Repository 08/21/2017/08/21/19 [id number] Ambulatory [facility] [place] Repository 08/21/2017/08/21/19 [id number] Ambulatory [facility] [place] Repository 08/21/2017/08/21/19 [id number] Ambulatory [facility] [place] Repository 05/28/2017/05/31/20 [id number] Amrik ROBERTS Buildin Refugio Spear [address] Room: [address] [place] [address] Repository PAYERS PAYERS ENCOUNTER GUARANTOR PAYER SUBSCRIBER SOURCE 07/10/2018 BECCA Galan Primary Insurance:MMO BECCA Galan [facility] MILLERDOB: SUPERMED PLUSPolicy MILLERDOB: [facility] Number: [id number] [address] [address] [id number] [address] [place] [address], Date: [place] [address]Pcm: (HP) 06/26/2018 BECCA Galan Primary Insurance:MMO BECCA Galan [facility] MILLERDOB: SUPERMED PLUSPolicy MILLERDOB: [facility] Number: [id number] [address]ository [address] [id number] [address] [place] [address], Date: [place] [address]Jqa: (HP) 06/26/2018 BECCA Galan Primary Insurance:MMO [facility] MILLERDOB: SUPERMED PLUSPolicy MILLERDOB: [facility] Number: [id number] Repository [facility] [address] [id number] [address] [place] [address], Date: [place] [address]Uoc: (HP) 06/20/2018 ALLYN Primary BECCA Galan [place] [id number] Insurance:MEDICAL MILLERDOB: [address] [id number] [address]Jgi: Number: Repository [id number] (HP) Date:[id number], [place] [address]VY: 06/20/2018 Secondary NOT GIVENUNK [place] Insurance:SELF PAY [facility] Number: Effective Repository Date:2018-06-20 06/20/2018 ALLYN Primary BECCA Galan [place] [id number] [address] Insurance:MEDICAL MILLERDOB: [facility] [id number], Number: Repository [place] [id number]: [id number] Date:[id number] (HP) [address], [place] [address]ZE: 06/20/2018 Secondary NOT GIVENUNK [place] Insurance:SELF PAY [facility] Number: Effective Repository Date:2018-06-20 06/20/2018 BECCA Galan Primary BECCA Marshall [id number] Insurance:MEDICAL MILLERDOB: [address] [id number] [address]Sun: Number: Repository [id number] () Date:5328-02-85ME [address] [place] [address]RN: 06/20/2018 Secondary NOT GIVENUNK [place] Insurance:SELF PAY [facility] Number: Effective Repository Date:2018-06-20 05/06/2018 BECCA Galan Primary BECCA Spear MILLERDOB: Insurance:MEDICAL MILLERDOB: [facility] [id number] INPATIENTPolicy 9 [facility] Repository [address] [place] [address], Number: [address], [place] [id number] D[place] [id number]: Date:Plan Name: () 02/24/2018 BECCA Galan Primary BECCA Spear MILLERDOB: Insurance:MEDICAL MILLERDOB: [facility] [id number] OUTPATIENTPolicy [address] [facility] [address] Repository [address] [place] [address], Number: [address], [place] [id number] Dc [id number]: Date:Plan Name: () 09/25/2017 BECCA Galan Primary Insurance:O BECCA Valenzuela General [facility] MILLERDOB: [facility] Number: [id number] [id number] [address] [place] [address], Date: [place] [id number]: () 05/28/2017 BECCA Galan Primary BECCA Spear MILLERDOB: Insurance:MEDICAL MILLERDOB: [facility] [id number] [facility] [id number] [facility] [address] OUTPATIENTPolicy [address] [facility] [address] Repository [address], Number: [address], [place] [id number] Dc [id number]: Date:Plan Name: ()
== END 2018-06-21 12:32 | disposition home or self-care (01) ==
LOC: ED 17:37 → MS3 21:08
PROVIDERS: Admitting Provider Hospitalist; Emergency Provider Emergency Medicine; Family Provider Family Medicine; PCP Family Medicine; Visit Provider Hospitalist
DX: G89.3 Neoplasm related pain (acute) (chronic) (principal); C18.9 Malignant neoplasm of colon, unspecified; C78.6 Secondary malignant neoplasm of retroperitoneum and peritoneum; Z86.711 Personal history of pulmonary embolism; Z79.899 Other long term (current) drug therapy; Z79.01 Long term (current) use of anticoagulants; R33.9 Retention of urine, unspecified; Z87.891 Personal history of nicotine dependence; D64.81 Anemia due to antineoplastic chemotherapy; T45.1X5A Adverse effect of antineoplastic and immunosuppressive drugs, initial encounter; D72.819 Decreased white blood cell count, unspecified; C78.7 Secondary malignant neoplasm of liver and intrahepatic bile duct
CPT/HCPCS: 36591; 74177; 80048; 80076; 83690; 85025; 96361; 96374; 96375; 96376; 97802; 99218; 99281; J7030; J7120; Q9967; A4216; G0378; J2405

== ENCOUNTER 2021-04-19 16:09 | Emergency (ER) | payer MEDICARE, OTHER, SELFPAY ==
[2021-04-19 16:11] VITALS: BP 133/89; PULSE 88; RESP 16; TEMP 36.6; O2SAT 100; BMI 24.6
--- NOTE | 2021-04-19 17:42 | EKG12_ITS ---
Test Reason : Blood Pressure : / mmHG Vent. Rate : 082 BPM Atrial Rate : 082 BPM P-R Int : 178 ms QRS Dur : 090 ms QT Int : 380 ms P-R-T Axes : 005 051 014 degrees QTc Int : 443 ms Normal sinus rhythm Nonspecific ST abnormality Abnormal ECG Confirmed by CHELI RODARTE, JUSTIN ([id number]), movie editor LUZ ELENA GRAY ([id number]) on 04/21/2021 8:46:10 AM Referred By: JOSH Confirmed By:JUSTIN BOWER MD
--- NOTE | 2021-04-19 17:42 | CT_ITS ---
STUDY: CT ABDOMEN AND PELVIS WITH CONTRAST REASON FOR EXAM: Male, 65 years old. LLQ pain RADIATION DOSAGE (If Supplied By Facility): CTDIvol = ( 13.83 ) mGy, DLP = ( 785.06 ) mGycm TECHNIQUE: Transaxial images were obtained from the dome of the diaphragm to the symphysis pubis without oral contrast. IV 100mL Isovue-370 was administered. Sagittal and coronal images were reconstructed. Individualized dose optimization techniques were used for this CT. COMPARISON: CT of abdomen and pelvis dated June 20, 2018 FINDINGS: Multiple small metastatic nodules are scattered throughout the visualized lung bases as well as the right middle lobe and lingula of the left upper lobe. Most of these nodules were not present on the prior CT of abdomen and pelvis. Lobular soft tissue mass between the rectus abdominis muscles in the anterior abdominal wall has increased in size and measures 10 x 3.70 cm and is likely a malignant metastatic implant. Multiple hypodense metastatic lesions are scattered throughout the right lobe of the liver with the largest lesion measuring 5.4 cm. The left lobe is unremarkable. These lesions were not seen on the prior CT of abdomen and pelvis. There are surgical clips in the gallbladder fossa consistent with a prior cholecystectomy. Normal spleen. Normal pancreas. Normal bilateral adrenal glands. Normal right kidney. Normal left kidney. Normal visualized stomach. Normal small intestine. Stable surgical suture material of the right transverse and proximal colon related to prior colonic surgical resection. Surgical suture material is also present in the sigmoid colon region. A few colonic diverticula are present. The transverse colon is mildly gaseous distended. There is diffuse atherosclerotic calcification of the abdominal aorta, without a demonstrated aneurysm. Normal inferior vena cava. Normal retroperitoneum. Normal urinary bladder. The prostate gland is mildly enlarged. Normal abdominal wall. There are diffuse degenerative changes of the visualized lumbar spine. IMPRESSION: Metastatic disease to the liver and bilateral lungs and abdominal wall 1. Multiple small metastatic nodules are scattered throughout the visualized lung bases as well as the right middle lobe and lingula of the left upper lobe. Most of these nodules were not present on the prior CT of abdomen and pelvis. 2. Lobular soft tissue mass between the rectus abdominis muscles in the anterior abdominal wall has increased in size and measures 10 x 3.70 cm and is likely a malignant metastatic implant. 3. Multiple hypodense metastatic lesions are scattered throughout the right lobe of the liver with the largest lesion measuring 5.4 cm. The left lobe is unremarkable. These lesions were not seen on the prior CT of abdomen and pelvis. Electronically Signed: Keshav Hayes MD at 19:25 EDT , Service support , CT/Abdomen/Pelvis W IV Cont ONLY
--- NOTE | 2021-04-19 17:47 | EDS_ITS ---
HPI History of Present Illness Chief Complaint: Abd Pain Informant: patient Onset/Context/Timing Onset: Days (2) Context: Gradual Onset Timing: Continuous Quality: pain Location: LLQ Current Severity: Mild Maximum Severity: Moderate Worsened by: walking and being upright Relieved by: resting Associated Symptoms Associated Symptoms: no other new sx; see below Narrative Narrative: Patient states that he was sent by his oncologist. Patient is on chemotherapy for colorectal cancer, he received 4 rounds of vectibix 2 weeks apart from each other, his last treatment was 3 weeks ago, he now is getting a different chemotherapy because of a rash that he broke out with that is thought to be due to this medication, he states that rash has been there for 1-2 months. It is scaly, scabs, it is on all of his extremities, and actually seems like it is a little worse now, with regards to its appearance. It is itchy, not painful. He is on Xarelto for prior pulmonary embolus, he has not been bleeding from anywhere despite the diarrhea associated with the chemotherapy. The notes sent from his oncologist office states that he has multiple complaints of fatigue, weakness, shortness of breath, rash, dark tea colored urine, diarrhea .... Stabbing pain where his colorectal tumors have been in the past .... Shortness of breath with exertion stated he feels that he is going to pass out or fall over at times due to the shortness of breath. According to the notes, it sounds like he was referred to the emergency department because of all of his symptoms. When I asked patient about these, he states that the dyspnea with exertion has been there forever, and is just due to the chemotherapy. He admits that he has been worse than usual lately. He has not had syncope. He denies any palpitations or associated chest discomfort. He denies any edema in his lower extremities or orthopnea. He denies any fevers or chills. He also states that he feels he may be dehydrated. His appetite is poor and he is having a lot of diarrhea. [facility] Medical History (Updated 04/19/21 @ 21:[address] Brian Clraos MD) Colon cancer Hx pulmonary embolism Malignant neoplasm metastatic to colon with unknown primary site Home Medications ondansetron HCl 8 mg PO PRN PRN 06/20/18 [History Last Taken Unknown] potassium chloride [Klor-Con M20] 40 meq PO BID 06/20/18 [History Last Taken 06/20/18] promethazine 25 mg PO PRN PRN 06/20/18 [History Last Taken 06/20/18] rivaroxaban [Xarelto] 20 mg PO DAILY 06/20/18 [History Last Taken 06/20/18] bisacodyl 5 mg PO DAILY PRN PRN #30 tablet 06/21/18 [Rx Last Taken Unknown] magnesium hydroxide 30 ml PO DAILY PRN PRN #1 bottle 06/21/18 [Rx Last Taken Unknown] morphine 15 mg PO BID #14 tablet 06/21/18 [Rx Last Taken Unknown] sennosides-docusate sodium [Stool Softener-Stimulant Laxat] 2 tab PO BID #60 tab let 06/21/18 [Rx Last Taken Unknown] oxycodone-acetaminophen 1 tab PO Q6H PRN PRN 3 Days #12 tablet 04/19/21 [Rx Last Taken Unknown] Allergy/AdvReac Type Severity Reaction Status Date / Time hydromorphone [From Dilaudid] AdvReac Other Verified 04/19/21 16:11 Social History Smoking Status: Former smoker ROS ROS ED Constitutional Constitutional ED: Reports anorexia and malaise; Denies body ache(s), chills or fever(s) Eyes Eyes: Denies change in vision or diplopia ENT ENT ED: Denies rhinorrhea or sore throat Cardiovascular Cardiovascular: Denies chest pain or palpitations Respiratory/Chest Respiratory/Chest: Reports dyspnea on exertion; Denies cough Gastrointestinal Gastrointestinal: Reports abdominal pain and diarrhea; Denies nausea or vomiting Genitourinary Genitourinary ED: Denies dysuria or hematuria Musculoskeletal Musculoskeletal: Reports back pain; Denies neck pain Integumentary Reports as per HPI and rash; Denies abscess Neurologic Neurologic: Denies headache(s), paresthesias or weakness Psychiatric Psychiatric: Denies anxiety or suicidal thoughts EXAM Physical Exam Const Vital Signs: 04/19/21 16:11 04/19/21 19:28 Temperature 98 F Temperature Source Temporal Pulse Rate 88 82 Respiratory Rate 16 20 H Blood Pressure 133/89 H 141/78 H Blood Pressure Mean 103 99 Pulse Ox 100 100 Oxygen Delivery Method Room Air Room Air Positive well nourished and well developed General Appearance ED: well developed and NAD HEENT Reports moist mucous membranes normocephalic and atraumatic Eyes PERRL and EOMs intact bilaterally Neck full ROM and supple Resp normal respiratory effort and clear to auscultation bilaterally Cardio regular rate, regular rhythm and no murmurs Rate: Negative for tachycardic GI non-distended GI Narrative: Tender left periumbilical area with subtle amount of distention at that area. No guarding or rebound tenderness. No other areas of tenderness. No palpable mass. Auscultation: normoactive bowel sounds Palpation: soft Back/Spine no CVA tenderness General Back: other FROM Extremity full ROM General Extremety ED: Negative for edema, pulses abnormal or tenderness General Extremity: Negative for edema or pulses abnormal Neuro oriented x3, CN's II-XII intact bilaterally and no sensory deficits noted Sensorium / Orientation: awake and alert Motor Exam: strength 5/5 throughout Skin no wounds Skin Narrative: Scaly rash with some mild superficial-appearing scabbing, no signs of infection, mostly on forearms and somewhat on his legs as well. No petechia or bullae. MDM MDM MDM Narrative Medical decision making narrative: The patient is feeling better after analgesics. His work-up basically shows evidence of metastases in his chest, his abdominal wall where he is distended and feeling discomfort/tenderness, as well as his liver. There is nothing emergent on the CT. He was hydrated with a liter of IV fluids, he was mildly prerenal prior to this. He felt better. I think he can go home, he has nothing for pain and was offered a prescription for analgesics which he would like. As I discussed with him, the last CT we have on file here is from 2018, hence the radiologist's interpretation that this is all new. As I discussed the location and presence of all of these masses, he indicates that he is not surprised and already knows about all of that. Since he had imaging recently that I was previously unaware of, it is at [facility] and I am unable to have imaging compared since we do not have access to it at this time. Obviously I cannot tell him that his metastases are worse or better given this context and he understands that. He was concerned about brown/tea colored urine. His urinalysis shows that it is most likely due to urobilinogen and this is probably due to hepatic metastases. Therefore prior to sending this copy to his oncologist, we will have liver enzymes performed and the patient is comfortable going home at this time. I do not think he needs to be evaluated for pulmonary embolus since he is fully anticoagulated and compliant with his medication. His cardiac testing was normal here. Lab Data Attestation: I reviewed the patient's lab results. Labs: Laboratory Results - last 24 hr 04/19/21 04/19/21 04/19/21 17:55 17:55 17:55 WBC 7.2 RBC 3.85 L Hgb 11.4 L Hct 34.0 L MCV 88.3 MCH 29.6 MCHC 33.5 RDW Std Deviation 55.3 H RDW Coeff of Nia 17.5 H Plt Count 251 MPV 9.3 Immature Gran % (Auto) 0.400 Neut % (Auto) 52.2 Lymph % (Auto) 30.0 [place] % (Auto) 10.5 H Eos % (Auto) 5.4 H Baso % (Auto) 1.5 H Absolute Neuts (auto) 3.8 Absolute Lymphs (auto) 2.17 Nucleated RBC % 1.0 Sodium 141 Potassium 3.1 L Chloride 108 H Carbon Dioxide 24.0 Anion Gap 9 BUN 15 Creatinine 0.94 Estim Creat Clear Calc 83.70 Est GFR (MDRD) Af Amer 103 Est GFR (MDRD) Non-Af 85 BUN/Creatinine Ratio 15.9 Glucose 100 Calcium 8.3 L Total Bilirubin Direct Bilirubin AST ALT Alkaline Phosphatase Troponin I High Sens 9 B-Natriuretic Peptide 37.2 Total Protein Albumin Globulin Urine Color Urine Clarity Urine pH Ur Specific [place] Urine Protein Urine Glucose (UA) Urine Ketones Urine Occult Blood Urine Nitrite Urine Bilirubin Urine Urobilinogen Ur Leukocyte Esterase Urine RBC Urine WBC Ur Squamous Epith Cells Urine Bacteria Urine Mucus 04/19/21 04/19/21 19:25 20:47 WBC RBC Hgb Hct MCV MCH MCHC RDW Std Deviation RDW Coeff of Nia Plt Count MPV Immature Gran % (Auto) Neut % (Auto) Lymph % (Auto) [place] % (Auto) Eos % (Auto) Baso % (Auto) Absolute Neuts (auto) Absolute Lymphs (auto) Nucleated RBC % Sodium Potassium Chloride Carbon Dioxide Anion Gap BUN Creatinine Estim Creat Clear Calc Est GFR (MDRD) Af Amer Est GFR (MDRD) Non-Af BUN/Creatinine Ratio Glucose Calcium Total Bilirubin 1.30 H Direct Bilirubin 0.36 H AST 23 ALT 19 Alkaline Phosphatase 63 Troponin I High Sens B-Natriuretic Peptide Total Protein 6.8 Albumin 3.2 Globulin 3.6 Urine Color Karla Urine Clarity Clear Urine pH 6.0 Ur Specific [place] 1.020 Urine Protein 30 H Urine Glucose (UA) 50 H Urine Ketones 5 H Urine Occult Blood Negative Urine Nitrite Negative Urine Bilirubin Negative Urine Urobilinogen 1 H Ur Leukocyte Esterase Negative Urine RBC 0 SEEN Urine WBC 0 SEEN Ur Squamous Epith Cells 0 SEEN Urine Bacteria 0 SEEN Urine Mucus 1+ Radiography Diagnostic Testing: Radiology Impression Abdomen/Pelvis CT 04/19/21 17:42 Chest X-Ray 04/19/21 18:35 IMPRESSION: 1. Several small rounded nodular densities are seen in the bilateral lower lobes compatible with metastatic lesions which are better visualized on the CT of abdomen and pelvis dated April 19, 2021 Electronically Signed: Keshav Hayes MD at 19:18 EDT , Service support , [facility] [id number] [place] [id number] Abdomen/Pelvis W IV Cont ONLY MR#: [id number]: BECCA MAGANA ARep #:[id number]: [id number] From: Keshav Hayes MDPCP:Dr. Mu Resendiz MD Status:REG ERStudy:Abdomen/Pelvis W IV Cont ONLY Date of Exam:04/19/21Exam#[id number] Ordering Dr: Brian Claros MD STUDY: CT ABDOMEN AND PELVIS WITH CONTRAST REASON FOR EXAM: Male, 65 years old. LLQ pain RADIATION DOSAGE (If Supplied By Facility): CTDIvol = ( 13.83 ) mGy, DLP = ( 785.06 ) mGycm TECHNIQUE: Transaxial images were obtained from the dome of the diaphragm to the symphysis pubis without oral contrast. IV 100mL Isovue-370 was administered. Sagittal and coronal images were reconstructed. Individualized dose optimization techniques were used for this CT. COMPARISON: CT of abdomen and pelvis dated June 20, 2018 FINDINGS: Multiple small metastatic nodules are scattered throughout the visualized lung bases as well as the right middle lobe and lingula of the left upper lobe. Most of these nodules were not present on the prior CT of abdomen and pelvis. Lobular soft tissue mass between the rectus abdominis muscles in the anterior abdominal wall has increased in size and measures 10 x 3.70 cm and is likely a malignant metastatic implant. Multiple hypodense metastatic lesions are scattered throughout the right lobe of the liver with the largest lesion measuring 5.4 cm. The left lobe is unremarkable. These lesions were not seen on the prior CT of abdomen and pelvis. There are surgical clips in the gallbladder fossa consistent with a prior cholecystectomy. Normal spleen. Normal pancreas. Normal bilateral adrenal glands. Normal right kidney. Normal left kidney. Normal visualized stomach. Normal small intestine. Stable surgical suture material of the right transverse and proximal colon related to prior colonic surgical resection. Surgical suture material is also present in the sigmoid colon region. A few colonic diverticula are present. The transverse colon is mildly gaseous distended. There is diffuse atherosclerotic calcification of the abdominal aorta, without a demonstrated aneurysm. Normal inferior vena cava. Normal retroperitoneum. Normal urinary bladder. The prostate gland is mildly enlarged. Normal abdominal wall. There are diffuse degenerative changes of the visualized lumbar spine. IMPRESSION: Metastatic disease to the liver and bilateral lungs and abdominal wall 1. Multiple small metastatic nodules are scattered throughout the visualized lung bases as well as the right middle lobe and lingula of the left upper lobe. Most of these nodules were not present on the prior CT of abdomen and pelvis. 2. Lobular soft tissue mass between the rectus abdominis muscles in the anterior abdominal wall has increased in size and measures 10 x 3.70 cm and is likely a malignant metastatic implant. 3. Multiple hypodense metastatic lesions are scattered throughout the right lobe of the liver with the largest lesion measuring 5.4 cm. The left lobe is unremarkable. These lesions were not seen on the prior CT of abdomen and pelvis. Electronically Signed: Keshav Hayes MD at 19:25 EDT , Service support , CT/Abdomen/Pelvis W IV Cont ONLY EKG Initial EKG: Attestation: I personally reviewed and interpreted this EKG as follows: Interpretation: Sinus Rhythm and No Acute Injury Pattern Discharge Plan Triage Chief Complaint: Abd Pain ED Provider: Brian Claros Dx/Rx/DC Orders Clinical Impression: Abdominal pain, Metastatic colorectal cancer, Dyspnea on exertion, Mild dehydration, Hyperbilirubinemia Instructions: ED Dehydration (Adult) Prescriptions: New oxycodone-acetaminophen [oxycodone-acetaminophen] 1 TABLET tablet 1 tab PO Q6H PRN PRN (Reason: Pain) 3 Days Qty: 12 RF: 0 No Action ondansetron HCl 8 MG tablet 8 mg PO PRN PRN (Reason: chemo) RF: 0 potassium chloride [Klor-Con M20] 20 MEQ tablet,ER particles/crystals 40 meq PO BID RF: 0 promethazine 25 MG tablet 25 mg PO PRN PRN (Reason: Nausea) RF: 0 rivaroxaban [Xarelto] 20 MG tablet 20 mg PO DAILY RF: 0 sennosides-docusate sodium [Stool Softener-Stimulant Laxat] 1 TABLET tablet 2 tab PO BID Qty: 60 RF: 0 magnesium hydroxide 30 ML suspension 30 ml PO DAILY PRN PRN (Reason: Constipation) Qty: 1 RF: 0 morphine 15 MG tablet 15 mg PO BID Qty: 14 RF: 0 bisacodyl 5 MG tablet 5 mg PO DAILY PRN PRN (Reason: Constipation) Qty: 30 RF: 0 Primary Care Provider: Mu Resendiz Referrals: Geraldo Stone DO [STAFF PHYSICIAN] - 2 Days Mu Resendiz MD [Primary Care Provider] - Disposition Disposition: Home, Self Care
--- NOTE | 2021-04-19 17:52 | NURSING ---
NO OLD EKGS
[2021-04-19 18:04] LABS: Absolute Lymphocyte Count 2.17 X10^3/uL (0.83-4.51); Absolute Neutrophil Count 3.8 X10^3/uL (2.0-7.7); Basophil# 0.11 X10^3/uL; Basophil% 1.5 % (0-1); Eosinophil# 0.39 X10^3/uL; Eosinophils% 5.4 % (0-5); Hemoglobin 11.4 g/dL (13.0-16.5); Lymphocyte # 2.17 X10^3/ul (0.83-4.51); Mean Corp Hgb Conc 33.5 g/dL (32-36); Mean Corpuscular Hgb 29.6 pg (27.0-32.0); Mean Corpuscular Volume 88.3 fL (80-94); Mean Platelet Vol. 9.3 fl (6.2-12.0); Monocyte# 0.76 X10^3/uL; Monocyte% 10.5 % (0-10); Neutrophil # 3.78 X10^3/uL (2.7-7.7); Neutrophil % 52.2 % (47-70); Platelet Count 251 K/mm3 (150-450); RBC Distribution Width CV 17.5 % (11.6-14.6); RBC Distribution Width SD 55.3 fl (35.1-43.9); Red Blood Count 3.85 M/mm3 (4.6-6.2); White Blood Count 7.2 K/mm3 (4.4-11.0)
[2021-04-19] MEDS: Ondansetron 4 MG/2 ML Vial IV (18:07)
[2021-04-19] MEDS: Morphine 4 MG/ML Syringe IV (18:07)
[2021-04-19] MEDS: 0.9% Normal Saline 1,000 ML 999 ML IV (18:09)
[2021-04-19 18:24] LABS: Anion Gap 9 (5-15); BUN 15 mg/dL (7-18); BUN/Creat Ratio 15.9 RATIO (10-20); Calcium,Total 8.3 mg/dL (8.5-10.1); Chloride 108 mmol/L (98-107); Creatinine, Serum 0.94 mg/dL (0.70-1.30); EST Glomerular Filtration Rate 85 mL/min (>60); Est Glom Filt Rate - Afr Amer 103 mL/min (>60); Glucose 100 mg/dL (74-106); Potassium 3.1 mmol/L (3.5-5.1); Sodium Level 141 mmol/L (136-145); Troponin-I HS 9 pg/mL (3.0-78.0)
[2021-04-19 18:29] LABS: BNP,B-Type NATRIURETIC PEPTIDE 37.2 pg/mL (0-100)
--- NOTE | 2021-04-19 18:35 | RAD_ITS ---
STUDY: X-RAY CHEST REASON FOR EXAM: Male, 65 years old. dyspnea with exertion TECHNIQUE: PA and lateral views of the chest. COMPARISON: April 19, 2021 FINDINGS: Left side PICC line tip terminates in the distal SVC. Several small rounded nodular densities are seen in the bilateral lower lobes compatible with metastatic lesions which are better visualized on the CT of abdomen and pelvis dated April 19, 2021. No visualized consolidation or pulmonary edema. The lungs are clear and expanded. There is no demonstrated pleural abnormality. Normal size heart. Normal mediastinum and sheron. Normal visualized pulmonary arteries. There is atherosclerotic tortuosity of the aortic arch and descending thoracic aorta. There are diffuse degenerative changes of the visualized thoracic spine. Normal visualized ribs, clavicles, and shoulders. There is no demonstrated abnormality of the visualized soft tissue structures of the upper abdomen. RAD/Chest PA and Lateral IMPRESSION: 1. Several small rounded nodular densities are seen in the bilateral lower lobes compatible with metastatic lesions which are better visualized on the CT of abdomen and pelvis dated April 19, 2021 Electronically Signed: Keshav Hayes MD at 19:18 EDT , Service support ,
[2021-04-19 19:28] VITALS: BP 141/78; PULSE 82; RESP 20; O2SAT 100
[2021-04-19 19:29] LABS: Bacteria 0 SEEN /hpf (None Seen); Red Blood Cells-Urine 0 SEEN /hpf (0-5); Squamous Epithelial Cells - UA 0 SEEN /hpf (0-5); White Blood Cells 0 SEEN /hpf (0-5)
[2021-04-19 19:34] LABS: Color, Urine Amber (Yellow); Glucose, Dipstick 50 mg/dl (Normal); Ketone-Dipstick 5 mg/dl (Negative); Leukocyte Esterase-Dipstick Negative /ul (Negative); Nitrite-Dipstick Negative (Negative); Occult Blood-Urine Negative /ul (Negative); Protein-Dipstick 30 mg/dl (Negative); Urine Bilirubin Dipstick Negative (Negative); Urine Clarity Clear (Clear); Urine Urobilinogen 1 mg/dl (Normal)
[2021-04-19 19:53] LABS: Mucous, Urine 1+ /hpf (<or=2+)
[2021-04-19 21:12] LABS: AST(SGOT) 23 U/L (15-37); Alanine Aminotransfer ALT/SGPT 19 U/L (16-61); Albumin, Serum 3.2 g/dL (3.2-5.0); Alkaline Phosphatase 63 U/L (45-117); Bilirubin, Direct 0.36 mg/dL (0.00-0.30); Globulin 3.6 g/dL (2.2-4.2); Protein, Total 6.8 g/dL (6.4-8.2)
--- NOTE | 2021-04-19 21:40 | ED.RN ---
pt wanted to drive home after receiving iv morphine during this visit. verified with Dr. Claros and he states pt is fine to drive home.
== END 2021-04-19 21:51 | disposition home or self-care (01) ==
PROVIDERS: Emergency Provider Emergency Medicine; PCP Family Medicine
DX: C78.02 Secondary malignant neoplasm of left lung (principal); C78.01 Secondary malignant neoplasm of right lung; C79.2 Secondary malignant neoplasm of skin; C78.7 Secondary malignant neoplasm of liver and intrahepatic bile duct; C78.5 Secondary malignant neoplasm of large intestine and rectum; C80.1 Malignant (primary) neoplasm, unspecified; E86.0 Dehydration; E80.6 Other disorders of bilirubin metabolism; R06.09 Other forms of dyspnea; Z79.01 Long term (current) use of anticoagulants; Z86.711 Personal history of pulmonary embolism; Z87.891 Personal history of nicotine dependence
CPT/HCPCS: 36591; 71046; 74177; 80048; 80076; 81001; 83880; 84484; 85025; 93005; 96361; 96374; 96375; 99282; J7030; Q9967; A4216; J2405

== ENCOUNTER 2021-09-14 08:26 | Outpatient (CLI) | payer MEDICARE, OTHER, SELFPAY ==
[2021-09-14 09:05] VITALS: BP 116/58; PULSE 92; RESP 16; TEMP 37.4; O2SAT 99; BMI 21.1
[2021-09-14 10:16] VITALS: BP 121/68; PULSE 80; RESP 16; TEMP 37.3; O2SAT 100
[2021-09-14 11:14] VITALS: BP 115/71; PULSE 72; RESP 16; TEMP 37; O2SAT 100
[2021-09-14 11:53] VITALS: BP 132/76; PULSE 74; RESP 16; TEMP 37.1
[2021-09-14 12:47] VITALS: BP 116/65; PULSE 74; RESP 16; TEMP 36.3; O2SAT 98
[2021-09-14 12:52] VITALS: BP 118/70; PULSE 75; RESP 16; TEMP 36.2; O2SAT 100
[2021-09-14] MEDS: 0.9% NaCl Peripheral Flush Adult/Peds IV (14:32)
== END 2021-09-14 23:59 | disposition home or self-care (01) ==
LOC: MEDOUTP 08:30
PROVIDERS: PCP Family Medicine; Referring Provider Internal Medicine Hematology & Oncology; Visit Provider Internal Medicine Hematology & Oncology
DX: D64.9 Anemia, unspecified (principal)
CPT/HCPCS: 36430; 86850; 86900; 86901; 86920; 86922; J7040; P9016; P9040; A4216